=== PATIENT | male | born 1965 | race Caucasian/White ===

== ENCOUNTER 2017-01-18 21:28 | Emergency (ER) | payer OTHER ==
[~2017-01-18] VITALS: Ht 167.6 cm; Wt 92.1 kg
[2017-01-18] MEDS ORDERED: SIMV20TA3 PO (21:49)
[2017-01-18] MEDS ORDERED: LISI10TA2 PO (21:49)
[2017-01-18] MEDS ORDERED: OMEP20CA12 PO (21:49)
[2017-01-18] MEDS ORDERED: PREG50CA2 PO (21:49)
[2017-01-18] MEDS ORDERED: INSU100V6 SQ (21:49)
[2017-01-18] MEDS ORDERED: GABA600T2 PO (21:49)
[2017-01-18] MEDS ORDERED: METF-479 PO (21:49)
[2017-01-18] MEDS ORDERED: morphine INJ 10 MG/ML 1ML (SYR OR VIAL) IVP STA (22:18)
[2017-01-18] MEDS ORDERED: CLINDAMYCIN 600 MG/4ML (CLEOCIN) VIAL IV STA (22:18)
[2017-01-18] MEDS ORDERED: CLINDAMYCIN 600 MG/50 ML IVPB 50 ML IV ONE ×2 (22:27→22:30)
--- NOTE | 2017-01-18 22:27 | ED Integumentary General ---
General Chief Complaint: Skin/Wound Problems Stated Complaint: SORES ON R ARM/HAND Nursing Triage Note: PT TO ED 10 W/ C/O MULTIPLE ABSCESSES TO RFA ONSET X2WKS, WORSE TONIGHT. DENIES INJURY. REDNESS NOTED AROUND OPEN WOUND, DRAINING SEROUS FLUID History of Present Illness Time seen by provider: 21:50 Initial Comments Evaluation for multiple abscesses of right upper extremity. Patient states he's been dealing with these for 2-3 weeks. The most painful one at the present time is over the fifth metacarpal on the right hand. He has multiple other abscesses on the right forearm, in bearing stages of healing. He believes the initial one started on the ulnar side of his forearm after a possible spider bite. He's been able to express drainage from them. He is a known diabetic he reports his blood sugar was 140 this morning. He has not been evaluated for the abscesses. Timing/Duration: getting worse Severity: moderate Location: hands, extremities (right upper extremity) Possible Cause: no cause identified Associated Symptoms: denies symptoms, No fever, No flushing, No headache, No nasal congestion, numbness (left lower extremity), No rash Allergies and Home Medications Allergies Coded Allergies: Penicillins (Verified Allergy, Unknown, 01/18/17) Home Medications Clindamycin HCl 300 Mg Capsule, 300 MG PO BID, #20 Ref 0 Prescribed by: ROSALINO COLE on 01/18/172300 Doxycycline Monohydrate 100 Mg Tablet, 100 MG PO BID, #20 Ref 0 Prescribed by: ROSALINO COLE on 01/18/172319 Gabapentin 600 Mg Tablet, 600 MG PO QID, (Reported) Insulin Glargine,Hum.rec.anlog 100 Unit/1 Ml Vial, 100 UNIT SQ, (Reported) Lisinopril 10 Mg Tablet, 10 MG PO DAILY, (Reported) Metformin HCl 1,000 Mg Tab.er.24, 2,000 MG PO, (Reported) Mupirocin Calcium 15 Gm Cream..g., 15 GM TP TID, #1 Ref 0 Prescribed by: ROSALINO COLE on 01/18/172300 Omeprazole 20 Mg Capsule.dr, 20 MG PO, (Reported) Pregabalin 50 Mg Capsule, 50 MG PO TID, (Reported) Simvastatin 20 Mg Tablet, 20 MG PO, (Reported) Constitutional: no symptoms reported, see HPI EENTM: no symptoms reported, see HPI Respiratory: no symptoms reported, see HPI Cardiovascular: no symptoms reported, see HPI Gastrointestinal: no symptoms reported, see HPI Genitourinary: no symptoms reported Musculoskeletal: no symptoms reported, see HPI Skin: see HPI, change in color, lesions, other (multiple abscesses right upper extremity) Psychiatric/Neurological: No Symptoms Reported, See HPI Endocrine: No Symptoms Reported, See HPI Hematologic/Lymphatic: No Symptoms Reported, See HPI All Other Systems Reviewed Negative Unless Noted: Yes Past Hjqvnxx-Xqbiif-Uvkfws Hx Patient Social History Alcohol Use: Denies Use Recreational Drug Use: No Smoking Status: Current Everyday Smoker Type Used: Cigarettes 2nd Hand Smoke Exposure: Yes Recent Foreign Travel: No Contact w/Someone Who Travel: No Recent Infectious Disease Expo: No Recent Hopitalizations: No Surgeries HX Surgeries: Yes Surgeries: Appendectomy Respiratory Hx Respiratory Disorders: No Cardiovascular Hx Cardiac Disorders: Yes Cardiac Disorders: High Cholesterol, Hypertension Neurological Hx Neurological Disorders: Yes Neurological Disorders: Neuropathy Gastrointestinal Hx Gastrointestinal Disorders: Yes Gastrointestinal Disorders: Gastroesophageal Reflux Musculoskeletal Hx Musculoskeletal Disorders: No Endocrine Hx Endocrine Disorders: Yes Endocrine Disorders: Diabetes, Insulin dep HEENT HX ENT Disorders: No Cancer Hx Cancer: No Psychosocial Hx Psychiatric Problems: No Integumentary HX Skin/Integumentary Disorder: No Blood Transfusions Hx Blood Disorders: No Reviewed Nursing Assessment Reviewed/Agree w Nursing PMH: Yes Physical Exam Vital Signs Vital Sign - Last 12Hours 01/18/17 21:34 Temp 99.0 Pulse 81 Resp 20 B/P (MAP) 148/92 Pulse Ox 97 O2 Delivery Room Air Capillary Refill : Less Than 3 Seconds General Appearance: WD/WN, no apparent distress HEENT: PERRL/EOMI, normal ENT inspection, TMs normal, pharynx normal Neck: non-tender, full range of motion, supple, normal inspection Cardiovascular: normal peripheral pulses, regular rate, rhythm, no murmur Respiratory: chest non-tender, lungs clear Gastrointestinal: normal bowel sounds, non tender, soft Extremities: normal range of motion, non-tender, normal inspection, no pedal edema, no calf tenderness, normal capillary refill Neurologic/Psychiatric: no motor/sensory deficits, alert, normal mood/affect, oriented x 3 Skin: normal color, warm/dry Skin Problem Location: upper extremities (right) Skin Problem Character: abscess (the abscess on the right hand, with mild palpation express purulent drainage. Culture obtained. The abscess on the right forearm radial side had marked erythema and tenderness. Again with mild palpation purulent drainage was expressed easily and a culture was obtained. No epitrochlear lymphadenopathy on the right upper extremity. ), drainage, erythema , tenderness Lymphatic: no adenopathy Progress/Results/Core Measures Results/Orders Lab Results Laboratory Tests Test 01/18/17 22:20 01/18/17 22:47 Range/Units White Blood Count 11.1 H 4.3-11.0 10^3/uL Red Blood Count 4.58 4.35-5.85 10^6/uL Hemoglobin 14.4 13.3-17.7 G/DL Hematocrit 42 40-54 % Mean Corpuscular Volume 92 80-99 FL Mean Corpuscular Hemoglobin 31 25-34 PG Mean Corpuscular Hemoglobin Concent 34 32-36 G/DL Red Cell Distribution Width 13.0 10.0-14.5 % Platelet Count 235 130-400 10^3/uL Mean Platelet Volume 9.7 7.4-10.4 FL Neutrophils (%) (Auto) 57 42-75 % Lymphocytes (%) (Auto) 32 12-44 % Monocytes (%) (Auto) 8 0-12 % Eosinophils (%) (Auto) 2 0-10 % Basophils (%) (Auto) 0 0-10 % Neutrophils # (Auto) 6.4 1.8-7.8 X 10^3 Lymphocytes # (Auto) 3.6 1.0-4.0 X 10^3 Monocytes # (Auto) 0.9 0.0-1.0 X 10^3 Eosinophils # (Auto) 0.2 0.0-0.3 10^3/uL Basophils # (Auto) 0.0 0.0-0.1 10^3/uL Erythrocyte Sedimentation Rate 7 0-30 MM/HR Sodium Level 139 135-145 MMOL/L Potassium Level 3.8 3.6-5.0 MMOL/L Chloride Level 107 98-107 MMOL/L Carbon Dioxide Level 22 21-32 MMOL/L Anion Gap 10 5-14 MMOL/L Blood Urea Nitrogen 11 7-18 MG/DL Creatinine 0.89 0.60-1.30 MG/DL Estimat Glomerular Filtration Rate > 60 BUN/Creatinine Ratio 12 Glucose Level 205 H 70-105 MG/DL Calcium Level 8.9 8.5-10.1 MG/DL Total Bilirubin 0.2 0.1-1.0 MG/DL Aspartate Amino Transf (AST/SGOT) 16 5-34 U/L Alanine Aminotransferase (ALT/SGPT) 17 0-55 U/L Alkaline Phosphatase 79 40-136 U/L C-Reactive Protein High Sensitivity 0.32 0.00-0.50 MG/DL Total Protein 6.7 6.4-8.2 G/DL Albumin 3.8 3.2-4.5 G/DL Urine Color YELLOW Urine Clarity CLEAR Urine pH 6 5-9 Urine Specific [place] 1.010 L 1.016-1.022 Urine Protein 2+ H NEGATIVE Urine Glucose (UA) 4+ H NEGATIVE Urine Ketones NEGATIVE NEGATIVE Urine Nitrite NEGATIVE NEGATIVE Urine Bilirubin NEGATIVE NEGATIVE Urine Urobilinogen NORMAL NORMAL MG/DL Urine Leukocyte Esterase NEGATIVE NEGATIVE Urine RBC (Auto) NEGATIVE NEGATIVE Urine RBC NONE /HPF Urine WBC NONE /HPF Urine Squamous Epithelial Cells RARE /HPF Urine Crystals NONE /LPF Urine Bacteria NEGATIVE /HPF Urine Casts NONE /LPF Urine Mucus NEGATIVE /LPF Urine Culture Indicated NO My Orders Orders - ROSALINO COLE Cbc With Automated Diff (01/18/17 22:00) Comprehensive Metabolic Panel (01/18/17 22:00) Hs C Reactive Protein (01/18/17 22:00) Erythrocyte Sedimentation Rate (01/18/17 22:00) Ua Culture If Indicated (01/18/17 22:00) Wound Culture (01/18/17 22:00) Wound Culture (01/18/17 22:01) Saline Lock/Iv-Start (01/18/17 22:01) Morphine Injection (Morphine Injection (01/18/17 22:18) Clindamycin Injection (Cleocin Injection (01/18/17 22:18) Clindamycin 600 Mg/50 Ml Ivpb (Cleocin P (01/18/17 22:30) Clindamycin 600 Mg/50 Ml Ivpb (Cleocin P (01/18/17 22:27) Doxycycline Hyclate Tablet (Vibramycin T (01/18/17 23:01) Dipht,Pertuss(Acell),Tet Adult (Boostrix (01/18/17 23:09) Medications Given in ED Current Medications Medications Dose Ordered Sig/Marin Route Start Time Stop Time Status Last Admin Dose Admin Clindamycin Phosphate/Dextrose 50 ml @ 108 mls/hr ONCE ONCE IV 01/18/17 22:30 01/18/17 22:57 DC 01/18/17 22:34 108 MLS/HR Vital Signs/I&O Vital Sign - Last 12Hours 01/18/17 01/18/17 21:34 23:19 Temp 99.0 97.7 Pulse 81 79 Resp 20 18 B/P (MAP) 148/92 Pulse Ox 97 93 O2 Delivery Room Air Blood Pressure Mean: 110 Progress Note : Time: 21:50 Progress Note Initial evaluation completed, will complete labs and reevaluate. Clindamycin 600 mg IV and morphine 5 mg IV for pain. 2230 WBC 11.1, hemoglobin 14.4, hematocrit 42, platelets 235. ESR 7. CMP normal except glucose 205. UA normal with the exception of 2+ protein and 4+ glucose. C reactive protein 0.32. Discussed lab results with the patient, a son these uncomfortable with him managing at home as long as he has careful and frequent follow-up with Joe Whiteside APRN. Patient agreed to this. His tetanus status is more than 10 years old, we will give him a booster tonight. Departure Impression Impression: Primary Impression: Abscess of right arm Disposition: HOME, SELF-CARE Condition: Stable Departure-Patient Inst. Decision time for Depature: 22:50 Referrals: NICOLE HUDSON DO (PCP) Primary Care Physician Patient Instructions: MRSA (DC), Skin Abscess Add. Discharge Instructions: All discharge instructions reviewed with patient and/or family. Voiced understanding. Keep areas clean and dry. Clean with peroxide. Take antibiotics as prescribed. Follow-up with Joe Whiteside APRN in 2-3 days for culture results. Return to emergency department for fevers, increased wound drainage or abscesses , or any new problems. Scripts Doxycycline Monohydrate (Doxycycline Monohydrate) 100 Mg Tablet 100 MG PO BID, #20 TAB 0 Refills Prov: ROSALINO COLE 01/18/17 Clindamycin HCl (Clindamycin HCl) 300 Mg Capsule 300 MG PO BID, #20 CAP 0 Refills Prov: ROSALINO COLE 01/18/17 Mupirocin Calcium (Mupirocin) 15 Gm Cream..g. 15 GM TP TID, #1 TUBE 0 Refills Prov: ROSALINO COLE 01/18/17 Copy Copies To 1: NICOLE HUDSON AMY ARNP Jan 18, 2017 22:27
[2017-01-18 22:37] LABS: BASOPHILS % (AUTO) 0 % (0-10); EOSINOPHILS # (AUTO) 0.2 10^3/uL (0.0-0.3); EOSINOPHILS % (AUTO) 2 % (0-10); LYMPHOCYTES # (AUTO) 3.6 X 10^3 (1.0-4.0); LYMPHOCYTES % (AUTO) 32 % (12-44); MEAN CORPUSCULAR HEMOGLOBIN 31 PG (25-34); MEAN CORPUSCULAR HGB CONC 34 G/DL (32-36); MEAN CORPUSCULAR VOLUME 92 FL (80-99); MEAN PLATELET VOLUME 9.7 FL (7.4-10.4); MONOCYTES # (AUTO) 0.9 X 10^3 (0.0-1.0); MONOCYTES % (AUTO) 8 % (0-12); NEUTROPHILS # (AUTO) 6.4 X 10^3 (1.8-7.8); NEUTROPHILS % (AUTO) 57 % (42-75); PLATELET COUNT 235 10^3/uL (130-400); RED BLOOD COUNT 4.58 10^6/uL (4.35-5.85); WHITE BLOOD COUNT 11.1 10^3/uL (4.3-11.0)
[2017-01-18 22:53] LABS: BILIRUBIN,URINE NEGATIVE (NEGATIVE); KETONES,URINE NEGATIVE (NEGATIVE); LEUKOCYTE ESTERASE ,URINE NEGATIVE (NEGATIVE); NITRITE,URINE NEGATIVE (NEGATIVE); PH,URINE 6 (5-9); PROTEIN,URINE 2+ (NEGATIVE); UROBILINOGEN,URINE NORMAL (NORMAL)
[2017-01-18 22:54] LABS: ALANINE AMINOTRANSFERASE 17 U/L (0-55); ALBUMIN 3.8 G/DL (3.2-4.5); ANION GAP 10 MMOL/L (5-14); ASPARTATE AMINO TRANSFERASE 16 U/L (5-34); BILIRUBIN,TOTAL 0.2 MG/DL (0.1-1.0); BLOOD UREA NITROGEN 11 MG/DL (7-18); BUN/CREATININE RATIO 12; CALCIUM 8.9 MG/DL (8.5-10.1); CARBON DIOXIDE 22 MMOL/L (21-32); CHLORIDE 107 MMOL/L (98-107); CREATININE SERUM 0.89 MG/DL (0.60-1.30); GFR ESTIMATED > 60; GLUCOSE 205 MG/DL (70-105); POTASSIUM 3.8 MMOL/L (3.6-5.0); SODIUM 139 MMOL/L (135-145); TOTAL PROTEIN 6.7 G/DL (6.4-8.2); hs C REACTIVE PROTEIN 0.32 MG/DL (0.00-0.50)
[2017-01-18 23:01] LABS: ERYTHROCYTE SEDIMENTATION RATE 7 MM/HR (0-30)
[2017-01-18] MEDS ORDERED: DOXYCYCLINE 100 MG (VIBRAMYCIN) TABLET PO STA (23:01)
[2017-01-18] MEDS ORDERED: MUPI15CR11 TP (23:01)
[2017-01-18] MEDS ORDERED: CLIN300C11 PO (23:01)
[2017-01-18] MEDS ORDERED: DOXY100T19 PO ×2 (23:01→23:20)
[2017-01-18 23:04] LABS: SQUAMOUS EPITHELIAL CELL,UR RARE /HPF
[2017-01-18] MEDS ORDERED: TETANUS,DIPTH,PERTUSS P/F (BOOSTRIX) 0.5 ML VIAL IM STA (23:09)
[2017-01-18 23:19] VITALS: BP 149/88
--- OUTSIDE RECORDS SUMMARY | 2017-02-11 10:04 | XMS REPORT ---
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
--- OUTSIDE RECORDS SUMMARY | 2017-02-11 10:04 | XMS REPORT ---
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 Assessment Bloating R14.0 Active Medications Medication Code System Code Instructions Start Date End Date Status Dosage Accu-Chek Britt NDC 0 Test Strips February 08, 2016 as directed Simvastatin [facility] [address]-72 20 mg Orally Once a day February 21, 2016 1 tablet in the evening Gabapentin [facility] [address]-41 300 MG Orally 3 times a day February 08, 2016 1 capsule Lantus [facility] [address]-85 100 UNIT/ML Subcutaneous April 02, 2016 30 units am 25 units pm Accu-Chek Britt NDC 0 glucometer February 08, 2016 as directed Procedures Procedure Coding System Code Date GLYCATED HEMOGLOBIN TEST CPT-4 30761 May 23, 2016 Office Visit, Est Pt., Level 3 CPT-4 21352 May 23, 2016 Vital Signs Date/Time: May 23, 2016 Cardiac Monitoring Heart Rate 88 bpm Weight 183 lbs Height 66.0 in BMI 29.53 Index Blood Pressure Diastolic 68 mmHg Blood Pressure Systolic 124 mmHg Results No Known Results Summary Purpose [employer] Submission
--- OUTSIDE RECORDS SUMMARY | 2017-02-11 10:04 | XMS REPORT ---
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 26667797 Assessment Type 2 diabetes 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 Jun, Active 843611585 ALLERGIES Substance Reaction Event Type Date Status Penicillin V Potassium rash Drug Allergy Jun, Active SOCIAL HISTORY No smoking Hx information available PLAN OF CARE VITAL SIGNS Height 66.0 in 2016-06-25 Weight 184 lbs 2016-06-25 Heart Rate 85 bpm 2016-06-25 Respiratory Rate 16 2016-06-25 BMI 29.70 kg/m2 2016-06-25 Blood pressure systolic 130 mmHg 2016-06-25 Blood pressure diastolic 76 mmHg 2016-06-25 MEDICATIONS Medication Instructions Dosage Frequency Start Date End Date Duration Status Simvastatin 20 mg Orally Once a day 1 tablet in the evening 24h February, Active Accu-Chek Britt glucometer as directed Jan, Active Lisinopril 10 MG Orally Once a day 1 tablet 24h Active Lantus 100 UNIT/ML Subcutaneous 2 times a day 30 units am 25 units pm 12h Mar, Active Metformin HCl 500 MG Orally Twice a day 1-2tablet with meals titrate from 1 tab qd to 2 tab qd over several weeks 12h Active Pravastatin Sodium 40 MG Orally Once a day 1 tablet 24h Active Bactrim DS 800-160 MG Orally 2 times a day 1 tablet 12h Jun, Jun, 10 day(s) Active Accu-Chek Britt Test Strips as directed Jan, Active Gabapentin 300 MG Orally 3 times a day 1 capsule 8h Jan, Active BD Pen Needle Nancy U/F BD PEN NEEDLE NANCY subcutaneous 2 times a day as directed 12h February, Active RESULTS No Results PROCEDURES Procedure Date Ordered Related Diagnosis Body Site Office Visit, Est Pt., Level 3 Jun 25, 2016 IMMUNIZATIONS No Known Immunizations
--- OUTSIDE RECORDS SUMMARY | 2017-02-11 10:04 | XMS REPORT ---
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 Medications Medication Code System Code Instructions Start Date End Date Status Dosage Accu-Chek Britt NDC 0 glucometer February 08, 2016 as directed Gabapentin NDC [address]-72 300 MG Orally one capsulr at bedtime for 5 days , increase to 1 capsule BID, then 1 capsules TID February 08, 2016 1 capsule Accu-Chek Britt NDC 0 Test Strips February 08, 2016 as directed Procedures Procedure Coding System Code Date GLYCATED HEMOGLOBIN TEST CPT-4 04714 February 08, 2016 Office Visit, New Pt., Level 2 CPT-4 55441 February 08, 2016 Vital Signs Date/Time: February 08, 2016 Temperature 99.0 F Weight 164.6 lbs Height 66.0 in BMI 26.56 Index Blood Pressure Diastolic 70 mmHg Blood Pressure Systolic 132 mmHg Cardiac Monitoring Heart Rate 96 bpm Results Name Result Date Reference Range Unit Abnormality Flag A1C (IN HOUSE) ----A1C IN HOUSE 12.9 [id number] 4.3 - 5.6 % ----Lot [id number] ----Exp date [id number] Summary Purpose [employer]ClinicalWorks Submission
--- OUTSIDE RECORDS SUMMARY | 2017-02-11 10:04 | XMS REPORT ---
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 Assessment Dyspepsia R10.13 Active Medications Medication Code System Code Instructions Start Date End Date Status Dosage Lisinopril [facility] [address]-92 10 mg Orally Once a day 1 tablet Simvastatin [facility] [address]-53 20 mg Orally Once a day February 21, 2016 1 tablet in the evening Lantus [facility] [address]-82 100 UNIT/ML Subcutaneous 2 times a day April 02, 2016 35 units am 25 units pm BD Pen Needle Nancy U/F NDC 0 BD PEN NEEDLE NANCY subcutaneous 2 times a day February 21, 2016 as directed Accu-Chek Britt NDC 0 Test Strips 3 times a day February 08, 2016 as directed Omeprazole [facility] [address]-17 20 mg Orally twice a day Jul 29, 2016 1 capsules MetFORMIN HCl ER [facility] [address]-49 500 MG Orally twice a day Jul 29, 2016 2 tablet with evening meal Gabapentin [facility] [address]-32 300 MG Orally 3 times a day February 08, 2016 1 capsule am noon 2 hs Accu-Chek Britt NDC 0 glucometer February 08, 2016 as directed Procedures Procedure Coding System Code Date GLYCATED HEMOGLOBIN TEST CPT-4 94070 Aug 29, 2016 Office Visit, Est Pt., Level 3 CPT-4 35840 Aug 29, 2016 Vital Signs Date/Time: Aug 29, 2016 Cardiac Monitoring Heart Rate 82 bpm Weight 182.8 lbs Height 66.0 in BMI 29.50 Index Blood Pressure Diastolic 70 mmHg Blood Pressure Systolic 124 mmHg Results Name Result Date Reference Range Unit Abnormality Flag A1C (IN HOUSE) ----A1C IN HOUSE 8.5 [id number] 4.3 - 5.6 % ----Previous A1c 12.2 [id number] ----Lot [id number] ----Exp date [id number] Summary Purpose [employer]Works Submission
--- OUTSIDE RECORDS SUMMARY | 2017-02-11 10:04 | XMS REPORT ---
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
--- OUTSIDE RECORDS SUMMARY | 2017-02-11 10:04 | XMS REPORT ---
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 [address]-56 100 UNIT/ML Subcutaneous 2 times a day 20 u am 18 u pm Accu-Chek Britt NDC 0 Test Strips February 08, 2016 as directed Gabapentin [facility] [address]-51 300 MG Orally 3 times a day February 08, 2016 1 capsule BD Pen Needle Nacny U/F NDC 0 BD PEN NEEDLE NANCY subcutaneous 2 times a day February 21, 2016 as directed Lantus [facility] [address]-88 100 UNIT/ML Subcutaneous April 02, 2016 as directed 20 units in am and 18 units in pm Simvastatin [facility] [address]-11 20 mg Orally Once a day February 21, 2016 1 tablet in the evening Accu-Chek Britt NDC 0 glucometer February 08, 2016 as directed Procedures Procedure Coding System Code Date Office Visit, Est Pt., Level 3 CPT-4 50001 April 23, 2016 Vital Signs Date/Time: April 23, 2016 Cardiac Monitoring Heart Rate 88 bpm Weight 174.0 lbs Height 66.0 in Blood Pressure Diastolic 78 mmHg Blood Pressure Systolic 128 mmHg Results No Known Results Summary Purpose [employer]Works Submission
--- OUTSIDE RECORDS SUMMARY | 2017-02-11 10:04 | XMS REPORT ---
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
--- OUTSIDE RECORDS SUMMARY | 2017-02-11 10:04 | XMS REPORT ---
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 Assessment 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 Medications Medication Code System Code Instructions Start Date End Date Status Dosage Simvastatin [facility] [address]-10 20 mg Orally Once a day February 21, 2016 1 tablet in the evening Lisinopril [facility] [address]-65 10 mg Orally Once a day 1 tablet BD Pen Needle Nancy U/F NDC 0 BD PEN NEEDLE NANCY subcutaneous 2 times a day February 21, 2016 as directed Omeprazole [facility] [address]-52 20 mg Orally Once a day Jul 29, 2016 1 capsules Bactrim DS [facility] [address]-33 800-160 MG Orally 2 times a day Jul 29, 2016 Aug 08, 2016 1 tablet Accu-Chek Britt NDC 0 glucometer February 08, 2016 as directed Accu-Chek Britt NDC 0 Test Strips 3 times a day February 08, 2016 as directed Lantus [facility] [address]-28 100 UNIT/ML Subcutaneous 2 times a day April 02, 2016 30 units am 25 units pm MetFORMIN HCl ER [facility] [address]-55 500 MG Orally twice a day Jul 29, 2016 2 tablet with evening meal Gabapentin [facility] [address]-51 300 MG Orally 3 times a day February 08, 2016 1 capsule Metformin HCl [facility] [address]-06 500 MG Orally Twice a day 1- 2tablet with meals titrate from 1 tab qd to 2 tab qd over several weeks Procedures Procedure Coding System Code Date Office Visit, Est Pt., Level 3 CPT-4 06979 Jul 29, 2016 Vital Signs Date/Time: Jul 29, 2016 Cardiac Monitoring Heart Rate 86 bpm Weight 183.6 lbs Height 66.0 in BMI 29.63 Index Blood Pressure Diastolic 70 mmHg Blood Pressure Systolic 136 mmHg Results No Known Results Summary Purpose eClinicalWorks Submission
--- OUTSIDE RECORDS SUMMARY | 2017-02-11 10:05 | XMS REPORT ---
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
--- OUTSIDE RECORDS SUMMARY | 2017-02-11 10:05 | XMS REPORT ---
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
--- OUTSIDE RECORDS SUMMARY | 2017-02-11 10:05 | XMS REPORT ---
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
--- OUTSIDE RECORDS SUMMARY | 2017-02-11 10:05 | XMS REPORT ---
Author Author FELECIA HOLLOWAY [facility] Address [address] [place] [address] Care Team Providers Care Mobile Mechanic Name Role Phone FELECIA HOLLOWAY Unavailable PROBLEMS Type Condition ICD9-CM Code [id number] Code Onset Dates Condition Status SNOMED Code Problem Dyspepsia R10.13 Active 444256962 Problem Bloating R14.0 Active 677282270 Assessment Type 2 diabetes 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 Sep, Active 502668170 Problem Hypercholesteremia E78.0 Active 87690270 Problem 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 05875793 ALLERGIES Substance Reaction Event Type Date Status Penicillin V Potassium rash Drug Allergy Sep, Active SOCIAL HISTORY No smoking Hx information available PLAN OF CARE VITAL SIGNS Height 66.0 in 2016-09-26 Weight 184.8 lbs 2016-09-26 Heart Rate 108 bpm 2016-09-26 Respiratory Rate 18 2016-09-26 BMI 29.82 kg/m2 2016-09-26 Blood pressure systolic 122 mmHg 2016-09-26 Blood pressure diastolic 64 mmHg 2016-09-26 MEDICATIONS Medication Instructions Dosage Frequency Start Date End Date Duration Status Omeprazole 20 mg Orally twice a day 1 capsules Jul, Active Accu-Chek Britt glucometer as directed Jan, Active MetFORMIN HCl ER 500 MG Orally twice a day 2 tablet with evening meal Jul, Active Accu-Chek Britt Test Strips as directed 8h Jan, Active Lantus 100 UNIT/ML Subcutaneous 2 times a day 40units am 30 pm 12h Mar Active Simvastatin 20 mg Orally Once a day 1 tablet in the evening 24h February, Active BD Pen Needle Nancy U/F BD PEN NEEDLE NANCY subcutaneous 2 times a day as directed 12February, Active Gabapentin 600 MG Orally 3 times a day 1 capsule am noon 2 hs 8h Jan, Active Lisinopril 10 mg Orally Once a day 1 tablet 24h Active RESULTS No Results PROCEDURES Procedure Date Ordered Related Diagnosis Body Site Office Visit, Est Pt., Level 3 Sep 26, 2016 IMMUNIZATIONS No Known Immunizations
--- OUTSIDE RECORDS SUMMARY | 2017-02-11 10:05 | XMS REPORT ---
Author Author FELECIA HOLLOWAY [facility] Address [address] [place] [address] Care Team Providers Care Perpetual Inventory Clerk Name Role Phone FELECIA HOLLOWAY Unavailable PROBLEMS Type Condition ICD9-CM Code [id number] Code Onset Dates Condition Status SNOMED Code Problem Enlarged testicle N50.89 Active 780032700 Problem Dyspepsia R10.13 Active 145455565 Problem 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 19712534 Assessment Enlarged testicle N50.89 14 Sep, 2016 Active 329435052 Problem Bloating R14.0 Active 417665971 Problem Hypercholesteremia E78.0 Active 13172379 ALLERGIES Unknown Allergies SOCIAL HISTORY No smoking Hx information available PLAN OF CARE Activity Details Pending Test Ultrasound : Testicular ,Reason: VITAL SIGNS MEDICATIONS Unknown Medications RESULTS Name Result Date Reference Range Ultrasound : Testicular 2016-10-08 PROCEDURES No Known procedures IMMUNIZATIONS No Known Immunizations
== END 2017-01-18 23:21 | disposition home or self-care (01) ==
LOC: EDUNIT# 21:28 → ER 21:30
DX: L02.413 Cutaneous abscess of right upper limb (principal); Z23 Encounter for immunization; E11.9 Type 2 diabetes mellitus without complications; I10 Essential (primary) hypertension; F17.210 Nicotine dependence, cigarettes, uncomplicated; Z79.4 Long term (current) use of insulin; Z79.84 Long term (current) use of oral hypoglycemic drugs; Z79.899 Other long term (current) drug therapy
CPT/HCPCS: 36415; 80053; 81000; 85025; 85652; 86141; 87070; 87077; 87186; 87205; 90471; 90715; 96365; 96375

== ENCOUNTER 2017-05-31 05:44 | Inpatient (IN) | payer MEDICAID, OTHER ==
[~2017-05-31] VITALS: Ht 167.6 cm; Wt 94.3 kg
[2017-05-31] VITALS (19 sets, daily range): BP systolic 104–136; BP diastolic 67–83
[~2017-05-31 05:44] MED LIST: CLIN300C11 PO; DOXY100T19 PO; GABA600T2 PO; INSU100V6 SQ; LISI10TA2 PO; METF-479 PO; MUPI15CR11 TP; OMEP20CA12 PO; PREG50CA2 PO; SIMV20TA3 PO
[2017-05-31] MEDS ORDERED: ASPIRIN 81 MG CHEW (CHILDREN'S ASA) PO ONE (06:00)
[2017-05-31 06:05] LABS: BASOPHILS % (AUTO) 0 % (0-10); EOSINOPHILS # (AUTO) 0.2 10^3/uL (0.0-0.3); EOSINOPHILS % (AUTO) 1 % (0-10); LYMPHOCYTES # (AUTO) 4.8 X 10^3 (1.0-4.0); LYMPHOCYTES % (AUTO) 38 % (12-44); MEAN CORPUSCULAR HEMOGLOBIN 32 PG (25-34); MEAN CORPUSCULAR HGB CONC 34 G/DL (32-36); MEAN CORPUSCULAR VOLUME 93 FL (80-99); MEAN PLATELET VOLUME 9.8 FL (7.4-10.4); MONOCYTES % (AUTO) 8 % (0-12); NEUTROPHILS # (AUTO) 6.7 X 10^3 (1.8-7.8); NEUTROPHILS % (AUTO) 53 % (42-75); PLATELET COUNT 219 10^3/uL (130-400); RED BLOOD COUNT 4.99 10^6/uL (4.35-5.85); RED CELL DISTRIBUTION WIDTH 13.7 % (10.0-14.5); WHITE BLOOD COUNT 12.6 10^3/uL (4.3-11.0)
[2017-05-31 06:17] LABS: INR 0.9 (0.8-1.4); PROTHROMBIN TIME PATIENT 12.1 SEC (12.2-14.7)
[2017-05-31] MEDS ORDERED: NS IV 1000 ML 1,000 ML IV ONE ×2 (06:17→07:09)
[2017-05-31 06:25] LABS: ALANINE AMINOTRANSFERASE 24 U/L (0-55); ALBUMIN 3.9 GM/DL (3.2-4.5); ANION GAP 11 MMOL/L (5-14); ASPARTATE AMINO TRANSFERASE 16 U/L (5-34); BILIRUBIN,TOTAL 0.3 MG/DL (0.1-1.0); BLOOD UREA NITROGEN 12 MG/DL (7-18); BUN/CREATININE RATIO 13; CALCIUM 9.1 MG/DL (8.5-10.1); CARBON DIOXIDE 17 MMOL/L (21-32); CHLORIDE 111 MMOL/L (98-107); CREATININE SERUM 0.92 MG/DL (0.60-1.30); GFR ESTIMATED > 60; GLUCOSE 220 MG/DL (70-105); POTASSIUM 4.1 MMOL/L (3.6-5.0); SODIUM 139 MMOL/L (135-145); TOTAL PROTEIN 6.9 GM/DL (6.4-8.2)
[2017-05-31] MEDS ORDERED: DILTIAZEM 25 MG/5 ML INJ (CARDIZEM) VIAL IVP ONE (06:30)
[2017-05-31] MEDS: DILTIAZEM DRIP 100 MG in SODIUM CHLORIDE (ADD-VANTAGE) 100 ML IV SCH (06:32)
[2017-05-31 06:33] LABS: MYOGLOBIN SERUM 35.5 NG/ML (10.0-92.0)
--- NOTE | 2017-05-31 06:34 | ED Cardiac General ---
History of Present Illness General Chief Complaint: Cardiac/General Problems Stated Complaint: HRT RACING SINCE 10P.M. LAST NIGHT Nursing Triage Note: PT TO ED 5 W/ C/O RAPID HEART RATE ET CHEST "TIGHTNESS" ONSET 2199. DOES REPORT SOB W/ ONSET. NO OTHER C/O VOICED Source: patient Exam Limitations: no limitations History of Present Illness Time seen by provider: 06:10 Initial Comments Here with report of chest tightness and fast heart rate started at about 10 p.m. last night. Denies nausea, vomiting, weakness or sweating. It did not get better throughout the night so he presented to the ER this morning. He has not had anything like this before. He does smoke and he does have hypertension and diabetes as well as high cholesterol. Timing/Duration: constant Severity: mild Location: central, other (tightness and palpitations) Activities at Onset: none Prior CP/Workup: no prior chest pain Modifying Factors: improves with rest NTG SL CLINICAL TRIALS SPECIALIST: No ASA po CLINICAL TRIALS SPECIALIST: No Associated Systoms: Chest Pain (tightness), No Cough, No Fever/Chills, No Nausea/Vomiting, No Shortness of Air, No Weakness Allergies and Home Medications Allergies Coded Allergies: Penicillins (Verified Allergy, Unknown, 01/18/17) Home Medications Gabapentin 600 Mg Tablet, 600 MG PO QID, (Reported) Insulin Glargine,Hum.rec.anlog 100 Unit/1 Ml Vial, 100 UNIT SQ, (Reported) Lisinopril 10 Mg Tablet, 10 MG PO DAILY, (Reported) Metformin HCl 1,000 Mg Tab.er.24, 2,000 MG PO, (Reported) Omeprazole 20 Mg Capsule.dr, 20 MG PO, (Reported) Pregabalin 50 Mg Capsule, 50 MG PO TID, (Reported) Simvastatin 20 Mg Tablet, 20 MG PO, (Reported) Review of Systems Constitutional: see HPI, No chills, No fever EENTM: No Symptoms Reported Respiratory: See HPI, Denies Shortness of Air, Denies Wheezing Cardiovascular: See HPI, Chest Pain, Palpitations Gastrointestinal: No Symptoms Reported, Denies Nausea, Denies Vomiting Genitourinary: No Symptoms Reported Musculoskeletal: no symptoms reported Skin: no symptoms reported All Other Systems Reviewed Negative Unless Noted: Yes Past Bbemjmq-Fildfa-Gkpmwe Hx Patient Social History Alcohol Use: Denies Use Recreational Drug Use: No Smoking Status: Current Everyday Smoker Type Used: Cigarettes 2nd Hand Smoke Exposure: Yes Recent Foreign Travel: No Contact w/Someone Who Travel: No Recent Infectious Disease Expo: No Recent Hopitalizations: No Surgeries HX Surgeries: Yes Surgeries: Appendectomy Respiratory Hx Respiratory Disorders: No Cardiovascular Hx Cardiac Disorders: Yes Cardiac Disorders: High Cholesterol, Hypertension Neurological Hx Neurological Disorders: Yes Neurological Disorders: Neuropathy Genitourinary Hx Genitourinary Disorders: No Gastrointestinal Hx Gastrointestinal Disorders: Yes Gastrointestinal Disorders: Gastroesophageal Reflux Musculoskeletal Hx Musculoskeletal Disorders: No Endocrine Hx Endocrine Disorders: Yes Endocrine Disorders: Diabetes, Insulin dep HEENT HX ENT Disorders: No Cancer Hx Cancer: No Psychosocial Hx Psychiatric Problems: No Integumentary HX Skin/Integumentary Disorder: No Blood Transfusions Hx Blood Disorders: No Reviewed Nursing Assessment Reviewed/Agree w Nursing PMH: Yes Family Medical History Significant Family History: No Pertinent Family Hx Physical Exam Vital Signs Vital Sign - Last 12Hours 05/31/17 05/31/17 05:51 05:59 Temp 97.5 Pulse 139 Resp 20 B/P (MAP) 121/90 Pulse Ox 98 O2 Delivery Room Air O2 Flow Rate 2.00 Capillary Refill : Less Than 3 Seconds General Appearance: No Apparent Distress, WD/WN HEENT: PERRL/EOMI, Pharynx Normal Neck: Full Range of Motion, Supple Respiratory: Lungs Clear, Normal Breath Sounds Cardiovascular: No Murmur, Tachycardia Gastrointestinal: Non Tender, Soft Extremity: Normal Capillary Refill, Normal Range of Motion, Non Tender Neurologic/Psychiatric: Alert, Oriented x3 Skin: Normal Color, Warm/Dry Other comments Distal pulses 4 extremities but decreased on the left lower extremity. 2+ to bilateral upper extremities and right lower extremity on dorsalis pedis and posterior tibia. Left lower extremity with 1+ pulse verified by Doppler to the dorsalis pedis and posterior tibia. Progress/Results/Core Measures Results/Orders Lab Results Laboratory Tests Test 05/31/17 05:58 05/31/17 06:20 Range/Units White Blood Count 12.6 H 4.3-11.0 10^3/uL Red Blood Count 4.99 4.35-5.85 10^6/uL Hemoglobin 15.7 13.3-17.7 G/DL Hematocrit 47 40-54 % Mean Corpuscular Volume 93 80-99 FL Mean Corpuscular Hemoglobin 32 25-34 PG Mean Corpuscular Hemoglobin Concent 34 32-36 G/DL Red Cell Distribution Width 13.7 10.0-14.5 % Platelet Count 219 130-400 10^3/uL Mean Platelet Volume 9.8 7.4-10.4 FL Neutrophils (%) (Auto) 53 42-75 % Lymphocytes (%) (Auto) 38 12-44 % Monocytes (%) (Auto) 8 0-12 % Eosinophils (%) (Auto) 1 0-10 % Basophils (%) (Auto) 0 0-10 % Neutrophils # (Auto) 6.7 1.8-7.8 X 10^3 Lymphocytes # (Auto) 4.8 H 1.0-4.0 X 10^3 Monocytes # (Auto) 1.0 0.0-1.0 X 10^3 Eosinophils # (Auto) 0.2 0.0-0.3 10^3/uL Basophils # (Auto) 0.0 0.0-0.1 10^3/uL Prothrombin Time 12.1 L 12.2-14.7 SEC INR Comment 0.9 0.8-1.4 Activated Partial Thromboplast Time 35 24-35 SEC Sodium Level 139 135-145 MMOL/L Potassium Level 4.1 3.6-5.0 MMOL/L Chloride Level 111 H 98-107 MMOL/L Carbon Dioxide Level 17 L 21-32 MMOL/L Anion Gap 11 5-14 MMOL/L Blood Urea Nitrogen 12 7-18 MG/DL Creatinine 0.92 0.60-1.30 MG/DL Estimat Glomerular Filtration Rate > 60 BUN/Creatinine Ratio 13 Glucose Level 220 H 70-105 MG/DL Calcium Level 9.1 8.5-10.1 MG/DL Magnesium Level 2.0 1.8-2.4 MG/DL Total Bilirubin 0.3 0.1-1.0 MG/DL Aspartate Amino Transf (AST/SGOT) 16 5-34 U/L Alanine Aminotransferase (ALT/SGPT) 24 0-55 U/L Alkaline Phosphatase 73 40-136 U/L Myoglobin 35.5 10.0-92.0 NG/ML Troponin I < 0.30 <0.30 NG/ML Total Protein 6.9 6.4-8.2 GM/DL Albumin 3.9 3.2-4.5 GM/DL Thyroid Stimulating Hormone (TSH) 1.06 0.35-4.94 UIU/ML D-Dimer 0.28 0.00-0.49 UG/ML My Orders Orders - JUDITH NIELSON MD Fibrin Degradation Products (05/31/17 06:26) Diltiazem Injection (Cardizem Injection) (05/31/17 06:30) Sodium Chloride (Ad... W/Diltiazem Drip (05/31/17 06:30) Ns Iv 1000 Ml (Sodium Chloride 0.9%) (05/31/17 07:09) Enoxaparin Injection (Lovenox Injection) (05/31/17 07:15) Medications Given in ED Current Medications Medications Dose Ordered Sig/Marin Route Start Time Stop Time Status Last Admin Dose Admin Aspirin 324 mg ONCE ONCE PO 05/31/17 06:00 05/31/17 06:02 DC 05/31/17 06:02 324 MG Diltiazem HCl 10 mg ONCE ONCE IVP 05/31/17 06:30 05/31/17 06:31 DC 05/31/17 06:32 10 MG Enoxaparin Sodium 90 mg ONCE ONCE SC 05/31/17 07:15 05/31/17 07:16 DC 05/31/17 07:21 90 MG Sodium Chloride 1,000 ml @ 0 mls/hr Q0M ONCE IV 05/31/17 06:17 05/31/17 06:18 DC 05/31/17 06:26 0 MLS/HR Sodium Chloride 1,000 ml @ 0 mls/hr Q0M ONCE IV 05/31/17 07:09 05/31/17 07:11 DC 05/31/17 07:17 1,000 MLS/HR Vital Signs/I&O Vital Sign - Last 12Hours 05/31/17 05/31/17 05/31/17 05:51 05:59 06:32 Temp 97.5 97.5 Pulse 139 130 Resp 20 20 B/P (MAP) 121/90 109/86 Pulse Ox 98 97 99 O2 Delivery Room Air Nasal Cannula O2 Flow Rate 2.00 2.00 Blood Pressure Mean: 100 Progress Note : Progress Note Seen and evaluated. IV, labs, EKG and chest x-ray ordered. Normal saline 1 L bolus. Patient has persistent rhythm at rate of 130. Junctional retrograde P' s noted on EKG although I believe this is likely atrial flutter. Cardizem bolus of 10 mg IV and drip initiated at 10 mg an hour. Monitor patient. Cardizem drip increased to 20 mg an hour IV and repeat normal saline 1 L bolus. I did discuss the case with Dr. Zendejas at 0709 and he accepts patient in consult. I did discuss the case with Dr. Carmen Sanchez at 0721 and she accepts patient for admission. Patient informed and agrees with plan. Admit, inpatient status. 0726:Lovenox 90 mg subcutaneous ordered and given. Patient noted to have spontaneous resolution of underlying rhythm and now is in sinus rhythm with a rate of 75. Cardizem drip continues. ECG Initial ECG Impression Date: May 31, 2017 Initial ECG Impression Time: 05:55 Initial ECG Rate: 128 Comment Junctional rhythm versus atrial flutter with buried P segment. Right axis deviation. No evidence of ST elevation [place]. No previous available for comparison. Interpreted by me. Diagnostic Imaging Diagonstic Imaging: Xray Plain Films/CT/US/NM/MRI: chest Reviewed: Reviewed by Me Departure Communication Time/Spoke to Admitting Phy: 07:21 Time/Spoke to Consulting Physi: 07:09 Impression Impression: Primary Impression: Atrial flutter with rapid ventricular response Additional Impressions: Chest pain Qualified Codes: R07.9 - Chest pain, unspecified Peripheral vascular disease of lower extremity Disposition: ADMITTED INPATIENT Condition: Stable Admissions Decision to Admit Reason: Admit from ER (General) Decision to Admit/Date: May 31, 2017 Time/Decision to Admit Time: 07:09 Departure-Patient Inst. Referrals: [facility] (PCP) Primary Care Physician FELECIA HOLLOWAY (Family) Primary Care Physician JUDITH NIELSON MD May 31, 2017 06:34
[2017-05-31] MEDS ORDERED: ENOXAPARIN 100 MG/1 ML (LOVENOX) SYR SC ONE (07:15)
--- NOTE | 2017-05-31 07:25 | Diagnostic Imaging Report ---
INDICATION: Shortness of breath and chest pain. No prior examinations are available for comparison. FINDINGS: There is mild cardiomegaly. Mediastinum is unremarkable. There is some right basilar atelectasis and/or pneumonitis. There is no pleural effusion or pneumothorax. IMPRESSION: Mild cardiomegaly. There is minimal right basilar subsegmental atelectasis and/or pneumonitis. Dictated by: Dictated on workstation # [id number]
[2017-05-31] MEDS ORDERED: METF-478 PO (08:37)
[2017-05-31] MEDS ORDERED: ACET-2267 PO (08:37)
[2017-05-31] MEDS ORDERED: leg cramp PO (08:37)
[2017-05-31] MEDS ORDERED: INSU100V6 SQ (08:37)
[2017-05-31] MEDS ORDERED: GABA600T2 PO (08:37)
[2017-05-31] MEDS ORDERED: morphine INJ 4 MG/ML 1 ML (VIAL/SYRINGE) IV PRN (10:00)
[2017-05-31] MEDS ORDERED: NITROGLYCERIN SUBLINGUAL 0.4 MG TAB (NITROSTAT) SL PRN (10:00)
[2017-05-31] MEDS ORDERED: NS IV 1000 ML 1,000 ML IV SCH (10:00)
[2017-05-31] MEDS: PREGABALIN 50 MG (LYRICA) CAP PO SCH ×3 (10:16→21:37)
[2017-05-31] MEDS: lisINopril 10 MG (PRINIVIL) TAB PO SCH (10:16)
[2017-05-31] MEDS: GABAPENTIN 600 MG (NEURONTIN) TAB PO SCH (10:17)
[2017-05-31] MEDS: PANTOPRAZOLE 20 MG TABLET (PROTONIX) PO SCH ×2 (10:17→21:37)
[2017-05-31] MEDS: inSUlin DETERMIR 1 UNIT/0.01 ML (LEVEMIR) CHARGE PER UNIT SQ SCH (10:29)
[2017-05-31] MEDS ORDERED: fentaNYL INJECTION 100 MCG/2 ML AMP ONE (10:34)
[2017-05-31] MEDS ORDERED: MIDAZOLAM 5 MG/5 ML (VERSED) VIAL ONE (10:34)
[2017-05-31] MEDS ORDERED: NS IV 1000 ML 0 ML ONE (10:35)
[2017-05-31] MEDS ORDERED: HEParin (CATH LAB) 2,000 ML IV ONE (10:35)
[2017-05-31] MEDS: POTASSIUM CL 10MEQ/50ML IVPB 50 ML IV SCH (10:38)
[2017-05-31] MEDS: KCL 20 MEQ TAB (K-DUR) PO SCH (10:38)
[2017-05-31] MEDS: MAGNESIUM 1 GM/100 ML IVPB 100 ML IV SCH (10:38)
--- NOTE | 2017-05-31 10:48 | Consultation-Cardiology ---
HPI-Cardiology Cardiology Consultation Date of Consultation 05/31/17 Date of Admission Time Seen by Provider: 10:00 Indication: chest pain, palpitation HPI 51 years old gentleman with history of diabetes mellitus, hypertension, hyperlipidemia and tobaccoism, has been having recurrent episodes of palpitation and chest pain for the last month, reporting episodes feeling heart rate racing associated with tightness in the upper side of his chest radiating to the back lasting for few hours and resolving spontaneously. Last night had an episode of palpitation that persisted associated with tightness all over his chest radiating to the back. Came into the emergency room and was noted to be in supraventricular tachycardia, heart rate has improved after Cardizem drip, return to sinus rhythm. Currently feeling somewhat better. Has been complaining off left leg cramps and pain feeling hot and cold in his leg then it becomes congested, has been having cramps in his legs. Noted to have diminished pulse in the left leg compared to the right which is also diminished. Home Medications & Allergies Allergies: Coded Allergies: Penicillins (Verified Allergy, Unknown, 01/18/17) Home Medication List Reviewed: Yes [id number] Hx Patient Social History Alcohol Use: Denies Use Recreational Drug Use: No Smoking Status: Current Everyday Smoker Type Used: Cigarettes 2nd Hand Smoke Exposure: Yes Recent Foreign Travel: No Recent Infectious Disease Expo: No Recent Hopitalizations: No Physical Abuse Screen: No Sexual Abuse: No Past Medical History past medical history as discussed below Family Medical History Significant Family History: No Pertinent Family Hx Family Medical Hx father had history of myocardial infarction and in his late 40s Family History: Alzheimer's disease 19 MOTHER Diabetes mellitus 19 MOTHER FH: [place] (myocardial infarction) 19 FATHER ( at 48 ) FH: pancreatic cancer grandfather Hypercholesterolemia 19 MOTHER Hypertension 19 MOTHER Constitutional: see HPI, malaise EENTM: no symptoms reported, see HPI Respiratory: see HPI, No cough, No dyspnea on exertion, No hemoptysis, No orthopnea, No phlegm, short of breath, No stridor, No wheezing, No other Cardiovascular: see HPI, chest pain, No edema, No Hx of Intervention, palpitations, No syncope, vascular heart diseas, other (claudication) Gastrointestinal: no symptoms reported, see HPI Genitourinary: no symptoms reported, see HPI Musculoskeletal: no symptoms reported, see HPI Skin: no symptoms reported, see HPI Psychiatric/Neurological: No Symptoms Reported, See HPI Reviewed Test Results Reviewed Test Results Lab Laboratory Tests Test 05/31/17 05:58 05/31/17 06:20 Range/Units White Blood Count 12.6 H 4.3-11.0 10^3/uL Red Blood Count 4.99 4.35-5.85 10^6/uL Hemoglobin 15.7 13.3-17.7 G/DL Hematocrit 47 40-54 % Mean Corpuscular Volume 93 80-99 FL Mean Corpuscular Hemoglobin 32 25-34 PG Mean Corpuscular Hemoglobin Concent 34 32-36 G/DL Red Cell Distribution Width 13.7 10.0-14.5 % Platelet Count 219 130-400 10^3/uL Mean Platelet Volume 9.8 7.4-10.4 FL Neutrophils (%) (Auto) 53 42-75 % Lymphocytes (%) (Auto) 38 12-44 % Monocytes (%) (Auto) 8 0-12 % Eosinophils (%) (Auto) 1 0-10 % Basophils (%) (Auto) 0 0-10 % Neutrophils # (Auto) 6.7 1.8-7.8 X 10^3 Lymphocytes # (Auto) 4.8 H 1.0-4.0 X 10^3 Monocytes # (Auto) 1.0 0.0-1.0 X 10^3 Eosinophils # (Auto) 0.2 0.0-0.3 10^3/uL Basophils # (Auto) 0.0 0.0-0.1 10^3/uL Prothrombin Time 12.1 L 12.2-14.7 SEC INR Comment 0.9 0.8-1.4 Activated Partial Thromboplast Time 35 24-35 SEC Sodium Level 139 135-145 MMOL/L Potassium Level 4.1 3.6-5.0 MMOL/L Chloride Level 111 H 98-107 MMOL/L Carbon Dioxide Level 17 L 21-32 MMOL/L Anion Gap 11 5-14 MMOL/L Blood Urea Nitrogen 12 7-18 MG/DL Creatinine 0.92 0.60-1.30 MG/DL Estimat Glomerular Filtration Rate > 60 BUN/Creatinine Ratio 13 Glucose Level 220 H 70-105 MG/DL Calcium Level 9.1 8.5-10.1 MG/DL Magnesium Level 2.0 1.8-2.4 MG/DL Total Bilirubin 0.3 0.1-1.0 MG/DL Aspartate Amino Transf (AST/SGOT) 16 5-34 U/L Alanine Aminotransferase (ALT/SGPT) 24 0-55 U/L Alkaline Phosphatase 73 40-136 U/L Myoglobin 35.5 10.0-92.0 NG/ML Troponin I < 0.30 <0.30 NG/ML Total Protein 6.9 6.4-8.2 GM/DL Albumin 3.9 3.2-4.5 GM/DL Thyroid Stimulating Hormone (TSH) 1.06 0.35-4.94 UIU/ML D-Dimer 0.28 0.00-0.49 UG/ML Physical Exam Vital Signs Vital Sign - Last 12Hours 05/31/17 05/31/17 05:51 05:59 Temp 97.5 Pulse 139 Resp 20 B/P (MAP) 121/90 Pulse Ox 98 O2 Delivery Room Air O2 Flow Rate 2.00 Capillary Refill : Less Than 3 Seconds General Appearance: No Apparent Distress, WD/WN Eyes: Bilateral Eye EOMI, Bilateral Eye Normal Inspection, Bilateral Eye PERRL HEENT: PERRL/EOMI, TMs Normal, Normal ENT Inspection, Pharynx Normal Neck: Full Range of Motion, Normal Inspection, Non Tender, Supple, Carotid Bruit Respiratory: Chest Non Tender, Lungs Clear, Normal Breath Sounds, No Accessory Muscle Use, No Respiratory Distress Cardiovascular: Regular Rate, Rhythm, No Edema, No Gallop, No JVD, No Murmur, Other (diminished peripheral pulse) Gastrointestinal: Normal Bowel Sounds, No Organomegaly, No Pulsatile Mass, Non Tender, Soft Back: Normal Inspection, No CVA Tenderness, No Vertebral Tenderness Extremity: Normal Inspection, Normal Range of Motion, Non Tender, No Calf Tenderness, Slow Capillary Refill, Other (diminished peripheral pulse) Neurologic/Psychiatric: Alert, Oriented x3, No Motor/Sensory Deficits, Normal Mood/Affect Skin: Normal Color, Warm/Dry Lymphatic: No Adenopathy A/P-Cardiology Admission Diagnosis Chest pain resembling angina Supraventricular tachycardia Claudication Peripheral artery L disease Hypertension Hyperlipidemia Assessment/Plan Chest pain resembling angina, probably secondary to tachycardia, patient has multiple risk factors for coronary artery disease, has been having recurrent chest pain, having claudication with diminished pulses in his lower extremity, I will evaluate coronary angiogram and peripheral angiogram next Claudication, diminished pulses in the lower extremity with significant symptoms on the left lower extremities, plantar peripheral angiogram today. Palpitation, secondary to tachycardia, improved. Supraventricular tachycardia, most for bleeding reentry tachycardia that responded to concentrate blockers. Continue to monitor on telemetry at this time, no changes are recommended Hypertension, restart home medications and monitor Hyperlipidemia, restart medications and monitor Diabetes mellitus, followed and managed by primary care physician Lynette, educated on smoking cessation Strong family history of heart disease with father in his 40s with myocardial infar Clinical Quality Measures AMI/AHF: ASA po Prior to arrival: No DVT/VTE Risk/Contraindication: Risk Factor Score Per Nursin RFS Level Per Nursing on Admit: 3=High HAMMAD PYLE MD May 31, 2017 10:48
--- NOTE | 2017-05-31 10:50 | Cardiac Procedure Note-CS/ASA ---
Pre-Procedure Note Pre-Op Procedure Note H&P Reviewed The H&P was reviewed, patient examined and no changes noted. Date H&P Reviewed: May 31, 2017 Time H&P Reviewed: 10:50 Conscious Sedation Pre-Proced Time Reviewed: 10:50 ASA Class: 3 Airway Mallampati Classification: ([place] appropriate class) I. II. III, IV Lungs Heart ASA score ASA 1: a normal healthy patient ASA 2: a patient with a mild systemic disease (mid diabetes, controlled hypertension, obesity x ASA 3: a patient with a severe systemic disease that limits activity (angina , COPD, prior Myocardial infarction) ASA 4: a patient with an incapacitating disease that is a constant threat to life (CHF, renal failure) ASA 5: a moribund patient not expected to survive 24 hrs. (ruptured aneurysm) ASA 6: a declared brain patient whose organs are being harvested. For emergent operations, add the letter E after the classification Grade 3 Sedation Plan: Analgesia, Amnesia, Plan communicated to team members, Discussed options with patient/fam, Discussed risks with patient/fam Note The patient is an appropriate candidate to undergo the planned procedure, sedation, and anesthesia. The patient immediately re-assessed prior to indication. HAMMAD PYLE MD May 31, 2017 10:50
[2017-05-31] MEDS ORDERED: HEParin 1000 UNIT/ML (10ML VIAL) FOR BOLUS ONE (11:25)
[2017-05-31] MEDS ORDERED: NITROGLYCERIN DRIP 25 MG/D5W 250 ML IV ONE (11:25)
[2017-05-31] MEDS ORDERED: EPTIFIBATIDE BOLUS 20 ML IV ONE (11:26)
[2017-05-31] MEDS ORDERED: ASPIRIN 325 MG (5 GR) TABLET ONE (12:29)
[2017-05-31] MEDS ORDERED: CLOPIDOGREL 300 MG (PLAVIX) TABLET PO ONE (12:29)
[2017-05-31] MEDS ORDERED: PATIENT MAY USE OWN MEDS, ALL PO SCH (12:45)
--- NOTE | 2017-05-31 12:47 | Cardiac Cath Report ---
Cardiac Cath Report Physician (s)/Casing Splitter (s) Physician HAMMAD PYLE MD Pre-Procedure Diagnosis Pre-Procedure Diagnosis: chest pain Post-Procedure Note Procedure Start Date: May 31, 2017 Procedure Start Time: 11:15 Name of Procedure: left heart catheterization, LV gram, abdominal aortogram, bilateral lower extreme. Runoff PTCA with 3 stents to the right coronary artery Findings/Procedure Note PROCEDURE NOTE: After explaining the procedure to the patient, all pros and cons were explained, all questions were answered. The patient signed the consent and then she was placed on the cardiac catheterization laboratory. The patient was placed on the cardiac catheterization laboratory. Groin was prepped SL fashion local anesthesia was used. Sheath placed in the artery. Glory right and left catheter were used to access the coronary system. Pigtail was used to access the left ventricular cavity. Left ventriculogram he was done Pigtail catheter was used to evaluate abdominal aortogram and the bifurcation Crossed over to the left side and a straight catheter was advanced to the left common femoral artery and runoff of the left lower except he was done Runoff to the right lower except he was done through the sheath down to the ankle Patient had total occlusion of the right coronary artery, given 5000 units of heparin, started on Integrilin after double bolus with a drip, as our guide was advanced to the right coronary artery, had total occlusion, had difficulty crossing the lesion I used 2.520 mm balloon for backup and advanced a wire part to distally with difficulties. Predilated with a with 2.5 balloon and then I used a total of 3 stents and Xience Alpine 2.538 followed by 2.533 followed by 2.512 expanded to 2.6 mm distally and 3.0 mm proximally. I used a noncompliant balloon 3.020 mm to dilated the proximal portion and the overlapping portion of the first 2 stents. Excellent results, long procedure and required large amount of contrast and radiation. At the end of the procedure sheath was removed and minx device deployed and hemostasis achieved FINDINGS: Hemodynamics LV 109/20 end-diastolic pressure of 24 Aorta 116/71 with mean of 89 ANATOMY: Left Main is free of obstructive disease Left Anterior Descending had mild disease giving collateral to the right Left Circumflex had mild disease nonobstructive disease nondominant artery Right Coronory Artery large dominant artery totally occluded proximally, complex intervention with 3 stents deployment as described above results with excellent results and no residual stenosis. LV Gram normal left ventricle size with normal contracted she has some ejection fraction 60 percent Aorta, abdominal aortogram was done showing atherosclerotic disease in the abdominal aorta and no dissection or aneurysm normal bifurcation. Mild disease in the common iliac arteries, done with 8 mL of contrast Left lower extremity runoff done with the straight catheter placed in the left common femoral artery, there is total occlusion at the mid SFA reconstructed with slow flow distally 2 vessel runoff proximally, single vessel down to the ankle, done with less than 8 mL of contrast Right lower extremity runoff done through the sheath with [id number] disease in the SFA, slow flow below the trifurcation down to the foot, done with 6 mL of contrast CONCLUSION: 1. Total occlusion of the right coronary artery large dominant artery successful complex intervention with multiple balloons and stents with excellent results, deployed 3 overlapping stents Xience Alpin3.2.5 38 followed by 2.533 then 2.512 mm down to the bifurcation, the stents were expanded proximally to 3.0 mm and distally to 2.6 mm, significant dilatation at the overlapping area 2. Mild to moderate disease in the rest of the carotid system 3. Normal left ventricular size and systolic function with elevated liver ventricular end-diastolic pressure estimated ejection fraction 60 percent 4. Atherosclerotic disease in the abdominal aorta 5. Total occlusion at the left SFA that require intervention at a later point slow flow below the lesion 6. Mild to moderate disease at the right SFA with slow flow below the trifurcation DISCUSSION AND RECOMMENDATION: patient will be treated aggressively, planning for intervention to the left lower extremity within a week with close monitoring to his renal function prior to any further intervention. Anesthesia Type: Conscious Sedation Estimated blood loss (mL): 30 ml Contrast Amount: 262 ml Total Radiation Dose: 2919 mGy Post-Procedure Diagnosis Post-operative diagnosis: Unstable angina PSVT Coronary artery disease Peripheral arterial disease HAMMAD PYLE MD May 31, 2017 12:47
[2017-05-31] MEDS: NS IV 1000 ML 1,000 ML IV SCH ×2 (14:03→23:40)
[2017-05-31] MEDS: inSUlin (REGULAR) HUMAN 1 UNIT/0.01 ML (CHARGE PER UNIT) SC SCH ×2 (14:13→22:04)
[2017-05-31] MEDS ORDERED: inSUlin DETERMIR 1 UNIT/0.01 ML (LEVEMIR) CHARGE PER UNIT SQ SCH (21:00)
[2017-05-31] MEDS ORDERED: GABAPENTIN 600 MG (NEURONTIN) TAB PO SCH (21:00)
[2017-05-31] MEDS ORDERED: SIMvastatin 20 MG (ZOCOR) TAB PO SCH (21:00)
[2017-05-31] MEDS ORDERED: NON-FORMULARY MEDICATION 1 EA EA (Metformin HCl (Metformin HCl ER) 1,000 MG) PO SCH (21:00)
[2017-06-01] VITALS (12 sets, daily range): BP systolic 127–149; BP diastolic 72–90
[2017-06-01] MEDS: DILTIAZEM DRIP 100 MG in SODIUM CHLORIDE (ADD-VANTAGE) 100 ML IV SCH (03:23)
--- NOTE | 2017-06-01 04:36 | History & Physicial (CHS) ---
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 Patient states these episodes have been happening for years, they usually self resolved and were very limited. They did not affect his daily functioning. In the past month, they have been happening more frequently, as much as several times per week. This past time lasted longer than any other. He began to have increasing chest tightness and shortness of breath, so he went to ER. The morning after admission, the patient also complained that his left foot was colder than his right. States he has been treated for diabetic peripheral neuropathy but the gabapentin didn't help. The foot is tender to touch or walk on, more so than the right. Exam Limitations: no limitations Date seen by provider: May 31, 2017 Time Seen by Provider: 10:00 Attending Physician Estrellita Pandya MD PCP patti,[facility] Asmita Zendejas MD Date of Admission May 31, 2017 at 7:28 am Home Medications Home Medications Reviewed patient Home Medication Reconciliation Form Allergies Coded Allergies: Penicillins (Verified Allergy, Unknown, 01/18/17) [id number] Hx Patient Social History Alcohol Use: Denies Use Recreational Drug Use: No Smoking Status: Current Everyday Smoker Type Used: Cigarettes 2nd Hand Smoke Exposure: Yes Recent Foreign Travel: No Contact w/other who traveled: No Recent Hopitalizations: No Recent Infectious Disease Expo: No Physical Abuse Screen: No Sexual Abuse: No Family Medical History Significant Family History: No Pertinent Family Hx Family History: Alzheimer's disease 19 MOTHER Diabetes mellitus 19 MOTHER FH: [place] (myocardial infarction) 19 FATHER ( at 48 ) FH: pancreatic cancer grandfather Hypercholesterolemia 19 MOTHER Hypertension 19 MOTHER Review of Systems (CHC) Constitutional: no symptoms reported All Other Systems Reviewed Negative Unless Noted: Yes (Negative excepted noted.) Reviewed Test Results Reviewed Test Results Lab Laboratory Tests Test 05/31/17 05:58 05/31/17 06:20 05/31/17 10:23 05/31/17 13:50 Range/Units White Blood Count 12.6 H 4.3-11.0 10^3/uL Red Blood Count 4.99 4.35-5.85 10^6/uL Hemoglobin 15.7 13.3-17.7 G/DL Hematocrit 47 40-54 % Mean Corpuscular Volume 93 80-99 FL Mean Corpuscular Hemoglobin 32 25-34 PG Mean Corpuscular Hemoglobin Concent 34 32-36 G/DL Red Cell Distribution Width 13.7 10.0-14.5 % Platelet Count 219 130-400 10^3/uL Mean Platelet Volume 9.8 7.4-10.4 FL Neutrophils (%) (Auto) 53 42-75 % Lymphocytes (%) (Auto) 38 12-44 % Monocytes (%) (Auto) 8 0-12 % Eosinophils (%) (Auto) 1 0-10 % Basophils (%) (Auto) 0 0-10 % Neutrophils # (Auto) 6.7 1.8-7.8 X 10^3 Lymphocytes # (Auto) 4.8 H 1.0-4.0 X 10^3 Monocytes # (Auto) 1.0 0.0-1.0 X 10^3 Eosinophils # (Auto) 0.2 0.0-0.3 10^3/uL Basophils # (Auto) 0.0 0.0-0.1 10^3/uL Prothrombin Time 12.1 L 12.2-14.7 SEC INR Comment 0.9 0.8-1.4 Activated Partial Thromboplast Time 35 24-35 SEC Sodium Level 139 135-145 MMOL/L Potassium Level 4.1 3.6-5.0 MMOL/L Chloride Level 111 H 98-107 MMOL/L Carbon Dioxide Level 17 L 21-32 MMOL/L Anion Gap 11 5-14 MMOL/L Blood Urea Nitrogen 12 7-18 MG/DL Creatinine 0.92 0.60-1.30 MG/DL Estimat Glomerular Filtration Rate > 60 BUN/Creatinine Ratio 13 Glucose Level 220 H 70-105 MG/DL Calcium Level 9.1 8.5-10.1 MG/DL Magnesium Level 2.0 1.8-2.4 MG/DL Total Bilirubin 0.3 0.1-1.0 MG/DL Aspartate Amino Transf (AST/SGOT) 16 5-34 U/L Alanine Aminotransferase (ALT/SGPT) 24 0-55 U/L Alkaline Phosphatase 73 40-136 U/L Myoglobin 35.5 10.0-92.0 NG/ML Troponin I < 0.30 < 0.30 <0.30 NG/ML Total Protein 6.9 6.4-8.2 GM/DL Albumin 3.9 3.2-4.5 GM/DL Thyroid Stimulating Hormone (TSH) 1.06 0.35-4.94 UIU/ML D-Dimer 0.28 0.00-0.49 UG/ML Glucometer 127 H 70-110 MG/DL Test 05/31/17 14:13 05/31/17 15:09 05/31/17 20:59 06/01/17 05:30 Range/Units Glucometer 63 L 91 158 H 70-110 MG/DL White Blood Count 10.9 4.3-11.0 10^3/uL Red Blood Count 4.70 4.35-5.85 10^6/uL Hemoglobin 14.5 13.3-17.7 G/DL Hematocrit 44 40-54 % Mean Corpuscular Volume 94 80-99 FL Mean Corpuscular Hemoglobin 31 25-34 PG Mean Corpuscular Hemoglobin Concent 33 32-36 G/DL Red Cell Distribution Width 13.9 10.0-14.5 % Platelet Count 216 130-400 10^3/uL Mean Platelet Volume 9.7 7.4-10.4 FL Neutrophils (%) (Auto) 61 42-75 % Lymphocytes (%) (Auto) 31 12-44 % Monocytes (%) (Auto) 7 0-12 % Eosinophils (%) (Auto) 1 0-10 % Basophils (%) (Auto) 0 0-10 % Neutrophils # (Auto) 6.6 1.8-7.8 X 10^3 Lymphocytes # (Auto) 3.4 1.0-4.0 X 10^3 Monocytes # (Auto) 0.8 0.0-1.0 X 10^3 Eosinophils # (Auto) 0.1 0.0-0.3 10^3/uL Basophils # (Auto) 0.0 0.0-0.1 10^3/uL Sodium Level 141 135-145 MMOL/L Potassium Level 3.8 3.6-5.0 MMOL/L Chloride Level 112 H 98-107 MMOL/L Carbon Dioxide Level 18 L 21-32 MMOL/L Anion Gap 11 5-14 MMOL/L Blood Urea Nitrogen 9 7-18 MG/DL Creatinine 0.77 0.60-1.30 MG/DL Estimat Glomerular Filtration Rate > 60 BUN/Creatinine Ratio 12 Glucose Level 104 70-105 MG/DL Calcium Level 8.6 8.5-10.1 MG/DL Phosphorus Level 2.8 2.3-4.7 MG/DL Magnesium Level 2.1 1.8-2.4 MG/DL Total Bilirubin 0.3 0.1-1.0 MG/DL Aspartate Amino Transf (AST/SGOT) 17 5-34 U/L Alanine Aminotransferase (ALT/SGPT) 21 0-55 U/L Alkaline Phosphatase 64 40-136 U/L Myoglobin 35.9 10.0-92.0 NG/ML Total Protein 6.4 6.4-8.2 GM/DL Albumin 3.6 3.2-4.5 GM/DL Triglycerides Level 675 H <150 MG/DL Cholesterol Level 168 < 200 MG/DL LDL Cholesterol Direct 64 1-129 MG/DL VLDL Cholesterol 135 H 5-40 MG/DL HDL Cholesterol 22 L 40-60 MG/DL Physical Exam-(CHC) Physical Exam Vital Signs VS - Last 72 Hours, by Label 05/31/17 05/31/17 05/31/17 05/31/17 05:51 05:59 06:32 07:47 Temp 97.5 97.5 Pulse 139 130 Resp 20 20 B/P (MAP) 121/90 109/86 Pulse Ox 98 97 99 O2 Delivery Room Air Nasal Cannula Nasal Cannula O2 Flow Rate 2.00 2.00 2.00 05/31/17 05/31/17 05/31/17 05/31/17 08:05 08:10 08:14 09:00 Temp 97.9 Pulse 74 77 80 78 Resp 16 13 13 B/P (MAP) 120/81 113/81 Pulse Ox 99 99 98 O2 Delivery Nasal Cannula Room Air Room Air 05/31/17 05/31/17 05/31/17 05/31/17 10:00 12:55 13:00 13:00 Temp 97.1 Pulse 87 76 75 73 Resp 14 11 10 B/P (MAP) 117/80 111/75 111/73 Pulse Ox 98 96 98 O2 Delivery Room Air Nasal Cannula Nasal Cannula O2 Flow Rate 2.00 2.00 05/31/17 05/31/17 05/31/17 05/31/17 13:15 13:30 13:45 14:00 Pulse 72 72 75 77 Resp 8 10 13 10 B/P (MAP) 107/72 117/75 113/73 120/70 Pulse Ox 98 98 99 100 O2 Delivery Nasal Cannula Nasal Cannula Nasal Cannula Nasal Cannula O2 Flow Rate 2.00 2.00 2.00 2.00 05/31/17 05/31/17 05/31/17 05/31/17 14:30 15:00 16:00 16:00 Temp 97.3 Pulse 86 83 77 Resp 16 15 13 B/P (MAP) 104/75 115/71 114/69 Pulse Ox 97 97 93 97 O2 Delivery Room Air Room Air Room Air Room Air 05/31/17 05/31/17 05/31/17 05/31/17 17:00 18:00 19:00 19:00 Pulse 83 79 78 78 Resp 12 17 22 B/P (MAP) 117/67 121/74 125/77 Pulse Ox 98 95 95 O2 Delivery Room Air Room Air Room Air 05/31/17 05/31/17 05/31/17 05/31/17 20:00 20:00 21:00 22:00 Pulse 85 81 71 Resp 20 9 10 B/P (MAP) 130/83 133/81 136/77 Pulse Ox 97 97 97 95 O2 Delivery Room Air Room Air Room Air Room Air 05/31/17 06/01/17 06/01/17 06/01/17 23:00 00:00 00:00 00:08 Temp 96.6 Pulse 73 72 Resp 9 13 B/P (MAP) 133/76 135/82 Pulse Ox 95 93 97 O2 Delivery Room Air Room Air Room Air 06/01/17 06/01/17 06/01/17 06/01/17 01:00 01:00 02:00 03:00 Pulse 71 71 74 76 Resp 16 17 19 B/P (MAP) 139/80 135/85 135/77 Pulse Ox 95 94 94 O2 Delivery Room Air Room Air Room Air 06/01/17 06/01/17 06/01/17 06/01/17 04:00 04:00 04:00 05:00 Temp 97.1 Pulse 77 69 Resp 21 16 B/P (MAP) 140/82 139/90 Pulse Ox 93 97 94 O2 Delivery Room Air Room Air Room Air 06/01/17 06/01/17 06/01/17 06/01/17 06:00 07:00 08:00 08:00 Temp 98.0 Pulse 70 80 Resp 21 B/P (MAP) 141/84 Pulse Ox 95 97 O2 Delivery Room Air Room Air Capillary Refill : Less Than 3 Seconds General Appearance: WD/WN, no apparent distress HEENT: PERRL/EOMI, normal ENT inspection, pharynx normal Neck: non-tender, full range of motion, supple, normal inspection Respiratory: chest non-tender, lungs clear, normal breath sounds, no respiratory distress, no accessory muscle use Cardiovascular: regular rate, rhythm, no edema, no gallop, no JVD, no murmur Gastrointestinal: normal bowel sounds, non tender, soft, no organomegaly Extremities: normal range of motion, non-tender, normal inspection, no pedal edema, no calf tenderness, slow capillary refill (on left; left DP nonpalpable) Neurologic/Psychiatric: greige goods marker II-XII nml as tested, no motor/sensory deficits, alert, normal mood/affect, oriented x 3 Skin: normal color, warm/dry, cool (left) Assessment/Plan Assessment/Plan Admission Dx SEE BELOW Plan SUPRAVENTRICULAR TACHYCARDIA - cardiology consulted - plan for cath today - has resolved on cardizem PAD - likely due to 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 and diabetes, HL, HTN - cath today - needs to modify risks with exercise - already on statin - needs anticoagulant - TBD by Dr Zendejas post cath DIABETES MELLITUS TYPE 2, CONTROLLED, 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
[2017-06-01 05:46] LABS: BASOPHILS % (AUTO) 0 % (0-10); EOSINOPHILS # (AUTO) 0.1 10^3/uL (0.0-0.3); EOSINOPHILS % (AUTO) 1 % (0-10); LYMPHOCYTES # (AUTO) 3.4 X 10^3 (1.0-4.0); LYMPHOCYTES % (AUTO) 31 % (12-44); MEAN CORPUSCULAR HEMOGLOBIN 31 PG (25-34); MEAN CORPUSCULAR HGB CONC 33 G/DL (32-36); MEAN CORPUSCULAR VOLUME 94 FL (80-99); MEAN PLATELET VOLUME 9.7 FL (7.4-10.4); MONOCYTES # (AUTO) 0.8 X 10^3 (0.0-1.0); MONOCYTES % (AUTO) 7 % (0-12); NEUTROPHILS # (AUTO) 6.6 X 10^3 (1.8-7.8); NEUTROPHILS % (AUTO) 61 % (42-75); PLATELET COUNT 216 10^3/uL (130-400); RED CELL DISTRIBUTION WIDTH 13.9 % (10.0-14.5); WHITE BLOOD COUNT 10.9 10^3/uL (4.3-11.0)
--- NOTE | 2017-06-01 06:02 | Diagnostic Imaging Report ---
EXAMINATION: Portable erect AP chest at 5:40 AM INDICATION: Dyspnea The heart size is borderline enlarged but stable when compared to 05/31/17. The mild right lower lobe atelectasis/infiltrate seen on the prior exam has diminished and there is only minimal, if any, residual density still present. Right upper lung and left lung are clear. There is no sign of a pleural effusion. The mediastinum is not widened. The osseous structures are intact. IMPRESSION: The appearance of the chest has improved since the prior exam as the right lung base does seem better aerated. There is only minimal, if any, residual atelectasis/infiltrate still present. The overall appearance of the chest is otherwise stable. Dictated by: Dictated on workstation # [id number]
[2017-06-01 06:10] LABS: ALANINE AMINOTRANSFERASE 21 U/L (0-55); ALBUMIN 3.6 GM/DL (3.2-4.5); ANION GAP 11 MMOL/L (5-14); ASPARTATE AMINO TRANSFERASE 17 U/L (5-34); BILIRUBIN,TOTAL 0.3 MG/DL (0.1-1.0); BLOOD UREA NITROGEN 9 MG/DL (7-18); BUN/CREATININE RATIO 12; CALCIUM 8.6 MG/DL (8.5-10.1); CARBON DIOXIDE 18 MMOL/L (21-32); CHLORIDE 112 MMOL/L (98-107); CHOLESTEROL 168 MG/DL (< 200); CREATININE SERUM 0.77 MG/DL (0.60-1.30); DIRECT LDL 64 MG/DL (1-129); GFR ESTIMATED > 60; GLUCOSE 104 MG/DL (70-105); MAGNESIUM 2.1 MG/DL (1.8-2.4); PHOSPHORUS 2.8 MG/DL (2.3-4.7); POTASSIUM 3.8 MMOL/L (3.6-5.0); SODIUM 141 MMOL/L (135-145); TOTAL PROTEIN 6.4 GM/DL (6.4-8.2); TRIGLYCERIDES 675 MG/DL (<150); VLDL CHOLESTEROL 135 MG/DL (5-40)
[2017-06-01 06:17] LABS: MYOGLOBIN SERUM 35.9 NG/ML (10.0-92.0)
[2017-06-01] MEDS: GABAPENTIN 600 MG (NEURONTIN) TAB PO SCH (06:20)
[2017-06-01] MEDS: MAGNESIUM 1 GM/100 ML IVPB 100 ML IV SCH (06:41)
[2017-06-01] MEDS: KCL 20 MEQ TAB (K-DUR) PO SCH (06:41)
[2017-06-01] MEDS: inSUlin (REGULAR) HUMAN 1 UNIT/0.01 ML (CHARGE PER UNIT) SC SCH (06:41)
[2017-06-01] MEDS: POTASSIUM CL 10MEQ/50ML IVPB 50 ML IV SCH (06:41)
[2017-06-01] MEDS ORDERED: ASPIRIN E.C. 325 MG (ECOTRIN) TABLET PO SCH (09:00)
[2017-06-01] MEDS ORDERED: ASPIRIN E.C. 81 MG (ECOTRIN) TAB PO SCH (09:00)
[2017-06-01] MEDS ORDERED: CLOPIDOGREL 75 MG (PLAVIX) TABLET PO SCH (09:00)
[2017-06-01] MEDS: NS IV 1000 ML 1,000 ML IV SCH (09:08)
[2017-06-01] MEDS: inSUlin DETERMIR 1 UNIT/0.01 ML (LEVEMIR) CHARGE PER UNIT SQ SCH (09:14)
[2017-06-01] MEDS: PANTOPRAZOLE 20 MG TABLET (PROTONIX) PO SCH (09:15)
[2017-06-01] MEDS: lisINopril 10 MG (PRINIVIL) TAB PO SCH (09:15)
[2017-06-01] MEDS: PREGABALIN 50 MG (LYRICA) CAP PO SCH (09:15)
[2017-06-01] MEDS ORDERED: CLOP75TA28 PO (11:03)
[2017-06-01] MEDS ORDERED: ASPI-983 PO (11:03)
--- NOTE | 2017-06-01 11:04 | Discharge Inst-Post CATH ---
Discharge Inst-CATH Post Cardiac Cath D/C Inst Follow Up/Plan Hold metformin for [address] Zendejas's office on Saturday, June 03, 2017 at 9 a.m. CARDIAC CATH DISCHARGE INSTRUCTIONS *Hold Metformin for 48 hours post heart cath. ACTIVITY * Go Home directly and rest. * Limit activity of the leg (or wrist if it was used) for 7 days including aerobics, swimming, jogging, bicycling, etc. * Restrict stair-climbing for 7 days if possible, if not, climb up with your non -cath leg, then bring together on the same step. * Avoid lifting, pushing, pulling or excessive movement of the affected extremity for 7 days. * Customary sexual activity may be resumed after 2 days-use caution not to use a position that strains or causes pain to the affected extremity. * No driving for 24 hours. * NO SMOKING. * Avoid straining for bowel movements for 7 days. * Gentle walking on level ground is allowed. * Returning to work will depend on the type of procedure and the results. Your doctor will discuss this with you. CALL YOUR DOCTOR FOR ANY OF THE FOLLOWING: *If bleeding from the puncture site occurs- Apply gentle pressure to site with clean cloth and call your doctor or EMS. * If a knot or lump forms under the skin, increases in size, or causes pain. * If bruising appears to be worsening or moving further down your leg instead of disappearing. * Temperature above 101 F. CARE OF YOUR GROIN INCISION; * Bruising or purple discoloration of the skin near the puncture site is common. * You may shower only, no bathtub bathing for 5 days. Be careful to avoid slipping as your leg may feel stiff. * If a closure device was used on your femoral artery, please see the attached guide regarding care of the device and your leg. * REMOVE the dressing from your groin the next day after your procedure in the shower. CARE OF YOUR WRIST INCISION; * Bruising or purple discoloration of the skin near the puncture site is common. * You may shower. * DO NOT submerge wrist. * Remove dressing in 24 hours. HAMMAD ZENDEJAS MD Jun 01, 2017 11:04
--- NOTE | 2017-06-01 11:09 | Cardiology Discharge Summary ---
Diagnosis/Chief Complaint Date of Admission May 31, 2017 at 07:28 Date of Discharge June 01, 2017 Admission Diagnosis Chest pain resembling angina Supraventricular tachycardia Claudication Peripheral artery L disease Hypertension Hyperlipidemia Discharge Diagnosis chest pain nonspecific etiology Coronary artery disease Claudication Peripheral arterial disease Supraventricular tachycardia Chief Complaint/HPI Chief Complaint/HPI 51 years old gentleman with history of diabetes mellitus, hypertension, hyperlipidemia and tobaccoism, has been having recurrent episodes of palpitation and chest pain for the last month, reporting episodes feeling heart rate racing associated with tightness in the upper side of his chest radiating to the back lasting for few hours and resolving spontaneously. Last night had an episode of palpitation that persisted associated with tightness all over his chest radiating to the back. Came into the emergency room and was noted to be in supraventricular tachycardia, heart rate has improved after Cardizem drip, return to sinus rhythm. Currently feeling somewhat better. Has been complaining off left leg cramps and pain feeling hot and cold in his leg then it becomes congested, has been having cramps in his legs. Noted to have diminished pulse in the left leg compared to the right which is also diminished. Patient underwent cardiac catheterization with 3 stents to appointment to the right coronary artery with excellent results. Has total occlusion of the mid left SFA which will be addressed at the later point Discharge Summary Hospital Course Hospital Course Chest pain resembling angina, probably secondary to tachycardia, cardiac catheterization was done showing total occlusion of the right coronary artery, 3 stents to the RCA with excellent results Coronary artery disease and severe peripheral arterial disease, cardiac catheterization was done on May 31, 2017 showing 1. Total occlusion of the right coronary artery large dominant artery successful complex intervention with multiple balloons and stents with excellent results, deployed 3 overlapping stents Xience Alpin3.2.5 38 followed by 2.533 then 2.512 mm down to the bifurcation, the stents were expanded proximally to 3.0 mm and distally to 2.6 mm, significant dilatation at the overlapping area 2. Mild to moderate disease in the rest of the carotid system 3. Normal left ventricular size and systolic function with elevated liver ventricular end-diastolic pressure estimated ejection fraction 60 percent 4. Atherosclerotic disease in the abdominal aorta 5. Total occlusion at the left SFA that require intervention at a later point slow flow below the lesion 6. Mild to moderate disease at the right SFA with slow flow below the trifurcation Claudication, diminished pulses in the lower extremity with significant symptoms on the left lower extremities, total occlusion of the left SFA which will be addressed at a later point Palpitation, secondary to tachycardia, improved. Supraventricular tachycardia, most for bleeding reentry tachycardia that responded to calcium channel blockers. I will start on beta blockers and monitor Hypertension, monitor blood pressure as an outpatient Hyperlipidemia, restart simvastatin and monitor, add Fish oil Diabetes mellitus, followed and managed by primary care physician Lynette, educated on smoking cessation Strong family history of heart disease with father in his 40s with myocardial infarction Obesity, BMI 33, educated on weight loss Significant hypoxemia at night, most probably patient has underlying sleep apnea need to be evaluated as an outpatient Labs Laboratory Tests 05/31/17 05:58: White Blood Count 12.6H, Lymphocytes # (Auto) 4.8H, Prothrombin Time 12.1L, Chloride Level 111H, Carbon Dioxide Level 17L, Glucose Level 220H 05/31/17 06:20: 05/31/17 10:23: Glucometer 127H 05/31/17 13:50: 05/31/17 14:13: Glucometer 63L 05/31/17 15:09: 05/31/17 20:59: Glucometer 158H 06/01/17 05:30: Chloride Level 112H, Carbon Dioxide Level 18L, Triglycerides Level 675H, VLDL Cholesterol 135H, HDL Cholesterol 22L Procedures None. Discharge Physical Examination Allergies: Coded Allergies: Penicillins (Verified Allergy, Unknown, 01/18/17) Vitals & I&Os Vital Signs Date Time Temp Pulse Resp B/P (MAP) Pulse Ox O2 Delivery O2 Flow Rate FiO2 06/01/17 08:00 98.0 06/01/17 07:00 80 06/01/17 06:00 21 141/84 95 Room Air 05/31/17 14:00 2.00 General Appearance: Alert, Oriented X3, Cooperative, No Acute Distress HEENT: Atraumatic, PERRLA Respiratory: Clear to Auscultation, Normal Air Movement Cardiovascular: Regular Rate, Normal S1, Normal S2, No Murmurs Abdominal: Normal Bowel Sounds, Soft, No Tenderness, No Hepatosplenomegaly, No Masses Extremities: No Clubbing, No Cyanosis, No Edema, Normal Pulses, No Tenderness/ Swelling Skin: No Rashes, No Breakdown, No Significant Lesion Neuro: Normal Gait, Normal Speech, Strength at 5/5 X4 Ext, Normal Tone, Sensation Intact, Cranial Nerves 3-12 NL, Reflexes 2+ Psych/Mental Status: Mental Status NL, Mood NL Discharge Home Medications Reviewed and agree with Discharge Medication list on patient's Discharge Instruction sheet Instructions to Patient/Family Please see electonic discharge instructions given to patient. Clinical Quality Measures AMI/AHF: ASA po Prior to arrival: No DVT/VTE Risk/Contraindication: Risk Factor Score Per Nursin RFS Level Per Nursing on Admit: 3=High HAMMAD PYLE MD Jun 01, 2017 11:09
== END 2017-06-01 14:15 | disposition home or self-care (01) | DRG 247 ==
LOC: EDUNIT# 05:44 → ER 05:48 → ICU 07:28 → ENPENDDIS 06-01 12:00
PROVIDERS: ADMIT Pediatrics; ATTEND Pediatrics
PROC: 027036Z Dilation of Coronary Artery, One Artery with Three Drug-eluting Intraluminal Devices, Percutaneous Approach (ICD-10-PCS; principal; 2017-05-31)
PROC: 4A023N7 Measurement of Cardiac Sampling and Pressure, Left Heart, Percutaneous Approach (ICD-10-PCS; 2017-05-31)
PROC: B2151ZZ Fluoroscopy of Left Heart using Low Osmolar Contrast (ICD-10-PCS; 2017-05-31)
PROC: B2111ZZ Fluoroscopy of Multiple Coronary Arteries using Low Osmolar Contrast (ICD-10-PCS; 2017-05-31)
PROC: B31P1ZZ Fluoroscopy of Thoraco-Abdominal Aorta using Low Osmolar Contrast (ICD-10-PCS; 2017-05-31)
DX: I25.110 Atherosclerotic heart disease of native coronary artery with unstable angina pectoris (principal); I47.1 Supraventricular tachycardia; I70.0 Atherosclerosis of aorta; I70.213 Atherosclerosis of native arteries of extremities with intermittent claudication, bilateral legs; I10 Essential (primary) hypertension; E78.5 Hyperlipidemia, unspecified; E11.43 Type 2 diabetes mellitus with diabetic autonomic (poly)neuropathy; E11.51 Type 2 diabetes mellitus with diabetic peripheral angiopathy without gangrene; F17.210 Nicotine dependence, cigarettes, uncomplicated; K21.9 Gastro-esophageal reflux disease without esophagitis; E66.9 Obesity, unspecified; Z68.33 Body mass index [BMI] 33.0-33.9, adult; Z79.4 Long term (current) use of insulin; Z82.49 Family history of ischemic heart disease and other diseases of the circulatory system
CPT/HCPCS: 36415; 71010; 80053; 80061; 82962; 83735; 83874; 84100; 84443; 84484; 85025; 85027; 85379; 85610; 85730; 87081; 93041

== ENCOUNTER 2017-06-04 06:50 | Day surgery (SDC) | payer OTHER ==
[2017-06-04] VITALS (10 sets, daily range): BP systolic 120–138; BP diastolic 79–89
[~2017-06-04] VITALS: Ht 167.6 cm; Wt 88.9 kg
[~2017-06-04 06:50] MED LIST changes: +ACET-2267 PO; +ASPI-983 PO; +CLOP75TA28 PO; +METF-478 PO; +leg cramp PO
[2017-06-04] MEDS ORDERED: NS IV 1000 ML 1,000 ML ONE ×2 (06:54→13:34)
[2017-06-04] MEDS ORDERED: HEParin (CATH LAB) 2,000 ML IV ONE (06:54)
[2017-06-04] MEDS ORDERED: NS IV 1000 ML 1,000 ML IV SCH (07:06)
[2017-06-04 07:51] LABS: MEAN PLATELET VOLUME 9.9 FL (7.4-10.4); RED BLOOD COUNT 5.17 10^6/uL (4.35-5.85); WHITE BLOOD COUNT 11.7 10^3/uL (4.3-11.0)
[2017-06-04] MEDS ORDERED: METF-479 PO (07:54)
[2017-06-04] MEDS ORDERED: METO-387 PO (07:54)
[2017-06-04 08:01] LABS: INR 0.9 (0.8-1.4); PROTHROMBIN TIME PATIENT 12.7 SEC (12.2-14.7)
[2017-06-04 08:08] LABS: ALANINE AMINOTRANSFERASE 22 U/L (0-55); ALBUMIN 4.2 GM/DL (3.2-4.5); ANION GAP 10 MMOL/L (5-14); ASPARTATE AMINO TRANSFERASE 18 U/L (5-34); BILIRUBIN,TOTAL 0.6 MG/DL (0.1-1.0); BLOOD UREA NITROGEN 16 MG/DL (7-18); BUN/CREATININE RATIO 18; CALCIUM 9.6 MG/DL (8.5-10.1); CARBON DIOXIDE 21 MMOL/L (21-32); CHLORIDE 107 MMOL/L (98-107); CREATININE SERUM 0.91 MG/DL (0.60-1.30); GFR ESTIMATED > 60; GLUCOSE 171 MG/DL (70-105); POTASSIUM 3.8 MMOL/L (3.6-5.0); SODIUM 138 MMOL/L (135-145); TOTAL PROTEIN 7.2 GM/DL (6.4-8.2)
[2017-06-04 12:26] LABS: BILIRUBIN,URINE NEGATIVE (NEGATIVE); KETONES,URINE NEGATIVE (NEGATIVE); LEUKOCYTE ESTERASE ,URINE 1+ (NEGATIVE); NITRITE,URINE NEGATIVE (NEGATIVE); PH,URINE 5 (5-9); PROTEIN,URINE 2+ (NEGATIVE); UROBILINOGEN,URINE NORMAL (NORMAL)
[2017-06-04] MEDS ORDERED: MIDAZOLAM 5 MG/5 ML (VERSED) VIAL ONE (12:34)
[2017-06-04] MEDS ORDERED: fentaNYL INJECTION 100 MCG/2 ML AMP ONE ×2 (12:35→13:50)
--- NOTE | 2017-06-04 12:35 | Cardiac Procedure Note-CS/ASA ---
Pre-Procedure Note Pre-Op Procedure Note H&P Reviewed The H&P was reviewed, patient examined and no changes noted. Date H&P Reviewed: Jun 04, 2017 Time H&P Reviewed: 12:35 Conscious Sedation Pre-Proced Time Reviewed: 12:35 ASA Class: 3 Airway Mallampati Classification: (kletsel dehe wintun appropriate class) I. II. III, IV Lungs Heart ASA score ASA 1: a normal healthy patient ASA 2: a patient with a mild systemic disease (mid diabetes, controlled hypertension, obesity x ASA 3: a patient with a severe systemic disease that limits activity (angina , COPD, prior Myocardial infarction) ASA 4: a patient with an incapacitating disease that is a constant threat to life (CHF, renal failure) ASA 5: a moribund patient not expected to survive 24 hrs. (ruptured aneurysm) ASA 6: a declared brain patient whose organs are being harvested. For emergent operations, add the letter E after the classification Grade 3 Sedation Plan: Analgesia, Amnesia, Plan communicated to team members, Discussed options with patient/fam, Discussed risks with patient/fam Note The patient is an appropriate candidate to undergo the planned procedure, sedation, and anesthesia. The patient immediately re-assessed prior to indication. HAMMAD PYLE MD Jun 04, 2017 12:35 pm
[2017-06-04] MEDS ORDERED: HEParin 1000 UNIT/ML (10ML VIAL) FOR BOLUS ONE (12:36)
[2017-06-04 12:37] LABS: SQUAMOUS EPITHELIAL CELL,UR 0-2 /HPF
[2017-06-04] MEDS ORDERED: MIDAZOLAM 2 MG/2 ML (VERSED) VIAL ONE (13:59)
[2017-06-04] MEDS: NS IV 1000 ML 1,000 ML IV SCH (14:24)
[2017-06-04] MEDS ORDERED: PATIENT MAY USE OWN MEDS, ALL PO SCH (14:30)
--- NOTE | 2017-06-04 16:58 | CARDIAC CATHETERIZATION ---
DATE OF SERVICE: 06/04/2017 PROCEDURE PERFORMED: Peripheral angiogram. BRIEF HISTORY: The patient is a 51-year-old gentleman with coronary artery disease, had a complex intervention to the right coronary artery earlier this week, has been having claudication with pain and diminished pulse in his left lower extremity, known to have occluded SFA. I saw him in the office yesterday. He expressed that the pain is worse, numbness in his feet is worse. DOMENICA was significantly abnormal. I decided to proceed with percutaneous intervention. PROCEDURE NOTE: After explaining the procedure to the patient, all pros and cons were explained. Right groin was prepped in a sterile fashion. A 6-Russian sheath was placed in the right femoral artery. A RIM catheter was used to cross. I advanced a Storq wire all the way to the SFA. I was unable to advance the sheath. I exchanged the RIM into a straight catheter, placed in the SFA, then advanced the 7-Russian long sheath over the straight catheter down to the SFA. I was unable to cross the lesion with a Storq wire. Patient was given a 5000 units of heparin and then 2000 followed. Command wire was used to cross, which was successful. I advanced the mini catheter, parked it into the popliteal artery and removed the wire. Injection through the sheath showed good position. I exchanged the wire into Viber wire, and parked in the popliteal artery. I then used Diamondback atherectomy device, did two runs of 1.5 cm with good results. Then, I used Santo balloon 5.0 x 100, did two inflations, proximal and distal. Then, I used another Santo 6.0 x 150 with one inflation with good results. There was recoiling. I deployed a Supera stent 5.5 x 150 mm, then postdilated with the Santo 6.0 x 150 mm with excellent results. Runoff showed excellent result down to the ankle. The sheath was pulled to the right common femoral. Then, I advanced the pigtail catheter to the abdominal aorta and abdominal aortogram was then showing no complication. At the end of the procedure, sheath was exchanged into a short 7-Russian sheath. Then, a Mynx device deployed and no complication noted. CONCLUSION: 1. Total occlusion of the left SFA with successful atherectomy using Diamondback 1.5, then a balloon dilatation, then deployment of Supera stent 5.5 x 150 mm, postdilated with a 6.0 balloon with excellent results and excellent flow down to the foot. 2. Normal abdominal aorta and bifurcation with no significant abnormality. DISCUSSION AND RECOMMENDATION: I will continue monitoring at this time. Continue on aspirin and Plavix. Job ID: [id number] DocumentID: [id number] Dictated Date: 06/04/2017 14:32:23 Shade Hanger Date: 06/04/2017 16:16:27 Dictated By: HAMMAD PYLE MD MTDD
[2017-06-04] MEDS: lisINopril 10 MG (PRINIVIL) TAB PO SCH (17:11)
[2017-06-04] MEDS ORDERED: [UNRECOGNIZED DRUG - OTHER] PO SCH (21:00)
[2017-06-04] MEDS ORDERED: LANTUS 100 UNITS/ML VIAL SQ SCH (21:00)
[2017-06-04] MEDS ORDERED: SIMvastatin 20 MG (ZOCOR) TAB PO SCH (21:00)
[2017-06-04] MEDS ORDERED: GABAPENTIN 600 MG (NEURONTIN) TAB PO SCH (21:00)
[2017-06-04] MEDS ORDERED: CRAMP PO SCH (21:00)
[2017-06-04] MEDS ORDERED: PREGABALIN 50 MG (LYRICA) CAP PO SCH (21:00)
[2017-06-04] MEDS: PREGABALIN 50 MG (LYRICA) CAP PO SCH (21:38)
[2017-06-05] VITALS: BP 129/77
[2017-06-05] MEDS: NS IV 1000 ML 1,000 ML IV SCH (00:22)
[2017-06-05 04:00] VITALS: BP 125/75
[2017-06-05 04:50] LABS: MEAN PLATELET VOLUME 10.2 FL (7.4-10.4); RED BLOOD COUNT 4.96 10^6/uL (4.35-5.85); RED CELL DISTRIBUTION WIDTH 13.9 % (10.0-14.5); WHITE BLOOD COUNT 12.4 10^3/uL (4.3-11.0)
[2017-06-05 05:07] LABS: ANION GAP 12 MMOL/L (5-14); BLOOD UREA NITROGEN 15 MG/DL (7-18); BUN/CREATININE RATIO 16; CALCIUM 9.3 MG/DL (8.5-10.1); CARBON DIOXIDE 18 MMOL/L (21-32); CHLORIDE 106 MMOL/L (98-107); CREATININE SERUM 0.93 MG/DL (0.60-1.30); GFR ESTIMATED > 60; GLUCOSE 183 MG/DL (70-105); POTASSIUM 4.1 MMOL/L (3.6-5.0); SODIUM 136 MMOL/L (135-145)
[2017-06-05] MEDS ORDERED: GABAPENTIN 600 MG (NEURONTIN) TAB PO SCH (06:00)
[2017-06-05 08:00] VITALS: BP 130/82
--- NOTE | 2017-06-05 08:21 | Short Stay Summary ---
History of Present Illness History of Present Illness Reason for visit/HPI 51 years old gentleman with history of coronary artery disease, paroxysmal atrial tachycardia and peripheral arterial disease, admitted for elective intervention of the left lower extremities, having significant claudication and cold leg, underwent successful intervention with excellent results. This morning his groin is healing well. Pulses palpable. Still having some pain in his foot and numbness in his foot Date of Admission June 04, 2017 Date of Discharge June 05, 2017 Time Seen by Provider: 08:18 Attending Physician Hammad Zendejas MD Admitting Physician Mini Camargo DO Consult Allergies and Home Medications Allergies Coded Allergies: Penicillins (Verified Allergy, Unknown, 01/18/17) Home Medications Acetaminophen 500 Mg Tablet, 1,500 MG PO TID PRN for pain/GASPAR, (Reported) takes three 500 mg TID prn for pain or Headache Aspirin 81 Mg Tablet.dr, 81 MG PO DAILY, #100 Ref 4 Prescribed by: HAMMAD ZENDEJAS on 06/01/17 1103 Clopidogrel Bisulfate 75 Mg Tablet, 75 MG PO DAILY, #30 Ref 4 Prescribed by: HAMMAD ZENDEJAS on 06/01/17 1103 Gabapentin 600 Mg Tablet, 600 MG PO 0600,1200, (Reported) takes one tab at 06, 12 Gabapentin 600 Mg Tablet, 1,200 MG PO HS, (Reported) takes two 600 mg tabs at HS Insulin Glargine,Hum.rec.anlog 100 Unit/1 Ml Vial, 53 UNIT SQ DAILY, (Reported) Insulin Glargine,Hum.rec.anlog 100 Unit/1 Ml Vial, 34 UNIT SQ HS, (Reported) Lisinopril 10 Mg Tablet, 10 MG PO DAILY, (Reported) Metformin HCl 1,000 Mg Tab.er.24, 1,000 MG PO BID, (Reported) Metoprolol Succinate 25 Mg Tab.er.24h, 25 MG PO DAILY, (Reported) Pregabalin 50 Mg Capsule, 50 MG PO TID, (Reported) Simvastatin 20 Mg Tablet, 20 MG PO HS, (Reported) [leg cramp] , 1 TAB PO HS, (Reported) Past Chkppkg-Cdrdgk-Bqnxat Hx Patient Social History Smoking Status: Current Everyday Smoker Type Used: Cigarettes 2nd Hand Smoke Exposure: Yes Recent Foreign Travel: No Contact w/other who traveled: No Recent Hopitalizations: No Recent Infectious Disease Expo: No Seasonal Allergies Seasonal Allergies: Yes Surgeries HX Surgeries: Yes Surgeries: Appendectomy Respiratory Hx Respiratory Disorders: Yes Cardiovascular Hx Cardiovascular Disorders: Yes Cardiac Disorders: High Cholesterol, Hypertension Neurological Hx Neurological Disorders: Yes Neurological Disorders: Neuropathy Genitourinary Hx Genitourinary Disorders: No Gastrointestinal Hx Gastrointestinal Disorders: Yes (occasional difficulty swallowing) Gastrointestinal Disorders: Abdominal Hernia, Gastroesophageal Reflux, Hemorrhoids, Chronic Diarrhea Musculoskeletal Hx Musculoskeletal Disorders: No Musculoskeletal Disorders: Back Injury, Chronic Back Pain Endocrine Hx Endocrine Disorders: Yes Endocrine Disorders: Diabetes, Insulin dep HEENT HX ENT Disorders: No Loss of Vision: Denies Hearing Impairment: Denies Cancer Hx Cancer: No Psychosocial Hx Psychiatric Problems: No Behavioral Health Disorders: Depression Integumentary HX Skin/Integumentary Disorder: No Blood Transfusions Hx Blood Disorders: No Family Medical History Significant Family History: No Pertinent Family Hx Family Hx: Alzheimer's disease 19 MOTHER Diabetes mellitus 19 MOTHER FH: [place] (myocardial infarction) 19 FATHER ( at 48 ) FH: pancreatic cancer grandfather Hypercholesterolemia 19 MOTHER Hypertension 19 MOTHER Constitutional: see HPI EENTM: see HPI Respiratory: see HPI Cardiovascular: see HPI Gastrointestinal: see HPI Genitourinary: see HPI Musculoskeletal: see HPI Skin: see HPI Psychiatric/Neurological: No Symptoms Reported, See HPI Physical Exam Vital Signs Vital Sign - Last 12Hours 06/04/17 06/04/17 06/04/17 07:22 14:55 15:00 Temp 99.1 Pulse 99 Resp 20 B/P (MAP) 120/83 Pulse Ox 100 O2 Delivery Room Air Capillary Refill : Less Than 3 Seconds General Appearance: No Apparent Distress, WD/WN Eyes: Bilateral Eye Normal Inspection, Bilateral Eye PERRL, Bilateral Eye EOMI HEENT: PERRL/EOMI, TMs Normal, Normal ENT Inspection, Pharynx Normal Neck: Full Range of Motion, Normal Inspection, Non Tender, Supple, Carotid Bruit Respiratory: Chest Non Tender, Lungs Clear, Normal Breath Sounds, No Accessory Muscle Use, No Respiratory Distress Cardiovascular: Regular Rate, Rhythm, No Edema, No Gallop, No JVD, No Murmur, Normal Peripheral Pulses Gastrointestinal: Normal Bowel Sounds, No Organomegaly, No Pulsatile Mass, Non Tender, Soft Back: Normal Inspection, No CVA Tenderness, No Vertebral Tenderness Extremity: Normal Capillary Refill, Normal Inspection, Normal Range of Motion, Non Tender, No Calf Tenderness, No Pedal Edema Neurologic/Psychiatric: Alert, Oriented x3, No Motor/Sensory Deficits, Normal Mood/Affect Skin: Normal Color, Warm/Dry Lymphatic: No Adenopathy Short Stay Diagnosis Discharge Diagnosis-Short Stay Admission Diagnosis: peripheral arterial disease Coronary artery disease Claudication Hypertension Hyperlipidemia Final Discharge Diagnosis: peripheral arterial disease Coronary artery disease Claudication Hypertension Hyperlipidemia Conclusion Labs Laboratory Tests 06/04/17 21:24: Glucometer 223H 06/05/17 03:41: White Blood Count 12.4H, Red Blood Count 4.96, Hemoglobin 15.4, Hematocrit 47, Mean Corpuscular Volume 94, Mean Corpuscular Hemoglobin 31, Mean Corpuscular Hemoglobin Concent 33, Red Cell Distribution Width 13.9, Platelet Count 255, Mean Platelet Volume 10.2, Sodium Level 136, Potassium Level 4.1, Chloride Level 106, Carbon Dioxide Level 18L, Anion Gap 12, Blood Urea Nitrogen 15, Creatinine 0.93, Estimat Glomerular Filtration Rate > 60, BUN/Creatinine Ratio 16, Glucose Level 183H, Calcium Level 9.3 Conclusion/Plan Peripheral artery disease with claudication, total occlusion of the left SFA successful atherectomy then balloon angioplasty and stent deployment using Supera 5.5150 mm with excellent results. Pulses palpable in the left foot, having some numbness and pain, probably due to neuropathy. Groin is healing well Coronary artery disease status post complex intervention done last week with excellent results. Continue to monitor as an outpatient Hypertension, controlled continue to monitor Hyperlipidemia, continue on current medication Tobaccoism, educated in length on smoking cessation Claudication, educated on exercise, patient still having moderate disease on the right SFA which will be addressed at the later point if patient became symptomatic or DOMENICA and worse. Diabetes mellitus, followed and managed by primary care physician HAMMDA ZENDEJAS MD Jun 05, 2017 08:21
--- NOTE | 2017-06-05 08:22 | Discharge Inst-Post CATH ---
Discharge Inst-CATH Post Cardiac Cath D/C Inst Follow Up/Plan Hold Metformin for [address] Zendejas's office in 2-4 weeks CARDIAC CATH DISCHARGE INSTRUCTIONS *Hold Metformin for 48 hours post heart cath. ACTIVITY * Go Home directly and rest. * Limit activity of the leg (or wrist if it was used) for 7 days including aerobics, swimming, jogging, bicycling, etc. * Restrict stair-climbing for 7 days if possible, if not, climb up with your non -cath leg, then bring together on the same step. * Avoid lifting, pushing, pulling or excessive movement of the affected extremity for 7 days. * Customary sexual activity may be resumed after 2 days-use caution not to use a position that strains or causes pain to the affected extremity. * No driving for 24 hours. * NO SMOKING. * Avoid straining for bowel movements for 7 days. * Gentle walking on level ground is allowed. * Returning to work will depend on the type of procedure and the results. Your doctor will discuss this with you. CALL YOUR DOCTOR FOR ANY OF THE FOLLOWING: *If bleeding from the puncture site occurs- Apply gentle pressure to site with clean cloth and call your doctor or EMS. * If a knot or lump forms under the skin, increases in size, or causes pain. * If bruising appears to be worsening or moving further down your leg instead of disappearing. * Temperature above 101 F. CARE OF YOUR GROIN INCISION; * Bruising or purple discoloration of the skin near the puncture site is common. * You may shower only, no bathtub bathing for 5 days. Be careful to avoid slipping as your leg may feel stiff. * If a closure device was used on your femoral artery, please see the attached guide regarding care of the device and your leg. * REMOVE the dressing from your groin the next day after your procedure in the shower. CARE OF YOUR WRIST INCISION; * Bruising or purple discoloration of the skin near the puncture site is common. * You may shower. * DO NOT submerge wrist. * Remove dressing in 24 hours. HAMMAD ZENDEJAS MD Jun 05, 2017 08:22
[2017-06-05] MEDS: lisINopril 10 MG (PRINIVIL) TAB PO SCH (08:59)
[2017-06-05] MEDS ORDERED: LANTUS 100 UNITS/ML VIAL SQ SCH (09:00)
[2017-06-05] MEDS ORDERED: CLOPIDOGREL 75 MG (PLAVIX) TABLET PO SCH ×2 (09:00)
[2017-06-05] MEDS ORDERED: ASPIRIN E.C. 81 MG (ECOTRIN) TAB PO SCH (09:00)
[2017-06-05] MEDS ORDERED: INSULIN GLARGINE HUM REC ANLOG SQ SCH (09:00)
[2017-06-05] MEDS: PREGABALIN 50 MG (LYRICA) CAP PO SCH (09:11)
[2017-06-05 11:38] VITALS: BP 130/82
== END 2017-06-05 10:30 ==
LOC: CATH 06:50 → ICU 14:50 → CATH 06-05 10:30
PROVIDERS: ATTEND Internal Medicine Cardiovascular Disease
DX: I70.213 Atherosclerosis of native arteries of extremities with intermittent claudication, bilateral legs (principal); I25.10 Atherosclerotic heart disease of native coronary artery without angina pectoris; I70.92 Chronic total occlusion of artery of the extremities; I47.1 Supraventricular tachycardia; I10 Essential (primary) hypertension; E78.2 Mixed hyperlipidemia; I70.0 Atherosclerosis of aorta; E66.9 Obesity, unspecified; Z68.31 Body mass index [BMI] 31.0-31.9, adult; Z82.49 Family history of ischemic heart disease and other diseases of the circulatory system; Z79.4 Long term (current) use of insulin; Z72.0 Tobacco use; Z95.5 Presence of coronary angioplasty implant and graft; Z79.899 Other long term (current) drug therapy
CPT/HCPCS: 36415; 37227; 80048; 80053; 81000; 82962; 85027; 85347; 85610; 85730; 87081; 87088; 93005

== ENCOUNTER → 2017-07-30 | Outpatient (CLI) | payer OTHER ==
[~2017-07-30] MED LIST changes: +CATHETER FLUSH 10 ML SYR IV PRN; +METO-270 PO; +REGADENOSON 0.4 MG/5 ML SYR (LEXISCAN) IV ONE
[2017-07-30 13:58] VITALS: BP 144/78
[2017-07-30 14:09] VITALS: BP 136/71
[2017-07-30 14:12] VITALS: BP 139/75
--- NOTE | 2017-07-31 07:55 | STRESS TEST ---
DATE OF SERVICE: 07/30/2017 LEXISCAN MYOVIEW STRESS TEST REPORT Baseline heart rate is 91, baseline blood pressure 144/78. Baseline EKG sinus rhythm with no ischemic changes. In summary, the patient was scheduled for an exercise Myoview stress test started exercising with a baseline heart rate, blood pressure and EKG mentioned above was able to exercise for a total of 4 minutes 50 seconds on standard Alex protocol was unable to continue due to back pain, achieving submaximal heart rate which was 133, which is 78% of maximum expected heart rate. With peak exercise level EKG did not show any acute ischemic changes. Mild nondiagnostic changes were noted. The patient received 0.4 mg of Lexiscan followed by 29.2 mCi of technetium-99 Myoview. Throughout the test, there were no EKG changes. The resting and stress images were reviewed and compared in the short axis, horizontal long axis, and vertical long axis views. Review of the images showed diaphragmatic attenuation affecting the quality of the images. There is slight motion artifact, there is decreased uptake involving the whole inferolateral wall with mild reversibility SSS is 10, SDS 4, TID value 1.03. On the gated images, the left ventricle appeared to be prominent with hypokinesia of the inferior wall calculated ejection fraction 41%. CONCLUSION: 1. The patient was unable to exercise beyond 4 minutes and 30 seconds on standard Alex protocol. Test was terminated due to back pain and converted to Lexiscan. 2. The patient tolerated Lexiscan well. 3. Diaphragmatic attenuation with mild reversible ischemia involving the whole inferior wall and inferolateral wall. 4. Prominent left ventricle with hypokinesia at the inferior wall with calculated ejection fraction 41%. Job ID: [id number] DocumentID: [id number] Dictated Date: 07/30/2017 15:52:15 Conductor/Brakeman Date: 07/31/2017 01:10:03 Dictated By: HAMMAD PYLE MD
== END ==
LOC: CARD 12:01
PROVIDERS: ATTEND Internal Medicine Cardiovascular Disease
DX: I25.10 Atherosclerotic heart disease of native coronary artery without angina pectoris (principal); I73.9 Peripheral vascular disease, unspecified; I10 Essential (primary) hypertension; E78.2 Mixed hyperlipidemia
CPT/HCPCS: 78452; 93017

== ENCOUNTER 2017-08-06 10:38 | Day surgery (SDC) | payer OTHER ==
[~2017-08-06] VITALS: Ht 167.6 cm; Wt 88.9 kg
[2017-08-06] VITALS (10 sets, daily range): BP systolic 120–154; BP diastolic 56–86
[~2017-08-06 10:38] MED LIST changes: -CATHETER FLUSH 10 ML SYR IV PRN; -REGADENOSON 0.4 MG/5 ML SYR (LEXISCAN) IV ONE
--- OUTSIDE RECORDS SUMMARY | 2017-08-06 10:41 | XMS REPORT ---
Author Author FELECIA HOLLOWAY [facility] Address [address] [place] [address] Care Team Providers Care Data Sme Name Role Phone FELECIA HOLLOWAY Unavailable PROBLEMS Type Condition ICD9-CM Code [id number] Code Onset Dates Condition Status SNOMED Code Problem 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 75228334 Problem Abscess L02.91 Active 566792386 Problem Hydrocele, unspecified hydrocele type N43.3 Active 22670190 Problem Bloating R14.0 Active 415077697 Problem Hypercholesteremia E78.0 Active 55055130 Problem Enlarged testicle N50.89 Active 665451026 Problem Dyspepsia R10.13 Active 858256472 ALLERGIES Substance Reaction Event Type Date Status Penicillin V Potassium rash Drug Allergy Sep, Active SOCIAL HISTORY No smoking Hx information available PLAN OF CARE Activity Details Follow Up prn Reason:after us VITAL SIGNS Height 66.0 in 2016-10-02 Weight 178.2 lbs 2016-10-02 Temperature 97.5 degrees Fahrenheit 2016-10-02 Heart Rate 90 bpm 2016-10-02 Respiratory Rate 18 2016-10-02 BMI 28.76 kg/m2 2016-10-02 Blood pressure systolic 122 mmHg 2016-10-02 Blood pressure diastolic 70 mmHg 2016-10-02 MEDICATIONS Medication Instructions Dosage Frequency Start Date End Date Duration Status Omeprazole 20 mg Orally twice a day 1 capsules 12h Jul, Active Simvastatin 20 mg Orally Once a day 1 tablet in the evening 24h February, Active Lisinopril 10 mg Orally Once a day 1 tablet 24h Active Lantus 100 UNIT/ML Subcutaneous 2 times a day 40units am 30 pm 12h Mar Active BD Pen Needle Nancy U/F BD PEN NEEDLE NANCY subcutaneous 2 times a day as directed 12h February, Active Accu-Chek Britt Test Strips as directed 8h Jan, Active Accu-Chek Britt glucometer as directed Jan, Active MetFORMIN HCl ER 500 MG Orally twice a day 2 tablet with evening meal 12h 10 Jul, 2016 Active Gabapentin 600 MG Orally 3 times a day 1 capsule am noon 2 hs 8h Jan, Active RESULTS No Results PROCEDURES Procedure Date Ordered Related Diagnosis Body Site Office Visit, Est Pt., Level 3 Oct 02, 2016 IMMUNIZATIONS No Known Immunizations
--- OUTSIDE RECORDS SUMMARY | 2017-08-06 10:42 | XMS REPORT ---
Author Author FELECIA HOLLOWAY [facility] Address [address] [place] [address] Care Team Providers Care Searchlight Operator Name Role Phone FELECIA HOLLOWAY Unavailable PROBLEMS Type Condition ICD9-CM Code [id number] Code Onset Dates Condition Status SNOMED Code Problem Bloating R14.0 Active 920982500 Problem Enlarged testicle N50.89 Active 757266698 Problem Dyspepsia R10.13 Active 229835665 Problem 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 99314484 Problem Hypercholesteremia E78.0 Active 23228257 Problem Mixed hyperlipidemia E78.2 Active 208248738 Problem Chronic ischemic heart disease I25.9 Active 561224128 Problem Abscess L02.91 Active 210473298 Problem Hydrocele, unspecified hydrocele type N43.3 Active 79772569 Problem Hypertension, unspecified type I10 Active 72597615 Problem PAD (peripheral artery disease) I73.9 Active 299227354 ALLERGIES Substance Reaction Event Type Date Status Penicillin V Potassium rash Drug Allergy Dec, Active SOCIAL HISTORY Never Assessed PLAN OF CARE Activity Details Follow Up 3 Months Reason:dm VITAL SIGNS Height 66.0 in 2016-12-26 Weight 193.6 lbs 2016-12-26 Temperature 97.8 degrees Fahrenheit 2016-12-26 Heart Rate 90 bpm 2016-12-26 Respiratory Rate 18 2016-12-26 BMI 31.24 kg/m2 2016-12-26 Blood pressure systolic 120 mmHg 2016-12-26 Blood pressure diastolic 72 mmHg 2016-12-26 MEDICATIONS Medication Instructions Dosage Frequency Start Date End Date Duration Status Lisinopril 10 mg Orally Once a day 1 tablet 24h Active MetFORMIN HCl ER 500 mg Orally twice a day 2 tabs 12h Jul, Active Lyrica 50 mg Orally Three times a day 1 capsule 8h Oct, Active Omeprazole 20 mg Orally twice a day 1 capsules 12h Jul, Active Accu-Chek Britt glucometer as directed Jan, Active Gabapentin 600 MG Orally 3 times a day 1 capsule am, noon, 2 hs 8h Jan, 0 days Active BD Pen Needle Nancy U/F BD PEN NEEDLE NANCY subcutaneous 2 times a day as directed 12h February, Active Lantus 100 UNIT/ML Subcutaneous 2 times a day 50 units am 34 pm 12h 14 Mar Active Accu-Chek Britt Test Strips as directed 8h Jan, Active Simvastatin 20 mg Orally Once a day 1 tablet in the evening 24h February, Active RESULTS Name Result Date Reference Range TSH 2016-12-26 TSH 0.988 0.450-4.500 CBC 2016-12-26 WBC 14.1 3.4-10.8 RBC 5.40 4.14-5.80 Hemoglobin 17.1 12.6-17.7 Hematocrit 47.8 37.5-51.0 MCV 89 79-97 MCH 31.7 26.6-33.0 MCHC 35.8 31.5-35.7 RDW 13.6 12.3-15.4 Platelets 244 150-379 Neutrophils 65 Lymphs 25 Monocytes 8 Eos 1 Basos 0 Immature Cells Neutrophils (Absolute) 9.2 1.4-7.0 Lymphs (Absolute) 3.6 0.7-3.1 Monocytes(Absolute) 1.1 0.1-0.9 Eos (Absolute) 0.1 0.0-0.4 Baso (Absolute) 0.0 0.0-0.2 Immature Granulocytes 1 Immature Grans (Abs) 0.1 0.0-0.1 NRBC Hematology Comments: LIPID PANEL 2016-12-26 Cholesterol, Total 159 100-199 Triglycerides 311 0-149 HDL Cholesterol 27 >39 VLDL Cholesterol Roger 62 5-40 LDL Cholesterol Calc 70 0-99 Comment: CMP 2016-12-26 Glucose, Serum 193 65-99 BUN 14 6-24 Creatinine, Serum 0.94 0.76-1.27 eGFR If NonAfricn Am 94 >59 eGFR If Africn Am 109 >59 BUN/Creatinine Ratio 15 9-20 Sodium, Serum 136 134-144 Potassium, Serum 4.4 3.5-5.2 Chloride, Serum 105 96-106 Carbon Dioxide, Total 24 18-29 Calcium, Serum 9.5 8.7-10.2 Protein, Total, Serum 7.6 6.0-8.5 Albumin, Serum 4.6 3.5-5.5 Globulin, Total 3.0 1.5-4.5 A/G Ratio 1.5 1.1-2.5 Bilirubin, Total 0.3 0.0-1.2 Alkaline Phosphatase, S 82 39-117 AST (SGOT) 15 0-40 ALT (SGPT) 21 0-44 A1C (IN HOUSE) 2016-12-26 A1C IN HOUSE 8.3 4.3 - 5.6 % Previous A1c 8.5 Lot [id number] Exp date 10/06 MICROALBUMIN, URINE (IN HOUSE) 2016-12-26 MICROALBUMIN abnormal Lot # [id number] Exp date 09/05 Clarity clear Color yellow ALB 150 mg/L CRE 300 mg/dL A:C (IN HOUSE) 30-300 mg/g Control + Control Lot # Exp date PROCEDURES Procedure Date Ordered Result Body Site GLYCATED HEMOGLOBIN TEST December 26, 2016 VENIPUNCT, ROUTINE* December 26, 2016 MICROALBUMIN, SEMIQUANT December 26, 2016 COMPREHEN METABOLIC PANEL December 26, 2016 LIPID PANEL December 26, 2016 ASSAY THYROID STIM HORMONE December 26, 2016 COMPLETE CBC W/AUTO DIFF WBC December 26, 2016 IMMUNIZATIONS No Known Immunizations MEDICAL (GENERAL) HISTORY Type Description Date Medical History type II diabetes Medical History diabetic neuropathy Medical History hypertension Medical History hernia,inguinal Medical History hemorrhoids Medical History Peripheral Artery Disease Medical History Coronary artery disease Medical History Supraventricular tachycardia (episode on 05/31) Surgical History appendectomy 2009 Surgical History colonoscopy, benign 2010 Surgical History EGD 2010 Surgical History Heart cath, abdominal aortagram, PTCA w/ 3 stents to the right coronary artery by [facility] 05/31/17 Hospitalization History ER Visit for increased heart rate and elevated blood sugar 08/2015 Hospitalization History Had tooth extracted and became septic, was in hospital for several days. 1999 Hospitalization History [facility] discharge dx PAD,CAD, and SVT. Pt has f/u scheduled with 06/0205/31/2016
--- OUTSIDE RECORDS SUMMARY | 2017-08-06 10:42 | XMS REPORT ---
Author Author FELECIA HOLLOWAY [facility] Address [address] [place] [address] Care Team Providers Care Decorator Store Name Role Phone FELECIA HOLLOWAY Unavailable PROBLEMS Type Condition ICD9-CM Code [id number] Code Onset Dates Condition Status SNOMED Code Problem 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 81028744 Problem Bloating R14.0 Active 819441189 Problem Hypercholesteremia E78.0 Active 25466412 Problem PAD (peripheral artery disease) I73.9 Active 667118887 Problem Hypertension, unspecified type I10 Active 13372072 Problem Enlarged testicle N50.89 Active 492735974 Problem Dyspepsia R10.13 Active 865028109 Problem Abscess L02.91 Active 364699752 Problem Hydrocele, unspecified hydrocele type N43.3 Active 67435038 ALLERGIES Unknown Allergies SOCIAL HISTORY No smoking Hx information available PLAN OF CARE VITAL SIGNS MEDICATIONS Medication Instructions Dosage Frequency Start Date End Date Duration Status Gabapentin 600 MG Orally 3 times a day 1 capsule am, noon, 2 hs 8h Jan, 0 days Active RESULTS No Results PROCEDURES No Known procedures IMMUNIZATIONS No Known Immunizations
--- OUTSIDE RECORDS SUMMARY | 2017-08-06 10:43 | XMS REPORT ---
Author Author FELECIA HOLLOWAY [facility] Address [address] [place] [address] Care Team Providers Care Surgical Corsetier Name Role Phone FELECIA HOLLOWAY Unavailable PROBLEMS Type Condition ICD9-CM Code [id number] Code Onset Dates Condition Status SNOMED Code Problem 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 71748590 Problem Abscess L02.91 Active 327480276 Problem Hydrocele, unspecified hydrocele type N43.3 Active 25433809 Problem Bloating R14.0 Active 903241851 Problem Hypercholesteremia E78.0 Active 44068484 Problem Enlarged testicle N50.89 Active 792036148 Problem Dyspepsia R10.13 Active 317995979 ALLERGIES Substance Reaction Event Type Date Status Penicillin V Potassium rash Drug Allergy Oct, Active SOCIAL HISTORY No smoking Hx information available PLAN OF CARE Activity Details Follow Up 2 Months Reason:dm VITAL SIGNS Height 66.0 in 2016-10-21 Weight 185.4 lbs 2016-10-21 Temperature 98.1 degrees Fahrenheit 2016-10-21 Heart Rate 92 bpm 2016-10-21 Respiratory Rate 18 2016-10-21 BMI 29.92 kg/m2 2016-10-21 Blood pressure systolic 104 mmHg 2016-10-21 Blood pressure diastolic 58 mmHg 2016-10-21 MEDICATIONS Medication Instructions Dosage Frequency Start Date End Date Duration Status Lisinopril 10 mg Orally Once a day 1 tablet 24h Active Simvastatin 20 mg Orally Once a day 1 tablet in the evening 24h February, Active BD Pen Needle Nancy U/F BD PEN NEEDLE NANCY subcutaneous 2 times a day as directed 12h February, Active Omeprazole 20 mg Orally twice a day 1 capsules 12h Jul, Active Accu-Chek Britt glucometer as directed Jan, Active Cipro 500 MG Orally Twice a day 1 tablet 12h Oct, Oct, 14 days Active Gabapentin 600 MG Orally 3 times a day 1 capsule am noon 2 hs 8h Jan, Active Lyrica 50 mg Orally Three times a day 1 capsule 8h Oct, Active Accu-Chek Britt Test Strips as directed 8h Jan, Active MetFORMIN HCl ER 500 MG Orally twice a day 2 tablet with evening meal 12h Jul, Active Lantus 100 UNIT/ML Subcutaneous 2 times a day 45 units am 30 pm 12h Mar Active RESULTS No Results PROCEDURES Procedure Date Ordered Related Diagnosis Body Site Office Visit, Est Pt., Level 3 Oct 21, 2016 IMMUNIZATIONS No Known Immunizations
--- OUTSIDE RECORDS SUMMARY | 2017-08-06 10:43 | XMS REPORT ---
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 19513642 Problem Abscess L02.91 Active 055531419 Problem Hydrocele, unspecified hydrocele type N43.3 Active 24968151 Problem Bloating R14.0 Active 107958318 Problem Hypercholesteremia E78.0 Active 67274583 Problem Enlarged testicle N50.89 Active 598644000 Problem Dyspepsia R10.13 Active 312318226 ALLERGIES Unknown Allergies SOCIAL HISTORY No smoking Hx information available PLAN OF CARE VITAL SIGNS MEDICATIONS Medication Instructions Dosage Frequency Start Date End Date Duration Status MetFORMIN HCl ER 500 MG Orally twice a day 2 tablet with evening meal 12h Jul, Active Accu-Chek Britt Test Strips as directed 8h Jan, Active Simvastatin 20 mg Orally Once a day 1 tablet in the evening 24h February, Active RESULTS No Results PROCEDURES No Known procedures IMMUNIZATIONS No Known Immunizations
--- OUTSIDE RECORDS SUMMARY | 2017-08-06 10:43 | XMS REPORT ---
Author Author FELECIA HOLLOWAY [facility] Address [address] [place] [address] Care Team Providers Care Force Dispatcher Name Role Phone FELECIA HOLLOWAY Unavailable PROBLEMS Type Condition ICD9-CM Code [id number] Code Onset Dates Condition Status SNOMED Code Problem 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 46996381 Problem Abscess L02.91 Active 972175112 Problem Hydrocele, unspecified hydrocele type N43.3 Active 05509386 Problem Bloating R14.0 Active 561805218 Problem Hypercholesteremia E78.0 Active 36664226 Problem Enlarged testicle N50.89 Active 338874499 Problem Dyspepsia R10.13 Active 957831822 ALLERGIES Unknown Allergies SOCIAL HISTORY No smoking Hx information available PLAN OF CARE VITAL SIGNS MEDICATIONS Medication Instructions Dosage Frequency Start Date End Date Duration Status Gabapentin 600 MG Orally 3 times a day 1 capsule am, noon, 2 hs 8h Jan, 30 days Active RESULTS No Results PROCEDURES No Known procedures IMMUNIZATIONS No Known Immunizations
[2017-08-06] MEDS ORDERED: NS IV 1000 ML 1,000 ML ONE (10:49)
[2017-08-06] MEDS ORDERED: HEParin (CATH LAB) 2,000 ML IV ONE (10:49)
[2017-08-06] MEDS ORDERED: NS IV 1000 ML 1,000 ML IV SCH ×2 (10:59→12:56)
[2017-08-06 11:19] LABS: MEAN PLATELET VOLUME 9.6 FL (7.4-10.4); RED BLOOD COUNT 5.01 10^6/uL (4.35-5.85); RED CELL DISTRIBUTION WIDTH 13.6 % (10.0-14.5); WHITE BLOOD COUNT 11.1 10^3/uL (4.3-11.0)
--- NOTE | 2017-08-06 11:21 | Diagnostic Imaging Report ---
Portable upright radiograph of the chest. INDICATION: Chest pain. FINDINGS: The lungs are clear. The heart size is slightly prominent. No effusion or pneumothorax. The mediastinum and lina appear unremarkable. IMPRESSION: Unremarkable exam. Dictated by: Dictated on workstation # [id number]
[2017-08-06] MEDS ORDERED: PANT20TA2 PO (11:24)
[2017-08-06] MEDS ORDERED: ASPI-983 PO (11:24)
[2017-08-06] MEDS ORDERED: ROSU40TA PO (11:24)
[2017-08-06] MEDS ORDERED: INSU100I14 SQ (11:24)
[2017-08-06] MEDS ORDERED: CLOP75TA69 PO (11:24)
[2017-08-06] MEDS ORDERED: METF500T4 PO (11:24)
[2017-08-06 11:30] LABS: PROTHROMBIN TIME PATIENT 12.9 SEC (12.2-14.7)
[2017-08-06 11:42] LABS: ALANINE AMINOTRANSFERASE 17 U/L (0-55); ALBUMIN 4.3 GM/DL (3.2-4.5); ANION GAP 10 MMOL/L (5-14); ASPARTATE AMINO TRANSFERASE 20 U/L (5-34); BILIRUBIN,TOTAL 0.5 MG/DL (0.1-1.0); BLOOD UREA NITROGEN 12 MG/DL (7-18); BUN/CREATININE RATIO 15; CALCIUM 9.5 MG/DL (8.5-10.1); CARBON DIOXIDE 20 MMOL/L (21-32); CHLORIDE 107 MMOL/L (98-107); CREATININE SERUM 0.78 MG/DL (0.60-1.30); GFR ESTIMATED > 60; GLUCOSE 94 MG/DL (70-105); POTASSIUM 4.2 MMOL/L (3.6-5.0); SODIUM 137 MMOL/L (135-145); TOTAL PROTEIN 7.4 GM/DL (6.4-8.2)
[2017-08-06] MEDS ORDERED: INFLUENZA TRIvalent 2017-2018 0.5 ML/45 MCG SYR IM ONE (12:00)
[2017-08-06] MEDS ORDERED: fentaNYL INJECTION 100 MCG/2 ML AMP ONE (12:16)
[2017-08-06] MEDS ORDERED: MIDAZOLAM 5 MG/5 ML (VERSED) VIAL ONE (12:16)
--- NOTE | 2017-08-06 12:21 | Cardiac Procedure Note-CS/ASA ---
Pre-Procedure Note Pre-Op Procedure Note H&P Reviewed The H&P was reviewed, patient examined and no changes noted. Date H&P Reviewed: Aug 06, 2017 Time H&P Reviewed: 12:21 Conscious Sedation Pre-Proced Time Reviewed: 12:21 ASA Class: 3 Airway Mallampati Classification: (white earth appropriate class) I. II. III, IV Lungs Heart ASA score ASA 1: a normal healthy patient ASA 2: a patient with a mild systemic disease (mid diabetes, controlled hypertension, obesity x ASA 3: a patient with a severe systemic disease that limits activity (angina , COPD, prior Myocardial infarction) ASA 4: a patient with an incapacitating disease that is a constant threat to life (CHF, renal failure) ASA 5: a moribund patient not expected to survive 24 hrs. (ruptured aneurysm) ASA 6: a declared brain patient whose organs are being harvested. For emergent operations, add the letter E after the classification Grade 3 Sedation Plan: Analgesia, Amnesia, Plan communicated to team members, Discussed options with patient/fam, Discussed risks with patient/fam Note The patient is an appropriate candidate to undergo the planned procedure, sedation, and anesthesia. The patient immediately re-assessed prior to indication. HAMMAD PYLE MD Aug 06, 2017 12:21
--- NOTE | 2017-08-06 12:58 | Discharge Inst-Post CATH ---
Discharge Inst-CATH Post Cardiac Cath D/C Inst Follow Up/Plan Hold metformin for [address] Zendejas's office in 2-4 weeks CARDIAC CATH DISCHARGE INSTRUCTIONS *Hold Metformin for 48 hours post heart cath. ACTIVITY * Go Home directly and rest. * Limit activity of the leg (or wrist if it was used) for 7 days including aerobics, swimming, jogging, bicycling, etc. * Restrict stair-climbing for 7 days if possible, if not, climb up with your non -cath leg, then bring together on the same step. * Avoid lifting, pushing, pulling or excessive movement of the affected extremity for 7 days. * Customary sexual activity may be resumed after 2 days-use caution not to use a position that strains or causes pain to the affected extremity. * No driving for 24 hours. * NO SMOKING. * Avoid straining for bowel movements for 7 days. * Gentle walking on level ground is allowed. * Returning to work will depend on the type of procedure and the results. Your doctor will discuss this with you. CALL YOUR DOCTOR FOR ANY OF THE FOLLOWING: *If bleeding from the puncture site occurs- Apply gentle pressure to site with clean cloth and call your doctor or EMS. * If a knot or lump forms under the skin, increases in size, or causes pain. * If bruising appears to be worsening or moving further down your leg instead of disappearing. * Temperature above 101 F. CARE OF YOUR GROIN INCISION; * Bruising or purple discoloration of the skin near the puncture site is common. * You may shower only, no bathtub bathing for 5 days. Be careful to avoid slipping as your leg may feel stiff. * If a closure device was used on your femoral artery, please see the attached guide regarding care of the device and your leg. * REMOVE the dressing from your groin the next day after your procedure in the shower. CARE OF YOUR WRIST INCISION; * Bruising or purple discoloration of the skin near the puncture site is common. * You may shower. * DO NOT submerge wrist. * Remove dressing in 24 hours. HAMMAD ZENDEJAS MD Aug 06, 2017 12:58
[2017-08-06] MEDS ORDERED: PATIENT MAY USE OWN MEDS, ALL PO SCH (13:00)
--- NOTE | 2017-08-06 13:02 | Cardiac Cath Report ---
Cardiac Cath Report Physician (s)/Flute Teacher (s) Physician HAMMAD PYLE MD Pre-Procedure Diagnosis Pre-Procedure Diagnosis: chest pain, abnormal stress test, claudication Post-Procedure Note Procedure Start Date: Aug 06, 2017 Procedure Start Time: 12:58 Name of Procedure: coronary angiogram Bilateral lower action. First order Findings/Procedure Note PROCEDURE NOTE: After explaining the procedure to the patient, all pros and cons were explained, all questions were answered. The patient signed the consent and then she was placed on the cardiac catheterization laboratory. The patient was placed on the cardiac catheterization laboratory. Groin was prepped SL fashion local anesthesia was used. Sheath placed in the artery. Glory right and left catheter were used to access the coronary system. I was able to crossover with the Glory right to the left iliac artery, runoff to the left lower except he was done Runoff to the right lower extremities was done through the sheath At the end of the procedure the sheath was removed. Closure device was used FINDINGS: ANATOMY: Left Main is free of obstructive disease Left Anterior Descending has mild disease no significant obstructive disease Left Circumflex has mild disease at the midportion nonobstructive disease Right Coronory Artery his dominant artery with patent stents noted to have 3 stents in the body of the right, no significant obstructive disease distally Left lower extremity runoff showed mild disease, stent is patent in the mid SFA with good flow down below the trifurcation Right lower extremity runoff showed mild to moderate disease in the SFA, nonobstructive disease with excellent flow down to the foot CONCLUSION: 1. Patent 3 stents in the right coronary artery, mild disease in the distal right nonobstructive disease 2. Mild disease in the circumflex artery and LAD nonobstructive disease 3. Patent stent in the left SFA with good flow down to the foot 4. Mild to moderate disease in the right SFA with good flow down to the foot DISCUSSION AND RECOMMENDATION: continue medical therapy, avoid tobacco Anesthesia Type: Conscious Sedation Estimated blood loss (mL): 5 ml Contrast Amount: 30 ml Total Radiation Dose: 414 mGy Post-Procedure Diagnosis Post-operative diagnosis: Coronary artery disease Peripheral arterial disease Chest pain nonspecific etiology Claudication Hypertension HAMMAD PYLE MD Aug 06, 2017 13:02
== END 2017-08-06 17:30 | disposition home or self-care (01) ==
LOC: CATH 10:38 → SURG 13:13 → CATH 17:30
PROVIDERS: ATTEND Internal Medicine Cardiovascular Disease
DX: R07.89 Other chest pain (principal); I25.10 Atherosclerotic heart disease of native coronary artery without angina pectoris; I25.82 Chronic total occlusion of coronary artery; I70.92 Chronic total occlusion of artery of the extremities; I70.213 Atherosclerosis of native arteries of extremities with intermittent claudication, bilateral legs; E11.9 Type 2 diabetes mellitus without complications; E78.5 Hyperlipidemia, unspecified; I10 Essential (primary) hypertension; I47.1 Supraventricular tachycardia; E66.9 Obesity, unspecified; Z68.31 Body mass index [BMI] 31.0-31.9, adult; Z82.49 Family history of ischemic heart disease and other diseases of the circulatory system; Z70.0 Counseling related to sexual attitude; Z95.5 Presence of coronary angioplasty implant and graft; Z72.0 Tobacco use
CPT/HCPCS: 36245; 36415; 71010; 75716; 80053; 85027; 85610; 85730; 87081; 93458

== ENCOUNTER → 2018-01-14 | Outpatient (CLI) | payer OTHER ==
[~2018-01-14] MED LIST changes: +CLOP75TA69 PO; +INSU100I14 SQ; +METF500T4 PO; -METO-270 PO; +METO-387 PO; +PANT20TA2 PO; +ROSU40TA PO
--- NOTE | 2018-01-14 09:38 | Diagnostic Imaging Report ---
CLINICAL INDICATION: Patient with chronic low back pain with left leg pain especially walking very long. EXAM: MRI of the lumbar spine performed without IV contrast. Sequences include sagittal T2, sagittal T1, sagittal T2 fat-sat, and axial T2. COMPARISON: None. FINDINGS: Five lumbar type vertebra are identified. Lumbar spine has normal alignment with no acute fracture or dislocation. There is normal T1-T2 signal involving the vertebral bodies. The visualized portion of the distal thoracic spinal cord, conus medullaris, and cauda equina nerve roots are unremarkable. The conus medullaris tip is seen at the lower L1 vertebral body level. T11-T12: There is a mild diffuse disc bulge and mild loss of vertebral disc height and mild bilateral facet arthropathy. There is mild left neural foramen narrowing. There is no significant central canal or right neural foramen narrowing. T12-L1: There is no significant central spinal canal or neural foramen narrowing. L1-L2: There is mild bilateral facet arthropathy. There is mild bilateral neural foramen narrowing. L2-L3: There is a small broad posterior disc bulge and mild bilateral facet arthropathy. There is minimal impression upon the thecal sac. There is moderate bilateral neural foramen narrowing. L3-L4: There is a diffuse disc bulge with mild loss of vertebral disc height and moderate bilateral facet arthropathy with ligament flavum buckling. There is mild central canal narrowing. There is moderate bilateral neural foramen narrowing. L4-L5: There is moderate bilateral facet arthropathy. There is severe left neural foramen narrowing and moderate right neural foramen narrowing. There is no significant central canal narrowing. L5-S1: There is a small posterior disc bulge with annular tear. There is moderate bilateral neural foramen narrowing (right side more than the left). There is no significant central canal narrowing. IMPRESSION: 1: There is multilevel lumbar spine degenerative disc disease with no major central canal narrowing. 2: There is [id number] multilevel neural foramen narrowing. Dictated by: Dictated on workstation # [id number]
== END ==
LOC: RAD 08:00
PROVIDERS: ATTEND Pediatrics
DX: M48.04 Spinal stenosis, thoracic region (principal); M48.07 Spinal stenosis, lumbosacral region; M51.36 Other intervertebral disc degeneration, lumbar region; M51.34 Other intervertebral disc degeneration, thoracic region
CPT/HCPCS: 72148

== ENCOUNTER 2018-01-19 05:55 | Outpatient (CLI) | payer SELFPAY ==
[~2018-01-19] VITALS: Ht 167.6 cm; Wt 88.9 kg
== END 2018-01-19 12:12 ==
LOC: PREOP 05:55
PROVIDERS: ATTEND Surgery
DX: Z01.818 Encounter for other preprocedural examination (principal); K62.5 Hemorrhage of anus and rectum; Z86.010 Personal history of colon polyps

== ENCOUNTER 2018-01-21 11:13 | Day surgery (SDC) | payer OTHER ==
[~2018-01-21] VITALS: Ht 167.6 cm; Wt 88.9 kg
[2018-01-21] MEDS ORDERED: LACTATED RINGERS 1,000 ML IV STA (11:23)
[2018-01-21] MEDS ORDERED: LACTATED RINGERS 1,000 ML IV ONE (11:32)
[2018-01-21 11:52] VITALS: BP 134/85
[2018-01-21] MEDS ORDERED: PROPOFOL INJECTION 50 ML IV ONE ×2 (13:49→14:14)
[2018-01-21] MEDS ORDERED: MIDAZOLAM 2 MG/2 ML (VERSED) VIAL ONE (13:49)
--- NOTE | 2018-01-21 13:57 | Progress Note-Pre Operative ---
Pre-Operative Progress Note H&P Reviewed The H&P was reviewed, patient examined and no changes noted. Time Seen by Provider: 13:51 Date H&P Reviewed: Jan 21, 2018 Time H&P Reviewed: 13:54 Pre-Operative Diagnosis: Rectal bleed, hx of colon polyps PAMELA LOPEZ DO Jan 21, 2018 13:57
--- NOTE | 2018-01-21 14:36 | Progress Note-Post Operative ---
Post-Operative Progess Note Surgeon (s)/Segment Block Layer (s) Surgeon PAMELA LOPEZ DO Segment Block Layer: none Pre-Operative Diagnosis Rectal bleed, hx of colon polyps Post-Operative Diagnosis Colon Polyp Int Hemorrhoids Procedure & Operative Findings Date of Procedure 01/21/18 Procedure Performed/Findings colon with snare Anesthesia Type IV sedation by [employer] Estimated Blood Loss Estimated blood loss (mL): scant Specimens/Packing Specimens Removed ascending colon polyp PAMELA LOPEZ DO Jan 21, 2018 14:36
--- NOTE | 2018-01-21 14:37 | Endoscopy Discharge Instruct ---
Endo Procedure/Findings Findings 1.: Polyp 2.: Internal Hemorrhoids Discharge Instructions - Activity: You might feel a little sleepy until tomorrow. This is due to the medicine you received to relax you. Until tomorrow, you should: NOT drive a car, operate machinery or power tools. NOT drink any alcoholic beverages. NOT make any important decisions or sign importortant papers. Do not return to work until tomorrow, unless otherwise instructed. Resume previous activities tomorrow. Diet: Start by taking liquids. If you tolerate liquids, advance to solid food. Notify Physician - If you experience excessive bleeding, unusual abdominal pain, fever, or chest pain, contact your doctor immediately. Follow-Up: - I have received and understand the above instructions and will call my doctor if I have any further questions. Patient Signature Date Nurse Signature Other (Relationship) PAMELA LOPEZ DO Jan 21, 2018 14:37
--- NOTE | 2018-01-21 14:59 | Anesthesia-General Post-Op ---
MAC Patient Condition Mental Status/LOC: Same as Preop Cardiovascular: Satisfactory Nausea/Vomiting: Absent Respiratory: Satisfactory Pain: Controlled Complications: Absent Post Op Complications Complications None Follow Up Care/Instructions Patient Instructions None needed. Anesthesiology Discharge Order Discharge Order Patient is doing well, no complaints, stable vital signs, no apparent adverse anesthesia problems. No complications reported per nursing. SHUBHAM LOUIS CRNA Jan 21, 2018 14:59
[2018-01-21 15:00] VITALS: BP 133/66
[2018-01-21 15:30] VITALS: BP 125/78
[2018-01-21 15:35] VITALS: BP 125/78
--- NOTE | 2018-01-22 13:10 | OPERATIVE REPORT ---
DATE OF SERVICE: 01/21/2018 PREOPERATIVE DIAGNOSIS: Rectal bleed. POSTOPERATIVE DIAGNOSES: 1. Rectal bleed. 2. Colon polyps. 3. Internal hemorrhoids. PROCEDURE: Colonoscopy with snare polypectomy. SURGEON: Vamshi Reardon DO LOCATION ANALYST: None. ANESTHESIA: IV sedation. SPECIMEN: Ascending colon polyp. BLOOD LOSS: Scant. FLUIDS: Per anesthesia. POSTOPERATIVE CONDITION: Stable. INDICATION FOR PROCEDURE: The patient is a 52-year-old male who is having a little bit of rectal bleeding and needed a workup. FINDINGS: The patient had 2 polyps, 1 small one and 1 large one in the ascending colon. He also had some grade II internal hemorrhoids. It looked like they were bleeding a little bit. No other obvious pathology seen. PROCEDURE NOTE: After informed consent was obtained, the patient was brought to the endoscopy suite and placed in the bed in the left lateral decubitus position. He was administered IV sedation. During the case, he was administered the sedation by the MAIL MACHINE OPERATOR, who then monitored the vital signs the entire time, heart rate, blood pressure and pulse ox and the scope was then inserted, pushed all the way to about 150 cm, able to get all the way to cecum, took a picture of the appendiceal orifice and noted the ileocecal valve, then slowly withdrew the scope insufflating to look circumferentially at the fernandez looking at the cecum up the ascending colon. In the ascending colon, I saw a small polyp, did snare polypectomy and then continued up, saw another larger flat polyp, did a snare polypectomy, suctioned this up and then continued up the colon to the hepatic flexure, then down the transverse colon, the splenic flexure into the descending colon then down in the sigmoid and finally into the rectum, retroflexed in rectal vault, saw some grade II internal hemorrhoids, took a picture of this and then removed the scope. The patient tolerated the procedure and he was recovered in the endoscopy suite. Job ID: [id number] DocumentID: [id number] Dictated Date: 01/22/2018 12:13:23 Regional Forester Date: 01/22/2018 13:09:30 Dictated By: VAMSHI REARDON DO
== END 2018-01-21 15:35 | disposition home or self-care (01) ==
LOC: ENDO 11:13
PROVIDERS: ATTEND Surgery
DX: D12.2 Benign neoplasm of ascending colon (principal); K64.8 Other hemorrhoids; R79.1 Abnormal coagulation profile; I25.10 Atherosclerotic heart disease of native coronary artery without angina pectoris; E11.9 Type 2 diabetes mellitus without complications; E66.9 Obesity, unspecified; K40.90 Unilateral inguinal hernia, without obstruction or gangrene, not specified as recurrent; Z68.31 Body mass index [BMI] 31.0-31.9, adult; K21.9 Gastro-esophageal reflux disease without esophagitis; G47.33 Obstructive sleep apnea (adult) (pediatric); Z79.82 Long term (current) use of aspirin; Z79.01 Long term (current) use of anticoagulants; Z79.899 Other long term (current) drug therapy
CPT/HCPCS: 82962

== ENCOUNTER 2018-03-13 17:40 | Observation (INO) | payer OTHER ==
[~2018-03-13] VITALS: Ht 167.6 cm; Wt 81.8 kg
[~2018-03-13 17:40] MED LIST changes: +ADENOSINE 6 MG/2 ML (ADENOCARD) VIAL IV ONE; -METF500T4 PO; +METF500T5 PO; +NS IV 1000 ML 1,000 ML ONE
[2018-03-13] MEDS ORDERED: NS IV 1000 ML 1,000 ML IV SCH (17:45)
[2018-03-13] MEDS ORDERED: ADENOSINE 6 MG/2 ML (ADENOCARD) VIAL IV ONE ×2 (17:45)
[2018-03-13] MEDS ORDERED: ASPIRIN 81 MG CHEW (CHILDREN'S ASA) ONE (17:48)
[2018-03-13] MEDS ORDERED: ASPIRIN 81 MG CHEW (CHILDREN'S ASA) PO ONE (19:00)
[2018-03-13 19:06] LABS: BASOPHILS % (AUTO) 0 % (0-10); EOSINOPHILS # (AUTO) 0.1 10^3/uL (0.0-0.3); EOSINOPHILS % (AUTO) 0 % (0-10); HEMATOCRIT 48 % (40-54); HEMOGLOBIN 16.4 G/DL (13.3-17.7); LYMPHOCYTES # (AUTO) 4.4 X 10^3 (1.0-4.0); LYMPHOCYTES % (AUTO) 28 % (12-44); MEAN CORPUSCULAR HEMOGLOBIN 32 PG (25-34); MEAN CORPUSCULAR HGB CONC 34 G/DL (32-36); MEAN CORPUSCULAR VOLUME 94 FL (80-99); MONOCYTES # (AUTO) 1.5 X 10^3 (0.0-1.0); MONOCYTES % (AUTO) 9 % (0-12); NEUTROPHILS # (AUTO) 9.7 X 10^3 (1.8-7.8); NEUTROPHILS % (AUTO) 62 % (42-75); PLATELET COUNT 335 10^3/uL (130-400); RED BLOOD COUNT 5.13 10^6/uL (4.35-5.85); RED CELL DISTRIBUTION WIDTH 14.6 % (10.0-14.5); WHITE BLOOD COUNT 15.6 10^3/uL (4.3-11.0)
[2018-03-13] MEDS ORDERED: METF10002 PO (19:10)
[2018-03-13] MEDS ORDERED: CLIN300C11 PO (19:11)
[2018-03-13] MEDS ORDERED: LINA5TAB SC (19:15)
[2018-03-13 19:17] LABS: ALANINE AMINOTRANSFERASE 27 U/L (0-55); ALBUMIN 4.1 GM/DL (3.2-4.5); ALKALINE PHOSPHATASE 72 U/L (40-136); BILIRUBIN,TOTAL 0.6 MG/DL (0.1-1.0); BUN/CREATININE RATIO 15; CALCIUM 9.6 MG/DL (8.5-10.1); CARBON DIOXIDE 20 MMOL/L (21-32); CHLORIDE 109 MMOL/L (98-107); CREATININE SERUM 1.46 MG/DL (0.60-1.30); GFR ESTIMATED 51; GLUCOSE 223 MG/DL (70-105); MAGNESIUM 1.6 MG/DL (1.8-2.4); POTASSIUM 4.3 MMOL/L (3.6-5.0); SODIUM 140 MMOL/L (135-145)
[2018-03-13 19:24] LABS: MYOGLOBIN SERUM 98.7 NG/ML (10.0-92.0)
[2018-03-13 19:25] LABS: LYMPHOCYTES % (MANUAL) 21 %; MONOCYTES % (MANUAL) 9 %; NEUTROPHILS % (MANUAL) 70 %; RBC MORPH NORMAL
--- NOTE | 2018-03-13 19:40 | Diagnostic Imaging Report ---
INDICATION: Tachycardia. Chest pain and pressure Upright portable chest shows normal heart size and vascularity. The lungs are clear. There is no effusion or pneumothorax. IMPRESSION: Normal chest. There is no change from 08/06/2017. Dictated by: Dictated on workstation # [id number]
[2018-03-13 19:43] LABS: FIBRIN DEGRADATION PRODUCTS 0.34 UG/ML (0.00-0.49); INR 1.1 (0.8-1.4); PROTHROMBIN TIME PATIENT 14.2 SEC (12.2-14.7)
--- NOTE | 2018-03-13 20:00 | ED Cardiac General ---
History of Present Illness General Chief Complaint: Cardiac/General Problems Stated Complaint: SOA,DIZZY Nursing Triage Note: PT CO OF ELEVATED HR, LOW BLOOD PRESSURE, AND DIZZINESS SINCE AM, PT DIAPHORECTIC Source: patient Exam Limitations: no limitations History of Present Illness Date Seen by Provider: March 13, 2018 Time Seen by Provider: 18:30 Initial Comments to ER with reports of high heart rate low blood pressure and dizziness since this morning at about 03 100.he is diaphoretic upon arrival and reports chest tightness. He does have a history of tachycardia in the past. Also has a history of coronary stenting. Timing/Duration: other (12 hours) Severity: moderate Location: central Activities at Onset: none Prior CP/Workup: cardiac cath NTG SL APPLICATION DEVELOPMENT CONSULTANT: No ASA po APPLICATION DEVELOPMENT CONSULTANT: No Associated Systoms: Chest Pain Allergies and Home Medications Allergies Coded Allergies: Penicillins (Verified Allergy, Unknown, 01/19/18) Home Medications Clindamycin HCl 300 Mg Capsule, 300 MG PO TID, (Reported) Insulin Glargine,Hum.rec.anlog 100 Unit/1 Ml Vial, 35 UNIT SQ BID, (Reported) Linagliptin 5 Mg Tablet, 40 UNITS SC DAILY, (Reported) Lisinopril 10 Mg Tablet, 10 MG PO DAILY, (Reported) Metformin HCl 1,000 Mg Tablet, 1,000 MG PO BID, (Reported) Metoprolol Succinate 25 Mg Tab.er.24h, 25 MG PO DAILY, (Reported) Pantoprazole Sodium 20 Mg Tablet.dr, 20 MG PO DAILY, (Reported) Rosuvastatin Calcium 40 Mg Tablet, 40 MG PO DAILY, (Reported) Patient Home Medication List Home Medication List Reviewed: Yes Review of Systems Constitutional: see HPI EENTM: No Symptoms Reported Respiratory: No Symptoms Reported Cardiovascular: See HPI, Chest Pain Gastrointestinal: No Symptoms Reported Genitourinary: No Symptoms Reported Musculoskeletal: no symptoms reported Skin: no symptoms reported Psychiatric/Neurological: No Symptoms Reported Endocrine: No Symptoms Reported Hematologic/Lymphatic: No Symptoms Reported Past Vnmkoex-Ikgwcx-Ubngwt Hx Patient Social History Alcohol Use: Denies Use Recreational Drug Use: No Smoking Status: Current Everyday Smoker Type Used: Cigarettes 2nd Hand Smoke Exposure: Yes Recent Foreign Travel: No Contact w/Someone Who Travel: No Recent Infectious Disease Expo: No Recent Hopitalizations: No Physical Abuse: No Sexual Abuse: No Seasonal Allergies Seasonal Allergies: Yes Past Medical History Surgeries: Yes Appendectomy Respiratory: Yes Chronic Bronchitis, Sleep Apnea Currently Using CPAP: No Currently Using BIPAP: No Cardiac: Yes High Cholesterol, Hypertension, Peripheral Vascular Neurological: Yes Neuropathy Reproductive Disorders: No Sexually Transmitted Disease: No HIV/AIDS: No Genitourinary: No Gastrointestinal: Yes (occasional difficulty swallowing) Abdominal Hernia, Gastroesophageal Reflux, Hemorrhoids, Chronic Diarrhea Musculoskeletal: Yes Back Injury, Chronic Back Pain Endocrine: Yes Diabetes, Insulin dep HEENT: No (missing teeth) Loss of Vision: Bilateral Hearing Impairment: Denies Cancer: No Psychosocial: Yes Depression Nursing Suicide Risk Score: 0 Integumentary: No (MSRA right hand in January) Blood Disorders: No Adverse Reaction/Blood Tranf: No (N/A) Family Medical History Alzheimer's disease 19 MOTHER Diabetes mellitus 19 MOTHER FH: [place] (myocardial infarction) 19 FATHER ( at 48 ) FH: pancreatic cancer grandfather Hypercholesterolemia 19 MOTHER Hypertension 19 MOTHER No Pertinent Family Hx Physical Exam Vital Signs Vital Signs - First Documented 03/13/18 17:40 Temp 96.9 Pulse 162 Resp 20 B/P (MAP) 74/57 (63) Pulse Ox 99 O2 Delivery Nasal Cannula O2 Flow Rate 2.00 Capillary Refill : Less Than 3 Seconds General Appearance: No Apparent Distress, WD/WN, Other (on arrival to ER his heart rate [id number] neuro complex regular with a blood pressure of 70 systolic. He is alert and oriented and carrying on a conversation with us. ) HEENT: PERRL/EOMI, TMs Normal Neck: Full Range of Motion, Normal Inspection Respiratory: Normal Breath Sounds, No Accessory Muscle Use, No Respiratory Distress Cardiovascular: Normal Peripheral Pulses, Tachycardia Gastrointestinal: Non Tender Neurologic/Psychiatric: Alert, Oriented x3 Skin: Normal Color, Warm/Dry Progress/Results/Core Measures Results/Orders Lab Results Laboratory Tests Test 03/13/18 17:50 03/13/18 19:15 Range/Units White Blood Count 15.6 H 4.3-11.0 10^3/uL Red Blood Count 5.13 4.35-5.85 10^6/uL Hemoglobin 16.4 13.3-17.7 G/DL Hematocrit 48 40-54 % Mean Corpuscular Volume 94 80-99 FL Mean Corpuscular Hemoglobin 32 25-34 PG Mean Corpuscular Hemoglobin Concent 34 32-36 G/DL Red Cell Distribution Width 14.6 H 10.0-14.5 % Platelet Count 335 130-400 10^3/uL Mean Platelet Volume 10.0 7.4-10.4 FL Neutrophils (%) (Auto) 62 42-75 % Lymphocytes (%) (Auto) 28 12-44 % Monocytes (%) (Auto) 9 0-12 % Eosinophils (%) (Auto) 0 0-10 % Basophils (%) (Auto) 0 0-10 % Neutrophils # (Auto) 9.7 H 1.8-7.8 X 10^3 Lymphocytes # (Auto) 4.4 H 1.0-4.0 X 10^3 Monocytes # (Auto) 1.5 H 0.0-1.0 X 10^3 Eosinophils # (Auto) 0.1 0.0-0.3 10^3/uL Basophils # (Auto) 0.0 0.0-0.1 10^3/uL Neutrophils % (Manual) 70 % Lymphocytes % (Manual) 21 % Monocytes % (Manual) 9 % Blood Morphology Comment NORMAL Sodium Level 140 135-145 MMOL/L Potassium Level 4.3 3.6-5.0 MMOL/L Chloride Level 109 H 98-107 MMOL/L Carbon Dioxide Level 20 L 21-32 MMOL/L Anion Gap 11 5-14 MMOL/L Blood Urea Nitrogen 22 H 7-18 MG/DL Creatinine 1.46 H 0.60-1.30 MG/DL Estimat Glomerular Filtration Rate 51 BUN/Creatinine Ratio 15 Glucose Level 223 H 70-105 MG/DL Calcium Level 9.6 8.5-10.1 MG/DL Magnesium Level 1.6 L 1.8-2.4 MG/DL Total Bilirubin 0.6 0.1-1.0 MG/DL Aspartate Amino Transf (AST/SGOT) 19 5-34 U/L Alanine Aminotransferase (ALT/SGPT) 27 0-55 U/L Alkaline Phosphatase 72 40-136 U/L Myoglobin 98.7 H 10.0-92.0 NG/ML Troponin I < 0.30 <0.30 NG/ML B-Type Natriuretic Peptide 671.9 H <100.0 PG/ML Total Protein 7.0 6.4-8.2 GM/DL Albumin 4.1 3.2-4.5 GM/DL Prothrombin Time 14.2 12.2-14.7 SEC INR Comment 1.1 0.8-1.4 Activated Partial Thromboplast Time 33 24-35 SEC D-Dimer 0.34 0.00-0.49 UG/ML My Orders Orders - JARETH HENSON APRN Ns Iv 1000 Ml (Sodium Chloride 0.9%) (03/13/18 17:45) Adenosine Injection (Adenocard Injection (03/13/18 17:45) Adenosine Injection (Adenocard Injection (03/13/18 17:45) Adenosine Injection (Adenocard Injection (03/13/18 17:40) Ns Iv 1000 Ml (Sodium Chloride 0.9%) (03/13/18 17:40) Aspirin Chewable Tablet (Baby Aspirin Ch (03/13/18 17:48) Cbc With Automated Diff (03/13/18 19:00) Magnesium (03/13/18 19:00) Chest 1 View, Ap/Pa Only (03/13/18 19:00) Ekg Tracing (03/13/18 19:00) Cardiac Profile 1 (03/13/18 19:00) Comprehensive Metabolic Panel (03/13/18 19:00) Myoglobin Serum (03/13/18 19:00) Protime With Inr (03/13/18 19:00) Partial Thromboplastin Time (03/13/18 19:00) O2 (03/13/18 19:00) Monitor-Rhythm Ecg Trace Only (03/13/18 19:00) Lipid Panel (03/14/18 06:00) Aspirin Chewable Tablet (Baby Aspirin Ch (03/13/18 19:00) Saline Lock/Iv-Start (03/13/18 19:00) BNP (03/13/18 19:00) Fibrin Degradation Products (03/13/18 17:50) Manual Differential (03/13/18 17:50) Medications Given in ED Current Medications Medications Dose Ordered Sig/Marin Route Start Time Stop Time Status Last Admin Dose Admin Adenosine 6 mg ONCE ONCE IV 03/13/18 17:45 03/13/18 17:46 DC 03/13/18 17:56 6 MG Aspirin 81 mg STK-MED ONCE .ROUTE 03/13/18 17:48 03/13/18 17:54 DC 03/13/18 17:50 81 MG Vital Signs/I&O 03/13/18 03/13/18 17:40 17:40 Temp 96.9 Pulse 162 Resp 20 B/P (MAP) 74/57 (63) Pulse Ox 99 97 O2 Delivery Nasal Cannula O2 Flow Rate 2.00 Blood Pressure Mean: 63 Progress Progress Note : Progress Note 1749-he was converted nicely to sinus rhythm without ectopy after 1 dose of adenosine 6 mg IV. Blood pressure immediately increased and his chest tightness improved. Departure Communication (Admissions) Time/Spoke to Admitting Phy: 20:[address] Monsalve who agrees to admit observation, consult cardiology Time/Spoke to Consulting Phy: 20:[address] Funk on-call for cardiology. He agrees to consult. Like Tylenol for pain. Family Conversation 2019-patient's chest tightness with from 8 out of 10 to2 out of 10. The pain reduced significantly after conversion to normal sinus rhythm. He currently rates his pain at "bouncing around between 2 and 4 but that's every day for me" . He confirms this is no different than any other day for him. Impression Primary Impression: Supraventricular tachycardia Additional Impression: Acute renal insufficiency Disposition: ADMITTED INPATIENT Condition: Stable Admissions Decision to Admit Reason: Admit from ER (General) Decision to Admit/Date: March 13, 2018 Time/Decision to Admit Time: 20:00 Departure-Patient Inst. Referrals: ESTRELLITA PANDYA MD (PCP/Family) Primary Care Physician JARETH HENSON APRN March 13, 2018 20:00
[2018-03-13 21:40] VITALS: BP 108/70
[2018-03-13] MEDS ORDERED: ACETAMINOPHEN 325 MG TABLET/CAPLET (TYLENOL) PO PRN (21:45)
[2018-03-13] MEDS: NS IV 1000 ML 1,000 ML IV SCH (22:30)
[2018-03-14] VITALS: BP 126/79
[2018-03-14 04:00] VITALS: BP 132/81
[2018-03-14 04:05] LABS: BASOPHILS % (AUTO) 0 % (0-10); EOSINOPHILS # (AUTO) 0.1 10^3/uL (0.0-0.3); EOSINOPHILS % (AUTO) 1 % (0-10); HEMATOCRIT 41 % (40-54); HEMOGLOBIN 13.4 G/DL (13.3-17.7); LYMPHOCYTES # (AUTO) 3.4 X 10^3 (1.0-4.0); LYMPHOCYTES % (AUTO) 34 % (12-44); MEAN CORPUSCULAR HEMOGLOBIN 32 PG (25-34); MEAN CORPUSCULAR HGB CONC 33 G/DL (32-36); MEAN CORPUSCULAR VOLUME 96 FL (80-99); MEAN PLATELET VOLUME 9.5 FL (7.4-10.4); MONOCYTES # (AUTO) 0.8 X 10^3 (0.0-1.0); MONOCYTES % (AUTO) 8 % (0-12); NEUTROPHILS # (AUTO) 5.6 X 10^3 (1.8-7.8); NEUTROPHILS % (AUTO) 57 % (42-75); PLATELET COUNT 231 10^3/uL (130-400); RED BLOOD COUNT 4.23 10^6/uL (4.35-5.85); RED CELL DISTRIBUTION WIDTH 14.3 % (10.0-14.5); WHITE BLOOD COUNT 9.9 10^3/uL (4.3-11.0)
[2018-03-14 05:12] LABS: CHOLESTEROL 80 MG/DL (< 200); HDL CHOLESTEROL 19 MG/DL (40-60); TRIGLYCERIDES 382 MG/DL (<150); VLDL CHOLESTEROL 76 MG/DL (5-40)
[2018-03-14] MEDS: inSUlin ASPART (NovoLOG) 1 UNIT/0.01 ML (CHARGE PER UNIT) SC SCH ×2 (05:13→13:10)
[2018-03-14] MEDS: NS IV 1000 ML 1,000 ML IV SCH (07:33)
[2018-03-14 08:10] VITALS: BP 145/90
[2018-03-14] MEDS ORDERED: LEG CRAMP PO (09:00)
[2018-03-14] MEDS ORDERED: PANT40TA2 PO (09:00)
[2018-03-14] MEDS ORDERED: GABA600T2 PO (09:00)
[2018-03-14] MEDS ORDERED: ACET-2267 PO (09:00)
[2018-03-14] MEDS ORDERED: ASPI-586 PO (09:00)
[2018-03-14] MEDS ORDERED: PREG50CA2 PO (09:00)
[2018-03-14] MEDS ORDERED: CLOP75TA69 PO (09:00)
[2018-03-14] MEDS ORDERED: METF-479 PO (09:00)
[2018-03-14] MEDS ORDERED: LINA5TAB PO (09:01)
[2018-03-14 09:27] LABS: BUN/CREATININE RATIO 21; CALCIUM 8.1 MG/DL (8.5-10.1); CARBON DIOXIDE 19 MMOL/L (21-32); CHLORIDE 111 MMOL/L (98-107); CREATININE SERUM 0.91 MG/DL (0.60-1.30); GFR ESTIMATED > 60; GLUCOSE 240 MG/DL (70-105); POTASSIUM 4.1 MMOL/L (3.6-5.0); SODIUM 140 MMOL/L (135-145)
[2018-03-14 12:59] VITALS: BP 157/84
[2018-03-14] MEDS ORDERED: GABAPENTIN 600 MG (NEURONTIN) TAB PO SCH (13:00)
--- NOTE | 2018-03-14 13:54 | Consultation-Cardiology ---
HPI-Cardiology Cardiology Consultation: Date of Consultation 03/14/18 Time Seen by Provider: 13:35 Date of Admission Attending Physician Zoraida Monsalve MD Admitting Physician Carmen Sanchez MD Consulting Physician PRAKASH GOULD MD, MA, FACP, FACC, FSCAI, CCDS HPI: Chief Complaint: Palpitations and chest discomfort 52 yo man admitted through ER yesterday evening after he had presented with several hours of palp and chest discomfort. He was found to be in SVT and NSR was promptly restored with adenosine 6 mg iv in the ER. Symptoms resolved and have not recurred. No syncope or presyncope. No chest discomfort other than a pressure feeling at the time of palp. No shortness of breath or ankle swelling. Denies fever or chills Review of Systems-Cardiology Review of Systems Constitutional: malaise, tiredness; No weight loss, No weight gain Eyes: No vision change Ears/Nose/Throat: No ear discharge, No nasal drainage, No recent hearing loss Respiratory: As described under HPI Cardiovascular: As described under HPI Gastrointestinal: No constipation, No diarrhea, No nausea, No vomiting Genitourinary: No dysuria, No hematuria, No urine frequency changes Musculoskeletal: No back pain, No joint pain Skin: No rash, No ulcerations Psychiatric/Neurological: No seizure, No focal weakness, No syncope Hematologic: No bleeding abnormalities ROM-Naxgpl-Kjkmha Hx Patient Social History Alcohol Use: Denies Use Recreational Drug Use: No Smoking Status: Current Everyday Smoker Type Used: Cigarettes 2nd Hand Smoke Exposure: Yes Recent Foreign Travel: No Recent Infectious Disease Expo: No Hospitalization with Isolation: Denies Physical Abuse Screen: No Sexual Abuse: No Past Medical History PMH As described under Assessment. Family Medical History Family History: Alzheimer's disease 19 MOTHER Diabetes mellitus 19 MOTHER FH: [place] (myocardial infarction) 19 FATHER ( at 48 ) FH: pancreatic cancer grandfather Hypercholesterolemia 19 MOTHER Hypertension 19 MOTHER Allergies and Home Medications Allergies Coded Allergies: Penicillins (Verified Allergy, Unknown, 01/19/18) Home Medications Acetaminophen 500 Mg Tablet, 1,500-2,000 MG PO Q4H, (Reported) Aspirin 81 Mg Tablet.dr, 81 MG PO DAILY, (Reported) Clopidogrel Bisulfate 75 Mg Tablet, 75 MG PO DAILY, (Reported) Gabapentin 600 Mg Tablet, 600 MG PO TID, (Reported) Linagliptin 5 Mg Tablet, 5 MG PO DAILY, (Reported) Lisinopril 10 Mg Tablet, 10 MG PO DAILY, (Reported) Metformin HCl 1,000 Mg Tab.er.24, 1,000 MG PO BID, (Reported) Metoprolol Succinate 25 Mg Tab.er.24h, 25 MG PO HS, (Reported) Pantoprazole Sodium 40 Mg Tablet.dr, 40 MG PO DAILY, (Reported) Pregabalin 50 Mg Capsule, 50 MG PO BID, (Reported) Rosuvastatin Calcium 40 Mg Tablet, 40 MG PO DAILY, (Reported) [Leg Cramp] , 1 TAB PO HS, (Reported) Patient Home Medication List Home Medication List Reviewed: Yes Physical Exam-Cardiology Physical Exam Vital Signs/I&O 03/14/18 03/14/18 03/14/18 03/14/18 04:00 04:00 07:00 08:10 Temp 98.1 Pulse 88 86 Resp 16 B/P (MAP) 132/81 (98) Pulse Ox 98 98 97 O2 Delivery Room Air Room Air Room Air 03/14/18 03/14/18 03/14/18 03/14/18 08:10 12:59 12:59 13:00 Temp 97.4 97.4 Pulse 75 76 79 Resp 14 16 B/P (MAP) 145/90 (108) 157/84 (108) Pulse Ox 97 97 98 O2 Delivery Room Air Room Air Room Air 03/14/18 00:00 Intake Total 1000 ml Balance 1000 ml Capillary Refill : Less Than 3 Seconds Constitutional: AAO x 3, well-developed, well-nourished HEENT: EOMI, hearing is well preserved; No xanthelasmas are seen Neck: No carotid bruit; carotid pulses are 2 + bilaterally, with good upstrokes Respiratory: No accessory muscle use; other (Fair bilat air entry, no wheezes, resonance to percussion) Cardiovascular: regular rate-rhythm, S1 and S2, systolic murmur (faint LOVE at card base) Gastrointestinal: No tender; soft; No guarding, No rebound; audible bowel sounds Extremities: No clubbing, No cyanosis, No significant edema Neurologic/Psychiatric: oriented x 3, grossly intact, power is 5/5 both on sides Skin: No rash on exposed areas, No ulcerations on exposed areas Data Review Labs Laboratory Tests 03/13/18 17:50: White Blood Count 15.6H, Red Blood Count 5.13, Hemoglobin 16.4, Hematocrit 48, Mean Corpuscular Volume 94, Mean Corpuscular Hemoglobin 32, Mean Corpuscular Hemoglobin Concent 34, Red Cell Distribution Width 14.6H, Platelet Count 335, Mean Platelet Volume 10.0, Neutrophils (%) (Auto) 62, Lymphocytes (%) (Auto) 28 , Monocytes (%) (Auto) 9, Eosinophils (%) (Auto) 0, Basophils (%) (Auto) 0, Neutrophils # (Auto) 9.7H, Lymphocytes # (Auto) 4.4H, Monocytes # (Auto) 1.5H, Eosinophils # (Auto) 0.1, Basophils # (Auto) 0.0, Neutrophils % (Manual) 70, Lymphocytes % (Manual) 21, Monocytes % (Manual) 9, Blood Morphology Comment NORMAL, Sodium Level 140, Potassium Level 4.3, Chloride Level 109H, Carbon Dioxide Level 20L, Anion Gap 11, Blood Urea Nitrogen 22H, Creatinine 1.46H, Estimat Glomerular Filtration Rate 51, BUN/Creatinine Ratio 15, Glucose Level 223H, Calcium Level 9.6, Magnesium Level 1.6L, Total Bilirubin 0.6, Aspartate Amino Transf (AST/SGOT) 19, Alanine Aminotransferase (ALT/SGPT) 27, Alkaline Phosphatase 72, Myoglobin 98.7H, Troponin I < 0.30, B-Type Natriuretic Peptide 671.9H, Total Protein 7.0, Albumin 4.1 03/13/18 19:15: Prothrombin Time 14.2, INR Comment 1.1, Activated Partial Thromboplast Time 33, D-Dimer 0.34 03/13/18 22:24: Glucometer 145H 03/14/18 03:16: White Blood Count 9.9, Red Blood Count 4.23L, Hemoglobin 13.4, Hematocrit 41, Mean Corpuscular Volume 96, Mean Corpuscular Hemoglobin 32, Mean Corpuscular Hemoglobin Concent 33, Red Cell Distribution Width 14.3, Platelet Count 231, Mean Platelet Volume 9.5, Neutrophils (%) (Auto) 57, Lymphocytes (%) (Auto) 34, Monocytes (%) (Auto) 8, Eosinophils (%) (Auto) 1, Basophils (%) (Auto) 0, Neutrophils # (Auto) 5.6, Lymphocytes # (Auto) 3.4, Monocytes # (Auto) 0.8, Eosinophils # (Auto) 0.1, Basophils # (Auto) 0.0, Sodium Level 140, Potassium Level 4.1, Chloride Level 111H, Carbon Dioxide Level 19L, Anion Gap 10, Blood Urea Nitrogen 19H, Creatinine 0.91, Estimat Glomerular Filtration Rate > 60, BUN /Creatinine Ratio 21, Glucose Level 240H, Calcium Level 8.1L, Triglycerides Level 382H, Cholesterol Level 80, LDL Cholesterol Direct 20, VLDL Cholesterol 76H, HDL Cholesterol 19L 03/14/18 05:04: Glucometer 228H 03/14/18 12:59: Glucometer 268H Laboratory Tests 03/13/18 17:50 03/14/18 03:16 ECG Impression ECG Comment Presentation with SVT (AVNRT) to NSR w/o evidence of acute cor ischemia; unchanged subsequently A/P-Cardiology Assessment/Admission Diagnosis PSVT, likely AVNRT, restored to NSR with intravenous adenosine on 03/13/18 w/o subsequent recurrence No evidence of ACS during the admission of 03/13/18 Coronary artery disease and severe peripheral arterial disease, cardiac catheterization was done on May 31, 2017 showing total occlusion of the right coronary artery large dominant artery successful intervention: overlapping stents Xience Alpine 3.2.5 38 followed by 2.533 then 2.512 mm down to the bifurcation, the stents were expanded proximally to 3.0 mm and distally to 2.6 mm, significant dilatation at the overlapping area. Mild to moderate disease in the rest of the coronary system. Most recent cardiac catheterization done August 06, 2017 revealed patent 3 stents in the right coronary artery with mild disease in the distal right, nonobstructive disease. Peripheral vascular disease- history of stent to the left SFA in the past. Most recent peripheral angiogram done August 06, 2017 revealed patent stent in the left SFA with good flow down to the foot. Mild to moderate disease in the right SFA with good flow down to the foot. H/o peripheral neuropathy, followed by primary care physician. Hypertension, by history Hyperlipidemia, by history Diabetes mellitus, followed and managed by primary care physician Chronic tobacco use, advised to quit smoking Strong family history of heart disease with father in his 40s with myocardial infarction Elevated BMI of approx 29 for which wgt loss has been advised H/o rectal bleed. Colonoscopy in January 2018 showed int h'hoids and colon polyps ; underwent snare polypectomy by Dr Reardon and followed by him Discussion and Recomendations * Add long-acting dilt to regimen * Continue other meds, including his dual antiplatelet therapy * Advised close outpatient f/u (Dr Zendejas) * Advised return to ER for any recurrent symptoms or new symptoms * Advised immediate and complete smoking cessation * Questions answered in detail * Pros and cons of new med reviewed Clinical Quality Measures AMI/AHF: ASA po Prior to arrival: No DVT/VTE Risk/Contraindication: Risk Factor Score Per Nursin RFS Level Per Nursing on Admit: 3=High PRAKASH GOULD MD FACP FACC CCDS March 14, 2018 13:54
--- NOTE | 2018-03-14 14:03 | Short Stay Summary ---
History of Present Illness History of Present Illness Reason for visit/HPI 52 yo male presented to ER with rapid heart rate, low blood pressure and dizziness. He reports he had similar issues around a year ago and ultimately had he believes 3 stents put in his heart. In the last two weeks, he has had several episodes of fast heart rate, this time it lasted for several hours and he had chest pain and dizziness. In the ER he was found to be in SVT and resumed NSR with adenosine. He has remained in NSR since then and denies any symptoms this morning. He notes he had a stress test with follow up cath in Jun 2017 and stents were patent. He has f/u with Dr. Zendejas the first week of March. He says he has all of his medications and has not been out or missed doses. He is anxious to go home. Date of Admission March 13, 2018 at 8:25 pm Date of Discharge March 14, 2018 Time Seen by Provider: 10:38 Attending Physician Negro Monsalve MD Admitting Physician Estrellita Pandya MD Consult Dr. Hoyos/Cardiology Allergies and Home Medications Allergies Coded Allergies: Penicillins (Verified Allergy, Unknown, 01/19/18) Home Medications Acetaminophen 500 Mg Tablet, 1,500-2,000 MG PO Q4H, (Reported) Aspirin 81 Mg Tablet.dr, 81 MG PO DAILY, (Reported) Clopidogrel Bisulfate 75 Mg Tablet, 75 MG PO DAILY, (Reported) Diltiazem HCl 240 Mg Cap.er.24h, 240 MG PO DAILY Prescribed by: PRAKASH HOYOS on 03/14/18 1412 Gabapentin 600 Mg Tablet, 600 MG PO TID, (Reported) Linagliptin 5 Mg Tablet, 5 MG PO DAILY, (Reported) Lisinopril 10 Mg Tablet, 10 MG PO DAILY, (Reported) Metformin HCl 1,000 Mg Tab.er.24, 1,000 MG PO BID, (Reported) Metoprolol Succinate 25 Mg Tab.er.24h, 25 MG PO HS, (Reported) Pantoprazole Sodium 40 Mg Tablet.dr, 40 MG PO DAILY, (Reported) Pregabalin 50 Mg Capsule, 50 MG PO BID, (Reported) Rosuvastatin Calcium 40 Mg Tablet, 40 MG PO DAILY, (Reported) Patient Home Medication List Home Medication List Reviewed: Yes Past Ytcugdl-Kkwhpz-Ysoart Hx Patient Social History Alcohol Use: Denies Use Recreational Drug Use: No Smoking Status: Current Everyday Smoker Type Used: Cigarettes 2nd Hand Smoke Exposure: Yes Physical Abuse Screen: No Sexual Abuse: No Recent Foreign Travel: No Contact w/other who traveled: No Recent Hopitalizations: No Recent Infectious Disease Expo: No Seasonal Allergies Seasonal Allergies: Yes Surgeries Yes Appendectomy, Coronary Stent, Vascular Surgery (left leg stenting) Respiratory Yes COPD Currently Using CPAP: No Currently Using BIPAP: No Cardiovascular Yes (STENTS X3 HEART, STENTS X2 LEG) Angina, Coronary Artery Disease, High Cholesterol, Hypertension, Peripheral Vascular Neurological Yes Neuropathy Reproductive System Hx Reproductive Disorders: No Sexually Transmitted Disease: No HIV/AIDS: No Genitourinary No Gastrointestinal Yes Abdominal Hernia, Gastroesophageal Reflux, Hemorrhoids, Chronic Diarrhea Musculoskeletal Yes Back Injury, Chronic Back Pain Endocrine History of Endocrine Disorders: Yes Endocrine Disorders: Diabetes, Insulin dep HEENT History of HEENT Disorders: No (missing teeth) Loss of Vision: Bilateral Hearing Impairment: Denies Cancer No Psychosocial History of Psychiatric Problem: No Behavioral Health Disorders: Depression Integumentary History of Skin or Integumenta: No Blood Transfusions History of Blood Disorders: No Adverse Reaction to a Blood Tr: No (N/A) Family Medical History Significant Family History: No Pertinent Family Hx, Heart Disease, CAD Over 55 Years Old, Diabetes, Hypertension, Lung Disease, Vascular Disease Family Hx: Alzheimer's disease 19 MOTHER Diabetes mellitus 19 MOTHER FH: [place] (myocardial infarction) 19 FATHER ( at 48 ) FH: pancreatic cancer grandfather Hypercholesterolemia 19 MOTHER Hypertension 19 MOTHER Constitutional: no symptoms reported EENTM: no symptoms reported Respiratory: no symptoms reported Cardiovascular: see HPI Gastrointestinal: no symptoms reported Genitourinary: no symptoms reported Musculoskeletal: no symptoms reported Skin: no symptoms reported Psychiatric/Neurological: No Symptoms Reported Physical Exam Vital Signs Vital Signs - First Documented 03/13/18 17:40 Temp 96.9 Pulse 162 Resp 20 B/P (MAP) 74/57 (63) Pulse Ox 99 O2 Delivery Nasal Cannula O2 Flow Rate 2.00 Capillary Refill : Less Than 3 Seconds General Appearance: No Apparent Distress, WD/WN Respiratory: Lungs Clear, Normal Breath Sounds Cardiovascular: Regular Rate, Rhythm, No Murmur Extremity: No Pedal Edema Neurologic/Psychiatric: Alert, Normal Mood/Affect Skin: Normal Color, Warm/Dry Clinical Quality Measures AMI/AHF: ASA po Prior to arrival: No DVT/VTE Risk/Contraindication: Risk Factor Score Per Nursin RFS Level Per Nursing on Admit: 3=High Short Stay Diagnosis Discharge Diagnosis-Short Stay Admission Diagnosis: PSVT Hypotension CAD Tobacco use Final Discharge Diagnosis: PSVT- converted with adenosine, no recurrence. Cardiology consulted and started cardizem CD on discharge. Has f/u with Dr. Zendejas previously scheduled in early March. Hypotension- resolved with conversion of PSVT CAD- stable, no elevation in troponin, follow up with Dr. Zendejas as scheduled. Conclusion Labs Laboratory Tests 03/13/18 17:50: White Blood Count 15.6H, Red Blood Count 5.13, Hemoglobin 16.4, Hematocrit 48, Mean Corpuscular Volume 94, Mean Corpuscular Hemoglobin 32, Mean Corpuscular Hemoglobin Concent 34, Red Cell Distribution Width 14.6H, Platelet Count 335, Mean Platelet Volume 10.0, Neutrophils (%) (Auto) 62, Lymphocytes (%) (Auto) 28 , Monocytes (%) (Auto) 9, Eosinophils (%) (Auto) 0, Basophils (%) (Auto) 0, Neutrophils # (Auto) 9.7H, Lymphocytes # (Auto) 4.4H, Monocytes # (Auto) 1.5H, Eosinophils # (Auto) 0.1, Basophils # (Auto) 0.0, Neutrophils % (Manual) 70, Lymphocytes % (Manual) 21, Monocytes % (Manual) 9, Blood Morphology Comment NORMAL, Sodium Level 140, Potassium Level 4.3, Chloride Level 109H, Carbon Dioxide Level 20L, Anion Gap 11, Blood Urea Nitrogen 22H, Creatinine 1.46H, Estimat Glomerular Filtration Rate 51, BUN/Creatinine Ratio 15, Glucose Level 223H, Calcium Level 9.6, Magnesium Level 1.6L, Total Bilirubin 0.6, Aspartate Amino Transf (AST/SGOT) 19, Alanine Aminotransferase (ALT/SGPT) 27, Alkaline Phosphatase 72, Myoglobin 98.7H, Troponin I < 0.30, B-Type Natriuretic Peptide 671.9H, Total Protein 7.0, Albumin 4.1 03/13/18 19:15: Prothrombin Time 14.2, INR Comment 1.1, Activated Partial Thromboplast Time 33, D-Dimer 0.34 03/13/18 22:24: Glucometer 145H 03/14/18 03:16: White Blood Count 9.9, Red Blood Count 4.23L, Hemoglobin 13.4, Hematocrit 41, Mean Corpuscular Volume 96, Mean Corpuscular Hemoglobin 32, Mean Corpuscular Hemoglobin Concent 33, Red Cell Distribution Width 14.3, Platelet Count 231, Mean Platelet Volume 9.5, Neutrophils (%) (Auto) 57, Lymphocytes (%) (Auto) 34, Monocytes (%) (Auto) 8, Eosinophils (%) (Auto) 1, Basophils (%) (Auto) 0, Neutrophils # (Auto) 5.6, Lymphocytes # (Auto) 3.4, Monocytes # (Auto) 0.8, Eosinophils # (Auto) 0.1, Basophils # (Auto) 0.0, Sodium Level 140, Potassium Level 4.1, Chloride Level 111H, Carbon Dioxide Level 19L, Anion Gap 10, Blood Urea Nitrogen 19H, Creatinine 0.91, Estimat Glomerular Filtration Rate > 60, BUN /Creatinine Ratio 21, Glucose Level 240H, Calcium Level 8.1L, Triglycerides Level 382H, Cholesterol Level 80, LDL Cholesterol Direct 20, VLDL Cholesterol 76H, HDL Cholesterol 19L 03/14/18 05:04: Glucometer 228H 03/14/18 12:59: Glucometer 268H Conclusion/Plan See final discharge diagnosis. Copy Copies To 1: ESTRELLITA PANDYA MD,NEGRO Diamond MD March 14, 2018 2:03 pm
[2018-03-14] MEDS ORDERED: DILT240C63 PO (14:12)
[2018-03-14] MEDS ORDERED: DILTIAZEM 240 MG (CARDIZEM CD) CAP PO NR (14:14)
--- NOTE | 2018-03-14 15:18 | Discharge Instructions ---
Discharge Inst-[facility] Discharge Medications New, Converted or Re-Newed RX: Transmitted to Pharmacy New Medications: Diltiazem HCl (Diltiazem 24Hr Cd) 240 Mg Cap.er.24h 240 MG PO DAILY for 30 Days, #30 CAP 1 Refill Continued Medications: Acetaminophen (Tylenol Extra Strength) 500 Mg Tablet 7677-9120 MG PO Q4H, TAB (This prescription has been renewed) Aspirin (Aspir 81) 81 Mg Tablet.dr 81 MG PO DAILY, TAB (This prescription has been renewed) Clopidogrel Bisulfate (Plavix) 75 Mg Tablet 75 MG PO DAILY, TAB (This prescription has been renewed) Gabapentin (Gabapentin) 600 Mg Tablet 600 MG PO TID, TAB (This prescription has been renewed) Linagliptin (Tradjenta) 5 Mg Tablet 5 MG PO DAILY, TAB (This prescription has been renewed) Lisinopril (Lisinopril) 10 Mg Tablet 10 MG PO DAILY, TAB (This prescription has been renewed) Metformin HCl (Metformin HCl ER) 1,000 Mg Tab.er.24 1000 MG PO BID, TAB (This prescription has been renewed) Metoprolol Succinate (Metoprolol Succinate) 25 Mg Tab.er.24h 25 MG PO HS, TAB Pantoprazole Sodium (Protonix) 40 Mg Tablet.dr 40 MG PO DAILY, TAB (This prescription has been renewed) Pregabalin (Lyrica) 50 Mg Capsule 50 MG PO BID, CAP (This prescription has been renewed) Rosuvastatin Calcium (Crestor) 40 Mg Tablet 40 MG PO DAILY, TAB (This prescription has been renewed) Discontinued Medications: [Leg Cramp] () 1 TAB PO HS Patient Instructions Goal/Follow Up Appt: Follow up with Dr. Zendejas as scheduled. Someone from [facility] should call you next week to schedule a follow up. Return to The [facility] For: Fever, racing heart that cannot be slowed down with valsalva manuever, dizziness. Activity & Diet Discharge Diet: ADA Diet, Cardiac Diet Activity as Tolerated: Yes Orders-Post D/C & Referrals Pneu Vac Indicated: Yes Copy Copies To 1: ESTRELLITA PANDYA MD,NEGRO Diamond MD March 14, 2018 1:57 pm
[2018-03-14] MEDS ORDERED: metFORMIN 500 MG (GLUCOPHAGE) TAB PO SCH (17:00)
[2018-03-14] MEDS ORDERED: PREGABALIN 50 MG (LYRICA) CAP PO SCH (21:00)
[2018-03-15] MEDS ORDERED: PANTOPRAZOLE 40 MG (PROTONIX) TAB PO SCH (09:00)
[2018-03-15] MEDS ORDERED: LINAGLIPTIN (TRADJENTA) 5 MG TABLET PO SCH (09:00)
[2018-03-15] MEDS ORDERED: ASPIRIN E.C. 81 MG (ECOTRIN) TAB PO SCH (09:00)
[2018-03-15] MEDS ORDERED: lisINopril 10 MG (PRINIVIL) TABLET PO SCH (09:00)
[2018-03-15] MEDS ORDERED: ROSUVASTATIN 20 MG (CRESTOR) TABLET PO SCH (09:00)
[2018-03-15] MEDS ORDERED: DILTIAZEM 240 MG (CARDIZEM CD) CAP PO SCH (09:00)
[2018-03-15] MEDS ORDERED: CLOPIDOGREL 75 MG (PLAVIX) TABLET PO SCH (09:00)
--- OUTSIDE RECORDS SUMMARY | 2018-03-19 17:06 | XMS REPORT ---
Author Author FELECIA HOLLOWAY [facility] Address [address] [place] [address] Care Team Providers Care Maintenance Advisor Name Role Phone FELECIA HOLLOWAY Unavailable PROBLEMS Type Condition ICD9-CM Code ZJQ19-HT Code Onset Dates Condition Status SNOMED Code Problem 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 32440054 Problem Hydrocele, unspecified hydrocele type N43.3 Active 70518958 Problem Hypercholesteremia E78.0 Active 32268139 Problem Hematochezia K92.1 Active 308806052603978 Problem Chronic ischemic heart disease I25.9 Active 181953968 Problem PAD (peripheral artery disease) I73.9 Active 965682471 Problem Abscess L02.91 Active 621490424 Problem Chronic GERD K21.9 Active 425952316 Problem Hypertension, unspecified type I10 Active 58426081 ALLERGIES No Information ENCOUNTERS Encounter Location Date Diagnosis [place] [id number] [place] [phone] Jan, [place] [id number] [place] [address] 365[address] Dec, Type 2 diabetes 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 ; Hematochezia K92.1 ; PAD (peripheral artery disease) I73.9 ; Chronic ischemic heart disease I25.9 and Weakness of left lower extremity R29.898 [place] [id number] [place] [address] 6033 Dec, Type 2 diabetes 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 [place] [id number] [place] [address]90- 8646 Nov, Type 2 diabetes 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 and PAD (peripheral artery disease) I73.9 [place] [address], [place] [address] Oct, Type 2 diabetes 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 [place] [address] [id number] [id number] Oct, Type 2 diabetes 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 [facility] [address], [place] [address] Oct, Type 2 diabetes 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 and Chronic GERD K21.9 [facility] [address] [place] [address]61- [address] Oct, Chronic GERD K21.9 [facility] [address] [place] [address]65- [address] Sep, [facility] [address] [place] [address]298- 36[address] Sep, [facility] [address] [place] [address] 29132- 3024 Sep, Type 2 diabetes 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 [facility] [address] [place] [address]991- 6711 Aug, [facility] [address] [place] [address] 30[address]- 8[address] Aug, [facility] [address], [place] [address] Aug, [facility] [address], [place] [address] Aug, Type 2 diabetes 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 [facility] [address] [address] Jul, Type 2 diabetes 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 ; Chronic GERD K21.9 ; Hypercholesteremia E78.0 and PAD (peripheral artery disease) I73.9 [facility] [address], [place] [address] Jul, Type 2 diabetes 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 [facility] [id number] [place] [address] 06779- 4649 Jul, [facility] [address] [place] [address] [phone] Jul, [facility] [id number] [place] [address] 62146- 9453 Jul, Type 2 diabetes 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 [facility] [id number] [place] [address] 32456- 4573 Jul, [place] [id number] [place] [id number] Jul, Mixed hyperlipidemia E78.2 ; Hypertension, unspecified type I10 ; PAD ( peripheral artery disease) I73.9 and Chronic ischemic heart disease I25.9 [facility] [id number] [place] [address] 76500- 6833 Jun, Type 2 diabetes 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 [facility] [address] [place] [address] 42027- 6446 Jun, Type 2 diabetes 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 [address] [place] [id number] Jun, [facility] [id number] [place] [address] 81706- 2512 Jun, Type 2 diabetes 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 ; PAD (peripheral artery disease) I73.9 ; Hypercholesteremia E78.0 and Hypertension, unspecified type I10 [address] [place] [address] [phone] Jun, 2017 Type 2 diabetes 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 [facility] [id number] [place] [address] 93971- 2277 May, [facility] [id number] [place] [address] 87435- 2546 May, [facility] [address] [id number] [place] [id number] Apr, Abscess L02.91 [facility] [address] [id number] [place] [id number] Apr, [facility] [address] [id number] [id number] Apr, Dental caries K02.9 and Dental examination Z01.[address] [facility] [address] [id number] [place] [id number] Apr, Type 2 diabetes 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 [facility] [address] [id number] [place] [id number] Mar, Type 2 diabetes 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 [facility] [address] [id number] [place] [id number] Mar, Abscess L02.91 and Type 2 diabetes 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 [facility] [id number] [place] [address] [phone] February, Abscess L02.[address] [facility] [address] [id number] [place] [id number] Jan, [facility] [address] [id number] [place] [id number] Jan, Type 2 diabetes 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 [facility] [address] [id number] [place] [id number] Jan, [facility] [address] [id number] [place] [phone] Jan, Abscess L02.[address] [facility] [address] [id number] [place] [id number] Dec, Type 2 diabetes 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 [facility] [address] [id number] [place] [id number] Nov, Type 2 diabetes 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 [id number] [place] [id number] Oct, Type 2 diabetes 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 [facility] [address] [id number] [place] [id number] Oct, Type 2 diabetes 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 [facility] [address] [id number] [place] [id number] Oct, Type 2 diabetes 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 and Hydrocele , unspecified hydrocele type N43.3 [facility] [place] [address] [id number] [place] [phone] Sep, Enlarged testicle N50.89 [facility] [address] [id number] [place] [id number] Sep, Enlarged testicle N50.89 [facility] [address] [id number] [place] [phone] Sep, Type 2 diabetes 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 [facility] [id number] [place] [address] [id number] Sep, [facility] [id number] [place] [address] [id number] Aug, Dyspepsia R10.13 and Type 2 diabetes 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 [facility] [address] [id number] [place] [address] [id number] Jul, [facility] [id number] [place] [address] [id number] Jul, Type 2 diabetes 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 and Dyspepsia R10.[address] [facility] [address] [id number] [place] [id number] Jun, [facility] [address] [id number] [place] [phone] Jun, [facility] [place] [id number] [place] [address] [phone] Jun, Type 2 diabetes 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 and Boils L02.92 [facility] [id number] [place] [id number] May, Type 2 diabetes 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 [facility] [address] [id number] [place]ENTER[place] [id number] May, Type 2 diabetes 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 and Bloating R14.0 [facility] [place] [address] [id number] [place] [phone] Apr, [facility] [place] [address] [facility] [id number] [id number] Apr, [facility] [place] [place] [address] [id number] [place] [id number] Apr, Type 2 diabetes 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 [facility] [place] [id number] [place] [address] [id number] Mar, [facility] [id number] [place] [address] [id number] Mar, Type 2 diabetes 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 [facility] [id number] [place] [address] [id number] February, Type 2 diabetes 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 [facility] [address] [id number] [place]ENTER[place] [id number] February, Type 2 diabetes 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 [facility] [id number] [place] [address] [id number] February, Type 2 diabetes 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 and Hypercholesteremia E78.0 [facility] [address] [place] [address] [id number] Jan, Type 2 diabetes 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 [facility] [address] [id number] [place] [id number] Jan, Type 2 diabetes 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 IMMUNIZATIONS No Known Immunizations SOCIAL HISTORY Never Assessed REASON FOR VISIT Repository Medication PLAN OF CARE VITAL SIGNS MEDICATIONS Medication Instructions Dosage Frequency Start Date End Date Duration Status Simvastatin 20 mg Orally Once a day 1 tablet in the evening 24h February, Active Accu-Chek Britt Test Strips as directed 8h Jan, 0 days Active RESULTS No Results PROCEDURES No Known procedures INSTRUCTIONS MEDICATIONS ADMINISTERED No Known Medications MEDICAL (GENERAL) HISTORY Type Description Date Medical [...] stents to the right coronary artery by [facility] 05/31/17 Hospitalization History ER Visit for increased heart rate and elevated blood sugar 08/2015 Hospitalization History Had tooth extracted and became septic, was in hospital for several days. 1999 Hospitalization History [facility] discharge dx PAD,CAD, and SVT. Pt has f/u scheduled with 06/0205/31/2016
--- OUTSIDE RECORDS SUMMARY | 2018-03-19 17:06 | XMS REPORT ---
Author Author FELECIA HOLLOWAY [facility] Address [address] [place] [address] Care Team Providers [employer] Professor Name Role Phone FELECIA HOLLOWAY Unavailable PROBLEMS Type Condition ICD9-CM Code RSD14-VI Code Onset Dates Condition Status SNOMED Code Problem Hypercholesteremia E78.0 Active 75340449 Problem 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 51948218 Problem Chronic ischemic heart disease I25.9 Active 797931649 Problem Chronic GERD K21.9 Active 839707468 Problem Abscess L02.91 Active 120585233 Problem Hydrocele, unspecified hydrocele type N43.3 Active 42784877 Problem Hypertension, unspecified type I10 Active 06689821 Problem PAD (peripheral artery disease) I73.9 Active 359845427 ALLERGIES No Information SOCIAL HISTORY Never Assessed PLAN OF CARE VITAL SIGNS MEDICATIONS Medication Instructions Dosage Frequency Start Date End Date Duration Status Gabapentin 600 MG Orally 3 times a day 1 capsule am, noon, 2 hs 8h Jan, 0 days Active Accu-Chek Britt Test Strips as directed 8h Jan, 0 days Active Lisinopril 10 mg Orally Once a day 1 tablet 24h 0 days Active MetFORMIN HCl ER 500 mg Orally twice a day 2 tabs 12h 10 Jul, 2016 0 days Active RESULTS No Results PROCEDURES No Known procedures IMMUNIZATIONS No Known Immunizations MEDICAL (GENERAL) HISTORY [...] stents to the right coronary artery by Dr.Marji SAMS 05/31/17 Hospitalization History ER Visit for increased heart rate and elevated blood sugar 08/2015 Hospitalization History Had tooth extracted and became septic, was in hospital for several days. 1999 Hospitalization History [facility] discharge dx PAD,CAD, and SVT. Pt has f/u scheduled with 06/0205/31/2016
--- OUTSIDE RECORDS SUMMARY | 2018-03-19 17:07 | XMS REPORT ---
Author Author FELECIA HOLLOWAY [facility] Address [address] [place] [address] Care Team Providers Care Nurse Emergency Room Name Role Phone FELECIA HOLLOWAY Unavailable PROBLEMS Type Condition ICD9-CM Code NPP04-OV Code Onset Dates Condition Status SNOMED Code Problem 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 44926333 Problem Hydrocele, unspecified hydrocele type N43.3 Active 05919865 Problem Hypercholesteremia E78.0 Active 15256021 Problem Hematochezia K92.1 Active 529954967880464 Problem Chronic ischemic heart disease I25.9 Active 543879225 Problem PAD (peripheral artery disease) I73.9 Active 333731310 Problem Abscess L02.91 Active 690889558 Problem Chronic GERD K21.9 Active 354395758 Problem Hypertension, unspecified type I10 Active 68767352 ALLERGIES No Information ENCOUNTERS Encounter Location Date Diagnosis [place] [id number] [place] [address] 14408- 1525 Jan, [place] [id number] [place] [address] 37492- 5946 Dec, Type 2 diabetes 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 ; Hematochezia K92.1 ; PAD (peripheral artery disease) I73.9 ; Chronic ischemic heart disease I25.9 and Weakness of left lower extremity R29.898 [place] [id number] [place] [address] 29819- 6332 Dec, Type 2 diabetes 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 [place] [id number] [place] [address] 00001- 0489 Nov, Type 2 diabetes 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 and PAD (peripheral artery disease) I73.9 [place] [address] [address] 9978 Oct, Type 2 diabetes 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 [place] [address] [id number] [id number] Oct, Type 2 diabetes 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 [facility] [address] [address] 57[address] Oct, Type 2 diabetes 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 and Chronic GERD K21.9 [facility] [address] [place] [address] 71465- 3145 Oct, Chronic GERD K21.9 [facility] [address] [place] [address] 74714- 7215 Sep, [facility] [address] [place] [address] 92587- 2084 Sep, [facility] [address] [place] [address] 32882- 0699 Sep, Type 2 diabetes 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 [facility] [address] [place] [address] 91291- 4344 Aug, [facility] [address] [place] [address] 38334- 5476 Aug, [facility] [address] [address]- 6900 Aug, [facility] [address] [address]- 1301 Aug, Type 2 diabetes 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 [facility] [address] [address] 8116 Jul, Type 2 diabetes 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 ; Chronic GERD K21.9 ; Hypercholesteremia E78.0 and PAD (peripheral artery disease) I73.9 [facility] [address] [address]- 6554 Jul, Type 2 diabetes 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 [facility] [id number] [place] [address] 10887- 1922 Jul, [facility] [address] [place] [address] [phone] Jul, [facility] [id number] [place] [address] 85456- 9237 Jul, Type 2 diabetes 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 [facility] [id number] [place] [address] 99424- 0575 Jul, [place] [id number] [place] [address] [phone] Jul, Mixed hyperlipidemia E78.2 ; Hypertension, unspecified type I10 ; PAD ( peripheral artery disease) I73.9 and Chronic ischemic heart disease I25.9 [facility] [id number] [place] [address] 09379- 2344 Jun, Type 2 diabetes 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 [facility] [address] [place] [address] 03391- 9966 Jun, Type 2 diabetes 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 [address] [place] [address] [phone] Jun, [facility] [id number] [place] [address] 76430- 8522 Jun, Type 2 diabetes 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 ; PAD (peripheral artery disease) I73.9 ; Hypercholesteremia E78.0 and Hypertension, unspecified type I10 [address] [place] [address] [id number] Jun, 2017 Type 2 diabetes 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 [facility] [id number] [place] [address] 45807- 0097 May, [facility] [id number] [place] [address] 01669- 2546 May, [facility] [address] [id number] [place] [id number] Apr, Abscess L02.91 [facility] [address] [id number] [place] [phone] Apr, [facility] [address] [id number] [place] [phone] Apr, Dental caries K02.9 and Dental examination Z01.[address] [facility] [address] [id number] [place] [phone] Apr, Type 2 diabetes 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 [address] [id number] [place] [id number] Mar, Type 2 diabetes 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 [address] [id number] [place] [id number] Mar, Abscess L02.91 and Type 2 diabetes 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 [id number] [place] [address] [id number] February, Abscess L02.[address] [id number] [place] [phone] Jan, [facility] [address] [id number] [place] [id number] Jan, Type 2 diabetes 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 [id number] [place] [id number] Jan, [facility] [address] [id number] [place] [phone] Jan, Abscess L02.[address] [id number] [place] [id number] Dec, Type 2 diabetes 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 [id number] [place] [id number] Nov, Type 2 diabetes 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 [place] [address] [id number] Oct, Type 2 diabetes 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 [facility] [address] [id number] [place] [id number] Oct, Type 2 diabetes 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 [facility] [address] [id number] [place] [phone] Oct, Type 2 diabetes 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 and Hydrocele , unspecified hydrocele type N43.3 [facility] [address] [id number] [place] [phone] Sep, Enlarged testicle N50.89 [facility] [address] [id number] [place] [phone] Sep, Enlarged testicle N50.89 [facility] [address] [id number] [place] [phone] Sep, Type 2 diabetes 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 [facility] [id number] [place] [address] [id number] Sep, [facility] [address] [id number] [place] [address] [id number] Aug, Dyspepsia R10.13 and Type 2 diabetes 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 [facility] [id number] [place] [address] [id number] Jul, [facility] [address] [id number] [place] [address] [id number] Jul, Type 2 diabetes 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 and Dyspepsia R10.[address] [facility] [address] [id number] [place] [phone] Jun, [facility] [address] [id number] [place] [phone] Jun, [facility] [address] [id number] [place] [address] [id number] Jun, Type 2 diabetes 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 and Boils L02.92 [facility] [id number] [place] [address] [id number] May, Type 2 diabetes 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 [facility] [address] [id number] [place] [id number] May, Type 2 diabetes 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 and Bloating R14.0 [facility] [id number] [place] [phone] Apr, [facility] [place] [address] [facility] [id number] [phone] Apr, [facility] [id number] [place] [address] [id number] Apr, Type 2 diabetes 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 [facility] [id number] [place] [address] [id number] Mar, [facility] [id number] [place] [address] [id number] Mar, Type 2 diabetes 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 [facility] [id number] [place] [address] [id number] February, Type 2 diabetes 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 [facility] [id number] [place] [address] [id number] February, Type 2 diabetes 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 [facility] [id number] [place] [address] [id number] February, Type 2 diabetes 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 and Hypercholesteremia E78.0 [address] [place] [address] [id number] Jan, Type 2 diabetes 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 [facility] [id number] [place] [address] [id number] Jan, Type 2 diabetes 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 IMMUNIZATIONS No Known Immunizations SOCIAL HISTORY Never Assessed REASON FOR VISIT PALS PLAN OF CARE VITAL SIGNS MEDICATIONS Unknown Medications RESULTS No Results PROCEDURES No Known procedures [...] stents to the right coronary artery by [facility] 05/31/17 Hospitalization History ER Visit for increased heart rate and elevated blood sugar 08/2015 Hospitalization History Had tooth extracted and became septic, was in hospital for several days. 1999 Hospitalization History [facility] discharge dx PAD,CAD, and SVT. Pt has f/u scheduled with 06/0205/31/2016
--- OUTSIDE RECORDS SUMMARY | 2018-03-19 17:07 | XMS REPORT ---
Author Author ESTRELLITA PANDYA [facility] Address [address] [place] [address] Care Team Providers Care Flat Cutter Name Role Phone ESTRELLITA PANDYA Unavailable PROBLEMS Type Condition ICD9-CM Code GIO63-KY Code Onset Dates Condition Status SNOMED Code Problem Abscess L02.91 Active 305488969 Problem PAD (peripheral artery disease) I73.9 Active 658181132 Problem Hypertension, unspecified type I10 Active 49467063 Problem 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 70618956 Problem Hypercholesteremia E78.0 Active 17740568 Problem Hydrocele, unspecified hydrocele type N43.3 Active 08138583 Problem Mixed hyperlipidemia E78.2 Active 814990703 Problem Degenerative disc disease, lumbar M51.36 Active 22910195 Problem Chronic ischemic heart disease I25.9 Active 755151328 Problem Chronic GERD K21.9 Active 247231291 Problem Chronic obstructive pulmonary disease, unspecified COPD type J44.9 Active 35003118 Problem Hematochezia K92.1 Active [id number] ALLERGIES No Information ENCOUNTERS Encounter Location Date Diagnosis [place] [id number] [place] [address] 97888- 2271 Jan, Type 2 diabetes 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 ; Mixed hyperlipidemia E78.2 ; Chronic obstructive pulmonary disease, unspecified COPD type J44.9 ; Hematochezia K92.1 and Degenerative disc disease, lumbar M51.36 [facility] [address] [address] [id number] [phone] Jan, Chronic ischemic heart disease I25.9 [facility] [id number] [address]- 2167 Jan, PAD (peripheral artery disease) I73.9 and Type 2 diabetes 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 [place] [address] [address]- 6458 Dec, Type 2 diabetes 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 ; Hematochezia K92.1 ; PAD (peripheral artery disease) I73.9 ; Chronic ischemic heart disease I25.9 and Weakness of left lower extremity R29.898 [facility] [address], [place] [address]- 4946 Dec, Type 2 diabetes 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 [facility] [address], [place] [address]- 8005 Nov, Type 2 diabetes 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 and PAD (peripheral artery disease) I73.9 [facility] [address], [place] [address]- 5576 Oct, Type 2 diabetes 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 [address] [id number] Oct, Type 2 diabetes 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 [facility] [address], [place] [address]- 5022 Oct, Type 2 diabetes 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 and Chronic GERD K21.9 [facility] [address], [place] [address]- 2551 Oct, Chronic GERD K21.9 [facility] [address], [place] [address]- 4370 Sep, [facility] [address], [place] [address]- 6664 Sep, [facility] [address], [place] [address]- 2137 Sep, Type 2 diabetes 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 [facility] [address], [place] [address]- 1374 Aug, [facility] [address], [place] [address]- 0424 Aug, [facility] [id number] [place] [address] 17722- 0072 Aug, [facility] [id number] [place] [address] 97189- 0062 Aug, Type 2 diabetes 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 [facility] [id number] [place] [address] 16419- 9839 Jul, Type 2 diabetes 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 ; Chronic GERD K21.9 ; Hypercholesteremia E78.0 and PAD (peripheral artery disease) I73.9 [place] [address] [place] [address] 53354- 7110 Jul, Type 2 diabetes 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 [place] [id number] [place] [address] 36352- 4084 Jul, [address] [place] [address] [id number] Jul, [place] [id number] [place] [address] 72283- 8807 Jul, Type 2 diabetes 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 [place] [address] [place] [address] 65444- 3476 Jul, [address] [place] [address] [phone] Jul, Mixed hyperlipidemia E78.2 ; Hypertension, unspecified type I10 ; PAD ( peripheral artery disease) I73.9 and Chronic ischemic heart disease I25.9 [facility] [id number] [place] [address] 49554- 0146 Jun, Type 2 diabetes 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 [facility] [address] [place] [address] 51584- 7896 Jun, Type 2 diabetes 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 [place] [address] [id number] Jun, [facility] [id number] [place] [address] 11329- 6476 Jun, Type 2 diabetes 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 ; PAD (peripheral artery disease) I73.9 ; Hypercholesteremia E78.0 and Hypertension, unspecified type I10 [facility] [id number] [place] [address] [id number] Jun, Type 2 diabetes 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 [facility] [id number] [place] [address] 91943- 1818 May, [facility] [id number] [place] [address] 802915- 2527 May, [facility] [id number] [place] [address] [id number] Apr, Abscess L02.91 [facility] [place] [id number] [place] [address] [id number] Apr, [facility] [id number] [place] [address] [phone] Apr, Dental caries K02.9 and Dental examination Z01.20 [facility] [id number] [place] [address] [id number] Apr, Type 2 diabetes 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 [facility] [id number] [place] [address] [id number] Mar, Type 2 diabetes 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 [facility] [id number] [place] [address] [id number] Mar, Abscess L02.91 and Type 2 diabetes 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 [facility] [id number] [place] [address] [id number] February, Abscess L02.91 [facility] [place] [id number] [place] [address] [id number] Jan, [facility] [id number] [place] [address] [id number] Jan, Type 2 diabetes 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 [facility] [id number] [place] [address] [id number] Jan, [facility] [id number] [place] [address] [id number] Jan, Abscess L02.91 [facility] [id number] [place] [address] [id number] Dec, Type 2 diabetes 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 [facility] [id number] [place] [address] [id number] Nov, Type 2 diabetes 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 [facility] [id number] [place] [address] [id number] Oct, Type 2 diabetes 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 [facility] [id number] [place] [address] [id number] Oct, Type 2 diabetes 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 [facility] [id number] [place] [address] [id number] Oct, Type 2 diabetes 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 and Hydrocele , unspecified hydrocele type N43.3 [facility] [id number] [place] [address] [id number] Sep, Enlarged testicle N50.89 [facility] [id number] [place] [address] [phone] Sep, Enlarged testicle N50.89 [facility] [id number] [place] [address] [id number] Sep, Type 2 diabetes 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 [facility] [id number] [place] [address] [id number] Sep, [facility] [id number] [place] [address] [id number] Aug, Dyspepsia R10.13 and Type 2 diabetes 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 [facility] [id number] [place] [address] [id number] Jul, [facility] [address] [id number] [place] [phone] Jul, Type 2 diabetes 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 and Dyspepsia R10.13 [facility] [place] [address] [id number] [place] [phone] Jun, [facility] [place] [id number] [place] [address] [id number] Jun, [facility] [place] [id number] [place] [address] [id number] Jun, Type 2 diabetes 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 and Boils L02.[address] [facility] [place] [id number] [place] [address] [id number] May, Type 2 diabetes 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 [facility] [place] [address] [id number] [place] [phone] May, Type 2 diabetes 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 and Bloating R14.[address] [facility] [place] [address] [id number] [place] [phone] Apr, [facility] [address] [id number][place] [phone] Apr, [facility] [place] [address] [id number] [place] [phone] Apr, Type 2 diabetes 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 [facility] [place] [address] [id number] [place] [phone] Mar, [facility] [place] [address] [id number] [place] [phone] Mar, Type 2 diabetes 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 [facility] [place] [address] [id number] [place]ARK[place] [phone] February, Type 2 diabetes 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 [facility] [place] [address] [id number] [place] [phone] February, Type 2 diabetes 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 [facility] [place] [address] [id number] [place]ARK[place] [phone] February, Type 2 diabetes 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 and Hypercholesteremia E78.0 [facility] [address] [facility] [id number] [place] [phone] Jan, Type 2 diabetes 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 [facility] [address] [facility] [id number] [place] [phone] Jan, Type 2 diabetes 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 IMMUNIZATIONS No Known Immunizations SOCIAL HISTORY Never Assessed REASON FOR VISIT DM ed scheduled/ bolus insulin started PLAN OF CARE VITAL SIGNS MEDICATIONS Medication Instructions Dosage Frequency Start Date End Date Duration Status NovoLog Flexpen 100 UNIT/ML Subcutaneous before meals 15 units 24 Jun, 2017 Active Lantus 100 UNIT/ML Subcutaneous 2 times a day 25 units 12h 14 Mar, 2016 Active RESULTS No [...] stents to the right coronary artery by [facility] 05/31/17 Hospitalization History ER Visit for increased heart rate and elevated blood sugar 08/2015 Hospitalization History Had tooth extracted and became septic, was in hospital for several days. 1999 Hospitalization History [facility] discharge dx PAD,CAD, and SVT. Pt has f/u scheduled with 06/0205/31/2016
--- OUTSIDE RECORDS SUMMARY | 2018-03-19 17:07 | XMS REPORT ---
Author Author ESTRELLITA PANDYA [facility] Address [address] [place] [address] Care Team Providers Care [facility] Programmer Name Role Phone ESTRELLITA PANDYA Unavailable PROBLEMS Type Condition ICD9-CM Code ZMB94-RH Code Onset Dates Condition Status SNOMED Code Problem Abscess L02.91 Active 526601459 Problem PAD (peripheral artery disease) I73.9 Active 536402069 Problem Hypertension, unspecified type I10 Active 59912450 Problem 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 36995169 Problem Hypercholesteremia E78.0 Active 77441001 Problem Hydrocele, unspecified hydrocele type N43.3 Active 85412167 Problem Mixed hyperlipidemia E78.2 Active 285469303 Problem Degenerative disc disease, lumbar M51.36 Active 70436696 Problem Chronic ischemic heart disease I25.9 Active 202556322 Problem Chronic GERD K21.9 Active 411222209 Problem Chronic obstructive pulmonary disease, unspecified COPD type J44.9 Active 79377062 Problem Hematochezia K92.1 Active [id number] ALLERGIES No Information ENCOUNTERS Encounter Location Date Diagnosis [place] [id number] [place] [address] Jan, Type 2 diabetes 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 ; Mixed hyperlipidemia E78.2 ; Chronic obstructive pulmonary disease, unspecified COPD type J44.9 ; Hematochezia K92.1 and Degenerative disc disease, lumbar M51.36 [facility] [address] [id number] [id number] Jan, Chronic ischemic heart disease I25.9 [facility] [id number] [address] Jan, PAD (peripheral artery disease) I73.9 and Type 2 diabetes 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 [place] [address] [address] Dec, Type 2 diabetes 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 ; Hematochezia K92.1 ; PAD (peripheral artery disease) I73.9 ; Chronic ischemic heart disease I25.9 and Weakness of left lower extremity R29.898 [facility] [address] [address] Dec, Type 2 diabetes 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 [facility] [address] [address] Nov, Type 2 diabetes 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 and PAD (peripheral artery disease) I73.9 [facility] [address] [address] Oct, Type 2 diabetes 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 [address] [id number] Oct, Type 2 diabetes 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 [facility] [address], [place] [address] Oct, Type 2 diabetes 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 and Chronic GERD K21.9 [facility] [address] [address] Oct, Chronic GERD K21.9 [facility] [address] [address] Sep, [facility] [address] [address] Sep, [facility] [address] [address] Sep, Type 2 diabetes 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 [facility] [address], [place] [address] Aug, [facility] [address] [address] Aug, [facility] [id number] [place] [address] Aug, [facility] [id number] [place] [address]- [address] Aug, Type 2 diabetes 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 [facility] [id number] [place] [address] Jul, Type 2 diabetes 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 ; Chronic GERD K21.9 ; Hypercholesteremia E78.0 and PAD (peripheral artery disease) I73.9 [place] [address] [place] [address]- [address] Jul, Type 2 diabetes 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 [place] [id number] [place] [address] Jul, [id number] [place] [address] [id number] Jul, [place] [id number] [place] [address] Jul, Type 2 diabetes 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 [place] [address] [place] [address]- [address] Jul, [address] [place] [address] [id number] Jul, Mixed hyperlipidemia E78.2 ; Hypertension, unspecified type I10 ; PAD ( peripheral artery disease) I73.9 and Chronic ischemic heart disease I25.9 [facility] [id number] [place] [address]- [address] Jun, Type 2 diabetes 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 [facility] [address] [place] [address]20- [address] Jun, Type 2 diabetes 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 [place] [address] [id number] Jun, [facility] [id number] [place] [address]- [address] Jun, Type 2 diabetes 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 ; PAD (peripheral artery disease) I73.9 ; Hypercholesteremia E78.0 and Hypertension, unspecified type I10 [facility] [id number] [place] [address] [id number] Jun, Type 2 diabetes 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 [facility] [id number] [place] [address]- [address] May, [facility] [id number] [place] [address] 253339- 75[address] May, [facility] [id number] [place] [address] [id number] Apr, Abscess L02.91 [facility] [id number] [place] [address] [id number] Apr, [facility] [id number] [place] [address] [id number] Apr, Dental caries K02.9 and Dental examination Z01.20 [facility] [id number] [place] [address] [id number] Apr, Type 2 diabetes 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 [facility] [id number] [place] [address] [id number] Mar, Type 2 diabetes 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 [facility] [id number] [place] [address] [id number] Mar, Abscess L02.91 and Type 2 diabetes 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 [facility] [id number] [place] [address] [id number] February, Abscess L02.91 [facility] [id number] [place] [address] [id number] Jan, [facility] [id number] [place] [address] [id number] Jan, Type 2 diabetes 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 [facility] [id number] [place] [address] [id number] Jan, [facility] [id number] [place] [address] [id number] Jan, Abscess L02.91 [facility] [id number] [place] [address] [id number] Dec, Type 2 diabetes 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 [facility] [id number] [place] [address] [id number] Nov, Type 2 diabetes 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 [facility] [id number] [place] [address] [id number] Oct, Type 2 diabetes 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 [facility] [id number] [place] [address] [id number] Oct, Type 2 diabetes 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 [facility] [id number] [place] [address] [id number] Oct, Type 2 diabetes 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 and Hydrocele , unspecified hydrocele type N43.3 [facility] [id number] [place] [address] [id number] Sep, Enlarged testicle N50.89 [facility] [id number] [place] [address] [id number] Sep, Enlarged testicle N50.89 [facility] [id number] [place] [address] [id number] Sep, Type 2 diabetes 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 [facility] [id number] [place] [address] [id number] Sep, [facility] [id number] [place] [address] [id number] Aug, Dyspepsia R10.13 and Type 2 diabetes 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 [facility] [id number] [place] [address] [id number] Jul, [facility] [address] [id number] [id number] Jul, Type 2 diabetes 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 and Dyspepsia R10.13 [facility] [address] [id number] [id number] Jun, [facility] [id number] [place] [address] [id number] Jun, [facility] [id number] [place] [address] [id number] Jun, Type 2 diabetes 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 and Boils L02.92 [facility] [place] [id number] [place] [address] [id number] May, Type 2 diabetes 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 [facility] [place] [address] [id number] [id number] May, Type 2 diabetes 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 and Bloating R14.0 [facility] [place] [address] [id number] [id number] Apr, [facility] [address] [id number] [id number] Apr, [facility] [place] [address] [id number][place] [phone] Apr, Type 2 diabetes 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 [facility] [address] [id number] [id number] Mar, [facility] [address] [id number][place] [id number] Mar, Type 2 diabetes 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 [facility] [address] [id number][place] [id number] February, Type 2 diabetes 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 [facility] [place] [address] [id number] [phone] February, Type 2 diabetes 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 [facility] [address] [id number][place] [id number] February, Type 2 diabetes 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 and Hypercholesteremia E78.0 [facility] [address] [facility] [id number] [place] [id number] Jan, Type 2 diabetes 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 [facility] [address] [facility] [id number] [place] [id number] Jan, Type 2 diabetes 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 IMMUNIZATIONS No Known Immunizations SOCIAL HISTORY Never Assessed REASON FOR VISIT Repository medication PLAN OF CARE VITAL SIGNS MEDICATIONS No Known Medications RESULTS No Results PROCEDURES No Known [...] Surgical History Heart cath, abdominal aortagram, PTCA / 3 stents to the right coronary artery by [facility] 05/31/17 Hospitalization History ER Visit for increased heart rate and elevated blood sugar 08/2015 Hospitalization History Had tooth extracted and became septic, was in hospital for several days. 1999 Hospitalization History [facility] discharge dx PAD,CAD, and SVT. Pt has f/u scheduled with 06/0205/31/2016
--- OUTSIDE RECORDS SUMMARY | 2018-03-19 17:08 | XMS REPORT ---
Author Author NICOLE HUDSON [facility] Address [address] [place] [address] Care Team Providers Care Integrated Specialist Name Role Phone NICOLE HUDSON Unavailable PROBLEMS Type Condition ICD9-CM Code AIB29-GD Code Onset Dates Condition Status SNOMED Code Problem PAD (peripheral artery disease) I73.9 Active 043434712 Problem Chronic GERD K21.9 Active 226559420 Problem Hypertension, unspecified type I10 Active 92237659 Problem 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 06877750 Problem Hypercholesteremia E78.0 Active 58647802 Problem Hydrocele, unspecified hydrocele type N43.3 Active 32315386 Problem Abscess L02.91 Active 908889862 Problem COPD exacerbation J44.1 Active 757023726 Problem Degenerative disc disease, lumbar M51.36 Active 83591719 Problem Hematochezia K92.1 Active 691699057970845 Problem Chronic ischemic heart disease I25.9 Active 607589695 Problem Mixed hyperlipidemia E78.2 Active 193653583 Problem Chronic obstructive pulmonary disease, unspecified COPD type J44.9 Active 84296836 ALLERGIES No Information ENCOUNTERS Encounter Location Date Diagnosis [place] [id number] [address] February, COPD exacerbation J44.1 [facility] [address], [place] [address] February, [place] [address] [place] [id number] [place] [address] February, [place] [address], [place] [address] February, Type 2 diabetes 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 and Chronic obstructive pulmonary disease, unspecified COPD type J44.9 [place] [address], [place] [address] February, [place] [address] [place] [id number] [place] [address]1970[address] Jan, Type 2 diabetes 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 and Chronic GERD K21.9 [place] [address] [place] [id number] [place] [address]17- [address] Jan, Type 2 diabetes 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 ; Mixed hyperlipidemia E78.2 ; Chronic obstructive pulmonary disease, unspecified COPD type J44.9 ; Hematochezia K92.1 and Degenerative disc disease, lumbar M51.36 [place] [id number] [place] [id number] Jan, Chronic ischemic heart disease I25.9 [place] [address] [place] [id number] [place] [address]995- [address] Jan, PAD (peripheral artery disease) I73.9 and Type 2 diabetes 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 [place] [address] [place] [id number] [place] [address] 28249- 97[address] Dec, Type 2 diabetes 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 ; Hematochezia K92.1 ; PAD (peripheral artery disease) I73.9 ; Chronic ischemic heart disease I25.9 and Weakness of left lower extremity R29.898 [place] [id number] [place] [address] Dec, Type 2 diabetes 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 [place] [address] [place] [id number] [place] [address] 47092- 3919 Nov, Type 2 diabetes 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 and PAD (peripheral artery disease) I73.9 [place] [address] [place] [address] 50120- 4461 Oct, Type 2 diabetes 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 [place] [address] [id number] Oct, Type 2 diabetes 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 [facility] [address] [place] [address]1101- 20[address] Oct, Type 2 diabetes 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 and Chronic GERD K21.9 [facility] [address] [place] [id number] [place] [address] 25243- 0546 Oct, Chronic GERD K21.9 [facility] [address] [address] [id number] [place] [address] 97169- 6845 Sep, [facility] [address] [address] [id number] [place] [address] 80583- 4382 Sep, [facility] [address] [place] [id number] [place] [address] 94307- 0415 Sep, Type 2 diabetes 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 [facility] [address] [place] [id number] [place] [address] 57574- 3535 Aug, [facility] [address] [address] [id number] [place] [address] 45569- 3516 Aug, [facility] [address] [address] [id number] [place] [address] 66816- 2416 Aug, [facility] [address] [place] [address] [id number] [place] [address] 15246- 0736 Aug, Type 2 diabetes 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 [facility] [address] [address] [id number] [place] [address] 51279- 4844 Jul, Type 2 diabetes 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 ; Chronic GERD K21.9 ; Hypercholesteremia E78.0 and PAD (peripheral artery disease) I73.9 [facility] [address] [place] [id number] [place] [address] 82793- 3572 Jul, Type 2 diabetes mellitus with diabetic polyneuropathy E11.42 [facility] [address] [place] [id number] [place] [address] 01715- 7633 Jul, [facility] [id number] [id number] Jul, [facility] [address] [place] [id number] [place] [address] 60676- 0233 Jul, Type 2 diabetes mellitus with diabetic polyneuropathy E11.42 [facility] [address] [place] [address] [id number] [place] [address] 03479- 3426 Jul, [facility] [address] [place] [id number] [place] [address] [phone] Jul, Mixed hyperlipidemia E78.2 ; Hypertension, unspecified type I10 ; PAD ( peripheral artery disease) I73.9 and Chronic ischemic heart disease I25.9 [facility] [address] [place] [id number] [place] [address] 69385- 7841 Jun, Type 2 diabetes mellitus with diabetic polyneuropathy E11.42 [place] [address] [place] [id number] [place] [address] 91845- 8598 Jun, Type 2 diabetes mellitus with diabetic polyneuropathy E11.42 [facility] [address] [place] [address] [phone] Jun, [facility] [address] [place] [id number] [place] [address] 24903- 6583 Jun, Type 2 diabetes mellitus with diabetic polyneuropathy E11.42 ; PAD (peripheral artery disease) I73.9 ; Hypercholesteremia E78.0 and Hypertension, unspecified type I10 [facility] [address] [place] [address] [phone] Jun, Type 2 diabetes mellitus with diabetic polyneuropathy E11.42 [facility] [address] [place] [address] 29973- 4265 May, [facility] [address] [place] [id number] [place] [address] 40556- 2106 May, [facility] [address] [place] [address] [id number] Apr, Abscess L02.91 [facility] [address] [place] [id number] [place] [address] [phone] Apr, [facility] [address] [id number] [id number] Apr, Dental caries K02.9 and Dental examination Z01.[address] [facility] [address] [id number] [place] [id number] Apr, Type 2 diabetes mellitus with diabetic polyneuropathy E11.[address] [facility] [address] [id number] [place] [id number] Mar, Type 2 diabetes mellitus with diabetic polyneuropathy E11.[address] [facility] [id number] [place] [id number] Mar, Abscess L02.91 and Type 2 diabetes mellitus with diabetic polyneuropathy E11.[address] [facility] [id number] [place] [id number] February, Abscess L02.[address] [id number] [place] [phone] Jan, [facility] [address] [id number] [place] [id number] Jan, Type 2 diabetes mellitus with diabetic polyneuropathy E11.[address] [id number] [place] [id number] Jan, [facility] [address] [id number] [place] [phone] Jan, Abscess L02.[address] [id number] [place] [id number] Dec, Type 2 diabetes mellitus with diabetic polyneuropathy E11.[address] [id number] [place] [phone] Nov, Type 2 diabetes mellitus with diabetic polyneuropathy E11.[address] [id number] [place] [id number] Oct, Type 2 diabetes mellitus with diabetic polyneuropathy E11.[address] [id number] [place] [id number] Oct, Type 2 diabetes mellitus with diabetic polyneuropathy E11.[id number] [place] [address] [id number] Oct, Type 2 diabetes mellitus with diabetic polyneuropathy E11.42 and Hydrocele , unspecified hydrocele type N43.3 [facility] [address] [place] [id number] [place] [address] [id number] Sep, Enlarged testicle N50.89 [facility] [id number] [place] [address] [phone] Sep, Enlarged testicle N50.89 [facility] [address] [place] [id number] [place] [address] [id number] Sep, Type 2 diabetes mellitus with diabetic polyneuropathy E11.42 [facility] [address] [place] [id number] [place] [address] [id number] Sep, [facility] [address] [address] [id number] [place] [address] [id number] Aug, Dyspepsia R10.13 and Type 2 diabetes mellitus with diabetic polyneuropathy E11.42 [facility] [address] [address] [id number] [place] [address] [id number] Jul, [facility] [address] [address] [id number] [place] [address] [id number] Jul, Type 2 diabetes mellitus with diabetic polyneuropathy E11.42 and Dyspepsia R10.13 [facility] [address] [id number] [place] [address] [id number] Jun, [facility] [id number] [place] [address] [id number] Jun, [facility] [address] [place] [address] [id number] [place] [address] [phone] Jun, Type 2 diabetes mellitus with diabetic polyneuropathy E11.42 and Boils L02.92 [facility] [address] [address] [id number] [place] [address] [id number] May, Type 2 diabetes mellitus with diabetic polyneuropathy E11.42 [facility] [address] [address] [id number] [place] [address] [id number] May, Type 2 diabetes mellitus with diabetic polyneuropathy E11.42 and Bloating R14.0 [facility] [address] [address] [id number] [place] [address] [phone] Apr, [facility] [address] [id number] [phone] Apr, [facility] [id number] [phone] Apr, Type 2 diabetes mellitus with diabetic polyneuropathy E11.42 [facility] [address] [id number] [id number] Mar, [facility] [place] [id number] [place] [address] [id number] Mar, Type 2 diabetes mellitus with diabetic polyneuropathy E11.42 [facility] [id number] [place] [address] [id number] February, Type 2 diabetes mellitus with diabetic polyneuropathy E11.42 [facility] [id number] [phone] February, Type 2 diabetes mellitus with diabetic polyneuropathy E11.42 [facility] [id number] [place] [address] [id number] February, Type 2 diabetes mellitus with diabetic polyneuropathy E11.42 and Hypercholesteremia E78.0 [facility] [id number] [place] [address] [phone] Jan, Type 2 diabetes mellitus with diabetic polyneuropathy E11.42 [facility] [id number] [phone] Jan, Type 2 diabetes mellitus with diabetic polyneuropathy E11.42 IMMUNIZATIONS No Known Immunizations SOCIAL HISTORY Never Assessed REASON FOR VISIT Eye Exam PLAN OF CARE VITAL SIGNS MEDICATIONS Unknown [...] to the right coronary artery by Dr.Marji HERNANDEZ 05/31/17 Hospitalization History ER Visit for increased heart rate and elevated blood sugar 08/2015 Hospitalization History Had tooth extracted and became septic, was in hospital for several days. 1999 Hospitalization History H discharge dx PAD,CAD, and SVT. Pt has f/u scheduled with 06/0205/31/2016
--- OUTSIDE RECORDS SUMMARY | 2018-03-19 17:08 | XMS REPORT ---
Author Author ESTRELLITA PANDYA [facility] Address [address] [place] [address] Care Team Providers Care Superintendent Maintenance Name Role Phone ESTRELLITA PANDYA Unavailable PROBLEMS Type Condition ICD9-CM Code FSN78-VM Code Onset Dates Condition Status SNOMED Code Problem Abscess L02.91 Active 921537903 Problem PAD (peripheral artery disease) I73.9 Active 567661431 Problem Hypertension, unspecified type I10 Active 35491460 Problem 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 29750520 Problem Hypercholesteremia E78.0 Active 81511054 Problem Hydrocele, unspecified hydrocele type N43.3 Active 70280365 Problem Mixed hyperlipidemia E78.2 Active 174103986 Problem Degenerative disc disease, lumbar M51.36 Active 67415243 Problem Chronic ischemic heart disease I25.9 Active 961086083 Problem Chronic GERD K21.9 Active 134070937 Problem Chronic obstructive pulmonary disease, unspecified COPD type J44.9 Active 76928227 Problem Hematochezia K92.1 Active [id number] ALLERGIES No Information ENCOUNTERS Encounter Location Date Diagnosis [facility] [address] [address] Jan, Type 2 diabetes mellitus with diabetic polyneuropathy E11.42 and Chronic GERD K21.9 [facility] [address] [address] Jan, Type 2 diabetes mellitus with diabetic polyneuropathy E11.42 ; Mixed hyperlipidemia E78.2 ; Chronic obstructive pulmonary disease, unspecified COPD type J44.9 ; Hematochezia K92.1 and Degenerative disc disease, lumbar M51.36 [facility] [address] [id number] [id number] Jan, Chronic ischemic heart disease I25.9 [facility] [address] [address] Jan, PAD (peripheral artery disease) I73.9 and Type 2 diabetes mellitus with diabetic polyneuropathy E11.42 [place] [address] [place] [address] Dec, Type 2 diabetes mellitus with diabetic polyneuropathy E11.42 ; Hematochezia K92.1 ; PAD (peripheral artery disease) I73.9 ; Chronic ischemic heart disease I25.9 and Weakness of left lower extremity R29.898 [place] [address] [address] Dec, Type 2 diabetes mellitus with diabetic polyneuropathy E11.42 [place] [id number] [place] [address] Nov, Type 2 diabetes mellitus with diabetic polyneuropathy E11.42 and PAD (peripheral artery disease) I73.9 [place] [address] [address] Oct, Type 2 diabetes mellitus with diabetic polyneuropathy E11.42 [address] [id number] Oct, Type 2 diabetes mellitus with diabetic polyneuropathy E11.42 [place] [address] [address] Oct, Type 2 diabetes mellitus with diabetic polyneuropathy E11.42 and Chronic GERD K21.9 [place] [address] [address] Oct, Chronic GERD K21.9 [place] [address] [address] Sep, [place] [address] [address] Sep, [place] [address] [place] [address] Sep, Type 2 diabetes mellitus with diabetic polyneuropathy E11.42 [facility] [address] [address] Aug, [facility] [id number] [place] [address] Aug, [facility] [address] [address] Aug, [facility] [id number] [place] [address] Aug, Type 2 diabetes mellitus with diabetic polyneuropathy E11.42 [facility] [id number] [place] [address] Jul, Type 2 diabetes mellitus with diabetic polyneuropathy E11.42 ; Chronic GERD K21.9 ; Hypercholesteremia E78.0 and PAD (peripheral artery disease) I73.9 [facility] [address] [place] [address]- [address] Jul, Type 2 diabetes mellitus with diabetic polyneuropathy E11.42 [facility] [address] [place] [address] Jul, [address] [place] [id number] Jul, [facility] [address] [address] Jul, Type 2 diabetes mellitus with diabetic polyneuropathy E11.42 [facility] [address] [address] Jul, [address] [place] [id number] Jul, Mixed hyperlipidemia E78.2 ; Hypertension, unspecified type I10 ; PAD ( peripheral artery disease) I73.9 and Chronic ischemic heart disease I25.9 [facility] [address] [address] Jun, Type 2 diabetes mellitus with diabetic polyneuropathy E11.42 [facility] [address] [place] [address]- [address] Jun, Type 2 diabetes mellitus with diabetic polyneuropathy E11.42 [facility] [id number] [place] [address] [id number] Jun, [facility] [id number] [place] [address] Jun, Type 2 diabetes mellitus with diabetic polyneuropathy E11.42 ; PAD (peripheral artery disease) I73.9 ; Hypercholesteremia E78.0 and Hypertension, unspecified type I10 [facility] [id number] [place] [address] [id number] Jun, Type 2 diabetes mellitus with diabetic polyneuropathy E11.42 [facility] [id number] [place] [address] May, [facility] [address] [address] May, [facility] [id number] [place] [id number] Apr, Abscess L02.91 [facility] [id number] [place] [id number] Apr, [facility] [id number] [place] [id number] Apr, Dental caries K02.9 and Dental examination Z01.20 [facility] [id number] [place] [address] [id number] Apr, Type 2 diabetes mellitus with diabetic polyneuropathy E11.42 [facility] [id number] [place] [address] [id number] Mar, Type 2 diabetes mellitus with diabetic polyneuropathy E11.42 [facility] [id number] [place] [address] [id number] Mar, Abscess L02.91 and Type 2 diabetes mellitus with diabetic polyneuropathy E11.42 [facility] [id number] [place] [address] [id number] February, Abscess L02.91 [facility] [address] [id number] [id number] Jan, [facility] [address] [id number] [place] [id number] Jan, Type 2 diabetes mellitus with diabetic polyneuropathy E11.42 [facility] [address] [id number] [place] [phone] Jan, [facility] [id number] [place] [address] [id number] Jan, Abscess L02.91 [facility] [id number] [place] [address] [id number] Dec, Type 2 diabetes mellitus with diabetic polyneuropathy E11.[address] [facility] [id number] [place] [address] [id number] Nov, Type 2 diabetes mellitus with diabetic polyneuropathy E11.42 [facility] [id number] [place] [address] [id number] Oct, Type 2 diabetes mellitus with diabetic polyneuropathy E11.[address] [id number] [place] [address] [id number] Oct, Type 2 diabetes mellitus with diabetic polyneuropathy E11.42 [facility] [id number] [place] [address] [id number] Oct, Type 2 diabetes mellitus with diabetic polyneuropathy E11.42 and Hydrocele , unspecified hydrocele type N43.3 [facility] [address] [id number] [id number] Sep, Enlarged testicle N50.89 [facility] [address] [id number] [phone] Sep, Enlarged testicle N50.89 [facility] [address] [id number] [place] [address] [id number] Sep, Type 2 diabetes mellitus with diabetic polyneuropathy E11.42 [facility] [address] [id number] [id number] Sep, [facility] [id number] [place] [address] [id number] Aug, Dyspepsia R10.13 and Type 2 diabetes mellitus with diabetic polyneuropathy E11.42 [facility] [address] [id number] [id number] Jul, [facility] [address] [id number] [place] [address] [id number] Jul, Type 2 diabetes mellitus with diabetic polyneuropathy E11.42 and Dyspepsia R10.13 [facility] [id number] [place] [address] [id number] Jun, [facility] [address] [id number] [id number] Jun, [facility] [id number] [place] [address] [id number] Jun, Type 2 diabetes mellitus with diabetic polyneuropathy E11.42 and Boils L02.92 [facility] [id number] [place] [address] [id number] May, Type 2 diabetes mellitus with diabetic polyneuropathy E11.42 [facility] [address] [id number] [phone] May, Type 2 diabetes mellitus with diabetic polyneuropathy E11.42 and Bloating R14.0 [facility] [address] [id number][place] [phone] Apr, [facility] [address] [id number] [id number] Apr, [facility] [address] [id number][place] [id number] Apr, Type 2 diabetes mellitus with diabetic polyneuropathy E11.42 [facility] [address] [id number][place] [id number] Mar, [facility] [address] [id number][place] [id number] Mar, Type 2 diabetes mellitus with diabetic polyneuropathy E11.42 [facility] [address] [id number], [place] [id number] February, Type 2 diabetes mellitus with diabetic polyneuropathy E11.42 [facility] [address] [id number][place] [id number] February, Type 2 diabetes mellitus with diabetic polyneuropathy E11.42 [facility] 120 [facility] [id number] [place] [phone] February, Type 2 diabetes mellitus with diabetic polyneuropathy E11.42 and Hypercholesteremia E78.0 [facility] 120 [facility] [id number] [place] [phone] Jan, Type 2 diabetes mellitus with diabetic polyneuropathy E11.42 [facility] 120 [facility] [id number][place] [phone] Jan, Type 2 diabetes mellitus with diabetic polyneuropathy E11.42 IMMUNIZATIONS No Known Immunizations SOCIAL HISTORY Never Assessed REASON FOR VISIT Refill Requests PLAN OF CARE VITAL SIGNS MEDICATIONS Medication Instructions Dosage Frequency Start Date End Date Duration Status Pantoprazole Sodium 20 mg Orally Once a day 1 tablet 24h May, 30 day(s) Active MetFORMIN HCl ER 500 mg Orally twice a day 2 tabs 12h Jul, 30 days Active Metoprolol Succinate ER 25 MG Orally Once a day 1 tablet 24h Jun, 90 days Active Gabapentin 600 MG Orally 3 times a day 1 capsule am, noon, 2 hs 8h Jan, days Active RESULTS No Results PROCEDURES No [...] stents to the right coronary artery by [facility] 05/31/17 Hospitalization History ER Visit for increased heart rate and elevated blood sugar 08/2015 Hospitalization History Had tooth extracted and became septic, was in hospital for several days. 1999 Hospitalization History [facility] discharge dx PAD,CAD, and SVT. Pt has f/u scheduled with 06/0205/31/2016
--- OUTSIDE RECORDS SUMMARY | 2018-03-19 17:08 | XMS REPORT ---
Author Author ESTRELLITA PANDYA [facility] Address [address] [place] [address] Care Team Providers Care Financial Services Specialist Name Role Phone ESTRELLITA PANDYA Unavailable PROBLEMS Type Condition ICD9-CM Code PME64-FV Code Onset Dates Condition Status SNOMED Code Problem Abscess L02.91 Active 412799567 Problem PAD (peripheral artery disease) I73.9 Active 421478418 Problem Hypertension, unspecified type I10 Active 10754429 Problem 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 95112838 Problem Hypercholesteremia E78.0 Active 57520865 Problem Hydrocele, unspecified hydrocele type N43.3 Active 15571665 Problem Mixed hyperlipidemia E78.2 Active 678526504 Problem Degenerative disc disease, lumbar M51.36 Active 62205436 Problem Chronic ischemic heart disease I25.9 Active 512757227 Problem Chronic GERD K21.9 Active 338781592 Problem Chronic obstructive pulmonary disease, unspecified COPD type J44.9 Active 24570925 Problem Hematochezia K92.1 Active [id number] ALLERGIES No Information ENCOUNTERS Encounter Location Date Diagnosis [facility] [address], [place] [address] Jan, Type 2 diabetes mellitus with diabetic polyneuropathy E11.42 and Chronic GERD K21.9 [facility] [address], [place] [address] Jan, Type 2 diabetes mellitus with diabetic polyneuropathy E11.42 ; Mixed hyperlipidemia E78.2 ; Chronic obstructive pulmonary disease, unspecified COPD type J44.9 ; Hematochezia K92.1 and Degenerative disc disease, lumbar M51.36 [facility] [address] [id number] [id number] Jan, Chronic ischemic heart disease I25.9 [facility] [address], [place] [address] Jan, PAD (peripheral artery disease) I73.9 and Type 2 diabetes mellitus with diabetic polyneuropathy E11.42 [address] [place] [address] Dec, Type 2 diabetes mellitus with diabetic polyneuropathy E11.42 ; Hematochezia K92.1 ; PAD (peripheral artery disease) I73.9 ; Chronic ischemic heart disease I25.9 and Weakness of left lower extremity R29.898 [place] [address], [place] [address] Dec, Type 2 diabetes mellitus with diabetic polyneuropathy E11.42 [place] [id number] [place] [address] Nov, Type 2 diabetes mellitus with diabetic polyneuropathy E11.42 and PAD (peripheral artery disease) I73.9 [place] [address] [address] Oct, Type 2 diabetes mellitus with diabetic polyneuropathy E11.42 [address] [id number] Oct, Type 2 diabetes mellitus with diabetic polyneuropathy E11.42 [place] [address], [place] [address] Oct, Type 2 diabetes mellitus with diabetic polyneuropathy E11.42 and Chronic GERD K21.9 [place] [address], [place] [address] Oct, Chronic GERD K21.9 [place] [address], [place] [address] Sep, [place] [address] [address] Sep, [place] [address] [place] [address] Sep, Type 2 diabetes mellitus with diabetic polyneuropathy E11.42 [facility] [address], [place] [address] Aug, [facility] [id number] [place] [address] Aug, [facility] [address], [place] [address] Aug, [facility] [id number] [place] [address] Aug, Type 2 diabetes mellitus with diabetic polyneuropathy E11.42 [facility] [id number] [place] [address] 98[address] Jul, Type 2 diabetes mellitus with diabetic polyneuropathy E11.42 ; Chronic GERD K21.9 ; Hypercholesteremia E78.0 and PAD (peripheral artery disease) I73.9 [facility] [address] [place] [address] Jul, Type 2 diabetes mellitus with diabetic polyneuropathy E11.42 [facility] [id number] [place] [address]- [address] Jul, [address] [place] [id number] Jul, [facility] [address], [place] [address] Jul, Type 2 diabetes mellitus with diabetic polyneuropathy E11.42 [facility] [address], [place] [address] Jul, [address] [place] [address] [id number] Jul, Mixed hyperlipidemia E78.2 ; Hypertension, unspecified type I10 ; PAD ( peripheral artery disease) I73.9 and Chronic ischemic heart disease I25.9 [facility] [address], [place] [address] Jun, Type 2 diabetes mellitus with diabetic polyneuropathy E11.42 [facility] [address] [place] [address]- [address] Jun, Type 2 diabetes mellitus with diabetic polyneuropathy E11.42 [facility] [id number] [place] [id number] Jun, [facility] [id number] [place] [address]- [address] Jun, Type 2 diabetes mellitus with diabetic polyneuropathy E11.42 ; PAD (peripheral artery disease) I73.9 ; Hypercholesteremia E78.0 and Hypertension, unspecified type I10 [facility] [id number] [place] [address] [id number] Jun, Type 2 diabetes mellitus with diabetic polyneuropathy E11.42 [facility] [id number] [place] [address] May, [facility] [address] [address] May, [facility] [id number] [place] [id number] Apr, Abscess L02.91 [facility] [id number] [place] [address] [id number] Apr, [facility] [id number] [place] [address] [id number] Apr, Dental caries K02.9 and Dental examination Z01.20 [facility] [id number] [place] [address] [id number] Apr, Type 2 diabetes mellitus with diabetic polyneuropathy E11.42 [facility] [id number] [place] [address] [id number] Mar, Type 2 diabetes mellitus with diabetic polyneuropathy E11.42 [facility] [id number] [place] [address] [phone] Mar, Abscess L02.91 and Type 2 diabetes mellitus with diabetic polyneuropathy E11.42 [facility] [id number] [place] [address] [phone] February, Abscess L02.91 [facility] [address] [id number] [id number] Jan, [facility] [address] [id number] [place] [id number] Jan, Type 2 diabetes mellitus with diabetic polyneuropathy E11.42 [facility] [address] [id number] [place] [id number] Jan, [facility] [id number] [place] [address] [id number] Jan, Abscess L02.91 [facility] [id number] [place] [address] [id number] Dec, Type 2 diabetes mellitus with diabetic polyneuropathy E11.[address] [facility] [id number] [place] [address] [id number] Nov, Type 2 diabetes mellitus with diabetic polyneuropathy E11.42 [facility] [id number] [place] [address] [id number] Oct, Type 2 diabetes mellitus with diabetic polyneuropathy E11.[address] [facility] [address] [id number] [place] [address] [id number] Oct, Type 2 diabetes mellitus with diabetic polyneuropathy E11.42 [facility] [address] [id number] [place] [address] [id number] Oct, Type 2 diabetes mellitus with diabetic polyneuropathy E11.42 and Hydrocele , unspecified hydrocele type N43.3 [facility] [place] [address] [id number] [id number] Sep, Enlarged testicle N50.89 [facility] [place] [address] [id number] [place] [phone] Sep, Enlarged testicle N50.89 [facility] [place] [id number] [place] [address] [id number] Sep, Type 2 diabetes mellitus with diabetic polyneuropathy E11.42 [facility] [place] [address] [id number] [phone] Sep, [facility] [place] [place] [id number] [place] [address] [id number] Aug, Dyspepsia R10.13 and Type 2 diabetes mellitus with diabetic polyneuropathy E11.42 [facility] [address] [id number] [place] [id number] Jul, [facility] [address] [id number] [place] [address] [id number] Jul, Type 2 diabetes mellitus with diabetic polyneuropathy E11.42 and Dyspepsia R10.13 [facility] [id number] [place] [address] [id number] Jun, [facility] [address] [id number] [place] [id number] Jun, [facility] [address] [id number] [place] [address] [id number] Jun, Type 2 diabetes mellitus with diabetic polyneuropathy E11.42 and Boils L02.92 [facility] [place] [id number] [place] [address] [id number] May, Type 2 diabetes mellitus with diabetic polyneuropathy E11.42 [facility] [place] [address] [id number] [place] [phone] May, Type 2 diabetes mellitus with diabetic polyneuropathy E11.42 and Bloating R14.0 [facility] [place] [address] [id number] [place] [id number] Apr, [facility] [address] [id number] [phone] Apr, [facility] [place] [address] [id number] [phone] Apr, Type 2 diabetes mellitus with diabetic polyneuropathy E11.42 [facility] [place] [address] [id number] [place] [id number] Mar, [facility] [address] [id number] [place] [id number] Mar, Type 2 diabetes mellitus with diabetic polyneuropathy E11.42 [facility] [place] [address] [id number] [place] [id number] February, Type 2 diabetes mellitus with diabetic polyneuropathy E11.42 [facility] [place] [address] [id number] [place] [id number] February, Type 2 diabetes mellitus with diabetic polyneuropathy E11.42 [facility] [address] [facility] [id number] [place] [id number] February, Type 2 diabetes mellitus with diabetic polyneuropathy E11.42 and Hypercholesteremia E78.0 [facility] [address] [facility] [id number] [place] [phone] Jan, Type 2 diabetes mellitus with diabetic polyneuropathy E11.42 [facility] [address] [facility] [id number] [place] [id number] Jan, Type 2 diabetes mellitus with diabetic polyneuropathy E11.42 IMMUNIZATIONS No Known Immunizations SOCIAL HISTORY Never Assessed REASON FOR VISIT Lab (walk-in) per Dr. Zendejas--Andrew,RN PLAN OF CARE VITAL SIGNS MEDICATIONS Unknown Medications RESULTS No Results PROCEDURES Procedure Date Ordered Result Body Site LIPID PANEL Jul 22, 2017 VENIPUNCT, ROUTINE* Jul 22, 2017 INSTRUCTIONS MEDICATIONS ADMINISTERED No Known Medications MEDICAL [...] stents to the right coronary artery by [facility] 05/31/17 Hospitalization History ER Visit for increased heart rate and elevated blood sugar 08/2015 Hospitalization History Had tooth extracted and became septic, was in hospital for several days. 1999 Hospitalization History [facility] discharge dx PAD,CAD, and SVT. Pt has f/u scheduled with 06/0205/31/2016
--- OUTSIDE RECORDS SUMMARY | 2018-03-19 17:09 | XMS REPORT ---
Author Author ESTRELLITA PANDYA [facility] Address [address] [place] [address] Care Team Providers Care Drywall Hanger Framer Name Role Phone ESTRELLITA PANDYA Unavailable PROBLEMS Type Condition ICD9-CM Code ZHT98-ZM Code Onset Dates Condition Status SNOMED Code Problem Abscess L02.91 Active 910858470 Problem PAD (peripheral artery disease) I73.9 Active 527859880 Problem Hypertension, unspecified type I10 Active 15311788 Problem 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 51704890 Problem Hypercholesteremia E78.0 Active 95693942 Problem Hydrocele, unspecified hydrocele type N43.3 Active 20997633 Problem Mixed hyperlipidemia E78.2 Active 266282620 Problem Degenerative disc disease, lumbar M51.36 Active 15650381 Problem Chronic ischemic heart disease I25.9 Active 008509221 Problem Chronic GERD K21.9 Active 237435333 Problem Chronic obstructive pulmonary disease, unspecified COPD type J44.9 Active 04780317 Problem Hematochezia K92.1 Active [id number] ALLERGIES No Information ENCOUNTERS Encounter Location Date Diagnosis [facility] [address] [address] Jan, Type 2 diabetes mellitus with diabetic polyneuropathy E11.42 and Chronic GERD K21.9 [facility] [address], [place] [address] Jan, Type 2 diabetes mellitus with diabetic polyneuropathy E11.42 ; Mixed hyperlipidemia E78.2 ; Chronic obstructive pulmonary disease, unspecified COPD type J44.9 ; Hematochezia K92.1 and Degenerative disc disease, lumbar M51.36 [facility] [address] [id number] [id number] Jan, Chronic ischemic heart disease I25.9 [facility] [address], [place] [address] Jan, PAD (peripheral artery disease) I73.9 and Type 2 diabetes mellitus with diabetic polyneuropathy E11.42 [place] [place] [address] Dec, Type 2 diabetes mellitus with diabetic polyneuropathy E11.42 ; Hematochezia K92.1 ; PAD (peripheral artery disease) I73.9 ; Chronic ischemic heart disease I25.9 and Weakness of left lower extremity R29.898 [place] [address], [place] [address] Dec, Type 2 diabetes mellitus with diabetic polyneuropathy E11.42 [place] [id number] [place] [address] Nov, Type 2 diabetes mellitus with diabetic polyneuropathy E11.42 and PAD (peripheral artery disease) I73.9 [place] [address], [place] [address] Oct, Type 2 diabetes mellitus with diabetic polyneuropathy E11.42 [address] [id number] Oct, Type 2 diabetes mellitus with diabetic polyneuropathy E11.42 [place] [address], [place] [address] Oct, Type 2 diabetes mellitus with diabetic polyneuropathy E11.42 and Chronic GERD K21.9 [place] [address], [place] [address] Oct, Chronic GERD K21.9 [place] [address], [place] [address] Sep, [place] [address] [address] Sep, [place] [address] [place] [address] Sep, Type 2 diabetes mellitus with diabetic polyneuropathy E11.42 [facility] [address], [place] [address] Aug, [facility] [id number] [place] [address] Aug, [facility] [address], [place] [address] Aug, [facility] [id number] [place] [address] Aug, Type 2 diabetes mellitus with diabetic polyneuropathy E11.42 [facility] [id number] [place] [address] Jul, Type 2 diabetes mellitus with diabetic polyneuropathy E11.42 ; Chronic GERD K21.9 ; Hypercholesteremia E78.0 and PAD (peripheral artery disease) I73.9 [facility] [address] [place] [address] Jul, Type 2 diabetes mellitus with diabetic polyneuropathy E11.42 [facility] [id number] [place] [address] Jul, [id number] [place] [id number] Jul, [facility] [address], [place] [address] Jul, Type 2 diabetes mellitus with diabetic polyneuropathy E11.42 [facility] [address], [place] [address] Jul, [id number] [place] [phone] Jul, Mixed hyperlipidemia E78.2 ; Hypertension, unspecified type I10 ; PAD ( peripheral artery disease) I73.9 and Chronic ischemic heart disease I25.9 [facility] [address], [place] [address] Jun, Type 2 diabetes mellitus with diabetic polyneuropathy E11.42 [facility] [id number] [place] [address] Jun, Type 2 diabetes mellitus with diabetic polyneuropathy E11.42 [facility] [id number] [place] [id number] Jun, [facility] [id number] [place] [address]- [address] Jun, Type 2 diabetes mellitus with diabetic polyneuropathy E11.42 ; PAD (peripheral artery disease) I73.9 ; Hypercholesteremia E78.0 and Hypertension, unspecified type I10 [facility] [id number] [place] [address] [id number] Jun, Type 2 diabetes mellitus with diabetic polyneuropathy E11.42 [facility] [id number] [place] [address] May, [facility] [address] [address] May, [facility] [id number] [place] [address] [id number] Apr, Abscess L02.91 [facility] [id number] [place] [address] [id number] Apr, [facility] [id number] [place] [phone] Apr, Dental caries K02.9 and Dental examination Z01.20 [facility] [id number] [place] [address] [id number] Apr, Type 2 diabetes mellitus with diabetic polyneuropathy E11.42 [facility] [id number] [place] [address] [id number] Mar, Type 2 diabetes mellitus with diabetic polyneuropathy E11.42 [facility] [id number] [place] [address] [id number] Mar, Abscess L02.91 and Type 2 diabetes mellitus with diabetic polyneuropathy E11.42 [facility] [id number] [place] [address] [id number] February, Abscess L02.[address] [facility] [address] [id number] [id number] Jan, [facility] [address] [id number] [place] [id number] Jan, Type 2 diabetes mellitus with diabetic polyneuropathy E11.[address] [facility] [address] [id number] [place] [id number] Jan, [facility] [address] [id number] [place] [address] [id number] Jan, Abscess L02.[address] [facility] [id number] [place] [address] [id number] Dec, Type 2 diabetes mellitus with diabetic polyneuropathy E11.[address] [id number] [place] [address] [id number] Nov, Type 2 diabetes mellitus with diabetic polyneuropathy E11.[address] [facility] [address] [id number] [place] [address] [id number] Oct, Type 2 diabetes mellitus with diabetic polyneuropathy E11.[id number] [place] [address] [id number] Oct, Type 2 diabetes mellitus with diabetic polyneuropathy E11.[address] [facility] [id number] [place] [address] [id number] Oct, Type 2 diabetes mellitus with diabetic polyneuropathy E11.42 and Hydrocele , unspecified hydrocele type N43.3 [facility] [address] [id number] [place] [phone] Sep, Enlarged testicle N50.89 [facility] [address] [id number] [place] [id number] Sep, Enlarged testicle N50.89 [facility] [id number] [place] [address] [id number] Sep, Type 2 diabetes mellitus with diabetic polyneuropathy E11.42 [facility] [address] [id number] [place] [phone] Sep, [facility] [id number] [place] [address] [id number] Aug, Dyspepsia R10.13 and Type 2 diabetes mellitus with diabetic polyneuropathy E11.[address] [facility] [address] [id number] [place] [id number] Jul, [facility] [id number] [place] [address] [id number] Jul, Type 2 diabetes mellitus with diabetic polyneuropathy E11.42 and Dyspepsia R10.13 [facility] [id number] [place] [address] [id number] Jun, [facility] [address] [id number] [place] [phone] Jun, [facility] [address] [id number] [place] [address] [id number] Jun, Type 2 diabetes mellitus with diabetic polyneuropathy E11.42 and Boils L02.92 [facility] [id number] [place] [address] [id number] May, Type 2 diabetes mellitus with diabetic polyneuropathy E11.42 [facility] [address] [id number] [place] [phone] May, Type 2 diabetes mellitus with diabetic polyneuropathy E11.42 and Bloating R14.0 [facility] [address] [id number] [place] [phone] Apr, [facility] [address] [id number] [id number] Apr, [facility] [address] [id number] [place] [id number] Apr, Type 2 diabetes mellitus with diabetic polyneuropathy E11.42 [facility] [address] [id number] [place] [phone] Mar, [facility] [address] [id number] [place] [id number] Mar, Type 2 diabetes mellitus with diabetic polyneuropathy E11.42 [facility] [address] [id number] [place] [id number] February, Type 2 diabetes mellitus with diabetic polyneuropathy E11.42 [facility] [address] [id number] [place] [id number] February, Type 2 diabetes mellitus with diabetic polyneuropathy E11.42 [facility] [address] [facility] [id number] [place] [id number] February, Type 2 diabetes mellitus with diabetic polyneuropathy E11.42 and Hypercholesteremia E78.0 [facility] [address] [facility] [id number] [place] [id number] Jan, Type 2 diabetes mellitus with diabetic polyneuropathy E11.42 [facility] [address] [facility] [id number] [place] [phone] Jan, Type 2 diabetes mellitus with diabetic [...] stents to the right coronary artery by [facility] 05/31/17 Hospitalization History ER Visit for increased heart rate and elevated blood sugar 08/2015 Hospitalization History Had tooth extracted and became septic, was in hospital for several days. 1999 Hospitalization History [facility] discharge dx PAD,CAD, and SVT. Pt has f/u scheduled with 06/0205/31/2016
--- OUTSIDE RECORDS SUMMARY | 2018-03-19 17:09 | XMS REPORT ---
Author Author ESTRELLITA PANDYA Organization [facility] Address [address] [place] [address] Care Team Providers Care Tub Mender Name Role Phone ESTRELLITA PANDYA Unavailable PROBLEMS Type Condition ICD9-CM Code SIZ85-YV Code Onset Dates Condition Status SNOMED Code Problem Abscess L02.91 Active 426262828 Problem PAD (peripheral artery disease) I73.9 Active 810921225 Problem Hypertension, unspecified type I10 Active 40294291 Problem 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 78837326 Problem Hypercholesteremia E78.0 Active 27226596 Problem Hydrocele, unspecified hydrocele type N43.3 Active 45353516 Problem Mixed hyperlipidemia E78.2 Active 415914874 Problem Degenerative disc disease, lumbar M51.36 Active 46731671 Problem Chronic ischemic heart disease I25.9 Active 677525958 Problem Chronic GERD K21.9 Active 410988908 Problem Chronic obstructive pulmonary disease, unspecified COPD type J44.9 Active 68961815 Problem Hematochezia K92.1 Active [id number] ALLERGIES Substance Reaction Event Type Date Status Penicillin V Potassium rash Drug Allergy Jun, Active ENCOUNTERS Encounter Location Date Diagnosis [facility] [address] [facility] [id number] [address] Jan, Type 2 diabetes mellitus with diabetic polyneuropathy E11.42 ; Mixed hyperlipidemia E78.2 ; Chronic obstructive pulmonary disease, unspecified COPD type J44.9 ; Hematochezia K92.1 and Degenerative disc disease, lumbar M51.36 [facility] [address] [facility] [id number] [id number] Jan, Chronic ischemic heart disease I25.9 [facility] [address] [facility] [id number] [address] Jan, PAD (peripheral artery disease) I73.9 and Type 2 diabetes mellitus with diabetic polyneuropathy E11.42 [facility] [address] [address] Dec, Type 2 diabetes mellitus with diabetic polyneuropathy E11.42 ; Hematochezia K92.1 ; PAD (peripheral artery disease) I73.9 ; Chronic ischemic heart disease I25.9 and Weakness of left lower extremity R29.898 [facility] [address] [place] [address] Dec, Type 2 diabetes mellitus with diabetic polyneuropathy E11.42 [facility] [address] [place] [address] Nov, Type 2 diabetes mellitus with diabetic polyneuropathy E11.42 and PAD (peripheral artery disease) I73.9 [facility] [address] [address] Oct, Type 2 diabetes mellitus with diabetic polyneuropathy E11.42 [address] [id number] Oct, Type 2 diabetes mellitus with diabetic polyneuropathy E11.42 [place] [address] [place] [address]12- [address] Oct, Type 2 diabetes mellitus with diabetic polyneuropathy E11.42 and Chronic GERD K21.9 [facility] [address] [address] Oct, Chronic GERD K21.9 [facility] [address] [address] Sep, [facility] [address] [place] [address] Sep, [facility] [address] [place] [address] 60957[address] 5888 Sep, Type 2 diabetes mellitus with diabetic polyneuropathy E11.42 [facility] [address] [place] [address] Aug, [facility] [address] [address] Aug, [facility] [address] [place] [id number] [place] [address]36[address] Aug, [facility] [address] [place] [id number] [place] [address] 94808- 3989 Aug, Type 2 diabetes mellitus with diabetic polyneuropathy E11.42 [facility] [address] [place] [id number] [place] [address]60[address] Jul, Type 2 diabetes mellitus with diabetic polyneuropathy E11.42 ; Chronic GERD K21.9 ; Hypercholesteremia E78.0 and PAD (peripheral artery disease) I73.9 [place] [address] [place] [address] 16245- 5782 Jul, Type 2 diabetes mellitus with diabetic polyneuropathy E11.42 [place] [address] [place] [id number] [place] [address]2039- [address] Jul, [address] [place] [id number] Jul, [place] [address] [place] [id number] [place] [address]3536- 8952 Jul, Type 2 diabetes mellitus with diabetic polyneuropathy E11.42 [place] [address] [place] [address] 25722- 8[address] Jul, [place] [id number] [place] [address] [phone] Jul, Mixed hyperlipidemia E78.2 ; Hypertension, unspecified type I10 ; PAD ( peripheral artery disease) I73.9 and Chronic ischemic heart disease I25.9 [facility] [address] [address] Jun, Type 2 diabetes mellitus with diabetic polyneuropathy E11.42 [facility] [address] [place] [address] 21257- 9709 Jun, Type 2 diabetes mellitus with diabetic polyneuropathy E11.42 [facility] [address] [place] [id number] [place] [address] [id number] Jun, [facility] [address] [place] [id number] [place] [address] 20053- 8098 Jun, Type 2 diabetes mellitus with diabetic polyneuropathy E11.42 ; PAD (peripheral artery disease) I73.9 ; Hypercholesteremia E78.0 and Hypertension, unspecified type I10 [facility] [address] [place] [id number] [place] [address] [id number] Jun, Type 2 diabetes mellitus with diabetic polyneuropathy E11.42 [facility] [address] [address] May, [facility] [address] [place] [id number] [place] [address] 793359- [address] May, [facility] [address] [place] [address] [id number] [place] [address] [phone] Apr, Abscess L02.91 [facility] [address] [place] [id number] [place] [address] [id number] Apr, [facility] [address] [place] [id number] [place] [address] [phone] Apr, Dental caries K02.9 and Dental examination Z01.20 [facility] [id number] [place] [address] [id number] Apr, Type 2 diabetes mellitus with diabetic polyneuropathy E11.42 [facility] [address] [place] [id number] [place] [address] [id number] Mar, Type 2 diabetes mellitus with diabetic polyneuropathy E11.42 [facility] [id number] [place] [address] [id number] Mar, Abscess L02.91 and Type 2 diabetes mellitus with diabetic polyneuropathy E11.42 [facility] [address] [place] [address] [id number] [place] [address] [id number] February, Abscess L02.91 [facility] [address] [place] [address] [id number] [place] [address] [phone] Jan, [place] [address] [id number] [phone] Jan, Type 2 diabetes mellitus with diabetic polyneuropathy E11.42 [facility] [id number] [place] [address] [id number] Jan, [facility] [id number] [place] [address] [id number] Jan, Abscess L02.91 [facility] [id number] [place] [address] [id number] Dec, Type 2 diabetes mellitus with diabetic polyneuropathy E11.42 [facility] [address] [id number] [place] [phone] Nov, Type 2 diabetes mellitus with diabetic polyneuropathy E11.42 [facility] [address] [place] [address] [id number] [place] [address] [id number] Oct, Type 2 diabetes mellitus with diabetic polyneuropathy E11.42 [facility] [address] [place] [id number] [place] [address] [id number] Oct, Type 2 diabetes mellitus with diabetic polyneuropathy E11.42 [facility] [address] [place] [address] [id number] [place] [address] [id number] Oct, Type 2 diabetes mellitus with diabetic polyneuropathy E11.42 and Hydrocele , unspecified hydrocele type N43.3 [facility] [address] [place] [address] [id number] [place] [address] [id number] Sep, Enlarged testicle N50.89 [facility] [id number] [place] [address] [id number] Sep, Enlarged testicle N50.89 [facility] [id number] [place] [address] [id number] Sep, Type 2 diabetes mellitus with diabetic polyneuropathy E11.42 [facility] [id number] [place] [address] [id number] Sep, [facility] [address] [id number] [place] [address] [id number] Aug, Dyspepsia R10.13 and Type 2 diabetes mellitus with diabetic polyneuropathy E11.42 [facility] [id number] [id number] Jul, [facility] [address] [id number] [phone] Jul, Type 2 diabetes mellitus with diabetic polyneuropathy E11.42 and Dyspepsia R10.13 [facility] [address] [id number] [phone] Jun, [facility] [address] [id number] [phone] Jun, [facility] [id number] [place] [address] [id number] Jun, Type 2 diabetes mellitus with diabetic polyneuropathy E11.42 and Boils L02.92 [facility] [id number] [place] [address] [id number] May, Type 2 diabetes mellitus with diabetic polyneuropathy E11.42 [facility] [address] [id number][place] [phone] May, Type 2 diabetes mellitus with diabetic polyneuropathy E11.42 and Bloating R14.0 [facility] [address] [id number][place] [phone] Apr, [facility] [address] [phone] Apr, [facility] [address] [id number][place] [phone] Apr, Type 2 diabetes mellitus with diabetic polyneuropathy E11.42 [facility] [address] [id number][place] [phone] Mar, [facility] [address] [id number][place] [phone] Mar, Type 2 diabetes mellitus with diabetic polyneuropathy E11.42 [facility] [address] [id number], [place] [id number] February, Type 2 diabetes mellitus with diabetic polyneuropathy E11.42 [facility] [address] [id number][place] [phone] February, Type 2 diabetes mellitus with diabetic polyneuropathy E11.42 [facility] [address] [id number] [place] [phone] February, Type 2 diabetes mellitus with diabetic polyneuropathy E11.42 and Hypercholesteremia E78.0 [facility] [address] [facility] [id number] [place] [phone] Jan, Type 2 diabetes mellitus with diabetic polyneuropathy E11.42 [facility] [address] [facility] [id number] [place] [phone] Jan, Type 2 diabetes mellitus with diabetic polyneuropathy E11.42 IMMUNIZATIONS No Known Immunizations SOCIAL HISTORY Never Assessed REASON FOR VISIT Transition of Care--tcuppettRN, -Left foot pain, swelling, numbness even since having stent placement last month PLAN OF CARE Activity Details Follow Up 2 Months Reason:DMT/CAD VITAL SIGNS Height 66.0 in 2017-07-01 Weight 196.3 lbs 2017-07-01 Temperature 97.8 degrees Fahrenheit 2017-07-01 Heart Rate 80 bpm 2017-07-01 Respiratory Rate 20 2017-07-01 BMI 31.68 kg/m2 2017-07-01 Blood pressure systolic 112 mmHg 2017-07-01 Blood pressure diastolic 70 mmHg 2017-07-01 MEDICATIONS Medication Instructions Dosage Frequency Start Date End Date Duration Status Pantoprazole Sodium 20 mg Orally Once a day 1 tablet 24h May, 30 day(s) Active Gabapentin 600 MG Orally 3 times a day 1 capsule am, noon, 2 hs 8h Jan, Active Lantus 100 UNIT/ML Subcutaneous 2 times a day 53 units am 34 pm 12h Mar Active Accu-Chek Britt glucometer as directed Jan, Active MetFORMIN HCl ER 500 mg Orally twice a day 2 tabs 12h 10 Jul, 2016 30 days Active BD Pen Needle Nancy U/F BD PEN NEEDLE NANCY subcutaneous 2 times a day as directed 12h February, Active Lyrica 50 mg Orally Three times a day 1 capsule 8h Oct, Active Accu-Chek Britt Test Strips In Vitro 3 times a day as directed 8h Jan, 30 days Active Lisinopril 10 mg Orally Once a day 1 tablet 24h 60 days Active Crestor 40 mg Orally Once a day 1 tablet 24h 13 Jun, 2017 90 days Active Clopidogrel Bisulfate 75 MG Orally Once a day 1 tablet 24h Active BD Insulin Syringe 30G X 1/2 subcutaneously twice a day Inject 12h 05 Sep, 2017 15 days Active RESULTS No Results PROCEDURES No [...] stents to the right coronary artery by [facility] 05/31/17 Hospitalization History ER Visit for increased heart rate and elevated blood sugar 08/2015 Hospitalization History Had tooth extracted and became septic, was in hospital for several days. 1999 Hospitalization History [facility] discharge dx PAD,CAD, and SVT. Pt has f/u scheduled with 06/0205/31/2016
--- OUTSIDE RECORDS SUMMARY | 2018-03-19 17:09 | XMS REPORT ---
Author Author ESTRELLITA PANDYA [facility] Address [address] [place] [address] Care Team Providers Care Event Producer Name Role Phone ESTRELLITA PANDYA Unavailable PROBLEMS Type Condition ICD9-CM Code KZF28-VI Code Onset Dates Condition Status SNOMED Code Problem Abscess L02.91 Active 830986312 Problem PAD (peripheral artery disease) I73.9 Active 850394621 Problem Hypertension, unspecified type I10 Active 87873925 Problem 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 76373693 Problem Hypercholesteremia E78.0 Active 69622090 Problem Hydrocele, unspecified hydrocele type N43.3 Active 94399424 Problem Mixed hyperlipidemia E78.2 Active 261594567 Problem Degenerative disc disease, lumbar M51.36 Active 97633390 Problem Chronic ischemic heart disease I25.9 Active 566284782 Problem Chronic GERD K21.9 Active 298333629 Problem Chronic obstructive pulmonary disease, unspecified COPD type J44.9 Active 45122218 Problem Hematochezia K92.1 Active [id number] ALLERGIES No Information ENCOUNTERS Encounter Location Date Diagnosis [facility] [address], [place] [address] Jan, Type 2 diabetes mellitus with diabetic polyneuropathy E11.42 and Chronic GERD K21.9 [facility] [address], [place] [address] Jan, Type 2 diabetes mellitus with diabetic polyneuropathy E11.42 ; Mixed hyperlipidemia E78.2 ; Chronic obstructive pulmonary disease, unspecified COPD type J44.9 ; Hematochezia K92.1 and Degenerative disc disease, lumbar M51.36 [facility] [address] [id number] [id number] Jan, Chronic ischemic heart disease I25.9 [facility] [address], [place] [address] Jan, PAD (peripheral artery disease) I73.9 and Type 2 diabetes mellitus with diabetic polyneuropathy E11.42 [address] [address] [place] [address] Dec, Type 2 diabetes mellitus with diabetic polyneuropathy E11.42 ; Hematochezia K92.1 ; PAD (peripheral artery disease) I73.9 ; Chronic ischemic heart disease I25.9 and Weakness of left lower extremity R29.898 [place] [address], [place] [address] Dec, Type 2 diabetes mellitus with diabetic polyneuropathy E11.42 [place] [id number] [place] [address] Nov, Type 2 diabetes mellitus with diabetic polyneuropathy E11.42 and PAD (peripheral artery disease) I73.9 [place] [address], [place] [address] Oct, Type 2 diabetes mellitus with diabetic polyneuropathy E11.42 [address] [phone] Oct, Type 2 diabetes mellitus with diabetic polyneuropathy E11.42 [place] [address], [place] [address] Oct, Type 2 diabetes mellitus with diabetic polyneuropathy E11.42 and Chronic GERD K21.9 [place] [address], [place] [address] Oct, Chronic GERD K21.9 [place] [address], [place] [address] Sep, [place] [address] [address] Sep, [place] [address] [place] [address] Sep, Type 2 diabetes mellitus with diabetic polyneuropathy E11.42 [facility] [address], [place] [address] Aug, [facility] [id number] [place] [address] Aug, [facility] [address], [place] [address] Aug, [facility] [id number] [place] [address] Aug, Type 2 diabetes mellitus with diabetic polyneuropathy E11.42 [facility] [id number] [place] [address] Jul, Type 2 diabetes mellitus with diabetic polyneuropathy E11.42 ; Chronic GERD K21.9 ; Hypercholesteremia E78.0 and PAD (peripheral artery disease) I73.9 [facility] [address] [place] [address] Jul, Type 2 diabetes mellitus with diabetic polyneuropathy E11.42 [facility] [address] [place] [address] Jul, [address] [place] [phone] Jul, [facility] [address], [place] [address] Jul, Type 2 diabetes mellitus with diabetic polyneuropathy E11.42 [facility] [address], [place] [address] Jul, [address] [place] [address] [id number] Jul, Mixed hyperlipidemia E78.2 ; Hypertension, unspecified type I10 ; PAD ( peripheral artery disease) I73.9 and Chronic ischemic heart disease I25.9 [facility] [address], [place] [address] Jun, Type 2 diabetes mellitus with diabetic polyneuropathy E11.42 [facility] [address] [place] [address] Jun, Type 2 diabetes mellitus with diabetic polyneuropathy E11.42 [facility] [id number] [place] [address] [phone] Jun, [facility] [id number] [place] [address] Jun, Type 2 diabetes mellitus with diabetic polyneuropathy E11.42 ; PAD (peripheral artery disease) I73.9 ; Hypercholesteremia E78.0 and Hypertension, unspecified type I10 [facility] [id number] [place] [address] [id number] Jun, Type 2 diabetes mellitus with diabetic polyneuropathy E11.42 [facility] [id number] [place] [address] May, [facility] [address] [address] May, [facility] [id number] [place] [address] [id number] Apr, Abscess L02.91 [facility] [id number] [place] [address] [phone] Apr, [facility] [id number] [place] [address] [phone] Apr, Dental caries K02.9 and Dental examination Z01.20 [facility] [id number] [place] [address] [id number] Apr, Type 2 diabetes mellitus with diabetic polyneuropathy E11.42 [facility] [id number] [place] [address] [id number] Mar, Type 2 diabetes mellitus with diabetic polyneuropathy E11.42 [facility] [id number] [place] [address] [id number] Mar, Abscess L02.91 and Type 2 diabetes mellitus with diabetic polyneuropathy E11.42 [facility] [id number] [place] [address] [id number] February, Abscess L02.91 [facility] [address] [id number] [id number] Jan, [facility] [address] [id number] [place] [phone] Jan, Type 2 diabetes mellitus with diabetic polyneuropathy E11.42 [facility] [address] [id number] [place] [phone] Jan, [facility] [id number] [place] [address] [id number] Jan, Abscess L02.91 [facility] [id number] [place] [address] [id number] Dec, Type 2 diabetes mellitus with diabetic polyneuropathy E11.[address] [facility] [id number] [place] [address] [phone] Nov, Type 2 diabetes mellitus with diabetic polyneuropathy E11.42 [facility] [id number] [place] [address] [id number] Oct, Type 2 diabetes mellitus with diabetic polyneuropathy E11.[address] [facility] [id number] [place] [address] [id number] Oct, Type 2 diabetes mellitus with diabetic polyneuropathy E11.42 [facility] [address] [id number] [place] [address] [id number] Oct, Type 2 diabetes mellitus with diabetic polyneuropathy E11.42 and Hydrocele , unspecified hydrocele type N43.3 [facility] [place] [address] [id number] [phone] Sep, Enlarged testicle N50.89 [facility] [place] [address] [id number] [place] [phone] Sep, Enlarged testicle N50.89 [facility] [place] [address] [id number] [place] [address] [id number] Sep, Type 2 diabetes mellitus with diabetic polyneuropathy E11.42 [facility] [place] [address] [id number] [place] [phone] Sep, [facility] [place] [id number] [place] [address] [id number] Aug, Dyspepsia R10.13 and Type 2 diabetes mellitus with diabetic polyneuropathy E11.42 [facility] [address] [id number] [place] [id number] Jul, [facility] [address] [id number] [place] [address] [id number] Jul, Type 2 diabetes mellitus with diabetic polyneuropathy E11.42 and Dyspepsia R10.13 [facility] [address] [id number] [place] [address] [phone] Jun, [facility] [address] [id number] [place] [phone] Jun, [facility] [address] [id number] [place] [address] [id number] Jun, Type 2 diabetes mellitus with diabetic polyneuropathy E11.42 and Boils L02.92 [facility] [place] [id number] [place] [address] [id number] May, Type 2 diabetes mellitus with diabetic polyneuropathy E11.42 [facility] [place] [address] [id number] [place] [id number] May, Type 2 diabetes mellitus with diabetic polyneuropathy E11.42 and Bloating R14.0 [facility] [place] [address] [id number] [place] [phone] Apr, [facility] [address] [id number] [phone] Apr, [facility] [place] [address] [id number] [place] [phone] Apr, Type 2 diabetes mellitus with diabetic polyneuropathy E11.42 [facility] [place] [address] [id number] [place] [phone] Mar, [facility] [address] [id number] [place] [phone] Mar, Type 2 diabetes mellitus with diabetic polyneuropathy E11.42 [facility] [place] [address] [id number] [place] [phone] February, Type 2 diabetes mellitus with diabetic polyneuropathy E11.42 [facility] [place] [address] [id number] [place] [phone] February, Type 2 diabetes mellitus with diabetic polyneuropathy E11.42 [facility] [address] [facility] [id number] [place] [phone] February, Type 2 diabetes mellitus with diabetic polyneuropathy E11.42 and Hypercholesteremia E78.0 [facility] [address] [facility] [id number] [place] [phone] Jan, Type 2 diabetes mellitus with diabetic polyneuropathy E11.42 [facility] [address] [facility] [id number] [place] [phone] Jan, Type 2 diabetes mellitus with diabetic polyneuropathy E11.42 IMMUNIZATIONS No Known Immunizations SOCIAL HISTORY Never Assessed REASON FOR VISIT BS f/u PLAN OF CARE VITAL SIGNS MEDICATIONS Unknown [...] stents to the right coronary artery by [facility] 05/31/17 Hospitalization History ER Visit for increased heart rate and elevated blood sugar 08/2015 Hospitalization History Had tooth extracted and became septic, was in hospital for several days. 1999 Hospitalization History [facility] discharge dx PAD,CAD, and SVT. Pt has f/u scheduled with 06/0205/31/2016
--- OUTSIDE RECORDS SUMMARY | 2018-03-19 17:10 | XMS REPORT ---
Author Author FELECIA HOLLOWAY [facility] Address [address] [place] [address] Care Team Providers Care Electrical Prospecting Operator Name Role Phone FELECIA HOLLOWAY Unavailable PROBLEMS Type Condition ICD9-CM Code [id number] Code Onset Dates Condition Status SNOMED Code Problem 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 70377164 Problem Hydrocele, unspecified hydrocele type N43.3 Active 88391663 Problem Hypercholesteremia E78.0 Active 81666069 Problem Hematochezia K92.1 Active 644915772455947 Problem Chronic ischemic heart disease I25.9 Active 924605564 Problem PAD (peripheral artery disease) I73.9 Active 384872787 Problem Abscess L02.91 Active 674410980 Problem Chronic GERD K21.9 Active 853153890 Problem Hypertension, unspecified type I10 Active 68916554 ALLERGIES Substance Reaction Event Type Date Status Penicillin V Potassium rash Drug Allergy Mar, Active ENCOUNTERS Encounter Location Date Diagnosis [place] [id number] [place] [address] Jan, [place] [id number] [place] [address] 730[address]- 8633 Dec, Type 2 diabetes mellitus with diabetic polyneuropathy E11.42 ; Hematochezia K92.1 ; PAD (peripheral artery disease) I73.9 ; Chronic ischemic heart disease I25.9 and Weakness of left lower extremity R29.898 [place] [id number] [place] [address] 62620- 7691 Dec, Type 2 diabetes mellitus with diabetic polyneuropathy E11.42 [place] [id number] [place] [address] 60528- 5722 Nov, Type 2 diabetes mellitus with diabetic polyneuropathy E11.42 and PAD (peripheral artery disease) I73.9 [facility] [address] [address] Oct, Type 2 diabetes mellitus with diabetic polyneuropathy E11.42 [place] [address] [id number] [id number] Oct, Type 2 diabetes mellitus with diabetic polyneuropathy E11.42 [facility] [address], [place] [address] Oct, Type 2 diabetes mellitus with diabetic polyneuropathy E11.42 and Chronic GERD K21.9 [facility] [address] [address] Oct, Chronic GERD K21.9 [facility] [address] [address] Sep, [facility] [address] [address] Sep, [facility] [address] [address] Sep, Type 2 diabetes mellitus with diabetic polyneuropathy E11.42 [facility] [address], [place] [address] Aug, [facility] [address] [address] Aug, [facility] [address] [address] Aug, [facility] [address], [place] [address] Aug, Type 2 diabetes mellitus with diabetic polyneuropathy E11.42 [facility] [address], [place] [address] Jul, Type 2 diabetes mellitus with diabetic polyneuropathy E11.42 ; Chronic GERD K21.9 ; Hypercholesteremia E78.0 and PAD (peripheral artery disease) I73.9 [place] [address], [place] [address] Jul, Type 2 diabetes mellitus with diabetic polyneuropathy E11.42 [facility] [id number] [place] [address] 56120- 8982 Jul, [facility] [id number] [place] [address] [id number] Jul, [facility] [id number] [place] [address] 05245- 2388 Jul, Type 2 diabetes mellitus with diabetic polyneuropathy E11.42 [facility] [id number] [place] [address] 24337- 4987 Jul, [address] [place] [address] [phone] Jul, Mixed hyperlipidemia E78.2 ; Hypertension, unspecified type I10 ; PAD ( peripheral artery disease) I73.9 and Chronic ischemic heart disease I25.9 [facility] [id number] [place] [address] 36648- 8015 Jun, Type 2 diabetes mellitus with diabetic polyneuropathy E11.42 [facility] [id number] [place] [address] 82068- 9127 Jun, Type 2 diabetes mellitus with diabetic polyneuropathy E11.42 [address] [id number] Jun, [facility] [address] [place] [address] 45574- 9847 Jun, Type 2 diabetes mellitus with diabetic polyneuropathy E11.42 ; PAD (peripheral artery disease) I73.9 ; Hypercholesteremia E78.0 and Hypertension, unspecified type I10 [address] [place] [address] [phone] Jun, Type 2 diabetes mellitus with diabetic polyneuropathy E11.42 [facility] [id number] [place] [address] 98217- 2646 May, [facility] [address] [facility] [id number] [address] May, [facility] [place] [id number] [place] [address] [id number] Apr, Abscess L02.91 [facility] [address] [id number] [place] [address] [phone] Apr, [facility] [address] [id number] [id number] Apr, Dental caries K02.9 and Dental examination Z01.20 [facility] [place] [address] [id number] [place] [id number] Apr, Type 2 diabetes mellitus with diabetic polyneuropathy E11.[address] [facility] [address] [id number] [place] [id number] Mar, Type 2 diabetes mellitus with diabetic polyneuropathy E11.[address] [facility] [id number] [place] [address] [id number] Mar, Abscess L02.91 and Type 2 diabetes mellitus with diabetic polyneuropathy E11.[address] [facility] [address] [id number] [place] [phone] February, Abscess L02.[address] [facility] [address] [id number] [place] [id number] Jan, [facility] [address] [id number] [place] [address] [phone] Jan, Type 2 diabetes mellitus with diabetic polyneuropathy E11.[address] [facility] [address] [id number] [place] [phone] Jan, [facility] [address] [id number] [phone] Jan, Abscess L02.[address] [facility] [address] [id number] [place] [phone] Dec, Type 2 diabetes mellitus with diabetic polyneuropathy E11.[address] [facility] [address] [id number] [place] [phone] Nov, Type 2 diabetes mellitus with diabetic polyneuropathy E11.[address] [facility] [id number] [place] [address] [phone] Oct, Type 2 diabetes mellitus with diabetic polyneuropathy E11.42 [facility] [address] [id number] [place] [phone] Oct, Type 2 diabetes mellitus with diabetic polyneuropathy E11.42 [facility] [place] [address] [id number] [place] [phone] Oct, Type 2 diabetes mellitus with diabetic polyneuropathy E11.42 and Hydrocele , unspecified hydrocele type N43.3 [facility] [place] [id number] [place] [address] [phone] Sep, Enlarged testicle N50.89 [facility] [place] [address] [id number] [place] [phone] Sep, Enlarged testicle N50.89 [facility] [place] [id number] [place] [address] [id number] Sep, Type 2 diabetes mellitus with diabetic polyneuropathy E11.42 [facility] [id number] [place] [address] [id number] Sep, [facility] [address] [id number] [place] [address] [id number] Aug, Dyspepsia R10.13 and Type 2 diabetes mellitus with diabetic polyneuropathy E11.42 [facility] [place] [address] [id number] [place] [address] [id number] Jul, [facility] [address] [id number] [place] [address] [id number] Jul, Type 2 diabetes mellitus with diabetic polyneuropathy E11.42 and Dyspepsia R10.13 [facility] [place] [address] [id number] [place] [address] [id number] Jun, [facility] [place] [address] [id number] [place] [address] [id number] Jun, [facility] [place] [address] [id number] [place] [address] [id number] Jun, Type 2 diabetes mellitus with diabetic polyneuropathy E11.42 and Boils L02.92 [facility] [place] [id number] [place] [address] [id number] May, Type 2 diabetes mellitus with diabetic polyneuropathy E11.42 [facility] [place] [address] [id number] [id number] May, Type 2 diabetes mellitus with diabetic polyneuropathy E11.42 and Bloating R14.0 [facility] [place] [address] [id number] [phone] Apr, [facility] [address] [id number] [id number] Apr, [facility] [address] [id number] [place] [address] [id number] Apr, Type 2 diabetes mellitus with diabetic polyneuropathy E11.42 [facility] [place] [id number] [place] [address] [id number] Mar, [facility] [place] [address] [id number] [place] [address] [id number] Mar, Type 2 diabetes mellitus with diabetic polyneuropathy E11.42 [facility] [place] [id number] [place] [address] [id number] February, Type 2 diabetes mellitus with diabetic polyneuropathy E11.42 [facility] [place] [id number] [place] [address] [phone] February, Type 2 diabetes mellitus with diabetic polyneuropathy E11.42 [facility] [place] [address] [id number] [place] [address] [id number] February, Type 2 diabetes mellitus with diabetic polyneuropathy E11.42 and Hypercholesteremia E78.0 [facility] [place] [id number] [place] [address] [id number] Jan, Type 2 diabetes mellitus with diabetic polyneuropathy E11.42 [facility] [place] [address] [id number] [phone] Jan, Type 2 diabetes mellitus with diabetic polyneuropathy E11.42 IMMUNIZATIONS No Known Immunizations SOCIAL HISTORY Never Assessed REASON FOR VISIT Diabetes follow up Gabriel OSWALD PLAN OF CARE Activity Details Follow Up 3 Months Reason:dm VITAL SIGNS Height 66.0 in 2017-03-31 Weight 202.6 lbs 2017-03-31 Temperature 98.1 degrees Fahrenheit 2017-03-31 Heart Rate 100 bpm 2017-03-31 Respiratory Rate 16 2017-03-31 BMI 32.70 kg/m2 2017-03-31 Blood pressure systolic 128 mmHg 2017-03-31 Blood pressure diastolic 72 mmHg 2017-03-31 MEDICATIONS Medication Instructions Dosage Frequency Start Date End Date Duration Status Lyrica 50 mg Orally Three times a day 1 capsule 8h Oct, Active Simvastatin 20 mg Orally Once a day 1 tablet in the evening 24h February, Active Accu-Chek Britt Test Strips as directed 8h Jan, 0 days Active BD Pen Needle Nancy U/F BD PEN NEEDLE NANCY subcutaneous 2 times a day as directed 12h February, Active Lantus 100 UNIT/ML Subcutaneous 2 times a day 53 units am 34 pm 12h Mar Active MetFORMIN HCl ER 500 mg Orally twice a day 2 tabs 12Jul, Active Accu-Chek Britt glucometer as directed Jan, Active Gabapentin 600 MG Orally 3 times a day 1 capsule am, noon, 2 hs 8h Jan, Active Omeprazole 20 mg Orally twice a day 1 capsules 12h Jul, Active Lisinopril 10 mg Orally Once a day 1 tablet 24h Active RESULTS Name Result Date Reference Range A1C (IN HOUSE) 2017-03-31 A1C IN HOUSE 7.6 4.3 - 5.6 % Previous A1c 8.3 Lot [id number] Exp date 01/05 PROCEDURES Procedure Date Ordered Result Body Site GLYCATED HEMOGLOBIN TEST March 31, 2017 INSTRUCTIONS MEDICATIONS ADMINISTERED No Known Medications [...] stents to the right coronary artery by [facility] 05/31/17 Hospitalization History ER Visit for increased heart rate and elevated blood sugar 08/2015 Hospitalization History Had tooth extracted and became septic, was in hospital for several days. 1999 Hospitalization History [facility] discharge dx PAD,CAD, and SVT. Pt has f/u scheduled with 06/0205/31/2016
--- OUTSIDE RECORDS SUMMARY | 2018-03-19 17:10 | XMS REPORT ---
Author Author FELECIA HOLLOWAY [facility] Address [address] [place] [address] Care Team Providers Care Creative Strategist Name Role Phone FELECIA HOLLOWAY Unavailable PROBLEMS Type Condition ICD9-CM Code PKC34-MF Code Onset Dates Condition Status SNOMED Code Problem 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 44047784 Problem Hydrocele, unspecified hydrocele type N43.3 Active 97894539 Problem Hypercholesteremia E78.0 Active 65729229 Problem Hematochezia K92.1 Active 669533049014474 Problem Chronic ischemic heart disease I25.9 Active 383128617 Problem PAD (peripheral artery disease) I73.9 Active 364672081 Problem Abscess L02.91 Active 502210645 Problem Chronic GERD K21.9 Active 228496454 Problem Hypertension, unspecified type I10 Active 42329327 ALLERGIES No Information ENCOUNTERS Encounter Location Date Diagnosis [place] [id number] [place] [address] Jan, [facility] [id number] [place] [address] [id number] 10 Jan, 2018 Chronic ischemic heart disease I25.9 [place] [id number] [place] [address] Jan, PAD (peripheral artery disease) I73.9 and Type 2 diabetes mellitus with diabetic polyneuropathy E11.42 [place] [address] [address] Dec, Type 2 diabetes mellitus with diabetic polyneuropathy E11.42 ; Hematochezia K92.1 ; PAD (peripheral artery disease) I73.9 ; Chronic ischemic heart disease I25.9 and Weakness of left lower extremity R29.898 [place] [address] [address] Dec, Type 2 diabetes mellitus with diabetic polyneuropathy E11.42 [facility] [address] [place] [address] Nov, Type 2 diabetes mellitus with diabetic polyneuropathy E11.42 and PAD (peripheral artery disease) I73.9 [facility] [address] [address] Oct, Type 2 diabetes mellitus with diabetic polyneuropathy E11.[address] [id number] [id number] Oct, Type 2 diabetes mellitus with diabetic polyneuropathy E11.42 [facility] [address] [address] Oct, Type 2 diabetes mellitus with diabetic polyneuropathy E11.42 and Chronic GERD K21.9 [facility] [address] [address] Oct, Chronic GERD K21.9 [facility] [address] [address] Sep, [facility] [address] [address] Sep, [facility] [address] [address] Sep, Type 2 diabetes mellitus with diabetic polyneuropathy E11.42 [facility] [address] [address] Aug, [facility] [address] [address] Aug, [facility] [address] [address] Aug, [facility] [id number] [address] Aug, Type 2 diabetes mellitus with diabetic polyneuropathy E11.42 [facility] [address] [address] Jul, Type 2 diabetes mellitus with diabetic polyneuropathy E11.42 ; Chronic GERD K21.9 ; Hypercholesteremia E78.0 and PAD (peripheral artery disease) I73.9 [place] [id number] [place] [address]- 5537 Jul, Type 2 diabetes mellitus with diabetic polyneuropathy E11.42 [place] [id number] [place] [address]37- [address]143 Jul, [facility] [id number] [place] [address] [id number] Jul, [place] [id number] [place] [address] 58[address]- 9619 Jul, Type 2 diabetes mellitus with diabetic polyneuropathy E11.42 [place] [id number] [place] [address]13- 3706 Jul, [facility] [address] [place] [address] [id number] Jul, Mixed hyperlipidemia E78.2 ; Hypertension, unspecified type I10 ; PAD ( peripheral artery disease) I73.9 and Chronic ischemic heart disease I25.9 [place] [address] [place] [address]32- 3222 Jun, Type 2 diabetes mellitus with diabetic polyneuropathy E11.42 [place] [address] [address] Jun, Type 2 diabetes mellitus with diabetic polyneuropathy E11.42 [facility] [address] [place] [address] [id number] Jun, [place] [address] [place] [address] 93593- 7672 Jun, Type 2 diabetes mellitus with diabetic polyneuropathy E11.42 ; PAD (peripheral artery disease) I73.9 ; Hypercholesteremia E78.0 and Hypertension, unspecified type I10 [place] [id number] [id number] Jun, Type 2 diabetes mellitus with diabetic polyneuropathy E11.42 [facility] [id number] [place] [address] May, [facility] [address], [place] [address] May, [facility] [place] [id number] [place] [address] [id number] Apr, Abscess L02.91 [facility] [place] [id number] [phone] Apr, [facility] [address] [phone] Apr, Dental caries K02.9 and Dental examination Z01.20 [facility] [place] [id number] [place] [address] [id number] Apr, Type 2 diabetes mellitus with diabetic polyneuropathy E11.42 [facility] [place] [address] [id number] [id number] Mar, Type 2 diabetes mellitus with diabetic polyneuropathy E11.42 [facility] [place] [id number] [place] [address] [phone] Mar, Abscess L02.91 and Type 2 diabetes mellitus with diabetic polyneuropathy E11.42 [facility] [address] [id number][place] [id number] February, Abscess L02.91 [facility] [place] [address] [id number] [id number] Jan, [facility] [place] [address] [id number] [phone] Jan, Type 2 diabetes mellitus with diabetic polyneuropathy E11.[address] [facility] [id number] [place] [address] [phone] Jan, [facility] [address] [id number][place] [phone] Jan, Abscess L02.91 [facility] [place] [id number] [place] [address] [id number] Dec, Type 2 diabetes mellitus with diabetic polyneuropathy E11.42 [facility] [address] [id number] [phone] Nov, Type 2 diabetes mellitus with diabetic polyneuropathy E11.42 [facility] [address] [id number][place] [phone] Oct, Type 2 diabetes mellitus with diabetic polyneuropathy E11.42 [facility] [id number] [place] [address] [id number] Oct, Type 2 diabetes mellitus with diabetic polyneuropathy E11.42 [facility] [place] [id number] [place] [address] [id number] Oct, Type 2 diabetes mellitus with diabetic polyneuropathy E11.42 and Hydrocele , unspecified hydrocele type N43.3 [facility] [place] [id number] [place] [address] [id number] Sep, Enlarged testicle N50.89 [facility] [place] [id number] [place] [address] [id number] Sep, Enlarged testicle N50.89 [facility] [place] [id number] [place] [address] [id number] Sep, Type 2 diabetes mellitus with diabetic polyneuropathy E11.42 [facility] [place] [address] [id number][place] [phone] Sep, [facility] [place] [id number] [place] [address] [id number] Aug, Dyspepsia R10.13 and Type 2 diabetes mellitus with diabetic polyneuropathy E11.42 [facility] [address] [id number], [place] [phone] Jul, [facility] [place] [id number] [place] [address] [id number] Jul, Type 2 diabetes mellitus with diabetic polyneuropathy E11.42 and Dyspepsia R10.13 [facility] [address] [id number][place] [phone] Jun, [facility] [place] [id number] [place] [address] [id number] Jun, [facility] [place] [address] [id number], [place] [phone] Jun, Type 2 diabetes mellitus with diabetic polyneuropathy E11.42 and Boils L02.92 [facility] [place] [id number] [place] [address] [id number] May, Type 2 diabetes mellitus with diabetic polyneuropathy E11.42 [facility] [place] [address] [id number][place] [phone] May, Type 2 diabetes mellitus with diabetic polyneuropathy E11.42 and Bloating R14.0 [facility] [place] [address] [id number], [place] [phone] Apr, [facility] [address] [id number] [phone] Apr, [facility] [place] [address] [id number][place] [phone] Apr, Type 2 diabetes mellitus with diabetic polyneuropathy E11.42 [facility] [id number] [place] [address] [id number] Mar, [facility] [place] [id number] [place] [address] [id number] Mar, Type 2 diabetes mellitus with diabetic polyneuropathy E11.42 [facility] [place] [id number] [place] [address] [id number] February, Type 2 diabetes mellitus with diabetic polyneuropathy E11.42 [facility] [place] [id number] [place] [address] [id number] February, Type 2 diabetes mellitus with diabetic polyneuropathy E11.42 [facility] [place] [id number] [place] [address] [id number] February, Type 2 diabetes mellitus with diabetic polyneuropathy E11.42 and Hypercholesteremia E78.0 [facility] [place] [id number] [place] [address] [phone] Jan, Type 2 diabetes mellitus with diabetic polyneuropathy E11.42 [facility] [place] [address] [id number][place] [phone] Jan, Type 2 diabetes mellitus with diabetic polyneuropathy E11.42 IMMUNIZATIONS No Known Immunizations SOCIAL HISTORY Never Assessed REASON FOR VISIT Repository medication refill request PLAN OF CARE VITAL SIGNS MEDICATIONS Medication Instructions Dosage Frequency Start Date End Date Duration Status Lisinopril 10 mg Orally Once a day 1 tablet 24h 60 days Active BD Insulin Syringe 30G X 1/2" 0.5 ML subcutaneously twice a day Inject 12h 05 Jun, 2017 15 days Active Gabapentin 600 MG Orally 3 times a day 1 capsule am, noon, 2 hs 8h Jan, Active Accu-Chek Britt Test Strips In Vitro 3 times a day as directed 8h Jan, 30 days Active RESULTS No [...] stents to the right coronary artery by [facility] 05/31/17 Hospitalization History ER Visit for increased heart rate and elevated blood sugar 08/2015 Hospitalization History Had tooth extracted and became septic, was in hospital for several days. [address] [facility] discharge dx PAD,CAD, and SVT. Pt has f/u scheduled with 06/0205/31/2016
== END 2018-03-14 14:10 | disposition home or self-care (01) ==
LOC: EDUNIT# 17:40 → ER 17:42 → ICU 20:25 → UNDOADMOB 20:25 → ICU 21:43 → UNDOADMOB 21:43 → UNDODISOB 03-14 15:00
PROVIDERS: ADMIT Family Medicine; ATTEND Family Medicine
DX: I47.1 Supraventricular tachycardia (principal); I95.9 Hypotension, unspecified; I25.119 Atherosclerotic heart disease of native coronary artery with unspecified angina pectoris; F17.210 Nicotine dependence, cigarettes, uncomplicated; Z95.5 Presence of coronary angioplasty implant and graft; E11.42 Type 2 diabetes mellitus with diabetic polyneuropathy; F32.9 Major depressive disorder, single episode, unspecified; K21.9 Gastro-esophageal reflux disease without esophagitis; I10 Essential (primary) hypertension; E78.5 Hyperlipidemia, unspecified; I73.9 Peripheral vascular disease, unspecified; Z79.4 Long term (current) use of insulin; Z82.49 Family history of ischemic heart disease and other diseases of the circulatory system; Z68.29 Body mass index [BMI] 29.0-29.9, adult
CPT/HCPCS: 36415; 71045; 80048; 80053; 80061; 82962; 83735; 83874; 83880; 84484; 85007; 85025; 85027; 85379; 85610; 85730; 93005; 93041; 96361; 96374

== ENCOUNTER → 2019-02-26 | Outpatient (CLI) | payer OTHER ==
[~2019-02-26] MED LIST changes: -ADENOSINE 6 MG/2 ML (ADENOCARD) VIAL IV ONE; +ASPI-586 PO; +DILT240C97 PO; -GABA600T2 PO; +GBPN600T PO; +LEG CRAMP PO; +LINA5TAB PO; +LINA5TAB SC; +METF-397 PO; +METF-399 PO; -METF500T5 PO; -NS IV 1000 ML 1,000 ML ONE; +PANT40TA2 PO
== END ==
LOC: CARD 12:49
PROVIDERS: ATTEND Internal Medicine Cardiovascular Disease
DX: I73.9 Peripheral vascular disease, unspecified (principal); I25.10 Atherosclerotic heart disease of native coronary artery without angina pectoris; E11.9 Type 2 diabetes mellitus without complications; I10 Essential (primary) hypertension; J44.9 Chronic obstructive pulmonary disease, unspecified
CPT/HCPCS: 93306

== ENCOUNTER 2019-03-03 11:09 | Day surgery (SDC) | payer OTHER ==
[~2019-03-03] VITALS: Ht 167.6 cm; Wt 81.8 kg
[2019-03-03] VITALS (9 sets, daily range): BP systolic 121–137; BP diastolic 75–83
--- OUTSIDE RECORDS SUMMARY | 2019-03-03 11:14 | XMS REPORT ---
Author Author FELECIA PEÑA Organization [facility] Address [address] [place] [address] Care Team Providers Care Pipe Organ Mechanic Apprentice Name Role Phone FELECIA EPÑA Unavailable PROBLEMS Type Condition ICD9-CM Code GJS26-HD Code Onset Dates Condition Status SNOMED Code Problem Hypertension, unspecified type I10 Active 92746742 Problem Chronic GERD K21.9 Active 586546990 Problem PAD (peripheral artery disease) I73.9 Active 349507160 Problem 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 95442935 Problem PSVT (paroxysmal supraventricular tachycardia) I47.1 Active 31778563 Problem Chronic obstructive pulmonary disease, unspecified COPD type J44.9 Active 67512863 Problem Hematochezia K92.1 Active 350105640431130 Problem Chronic ischemic heart disease I25.9 Active 191572182 Problem Mixed hyperlipidemia E78.2 Active 801384531 Problem Degenerative disc disease, lumbar M51.36 Active 54600096 ALLERGIES Substance Reaction Event Type Date Status Penicillin V Potassium rash Drug Allergy Aug, Active ENCOUNTERS Encounter Location Date Diagnosis [place] [id number] [place] [address]04- 7103 Aug, Type 2 diabetes mellitus with diabetic polyneuropathy E11.42 ; Hypertension, unspecified type I10 and Chronic GERD K21.9 [facility] [address] [address] Jul, [facility] [id number] [place] [address] 96982- 7573 Jul, [facility] [id number] [place] [address] 17707- 6718 Jul, PAD (peripheral artery disease) I73.9 and Type 2 diabetes mellitus with diabetic polyneuropathy E11.42 [place] [address] [place] [address] [address] Jul, [facility] [address], [place] [address] Jul, [facility] [id number] [place] [address] 95404- 9084 Jul, [facility] [id number] [place] [address] 53329- 2322 Jun, Type 2 diabetes mellitus with diabetic polyneuropathy E11.42 and Chronic GERD K21.9 [facility] [address], [place] [address] Jun, [address] [id number] Jun, Mixed hyperlipidemia E78.2 [facility] [id number] [place] [address] 46947- 6237 Jun, [facility] [id number] [place] [address] 84954- 0628 May, [facility] [id number] [place] [address] 47986- 6651 May, [facility] [address], [place] [address] May, [facility] [address], [place] [address] 7[address] May, [facility] [id number] [place] [address] 55501- 8843 May, [facility] [address], [place] [address] May, Type 2 diabetes mellitus with diabetic polyneuropathy E11.42 ; PSVT (paroxysmal supraventricular tachycardia) I47.1 ; PAD (peripheral artery disease) I73.9 ; Chronic obstructive pulmonary disease, unspecified COPD type J44.9 and Skin sore L98.9 [facility] [id number] [place] [address] 05479- 6922 Apr, [facility] [address], [place] [address] Apr, Type 2 diabetes mellitus with diabetic polyneuropathy E11.42 and Chronic GERD K21.9 [facility] [address], [place] [address] 24[address] Mar, [facility] [id number] [place] [address] 92373- 8010 Mar, [facility] [address], [place] [address] 9[address] Mar, [facility] [id number] [place] [address] 06979- 4417 Mar, Hypercholesteremia E78.0 ; Chronic obstructive pulmonary disease, unspecified COPD type J44.9 and PSVT (paroxysmal supraventricular tachycardia) I47.1 [facility] [address], [place] [address] 6[address] Mar, Type 2 diabetes mellitus with diabetic polyneuropathy E11.42 [facility] [address], [place] [address] February, [facility] [address], [place] [address] February, PSVT (paroxysmal supraventricular tachycardia) I47.1 [facility] [address], [place] [address] 95[address] February, COPD exacerbation J44.1 [facility] [address], [place] [address] 2[address] February, COPD exacerbation J44.1 [facility] [address], [place] [address] February, [facility] [address], [place] [address] 4[address] February, [facility] [id number], [place] [address] February, Type 2 diabetes mellitus with diabetic polyneuropathy E11.42 and Chronic obstructive pulmonary disease, unspecified COPD type J44.9 [place] [address] [place] [address] 20373- 4685 February, [place] [address] [place] [id number] [place] [address] 70742- 7590 Jan, Type 2 diabetes mellitus with diabetic polyneuropathy E11.42 and Chronic GERD K21.9 [place] [address] [place] [id number] [place] [address] 89692- 4247 Jan, Type 2 diabetes mellitus with diabetic polyneuropathy E11.42 ; Mixed hyperlipidemia E78.2 ; Chronic obstructive pulmonary disease, unspecified COPD type J44.9 ; Hematochezia K92.1 and Degenerative disc disease, lumbar M51.36 [facility] [id number] [id number] Jan, Chronic ischemic heart disease I25.9 [place] [address] [place] [address] 33541- 7564 Jan, PAD (peripheral artery disease) I73.9 and Type 2 diabetes mellitus with diabetic polyneuropathy E11.42 [place] [address], [place] [address] 4[address] Dec, Type 2 diabetes mellitus with diabetic polyneuropathy E11.42 ; Hematochezia K92.1 ; PAD (peripheral artery disease) I73.9 ; Chronic ischemic heart disease I25.9 and Weakness of left lower extremity R29.898 [place] [address] [place] [address] 07239- 1352 Dec, Type 2 diabetes mellitus with diabetic polyneuropathy E11.42 [place] [address] [place] [address] 16517- 9964 Nov, Type 2 diabetes mellitus with diabetic polyneuropathy E11.42 and PAD (peripheral artery disease) I73.9 [place] [address] [place] [address] 69[address] Oct, Type 2 diabetes mellitus with diabetic polyneuropathy E11.42 [facility] [address] [id number] [id number] Oct, Type 2 diabetes mellitus with diabetic polyneuropathy E11.42 [facility] [address], [place] [address] 8421 Oct, Type 2 diabetes mellitus with diabetic polyneuropathy E11.42 and Chronic GERD K21.9 [facility] [address], [place] [address]- 0744 Oct, Chronic GERD K21.9 [facility] [address] [place] [address] 09873- 1666 Sep, [facility] [address] [place] [address] 50245- 8714 Sep, [facility] [address] [place] [address] 96259- 8793 Sep, Type 2 diabetes mellitus with diabetic polyneuropathy E11.42 [facility] [address] [place] [address] 80856- 1686 Aug, [facility] [id number] [place] [address] 17615- 3980 Aug, [facility] [address], [place] [address] 2700 Aug, [facility] [address], [place] [address]- 0377 Aug, Type 2 diabetes mellitus with diabetic polyneuropathy E11.42 [facility] [address] [address] Jul, Type 2 diabetes mellitus with diabetic polyneuropathy E11.42 ; Chronic GERD K21.9 ; Hypercholesteremia E78.0 and PAD (peripheral artery disease) I73.9 [facility] [address] [place] [address] 70432- 3578 Jul, Type 2 diabetes mellitus with diabetic polyneuropathy E11.42 [facility] [address] [place] [address] 25843- 4145 Jul, [address] [place] [address] [phone] Jul, [facility] [id number] [place] [address] 37340- 4917 Jul, Type 2 diabetes mellitus with diabetic polyneuropathy E11.42 [facility] [id number] [place] [address] 64466- 9551 Jul, [place] [id number] [place] [address] [phone] Jul, Mixed hyperlipidemia E78.2 ; Hypertension, unspecified type I10 ; PAD ( peripheral artery disease) I73.9 and Chronic ischemic heart disease I25.9 [facility] [id number] [place] [address] 88127- 8629 Jun, Type 2 diabetes mellitus with diabetic polyneuropathy E11.42 [facility] [id number] [place] [address] 64569- 3093 Jun, Type 2 diabetes mellitus with diabetic polyneuropathy E11.42 [address] [place] [address] [phone] Jun, [facility] [address] [place] [address] 54426- 3775 Jun, Type 2 diabetes mellitus with diabetic polyneuropathy E11.42 ; PAD (peripheral artery disease) I73.9 ; Hypercholesteremia E78.0 and Hypertension, unspecified type I10 [address] [place] [address] [phone] Jun, 2017 Type 2 diabetes mellitus with diabetic polyneuropathy E11.42 [facility] [address] [place] [address] 97929- 5251 May, [facility] [id number] [place] [address] 18576- 8558 May, [facility] [address] [id number] [id number] Apr, Abscess L02.[address] [id number] [place] [address] [id number] Apr, [facility] [address] [id number] [id number] Apr, Dental caries K02.9 and Dental examination Z01.[address] [facility] [address] [id number][place] [phone] Apr, Type 2 diabetes mellitus with diabetic polyneuropathy E11.[address] [facility] [address] [id number] [place] [id number] Mar, Type 2 diabetes mellitus with diabetic polyneuropathy E11.[address] [id number] [place] [address] [id number] Mar, Abscess L02.91 and Type 2 diabetes mellitus with diabetic polyneuropathy E11.[address] [address] [id number][place] [phone] February, Abscess L02.[address] [id number] [place] [id number] Jan, [facility] [id number] [place] [address] [phone] Jan, Type 2 diabetes mellitus with diabetic polyneuropathy E11.[address] [address] [id number][place] [phone] Jan, [facility] [address] [id number][place] [id number] Jan, Abscess L02.[address] [address] [id number][place] [phone] Dec, Type 2 diabetes mellitus with diabetic polyneuropathy E11.[address] [id number][place] [id number] Nov, Type 2 diabetes mellitus with diabetic polyneuropathy E11.[address] [id number][place] [id number] Oct, Type 2 diabetes mellitus with diabetic polyneuropathy E11.[address] [facility] [address] [id number][place] [id number] Oct, Type 2 diabetes mellitus with diabetic polyneuropathy E11.[address] [facility] [id number] [place] [address] [id number] Oct, Type 2 diabetes mellitus with diabetic polyneuropathy E11.42 and Hydrocele , unspecified hydrocele type N43.3 [facility] [id number] [place] [address] [id number] Sep, Enlarged testicle N50.[address] [facility] [address] [id number] [place] [id number] Sep, Enlarged testicle N50.89 [facility] [id number] [place] [address] [id number] Sep, Type 2 diabetes mellitus with diabetic polyneuropathy E11.42 [facility] [id number] [place] [address] [id number] Sep, [facility] [id number] [place] [address] [id number] Aug, Dyspepsia R10.13 and Type 2 diabetes mellitus with diabetic polyneuropathy E11.[address] [facility] [id number] [place] [address] [id number] Jul, [facility] [id number] [place] [address] [id number] Jul, Type 2 diabetes mellitus with diabetic polyneuropathy E11.42 and Dyspepsia R10.[id number] [place] [address] [id number] Jun, [facility] [id number] [place] [address] [id number] Jun, [facility] [id number] [place] [address] [phone] Jun, Type 2 diabetes mellitus with diabetic polyneuropathy E11.42 and Boils L02.[address] [facility] [id number] [place] [address] [id number] May, Type 2 diabetes mellitus with diabetic polyneuropathy E11.42 [facility] [address] [id number][place] [id number] May, Type 2 diabetes mellitus with diabetic polyneuropathy E11.42 and Bloating R14.0 [facility] [address] [id number], [place] [phone] Apr, [facility] [id number] [place] [phone] Apr, [facility] [address] [id number][place] [id number] Apr, Type 2 diabetes mellitus with diabetic polyneuropathy E11.42 [facility] [address] [id number] [place] [phone] Mar, [facility] [id number] [place] [address] [phone] Mar, Type 2 diabetes mellitus with diabetic polyneuropathy E11.42 [facility] [address] [id number], [place] [id number] February, Type 2 diabetes mellitus with diabetic polyneuropathy E11.42 [facility] [address] [id number][place] [id number] February, Type 2 diabetes mellitus with diabetic polyneuropathy E11.42 [facility] [id number] [place] [address] [id number] February, Type 2 diabetes mellitus with diabetic polyneuropathy E11.42 and Hypercholesteremia E78.0 [facility] [id number] [place] [address] [phone] Jan, Type 2 diabetes mellitus with diabetic polyneuropathy E11.42 [facility] [address] [id number][place] [phone] Jan, Type 2 diabetes mellitus with diabetic polyneuropathy E11.42 IMMUNIZATIONS No Known Immunizations SOCIAL HISTORY Never Assessed REASON FOR VISIT diabetic check-MARGARET bustillos PLAN OF CARE Activity Details Follow Up 3 Months Reason:chronic conditions Pending Test CMP VITAL SIGNS Height 66.0 in 2018-09-09 Temperature 98.3 degrees Fahrenheit 2018-09-09 Heart Rate 83 bpm 2018-09-09 Respiratory Rate 20 2018-09-09 Oximetry 95 % 2018-09-09 Blood pressure systolic 136 mmHg 2018-09-09 Blood pressure diastolic 72 mmHg 2018-09-09 MEDICATIONS Medication Instructions Dosage Frequency Start Date End Date Duration Status Gabapentin 600 MG Orally Three times a day 1 tablet 8h Jan, 90 days Active Protonix 40 MG Orally Once a day 1 tablet 24h 30 day(s) Active MetFORMIN HCl ER 500 MG Orally twice a day 2 tablets 12h 10 Jul, 2016 30 days Active Pantoprazole Sodium 40 MG Orally Once a day 1 tablet 24h 15 May, 2017 90 days Active Accu-Chek Britt test strips test blood sugar 8h Jan, Active Lantus 100 UNIT/ML Subcutaneous 2 times a day 28 units 12h 14 Mar, 2016 90 days Active Metoprolol Succinate ER 25 MG Orally Once a day 1 tablet 24h Jun, 90 days Active Crestor 20 MG Orally Once a day 1 tablet 24h 13 Jun, 2017 Active Aspirin 81 81 MG Orally Once a day 1 tablet 24h Active Acetaminophen Extra Strength 500 mg Orally every 4 hrs 3-4 tablet as needed 4h Active Diltiazem CD 240 MG Orally Once a day 1 capsule 24h 90 days Active Tradjenta 5 mg Orally Once a day 1 tablet 24h 23 Jan, 2018 30 days Active Lyrica 50 mg Orally Twice a day 1 capsule 12h Oct, 30 days Active Clopidogrel Bisulfate 75 MG Orally Once a day 1 tablet 24h 90 days Active Lisinopril 10 mg Orally Once a day 1 tablet 24h 90 days Active RESULTS No Results PROCEDURES Procedure Date Ordered Result Body Site VENIPUNCT, ROUTINE* Sep 09, 2018 INSTRUCTIONS MEDICATIONS ADMINISTERED No Known Medications MEDICAL (GENERAL) HISTORY Type Description Date Medical History type II diabetes Medical History diabetic neuropathy Medical History hypertension Medical History hernia,inguinal Medical History hemorrhoids Medical History Peripheral Artery Disease Medical History Coronary artery disease Medical History Supraventricular tachycardia (episode on 05/31) Medical History dizzy spell Medical History headaches Surgical History appendectomy 2009 Surgical History colonoscopy, benign 2010 Surgical History EGD 2010 Surgical History Heart cath, abdominal aortagram, PTCA w/ 3 stents to the right coronary artery by [facility] 05/31/17 Hospitalization History ER Visit for increased heart rate and elevated blood sugar 08/2015 Hospitalization History Had tooth extracted and became septic, was in hospital for several days. 1999 Hospitalization History [facility] discharge dx PAD,CAD, and SVT. Pt has f/u scheduled with 06/0205/31/2016 Hospitalization History PSVT, Hypotension, CAD-[facility] 03/13/18
--- OUTSIDE RECORDS SUMMARY | 2019-03-03 11:15 | XMS REPORT ---
Author Author ESTRELLITA PANDYA Organization [facility] Address [address] 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 Name Role Phone ESTRELLITA PANDYA Unavailable PROBLEMS Type Condition ICD9-CM Code OAH59-[place] Code Onset Dates Condition Status SNOMED Code Problem Hypertension, unspecified type I10 Active 97271963 Problem Chronic GERD K21.9 Active 152394658 Problem PAD (peripheral artery disease) I73.9 Active 015663939 Problem 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 80941989 Problem PSVT (paroxysmal supraventricular tachycardia) I47.1 Active 17235037 Problem Chronic obstructive pulmonary disease, unspecified COPD type J44.9 Active 25385533 Problem Hematochezia K92.1 Active [id number] Problem Chronic ischemic heart disease I25.9 Active 491689118 Problem Mixed hyperlipidemia E78.2 Active 117033711 Problem Degenerative disc disease, lumbar M51.36 Active 30373671 ALLERGIES No Information ENCOUNTERS Encounter Location Date Diagnosis [facility] [id number] [place] [address] 87163- [phone] Aug, [facility] [id number] [place] [address] 08661- 5240 Jul, [facility] [id number] [place] [address] 32741- 6444 Jul, [facility] [id number] [place] [address] 31112- 8031 Jul, PAD (peripheral artery disease) I73.9 and Type 2 diabetes mellitus with diabetic polyneuropathy E11.42 [facility] [id number] [place] [address] 65161- 1551 Jul, [facility] [address] 42023- 1158 Jul, [facility] [address] [place] [address] 14552- 6752 Jul, [facility] [id number] [place] [address] 994094- 1412 Jun, Type 2 diabetes mellitus with diabetic polyneuropathy E11.42 and Chronic GERD K21.9 [facility] [address] [place] [address] 44436- 4616 Jun, [address] [id number] Jun, Mixed hyperlipidemia E78.2 [facility] [id number] [place] [address] 52984- 4149 Jun, [facility] [id number] [place] [address] 05947- 0553 May, [facility] [id number] [place] [address] 26888- [phone] May, [facility] [id number] [place] [address] 90711- 8353 May, [facility] [id number] [place] [address] 47360- 7581 May, [facility] [address] [place] [address] 19936- 1825 May, [facility] [address] [place] [address] 34212- 4751 May, Type 2 diabetes mellitus with diabetic polyneuropathy E11.42 ; PSVT (paroxysmal supraventricular tachycardia) I47.1 ; PAD (peripheral artery disease) I73.9 ; Chronic obstructive pulmonary disease, unspecified COPD type J44.9 and Skin sore L98.9 [facility] [address] [address] 0902 Apr, [facility] [address] [place] [address] 16566- 0414 Apr, Type 2 diabetes mellitus with diabetic polyneuropathy E11.42 and Chronic GERD K21.9 [facility] [id number] [place] [address] 99708- 9077 Mar, [facility] [id number] [place] [address] 57382- 9442 Mar, [facility] [id number] [place] [address] 27451- 0514 Mar, [facility] [id number] [place] [address] 22579- 8917 Mar, Hypercholesteremia E78.0 ; Chronic obstructive pulmonary disease, unspecified COPD type J44.9 and PSVT (paroxysmal supraventricular tachycardia) I47.1 [facility] [id number] [place] [address] 28736- 0540 Mar, Type 2 diabetes mellitus with diabetic polyneuropathy E11.42 [facility] [id number] [place] [address] 15232- 8545 February, [facility] [id number] [place] [address] 93058- 5463 February, PSVT (paroxysmal supraventricular tachycardia) I47.1 [facility] [id number] [place] [address] 55495- 9046 February, COPD exacerbation J44.1 [facility] [id number] [place] [address] 26958- 8559 February, COPD exacerbation J44.1 [facility] [id number] [place] [address] 80247- 2769 February, [facility] [id number] [place] [address] 71665- 8157 February, [facility] [id number] [place] [address] 59116- 3044 February, Type 2 diabetes mellitus with diabetic polyneuropathy E11.42 and Chronic obstructive pulmonary disease, unspecified COPD type J44.9 [address] [id number] [address]- 4729 February, [place] [id number] [place] [address] 01897- 5131 Jan, Type 2 diabetes mellitus with diabetic polyneuropathy E11.42 and Chronic GERD K21.9 [place] [id number] [place] [address] 71816- 6302 Jan, Type 2 diabetes mellitus with diabetic polyneuropathy E11.42 ; Mixed hyperlipidemia E78.2 ; Chronic obstructive pulmonary disease, unspecified COPD type J44.9 ; Hematochezia K92.1 and Degenerative disc disease, lumbar M51.36 [address] [place] [address] [id number] Jan, Chronic ischemic heart disease I25.9 [place] [id number] [place] [address] 20580- 6237 Jan, PAD (peripheral artery disease) I73.9 and Type 2 diabetes mellitus with diabetic polyneuropathy E11.42 [place] [id number] [place] [address] 95403- 8163 Dec, Type 2 diabetes mellitus with diabetic polyneuropathy E11.42 ; Hematochezia K92.1 ; PAD (peripheral artery disease) I73.9 ; Chronic ischemic heart disease I25.9 and Weakness of left lower extremity R29.898 [place] [id number] [place] [address] 99812- 2614 Dec, Type 2 diabetes mellitus with diabetic polyneuropathy E11.42 [place] [id number] [place] [address] 87897- 1045 Nov, Type 2 diabetes mellitus with diabetic polyneuropathy E11.42 and PAD (peripheral artery disease) I73.9 [place] [id number] [place] [address] 47466- 9317 Oct, Type 2 diabetes mellitus with diabetic polyneuropathy E11.42 [id number] [id number] Oct, Type 2 diabetes mellitus with diabetic polyneuropathy E11.42 [facility] [address] [place] [address] 45300- 2837 Oct, Type 2 diabetes mellitus with diabetic polyneuropathy E11.42 and Chronic GERD K21.9 [facility] [address], [place] [address]- 2118 Oct, Chronic GERD K21.9 [facility] [address] [place] [address] 41590- 0848 Sep, [facility] [id number] [place] [address] 16655- 8818 Sep, [facility] [address] [place] [address] 22636- 9282 Sep, Type 2 diabetes mellitus with diabetic polyneuropathy E11.42 [facility] [address] [place] [address] 91432- 7604 Aug, [facility] [address] [place] [address] 98371- 4918 Aug, [facility] [address], [place] [address]- 5082 Aug, [facility] [address], [place] [address]- 4225 Aug, Type 2 diabetes mellitus with diabetic polyneuropathy E11.42 [facility] [address], [place] [address]- 9850 Jul, Type 2 diabetes mellitus with diabetic polyneuropathy E11.42 ; Chronic GERD K21.9 ; Hypercholesteremia E78.0 and PAD (peripheral artery disease) I73.9 [facility] [address] [address]- 8064 Jul, Type 2 diabetes mellitus with diabetic polyneuropathy E11.42 [facility] [address] [address] 0822 Jul, [facility] [address] [id number] [id number] Jul, [facility] [id number] [place] [address] 36533- 5203 Jul, Type 2 diabetes mellitus with diabetic polyneuropathy E11.42 [place] [address] [place] [address] 21761- 9146 Jul, [facility] [address] [place] [address] [id number] Jul, Mixed hyperlipidemia E78.2 ; Hypertension, unspecified type I10 ; PAD ( peripheral artery disease) I73.9 and Chronic ischemic heart disease I25.9 [place] [id number] [address]- 9409 Jun, Type 2 diabetes mellitus with diabetic polyneuropathy E11.42 [place] [address] [address]- 3525 Jun, Type 2 diabetes mellitus with diabetic polyneuropathy E11.42 [address] [id number] Jun, [place] [address] [place] [address] 59799- 4290 Jun, Type 2 diabetes mellitus with diabetic polyneuropathy E11.42 ; PAD (peripheral artery disease) I73.9 ; Hypercholesteremia E78.0 and Hypertension, unspecified type I10 [facility] [address] [id number] Jun, Type 2 diabetes mellitus with diabetic polyneuropathy E11.42 [place] [address] [place] [address] [id number]- 4492 May, [place] [address] [place] [address] [phone]- 1250 May, [address] [id number] Apr, Abscess L02.91 [place] [address] [id number] [id number] Apr, [facility] [address] [id number] [id number] Apr, Dental caries K02.9 and Dental examination Z01.[address] [facility] [address] [id number] [id number] Apr, Type 2 diabetes mellitus with diabetic polyneuropathy E11.[address] [facility] [address] [id number] [place] [id number] Mar, Type 2 diabetes mellitus with diabetic polyneuropathy E11.[address] [facility] [address] [id number] [place] [id number] Mar, Abscess L02.91 and Type 2 diabetes mellitus with diabetic polyneuropathy E11.[address] [facility] [address] [id number] [place] [id number] February, Abscess L02.[address] [facility] [address] [id number] [place] [id number] Jan, [facility] [address] [id number] [place] [id number] Jan, Type 2 diabetes mellitus with diabetic polyneuropathy E11.[address] [facility] [address] [id number] [place] [id number] Jan, [facility] [address] [id number] [place] [id number] Jan, Abscess L02.[address] [id number] [place] [id number] Dec, Type 2 diabetes mellitus with diabetic polyneuropathy E11.[address] [id number] [place] [id number] Nov, Type 2 diabetes mellitus with diabetic polyneuropathy E11.[address] [id number] [place] [phone] Oct, Type 2 diabetes mellitus with diabetic polyneuropathy E11.[address] [id number] [place] [id number] Oct, Type 2 diabetes mellitus with diabetic polyneuropathy E11.42 [facility] [address] [id number] [phone] Oct, Type 2 diabetes mellitus with diabetic polyneuropathy E11.42 and Hydrocele , unspecified hydrocele type N43.3 [facility] [id number] [place] [address] [id number] Sep, Enlarged testicle N50.89 [facility] [id number] [place] [address] [id number] Sep, Enlarged testicle N50.89 [facility] [id number] [place] [address] [id number] Sep, Type 2 diabetes mellitus with diabetic polyneuropathy E11.42 [facility] [id number] [place] [address] [id number] Sep, [facility] [id number] [place] [address] [id number] Aug, Dyspepsia R10.13 and Type 2 diabetes mellitus with diabetic polyneuropathy E11.42 [facility] [id number] [place] [address] [id number] Jul, [facility] [id number] [place] [address] [id number] Jul, Type 2 diabetes mellitus with diabetic polyneuropathy E11.42 and Dyspepsia R10.13 [facility] [id number] [place] [address] [id number] Jun, [facility] [id number] [place] [address] [id number] Jun, [facility] [id number] [place] [address] [id number] Jun, Type 2 diabetes mellitus with diabetic polyneuropathy E11.42 and Boils L02.92 [facility] [id number] [place] [address] [id number] May, Type 2 diabetes mellitus with diabetic polyneuropathy E11.42 [facility] [id number] [place] [address] [id number] May, Type 2 diabetes mellitus with diabetic polyneuropathy E11.42 and Bloating R14.0 [facility] [id number] [id number] Apr, [facility] Replaced by [facility] [id number] [id number] Apr, [facility] [id number] [place] [address] [id number] Apr, Type 2 diabetes mellitus with diabetic polyneuropathy E11.42 [facility] [id number] [place] [address] [id number] Mar, [facility] [id number] [place] [address] [id number] Mar, Type 2 diabetes mellitus with diabetic polyneuropathy E11.42 [facility] [id number] [place] [address] [phone] February, Type 2 diabetes mellitus with diabetic polyneuropathy E11.42 [facility] [id number] [place] [address] [phone] February, Type 2 diabetes mellitus with diabetic polyneuropathy E11.42 [facility] [id number] [place] [address] [id number] February, Type 2 diabetes mellitus with diabetic polyneuropathy E11.42 and Hypercholesteremia E78.0 [facility] [id number] [place] [address] [id number] Jan, Type 2 diabetes mellitus with diabetic polyneuropathy E11.42 [facility] [id number] [place] [address] [id number] Jan, Type 2 diabetes mellitus with diabetic polyneuropathy E11.42 IMMUNIZATIONS No Known Immunizations SOCIAL HISTORY Never Assessed REASON FOR VISIT Routine nurse call PLAN OF CARE VITAL SIGNS MEDICATIONS Unknown [...] hospital for several days. 1999 Hospitalization History [facility] discharge dx PAD,CAD, and SVT. Pt has f/u scheduled with 06/0205/31/2016 Hospitalization History PSVT, Hypotension, CAD-[facility] 03/13/18
--- OUTSIDE RECORDS SUMMARY | 2019-03-03 11:15 | XMS REPORT ---
Author Author ESTRELLITA PANDYA Organization [facility] Address [address] 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 [place]ner Name Role Phone ESTRELLITA PANDYA Unavailable PROBLEMS Type Condition ICD9-CM Code ZTI47-NR Code Onset Dates Condition Status SNOMED Code Problem Hypertension, unspecified type I10 Active 33443117 Problem Chronic GERD K21.9 Active 201819319 Problem PAD (peripheral artery disease) I73.9 Active 272515201 Problem 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 76324651 Problem PSVT (paroxysmal supraventricular tachycardia) I47.1 Active 12465436 Problem Chronic obstructive pulmonary disease, unspecified COPD type J44.9 Active 51440096 Problem Hematochezia K92.1 Active [id number] Problem Chronic ischemic heart disease I25.9 Active 993167779 Problem Mixed hyperlipidemia E78.2 Active 488629019 Problem Degenerative disc disease, lumbar M51.36 Active 37096435 ALLERGIES No Information ENCOUNTERS Encounter Location Date Diagnosis [facility] [id number] [place] [address] 04229- 9503 Aug, [facility] [id number] [place] [address] 30467- 1987 Jul, [facility] [id number] [place] [address] 12558- 1648 Jul, [facility] [id number] [place] [address] 46869- 7294 Jul, PAD (peripheral artery disease) I73.9 and Type 2 diabetes mellitus with diabetic polyneuropathy E11.42 [facility] [id number] [place] [address] 16538- 3153 Jul, [facility] [address] 75144- 8667 Jul, [facility] [id number] [place] [address] 37016- 1897 Jul, [facility] [id number] [place] [address] 146402- 0179 Jun, Type 2 diabetes mellitus with diabetic polyneuropathy E11.42 and Chronic GERD K21.9 [facility] [address] [place] [address] 36997- 8825 Jun, [address] [id number] Jun, Mixed hyperlipidemia E78.2 [facility] [id number] [place] [address] 25485- 7536 Jun, [facility] [id number] [place] [address] 04971- 2073 May, [facility] [id number] [place] [address] 47599- 0408 May, [facility] [id number] [place] [address] 71114- 8473 May, [facility] [id number] [place] [address] 80513- 9000 May, [facility] [id number] [place] [address] 71795- 9600 May, [facility] [address] [place] [address] 09053- 3724 May, Type 2 diabetes mellitus with diabetic polyneuropathy E11.42 ; PSVT (paroxysmal supraventricular tachycardia) I47.1 ; PAD (peripheral artery disease) I73.9 ; Chronic obstructive pulmonary disease, unspecified COPD type J44.9 and Skin sore L98.9 [facility] [address] [address] 8917 Apr, [facility] [address] [place] [address] 20519- 3233 Apr, Type 2 diabetes mellitus with diabetic polyneuropathy E11.42 and Chronic GERD K21.9 [facility] [id number] [place] [address] 42924- 4932 Mar, [facility] [id number] [place] [address] 09869- 7302 Mar, [facility] [id number] [place] [address] 38339- 7737 Mar, [facility] [id number] [place] [address] 87072- 8704 Mar, Hypercholesteremia E78.0 ; Chronic obstructive pulmonary disease, unspecified COPD type J44.9 and PSVT (paroxysmal supraventricular tachycardia) I47.1 [facility] [id number] [place] [address] 62126- 1507 Mar, Type 2 diabetes mellitus with diabetic polyneuropathy E11.42 [facility] [id number] [place] [address] 74352- 9094 February, [facility] [id number] [place] [address] 71618- 4095 February, PSVT (paroxysmal supraventricular tachycardia) I47.1 [facility] [id number] [place] [address] 36644- 6238 February, COPD exacerbation J44.1 [facility] [id number] [place] [address] 74517- 7788 February, COPD exacerbation J44.1 [facility] [id number] [place] [address] 80870- 0745 February, [facility] [id number] [place] [address] 69642- 1433 February, [facility] [id number] [place] [address] 85009- 9146 February, Type 2 diabetes mellitus with diabetic polyneuropathy E11.42 and Chronic obstructive pulmonary disease, unspecified COPD type J44.9 [address] [address] [address]- 6251 February, [place] [facility] [id number] [place] [address] 42434- 6145 Jan, Type 2 diabetes mellitus with diabetic polyneuropathy E11.42 and Chronic GERD K21.9 [facility] [facility] [id number] [place] [address] 58393- 2127 Jan, Type 2 diabetes mellitus with diabetic polyneuropathy E11.42 ; Mixed hyperlipidemia E78.2 ; Chronic obstructive pulmonary disease, unspecified COPD type J44.9 ; Hematochezia K92.1 and Degenerative disc disease, lumbar M51.36 [address] [place] [address] [phone] Jan, Chronic ischemic heart disease I25.9 [facility] [id number] [place] [address] 78292- 5466 Jan, PAD (peripheral artery disease) I73.9 and Type 2 diabetes mellitus with diabetic polyneuropathy E11.42 [facility] [id number] [place] [address] 21678- 5596 Dec, Type 2 diabetes mellitus with diabetic polyneuropathy E11.42 ; Hematochezia K92.1 ; PAD (peripheral artery disease) I73.9 ; Chronic ischemic heart disease I25.9 and Weakness of left lower extremity R29.898 [place] [facility] [id number] [place] [address] 00197- 1076 Dec, Type 2 diabetes mellitus with diabetic polyneuropathy E11.42 [facility] [id number] [place] [address] 09760- 5418 Nov, Type 2 diabetes mellitus with diabetic polyneuropathy E11.42 and PAD (peripheral artery disease) I73.9 [facility] [id number] [place] [address] 87827- 1729 Oct, Type 2 diabetes mellitus with diabetic polyneuropathy E11.42 [id number] [phone] Oct, Type 2 diabetes mellitus with diabetic polyneuropathy E11.42 [facility] [address] [place] [address] 14689- 0816 Oct, Type 2 diabetes mellitus with diabetic polyneuropathy E11.42 and Chronic GERD K21.9 [facility] [address] [address]- 0388 Oct, Chronic GERD K21.9 [facility] [address] [place] [address] 28137- 6253 Sep, [facility] [id number] [place] [address] 30038- 6037 Sep, [facility] [address] [place] [address] 26186- 8807 Sep, Type 2 diabetes mellitus with diabetic polyneuropathy E11.42 [facility] [address] [place] [address] 63986- 6362 Aug, [facility] [id number] [place] [address] 06122- 2629 Aug, [facility] [address] [address]- 4172 Aug, [facility] [address] [address]- 6444 Aug, Type 2 diabetes mellitus with diabetic polyneuropathy E11.42 [facility] [address] [address]- 0088 Jul, Type 2 diabetes mellitus with diabetic polyneuropathy E11.42 ; Chronic GERD K21.9 ; Hypercholesteremia E78.0 and PAD (peripheral artery disease) I73.9 [facility] [address] [address]- 8747 Jul, Type 2 diabetes mellitus with diabetic polyneuropathy E11.42 [facility] [address] [address] 1602 Jul, [facility] [place] [address] [id number] [phone] Jul, [facility] [id number] [place] [address] 26366- 4935 Jul, Type 2 diabetes mellitus with diabetic polyneuropathy E11.42 [place] [address] [place] [address] 28932- 1766 Jul, [facility] [address] [place] [address] [phone] Jul, Mixed hyperlipidemia E78.2 ; Hypertension, unspecified type I10 ; PAD ( peripheral artery disease) I73.9 and Chronic ischemic heart disease I25.9 [address] [facility] [id number] [address]- 6439 Jun, Type 2 diabetes mellitus with diabetic polyneuropathy E11.42 [facility] [id number] [address]- 6458 Jun, Type 2 diabetes mellitus with diabetic polyneuropathy E11.42 [address] [id number] Jun, [address] [address] [place] [address] 69464- 3747 Jun, Type 2 diabetes mellitus with diabetic polyneuropathy E11.42 ; PAD (peripheral artery disease) I73.9 ; Hypercholesteremia E78.0 and Hypertension, unspecified type I10 [facility] [address] [id number] Jun, Type 2 diabetes mellitus with diabetic polyneuropathy E11.42 [place] [facility] [address] [place] [address] 53723286- 5993 May, [place] [address] [place] [address] [phone]- 8062 May, [address] [phone] Apr, Abscess L02.91 [place] [address] [id number] [phone] Apr, [facility] [address] [id number] [phone] Apr, Dental caries K02.9 and Dental examination Z01.[address] [facility] [address] [id number] [id number] Apr, Type 2 diabetes mellitus with diabetic polyneuropathy E11.[address] [facility] [address] [id number] [place] [id number] Mar, Type 2 diabetes mellitus with diabetic polyneuropathy E11.[address] [facility] [address] [id number] [place] [phone] Mar, Abscess L02.91 and Type 2 diabetes mellitus with diabetic polyneuropathy E11.[address] [facility] [address] [id number] [place] [phone] February, Abscess L02.[address] [facility] [address] [id number] [place] [id number] Jan, [facility] [address] [id number] [place] [id number] Jan, Type 2 diabetes mellitus with diabetic polyneuropathy E11.[address] [facility] [address] [id number] [place] [id number] Jan, [facility] [address] [id number] [place] [phone] Jan, Abscess L02.[address] [address] [id number] [place] [id number] Dec, Type 2 diabetes mellitus with diabetic polyneuropathy E11.[address] [facility] [address] [id number] [place] [id number] Nov, Type 2 diabetes mellitus with diabetic polyneuropathy E11.[address] [facility] [address] [id number] [place] [id number] Oct, Type 2 diabetes mellitus with diabetic polyneuropathy E11.[address] [id number] [place] [id number] Oct, Type 2 diabetes mellitus with diabetic polyneuropathy E11.42 [facility] [place] [address] [id number][place] [id number] Oct, Type 2 diabetes mellitus with diabetic polyneuropathy E11.42 and Hydrocele , unspecified hydrocele type N43.3 [facility] [place] [id number] [place] [address] [id number] Sep, Enlarged testicle N50.89 [facility] [place] [id number] [place] [address] [id number] Sep, Enlarged testicle N50.89 [facility] [id number] [place] [address] [id number] Sep, Type 2 diabetes mellitus with diabetic polyneuropathy E11.42 [facility] [id number] [place] [address] [id number] Sep, [facility] [place] [id number] [place] [address] [id number] Aug, Dyspepsia R10.13 and Type 2 diabetes mellitus with diabetic polyneuropathy E11.42 [facility] [place] [id number] [place] [address] [id number] Jul, [facility] [place] [id number] [place] [address] [id number] Jul, Type 2 diabetes mellitus with diabetic polyneuropathy E11.42 and Dyspepsia R10.13 [facility] [place] [id number] [place] [address] [id number] Jun, [facility] [place] [id number] [place] [address] [id number] Jun, [facility] [place] [id number] [place] [address] [id number] Jun, Type 2 diabetes mellitus with diabetic polyneuropathy E11.42 and Boils L02.92 [facility] [address] [id number] [place] [address] [id number] May, Type 2 diabetes mellitus with diabetic polyneuropathy E11.42 [facility] [place] [id number] [place] [address] [id number] May, Type 2 diabetes mellitus with diabetic polyneuropathy E11.42 and Bloating R14.0 [facility] [id number] [phone] Apr, [facility] [address] [place] [address] [id number] [id number] Apr, [facility] [id number] [place] [address] [id number] Apr, Type 2 diabetes mellitus with diabetic polyneuropathy E11.42 [facility] [id number] [place] [address] [id number] Mar, [facility] [id number] [place] [address] [id number] Mar, Type 2 diabetes mellitus with diabetic polyneuropathy E11.42 [facility] [id number] [place] [address] [id number] February, Type 2 diabetes mellitus with diabetic polyneuropathy E11.42 [facility] [id number] [place] [address] [id number] February, Type 2 diabetes mellitus with diabetic polyneuropathy E11.42 [facility] [id number] [place] [address] [id number] February, Type 2 diabetes mellitus with diabetic polyneuropathy E11.42 and Hypercholesteremia E78.0 [facility] [id number] [place] [address] [id number] Jan, Type 2 diabetes mellitus with diabetic polyneuropathy E11.42 [facility] [address] [place] [address] [id number] Jan, Type 2 diabetes mellitus with diabetic polyneuropathy E11.42 IMMUNIZATIONS No Known Immunizations SOCIAL HISTORY Never Assessed REASON FOR VISIT Med list update PLAN OF CARE VITAL SIGNS MEDICATIONS Medication Instructions Dosage Frequency Start Date End Date Duration Status Crestor 20 MG Orally Once a day 1 tablet 24h Jun, Active RESULTS No Results PROCEDURES No Known [...] stents to the right coronary artery by [facility] 05/31/17 Hospitalization History ER Visit for increased heart rate and elevated blood sugar 08/2015 Hospitalization History Had tooth extracted and became septic, was in hospital for several days. 1999 Hospitalization History [facility] discharge dx PAD,CAD, and SVT. Pt has f/u scheduled with 06/0205/31/2016 Hospitalization History PSVT, Hypotension, CAD-[facility] 03/13/18
--- OUTSIDE RECORDS SUMMARY | 2019-03-03 11:15 | XMS REPORT ---
Author Author ESTRELLITA PANDYA Organization [facility] [place] Address [address] [place] [address] Care Team Providers Care School Guidance Counselor Name Role Phone ESTRELLITA PANDYA Unavailable PROBLEMS Type Condition ICD9-CM Code ZYE93-BL Code Onset Dates Condition Status SNOMED Code Problem Hypertension, unspecified type I10 Active 23455376 Problem Chronic GERD K21.9 Active 307388739 Problem PAD (peripheral artery disease) I73.9 Active 101263699 Problem 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 01087928 Problem PSVT (paroxysmal supraventricular tachycardia) I47.1 Active 03495390 Problem Chronic obstructive pulmonary disease, unspecified COPD type J44.9 Active 16164335 Problem Hematochezia K92.1 Active [id number] Problem Chronic ischemic heart disease I25.9 Active 351874434 Problem Mixed hyperlipidemia E78.2 Active 843347013 Problem Degenerative disc disease, lumbar M51.36 Active 76877345 ALLERGIES No Information ENCOUNTERS Encounter Location Date Diagnosis [facility] [place] [id number] [place] [address] 50836- 3029 Aug, [facility] [place] [id number] [place] [address] 75805- 0310 Jul, [facility] [place] [id number] [place] [address] 85375- 7623 Jul, [facility] [place] [id number] [place] [address] 92086- 1620 Jul, PAD (peripheral artery disease) I73.9 and Type 2 diabetes mellitus with diabetic polyneuropathy E11.42 [facility] [place] [id number] [place] [address] 37658- 4877 Jul, [facility] [place] [address] 07036- 0987 Jul, [facility] [place] [id number] [place] [address] 72406- 4017 Jul, [facility] [place] [id number] [place] [address] 039716- 2953 Jun, Type 2 diabetes 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 and Chronic GERD K21.9 [facility] [place] [id number] [place] [address] 28533- 2263 Jun, [id number] [id number] Jun, Mixed hyperlipidemia E78.2 [facility] [place] [id number] [place] [address] 75176- 3654 Jun, [facility] [place] [id number] [place] [address] 25528- 0960 May, [facility] [place] [id number] [place] [address] 33629- 2579 May, [facility] [place] [id number] [place] [address] 96321- 4255 May, [facility] [place] [id number] [place] [address] 34640- 9140 May, [facility] [place] [id number] [place] [address] 72034- 5515 May, [facility] [place] [id number] [place] [address] 89657- 6830 May, Type 2 diabetes mellitus with diabetic polyneuropathy E11.42 ; PSVT (paroxysmal supraventricular tachycardia) I47.1 ; PAD (peripheral artery disease) I73.9 ; Chronic obstructive pulmonary disease, unspecified COPD type J44.9 and Skin sore L98.9 [facility] [place] [address] [address]- 9231 Apr, [facility] [place] [id number] [place] [address] 42489- 6035 Apr, Type 2 diabetes mellitus with diabetic polyneuropathy E11.42 and Chronic GERD K21.9 [facility] [place] [id number] [place] [address] 79734- 5003 Mar, [facility] [place] [id number] [place] [address] 63457- 5461 Mar, [facility] [place] [id number] [place] [address] 66149- 1783 Mar, [facility] [place] [id number] [place] [address] 15408- 5927 Mar, Hypercholesteremia E78.0 ; Chronic obstructive pulmonary disease, unspecified COPD type J44.9 and PSVT (paroxysmal supraventricular tachycardia) I47.1 [facility] [place] [id number] [place] [address] 60431- 8679 Mar, Type 2 diabetes mellitus with diabetic polyneuropathy E11.42 [facility] [place] [id number] [place] [address] 61134- 2772 February, [facility] [place] [id number] [place] [address] 60882- 2415 February, PSVT (paroxysmal supraventricular tachycardia) I47.1 [facility] [place] [id number] [place] [address] 70292- 2518 February, COPD exacerbation J44.1 [facility] [place] [id number] [place] [address] 96478- 7463 February, COPD exacerbation J44.1 [facility] [place] [id number] [place] [address] 79786- 2550 February, [facility] [place] [id number] [place] [address] 79798- 4408 February, [facility] [place] [id number] [place] [address] 36995- 4535 February, Type 2 diabetes mellitus with diabetic polyneuropathy E11.42 and Chronic obstructive pulmonary disease, unspecified COPD type J44.9 [address] [address]- 0819 February, [address] [address] [id number] [place] [address] 84843- 6535 Jan, Type 2 diabetes mellitus with diabetic polyneuropathy E11.42 and Chronic GERD K21.9 [place] [id number] [place] [address] 63365- 4358 Jan, Type 2 diabetes mellitus with diabetic polyneuropathy E11.42 ; Mixed hyperlipidemia E78.2 ; Chronic obstructive pulmonary disease, unspecified COPD type J44.9 ; Hematochezia K92.1 and Degenerative disc disease, lumbar M51.36 [address] [place] [address] [phone] Jan, Chronic ischemic heart disease I25.9 [place] [id number] [place] [address] 73023- 5091 Jan, PAD (peripheral artery disease) I73.9 and Type 2 diabetes mellitus with diabetic polyneuropathy E11.42 [place] [id number] [place] [address] 61586- 7811 Dec, Type 2 diabetes mellitus with diabetic polyneuropathy E11.42 ; Hematochezia K92.1 ; PAD (peripheral artery disease) I73.9 ; Chronic ischemic heart disease I25.9 and Weakness of left lower extremity R29.898 [address] [id number] [place] [address] 39583- 3400 Dec, Type 2 diabetes mellitus with diabetic polyneuropathy E11.42 [place] [id number] [place] [address] 87887- 3940 Nov, Type 2 diabetes mellitus with diabetic polyneuropathy E11.42 and PAD (peripheral artery disease) I73.9 [place] [id number] [place] [address] 87758- 7492 Oct, Type 2 diabetes mellitus with diabetic polyneuropathy E11.42 [id number] [id number] Oct, Type 2 diabetes mellitus with diabetic polyneuropathy E11.42 [facility] [place] [address] [place] [address] 92617- 4932 Oct, Type 2 diabetes mellitus with diabetic polyneuropathy E11.42 and Chronic GERD K21.9 [facility] [place] [address], [place] [address]- 3326 Oct, Chronic GERD K21.9 [facility] [place] [id number] [place] [address] 39341- 4757 Sep, [facility] [place] [id number] [place] [address] 65237- 4953 Sep, [facility] [place] [id number] [place] [address] 30420- 6998 Sep, Type 2 diabetes mellitus with diabetic polyneuropathy E11.42 [facility] [place] [id number] [place] [address] 28454- 8879 Aug, [facility] [place] [id number] [place] [address] 90531- 3629 Aug, [facility] [place] [address], [place] [address]- 2071 Aug, [facility] [place] [address], [place] [address]- 5871 Aug, Type 2 diabetes mellitus with diabetic polyneuropathy E11.42 [facility] [place] [address], [place] [address]- 5260 Jul, Type 2 diabetes mellitus with diabetic polyneuropathy E11.42 ; Chronic GERD K21.9 ; Hypercholesteremia E78.0 and PAD (peripheral artery disease) I73.9 [facility] [place] [address], [place] [address]- 4156 Jul, Type 2 diabetes mellitus with diabetic polyneuropathy E11.42 [facility] [place] [address] [address]- 2882 Jul, [facility] [address] [id number] [id number] Jul, [facility] [place] [id number] [place] [address] 53773- 8789 Jul, Type 2 diabetes mellitus with diabetic polyneuropathy E11.42 [address] [address] [place] [address] 42571- 9106 Jul, [facility] [address] [place] [address] [id number] Jul, Mixed hyperlipidemia E78.2 ; Hypertension, unspecified type I10 ; PAD ( peripheral artery disease) I73.9 and Chronic ischemic heart disease I25.9 [id number] [address]- 9356 Jun, Type 2 diabetes mellitus with diabetic polyneuropathy E11.42 [place] [id number] [address]- 9949 Jun, Type 2 diabetes mellitus with diabetic polyneuropathy E11.42 [address] [id number] Jun, [address] [address] [place] [address] 64226- 6793 Jun, Type 2 diabetes mellitus with diabetic polyneuropathy E11.42 ; PAD (peripheral artery disease) I73.9 ; Hypercholesteremia E78.0 and Hypertension, unspecified type I10 [facility] [address] [id number] Jun, Type 2 diabetes mellitus with diabetic polyneuropathy E11.42 [address] [address] [place] [address] [id number]- 7699 May, [place] [id number] [place] [address] [id number]- 6058 May, [address] [id number] Apr, Abscess L02.91 [place] [address] [id number] [id number] Apr, [facility] [address] [id number] [id number] Apr, Dental caries K02.9 and Dental examination Z01.[address] [facility] [address] [id number] [id number] Apr, Type 2 diabetes mellitus with diabetic polyneuropathy E11.[address] [facility] [address] [id number] [place] [phone] Mar, Type 2 diabetes mellitus with diabetic polyneuropathy E11.[address] [facility] [address] [id number] [place] [id number] Mar, Abscess L02.91 and Type 2 diabetes mellitus with diabetic polyneuropathy E11.[address] [facility] [address] [id number] [place] [id number] February, Abscess L02.[address] [facility] [address] [id number] [place] [id number] Jan, [facility] [address] [id number] [place] [id number] Jan, Type 2 diabetes mellitus with diabetic polyneuropathy E11.[address] [facility] [address] [id number] [place] [id number] Jan, [facility] [address] [id number] [place] [id number] Jan, Abscess L02.[address] [id number] [place] [id number] Dec, Type 2 diabetes mellitus with diabetic polyneuropathy E11.[address] [facility] [id number] [place] [id number] Nov, Type 2 diabetes mellitus with diabetic polyneuropathy E11.[address] [id number] [place] [id number] Oct, Type 2 diabetes mellitus with diabetic polyneuropathy E11.[address] [address] [id number] [place] [id number] Oct, Type 2 diabetes mellitus with diabetic polyneuropathy E11.42 [facility] [address] [id number][place] [id number] Oct, Type 2 diabetes mellitus with diabetic polyneuropathy E11.42 and Hydrocele , unspecified hydrocele type N43.3 [facility] [id number] [place] [address] [id number] Sep, Enlarged testicle N50.89 [facility] [id number] [place] [address] [id number] Sep, Enlarged testicle N50.89 [facility] [id number] [place] [address] [id number] Sep, Type 2 diabetes mellitus with diabetic polyneuropathy E11.42 [facility] [id number] [place] [address] [id number] Sep, [facility] [id number] [place] [address] [id number] Aug, Dyspepsia R10.13 and Type 2 diabetes mellitus with diabetic polyneuropathy E11.42 [facility] [id number] [place] [address] [id number] Jul, [facility] [address] [id number] [place] [address] [id number] Jul, Type 2 diabetes mellitus with diabetic polyneuropathy E11.42 and Dyspepsia R10.13 [facility] [id number] [place] [address] [id number] Jun, [facility] [address] [id number] [place] [address] [id number] Jun, [facility] [id number] [place] [address] [id number] Jun, Type 2 diabetes mellitus with diabetic polyneuropathy E11.42 and Boils L02.92 [facility] [id number] [place] [address] [id number] May, Type 2 diabetes mellitus with diabetic polyneuropathy E11.42 [facility] [id number] [place] [address] [id number] May, Type 2 diabetes mellitus with diabetic polyneuropathy E11.42 and Bloating R14.0 [facility] [address] [facility] [id number] [id number] Apr, [facility] [address] [place] [address] [id number][place] [id number] Apr, [facility] [id number] [place] [address] [id number] Apr, Type 2 diabetes mellitus with diabetic polyneuropathy E11.42 [facility] [id number] [place] [address] [id number] Mar, [facility] [id number] [place] [address] [id number] Mar, Type 2 diabetes mellitus with diabetic polyneuropathy E11.42 [facility] [id number] [place] [address] [id number] February, Type 2 diabetes mellitus with diabetic polyneuropathy E11.42 [facility] [address] [place] [address] [id number] February, Type 2 diabetes mellitus with diabetic polyneuropathy E11.42 [facility] [id number] [place] [address] [id number] February, Type 2 diabetes mellitus with diabetic polyneuropathy E11.42 and Hypercholesteremia E78.0 [facility] [address] [place] [address] [id number] Jan, Type 2 diabetes mellitus with diabetic polyneuropathy E11.42 [address] [place] [address] [phone] Jan, Type 2 diabetes mellitus with diabetic polyneuropathy E11.42 IMMUNIZATIONS No Known Immunizations SOCIAL HISTORY Never Assessed REASON FOR VISIT Repository Medication PLAN OF CARE VITAL SIGNS MEDICATIONS Medication Instructions Dosage Frequency Start Date End Date Duration Status Gabapentin 600 MG Orally Three times a day 1 tablet 8h Jan, 90 days Active Crestor 40 MG Orally Once a day 1 tablet 24h Jun, 60 days Active RESULTS No Results PROCEDURES No [...] stents to the right coronary artery by [facility] 05/31/17 Hospitalization History ER Visit for increased heart rate and elevated blood sugar 08/2015 Hospitalization History Had tooth extracted and became septic, was in hospital for several days. 1999 Hospitalization History [facility] discharge dx PAD,CAD, and SVT. Pt has f/u scheduled with 06/0205/31/2016 Hospitalization History PSVT, Hypotension, CAD-[facility] 03/13/18
--- OUTSIDE RECORDS SUMMARY | 2019-03-03 11:16 | XMS REPORT ---
Author Author ESTRELLITA PANDYA Organization [facility] Address [address] [place] [address] Care Team Providers Care Railroad Worker Name Role Phone ESTRELLITA PANDYA Unavailable PROBLEMS Type Condition ICD9-CM Code KBB64-QA Code Onset Dates Condition Status SNOMED Code Problem Hypertension, unspecified type I10 Active 59402397 Problem Chronic GERD K21.9 Active 356693511 Problem PAD (peripheral artery disease) I73.9 Active 184501348 Problem 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 51812624 Problem PSVT (paroxysmal supraventricular tachycardia) I47.1 Active 33772944 Problem Chronic obstructive pulmonary disease, unspecified COPD type J44.9 Active 36709185 Problem Hematochezia K92.1 Active 841990380850320 Problem Chronic ischemic heart disease I25.9 Active 557948140 Problem Mixed hyperlipidemia E78.2 Active 964085824 Problem Degenerative disc disease, lumbar M51.36 Active 34105007 ALLERGIES No Information ENCOUNTERS Encounter Location Date Diagnosis [facility] [id number] [place] [address] 18985- 7793 Jul, [facility] [id number] [place] [address] 29849- 8141 Jul, [facility] [id number] [place] [address] [phone]- 9641 Jun, Type 2 diabetes mellitus with diabetic polyneuropathy E11.42 and Chronic GERD K21.9 [facility] [id number] [place] [address] 02354- 9604 Jun, [facility] [id number] [place] [address] [id number] Jun, Mixed hyperlipidemia E78.2 [facility] [id number] [place] [address] 63625- 3487 Jun, [facility] [address] [address] 269[address] May, [facility] [id number] [place] [address] 74244- 1521 May, [facility] [id number] [place] [address] 82893- 1352 May, [facility] [id number] [place] [address] 34215- 3610 May, [facility] [id number] [place] [address] 41520- 8820 May, [facility] [id number] [place] [address] 20638- 3580 May, Type 2 diabetes mellitus with diabetic polyneuropathy E11.42 ; PSVT (paroxysmal supraventricular tachycardia) I47.1 ; PAD (peripheral artery disease) I73.9 ; Chronic obstructive pulmonary disease, unspecified COPD type J44.9 and Skin sore L98.9 [facility] [address] [address] Apr, [facility] [id number] [place] [address] 07376- 9322 Apr, Type 2 diabetes mellitus with diabetic polyneuropathy E11.42 and Chronic GERD K21.9 [facility] [address] [address] 7019 Mar, [facility] [address] [address] 5205 Mar, [facility] [id number] [place] [address] 62825- 6706 Mar, [facility] [address] [address] 8029 Mar, Hypercholesteremia E78.0 ; Chronic obstructive pulmonary disease, unspecified COPD type J44.9 and PSVT (paroxysmal supraventricular tachycardia) I47.1 [facility] [address] [address] 9558 Mar, Type 2 diabetes mellitus with diabetic polyneuropathy E11.42 [facility] [id number] [place] [address] 46237- 5240 February, [facility] [id number] [place] [address] 62643- 3778 February, PSVT (paroxysmal supraventricular tachycardia) I47.1 [facility] [id number] [place] [address] 44040- 3417 February, COPD exacerbation J44.1 [facility] [id number] [place] [address] 46961- 0038 February, COPD exacerbation J44.1 [facility] [id number] [place] [address] 11893- 6170 February, [facility] [id number] [place] [address] 12025- 9806 February, [facility] [id number] [place] [address] 86731- 9816 February, Type 2 diabetes mellitus with diabetic polyneuropathy E11.42 and Chronic obstructive pulmonary disease, unspecified COPD type J44.9 [facility] [id number] [place] [address] 68932- 4541 February, [facility] [id number] [place] [address] 23150- 4096 Jan, Type 2 diabetes mellitus with diabetic polyneuropathy E11.42 and Chronic GERD K21.9 [facility] [id number] [place] [address] 01229- 2725 Jan, Type 2 diabetes mellitus with diabetic polyneuropathy E11.42 ; Mixed hyperlipidemia E78.2 ; Chronic obstructive pulmonary disease, unspecified COPD type J44.9 ; Hematochezia K92.1 and Degenerative disc disease, lumbar M51.36 [id number] [id number] 10 Jan, 2018 Chronic ischemic heart disease I25.9 [facility] [id number] [place] [address] 67704- 4057 Jan, PAD (peripheral artery disease) I73.9 and Type 2 diabetes mellitus with diabetic polyneuropathy E11.42 [facility] [id number] [place] [address] 37770- 7512 Dec, Type 2 diabetes mellitus with diabetic polyneuropathy E11.42 ; Hematochezia K92.1 ; PAD (peripheral artery disease) I73.9 ; Chronic ischemic heart disease I25.9 and Weakness of left lower extremity R29.898 [place] [id number] [place] [address] 22715- 7298 Dec, Type 2 diabetes mellitus with diabetic polyneuropathy E11.42 [facility] [id number] [place] [address] 71386- 9825 Nov, Type 2 diabetes mellitus with diabetic polyneuropathy E11.42 and PAD (peripheral artery disease) I73.9 [facility] [address] [place] [address] 56232- 7433 Oct, Type 2 diabetes mellitus with diabetic polyneuropathy E11.42 [facility] [id number] [id number] Oct, Type 2 diabetes mellitus with diabetic polyneuropathy E11.42 [facility] [address] [place] [address] 38703- 0204 Oct, Type 2 diabetes mellitus with diabetic polyneuropathy E11.42 and Chronic GERD K21.9 [facility] [address] [place] [address] 85077- 2884 Oct, Chronic GERD K21.9 [facility] [id number] [place] [address] 71475- 7592 Sep, [facility] [id number] [place] [address] 28690- 3263 Sep, [facility] [address] [address]- 9967 Sep, Type 2 diabetes mellitus with diabetic polyneuropathy E11.42 [facility] [address] [address]- 6619 Aug, [facility] [address] [address]- 0242 Aug, [facility] [address] [place] [address] 05500- 0589 Aug, [facility] [address] [place] [address] 00829- 2650 Aug, Type 2 diabetes mellitus with diabetic polyneuropathy E11.42 [facility] [address] [address]- 8867 Jul, Type 2 diabetes mellitus with diabetic polyneuropathy E11.42 ; Chronic GERD K21.9 ; Hypercholesteremia E78.0 and PAD (peripheral artery disease) I73.9 [facility] [address] [address]- 0815 Jul, Type 2 diabetes mellitus with diabetic polyneuropathy E11.42 [facility] [address] [address]- 0456 Jul, [address] [id number] Jul, [facility] [address] [address]- 8853 Jul, Type 2 diabetes mellitus with diabetic polyneuropathy E11.42 [facility] [address] [address]- 4722 Jul, [address] [place] [address] [id number] Jul, Mixed hyperlipidemia E78.2 ; Hypertension, unspecified type I10 ; PAD ( peripheral artery disease) I73.9 and Chronic ischemic heart disease I25.9 [facility] [address] [address]- 6907 29 Jun, 2017 Type 2 diabetes mellitus with diabetic polyneuropathy E11.42 [facility] [id number] [place] [address] 29377- 6985 Jun, Type 2 diabetes mellitus with diabetic polyneuropathy E11.42 [facility] [id number] [place] [address] [id number] Jun, [facility] [id number] [place] [address] 13951- 1187 Jun, Type 2 diabetes mellitus with diabetic polyneuropathy E11.42 ; PAD (peripheral artery disease) I73.9 ; Hypercholesteremia E78.0 and Hypertension, unspecified type I10 [facility] [id number] [place] [address] [id number] Jun, Type 2 diabetes mellitus with diabetic polyneuropathy E11.42 [facility] [id number] [place] [address] 68156- 1097 May, [facility] [id number] [place] [address] 74641- 3781 May, [facility] [id number] [place] [address] [phone] Apr, Abscess L02.91 [facility] [address] [place] [address] [id number] Apr, [facility] [id number] [place] [address] [id number] Apr, Dental caries K02.9 and Dental examination Z01.20 [facility] [id number] [place] [address] [id number] Apr, Type 2 diabetes mellitus with diabetic polyneuropathy E11.42 [id number] [place] [address] [id number] Mar, Type 2 diabetes mellitus with diabetic polyneuropathy E11.42 [facility] [id number] [place] [address] [id number] Mar, Abscess L02.91 and Type 2 diabetes mellitus with diabetic polyneuropathy E11.[address] [facility] [address] [id number] [place] [id number] February, Abscess L02.[address] [facility] [address] [id number] [place] [id number] Jan, [facility] [address] [id number] [place] [address] Jan, Type 2 diabetes mellitus with diabetic polyneuropathy E11.[address] [facility] [address] [id number] [place] [id number] Jan, [facility] [address] [id number] [place] [id number] Jan, Abscess L02.[address] [id number] [place] [id number] Dec, Type 2 diabetes mellitus with diabetic polyneuropathy E11.[address] [facility] [address] [id number] [place] [id number] Nov, Type 2 diabetes mellitus with diabetic polyneuropathy E11.[address] [facility] [address] [id number] [place] [id number] Oct, Type 2 diabetes mellitus with diabetic polyneuropathy E11.[address] [facility] [address] [id number] [place] [phone] Oct, Type 2 diabetes mellitus with diabetic polyneuropathy E11.[address] [facility] [address] [id number] [place] [id number] Oct, Type 2 diabetes mellitus with diabetic polyneuropathy E11.42 and Hydrocele , unspecified hydrocele type N43.3 [facility] [address] [id number] [place] [id number] Sep, Enlarged testicle N50.89 [facility] [address] [id number] [place] [id number] Sep, Enlarged testicle N50.89 [facility] [address] [id number] [place] [id number] Sep, Type 2 diabetes mellitus with diabetic polyneuropathy E11.[address] [facility] [id number] [place] [address] [id number] Sep, [facility] [address] [id number] [id number] Aug, Dyspepsia R10.13 and Type 2 diabetes mellitus with diabetic polyneuropathy E11.[address] [facility] [address] [id number] [place] [id number] Jul, [facility] [address] [id number] [place] [id number] Jul, Type 2 diabetes mellitus with diabetic polyneuropathy E11.42 and Dyspepsia R10.13 [facility] [address] [id number] [place] [id number] Jun, [facility] [id number] [place] [address] [id number] Jun, [facility] [address] [id number] [phone] Jun, Type 2 diabetes mellitus with diabetic polyneuropathy E11.42 and Boils L02.92 [facility] [address] [id number] [place] [id number] May, Type 2 diabetes mellitus with diabetic polyneuropathy E11.42 [facility] [address] [id number] [place] [phone] May, Type 2 diabetes mellitus with diabetic polyneuropathy E11.42 and Bloating R14.0 [facility] [address] [id number] [place] [phone] Apr, [facility] [address] [id number] [phone] Apr, [facility] [address] [id number] [place] [id number] Apr, Type 2 diabetes mellitus with diabetic polyneuropathy E11.[address] [facility] [address] [id number] [place] [id number] Mar, [facility] [address] [id number] [place] [id number] Mar, Type 2 diabetes mellitus with diabetic polyneuropathy E11.42 [facility] [address] [id number] [place] [phone] February, Type 2 diabetes mellitus with diabetic polyneuropathy E11.42 [facility] 120 [facility] [id number] [id number] February, Type 2 diabetes mellitus with diabetic polyneuropathy E11.42 [facility] 120 [facility] [id number] [id number] February, Type 2 diabetes mellitus with diabetic polyneuropathy E11.42 and Hypercholesteremia E78.0 [facility] [address] [id number] Jan, Type 2 diabetes mellitus with diabetic polyneuropathy E11.[address] [id number] [place] [id number] Jan, Type 2 diabetes mellitus with diabetic polyneuropathy E11.42 IMMUNIZATIONS No Known Immunizations SOCIAL HISTORY Never Assessed REASON FOR VISIT Controlled refill/Repository PLAN OF CARE VITAL SIGNS MEDICATIONS Medication Instructions Dosage Frequency Start Date End Date Duration Status Lisinopril 10 mg Orally Once a day 1 tablet 24h 90 days Active MetFORMIN HCl ER 500 MG Orally twice a day 2 tablets 12h 10 Jul, 2016 30 days Active Tradjenta 5 mg Orally Once a day 1 tablet 24h 23 Jan, 2018 30 days Active Lyrica 50 mg Orally Twice a day 1 capsule 12h Oct, 30 days Active Pantoprazole Sodium 40 MG Orally Once a day 1 tablet 24h 15 May, 2017 90 days Active RESULTS No Results PROCEDURES No [...] stents to the right coronary artery by [facility] 05/31/17 Hospitalization History ER Visit for increased heart rate and elevated blood sugar 08/2015 Hospitalization History Had tooth extracted and became septic, was in hospital for several days. 1999 Hospitalization History [facility] discharge dx PAD,CAD, and SVT. Pt has f/u scheduled with 06/0205/31/2016 Hospitalization History PSVT, Hypotension, CAD-[facility] 03/13/18
--- OUTSIDE RECORDS SUMMARY | 2019-03-03 11:16 | XMS REPORT ---
Author Author ESTRELLITA PANDYA Organization [facility] Address [address] [place] [address] Care Team Providers Care Environmental Emergencies Planner Name Role Phone ESTERLLITA PANDYA Unavailable PROBLEMS Type Condition ICD9-CM Code [id number] Code Onset Dates Condition Status SNOMED Code Problem Hypertension, unspecified type I10 Active 19677804 Problem Chronic GERD K21.9 Active 041851272 Problem PAD (peripheral artery disease) I73.9 Active 823847100 Problem 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 60600904 Problem PSVT (paroxysmal supraventricular tachycardia) I47.1 Active 64226326 Problem Chronic obstructive pulmonary disease, unspecified COPD type J44.9 Active 86301435 Problem Hematochezia K92.1 Active [id number] Problem Chronic ischemic heart disease I25.9 Active 025112934 Problem Mixed hyperlipidemia E78.2 Active 486696857 Problem Degenerative disc disease, lumbar M51.36 Active 72699517 ALLERGIES No Information ENCOUNTERS Encounter Location Date Diagnosis [facility] [address] [place] [address] 51876- 3329 Jul, [facility] [address] [place] [address] 34710- 4545 Jul, [facility] [id number] [place] [address] 85267- 0354 Jul, [facility] [address] [place] [address] 08664- 1938 Jun, Type 2 diabetes mellitus with diabetic polyneuropathy E11.42 and Chronic GERD K21.9 [facility] [address] [place] [address] 75339- 1949 Jun, [facility] [id number] [place] [address] [id number] Jun, Mixed hyperlipidemia E78.2 [facility] [address] [address] Jun, [facility] [id number] [place] [address] 59533- 1780 May, [facility] [id number] [place] [address] 63620- 9194 May, [facility] [id number] [place] [address] 32536- 6452 May, [facility] [id number] [place] [address] 17519- 7082 May, [facility] [id number] [place] [address] 08565- 7766 May, [facility] [id number] [place] [address] 65564- 4734 May, Type 2 diabetes mellitus with diabetic polyneuropathy E11.42 ; PSVT (paroxysmal supraventricular tachycardia) I47.1 ; PAD (peripheral artery disease) I73.9 ; Chronic obstructive pulmonary disease, unspecified COPD type J44.9 and Skin sore L98.9 [facility] [id number] [place] [address] 09678- 4731 Apr, [facility] [id number] [place] [address] 08203- 4361 Apr, Type 2 diabetes mellitus with diabetic polyneuropathy E11.42 and Chronic GERD K21.9 [facility] [address] [address] 8776 Mar, [facility] [id number] [place] [address] 80970- 8695 Mar, [facility] [id number] [place] [address] 70308- 4177 Mar, [facility] [id number] [place] [address] 61388- 5408 Mar, Hypercholesteremia E78.0 ; Chronic obstructive pulmonary disease, unspecified COPD type J44.9 and PSVT (paroxysmal supraventricular tachycardia) I47.1 [facility] [id number] [place] [address] 82260- 6894 Mar, Type 2 diabetes mellitus with diabetic polyneuropathy E11.42 [facility] [id number] [place] [address] 64861- 1111 February, [facility] [id number] [place] [address] 93559- 4791 February, PSVT (paroxysmal supraventricular tachycardia) I47.1 [facility] [id number] [place] [address] 69868- 8885 February, COPD exacerbation J44.1 [facility] [id number] [place] [address] 45015- 1391 February, COPD exacerbation J44.1 [facility] [id number] [place] [address] 54196- 4083 February, [facility] [id number] [place] [address] 82518- 5591 February, [facility] [id number] [place] [address] 12111- 0296 February, Type 2 diabetes mellitus with diabetic polyneuropathy E11.42 and Chronic obstructive pulmonary disease, unspecified COPD type J44.9 [facility] [address] [address]- 8734 February, [facility] [address] [place] [address] 07584- 5822 Jan, Type 2 diabetes mellitus with diabetic polyneuropathy E11.42 and Chronic GERD K21.9 [facility] [address] [place] [address] 32622- 5846 Jan, Type 2 diabetes mellitus with diabetic polyneuropathy E11.42 ; Mixed hyperlipidemia E78.2 ; Chronic obstructive pulmonary disease, unspecified COPD type J44.9 ; Hematochezia K92.1 and Degenerative disc disease, lumbar M51.36 [facility] [address] [place] [address] [id number] Jan, Chronic ischemic heart disease I25.9 [facility] [id number] [place] [address] 57580- 0867 Jan, PAD (peripheral artery disease) I73.9 and Type 2 diabetes mellitus with diabetic polyneuropathy E11.42 [place] [address] 47016- 9873 Dec, Type 2 diabetes mellitus with diabetic polyneuropathy E11.42 ; Hematochezia K92.1 ; PAD (peripheral artery disease) I73.9 ; Chronic ischemic heart disease I25.9 and Weakness of left lower extremity R29.898 [facility] [id number] [place] [address] 03704- 6604 Dec, Type 2 diabetes mellitus with diabetic polyneuropathy E11.42 [facility] [id number] [place] [address] 47669- 2012 Nov, Type 2 diabetes mellitus with diabetic polyneuropathy E11.42 and PAD (peripheral artery disease) I73.9 [facility] [id number] [place] [address] 97103- 4280 Oct, Type 2 diabetes mellitus with diabetic polyneuropathy E11.42 [address] [place] [address] [id number] Oct, Type 2 diabetes mellitus with diabetic polyneuropathy E11.42 [facility] [facility] [id number] [place] [address] 14748- 6463 Oct, Type 2 diabetes mellitus with diabetic polyneuropathy E11.42 and Chronic GERD K21.9 [facility] [id number] [place] [address] 42647- 6609 Oct, Chronic GERD K21.9 [place] [id number] [place] [address] 81319- 8576 Sep, [facility] [address] [address]- 3726 Sep, [facility] [id number] [place] [address] 87092- 9955 Sep, Type 2 diabetes mellitus with diabetic polyneuropathy E11.42 [facility] [address] [address]- 3541 Aug, [facility] [id number] [place] [address] 65865- 5271 Aug, [facility] [address] [place] [address] 30765- 3460 Aug, [facility] [id number] [place] [address] 77460- 0997 Aug, Type 2 diabetes mellitus with diabetic polyneuropathy E11.42 [place] [id number] [place] [address] 38023- 5128 Jul, Type 2 diabetes mellitus with diabetic polyneuropathy E11.42 ; Chronic GERD K21.9 ; Hypercholesteremia E78.0 and PAD (peripheral artery disease) I73.9 [place] [address] [address]- 4141 Jul, Type 2 diabetes mellitus with diabetic polyneuropathy E11.42 [place] [address] [address]- 9063 Jul, [address] [id number] Jul, [facility] [address] [address]- 9634 Jul, Type 2 diabetes mellitus with diabetic polyneuropathy E11.42 [facility] [address] [address]- 3937 Jul, [address] [id number] Jul, Mixed hyperlipidemia E78.2 ; Hypertension, unspecified type I10 ; PAD ( peripheral artery disease) I73.9 and Chronic ischemic heart disease I25.9 [facility] [address] 14169- 4994 Jun, Type 2 diabetes mellitus with diabetic polyneuropathy E11.42 [facility] [address] 53962- 4610 Jun, Type 2 diabetes mellitus with diabetic polyneuropathy E11.42 [facility] [id number] [place] [address] [id number] Jun, [facility] [address] 65070- 9889 Jun, Type 2 diabetes mellitus with diabetic polyneuropathy E11.42 ; PAD (peripheral artery disease) I73.9 ; Hypercholesteremia E78.0 and Hypertension, unspecified type I10 [facility] [address] [id number] Jun, Type 2 diabetes mellitus with diabetic polyneuropathy E11.42 [facility] [address] 47518- 5627 May, [facility] [address] 67258- 4675 May, [facility] [id number] [place] [address] [id number] Apr, Abscess L02.91 [facility] [address] [id number] Apr, [facility] [id number] [place] [address] [id number] Apr, Dental caries K02.9 and Dental examination Z01.20 [facility] [address] [id number] Apr, Type 2 diabetes mellitus with diabetic polyneuropathy E11.42 [facility] [address] [id number] Mar, Type 2 diabetes mellitus with diabetic polyneuropathy E11.42 [facility] [address] [id number] [place] [id number] Mar, Abscess L02.91 and Type 2 diabetes mellitus with diabetic polyneuropathy E11.[address] [facility] [address] [id number] [place] [id number] February, Abscess L02.[address] [facility] [address] [id number] [place] [id number] Jan, [facility] [address] [id number] [place] [id number] Jan, Type 2 diabetes mellitus with diabetic polyneuropathy E11.[address] [facility] [address] [id number] [place] [id number] Jan, [facility] [address] [id number] [place] [id number] Jan, Abscess L02.91 [facility] [address] [id number] [place] [id number] Dec, Type 2 diabetes mellitus with diabetic polyneuropathy E11.[address] [facility] [address] [id number] [place] [id number] Nov, Type 2 diabetes mellitus with diabetic polyneuropathy E11.[address] [facility] [address] [id number] [place] [id number] Oct, Type 2 diabetes mellitus with diabetic polyneuropathy E11.[address] [facility] [address] [id number] [place] [id number] Oct, Type 2 diabetes mellitus with diabetic polyneuropathy E11.[address] [facility] [address] [id number] [place] [id number] Oct, Type 2 diabetes mellitus with diabetic polyneuropathy E11.42 and Hydrocele , unspecified hydrocele type N43.3 [facility] [address] [id number] [place] [id number] Sep, Enlarged testicle N50.89 [facility] [address] [id number] [place] [id number] Sep, Enlarged testicle N50.89 [facility] [id number] [place] [id number] Sep, Type 2 diabetes mellitus with diabetic polyneuropathy E11.42 [facility] [address] [id number] [place] [id number] Sep, [facility] [id number] [place] [address] [id number] Aug, Dyspepsia R10.13 and Type 2 diabetes mellitus with diabetic polyneuropathy E11.42 [facility] [address] [id number] [id number] Jul, [facility] [address] [id number] [place] [id number] Jul, Type 2 diabetes mellitus with diabetic polyneuropathy E11.42 and Dyspepsia R10.13 [facility] [address] [id number] [place] [id number] Jun, [facility] [address] [id number] [id number] Jun, [facility] [place] [address] [id number] [id number] Jun, Type 2 diabetes mellitus with diabetic polyneuropathy E11.42 and Boils L02.92 [facility] [place] [address] [id number] [id number] May, Type 2 diabetes mellitus with diabetic polyneuropathy E11.42 [facility] [place] [address] [id number] [id number] May, Type 2 diabetes mellitus with diabetic polyneuropathy E11.42 and Bloating R14.0 [facility] [place] [address] [id number] [id number] Apr, [facility] [id number] [id number] Apr, [facility] [address] [id number][place] [id number] Apr, Type 2 diabetes mellitus with diabetic polyneuropathy E11.42 [facility] [place] [address] [id number][place] [id number] Mar, [facility] [address] [id number][place] [id number] Mar, Type 2 diabetes mellitus with diabetic polyneuropathy E11.42 [facility] [address] [id number] [place] [id number] February, Type 2 diabetes mellitus with diabetic polyneuropathy E11.42 [facility] [address] [id number][place] [id number] February, Type 2 diabetes mellitus with diabetic polyneuropathy E11.42 [facility] [address] [facility] [id number][place] [id number] February, Type 2 diabetes mellitus with diabetic polyneuropathy E11.42 and Hypercholesteremia E78.0 [facility] [address] [facility] [id number][place] [id number] Jan, Type 2 diabetes mellitus with diabetic polyneuropathy E11.42 [facility] [address] [facility] [id number][place] [id number] Jan, Type 2 diabetes mellitus with diabetic polyneuropathy E11.42 IMMUNIZATIONS No Known Immunizations SOCIAL HISTORY Never Assessed REASON FOR VISIT Repository Medication PLAN OF CARE VITAL SIGNS MEDICATIONS Unknown [...] stents to the right coronary artery by [facility] 05/31/17 Hospitalization History ER Visit for increased heart rate and elevated blood sugar 08/2015 Hospitalization History Had tooth extracted and became septic, was in hospital for several days. 1999 Hospitalization History [facility] discharge dx PAD,CAD, and SVT. Pt has f/u scheduled with 06/0205/31/2016 Hospitalization History PSVT, Hypotension, CAD-[facility] 03/13/18
--- OUTSIDE RECORDS SUMMARY | 2019-03-03 11:16 | XMS REPORT ---
Author Author ESTRELLITA PANDYA Organization [facility] Address [address] [place] [address] Care Team Providers Care Outpatient Coding Specialist Name Role Phone ESTRELLITA PANDYA Unavailable PROBLEMS Type Condition ICD9-CM Code [id number] Code Onset Dates Condition Status SNOMED Code Problem Hypertension, unspecified type I10 Active 28672855 Problem Chronic GERD K21.9 Active 347862399 Problem PAD (peripheral artery disease) I73.9 Active 277253357 Problem 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 64287516 Problem PSVT (paroxysmal supraventricular tachycardia) I47.1 Active 30949145 Problem Chronic obstructive pulmonary disease, unspecified COPD type J44.9 Active 98396902 Problem Hematochezia K92.1 Active 281321335428393 Problem Chronic ischemic heart disease I25.9 Active 578650290 Problem Mixed hyperlipidemia E78.2 Active 525343493 Problem Degenerative disc disease, lumbar M51.36 Active 70460337 ALLERGIES No Information ENCOUNTERS Encounter Location Date Diagnosis [facility] [id number] [place] [address] 49024- 9141 Jul, [facility] [id number] [place] [address] 20580- 4869 Jul, [facility] [id number] [place] [address] 15948- 9307 Jul, [facility] [address] [place] [address] 46469- 8354 Jun, Type 2 diabetes mellitus with diabetic polyneuropathy E11.42 and Chronic GERD K21.9 [facility] [address] [place] [address] 32801- 2345 Jun, [facility] [id number] [place] [address] [id number] Jun, Mixed hyperlipidemia E78.2 [facility] [address] [address] 4[address] Jun, [facility] [id number] [place] [address] 16432- 4160 May, [facility] [id number] [place] [address] 40763- 0725 May, [facility] [id number] [place] [address] 26617- 9613 May, [facility] [id number] [place] [address] 98662- 9649 May, [facility] [id number] [place] [address] 52565- 2768 May, [facility] [id number] [place] [address] 97003- 2700 May, Type 2 diabetes mellitus with diabetic polyneuropathy E11.42 ; PSVT (paroxysmal supraventricular tachycardia) I47.1 ; PAD (peripheral artery disease) I73.9 ; Chronic obstructive pulmonary disease, unspecified COPD type J44.9 and Skin sore L98.9 [facility] [id number] [place] [address] 34909- 7989 Apr, [facility] [id number] [place] [address] 22044- 2803 Apr, Type 2 diabetes mellitus with diabetic polyneuropathy E11.42 and Chronic GERD K21.9 [facility] [address] [address] 5642 Mar, [facility] [id number] [place] [address] 85415- 6147 Mar, [facility] [id number] [place] [address] 81026- 1994 Mar, [facility] [id number] [place] [address] 43303- 8615 Mar, Hypercholesteremia E78.0 ; Chronic obstructive pulmonary disease, unspecified COPD type J44.9 and PSVT (paroxysmal supraventricular tachycardia) I47.1 [facility] [id number] [place] [address] 16290- 5663 Mar, Type 2 diabetes mellitus with diabetic polyneuropathy E11.42 [facility] [id number] [place] [address] 13085- 5970 February, [facility] [id number] [place] [address] 61559- 8628 February, PSVT (paroxysmal supraventricular tachycardia) I47.1 [facility] [id number] [place] [address] 98939- 5996 February, COPD exacerbation J44.1 [facility] [id number] [place] [address] 67970- 8590 February, COPD exacerbation J44.1 [facility] [id number] [place] [address] 99400- 6615 February, [facility] [id number] [place] [address] 89484- 1126 February, [facility] [id number] [place] [address] 10115- 6693 February, Type 2 diabetes mellitus with diabetic polyneuropathy E11.42 and Chronic obstructive pulmonary disease, unspecified COPD type J44.9 [facility] [id number] [address] 4105 February, [facility] [address] [place] [address] 51749- 8638 Jan, Type 2 diabetes mellitus with diabetic polyneuropathy E11.42 and Chronic GERD K21.9 [facility] [address] [place] [address] 59231- 7148 Jan, Type 2 diabetes mellitus with diabetic polyneuropathy E11.42 ; Mixed hyperlipidemia E78.2 ; Chronic obstructive pulmonary disease, unspecified COPD type J44.9 ; Hematochezia K92.1 and Degenerative disc disease, lumbar M51.36 [facility] [address] [place] [address] [phone] Jan, Chronic ischemic heart disease I25.9 [facility] [id number] [place] [address] 32038- 5448 Jan, PAD (peripheral artery disease) I73.9 and Type 2 diabetes mellitus with diabetic polyneuropathy E11.42 [facility] [address] 13873- 6698 Dec, Type 2 diabetes mellitus with diabetic polyneuropathy E11.42 ; Hematochezia K92.1 ; PAD (peripheral artery disease) I73.9 ; Chronic ischemic heart disease I25.9 and Weakness of left lower extremity R29.898 [facility] [id number] [place] [address] 22957- 4686 Dec, Type 2 diabetes mellitus with diabetic polyneuropathy E11.42 [facility] [id number] [place] [address] 12270- 6451 Nov, Type 2 diabetes mellitus with diabetic polyneuropathy E11.42 and PAD (peripheral artery disease) I73.9 [facility] [id number] [place] [address] 78294- 9572 Oct, Type 2 diabetes mellitus with diabetic polyneuropathy E11.42 [address] [place] [address] [phone] Oct, Type 2 diabetes mellitus with diabetic polyneuropathy E11.42 [facility] [id number] [place] [address] 48681- 8868 Oct, Type 2 diabetes mellitus with diabetic polyneuropathy E11.42 and Chronic GERD K21.9 [facility] [id number] [place] [address] 90657- 7173 Oct, Chronic GERD K21.9 [facility] [id number] [place] [address] 31711- 7585 Sep, [facility] [address], [place] [address]- 7222 Sep, [facility] [id number] [place] [address] 90773- 5104 Sep, Type 2 diabetes mellitus with diabetic polyneuropathy E11.42 [facility] [address], [place] [address]- 2747 Aug, [facility] [id number] [place] [address] 05834- 2830 Aug, [facility] [address] [place] [address] 17785- 5927 Aug, [facility] [id number] [place] [address] 48485- 1356 Aug, Type 2 diabetes mellitus with diabetic polyneuropathy E11.42 [facility] [id number] [place] [address] 26845- 5373 Jul, Type 2 diabetes mellitus with diabetic polyneuropathy E11.42 ; Chronic GERD K21.9 ; Hypercholesteremia E78.0 and PAD (peripheral artery disease) I73.9 [facility] [address] [address]- 7484 Jul, Type 2 diabetes mellitus with diabetic polyneuropathy E11.42 [facility] [address], [place] [address]- 8851 Jul, [address] [id number] Jul, [facility] [address], [place] [address]- 6400 Jul, Type 2 diabetes mellitus with diabetic polyneuropathy E11.42 [facility] [address] Jul, [address] [phone] Jul, Mixed hyperlipidemia E78.2 ; Hypertension, unspecified type I10 ; PAD ( peripheral artery disease) I73.9 and Chronic ischemic heart disease I25.9 [facility] [address] 26636- 4487 Jun, Type 2 diabetes mellitus with diabetic polyneuropathy E11.42 [facility] [address] 60617- 0558 Jun, Type 2 diabetes mellitus with diabetic polyneuropathy E11.42 [facility] [id number] [place] [address] [phone] Jun, [facility] [address] 53875- 9623 Jun, Type 2 diabetes mellitus with diabetic polyneuropathy E11.42 ; PAD (peripheral artery disease) I73.9 ; Hypercholesteremia E78.0 and Hypertension, unspecified type I10 [facility] [address] [id number] Jun, Type 2 diabetes mellitus with diabetic polyneuropathy E11.42 [facility] [address] 50200- 1339 May, [facility] [address] 20044- 0227 May, [facility] [id number] [place] [address] [phone] Apr, Abscess L02.91 [facility] [address] [id number] Apr, [facility] [id number] [place] [address] [id number] Apr, Dental caries K02.9 and Dental examination Z01.20 [facility] [address] [id number] Apr, Type 2 diabetes mellitus with diabetic polyneuropathy E11.42 [facility] [address] [id number] Mar, Type 2 diabetes mellitus with diabetic polyneuropathy E11.42 [facility] [address] [id number] [place] [id number] Mar, Abscess L02.91 and Type 2 diabetes mellitus with diabetic polyneuropathy E11.[address] [facility] [address] [id number] [place] [id number] February, Abscess L02.[address] [address] [id number] [place] [id number] Jan, [facility] [address] [id number] [place] [phone] Jan, Type 2 diabetes mellitus with diabetic polyneuropathy E11.[address] [facility] [address] [id number] [place] [phone] Jan, [facility] [address] [id number] [place] [phone] Jan, Abscess L02.[address] [facility] [address] [id number] [place] [id number] Dec, Type 2 diabetes mellitus with diabetic polyneuropathy E11.[address] [address] [id number] [place] [id number] Nov, Type 2 diabetes mellitus with diabetic polyneuropathy E11.[address] [facility] [address] [id number] [place] [id number] Oct, Type 2 diabetes mellitus with diabetic polyneuropathy E11.[address] [address] [id number] [place] [id number] Oct, Type 2 diabetes mellitus with diabetic polyneuropathy E11.[address] [address] [id number] [place] [phone] Oct, Type 2 diabetes mellitus with diabetic polyneuropathy E11.42 and Hydrocele , unspecified hydrocele type N43.[address] [facility] [address] [id number] [place] [phone] Sep, Enlarged testicle N50.[address] [facility] [address] [id number] [place] [id number] Sep, Enlarged testicle N50.[address] [facility] [id number] [place] [id number] Sep, Type 2 diabetes mellitus with diabetic polyneuropathy E11.[address] [facility] [address] [id number] [place] [phone] Sep, [facility] [id number] [place] [address] [id number] Aug, Dyspepsia R10.13 and Type 2 diabetes mellitus with diabetic polyneuropathy E11.[address] [facility] [address] [id number] [place] [id number] Jul, [facility] [address] [id number] [place] [id number] Jul, Type 2 diabetes mellitus with diabetic polyneuropathy E11.42 and Dyspepsia R10.[address] [facility] [address] [id number] [place] [phone] Jun, [facility] [address] [id number] [place] [id number] Jun, [facility] [address] [id number] [place] [phone] Jun, Type 2 diabetes mellitus with diabetic polyneuropathy E11.42 and Boils L02.92 [facility] [address] [id number] [place] [id number] May, Type 2 diabetes mellitus with diabetic polyneuropathy E11.42 [facility] [address] [id number] [place] [id number] May, Type 2 diabetes mellitus with diabetic polyneuropathy E11.42 and Bloating R14.0 [facility] [address] [id number] [place] [id number] Apr, [facility] [id number] [id number] Apr, [facility] [address] [id number] [place] [id number] Apr, Type 2 diabetes mellitus with diabetic polyneuropathy E11.42 [facility] [address] [id number] [place] [id number] Mar, [facility] [address] [id number] [place] [id number] Mar, Type 2 diabetes mellitus with diabetic polyneuropathy E11.42 [facility] [address] [id number] [place] [id number] February, Type 2 diabetes mellitus with diabetic polyneuropathy E11.42 [facility] [address] [id number] [place] [id number] February, Type 2 diabetes mellitus with diabetic polyneuropathy E11.42 [facility] [address] [id number] [place] [id number] February, Type 2 diabetes mellitus with diabetic polyneuropathy E11.42 and Hypercholesteremia E78.0 [facility] [address] [facility] [id number] [place] [id number] Jan, Type 2 diabetes mellitus with diabetic polyneuropathy E11.42 [facility] [address] [facility] [id number] [place] [id number] Jan, Type 2 diabetes mellitus with diabetic polyneuropathy E11.42 IMMUNIZATIONS No Known Immunizations SOCIAL HISTORY Never Assessed REASON FOR VISIT PALS IN-Lantus PLAN OF CARE VITAL SIGNS MEDICATIONS Unknown [...] stents to the right coronary artery by [facility] 05/31/17 Hospitalization History ER Visit for increased heart rate and elevated blood sugar 08/2015 Hospitalization History Had tooth extracted and became septic, was in hospital for several days. 1999 Hospitalization History [facility] discharge dx PAD,CAD, and SVT. Pt has f/u scheduled with 06/0205/31/2016 Hospitalization History PSVT, Hypotension, CAD-[facility] 03/13/18
--- OUTSIDE RECORDS SUMMARY | 2019-03-03 11:17 | XMS REPORT ---
Author Author ESTRELLITA PANDYA Organization [facility] Address [address] [place] [address] Care Team Providers Care Unit Reactor Operator Name Role Phone ESTRELLITA PANDYA Unavailable PROBLEMS Type Condition ICD9-CM Code WQB44-ES Code Onset Dates Condition Status SNOMED Code Problem Hypertension, unspecified type I10 Active 74831810 Problem Chronic GERD K21.9 Active 301129661 Problem PAD (peripheral artery disease) I73.9 Active 698595581 Problem 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 70681233 Problem PSVT (paroxysmal supraventricular tachycardia) I47.1 Active 71027114 Problem Chronic obstructive pulmonary disease, unspecified COPD type J44.9 Active 55805991 Problem Hematochezia K92.1 Active 561189880202164 Problem Chronic ischemic heart disease I25.9 Active 662468733 Problem Mixed hyperlipidemia E78.2 Active 205371309 Problem Degenerative disc disease, lumbar M51.36 Active 12294373 ALLERGIES No Information ENCOUNTERS Encounter Location Date Diagnosis [facility] [id number] [place] [address] 62289- 2340 Jun, Type 2 diabetes mellitus with diabetic polyneuropathy E11.42 and Chronic GERD K21.9 [facility] [id number] [address] Jun, [facility] [address] [facility] [id number] [id number] Jun, Mixed hyperlipidemia E78.2 [facility] [id number] [place] [address] 56440- 6576 Jun, [facility] [address] [place] [address] 36363- 0324 May, [facility] [id number] [place] [address] 18305- 9411 May, [facility] [address] [place] [address] 50328- 2160 May, [facility] [id number] [place] [address] 79142- 3619 May, [facility] [id number] [place] [address] 70099- 3329 May, [facility] [id number] [place] [address] 22521- 5031 May, Type 2 diabetes mellitus with diabetic polyneuropathy E11.42 ; PSVT (paroxysmal supraventricular tachycardia) I47.1 ; PAD (peripheral artery disease) I73.9 ; Chronic obstructive pulmonary disease, unspecified COPD type J44.9 and Skin sore L98.9 [facility] [id number] [place] [address] 01879- 2292 Apr, [facility] [id number] [place] [address] 69841- 3086 Apr, Type 2 diabetes mellitus with diabetic polyneuropathy E11.42 and Chronic GERD K21.9 [facility] [id number] [place] [address] 86953- 5318 Mar, [facility] [id number] [place] [address] 76066- 8050 Mar, [facility] [id number] [place] [address] 74031- 6552 Mar, [facility] [id number] [place] [address] 68746- 2808 Mar, Hypercholesteremia E78.0 ; Chronic obstructive pulmonary disease, unspecified COPD type J44.9 and PSVT (paroxysmal supraventricular tachycardia) I47.1 [facility] [address] [address]80 Mar, Type 2 diabetes mellitus with diabetic polyneuropathy E11.42 [facility] [id number] [place] [address] 81180- 6177 February, [facility] [id number] [place] [address] 29999- 0662 February, PSVT (paroxysmal supraventricular tachycardia) I47.1 [facility] [id number] [place] [address] 30896- 3486 February, COPD exacerbation J44.1 [facility] [id number] [place] [address] 59093- 7966 February, COPD exacerbation J44.1 [facility] [id number] [place] [address] 91819- 5524 February, [facility] [id number] [place] [address] 39942- 5634 February, [facility] [id number] [place] [address] 33031- 4204 February, Type 2 diabetes mellitus with diabetic polyneuropathy E11.42 and Chronic obstructive pulmonary disease, unspecified COPD type J44.9 [facility] [address] [place] [address] 90187- 4983 February, [facility] [id number] [place] [address] 31312- 3936 Jan, Type 2 diabetes mellitus with diabetic polyneuropathy E11.42 and Chronic GERD K21.9 [facility] [address] [place] [address] 12560- 7525 Jan, Type 2 diabetes mellitus with diabetic polyneuropathy E11.42 ; Mixed hyperlipidemia E78.2 ; Chronic obstructive pulmonary disease, unspecified COPD type J44.9 ; Hematochezia K92.1 and Degenerative disc disease, lumbar M51.36 [address] [id number] Jan, Chronic ischemic heart disease I25.9 [facility] [address] [place] [address] 11340- 7685 Jan, PAD (peripheral artery disease) I73.9 and Type 2 diabetes mellitus with diabetic polyneuropathy E11.42 [facility] [address], [place] [address]45 Dec, Type 2 diabetes mellitus with diabetic polyneuropathy E11.42 ; Hematochezia K92.1 ; PAD (peripheral artery disease) I73.9 ; Chronic ischemic heart disease I25.9 and Weakness of left lower extremity R29.898 [facility] [address] [address] 5369 Dec, Type 2 diabetes mellitus with diabetic polyneuropathy E11.42 [facility] [address] [place] [address] 18044- 6423 Nov, Type 2 diabetes mellitus with diabetic polyneuropathy E11.42 and PAD (peripheral artery disease) I73.9 [facility] [address] [address] 3219 Oct, Type 2 diabetes mellitus with diabetic polyneuropathy E11.42 [address] [id number] Oct, Type 2 diabetes mellitus with diabetic polyneuropathy E11.42 [facility] [address] [address]- 1643 Oct, Type 2 diabetes mellitus with diabetic polyneuropathy E11.42 and Chronic GERD K21.9 [facility] [address], [place] [address]- 1480 Oct, Chronic GERD K21.9 [facility] [address], [place] [address]- 5109 Sep, [facility] [address], [place] [address]- 2152 Sep, [facility] [address], [place] [address]- 8209 Sep, Type 2 diabetes mellitus with diabetic polyneuropathy E11.42 [facility] [address] [place] [address] 31931- 3956 Aug, [facility] [address] [address]- 9118 Aug, [facility] [address] [place] [address] 52364- 0273 Aug, [facility] [id number] [place] [address] 19203- 1779 Aug, Type 2 diabetes mellitus with diabetic polyneuropathy E11.42 [facility] [id number] [place] [address] 82723- 9091 Jul, Type 2 diabetes mellitus with diabetic polyneuropathy E11.42 ; Chronic GERD K21.9 ; Hypercholesteremia E78.0 and PAD (peripheral artery disease) I73.9 [facility] [id number] [address]- 9151 Jul, Type 2 diabetes mellitus with diabetic polyneuropathy E11.42 [facility] [id number] [place] [address] 86607- 4917 Jul, [address] [place] [address] [id number] Jul, [facility] [address] [place] [address] 95236- 6098 Jul, Type 2 diabetes mellitus with diabetic polyneuropathy E11.42 [facility] [address] [place] [address] 17458- 1682 Jul, [facility] [id number] [place] [address] [id number] Jul, Mixed hyperlipidemia E78.2 ; Hypertension, unspecified type I10 ; PAD ( peripheral artery disease) I73.9 and Chronic ischemic heart disease I25.9 [facility] [address] [place] [address] 40442- 7433 Jun, Type 2 diabetes mellitus with diabetic polyneuropathy E11.42 [facility] [id number] [place] [address] 93567- 7717 Jun, Type 2 diabetes mellitus with diabetic polyneuropathy E11.42 [facility] [id number] [place] [address] [id number] Jun, [facility] [id number] [place] [address] 34582- 4710 Jun, Type 2 diabetes mellitus with diabetic polyneuropathy E11.42 ; PAD (peripheral artery disease) I73.9 ; Hypercholesteremia E78.0 and Hypertension, unspecified type I10 [facility] [id number] [place] [address] [phone] Jun, Type 2 diabetes mellitus with diabetic polyneuropathy E11.42 [facility] [address] [address] 2546 May, [facility] [id number] [place] [address] 31948- 9796 May, [facility] [id number] [place] [address] [phone] Apr, Abscess L02.91 [facility] [id number] [place] [address] [id number] Apr, [facility] [id number] [place] [address] [phone] Apr, Dental caries K02.9 and Dental examination Z01.20 [facility] [address] [place] [address] [id number] Apr, Type 2 diabetes mellitus with diabetic polyneuropathy E11.42 [facility] [id number] [place] [address] [id number] Mar, Type 2 diabetes mellitus with diabetic polyneuropathy E11.42 [facility] [id number] [place] [address] [id number] Mar, Abscess L02.91 and Type 2 diabetes mellitus with diabetic polyneuropathy E11.42 [facility] [id number] [place] [address] [id number] February, Abscess L02.91 [facility] [id number] [place] [address] [phone] Jan, [facility] [place] [address] [id number] [phone] Jan, Type 2 diabetes mellitus with diabetic polyneuropathy E11.42 [facility] [address] [id number] [place] [phone] Jan, [facility] [address] [id number] [id number] Jan, Abscess L02.91 [facility] [id number] [place] [address] [id number] Dec, Type 2 diabetes mellitus with diabetic polyneuropathy E11.42 [facility] [id number] [place] [address] [id number] Nov, Type 2 diabetes mellitus with diabetic polyneuropathy E11.42 [facility] [id number] [place] [address] [id number] Oct, Type 2 diabetes mellitus with diabetic polyneuropathy E11.42 [facility] [id number] [place] [address] [id number] Oct, Type 2 diabetes mellitus with diabetic polyneuropathy E11.42 [facility] [id number] [place] [address] [id number] Oct, Type 2 diabetes mellitus with diabetic polyneuropathy E11.42 and Hydrocele , unspecified hydrocele type N43.3 [facility] [address] [id number][place] [phone] Sep, Enlarged testicle N50.89 [facility] [address] [id number][place] [id number] Sep, Enlarged testicle N50.89 [facility] [address] [id number][place] [id number] Sep, Type 2 diabetes mellitus with diabetic polyneuropathy E11.42 [facility] [id number] [place] [address] [id number] Sep, [facility] [address] [id number][place] [phone] Aug, Dyspepsia R10.13 and Type 2 diabetes mellitus with diabetic polyneuropathy E11.42 [facility] [address] [id number][place] [id number] Jul, [facility] [address] [id number][place] [phone] Jul, Type 2 diabetes mellitus with diabetic polyneuropathy E11.42 and Dyspepsia R10.13 [facility] [address] [id number] [phone] Jun, [facility] [address] [id number], [place] [phone] Jun, [facility] [address] [id number], [place] [id number] Jun, Type 2 diabetes mellitus with diabetic polyneuropathy E11.42 and Boils L02.92 [facility] [address] [id number], [place] [phone] May, Type 2 diabetes mellitus with diabetic polyneuropathy E11.42 [facility] [address] [id number][place] [id number] May, Type 2 diabetes mellitus with diabetic polyneuropathy E11.42 and Bloating R14.0 [facility] [address] [id number], [place] [id number] Apr, [facility] [address] [id number] [place] [phone] Apr, [facility] [address] [id number], [place] [id number] Apr, Type 2 diabetes mellitus with diabetic polyneuropathy E11.42 [facility] [address] [id number], [place] [id number] Mar, [facility] [address] [id number], [place] [id number] Mar, Type 2 diabetes mellitus with diabetic polyneuropathy E11.42 [facility] [address] [id number], [place] [phone] February, Type 2 diabetes mellitus with diabetic polyneuropathy E11.42 [facility] [address] [id number], [place] [id number] February, Type 2 diabetes mellitus with diabetic polyneuropathy E11.42 [facility] [address] [id number] [place] [id number] February, Type 2 diabetes mellitus with diabetic polyneuropathy E11.42 and Hypercholesteremia E78.0 [facility] 120 [facility] [id number] [place] [phone] Jan, Type 2 diabetes mellitus with diabetic polyneuropathy E11.42 [facility] [address] [facility] [id number] [place] [phone] Jan, Type 2 diabetes mellitus with diabetic polyneuropathy E11.42 IMMUNIZATIONS No Known Immunizations SOCIAL HISTORY Never Assessed REASON FOR VISIT question PLAN OF CARE VITAL SIGNS MEDICATIONS Unknown [...] stents to the right coronary artery by [facility] 05/31/17 Hospitalization History ER Visit for increased heart rate and elevated blood sugar 08/2015 Hospitalization History Had tooth extracted and became septic, was in hospital for several days. 1999 Hospitalization History [facility] discharge dx PAD,CAD, and SVT. Pt has f/u scheduled with 06/0205/31/2016 Hospitalization History PSVT, Hypotension, CAD-[facility] 03/13/18
--- OUTSIDE RECORDS SUMMARY | 2019-03-03 11:17 | XMS REPORT ---
Author Author ESTRELLITA PANDYA Organization [facility] Address [address] [place] [address] Care Team Providers Care Driver/Guide Name Role Phone ESTRELLITA PANDYA Unavailable PROBLEMS Type Condition ICD9-CM Code VFZ03-KL Code Onset Dates Condition Status SNOMED Code Problem Hypertension, unspecified type I10 Active 59464255 Problem Chronic GERD K21.9 Active 882836559 Problem PAD (peripheral artery disease) I73.9 Active 574716234 Problem 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 88172287 Problem PSVT (paroxysmal supraventricular tachycardia) I47.1 Active 96600843 Problem Chronic obstructive pulmonary disease, unspecified COPD type J44.9 Active 42499597 Problem Hematochezia K92.1 Active [id number] Problem Chronic ischemic heart disease I25.9 Active 172393195 Problem Mixed hyperlipidemia E78.2 Active 278930626 Problem Degenerative disc disease, lumbar M51.36 Active 75137205 ALLERGIES No Information ENCOUNTERS Encounter Location Date Diagnosis [facility] [address] [place] [address] 54323- 9063 Jun, Type 2 diabetes mellitus with diabetic polyneuropathy E11.42 and Chronic GERD K21.9 [facility] [id number] [address] Jun, [facility] [address] [facility] [id number] [id number] Jun, Mixed hyperlipidemia E78.2 [facility] [id number] [place] [address] 06923- 0100 Jun, [facility] [address] [place] [address] 45301- 6599 May, [facility] [id number] [place] [address] 61791- 0645 May, [facility] [address] [place] [address] 88800- 0442 May, [facility] [id number] [place] [address] 93868- 0943 May, [facility] [id number] [place] [address] 04657- 7438 May, [facility] [id number] [place] [address] 14252- 9571 May, Type 2 diabetes mellitus with diabetic polyneuropathy E11.42 ; PSVT (paroxysmal supraventricular tachycardia) I47.1 ; PAD (peripheral artery disease) I73.9 ; Chronic obstructive pulmonary disease, unspecified COPD type J44.9 and Skin sore L98.9 [facility] [id number] [place] [address] 44263- 5030 Apr, [facility] [id number] [place] [address] 79090- 8411 Apr, Type 2 diabetes mellitus with diabetic polyneuropathy E11.42 and Chronic GERD K21.9 [facility] [id number] [place] [address] 52620- 3560 Mar, [facility] [id number] [place] [address] 48221- 4187 Mar, [facility] [id number] [place] [address] 83625- 4088 Mar, [facility] [id number] [place] [address] 66925- 5070 Mar, Hypercholesteremia E78.0 ; Chronic obstructive pulmonary disease, unspecified COPD type J44.9 and PSVT (paroxysmal supraventricular tachycardia) I47.1 [facility] [address] [address] Mar, Type 2 diabetes mellitus with diabetic polyneuropathy E11.42 [facility] [id number] [place] [address] 92983- 4195 February, [facility] [id number] [place] [address] 68877- 0257 February, PSVT (paroxysmal supraventricular tachycardia) I47.1 [facility] [id number] [place] [address] 97561- 4385 February, COPD exacerbation J44.1 [facility] [id number] [place] [address] 25543- 2718 February, COPD exacerbation J44.1 [facility] [id number] [place] [address] 37017- 2326 February, [facility] [id number] [place] [address] 62616- 4572 February, [facility] [id number] [place] [address] 65703- 7413 February, Type 2 diabetes mellitus with diabetic polyneuropathy E11.42 and Chronic obstructive pulmonary disease, unspecified COPD type J44.9 [facility] [address] [place] [address] 49355- 6427 February, [facility] [id number] [place] [address] 84957- 5568 Jan, Type 2 diabetes mellitus with diabetic polyneuropathy E11.42 and Chronic GERD K21.9 [facility] [address] [place] [address] 50046- 9107 Jan, Type 2 diabetes mellitus with diabetic polyneuropathy E11.42 ; Mixed hyperlipidemia E78.2 ; Chronic obstructive pulmonary disease, unspecified COPD type J44.9 ; Hematochezia K92.1 and Degenerative disc disease, lumbar M51.36 [address] [phone] Jan, Chronic ischemic heart disease I25.9 [facility] [address] [place] [address] 44815- 6020 Jan, PAD (peripheral artery disease) I73.9 and Type 2 diabetes mellitus with diabetic polyneuropathy E11.42 [facility] [address] [address] Dec, Type 2 diabetes mellitus with diabetic polyneuropathy E11.42 ; Hematochezia K92.1 ; PAD (peripheral artery disease) I73.9 ; Chronic ischemic heart disease I25.9 and Weakness of left lower extremity R29.898 [facility] [address], [place] [address] Dec, Type 2 diabetes mellitus with diabetic polyneuropathy E11.42 [facility] [address] [place] [address] 28162- 8033 Nov, Type 2 diabetes mellitus with diabetic polyneuropathy E11.42 and PAD (peripheral artery disease) I73.9 [facility] [address] [address] 6827 Oct, Type 2 diabetes mellitus with diabetic polyneuropathy E11.42 [address] [id number] Oct, Type 2 diabetes mellitus with diabetic polyneuropathy E11.42 [facility] [address] [address] 2370 Oct, Type 2 diabetes mellitus with diabetic polyneuropathy E11.42 and Chronic GERD K21.9 [facility] [address] [address] 8965 Oct, Chronic GERD K21.9 [facility] [address] [address] 65[address] Sep, [facility] [address] [address] 6231 Sep, [facility] [address], [place] [address] 2964 Sep, Type 2 diabetes mellitus with diabetic polyneuropathy E11.42 [facility] [address] [place] [address] 46081- 5779 Aug, [facility] [address] [address] 3620 Aug, [facility] [address] [place] [address] 96058- 3624 Aug, [facility] [id number] [place] [address] 56140- 0984 Aug, Type 2 diabetes mellitus with diabetic polyneuropathy E11.42 [facility] [id number] [place] [address] 40465- 1009 Jul, Type 2 diabetes mellitus with diabetic polyneuropathy E11.42 ; Chronic GERD K21.9 ; Hypercholesteremia E78.0 and PAD (peripheral artery disease) I73.9 [facility] [id number] [address] 7082 Jul, Type 2 diabetes mellitus with diabetic polyneuropathy E11.42 [facility] [id number] [place] [address] 34087- 6233 Jul, [address] [place] [address] [id number] Jul, [facility] [address] [place] [address] 40550- 4540 Jul, Type 2 diabetes mellitus with diabetic polyneuropathy E11.42 [facility] [address] [place] [address] 71099- 3089 Jul, [facility] [id number] [place] [address] [phone] Jul, Mixed hyperlipidemia E78.2 ; Hypertension, unspecified type I10 ; PAD ( peripheral artery disease) I73.9 and Chronic ischemic heart disease I25.9 [place] [address] [place] [address] 17429- 4281 Jun, Type 2 diabetes mellitus with diabetic polyneuropathy E11.42 [facility] [id number] [place] [address] 64579- 0395 Jun, Type 2 diabetes mellitus with diabetic polyneuropathy E11.42 [facility] [id number] [place] [address] [phone] Jun, [facility] [id number] [place] [address] 98917- 2813 Jun, Type 2 diabetes mellitus with diabetic polyneuropathy E11.42 ; PAD (peripheral artery disease) I73.9 ; Hypercholesteremia E78.0 and Hypertension, unspecified type I10 [facility] [id number] [place] [address] [phone] Jun, Type 2 diabetes mellitus with diabetic polyneuropathy E11.42 [facility] [address] [address] 2546 May, [facility] [id number] [place] [address] 01816- 7851 May, [facility] [id number] [place] [address] [phone] Apr, Abscess L02.91 [facility] [id number] [place] [address] [id number] Apr, [facility] [id number] [place] [address] [phone] Apr, Dental caries K02.9 and Dental examination Z01.20 [facility] [address] [place] [address] [phone] Apr, Type 2 diabetes mellitus with diabetic polyneuropathy E11.42 [facility] [id number] [place] [address] [id number] Mar, Type 2 diabetes mellitus with diabetic polyneuropathy E11.42 [facility] [id number] [place] [address] [phone] Mar, Abscess L02.91 and Type 2 diabetes mellitus with diabetic polyneuropathy E11.42 [facility] [id number] [place] [address] [phone] February, Abscess L02.91 [facility] [id number] [place] [address] [id number] Jan, [facility] [address] [id number] [place] [phone] Jan, Type 2 diabetes mellitus with diabetic polyneuropathy E11.42 [facility] [address] [id number] [place] [phone] Jan, [facility] [address] [id number] [phone] Jan, Abscess L02.91 [facility] [id number] [place] [address] [id number] Dec, Type 2 diabetes mellitus with diabetic polyneuropathy E11.42 [facility] [id number] [place] [address] [id number] Nov, Type 2 diabetes mellitus with diabetic polyneuropathy E11.42 [facility] [id number] [place] [address] [phone] Oct, Type 2 diabetes mellitus with diabetic polyneuropathy E11.42 [facility] [id number] [place] [address] [id number] Oct, Type 2 diabetes mellitus with diabetic polyneuropathy E11.42 [facility] [id number] [place] [address] [id number] Oct, Type 2 diabetes mellitus with diabetic polyneuropathy E11.42 and Hydrocele , unspecified hydrocele type N43.3 [facility] [address] [id number] [place] [phone] Sep, Enlarged testicle N50.89 [facility] [address] [id number] [id number] Sep, Enlarged testicle N50.89 [facility] [address] [id number] [place] [phone] Sep, Type 2 diabetes mellitus with diabetic polyneuropathy E11.42 [facility] [id number] [place] [address] [id number] Sep, [facility] [address] [id number] [id number] Aug, Dyspepsia R10.13 and Type 2 diabetes mellitus with diabetic polyneuropathy E11.42 [facility] [address] [id number] [place] [phone] Jul, [facility] [address] [id number] [place] [phone] Jul, Type 2 diabetes mellitus with diabetic polyneuropathy E11.42 and Dyspepsia R10.13 [facility] [address] [id number] [phone] Jun, [facility] [address] [id number] [place] [phone] Jun, [facility] [address] [id number] [place] [phone] Jun, Type 2 diabetes mellitus with diabetic polyneuropathy E11.42 and Boils L02.92 [facility] [address] [id number] [place] [phone] May, Type 2 diabetes mellitus with diabetic polyneuropathy E11.42 [facility] [address] [id number] [place] [phone] May, Type 2 diabetes mellitus with diabetic polyneuropathy E11.42 and Bloating R14.0 [facility] [address] [id number] [place] [phone] Apr, [facility] [address] [id number] [id number] Apr, [facility] [address] [id number] [place] [phone] Apr, Type 2 diabetes mellitus with diabetic polyneuropathy E11.42 [facility] [address] [id number] [place] [id number] Mar, [facility] [address] [id number] [place] [phone] Mar, Type 2 diabetes mellitus with diabetic polyneuropathy E11.42 [facility] [address] [id number] [place] [phone] February, Type 2 diabetes mellitus with diabetic polyneuropathy E11.42 [facility] [address] [id number] [place] [phone] February, Type 2 diabetes mellitus with diabetic polyneuropathy E11.42 [facility] [address] [id number] [place] [phone] February, Type 2 diabetes mellitus with diabetic polyneuropathy E11.42 and Hypercholesteremia E78.0 [facility] 120 [facility] [id number] [place] [id number] Jan, Type 2 diabetes mellitus with diabetic polyneuropathy E11.42 [facility] 120 [facility] [id number] [place] [phone] Jan, Type 2 diabetes mellitus with diabetic polyneuropathy E11.42 IMMUNIZATIONS No Known Immunizations SOCIAL HISTORY Never Assessed REASON FOR VISIT Requests return call PLAN OF CARE VITAL SIGNS MEDICATIONS Medication Instructions Dosage Frequency Start Date End Date Duration Status Accu-Chek Britt test strips test blood sugar 8h Jan, Active RESULTS No Results PROCEDURES No Known [...] stents to the right coronary artery by [facility] 05/31/17 Hospitalization History ER Visit for increased heart rate and elevated blood sugar 08/2015 Hospitalization History Had tooth extracted and became septic, was in hospital for several days. 1999 Hospitalization History [facility] discharge dx PAD,CAD, and SVT. Pt has f/u scheduled with 06/0205/31/2016 Hospitalization History PSVT, Hypotension, CAD-[facility] 03/13/18
--- OUTSIDE RECORDS SUMMARY | 2019-03-03 11:17 | XMS REPORT ---
Author Author ESTRELLITA PANDYA Organization [facility] Address [address] [place] [address] Care Team Providers Care Contractor General Building Name Role Phone ESTRELLITA PANDYA Unavailable PROBLEMS Type Condition ICD9-CM Code EWO09-TJ Code Onset Dates Condition Status SNOMED Code Problem Hypertension, unspecified type I10 Active 47758900 Problem Chronic GERD K21.9 Active 494022891 Problem PAD (peripheral artery disease) I73.9 Active 834558117 Problem 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 50256982 Problem PSVT (paroxysmal supraventricular tachycardia) I47.1 Active 06241244 Problem Chronic obstructive pulmonary disease, unspecified COPD type J44.9 Active 69516752 Problem Hematochezia K92.1 Active 854269185777011 Problem Chronic ischemic heart disease I25.9 Active 413809057 Problem Mixed hyperlipidemia E78.2 Active 159867418 Problem Degenerative disc disease, lumbar M51.36 Active 09945698 ALLERGIES No Information ENCOUNTERS Encounter Location Date Diagnosis [facility] [id number] [place] [address] 14647- 0917 Jun, Type 2 diabetes mellitus with diabetic polyneuropathy E11.42 and Chronic GERD K21.9 [facility] [id number] [address] Jun, [facility] [address] [facility] [id number] [phone] Jun, Mixed hyperlipidemia E78.2 [facility] [id number] [place] [address] 78868- 3770 Jun, [facility] [address] [place] [address] 06851- 1506 May, [facility] [id number] [place] [address] 32505- 1007 May, [facility] [address] [place] [address] 93573- 8477 May, [facility] [id number] [place] [address] 20096- 9042 May, [facility] [id number] [place] [address] 55851- 0659 May, [facility] [id number] [place] [address] 50688- 5950 May, Type 2 diabetes mellitus with diabetic polyneuropathy E11.42 ; PSVT (paroxysmal supraventricular tachycardia) I47.1 ; PAD (peripheral artery disease) I73.9 ; Chronic obstructive pulmonary disease, unspecified COPD type J44.9 and Skin sore L98.9 [facility] [id number] [place] [address] 16249- 7737 Apr, [facility] [id number] [place] [address] 69250- 6038 Apr, Type 2 diabetes mellitus with diabetic polyneuropathy E11.42 and Chronic GERD K21.9 [facility] [id number] [place] [address] 03365- 8292 Mar, [facility] [id number] [place] [address] 40218- 9957 Mar, [facility] [id number] [place] [address] 58948- 1699 Mar, [facility] [id number] [place] [address] 51160- 1515 Mar, Hypercholesteremia E78.0 ; Chronic obstructive pulmonary disease, unspecified COPD type J44.9 and PSVT (paroxysmal supraventricular tachycardia) I47.1 [facility] [address] [address] 43[address] Mar, Type 2 diabetes mellitus with diabetic polyneuropathy E11.42 [facility] [id number] [place] [address] 60136- 0743 February, [facility] [id number] [place] [address] 20089- 4937 February, PSVT (paroxysmal supraventricular tachycardia) I47.1 [facility] [id number] [place] [address] 50674- 4207 February, COPD exacerbation J44.1 [facility] [id number] [place] [address] 97551- 5651 February, COPD exacerbation J44.1 [place] [facility] [id number] [place] [address] 36370- 8441 February, [facility] [id number] [place] [address] 20511- 8774 February, [facility] [id number] [place] [address] 87349- 0029 February, Type 2 diabetes mellitus with diabetic polyneuropathy E11.42 and Chronic obstructive pulmonary disease, unspecified COPD type J44.9 [facility] [address] [place] [address] 28608- 3681 February, [facility] [id number] [place] [address] 47937- 4498 Jan, Type 2 diabetes mellitus with diabetic polyneuropathy E11.42 and Chronic GERD K21.9 [facility] [address] [place] [address] 21078- 0475 Jan, Type 2 diabetes mellitus with diabetic polyneuropathy E11.42 ; Mixed hyperlipidemia E78.2 ; Chronic obstructive pulmonary disease, unspecified COPD type J44.9 ; Hematochezia K92.1 and Degenerative disc disease, lumbar M51.36 [address] [id number] Jan, Chronic ischemic heart disease I25.9 [facility] [address] [place] [address] 15151- 7420 Jan, PAD (peripheral artery disease) I73.9 and Type 2 diabetes mellitus with diabetic polyneuropathy E11.42 [facility] [address] [address] 4772 Dec, Type 2 diabetes mellitus with diabetic polyneuropathy E11.42 ; Hematochezia K92.1 ; PAD (peripheral artery disease) I73.9 ; Chronic ischemic heart disease I25.9 and Weakness of left lower extremity R29.898 [facility] [address] [address] 4312 Dec, Type 2 diabetes mellitus with diabetic polyneuropathy E11.42 [facility] [address] [place] [address] 82297- 0375 Nov, Type 2 diabetes mellitus with diabetic polyneuropathy E11.42 and PAD (peripheral artery disease) I73.9 [facility] [address] [address] 4808 Oct, Type 2 diabetes mellitus with diabetic polyneuropathy E11.42 [address] [id number] Oct, Type 2 diabetes mellitus with diabetic polyneuropathy E11.42 [facility] [address] [address]- 7950 Oct, Type 2 diabetes mellitus with diabetic polyneuropathy E11.42 and Chronic GERD K21.9 [facility] [address] [address] 0191 Oct, Chronic GERD K21.9 [facility] [address] [address]- 3228 Sep, [facility] [address] [address]- 5181 Sep, [facility] [address] [address]- 0459 Sep, Type 2 diabetes mellitus with diabetic polyneuropathy E11.42 [facility] [address] [place] [address] 53113- 8534 Aug, [facility] [address] [address]- 1798 Aug, [facility] [address] [place] [address] 01418- 6922 Aug, [facility] [id number] [place] [address] 69615- 1638 Aug, Type 2 diabetes mellitus with diabetic polyneuropathy E11.42 [facility] [id number] [place] [address] 84901- 5246 Jul, Type 2 diabetes mellitus with diabetic polyneuropathy E11.42 ; Chronic GERD K21.9 ; Hypercholesteremia E78.0 and PAD (peripheral artery disease) I73.9 [facility] [id number] [address]- 7060 Jul, Type 2 diabetes mellitus with diabetic polyneuropathy E11.42 [facility] [id number] [place] [address] 13454- 2494 Jul, [address] [place] [address] [id number] Jul, [place] [facility] [address] [place] [address] 75309- 3958 Jul, Type 2 diabetes mellitus with diabetic polyneuropathy E11.42 [facility] [address] [place] [address] 47122- 1609 Jul, [facility] [id number] [place] [address] [id number] Jul, Mixed hyperlipidemia E78.2 ; Hypertension, unspecified type I10 ; PAD ( peripheral artery disease) I73.9 and Chronic ischemic heart disease I25.9 [place] [address] [place] [address] 10396- 2275 Jun, Type 2 diabetes mellitus with diabetic polyneuropathy E11.42 [facility] [id number] [place] [address] 47377- 0921 Jun, Type 2 diabetes mellitus with diabetic polyneuropathy E11.42 [facility] [id number] [place] [address] [id number] Jun, [facility] [id number] [place] [address] 27203- 1060 Jun, Type 2 diabetes mellitus with diabetic polyneuropathy E11.42 ; PAD (peripheral artery disease) I73.9 ; Hypercholesteremia E78.0 and Hypertension, unspecified type I10 [facility] [id number] [place] [address] [id number] Jun, Type 2 diabetes mellitus with diabetic polyneuropathy E11.42 [facility] [address] [address] 2546 May, [facility] [id number] [place] [address] 14985- 9186 May, [facility] [id number] [place] [address] [id number] Apr, Abscess L02.91 [facility] [id number] [place] [address] [id number] Apr, [facility] [id number] [place] [address] [phone] Apr, Dental caries K02.9 and Dental examination Z01.20 [facility] [address] [place] [address] [id number] Apr, Type 2 diabetes mellitus with diabetic polyneuropathy E11.42 [facility] [id number] [place] [address] [id number] Mar, Type 2 diabetes mellitus with diabetic polyneuropathy E11.42 [facility] [id number] [place] [address] [id number] Mar, Abscess L02.91 and Type 2 diabetes mellitus with diabetic polyneuropathy E11.42 [facility] [id number] [place] [address] [phone] February, Abscess L02.91 [facility] [place] [id number] [place] [address] [id number] Jan, [facility] [place] [address] [id number] [phone] Jan, Type 2 diabetes mellitus with diabetic polyneuropathy E11.42 [facility] [place] [address] [id number] [place] [phone] Jan, [facility] [place] [address] [id number] [phone] Jan, Abscess L02.91 [facility] [place] [id number] [place] [address] [id number] Dec, Type 2 diabetes mellitus with diabetic polyneuropathy E11.42 [facility] [place] [address] [id number] [place] [address] [phone] Nov, Type 2 diabetes mellitus with diabetic polyneuropathy E11.42 [facility] [place] [id number] [place] [address] [id number] Oct, Type 2 diabetes mellitus with diabetic polyneuropathy E11.42 [facility] [place] [id number] [place] [address] [id number] Oct, Type 2 diabetes mellitus with diabetic polyneuropathy E11.42 [facility] [place] [id number] [place] [address] [id number] Oct, Type 2 diabetes mellitus with diabetic polyneuropathy E11.42 and Hydrocele , unspecified hydrocele type N43.3 [facility] [address] [id number][place] [phone] Sep, Enlarged testicle N50.89 [facility] [address] [id number] [phone] Sep, Enlarged testicle N50.89 [facility] [address] [id number][place] [phone] Sep, Type 2 diabetes mellitus with diabetic polyneuropathy E11.42 [facility] [place] [id number] [place] [address] [id number] Sep, [facility] [place] [address] [id number][place] [phone] Aug, Dyspepsia R10.13 and Type 2 diabetes mellitus with diabetic polyneuropathy E11.42 [facility] [address] [id number][place] [phone] Jul, [facility] [place] [address] [id number][place] [phone] Jul, Type 2 diabetes mellitus with diabetic polyneuropathy E11.42 and Dyspepsia R10.13 [facility] [address] [id number][place] [phone] Jun, [facility] [address] [id number][place] [phone] Jun, [facility] [address] [id number][place] [phone] Jun, Type 2 diabetes mellitus with diabetic polyneuropathy E11.42 and Boils L02.92 [facility] [place] [address] [id number][place] [phone] May, Type 2 diabetes mellitus with diabetic polyneuropathy E11.42 [facility] [place] [address] [id number][place] [phone] May, Type 2 diabetes mellitus with diabetic polyneuropathy E11.42 and Bloating R14.0 [facility] [place] [address] [id number], [place] [phone] Apr, [facility] [address] [id number] [phone] Apr, [facility] [place] [address] [id number], [place] [phone] Apr, Type 2 diabetes mellitus with diabetic polyneuropathy E11.42 [facility] [place] [address] [id number], [place] [id number] Mar, [facility] [place] [address] [id number], [place] [phone] Mar, Type 2 diabetes mellitus with diabetic polyneuropathy E11.42 [facility] [address] [id number][place] [phone] February, Type 2 diabetes mellitus with diabetic polyneuropathy E11.42 [facility] [place] [address] [id number], [place] [phone] February, Type 2 diabetes mellitus with diabetic polyneuropathy E11.42 [facility] [place] [address] [id number] [place] [phone] February, Type 2 diabetes mellitus with diabetic polyneuropathy E11.42 and Hypercholesteremia E78.0 [facility] 120 [facility] [id number] [place] [phone] Jan, Type 2 diabetes mellitus with diabetic polyneuropathy E11.42 [facility] [address] [facility] [id number] [place] [phone] Jan, Type 2 diabetes mellitus with diabetic polyneuropathy E11.42 IMMUNIZATIONS No Known Immunizations SOCIAL HISTORY Never Assessed REASON FOR VISIT lab work Gabriel OSWALD PLAN OF CARE VITAL SIGNS MEDICATIONS Unknown Medications RESULTS No Results PROCEDURES Procedure Date Ordered Result Body Site LIPID PANEL Jun 25, 2018 HEPATIC FUNCTION PANEL Jun 25, 2018 VENIPUNCT, ROUTINE* Jun 25, 2018 INSTRUCTIONS MEDICATIONS ADMINISTERED No Known Medications [...] to the right coronary artery by [facility] 05/31/17 Hospitalization History ER Visit for increased heart rate and elevated blood sugar 08/2015 Hospitalization History Had tooth extracted and became septic, was in hospital for several days. 1999 Hospitalization History [facility] discharge dx PAD,CAD, and SVT. Pt has f/u scheduled with 06/0205/31/2016 Hospitalization History PSVT, Hypotension, CAD-[facility] 03/13/18
--- OUTSIDE RECORDS SUMMARY | 2019-03-03 11:17 | XMS REPORT ---
Author Author ESTRELLITA PANDYA Organization [facility] Address [address] [place] [address] Care Team Providers Care Service Agent Name Role Phone ESTRELLITA PANDYA Unavailable PROBLEMS Type Condition ICD9-CM Code RNR69-KR Code Onset Dates Condition Status SNOMED Code Problem Hypertension, unspecified type I10 Active 08365644 Problem Chronic GERD K21.9 Active 839771222 Problem PAD (peripheral artery disease) I73.9 Active 619427577 Problem 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 46227553 Problem PSVT (paroxysmal supraventricular tachycardia) I47.1 Active 74902957 Problem Chronic obstructive pulmonary disease, unspecified COPD type J44.9 Active 02155294 Problem Hematochezia K92.1 Active [id number] Problem Chronic ischemic heart disease I25.9 Active 457373678 Problem Mixed hyperlipidemia E78.2 Active 529067969 Problem Degenerative disc disease, lumbar M51.36 Active 51156497 ALLERGIES No Information ENCOUNTERS Encounter Location Date Diagnosis [facility] [id number] [address] Jun, [facility] [address] [id number] [id number] Jun, Mixed hyperlipidemia E78.2 [facility] [id number] [place] [address] 34339- 7533 Jun, [facility] [address] [place] [address] 37919- 2037 May, [facility] [id number] [place] [address] 82186- 1194 May, [facility] [id number] [address] 49[address] May, [facility] [id number] [address] May, [facility] [id number] [place] [address] 76371- 4123 May, [facility] [id number] [place] [address] 81560- 4575 May, Type 2 diabetes mellitus with diabetic polyneuropathy E11.42 ; PSVT (paroxysmal supraventricular tachycardia) I47.1 ; PAD (peripheral artery disease) I73.9 ; Chronic obstructive pulmonary disease, unspecified COPD type J44.9 and Skin sore L98.9 [facility] [id number] [place] [address] 39412- 1688 Apr, [facility] [id number] [place] [address] 90983- 4242 Apr, Type 2 diabetes mellitus with diabetic polyneuropathy E11.42 and Chronic GERD K21.9 [facility] [id number] [place] [address] 61421- 6231 Mar, [facility] [address] [address] Mar, [facility] [id number] [place] [address] 28448- 4116 Mar, [facility] [address] [address] Mar, Hypercholesteremia E78.0 ; Chronic obstructive pulmonary disease, unspecified COPD type J44.9 and PSVT (paroxysmal supraventricular tachycardia) I47.1 [facility] [address] [address] Mar, Type 2 diabetes mellitus with diabetic polyneuropathy E11.42 [facility] [id number] [address] February, [facility] [address] [address] February, PSVT (paroxysmal supraventricular tachycardia) I47.1 [address] [facility] [id number] [place] [address] 84627- 3211 February, COPD exacerbation J44.1 [facility] [id number] [place] [address] 92068- 5127 February, COPD exacerbation J44.1 [facility] [id number] [place] [address] 50472- 6932 February, [facility] [address] [address]31- [address] February, [facility] [address] [address]85- 8639 February, Type 2 diabetes mellitus with diabetic polyneuropathy E11.42 and Chronic obstructive pulmonary disease, unspecified COPD type J44.[address] [address]36- [address] February, [facility] [id number] [place] [address] 79083- 7029 Jan, Type 2 diabetes mellitus with diabetic polyneuropathy E11.42 and Chronic GERD K21.9 [facility] [id number] [place] [address] 91968- 3917 Jan, Type 2 diabetes mellitus with diabetic polyneuropathy E11.42 ; Mixed hyperlipidemia E78.2 ; Chronic obstructive pulmonary disease, unspecified COPD type J44.9 ; Hematochezia K92.1 and Degenerative disc disease, lumbar M51.36 [address] [id number] Jan, Chronic ischemic heart disease I25.9 [id number] [place] [address] 34517- 1305 Jan, PAD (peripheral artery disease) I73.9 and Type 2 diabetes mellitus with diabetic polyneuropathy E11.42 [id number] [place] [address] 64497- 5464 Dec, Type 2 diabetes mellitus with diabetic polyneuropathy E11.42 ; Hematochezia K92.1 ; PAD (peripheral artery disease) I73.9 ; Chronic ischemic heart disease I25.9 and Weakness of left lower extremity R29.898 [facility] [address] [address] Dec, Type 2 diabetes mellitus with diabetic polyneuropathy E11.42 [facility] [id number] [place] [address] 19625- 9351 Nov, Type 2 diabetes mellitus with diabetic polyneuropathy E11.42 and PAD (peripheral artery disease) I73.9 [facility] [address] [place] [address] 37677- 6473 Oct, Type 2 diabetes mellitus with diabetic polyneuropathy E11.42 [address] [id number] Oct, Type 2 diabetes mellitus with diabetic polyneuropathy E11.42 [facility] [address] [place] [address] 27425- 7497 Oct, Type 2 diabetes mellitus with diabetic polyneuropathy E11.42 and Chronic GERD K21.9 [facility] [address] [place] [address] 29227- 3907 Oct, Chronic GERD K21.9 [facility] [address] [address] 6191 Sep, [facility] [address] [place] [address] 24500- 0877 Sep, [facility] [address] [address] 8239 Sep, Type 2 diabetes mellitus with diabetic polyneuropathy E11.42 [facility] [address] [address] 2775 Aug, [facility] [address] [address]- 7333 Aug, [facility] [address] [address] 1414 Aug, [facility] [id number] [place] [address] 75310- 3008 Aug, Type 2 diabetes mellitus with diabetic polyneuropathy E11.42 [facility] [id number] [place] [address] 07048- 1392 Jul, Type 2 diabetes mellitus with diabetic polyneuropathy E11.42 ; Chronic GERD K21.9 ; Hypercholesteremia E78.0 and PAD (peripheral artery disease) I73.9 [facility] [id number] [place] [address] 29207- 9219 Jul, Type 2 diabetes mellitus with diabetic polyneuropathy E11.42 [facility] [id number] [place] [address] 08140- 3776 Jul, [address] [id number] [place] [address] [id number] Jul, [facility] [id number] [place] [address] 09134- 4529 Jul, Type 2 diabetes mellitus with diabetic polyneuropathy E11.42 [facility] [facility] [id number] [place] [address] 29671- 3384 Jul, [address] [place] [address] [id number] Jul, Mixed hyperlipidemia E78.2 ; Hypertension, unspecified type I10 ; PAD ( peripheral artery disease) I73.9 and Chronic ischemic heart disease I25.9 [facility] [address] [place] [address] 00030- 3833 Jun, Type 2 diabetes mellitus with diabetic polyneuropathy E11.42 [facility] [id number] [place] [address] 95865- 4454 Jun, Type 2 diabetes mellitus with diabetic polyneuropathy E11.42 [address] [place] [address] [id number] Jun, [facility] [address] [address] 2546 Jun, Type 2 diabetes mellitus with diabetic polyneuropathy E11.42 ; PAD (peripheral artery disease) I73.9 ; Hypercholesteremia E78.0 and Hypertension, unspecified type I10 [facility] [id number] [place] [address] [id number] Jun, Type 2 diabetes mellitus with diabetic polyneuropathy E11.42 [facility] [id number] [place] [address] 74450 2546 May, [facility] [id number] [place] [address] 69618 2546 May, [facility] [id number] [place] [address] [id number] Apr, Abscess L02.91 [facility] [id number] [place] [address] [id number] Apr, [facility] [id number] [place] [address] [id number] Apr, Dental caries K02.9 and Dental examination Z01.20 [facility] [id number] [place] [address] [id number] Apr, Type 2 diabetes mellitus with diabetic polyneuropathy E11.42 [facility] [id number] [place] [address] [id number] Mar, Type 2 diabetes mellitus with diabetic polyneuropathy E11.42 [facility] [id number] [place] [address] [id number] Mar, Abscess L02.91 and Type 2 diabetes mellitus with diabetic polyneuropathy E11.42 [facility] [id number] [place] [address] [id number] February, Abscess L02.91 [facility] [id number] [place] [address] [id number] Jan, [facility] [id number] [place] [address] [id number] Jan, Type 2 diabetes mellitus with diabetic polyneuropathy E11.42 [facility] [id number] [id number] Jan, [facility] [id number] [place] [address] [id number] Jan, Abscess L02.91 [facility] [id number] [place] [address] [id number] Dec, Type 2 diabetes mellitus with diabetic polyneuropathy E11.42 [facility] [id number] [place] [address] [id number] Nov, Type 2 diabetes mellitus with diabetic polyneuropathy E11.42 [facility] [id number] [place] [address] [id number] Oct, Type 2 diabetes mellitus with diabetic polyneuropathy E11.42 [facility] [id number] [place] [address] [id number] Oct, Type 2 diabetes mellitus with diabetic polyneuropathy E11.42 [facility] [id number] [place] [address] [id number] Oct, Type 2 diabetes mellitus with diabetic polyneuropathy E11.42 and Hydrocele , unspecified hydrocele type N43.3 [facility] [id number] [place] [address] [id number] Sep, Enlarged testicle N50.89 [facility] [id number] [place] [address] [id number] Sep, Enlarged testicle N50.89 [facility] [id number] [place] [address] [id number] Sep, Type 2 diabetes mellitus with diabetic polyneuropathy E11.42 [facility] [id number] [place] [address] [id number] Sep, [facility] [id number] [place] [address] [id number] Aug, Dyspepsia R10.13 and Type 2 diabetes mellitus with diabetic polyneuropathy E11.42 [facility] [id number] [place] [address] [id number] Jul, [facility] [id number] [place] [address] [id number] Jul, Type 2 diabetes mellitus with diabetic polyneuropathy E11.42 and Dyspepsia R10.13 [facility] [address] [id number] [id number] Jun, [facility] [id number] [place] [address] [id number] Jun, [facility] [address] [id number] [place] [id number] Jun, Type 2 diabetes mellitus with diabetic polyneuropathy E11.42 and Boils L02.92 [facility] [id number] [place] [address] [id number] May, Type 2 diabetes mellitus with diabetic polyneuropathy E11.42 [facility] [id number] [place] [address] [id number] May, Type 2 diabetes mellitus with diabetic polyneuropathy E11.42 and Bloating R14.0 [facility] [id number] [place] [address] [id number] Apr, [facility] [address] [id number] Apr, [facility] [address] [id number] [place] [id number] Apr, Type 2 diabetes mellitus with diabetic polyneuropathy E11.42 [facility] [address] [id number] [place] [address] [id number] Mar, [facility] [address] [id number] [place] [id number] Mar, Type 2 diabetes mellitus with diabetic polyneuropathy E11.42 [facility] [address] [id number] [place] [id number] February, Type 2 diabetes mellitus with diabetic polyneuropathy E11.42 [facility] [id number] [place] [address] [id number] February, Type 2 diabetes mellitus with diabetic polyneuropathy E11.42 [facility] [id number] [place] [address] [id number] February, Type 2 diabetes mellitus with diabetic polyneuropathy E11.42 and Hypercholesteremia E78.0 [facility] [address] [id number] [place] [phone] Jan, Type 2 diabetes mellitus with diabetic polyneuropathy E11.42 [facility] [address] [facility] [id number] [place] [id number] Jan, Type 2 diabetes mellitus with diabetic [...] History Heart cath, abdominal aortagram, PTCA / stents to the right coronary artery by [facility] 05/31/17 Hospitalization History ER Visit for increased heart rate and elevated blood sugar 08/2015 Hospitalization History Had tooth extracted and became septic, was in hospital for several days. 1999 Hospitalization History [facility] discharge dx PAD,CAD, and SVT. Pt has f/u scheduled with 06/0205/31/2016 Hospitalization History PSVT, Hypotension, CAD-[facility] 03/13/18
--- OUTSIDE RECORDS SUMMARY | 2019-03-03 11:18 | XMS REPORT ---
Author Author ESTRELLITA PANDYA Organization [facility] Address [address] [place] [address] Care Team Providers Care Pivot End Polisher Name Role Phone ESTRELLITA PANDYA Unavailable PROBLEMS Type Condition ICD9-CM Code [id number] Code Onset Dates Condition Status SNOMED Code Problem Hypertension, unspecified type I10 Active 69811096 Problem Chronic GERD K21.9 Active 391686587 Problem PAD (peripheral artery disease) I73.9 Active 962394408 Problem 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 46662643 Problem PSVT (paroxysmal supraventricular tachycardia) I47.1 Active 42893987 Problem Chronic obstructive pulmonary disease, unspecified COPD type J44.9 Active 23081971 Problem Hematochezia K92.1 Active 210404896166669 Problem Chronic ischemic heart disease I25.9 Active 296993814 Problem Mixed hyperlipidemia E78.2 Active 287286203 Problem Degenerative disc disease, lumbar M51.36 Active 72384183 ALLERGIES No Information ENCOUNTERS Encounter Location Date Diagnosis [facility] [id number] [address] Jun, [facility] [address] [id number] [id number] Jun, Mixed hyperlipidemia E78.2 [facility] [id number] [place] [address]994- 3705 Jun, [facility] [id number] [place] [address] 21526- 1192 May, [facility] [id number] [place] [address] 16257- 3533 May, [facility] [id number], [place] [address] May, [facility] [id number] [address] May, [facility] [id number] [place] [address] 66629- 3791 May, [facility] [id number] [place] [address] 45384- 2980 May, Type 2 diabetes mellitus with diabetic polyneuropathy E11.42 ; PSVT (paroxysmal supraventricular tachycardia) I47.1 ; PAD (peripheral artery disease) I73.9 ; Chronic obstructive pulmonary disease, unspecified COPD type J44.9 and Skin sore L98.9 [facility] [id number] [place] [address] 09191- 1002 Apr, [facility] [id number] [place] [address] 52605- 7150 Apr, Type 2 diabetes mellitus with diabetic polyneuropathy E11.42 and Chronic GERD K21.9 [facility] [id number] [place] [address] 94513- 4460 Mar, [facility] [address], [place] [address] Mar, [facility] [id number] [place] [address] 30788- 8030 Mar, [facility] [address], [place] [address] Mar, Hypercholesteremia E78.0 ; Chronic obstructive pulmonary disease, unspecified COPD type J44.9 and PSVT (paroxysmal supraventricular tachycardia) I47.1 [facility] [address], [place] [address] Mar, Type 2 diabetes mellitus with diabetic polyneuropathy E11.42 [facility] [id number] [address] February, [facility] [address], [place] [address] February, PSVT (paroxysmal supraventricular tachycardia) I47.1 [id number] [place] [address] 45096- 7733 February, COPD exacerbation J44.1 [place] [id number] [place] [address] 95863- 1208 February, COPD exacerbation J44.1 [place] [id number] [place] [address] 93234- 2484 February, [place] [address] [address] February, [place] [address] [address]- 2243 February, Type 2 diabetes mellitus with diabetic polyneuropathy E11.42 and Chronic obstructive pulmonary disease, unspecified COPD type J44.[address] [address]- [address] February, [place] [id number] [place] [address] 32964- 0809 Jan, Type 2 diabetes mellitus with diabetic polyneuropathy E11.42 and Chronic GERD K21.9 [place] [id number] [place] [address] 09220- 3529 Jan, Type 2 diabetes mellitus with diabetic polyneuropathy E11.42 ; Mixed hyperlipidemia E78.2 ; Chronic obstructive pulmonary disease, unspecified COPD type J44.9 ; Hematochezia K92.1 and Degenerative disc disease, lumbar M51.36 [address] [id number] Jan, Chronic ischemic heart disease I25.9 [id number] [place] [address] 59685- 6727 Jan, PAD (peripheral artery disease) I73.9 and Type 2 diabetes mellitus with diabetic polyneuropathy E11.42 [id number] [place] [address] 39198- 2214 Dec, Type 2 diabetes mellitus with diabetic polyneuropathy E11.42 ; Hematochezia K92.1 ; PAD (peripheral artery disease) I73.9 ; Chronic ischemic heart disease I25.9 and Weakness of left lower extremity R29.898 [facility] [address], [place] [address] Dec, Type 2 diabetes mellitus with diabetic polyneuropathy E11.42 [facility] [id number] [place] [address] 72520- 2743 Nov, Type 2 diabetes mellitus with diabetic polyneuropathy E11.42 and PAD (peripheral artery disease) I73.9 [facility] [id number] [place] [address] 06194- 8098 Oct, Type 2 diabetes mellitus with diabetic polyneuropathy E11.42 [address] [id number] Oct, Type 2 diabetes mellitus with diabetic polyneuropathy E11.42 [facility] [id number] [place] [address] 45655- 8401 Oct, Type 2 diabetes mellitus with diabetic polyneuropathy E11.42 and Chronic GERD K21.9 [facility] [id number] [place] [address] 52148- 4938 Oct, Chronic GERD K21.9 [facility] [address], [place] [address] Sep, [facility] [id number] [place] [address] 12296- 3456 Sep, [facility] [address], [place] [address] 2076 Sep, Type 2 diabetes mellitus with diabetic polyneuropathy E11.42 [facility] [address], [place] [address] 3[address] Aug, [facility] [address], [place] [address] 7[address] Aug, [facility] [address], [place] [address] 0[address] Aug, [facility] [id number] [place] [address] 98260- 9962 Aug, Type 2 diabetes mellitus with diabetic polyneuropathy E11.42 [facility] [id number] [place] [address] 33064- 4196 Jul, Type 2 diabetes mellitus with diabetic polyneuropathy E11.42 ; Chronic GERD K21.9 ; Hypercholesteremia E78.0 and PAD (peripheral artery disease) I73.9 [facility] [id number] [place] [address] 87662- 3587 Jul, Type 2 diabetes mellitus with diabetic polyneuropathy E11.42 [facility] [id number] [place] [address] 98778- 6928 Jul, [id number] [place] [id number] Jul, [facility] [id number] [place] [address] 91900- 3051 Jul, Type 2 diabetes mellitus with diabetic polyneuropathy E11.42 [place] [id number] [place] [address] 56462- 8454 Jul, [address] [place] [address] [phone] Jul, Mixed hyperlipidemia E78.2 ; Hypertension, unspecified type I10 ; PAD ( peripheral artery disease) I73.9 and Chronic ischemic heart disease I25.9 [facility] [id number] [place] [address] 89952- 9531 Jun, Type 2 diabetes mellitus with diabetic polyneuropathy E11.42 [facility] [id number] [place] [address] 69971- 8217 Jun, Type 2 diabetes mellitus with diabetic polyneuropathy E11.42 [address] [place] [address] [id number] Jun, [facility] [address], [place] [address] 2546 Jun, Type 2 diabetes mellitus with diabetic polyneuropathy E11.42 ; PAD (peripheral artery disease) I73.9 ; Hypercholesteremia E78.0 and Hypertension, unspecified type I10 [facility] [id number] [place] [address] [id number] Jun, Type 2 diabetes mellitus with diabetic polyneuropathy E11.42 [facility] [id number] [place] [address] 42023 2546 May, [facility] [id number] [place] [address] 27937 2546 May, [facility] [id number] [place] [address] [phone] Apr, Abscess L02.91 [facility] [id number] [place] [address] [phone] Apr, [facility] [id number] [place] [address] [phone] Apr, Dental caries K02.9 and Dental examination Z01.20 [facility] [id number] [place] [address] [phone] Apr, Type 2 diabetes mellitus with diabetic polyneuropathy E11.42 [facility] [id number] [place] [address] [id number] Mar, Type 2 diabetes mellitus with diabetic polyneuropathy E11.42 [facility] [id number] [place] [address] [phone] Mar, Abscess L02.91 and Type 2 diabetes mellitus with diabetic polyneuropathy E11.42 [facility] [id number] [place] [address] [id number] February, Abscess L02.91 [facility] [id number] [place] [address] [id number] Jan, [facility] [id number] [place] [address] [id number] Jan, Type 2 diabetes mellitus with diabetic polyneuropathy E11.42 [facility] [id number] [phone] Jan, [facility] [id number] [place] [address] [phone] Jan, Abscess L02.91 [facility] [id number] [place] [address] [id number] Dec, Type 2 diabetes mellitus with diabetic polyneuropathy E11.42 [facility] [id number] [place] [address] [id number] Nov, Type 2 diabetes mellitus with diabetic polyneuropathy E11.42 [facility] [id number] [place] [address] [id number] Oct, Type 2 diabetes mellitus with diabetic polyneuropathy E11.42 [facility] [id number] [place] [address] [id number] Oct, Type 2 diabetes mellitus with diabetic polyneuropathy E11.42 [facility] [id number] [place] [address] [phone] Oct, Type 2 diabetes mellitus with diabetic polyneuropathy E11.42 and Hydrocele , unspecified hydrocele type N43.3 [facility] [id number] [place] [address] [id number] Sep, Enlarged testicle N50.89 [facility] [id number] [place] [address] [id number] Sep, Enlarged testicle N50.89 [facility] [id number] [place] [address] [id number] Sep, Type 2 diabetes mellitus with diabetic polyneuropathy E11.42 [facility] [id number] [place] [address] [id number] Sep, [facility] [id number] [place] [address] [id number] Aug, Dyspepsia R10.13 and Type 2 diabetes mellitus with diabetic polyneuropathy E11.42 [facility] [id number] [place] [address] [id number] Jul, [facility] [id number] [place] [address] [id number] Jul, Type 2 diabetes mellitus with diabetic polyneuropathy E11.42 and Dyspepsia R10.13 [facility] [address] [id number] [phone] Jun, [facility] [id number] [place] [address] [id number] Jun, [facility] [address] [id number] [phone] Jun, Type 2 diabetes mellitus with diabetic polyneuropathy E11.42 and Boils L02.92 [facility] [id number] [place] [address] [id number] May, Type 2 diabetes mellitus with diabetic polyneuropathy E11.42 [facility] [id number] [place] [address] [id number] May, Type 2 diabetes mellitus with diabetic polyneuropathy E11.42 and Bloating R14.0 [facility] [id number] [place] [address] [id number] Apr, [facility] [address] [phone] Apr, [facility] [address] [id number] [phone] Apr, Type 2 diabetes mellitus with diabetic polyneuropathy E11.42 [facility] [id number] [place] [address] [id number] Mar, [facility] [address] [id number] [phone] Mar, Type 2 diabetes mellitus with diabetic polyneuropathy E11.42 [facility] [address] [id number] [id number] February, Type 2 diabetes mellitus with diabetic polyneuropathy E11.42 [facility] [id number] [place] [address] [id number] February, Type 2 diabetes mellitus with diabetic polyneuropathy E11.42 [facility] [address] [id number] [place] [address] [id number] February, Type 2 diabetes mellitus with diabetic polyneuropathy E11.42 and Hypercholesteremia E78.0 [facility] [address] [id number] [place] [id number] Jan, Type 2 diabetes mellitus with diabetic polyneuropathy E11.42 [facility] [address] [facility] [id number] [place] [phone] Jan, Type 2 diabetes mellitus with diabetic polyneuropathy E11.42 IMMUNIZATIONS No Known Immunizations SOCIAL HISTORY Never Assessed REASON FOR VISIT Repository Medication PLAN OF CARE VITAL SIGNS MEDICATIONS Medication Instructions Dosage Frequency Start Date End Date Duration Status Clopidogrel Bisulfate 75 MG Orally Once a day 1 tablet 24h 90 days Active Metoprolol Succinate ER 25 MG Orally Once a day 1 tablet 24h Jun, 90 days Active Diltiazem CD 240 MG Orally Once a day 1 capsule 24h 90 days Active RESULTS No Results [...] stents to the right coronary artery by [facility] 05/31/17 Hospitalization History ER Visit for increased heart rate and elevated blood sugar 08/2015 Hospitalization History Had tooth extracted and became septic, was in hospital for several days. 1999 Hospitalization History [facility] discharge dx PAD,CAD, and SVT. Pt has f/u scheduled with 06/0205/31/2016 Hospitalization History PSVT, Hypotension, CAD-[facility] 03/13/18
--- OUTSIDE RECORDS SUMMARY | 2019-03-03 11:18 | XMS REPORT ---
Author Author ESTRELLITA PANDYA Organization [facility] Address [address] [place] [address] Care Team Providers Care Production Packager Name Role Phone ESTRELLITA PANDYA Unavailable PROBLEMS Type Condition ICD9-CM Code [id number] Code Onset Dates Condition Status SNOMED Code Problem Hypertension, unspecified type I10 Active 46108228 Problem Chronic GERD K21.9 Active 952264179 Problem PAD (peripheral artery disease) I73.9 Active 140180156 Problem 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 09715529 Problem PSVT (paroxysmal supraventricular tachycardia) I47.1 Active 58221516 Problem Chronic obstructive pulmonary disease, unspecified COPD type J44.9 Active 38374049 Problem Hematochezia K92.1 Active [id number] Problem Chronic ischemic heart disease I25.9 Active 045781017 Problem Mixed hyperlipidemia E78.2 Active 836207946 Problem Degenerative disc disease, lumbar M51.36 Active 23369846 ALLERGIES No Information ENCOUNTERS Encounter Location Date Diagnosis [facility] [id number] [address] Jun, [facility] [address] [id number] [id number] Jun, Mixed hyperlipidemia E78.2 [facility] [id number] [place] [address]60- 8[address] Jun, [facility] [id number] [place] [address] 53423- 8846 May, [facility] [id number] [place] [address] 57537- 3554 May, [facility] [id number] [address] May, [facility] [id number] [address] May, [facility] [id number] [place] [address] 16011- 5210 May, [facility] [id number] [place] [address] 92591- 2097 May, Type 2 diabetes mellitus with diabetic polyneuropathy E11.42 ; PSVT (paroxysmal supraventricular tachycardia) I47.1 ; PAD (peripheral artery disease) I73.9 ; Chronic obstructive pulmonary disease, unspecified COPD type J44.9 and Skin sore L98.9 [facility] [id number] [place] [address] 14136- 4604 Apr, [facility] [id number] [place] [address] 19026- 7161 Apr, Type 2 diabetes mellitus with diabetic polyneuropathy E11.42 and Chronic GERD K21.9 [facility] [id number] [place] [address] 48058- 6902 Mar, [facility] [address] [address] Mar, [facility] [id number] [place] [address] 15169- 1580 Mar, [facility] [address] [address] Mar, Hypercholesteremia E78.0 ; Chronic obstructive pulmonary disease, unspecified COPD type J44.9 and PSVT (paroxysmal supraventricular tachycardia) I47.1 [facility] [address] [address] Mar, Type 2 diabetes mellitus with diabetic polyneuropathy E11.42 [facility] [id number] [address] February, [facility] [address] [address] February, PSVT (paroxysmal supraventricular tachycardia) I47.1 [id number] [place] [address] 86258- 7736 February, COPD exacerbation J44.1 [facility] [id number] [place] [address] 74278- 1113 February, COPD exacerbation J44.1 [facility] [id number] [place] [address] 75636- 8281 February, [address] [address]- [address] February, [address] [address]- [address] February, Type 2 diabetes mellitus with diabetic polyneuropathy E11.42 and Chronic obstructive pulmonary disease, unspecified COPD type J44.[address] [address]- [address] February, [facility] [facility] [id number] [place] [address] 76568- 3983 Jan, Type 2 diabetes mellitus with diabetic polyneuropathy E11.42 and Chronic GERD K21.9 [facility] [id number] [place] [address] 70346- 9451 Jan, Type 2 diabetes mellitus with diabetic polyneuropathy E11.42 ; Mixed hyperlipidemia E78.2 ; Chronic obstructive pulmonary disease, unspecified COPD type J44.9 ; Hematochezia K92.1 and Degenerative disc disease, lumbar M51.36 [address] [id number] Jan, Chronic ischemic heart disease I25.9 [id number] [place] [address] 88435- 6028 Jan, PAD (peripheral artery disease) I73.9 and Type 2 diabetes mellitus with diabetic polyneuropathy E11.42 [id number] [place] [address] 21562- 4018 Dec, Type 2 diabetes mellitus with diabetic polyneuropathy E11.42 ; Hematochezia K92.1 ; PAD (peripheral artery disease) I73.9 ; Chronic ischemic heart disease I25.9 and Weakness of left lower extremity R29.898 [facility] [address] [address] Dec, Type 2 diabetes mellitus with diabetic polyneuropathy E11.42 [facility] [id number] [place] [address] 88116- 6985 Nov, Type 2 diabetes mellitus with diabetic polyneuropathy E11.42 and PAD (peripheral artery disease) I73.9 [facility] [address] [place] [address] 30612- 1872 Oct, Type 2 diabetes mellitus with diabetic polyneuropathy E11.42 [address] [id number] Oct, Type 2 diabetes mellitus with diabetic polyneuropathy E11.42 [facility] [address] [place] [address] 04260- 9536 Oct, Type 2 diabetes mellitus with diabetic polyneuropathy E11.42 and Chronic GERD K21.9 [facility] [address] [place] [address] 75886- 9913 Oct, Chronic GERD K21.9 [facility] [address] [address] Sep, [facility] [address] [place] [address] 05627- 6638 Sep, [facility] [address] [address] Sep, Type 2 diabetes mellitus with diabetic polyneuropathy E11.42 [facility] [address] [address] 7[address] Aug, [facility] [address] [address]- [address] Aug, [facility] [address] [address]01 Aug, [facility] [id number] [place] [address] 53654- 4872 Aug, Type 2 diabetes mellitus with diabetic polyneuropathy E11.42 [facility] [id number] [place] [address] 70521- 0212 Jul, Type 2 diabetes mellitus with diabetic polyneuropathy E11.42 ; Chronic GERD K21.9 ; Hypercholesteremia E78.0 and PAD (peripheral artery disease) I73.9 [facility] [id number] [place] [address] 43199- 6999 Jul, Type 2 diabetes mellitus with diabetic polyneuropathy E11.42 [facility] [id number] [place] [address] 58299- 1213 Jul, [id number] [place] [address] [phone] Jul, [facility] [id number] [place] [address] 04333- 3070 Jul, Type 2 diabetes mellitus with diabetic polyneuropathy E11.42 [place] [facility] [id number] [place] [address] 53990- 8882 Jul, [address] [place] [address] [id number] Jul, Mixed hyperlipidemia E78.2 ; Hypertension, unspecified type I10 ; PAD ( peripheral artery disease) I73.9 and Chronic ischemic heart disease I25.9 [facility] [address] [place] [address] 09077- 9380 Jun, Type 2 diabetes mellitus with diabetic polyneuropathy E11.42 [facility] [id number] [place] [address] 44353- 7141 Jun, Type 2 diabetes mellitus with diabetic polyneuropathy E11.42 [address] [place] [address] [phone] Jun, [facility] [address] [address] 2546 Jun, Type 2 diabetes mellitus with diabetic polyneuropathy E11.42 ; PAD (peripheral artery disease) I73.9 ; Hypercholesteremia E78.0 and Hypertension, unspecified type I10 [facility] [id number] [place] [address] [id number] Jun, Type 2 diabetes mellitus with diabetic polyneuropathy E11.42 [facility] [id number] [place] [address] 63942 2546 May, [facility] [id number] [place] [address] 81411 2546 May, [facility] [id number] [place] [address] [phone] Apr, Abscess L02.91 [facility] [id number] [place] [address] [id number] Apr, [facility] [id number] [place] [address] [id number] Apr, Dental caries K02.9 and Dental examination Z01.20 [facility] [id number] [place] [address] [id number] Apr, Type 2 diabetes mellitus with diabetic polyneuropathy E11.42 [facility] [id number] [place] [address] [id number] Mar, Type 2 diabetes mellitus with diabetic polyneuropathy E11.42 [facility] [id number] [place] [address] [id number] Mar, Abscess L02.91 and Type 2 diabetes mellitus with diabetic polyneuropathy E11.42 [facility] [id number] [place] [address] [phone] February, Abscess L02.91 [facility] [id number] [place] [address] [id number] Jan, [facility] [address] [id number] [place] [address] [id number] Jan, Type 2 diabetes mellitus with diabetic polyneuropathy E11.42 [facility] [id number] [id number] Jan, [facility] [id number] [place] [address] [id number] Jan, Abscess L02.91 [facility] [id number] [place] [address] [id number] Dec, Type 2 diabetes mellitus with diabetic polyneuropathy E11.42 [facility] [id number] [place] [address] [id number] Nov, Type 2 diabetes mellitus with diabetic polyneuropathy E11.42 [facility] [id number] [place] [address] [id number] Oct, Type 2 diabetes mellitus with diabetic polyneuropathy E11.42 [facility] [id number] [place] [address] [id number] Oct, Type 2 diabetes mellitus with diabetic polyneuropathy E11.42 [facility] [id number] [place] [address] [id number] Oct, Type 2 diabetes mellitus with diabetic polyneuropathy E11.42 and Hydrocele , unspecified hydrocele type N43.3 [facility] [id number] [place] [address] [id number] Sep, Enlarged testicle N50.89 [facility] [id number] [place] [address] [id number] Sep, Enlarged testicle N50.89 [facility] [id number] [place] [address] [id number] Sep, Type 2 diabetes mellitus with diabetic polyneuropathy E11.42 [facility] [id number] [place] [address] [id number] Sep, [facility] [id number] [place] [address] [id number] Aug, Dyspepsia R10.13 and Type 2 diabetes mellitus with diabetic polyneuropathy E11.42 [facility] [id number] [place] [address] [id number] Jul, [facility] [id number] [place] [address] [id number] Jul, Type 2 diabetes mellitus with diabetic polyneuropathy E11.42 and Dyspepsia R10.13 [facility] [address] [id number] [id number] Jun, [facility] [id number] [place] [address] [id number] Jun, [facility] [address] [id number] [id number] Jun, Type 2 diabetes mellitus with diabetic polyneuropathy E11.42 and Boils L02.92 [facility] [id number] [place] [address] [id number] May, Type 2 diabetes mellitus with diabetic polyneuropathy E11.42 [facility] [id number] [place] [address] [id number] May, Type 2 diabetes mellitus with diabetic polyneuropathy E11.42 and Bloating R14.0 [facility] [id number] [place] [address] [id number] Apr, [facility] [address] [id number] Apr, [facility] [address] [id number] [phone] Apr, Type 2 diabetes mellitus with diabetic polyneuropathy E11.42 [facility] [id number] [place] [address] [id number] Mar, [facility] [address] [id number] [id number] Mar, Type 2 diabetes mellitus with diabetic polyneuropathy E11.42 [facility] [address] [id number] [id number] February, Type 2 diabetes mellitus with diabetic polyneuropathy E11.42 [facility] [id number] [place] [address] [id number] February, Type 2 diabetes mellitus with diabetic polyneuropathy E11.42 [facility] [id number] [place] [address] [phone] February, Type 2 diabetes mellitus with diabetic polyneuropathy E11.42 and Hypercholesteremia E78.0 [facility] [address] [id number] [place] [phone] Jan, Type 2 diabetes mellitus with diabetic polyneuropathy E11.42 [facility] [address] [facility] [id number] [place] [phone] Jan, Type 2 diabetes mellitus with diabetic [...] stents to the right coronary artery by [facility] 05/31/17 Hospitalization History ER Visit for increased heart rate and elevated blood sugar 08/2015 Hospitalization History Had tooth extracted and became septic, was in hospital for several days. 1999 Hospitalization History [facility] discharge dx PAD,CAD, and SVT. Pt has f/u scheduled with 06/0205/31/2016 Hospitalization History PSVT, Hypotension, CAD-[facility] 03/13/18
--- OUTSIDE RECORDS SUMMARY | 2019-03-03 11:18 | XMS REPORT ---
Author Author ESTRELLITA PANDYA Organization [facility] Address [address] [place] [address] Care Team Providers Care Yard Spotter Name Role Phone ESTRELLITA PANDYA Unavailable PROBLEMS Type Condition ICD9-CM Code LDV44-QV Code Onset Dates Condition Status SNOMED Code Problem Hypertension, unspecified type I10 Active 43134346 Problem Chronic GERD K21.9 Active 565903933 Problem PAD (peripheral artery disease) I73.9 Active 596489596 Problem 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 09485539 Problem PSVT (paroxysmal supraventricular tachycardia) I47.1 Active 04946508 Problem Chronic obstructive pulmonary disease, unspecified COPD type J44.9 Active 05982099 Problem Hematochezia K92.1 Active [id number] Problem Chronic ischemic heart disease I25.9 Active 862063112 Problem Mixed hyperlipidemia E78.2 Active 412370007 Problem Degenerative disc disease, lumbar M51.36 Active 17944723 ALLERGIES No Information ENCOUNTERS Encounter Location Date Diagnosis [facility] [id number] [address] Jun, [facility] [address] [id number] [id number] Jun, Mixed hyperlipidemia E78.2 [facility] [id number] [place] [address] 67007- 1016 Jun, [facility] [id number] [place] [address] 71046- 3029 May, [facility] [id number] [place] [address] 10800- 0986 May, [facility] [id number], [place] [address] May, [facility] [id number], [place] [address] 3[address] May, [facility] [id number] [place] [address] 35333- 5348 May, [facility] [id number] [place] [address] 91132- 5060 May, Type 2 diabetes mellitus with diabetic polyneuropathy E11.42 ; PSVT (paroxysmal supraventricular tachycardia) I47.1 ; PAD (peripheral artery disease) I73.9 ; Chronic obstructive pulmonary disease, unspecified COPD type J44.9 and Skin sore L98.9 [facility] [id number] [place] [address] 21993- 6462 Apr, [facility] [id number] [place] [address] 32931- 9445 Apr, Type 2 diabetes mellitus with diabetic polyneuropathy E11.42 and Chronic GERD K21.9 [facility] [id number] [place] [address] 53452- 0126 Mar, [facility] [address], [place] [address] Mar, [facility] [id number] [place] [address] 01204- 9350 Mar, [facility] [address], [place] [address] Mar, Hypercholesteremia E78.0 ; Chronic obstructive pulmonary disease, unspecified COPD type J44.9 and PSVT (paroxysmal supraventricular tachycardia) I47.1 [facility] [address], [place] [address] Mar, Type 2 diabetes mellitus with diabetic polyneuropathy E11.42 [facility] [id number], [place] [address] February, [facility] [address], [place] [address] February, PSVT (paroxysmal supraventricular tachycardia) I47.1 [id number] [place] [address] 43440- 7419 February, COPD exacerbation J44.1 [id number] [place] [address] 15640- 9593 February, COPD exacerbation J44.1 [address] [id number] [place] [address] 27273- 7192 February, [address] [address]- [address]447 February, [address] [address]- [address] February, Type 2 diabetes mellitus with diabetic polyneuropathy E11.42 and Chronic obstructive pulmonary disease, unspecified COPD type J44.[address] [address]- [address] February, [address] [id number] [place] [address] 51828- 2710 Jan, Type 2 diabetes mellitus with diabetic polyneuropathy E11.42 and Chronic GERD K21.9 [address] [place] [id number] [place] [address] 75949- 3017 Jan, Type 2 diabetes mellitus with diabetic polyneuropathy E11.42 ; Mixed hyperlipidemia E78.2 ; Chronic obstructive pulmonary disease, unspecified COPD type J44.9 ; Hematochezia K92.1 and Degenerative disc disease, lumbar M51.36 [address] [id number] Jan, Chronic ischemic heart disease I25.9 [id number] [place] [address] 49747- 5444 Jan, PAD (peripheral artery disease) I73.9 and Type 2 diabetes mellitus with diabetic polyneuropathy E11.42 [id number] [place] [address] 56493- 3953 Dec, Type 2 diabetes mellitus with diabetic polyneuropathy E11.42 ; Hematochezia K92.1 ; PAD (peripheral artery disease) I73.9 ; Chronic ischemic heart disease I25.9 and Weakness of left lower extremity R29.898 [facility] [address], [place] [address] Dec, Type 2 diabetes mellitus with diabetic polyneuropathy E11.42 [facility] [id number] [place] [address] 72164- 5373 Nov, Type 2 diabetes mellitus with diabetic polyneuropathy E11.42 and PAD (peripheral artery disease) I73.9 [facility] [address] [place] [address] 90390- 3104 Oct, Type 2 diabetes mellitus with diabetic polyneuropathy E11.42 [address] [id number] Oct, Type 2 diabetes mellitus with diabetic polyneuropathy E11.42 [facility] [address] [place] [address] 95508- 3287 Oct, Type 2 diabetes mellitus with diabetic polyneuropathy E11.42 and Chronic GERD K21.9 [facility] [address] [place] [address] 58460- 7883 Oct, Chronic GERD K21.9 [facility] [address], [place] [address] 4[address] Sep, [facility] [address] [place] [address] 30104- 1437 Sep, [facility] [address], [place] [address] 4077 Sep, Type 2 diabetes mellitus with diabetic polyneuropathy E11.42 [facility] [address], [place] [address] 10[address] Aug, [facility] [address], [place] [address] 7159 Aug, [facility] [address], [place] [address] 67[address] Aug, [facility] [id number] [place] [address] 03769- 0669 Aug, Type 2 diabetes mellitus with diabetic polyneuropathy E11.42 [facility] [id number] [place] [address] 58006- 7604 Jul, Type 2 diabetes mellitus with diabetic polyneuropathy E11.42 ; Chronic GERD K21.9 ; Hypercholesteremia E78.0 and PAD (peripheral artery disease) I73.9 [facility] [id number] [place] [address] 98581- 4033 Jul, Type 2 diabetes mellitus with diabetic polyneuropathy E11.42 [facility] [id number] [place] [address] 90062- 7137 Jul, [id number] [place] [id number] Jul, [facility] [id number] [place] [address] 91991- 4759 Jul, Type 2 diabetes mellitus with diabetic polyneuropathy E11.42 [address] [id number] [place] [address] 37925- 1521 Jul, [address] [place] [address] [id number] Jul, Mixed hyperlipidemia E78.2 ; Hypertension, unspecified type I10 ; PAD ( peripheral artery disease) I73.9 and Chronic ischemic heart disease I25.9 [facility] [address] [place] [address] 28594- 2292 Jun, Type 2 diabetes mellitus with diabetic polyneuropathy E11.42 [facility] [id number] [place] [address] 71777- 0054 Jun, Type 2 diabetes mellitus with diabetic polyneuropathy E11.42 [address] [place] [address] [id number] Jun, [facility] [address], [place] [address] 2546 Jun, Type 2 diabetes mellitus with diabetic polyneuropathy E11.42 ; PAD (peripheral artery disease) I73.9 ; Hypercholesteremia E78.0 and Hypertension, unspecified type I10 [facility] [id number] [place] [address] [id number] Jun, Type 2 diabetes mellitus with diabetic polyneuropathy E11.42 [facility] [id number] [place] [address] 55089 2546 May, [facility] [id number] [place] [address] 95606 2546 May, [facility] [id number] [place] [address] [id number] Apr, Abscess L02.91 [facility] [id number] [place] [address] [id number] Apr, [facility] [id number] [place] [address] [id number] Apr, Dental caries K02.9 and Dental examination Z01.20 [facility] [id number] [place] [address] [id number] Apr, Type 2 diabetes mellitus with diabetic polyneuropathy E11.42 [facility] [id number] [place] [address] [id number] Mar, Type 2 diabetes mellitus with diabetic polyneuropathy E11.42 [facility] [id number] [place] [address] [id number] Mar, Abscess L02.91 and Type 2 diabetes mellitus with diabetic polyneuropathy E11.42 [facility] [id number] [place] [address] [id number] February, Abscess L02.91 [facility] [id number] [place] [address] [id number] Jan, [facility] [id number] [place] [address] [id number] Jan, Type 2 diabetes mellitus with diabetic polyneuropathy E11.42 [facility] [id number] [phone] Jan, [facility] [id number] [place] [address] [id number] Jan, Abscess L02.91 [facility] [id number] [place] [address] [id number] Dec, Type 2 diabetes mellitus with diabetic polyneuropathy E11.42 [facility] [id number] [place] [address] [id number] Nov, Type 2 diabetes mellitus with diabetic polyneuropathy E11.42 [facility] [id number] [place] [address] [id number] Oct, Type 2 diabetes mellitus with diabetic polyneuropathy E11.42 [facility] [id number] [place] [address] [id number] Oct, Type 2 diabetes mellitus with diabetic polyneuropathy E11.42 [facility] [id number] [place] [address] [id number] Oct, Type 2 diabetes mellitus with diabetic polyneuropathy E11.42 and Hydrocele , unspecified hydrocele type N43.3 [facility] [id number] [place] [address] [id number] Sep, Enlarged testicle N50.89 [facility] [id number] [place] [address] [id number] Sep, Enlarged testicle N50.89 [facility] [id number] [place] [address] [id number] Sep, Type 2 diabetes mellitus with diabetic polyneuropathy E11.42 [facility] [id number] [place] [address] [id number] Sep, [facility] [id number] [place] [address] [id number] Aug, Dyspepsia R10.13 and Type 2 diabetes mellitus with diabetic polyneuropathy E11.42 [facility] [id number] [place] [address] [id number] Jul, [facility] [id number] [place] [address] [id number] Jul, Type 2 diabetes mellitus with diabetic polyneuropathy E11.42 and Dyspepsia R10.13 [facility] [address] [id number] [id number] Jun, [facility] [id number] [place] [address] [id number] Jun, [facility] [address] [id number] [phone] Jun, Type 2 diabetes mellitus with diabetic polyneuropathy E11.42 and Boils L02.92 [facility] [id number] [place] [address] [id number] May, Type 2 diabetes mellitus with diabetic polyneuropathy E11.42 [facility] [id number] [place] [address] [id number] May, Type 2 diabetes mellitus with diabetic polyneuropathy E11.42 and Bloating R14.0 [facility] [id number] [place] [address] [id number] Apr, [facility] [address] [id number] Apr, [facility] [address] [id number] [phone] Apr, Type 2 diabetes mellitus with diabetic polyneuropathy E11.42 [facility] [id number] [place] [address] [id number] Mar, [facility] [address] [id number] [id number] Mar, Type 2 diabetes mellitus with diabetic polyneuropathy E11.42 [facility] [address] [id number] [phone] February, Type 2 diabetes mellitus with diabetic polyneuropathy E11.42 [facility] [id number] [place] [address] [id number] February, Type 2 diabetes mellitus with diabetic polyneuropathy E11.42 [facility] [id number] [place] [address] [id number] February, Type 2 diabetes mellitus with diabetic polyneuropathy E11.42 and Hypercholesteremia E78.0 [facility] [address] [id number] [place] [id number] Jan, Type 2 diabetes mellitus with diabetic polyneuropathy E11.42 [facility] [address] [facility] [id number] [place] [id number] Jan, Type 2 diabetes mellitus with diabetic [...] to the right coronary artery by [facility] 05/31/17 Hospitalization History ER Visit for increased heart rate and elevated blood sugar 08/2015 Hospitalization History Had tooth extracted and became septic, was in hospital for several days. [address] [facility] discharge dx PAD,CAD, and SVT. Pt has f/u scheduled with 06/0205/31/2016 Hospitalization History PSVT, Hypotension, CAD-[facility] 03/13/18
--- OUTSIDE RECORDS SUMMARY | 2019-03-03 11:18 | XMS REPORT ---
Author Author ESTRELLITA PANDYA Organization [facility] Address [address] [place] [address] Care Team Providers Care Engineering And Development Director Name Role Phone ESTRELLITA PANDYA Unavailable PROBLEMS Type Condition ICD9-CM Code VRS34-GQ Code Onset Dates Condition Status SNOMED Code Problem Hypertension, unspecified type I10 Active 54194276 Problem Chronic GERD K21.9 Active 540484957 Problem PAD (peripheral artery disease) I73.9 Active 336732720 Problem 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 21605275 Problem PSVT (paroxysmal supraventricular tachycardia) I47.1 Active 79626011 Problem Chronic obstructive pulmonary disease, unspecified COPD type J44.9 Active 69697134 Problem Hematochezia K92.1 Active [id number] Problem Chronic ischemic heart disease I25.9 Active 830274478 Problem Mixed hyperlipidemia E78.2 Active 171090964 Problem Degenerative disc disease, lumbar M51.36 Active 90517242 ALLERGIES No Information ENCOUNTERS Encounter Location Date Diagnosis [facility] [id number] [address] Jun, [facility] [address] [id number] [id number] Jun, Mixed hyperlipidemia E78.2 [facility] [id number] [place] [address] 81033- 8578 Jun, [facility] [id number] [place] [address] 15495- 3298 May, [facility] [id number] [place] [address] 64592- 6053 May, [facility] [id number] [address] May, [facility] [id number] [address] 98[address] May, [facility] [id number] [place] [address] 93088- 8171 May, [facility] [id number] [place] [address] 77976- 3141 May, Type 2 diabetes mellitus with diabetic polyneuropathy E11.42 ; PSVT (paroxysmal supraventricular tachycardia) I47.1 ; PAD (peripheral artery disease) I73.9 ; Chronic obstructive pulmonary disease, unspecified COPD type J44.9 and Skin sore L98.9 [facility] [id number] [place] [address] 41241- 9458 Apr, [facility] [id number] [place] [address] 01077- 4156 Apr, Type 2 diabetes mellitus with diabetic polyneuropathy E11.42 and Chronic GERD K21.9 [facility] [id number] [place] [address] 27472- 7075 Mar, [facility] [address] [address] Mar, [facility] [id number] [place] [address] 20253- 0929 Mar, [facility] [address] [address] Mar, Hypercholesteremia E78.0 ; Chronic obstructive pulmonary disease, unspecified COPD type J44.9 and PSVT (paroxysmal supraventricular tachycardia) I47.1 [facility] [address] [address]44 Mar, Type 2 diabetes mellitus with diabetic polyneuropathy E11.42 [facility] [id number] [address] February, [facility] [address] [address] February, PSVT (paroxysmal supraventricular tachycardia) I47.1 [id number] [place] [address] 25061- 9754 February, COPD exacerbation J44.1 [id number] [place] [address] 15113- 3670 February, COPD exacerbation J44.1 [id number] [place] [address] 37903- 2952 February, [address] [address] February, [address] [address]- [address] February, Type 2 diabetes mellitus with diabetic polyneuropathy E11.42 and Chronic obstructive pulmonary disease, unspecified COPD type J44.[address] [address]- [address] February, [id number] [place] [address] 18631- 6099 Jan, Type 2 diabetes mellitus with diabetic polyneuropathy E11.42 and Chronic GERD K21.9 [id number] [place] [address] 16157- 7529 Jan, Type 2 diabetes mellitus with diabetic polyneuropathy E11.42 ; Mixed hyperlipidemia E78.2 ; Chronic obstructive pulmonary disease, unspecified COPD type J44.9 ; Hematochezia K92.1 and Degenerative disc disease, lumbar M51.36 [address] [id number] Jan, Chronic ischemic heart disease I25.9 [id number] [place] [address] 30630- 4850 Jan, PAD (peripheral artery disease) I73.9 and Type 2 diabetes mellitus with diabetic polyneuropathy E11.42 [id number] [place] [address] 29235- 4688 Dec, Type 2 diabetes mellitus with diabetic polyneuropathy E11.42 ; Hematochezia K92.1 ; PAD (peripheral artery disease) I73.9 ; Chronic ischemic heart disease I25.9 and Weakness of left lower extremity R29.898 [facility] [address] [address] Dec, Type 2 diabetes mellitus with diabetic polyneuropathy E11.42 [facility] [id number] [place] [address] 38971- 8889 Nov, Type 2 diabetes mellitus with diabetic polyneuropathy E11.42 and PAD (peripheral artery disease) I73.9 [facility] [id number] [place] [address] 25202- 6526 Oct, Type 2 diabetes mellitus with diabetic polyneuropathy E11.42 [address] [id number] Oct, Type 2 diabetes mellitus with diabetic polyneuropathy E11.42 [facility] [id number] [place] [address] 02647- 0502 Oct, Type 2 diabetes mellitus with diabetic polyneuropathy E11.42 and Chronic GERD K21.9 [facility] [id number] [place] [address] 28110- 8250 Oct, Chronic GERD K21.9 [facility] [address] [address] Sep, [facility] [id number] [place] [address] 78977- 6779 Sep, [facility] [address] [address] 8937 Sep, Type 2 diabetes mellitus with diabetic polyneuropathy E11.42 [facility] [address] [address] 74[address] Aug, [facility] [address] [address] 9492 Aug, [facility] [address] [address] 49[address] Aug, [facility] [id number] [place] [address] 44552- 5786 Aug, Type 2 diabetes mellitus with diabetic polyneuropathy E11.42 [facility] [id number] [place] [address] 50458- 2993 Jul, Type 2 diabetes mellitus with diabetic polyneuropathy E11.42 ; Chronic GERD K21.9 ; Hypercholesteremia E78.0 and PAD (peripheral artery disease) I73.9 [facility] [id number] [place] [address] 44161- 5010 Jul, Type 2 diabetes mellitus with diabetic polyneuropathy E11.42 [facility] [id number] [place] [address] 66455- 0497 Jul, [id number] [place] [address] [id number] Jul, [facility] [id number] [place] [address] 36211- 9061 Jul, Type 2 diabetes mellitus with diabetic polyneuropathy E11.42 [address] [id number] [place] [address] 83531- 8822 Jul, [address] [place] [address] [id number] Jul, Mixed hyperlipidemia E78.2 ; Hypertension, unspecified type I10 ; PAD ( peripheral artery disease) I73.9 and Chronic ischemic heart disease I25.9 [facility] [id number] [place] [address] 54183- 5209 Jun, Type 2 diabetes mellitus with diabetic polyneuropathy E11.42 [facility] [id number] [place] [address] 84320- 2618 Jun, Type 2 diabetes mellitus with diabetic polyneuropathy E11.42 [address] [place] [address] [id number] Jun, [facility] [address] [address] 2546 Jun, Type 2 diabetes mellitus with diabetic polyneuropathy E11.42 ; PAD (peripheral artery disease) I73.9 ; Hypercholesteremia E78.0 and Hypertension, unspecified type I10 [facility] [id number] [place] [address] [id number] Jun, Type 2 diabetes mellitus with diabetic polyneuropathy E11.42 [facility] [id number] [place] [address] 18542 2546 May, [facility] [id number] [place] [address] 40638 2546 May, [facility] [id number] [place] [address] [id number] Apr, Abscess L02.91 [facility] [id number] [place] [address] [id number] Apr, [facility] [id number] [place] [address] [id number] Apr, Dental caries K02.9 and Dental examination Z01.20 [facility] [id number] [place] [address] [id number] Apr, Type 2 diabetes mellitus with diabetic polyneuropathy E11.42 [facility] [address] [id number] [place] [address] [id number] Mar, Type 2 diabetes mellitus with diabetic polyneuropathy E11.42 [facility] [address] [id number] [place] [address] [id number] Mar, Abscess L02.91 and Type 2 diabetes mellitus with diabetic polyneuropathy E11.42 [facility] [address] [id number] [place] [address] [id number] February, Abscess L02.91 [facility] [id number] [place] [address] [id number] Jan, [facility] [address] [id number] [place] [address] [id number] Jan, Type 2 diabetes mellitus with diabetic polyneuropathy E11.42 [facility] [id number] [id number] Jan, [facility] [id number] [place] [address] [id number] Jan, Abscess L02.91 [facility] [id number] [place] [address] [id number] Dec, Type 2 diabetes mellitus with diabetic polyneuropathy E11.42 [facility] [id number] [place] [address] [id number] Nov, Type 2 diabetes mellitus with diabetic polyneuropathy E11.42 [facility] [id number] [place] [address] [id number] Oct, Type 2 diabetes mellitus with diabetic polyneuropathy E11.42 [facility] [id number] [place] [address] [id number] Oct, Type 2 diabetes mellitus with diabetic polyneuropathy E11.42 [facility] [id number] [place] [address] [id number] Oct, Type 2 diabetes mellitus with diabetic polyneuropathy E11.42 and Hydrocele , unspecified hydrocele type N43.3 [facility] [id number] [place] [address] [id number] Sep, Enlarged testicle N50.89 [facility] [id number] [place] [address] [id number] Sep, Enlarged testicle N50.89 [facility] [id number] [place] [address] [id number] Sep, Type 2 diabetes mellitus with diabetic polyneuropathy E11.42 [facility] [id number] [place] [address] [id number] Sep, [facility] [id number] [place] [address] [id number] Aug, Dyspepsia R10.13 and Type 2 diabetes mellitus with diabetic polyneuropathy E11.42 [facility] [id number] [place] [address] [id number] Jul, [facility] [id number] [place] [address] [id number] Jul, Type 2 diabetes mellitus with diabetic polyneuropathy E11.42 and Dyspepsia R10.13 [facility] [address] [id number] [id number] Jun, [facility] [id number] [place] [address] [id number] Jun, [facility] [address] [id number] [phone] Jun, Type 2 diabetes mellitus with diabetic polyneuropathy E11.42 and Boils L02.92 [facility] [id number] [place] [address] [id number] May, Type 2 diabetes mellitus with diabetic polyneuropathy E11.42 [facility] [id number] [place] [address] [id number] May, Type 2 diabetes mellitus with diabetic polyneuropathy E11.42 and Bloating R14.0 [facility] [id number] [place] [address] [id number] Apr, [facility] [address] [id number] Apr, [facility] [address] [id number] [phone] Apr, Type 2 diabetes mellitus with diabetic polyneuropathy E11.42 [facility] [id number] [place] [address] [id number] Mar, [facility] [address] [id number] [id number] Mar, Type 2 diabetes mellitus with diabetic polyneuropathy E11.42 [facility] [address] [id number] [id number] February, Type 2 diabetes mellitus with diabetic polyneuropathy E11.42 [facility] [id number] [place] [address] [id number] February, Type 2 diabetes mellitus with diabetic polyneuropathy E11.42 [facility] [id number] [place] [address] [id number] February, Type 2 diabetes mellitus with diabetic polyneuropathy E11.42 and Hypercholesteremia E78.0 [facility] [address] [id number] [place] [id number] Jan, Type 2 diabetes mellitus with diabetic polyneuropathy E11.42 [facility] [address] [facility] [id number] [place] [phone] Jan, Type 2 diabetes mellitus with diabetic polyneuropathy E11.42 IMMUNIZATIONS No Known Immunizations SOCIAL HISTORY Never Assessed REASON FOR VISIT Sample request PLAN OF CARE VITAL SIGNS MEDICATIONS Unknown [...] stents to the right coronary artery by [facility] 05/31/17 Hospitalization History ER Visit for increased heart rate and elevated blood sugar 08/2015 Hospitalization History Had tooth extracted and became septic, was in hospital for several days. 1999 Hospitalization History [facility] discharge dx PAD,CAD, and SVT. Pt has f/u scheduled with 06/0205/31/2016 Hospitalization History PSVT, Hypotension, CAD-[facility] 03/13/18
--- OUTSIDE RECORDS SUMMARY | 2019-03-03 11:19 | XMS REPORT ---
Author Author ESTRELLITA PANDYA Organization [facility] Address [address] [place] [address] Care Team Providers Care Junior Business Analyst Name Role Phone ESTRELLITA PANDYA Unavailable PROBLEMS Type Condition ICD9-CM Code [id number] Code Onset Dates Condition Status SNOMED Code Problem Hypertension, unspecified type I10 Active 16975888 Problem Chronic GERD K21.9 Active 615882465 Problem PAD (peripheral artery disease) I73.9 Active 213028602 Problem 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 40812209 Problem PSVT (paroxysmal supraventricular tachycardia) I47.1 Active 45196262 Problem Chronic obstructive pulmonary disease, unspecified COPD type J44.9 Active 82725410 Problem Hematochezia K92.1 Active [id number] Problem Chronic ischemic heart disease I25.9 Active 188746172 Problem Mixed hyperlipidemia E78.2 Active 724848226 Problem Degenerative disc disease, lumbar M51.36 Active 48306613 ALLERGIES No Information ENCOUNTERS Encounter Location Date Diagnosis [facility] [id number] [place] [address] 56132- 3131 May, [facility] [id number] [place] [address] 23829- 3478 May, [facility] [id number] [place] [address] 58870- 6997 May, [facility] [id number] [place] [address] 93732- 5013 May, [place] [id number] [place] [address] 49372- 8804 May, Type 2 diabetes mellitus with diabetic polyneuropathy E11.42 ; PSVT (paroxysmal supraventricular tachycardia) I47.1 ; PAD (peripheral artery disease) I73.9 ; Chronic obstructive pulmonary disease, unspecified COPD type J44.9 and Skin sore L98.9 [facility] [address] [address] Apr, [facility] [id number] [place] [address] 01291- 2609 Apr, Type 2 diabetes mellitus with diabetic polyneuropathy E11.42 and Chronic GERD K21.9 [facility] [id number] [place] [address] 86089- 8295 Mar, [facility] [id number] [place] [address] 54220- 7890 Mar, [facility] [id number] [place] [address] 34482- 7387 Mar, [facility] [id number] [place] [address] 02913- 3037 Mar, Hypercholesteremia E78.0 ; Chronic obstructive pulmonary disease, unspecified COPD type J44.9 and PSVT (paroxysmal supraventricular tachycardia) I47.1 [facility] [address] [place] [address] 53490- 7513 Mar, Type 2 diabetes mellitus with diabetic polyneuropathy E11.42 [facility] [address] [address] February, [facility] [address] [address] 24[address] February, PSVT (paroxysmal supraventricular tachycardia) I47.1 [facility] [address] [address] February, COPD exacerbation J44.1 [facility] [address] [address] 5182 February, COPD exacerbation J44.1 [facility] [address] [address]189 February, [facility] [address] [place] [address] 7912 February, [place] [id number] [place] [address] 65118- 3171 February, Type 2 diabetes mellitus with diabetic polyneuropathy E11.42 and Chronic obstructive pulmonary disease, unspecified COPD type J44.9 [facility] [id number] [place] [address] 37695- 3820 February, [facility] [id number] [place] [address] 43473- 8600 Jan, Type 2 diabetes mellitus with diabetic polyneuropathy E11.42 and Chronic GERD K21.9 [facility] [id number] [place] [address] 83005- 6993 Jan, Type 2 diabetes mellitus with diabetic polyneuropathy E11.42 ; Mixed hyperlipidemia E78.2 ; Chronic obstructive pulmonary disease, unspecified COPD type J44.9 ; Hematochezia K92.1 and Degenerative disc disease, lumbar M51.36 [facility] [id number] [place] [phone] Jan, Chronic ischemic heart disease I25.9 [place] [id number] [place] [address] 73925- 3090 Jan, PAD (peripheral artery disease) I73.9 and Type 2 diabetes mellitus with diabetic polyneuropathy E11.42 [place] [id number] [place] [address] 76148- 0636 Dec, Type 2 diabetes mellitus with diabetic polyneuropathy E11.42 ; Hematochezia K92.1 ; PAD (peripheral artery disease) I73.9 ; Chronic ischemic heart disease I25.9 and Weakness of left lower extremity R29.898 [place] [id number] [place] [address] 53933- 5833 Dec, Type 2 diabetes mellitus with diabetic polyneuropathy E11.42 [facility] [facility] [id number] [place] [address] 99152- 3340 Nov, Type 2 diabetes mellitus with diabetic polyneuropathy E11.42 and PAD (peripheral artery disease) I73.9 [facility] [address] [address]- 2541 Oct, Type 2 diabetes mellitus with diabetic polyneuropathy E11.42 [facility] [address] [id number] [phone] Oct, Type 2 diabetes mellitus with diabetic polyneuropathy E11.42 [facility] [address], [place] [address]- 4401 Oct, Type 2 diabetes mellitus with diabetic polyneuropathy E11.42 and Chronic GERD K21.9 [facility] [address] [address]- 5999 Oct, Chronic GERD K21.9 [facility] [address], [place] [address] 1329 Sep, [facility] [address], [place] [address] 0015 Sep, [facility] [address], [place] [address]- 5064 Sep, Type 2 diabetes mellitus with diabetic polyneuropathy E11.42 [facility] [address], [place] [address]- 3935 Aug, [facility] [address], [place] [address]- 8376 Aug, [facility] [address], [place] [address]- 6573 Aug, [facility] [address], [place] [address]- 3339 Aug, Type 2 diabetes mellitus with diabetic polyneuropathy E11.42 [facility] [address], [place] [address]- 9671 Jul, Type 2 diabetes mellitus with diabetic polyneuropathy E11.42 ; Chronic GERD K21.9 ; Hypercholesteremia E78.0 and PAD (peripheral artery disease) I73.9 [place] [address] [address]- 2488 Jul, Type 2 diabetes mellitus with diabetic polyneuropathy E11.42 [facility] [id number] [place] [address] 17191- 6228 Jul, [id number] [place] [address] [phone] Jul, [place] [id number] [place] [address] 92232- 4476 Jul, Type 2 diabetes mellitus with diabetic polyneuropathy E11.42 [place] [id number] [place] [address] 36780- 4738 Jul, [address] [place] [address] [id number] Jul, Mixed hyperlipidemia E78.2 ; Hypertension, unspecified type I10 ; PAD ( peripheral artery disease) I73.9 and Chronic ischemic heart disease I25.9 [place] [id number] [place] [address] 03498- 0108 29 Jun, 2017 Type 2 diabetes mellitus with diabetic polyneuropathy E11.42 [place] [id number] [place] [address] 54351- 3705 Jun, Type 2 diabetes mellitus with diabetic polyneuropathy E11.42 [address] [place] [address] [phone] Jun, [place] [id number] [place] [address] 37560- 6110 Jun, Type 2 diabetes mellitus with diabetic polyneuropathy E11.42 ; PAD (peripheral artery disease) I73.9 ; Hypercholesteremia E78.0 and Hypertension, unspecified type I10 [address] [place] [address] [id number] 05 Jun, 2017 Type 2 diabetes mellitus with diabetic polyneuropathy E11.42 [place] [id number] [place] [address] 70018- 7115 May, [facility] [address] [facility] [id number] [address]- 2546 May, [facility] [address] [id number] [place] [phone] Apr, Abscess L02.91 [facility] [address] [id number] [place] [phone] Apr, [facility] [address] [id number] [id number] Apr, Dental caries K02.9 and Dental examination Z01.[address] [facility] [address] [id number] [place] [id number] Apr, Type 2 diabetes mellitus with diabetic polyneuropathy E11.[address] [facility] [address] [id number] [place] [phone] Mar, Type 2 diabetes mellitus with diabetic polyneuropathy E11.[address] [facility] [address] [id number] [place] [id number] Mar, Abscess L02.91 and Type 2 diabetes mellitus with diabetic polyneuropathy E11.[address] [facility] [address] [id number] [place] [phone] February, Abscess L02.[address] [facility] [address] [id number] [place] [phone] Jan, [facility] [address] [id number] [place] [phone] Jan, Type 2 diabetes mellitus with diabetic polyneuropathy E11.[address] [facility] [address] [id number] [place] [phone] Jan, [facility] [address] [id number] [place] [id number] Jan, Abscess L02.[address] [address] [id number] [place] [id number] Dec, Type 2 diabetes mellitus with diabetic polyneuropathy E11.[address] [id number] [place] [id number] Nov, Type 2 diabetes mellitus with diabetic polyneuropathy E11.[address] [address] [id number] [phone] Oct, Type 2 diabetes mellitus with diabetic polyneuropathy E11.42 [facility] [address] [id number] [place] [id number] Oct, Type 2 diabetes mellitus with diabetic polyneuropathy E11.42 [facility] [address] [id number] [place] [id number] Oct, Type 2 diabetes mellitus with diabetic polyneuropathy E11.42 and Hydrocele , unspecified hydrocele type N43.3 [facility] [id number] [place] [address] [id number] Sep, Enlarged testicle N50.89 [facility] [id number] [place] [address] [id number] Sep, Enlarged testicle N50.89 [facility] [id number] [place] [address] [id number] Sep, Type 2 diabetes mellitus with diabetic polyneuropathy E11.42 [facility] [id number] [place] [address] [id number] Sep, [facility] [id number] [place] [address] [id number] Aug, Dyspepsia R10.13 and Type 2 diabetes mellitus with diabetic polyneuropathy E11.42 [facility] [id number] [place] [address] [id number] Jul, [facility] [address] [id number] [place] [address] [id number] Jul, Type 2 diabetes mellitus with diabetic polyneuropathy E11.42 and Dyspepsia R10.13 [facility] [id number] [place] [address] [id number] Jun, [facility] [id number] [place] [address] [id number] Jun, [facility] [id number] [place] [address] [id number] Jun, Type 2 diabetes mellitus with diabetic polyneuropathy E11.42 and Boils L02.92 [facility] [id number] [place] [address] [id number] May, Type 2 diabetes mellitus with diabetic polyneuropathy E11.42 [facility] [address] [id number] [phone] May, Type 2 diabetes mellitus with diabetic polyneuropathy E11.42 and Bloating R14.0 [facility] [address] [id number] [phone] Apr, [facility] [address] [id number] [phone] Apr, [facility] [id number] [place] [address] [id number] Apr, Type 2 diabetes mellitus with diabetic polyneuropathy E11.42 [facility] [id number] [place] [address] [id number] Mar, [facility] [address] [id number] [place] [address] [id number] Mar, Type 2 diabetes mellitus with diabetic polyneuropathy E11.42 [facility] [id number] [place] [address] [id number] February, Type 2 diabetes mellitus with diabetic polyneuropathy E11.42 [facility] [address] [id number] [place] [address] [id number] February, Type 2 diabetes mellitus with diabetic polyneuropathy E11.42 [facility] [address] [id number] [place] [address] [id number] February, Type 2 diabetes mellitus with diabetic polyneuropathy E11.42 and Hypercholesteremia E78.0 [facility] [address] [id number] [place] [address] [id number] Jan, Type 2 diabetes mellitus with diabetic polyneuropathy E11.42 [facility] [address] [id number] [place] [address] [id number] Jan, Type 2 diabetes mellitus with diabetic polyneuropathy E11.42 IMMUNIZATIONS No Known Immunizations SOCIAL HISTORY Never Assessed REASON FOR VISIT Repository Medication PLAN OF CARE VITAL SIGNS MEDICATIONS Medication Instructions Dosage Frequency Start Date End Date Duration Status Diltiazem CD 240 MG Orally Once a [...] stents to the right coronary artery by [facility] 05/31/17 Hospitalization History ER Visit for increased heart rate and elevated blood sugar 08/2015 Hospitalization History Had tooth extracted and became septic, was in hospital for several days. 1999 Hospitalization History [facility] discharge dx PAD,CAD, and SVT. Pt has f/u scheduled with 06/0205/31/2016 Hospitalization History PSVT, Hypotension, CAD-[facility] 03/13/18
--- OUTSIDE RECORDS SUMMARY | 2019-03-03 11:19 | XMS REPORT ---
Author Author ESTRELLITA PANDYA Organization [facility], [place] Address [address] [place] [address] Care Team Providers Care Carding Doubler Name Role Phone ESTRELLITA PANDYA Unavailable PROBLEMS Type Condition ICD9-CM Code AFC24-VG Code Onset Dates Condition Status SNOMED Code Problem Hypertension, unspecified type I10 Active 69059364 Problem Chronic GERD K21.9 Active 594661589 Problem PAD (peripheral artery disease) I73.9 Active 514442055 Problem 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 72818147 Problem PSVT (paroxysmal supraventricular tachycardia) I47.1 Active 29721839 Problem Chronic obstructive pulmonary disease, unspecified COPD type J44.9 Active 60905664 Problem Hematochezia K92.1 Active [id number] Problem Chronic ischemic heart disease I25.9 Active 899576079 Problem Mixed hyperlipidemia E78.2 Active 047860865 Problem Degenerative disc disease, lumbar M51.36 Active 16462269 ALLERGIES No Information ENCOUNTERS Encounter Location Date Diagnosis [place] [id number] [place] [address] 40086- 4546 May, [place] [id number] [place] [address] 22784- 9081 May, Type 2 diabetes mellitus with diabetic polyneuropathy E11.42 ; PSVT (paroxysmal supraventricular tachycardia) I47.1 ; PAD (peripheral artery disease) I73.9 ; Chronic obstructive pulmonary disease, unspecified COPD type J44.9 and Skin sore L98.9 [place] [id number] [place] [address] 25360- 9516 Apr, [place] [id number] [place] [address] 32870- 8744 Apr, Type 2 diabetes mellitus with diabetic polyneuropathy E11.42 and Chronic GERD K21.9 [facility] [place] [id number] [place] [address] 22024- 1931 Mar, [facility] [place] [id number] [place] [address] 56819- 3933 Mar, [facility] [place] [id number] [place] [address] 39280- 5705 Mar, [facility] [place] [id number] [place] [address] 73643- 6335 Mar, Hypercholesteremia E78.0 ; Chronic obstructive pulmonary disease, unspecified COPD type J44.9 and PSVT (paroxysmal supraventricular tachycardia) I47.1 [place] [id number] [place] [address] 50133- 1624 Mar, Type 2 diabetes mellitus with diabetic polyneuropathy E11.42 [place] [id number] [place] [address] 44080- 2533 February, [facility] [place] [id number] [place] [address] 68935- 2943 February, PSVT (paroxysmal supraventricular tachycardia) I47.1 [facility] [place] [id number] [place] [address] 94520- 1496 February, COPD exacerbation J44.1 [facility] [place] [id number] [place] [address] 03278- 3603 February, COPD exacerbation J44.1 [facility] [place] [id number] [place] [address] 64375- 9825 February, [facility] [place] [id number] [place] [address] 46074- 0552 February, [facility] [place] [id number] [place] [address] 45019- 9140 February, Type 2 diabetes mellitus with diabetic polyneuropathy E11.42 and Chronic obstructive pulmonary disease, unspecified COPD type J44.9 [facility] [place] [id number] [place] [address] 88464- 4770 February, [place] [id number] [place] [address] 00014- 7786 Jan, Type 2 diabetes mellitus with diabetic polyneuropathy E11.42 and Chronic GERD K21.9 [place] [id number] [place] [address] 59340- 5414 Jan, Type 2 diabetes mellitus with diabetic polyneuropathy E11.42 ; Mixed hyperlipidemia E78.2 ; Chronic obstructive pulmonary disease, unspecified COPD type J44.9 ; Hematochezia K92.1 and Degenerative disc disease, lumbar M51.36 [address] [place] [address] [id number] Jan, Chronic ischemic heart disease I25.9 [place] [id number] [place] [address] 10562- 4302 Jan, PAD (peripheral artery disease) I73.9 and Type 2 diabetes mellitus with diabetic polyneuropathy E11.42 [place] [id number] [place] [address] 18902- 8546 Dec, Type 2 diabetes mellitus with diabetic polyneuropathy E11.42 ; Hematochezia K92.1 ; PAD (peripheral artery disease) I73.9 ; Chronic ischemic heart disease I25.9 and Weakness of left lower extremity R29.898 [place] [id number] [address] 9814 Dec, Type 2 diabetes mellitus with diabetic polyneuropathy E11.42 [place] [id number] [place] [address] 23964- 0940 Nov, Type 2 diabetes mellitus with diabetic polyneuropathy E11.42 and PAD (peripheral artery disease) I73.9 [place] [id number] [place] [address] 50704- 7922 Oct, Type 2 diabetes mellitus with diabetic polyneuropathy E11.42 [address] [id number] Oct, Type 2 diabetes mellitus with diabetic polyneuropathy E11.42 [facility], [place] [address] [address]- 4060 Oct, Type 2 diabetes mellitus with diabetic polyneuropathy E11.42 and Chronic GERD K21.9 [facility], [place] [address] [address]- 7050 Oct, Chronic GERD K21.9 [facility] [place] [id number] [place] [address] 78237- 0234 Sep, [facility] [place] [id number] [place] [address] 29795- 6343 Sep, [facility] [place] [id number] [place] [address] 84092- 3922 Sep, Type 2 diabetes mellitus with diabetic polyneuropathy E11.42 [facility] [place] [id number] [place] [address] 64740- 5755 Aug, [facility] [place] [id number] [place] [address] 78518- 8591 Aug, [facility] [place] [id number] [place] [address] 11732- 3615 Aug, [facility] [place] [id number] [place] [address] 34457- 3265 Aug, Type 2 diabetes mellitus with diabetic polyneuropathy E11.42 [facility] [place] [id number] [place] [address] 29341- 6511 Jul, Type 2 diabetes mellitus with diabetic polyneuropathy E11.42 ; Chronic GERD K21.9 ; Hypercholesteremia E78.0 and PAD (peripheral artery disease) I73.9 [facility] [place] [id number] [place] [address] 43909- 0681 Jul, Type 2 diabetes mellitus with diabetic polyneuropathy E11.42 [facility] [place] [address], [place] [address]- 1426 Jul, [place] [address] [id number] Jul, [facility] [place] [id number] [place] [address] 36852- 1757 Jul, Type 2 diabetes mellitus with diabetic polyneuropathy E11.42 [facility] [place] [address] [address] 8866 Jul, [facility] [id number] [place] [address] [id number] Jul, Mixed hyperlipidemia E78.2 ; Hypertension, unspecified type I10 ; PAD ( peripheral artery disease) I73.9 and Chronic ischemic heart disease I25.9 [facility] [place] [id number] [place] [address] 13496- 6209 Jun, Type 2 diabetes mellitus with diabetic polyneuropathy E11.42 [facility] [place] [id number] [place] [address] 53280- 8427 Jun, Type 2 diabetes mellitus with diabetic polyneuropathy E11.42 [facility] [id number] [place] [id number] Jun, [facility] [place] [id number] [place] [address] 77492- 9356 Jun, Type 2 diabetes mellitus with diabetic polyneuropathy E11.42 ; PAD (peripheral artery disease) I73.9 ; Hypercholesteremia E78.0 and Hypertension, unspecified type I10 [facility] [id number] [place] [address] [id number] Jun, Type 2 diabetes mellitus with diabetic polyneuropathy E11.42 [facility] [place] [id number] [place] [address] 20154- 7523 May, [facility] [place] [id number] [place] [address] 83304- 2739 May, [facility] [id number] [place] [id number] Apr, Abscess L02.91 [facility] [id number] [place] [address] [id number] Apr, [facility] [address] [id number] [place] [id number] Apr, Dental caries K02.9 and Dental examination Z01.[address] [facility] [address] [id number] [place] [id number] Apr, Type 2 diabetes mellitus with diabetic polyneuropathy E11.[address] [facility] [address] [id number] [place] [id number] Mar, Type 2 diabetes mellitus with diabetic polyneuropathy E11.[address] [id number] [place] [id number] Mar, Abscess L02.91 and Type 2 diabetes mellitus with diabetic polyneuropathy E11.[address] [id number] [place] [id number] February, Abscess L02.[address] [id number] [place] [id number] Jan, [facility] [id number] [place] [address] [id number] Jan, Type 2 diabetes mellitus with diabetic polyneuropathy E11.[address] [id number] [place] [id number] Jan, [facility] [id number] [place] [address] [id number] Jan, Abscess L02.[address] [id number] [place] [id number] Dec, Type 2 diabetes mellitus with diabetic polyneuropathy E11.[address] [id number] [place] [phone] Nov, Type 2 diabetes mellitus with diabetic polyneuropathy E11.[address] [id number] [place] [id number] Oct, Type 2 diabetes mellitus with diabetic polyneuropathy E11.[address] [id number] [place] [id number] Oct, Type 2 diabetes mellitus with diabetic polyneuropathy E11.[id number] [place] [address] [id number] Oct, Type 2 diabetes mellitus with diabetic polyneuropathy E11.42 and Hydrocele , unspecified hydrocele type N43.3 [facility] [id number] [place] [address] [id number] Sep, Enlarged testicle N50.89 [facility] [id number] [place] [address] [id number] Sep, Enlarged testicle N50.89 [facility] [id number] [place] [address] [id number] Sep, Type 2 diabetes mellitus with diabetic polyneuropathy E11.42 [facility] [id number] [place] [address] [id number] Sep, [facility] [id number] [place] [address] [id number] Aug, Dyspepsia R10.13 and Type 2 diabetes mellitus with diabetic polyneuropathy E11.42 [facility] [id number] [place] [address] [id number] Jul, [facility] [id number] [place] [address] [id number] Jul, Type 2 diabetes mellitus with diabetic polyneuropathy E11.42 and Dyspepsia R10.13 [facility] [id number] [place] [address] [id number] Jun, [facility] [id number] [place] [address] [id number] Jun, [facility] [id number] [place] [address] [id number] Jun, Type 2 diabetes mellitus with diabetic polyneuropathy E11.42 and Boils L02.92 [facility] [id number] [place] [address] [id number] May, Type 2 diabetes mellitus with diabetic polyneuropathy E11.42 [facility] [id number] [place] [address] [id number] May, Type 2 diabetes mellitus with diabetic polyneuropathy E11.42 and Bloating R14.0 [facility] [id number] [place] [address] [id number] Apr, [facility] [address] [id number] [place] [id number] Apr, [facility] [address] [id number] Apr, Type 2 diabetes mellitus with diabetic polyneuropathy E11.42 [facility] [id number] [place] [id number] Mar, [facility] [id number] [place] [address] [id number] Mar, Type 2 diabetes mellitus with diabetic polyneuropathy E11.42 [facility] [address] [place] [address] [id number] February, Type 2 diabetes mellitus with diabetic polyneuropathy E11.42 [facility] [address] [place] [address] [id number] February, Type 2 diabetes mellitus with diabetic polyneuropathy E11.[address] [place] [address] [id number] February, Type 2 diabetes mellitus with diabetic polyneuropathy E11.42 and Hypercholesteremia E78.0 [facility] [address] [place] [address] [id number] Jan, Type 2 diabetes mellitus with diabetic polyneuropathy E11.42 [facility] [address] [id number] Jan, Type 2 diabetes mellitus with diabetic polyneuropathy E11.42 IMMUNIZATIONS No Known Immunizations SOCIAL HISTORY Never Assessed REASON FOR VISIT Lit martínez PLAN OF CARE VITAL SIGNS MEDICATIONS Unknown [...] septic, was in hospital for several days. 2000 Hospitalization History [facility] discharge dx PAD,CAD, and SVT. Pt has f/u scheduled with 06/0205/31/2016 Hospitalization History PSVT, Hypotension, CAD-[facility] 03/13/18
--- OUTSIDE RECORDS SUMMARY | 2019-03-03 11:19 | XMS REPORT ---
Author Author ESTRELLITA PANDYA Organization [facility] Address [address] [place] [address] Care Team Providers Care Housekeeping And Laundry Team Leader Name Role Phone ESTRELLITA PANDYA Unavailable PROBLEMS Type Condition ICD9-CM Code GIP83-KA Code Onset Dates Condition Status SNOMED Code Problem Hypertension, unspecified type I10 Active 66983114 Problem Chronic GERD K21.9 Active 116353667 Problem PAD (peripheral artery disease) I73.9 Active 179628927 Problem 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 79587911 Problem PSVT (paroxysmal supraventricular tachycardia) I47.1 Active 32396822 Problem Chronic obstructive pulmonary disease, unspecified COPD type J44.9 Active 62478503 Problem Hematochezia K92.1 Active [id number] Problem Chronic ischemic heart disease I25.9 Active 343303720 Problem Mixed hyperlipidemia E78.2 Active 990764496 Problem Degenerative disc disease, lumbar M51.36 Active 04901107 ALLERGIES No Information ENCOUNTERS Encounter Location Date Diagnosis [facility] [id number] [place] [address] 42061- 5590 May, [facility] [id number] [place] [address] 50419- 7914 May, [facility] [id number] [place] [address] 77605- 1127 May, [facility] [id number] [place] [address] 69341- 9519 May, [facility] [id number] [place] [address] 04859- 1793 May, [facility] [id number] [place] [address] 17272- 3399 May, Type 2 diabetes mellitus with diabetic polyneuropathy E11.42 ; PSVT (paroxysmal supraventricular tachycardia) I47.1 ; PAD (peripheral artery disease) I73.9 ; Chronic obstructive pulmonary disease, unspecified COPD type J44.9 and Skin sore L98.9 [facility] [address] [address] Apr, [facility] [id number] [place] [address] 43410- 1398 Apr, Type 2 diabetes mellitus with diabetic polyneuropathy E11.42 and Chronic GERD K21.9 [facility] [id number] [place] [address] 13931- 5344 Mar, [facility] [id number] [place] [address] 78868- 9352 Mar, [facility] [id number] [place] [address] 91336- 9698 Mar, [facility] [id number] [place] [address] 50248- 9215 Mar, Hypercholesteremia E78.0 ; Chronic obstructive pulmonary disease, unspecified COPD type J44.9 and PSVT (paroxysmal supraventricular tachycardia) I47.1 [facility] [address] [place] [address] 08118- 6069 Mar, Type 2 diabetes mellitus with diabetic polyneuropathy E11.42 [facility] [address] [address] February, [facility] [id number] [place] [address] 31641- 6118 February, PSVT (paroxysmal supraventricular tachycardia) I47.1 [facility] [id number] [place] [address] 54780- 9118 February, COPD exacerbation J44.1 [facility] [address] [address] 1124 February, COPD exacerbation J44.1 [facility] [address] [address] 29[address] February, [place] [address] [address] [place] [address] 81898- 2997 February, [place] [address] [place] [address] 28636- 3136 February, Type 2 diabetes mellitus with diabetic polyneuropathy E11.42 and Chronic obstructive pulmonary disease, unspecified COPD type J44.9 [place] [address] [place] [address] 12915- 5990 February, [place] [address] [place] [address] 61599- 2716 Jan, Type 2 diabetes mellitus with diabetic polyneuropathy E11.42 and Chronic GERD K21.9 [place] [address] [place] [address] 21633- 7224 Jan, Type 2 diabetes mellitus with diabetic polyneuropathy E11.42 ; Mixed hyperlipidemia E78.2 ; Chronic obstructive pulmonary disease, unspecified COPD type J44.9 ; Hematochezia K92.1 and Degenerative disc disease, lumbar M51.36 [facility] [id number] [id number] Jan, Chronic ischemic heart disease I25.9 [place] [address] [address] 4879 Jan, PAD (peripheral artery disease) I73.9 and Type 2 diabetes mellitus with diabetic polyneuropathy E11.42 [place] [address] [address] 3520 Dec, Type 2 diabetes mellitus with diabetic polyneuropathy E11.42 ; Hematochezia K92.1 ; PAD (peripheral artery disease) I73.9 ; Chronic ischemic heart disease I25.9 and Weakness of left lower extremity R29.898 [place] [address] [address] 2695 Dec, Type 2 diabetes mellitus with diabetic polyneuropathy E11.42 [place] [address] [address]- 2377 Nov, Type 2 diabetes mellitus with diabetic polyneuropathy E11.42 and PAD (peripheral artery disease) I73.9 [facility] [address] [address]- 4137 Oct, Type 2 diabetes mellitus with diabetic polyneuropathy E11.42 [place] [address] [id number] [id number] Oct, Type 2 diabetes mellitus with diabetic polyneuropathy E11.42 [facility] [address] [place] [address] 52408- 6735 Oct, Type 2 diabetes mellitus with diabetic polyneuropathy E11.42 and Chronic GERD K21.9 [facility] [address] [address]- 7476 Oct, Chronic GERD K21.9 [facility] [address] [place] [address] 81388- 6163 Sep, [facility] [address] [address]- 5163 Sep, [facility] [address] [place] [address] 89745- 1905 Sep, Type 2 diabetes mellitus with diabetic polyneuropathy E11.42 [facility] [address] [address] 8034 Aug, [facility] [address] [address]- 8829 Aug, [facility] [address] [address]- 4061 Aug, [facility] [address] [address]- 7007 Aug, Type 2 diabetes mellitus with diabetic polyneuropathy E11.42 [facility] [address] [address]- 4968 Jul, Type 2 diabetes mellitus with diabetic polyneuropathy E11.42 ; Chronic GERD K21.9 ; Hypercholesteremia E78.0 and PAD (peripheral artery disease) I73.9 [facility] [id number] [place] [address] 61006- 6520 Jul, Type 2 diabetes mellitus with diabetic polyneuropathy E11.42 [place] [id number] [place] [address] 77729- 1370 Jul, [facility] [id number] [place] [address] [phone] Jul, [place] [address] [address]115- 7089 Jul, Type 2 diabetes mellitus with diabetic polyneuropathy E11.42 [place] [id number] [place] [address] 75492- 7944 Jul, [address] [id number] [place] [address] [id number] Jul, Mixed hyperlipidemia E78.2 ; Hypertension, unspecified type I10 ; PAD ( peripheral artery disease) I73.9 and Chronic ischemic heart disease I25.9 [place] [id number] [place] [address] 50404- 3493 Jun, Type 2 diabetes mellitus with diabetic polyneuropathy E11.42 [place] [id number] [place] [address] 37040- 9887 Jun, Type 2 diabetes mellitus with diabetic polyneuropathy E11.42 [id number] [place] [address] [phone] Jun, [facility] [id number] [place] [address] 73011- 6546 Jun, Type 2 diabetes mellitus with diabetic polyneuropathy E11.42 ; PAD (peripheral artery disease) I73.9 ; Hypercholesteremia E78.0 and Hypertension, unspecified type I10 [id number] [place] [address] [phone] Jun, Type 2 diabetes mellitus with diabetic polyneuropathy E11.42 [facility] [address] [facility] [id number] [address]30 May, [facility] [address] [facility] [id number] [address]- 8259 May, [facility] [id number] [place] [id number] Apr, Abscess L02.91 [facility] [place] [id number] [place] [address] [phone] Apr, [facility] [address] [id number] Apr, Dental caries K02.9 and Dental examination Z01.20 [facility] [id number] [place] [address] [phone] Apr, Type 2 diabetes mellitus with diabetic polyneuropathy E11.42 [facility] [id number] [place] [address] [id number] Mar, Type 2 diabetes mellitus with diabetic polyneuropathy E11.42 [facility] [id number] [place] [address] [id number] Mar, Abscess L02.91 and Type 2 diabetes mellitus with diabetic polyneuropathy E11.[address] [facility] [id number] [place] [address] [phone] February, Abscess L02.91 [facility] [id number] [place] [address] [phone] Jan, [facility] [id number] [place] [address] [phone] Jan, Type 2 diabetes mellitus with diabetic polyneuropathy E11.[address] [facility] [address] [id number] [place] [phone] Jan, [facility] [id number] [place] [address] [id number] Jan, Abscess L02.91 [facility] [place] [address] [id number] [place] [id number] Dec, Type 2 diabetes mellitus with diabetic polyneuropathy E11.[address] [facility] [id number] [place] [phone] Nov, Type 2 diabetes mellitus with diabetic polyneuropathy E11.42 [facility] [id number] [place] [address] [phone] Oct, Type 2 diabetes mellitus with diabetic polyneuropathy E11.42 [facility] [id number] [place] [address] [phone] Oct, Type 2 diabetes mellitus with diabetic polyneuropathy E11.42 [facility] [id number] [place] [address] [id number] Oct, Type 2 diabetes mellitus with diabetic polyneuropathy E11.42 and Hydrocele , unspecified hydrocele type N43.3 [facility] [id number] [place] [address] [id number] Sep, Enlarged testicle N50.89 [facility] [id number] [place] [address] [id number] Sep, Enlarged testicle N50.89 [facility] [id number] [place] [address] [id number] Sep, Type 2 diabetes mellitus with diabetic polyneuropathy E11.42 [facility] [id number] [place] [address] [phone] Sep, [facility] [id number] [place] [address] [id number] Aug, Dyspepsia R10.13 and Type 2 diabetes mellitus with diabetic polyneuropathy E11.42 [facility] [id number] [place] [address] [id number] Jul, [facility] [id number] [place] [address] [id number] Jul, Type 2 diabetes mellitus with diabetic polyneuropathy E11.42 and Dyspepsia R10.13 [facility] [id number] [place] [address] [id number] Jun, [facility] [id number] [place] [address] [id number] Jun, [facility] [id number] [place] [address] [id number] Jun, Type 2 diabetes mellitus with diabetic polyneuropathy E11.42 and Boils L02.92 [facility] [id number] [place] [address] [id number] May, Type 2 diabetes mellitus with diabetic polyneuropathy E11.42 [facility] [id number] [place] [address] [id number] May, Type 2 diabetes mellitus with diabetic polyneuropathy E11.42 and Bloating R14.0 [facility] [id number] [place] [address] [id number] Apr, [id number] [facility] [id number] [phone] Apr, [facility] [id number] [place] [address] [id number] Apr, Type 2 diabetes mellitus with diabetic polyneuropathy E11.42 [facility] [id number] [place] [address] [id number] Mar, [facility] [id number] [place] [address] [id number] Mar, Type 2 diabetes mellitus with diabetic polyneuropathy E11.42 [facility] [id number] [place] [address] [id number] February, Type 2 diabetes mellitus with diabetic polyneuropathy E11.42 [facility] [id number] [place] [address] [id number] February, Type 2 diabetes mellitus with diabetic polyneuropathy E11.42 [facility] [id number] [place] [address] [id number] February, Type 2 diabetes mellitus with diabetic polyneuropathy E11.42 and Hypercholesteremia E78.0 [facility] [id number] [place] [address] [id number] Jan, Type 2 diabetes mellitus with diabetic polyneuropathy E11.42 [facility] [id number] [place] [address] [id number] Jan, Type 2 diabetes mellitus with diabetic polyneuropathy E11.42 IMMUNIZATIONS No Known Immunizations SOCIAL HISTORY Never Assessed REASON FOR VISIT Controlled Med Refill 04/21/18 PLAN OF CARE VITAL SIGNS MEDICATIONS Medication Instructions Dosage Frequency Start Date End Date Duration Status Pantoprazole Sodium 40 MG Orally Once a day 1 packet 24h 15 May, 2017 90 days Active Lyrica 50 mg Orally Twice a day 1 capsule 12h Oct, 30 days Active Gabapentin 600 MG Orally Three times a day 1 tablet 8h 21 Jan, 2016 90 days Active Lisinopril 10 mg Orally Once a day 1 tablet 24h 90 days Active MetFORMIN HCl ER 500 mg Orally twice a day 2 tablets 12h 10 Jul, 2016 90 days Active RESULTS No Results PROCEDURES [...] stents to the right coronary artery by [facility] 05/31/17 Hospitalization History ER Visit for increased heart rate and elevated blood sugar 08/2015 Hospitalization History Had tooth extracted and became septic, was in hospital for several days. 1999 Hospitalization History [facility] discharge dx PAD,CAD, and SVT. Pt has f/u scheduled with 06/0205/31/2016 Hospitalization History PSVT, Hypotension, CAD-[facility] 03/13/18
--- OUTSIDE RECORDS SUMMARY | 2019-03-03 11:19 | XMS REPORT ---
Author Author ESTRELLITA PANDYA Organization [facility] Address [address] [place] [address] Care Team Providers Care Tank Erector Name Role Phone ESTRELLITA PANDYA Unavailable PROBLEMS Type Condition ICD9-CM Code FPA70-EL Code Onset Dates Condition Status SNOMED Code Problem Hypertension, unspecified type I10 Active 60447160 Problem Chronic GERD K21.9 Active 315037793 Problem PAD (peripheral artery disease) I73.9 Active 093258746 Problem 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 14309142 Problem PSVT (paroxysmal supraventricular tachycardia) I47.1 Active 24568392 Problem Chronic obstructive pulmonary disease, unspecified COPD type J44.9 Active 17936833 Problem Hematochezia K92.1 Active 704394162770114 Problem Chronic ischemic heart disease I25.9 Active 832300887 Problem Mixed hyperlipidemia E78.2 Active 053670424 Problem Degenerative disc disease, lumbar M51.36 Active 45393344 ALLERGIES No Information ENCOUNTERS Encounter Location Date Diagnosis [facility] [id number], [place] [address] Jun, [facility] [address] [id number] [phone] Jun, Mixed hyperlipidemia E78.2 [facility] [id number] [place] [address]117- [address]373 Jun, [facility] [id number] [place] [address]- 8807 May, [facility] [id number] [place] [address]- 3030 May, [facility] [id number] [address] May, [facility] [id number] [address] May, [facility] [id number] [place] [address] 78394- 6559 May, [facility] [id number] [place] [address] 87217- 7670 May, Type 2 diabetes mellitus with diabetic polyneuropathy E11.42 ; PSVT (paroxysmal supraventricular tachycardia) I47.1 ; PAD (peripheral artery disease) I73.9 ; Chronic obstructive pulmonary disease, unspecified COPD type J44.[address] [facility] [id number] [place] [address] 13827- 8745 Apr, [facility] [id number] [place] [address] 23419- 5066 Apr, Type 2 diabetes mellitus with diabetic polyneuropathy E11.42 and Chronic GERD K21.9 [facility] [id number] [place] [address] 68287- 9904 Mar, [facility] [address] [address] Mar, [facility] [id number] [place] [address] 58020- 7234 Mar, [facility] [address], [place] [address] Mar, Hypercholesteremia E78.0 ; Chronic obstructive pulmonary disease, unspecified COPD type J44.9 and PSVT (paroxysmal supraventricular tachycardia) I47.1 [facility] [address], [place] [address] Mar, Type 2 diabetes mellitus with diabetic polyneuropathy E11.42 [facility] [id number], [place] [address] February, [facility] [address], [place] [address] February, PSVT (paroxysmal supraventricular tachycardia) I47.1 [address] [id number] [place] [address] 72438- 4029 February, COPD exacerbation J44.1 [place] [facility] [id number] [place] [address] 64120- 9654 February, COPD exacerbation J44.1 [place] [id number] [place] [address] 60268- 2142 February, [place] [address] [address]- [address] February, [place] [address] [address]- 2702 February, Type 2 diabetes mellitus with diabetic polyneuropathy E11.42 and Chronic obstructive pulmonary disease, unspecified COPD type J44.[address] [address]- [address] February, [place] [id number] [place] [address] 11396- 3080 Jan, Type 2 diabetes mellitus with diabetic polyneuropathy E11.42 and Chronic GERD K21.9 [place] [id number] [place] [address] 89275- 2546 Jan, Type 2 diabetes mellitus with diabetic polyneuropathy E11.42 ; Mixed hyperlipidemia E78.2 ; Chronic obstructive pulmonary disease, unspecified COPD type J44.9 ; Hematochezia K92.1 and Degenerative disc disease, lumbar M51.36 [address] [id number] Jan, Chronic ischemic heart disease I25.9 [id number] [place] [address] 68116- 1892 Jan, PAD (peripheral artery disease) I73.9 and Type 2 diabetes mellitus with diabetic polyneuropathy E11.42 [id number] [place] [address] 96879- 8559 Dec, Type 2 diabetes mellitus with diabetic polyneuropathy E11.42 ; Hematochezia K92.1 ; PAD (peripheral artery disease) I73.9 ; Chronic ischemic heart disease I25.9 and Weakness of left lower extremity R29.898 [facility] [address], [place] [address] Dec, Type 2 diabetes mellitus with diabetic polyneuropathy E11.42 [facility] [id number] [place] [address] 71643- 5590 Nov, Type 2 diabetes mellitus with diabetic polyneuropathy E11.42 and PAD (peripheral artery disease) I73.9 [facility] [address] [place] [address] 49506- 1778 Oct, Type 2 diabetes mellitus with diabetic polyneuropathy E11.42 [address] [id number] Oct, Type 2 diabetes mellitus with diabetic polyneuropathy E11.42 [facility] [address] [place] [address] 69506- 1643 Oct, Type 2 diabetes mellitus with diabetic polyneuropathy E11.42 and Chronic GERD K21.9 [facility] [address] [place] [address] 04214- 9072 Oct, Chronic GERD K21.9 [facility] [address], [place] [address] Sep, [facility] [address] [place] [address] 30660- 7602 Sep, [facility] [address], [place] [address] 8312 Sep, Type 2 diabetes mellitus with diabetic polyneuropathy E11.42 [facility] [address], [place] [address] Aug, [facility] [address] [address] Aug, [facility] [address], [place] [address] Aug, [facility] [id number] [place] [address] 84950- 7923 Aug, Type 2 diabetes mellitus with diabetic polyneuropathy E11.42 [facility] [id number] [place] [address] 43031- 1972 Jul, Type 2 diabetes mellitus with diabetic polyneuropathy E11.42 ; Chronic GERD K21.9 ; Hypercholesteremia E78.0 and PAD (peripheral artery disease) I73.9 [facility] [id number] [place] [address] 42191- 9379 Jul, Type 2 diabetes mellitus with diabetic polyneuropathy E11.42 [facility] [id number] [place] [address] 31687- 7362 Jul, [place] [id number] [place] [id number] Jul, [facility] [id number] [place] [address] 72159- 8619 Jul, Type 2 diabetes mellitus with diabetic polyneuropathy E11.42 [place] [id number] [place] [address] 13184- 2778 Jul, [address] [place] [address] [phone] Jul, Mixed hyperlipidemia E78.2 ; Hypertension, unspecified type I10 ; PAD ( peripheral artery disease) I73.9 and Chronic ischemic heart disease I25.9 [facility] [address] [place] [address] 90748- 0617 Jun, Type 2 diabetes mellitus with diabetic polyneuropathy E11.42 [facility] [id number] [place] [address] 53398- 0450 Jun, Type 2 diabetes mellitus with diabetic polyneuropathy E11.42 [address] [place] [id number] Jun, [facility] [address], [place] [address] 2546 Jun, Type 2 diabetes mellitus with diabetic polyneuropathy E11.42 ; PAD (peripheral artery disease) I73.9 ; Hypercholesteremia E78.0 and Hypertension, unspecified type I10 [facility] [id number] [place] [address] [id number] Jun, Type 2 diabetes mellitus with diabetic polyneuropathy E11.42 [facility] [id number] [place] [address] 20080 2546 May, [facility] [id number] [place] [address] 82109 2546 May, [facility] [id number] [place] [address] [id number] Apr, Abscess L02.91 [facility] [id number] [place] [address] [id number] Apr, [facility] [id number] [place] [address] [id number] Apr, Dental caries K02.9 and Dental examination Z01.20 [facility] [id number] [place] [address] [id number] Apr, Type 2 diabetes mellitus with diabetic polyneuropathy E11.42 [facility] [id number] [place] [address] [id number] Mar, Type 2 diabetes mellitus with diabetic polyneuropathy E11.42 [facility] [id number] [place] [address] [id number] Mar, Abscess L02.91 and Type 2 diabetes mellitus with diabetic polyneuropathy E11.42 [facility] [id number] [place] [address] [id number] February, Abscess L02.91 [facility] [id number] [place] [address] [id number] Jan, [facility] [address] [id number] [place] [address] [id number] Jan, Type 2 diabetes mellitus with diabetic polyneuropathy E11.42 [facility] [id number] [phone] Jan, [facility] [id number] [place] [address] [id number] Jan, Abscess L02.91 [facility] [id number] [place] [address] [id number] Dec, Type 2 diabetes mellitus with diabetic polyneuropathy E11.42 [facility] [id number] [place] [address] [id number] Nov, Type 2 diabetes mellitus with diabetic polyneuropathy E11.42 [facility] [id number] [place] [address] [id number] Oct, Type 2 diabetes mellitus with diabetic polyneuropathy E11.42 [facility] [id number] [place] [address] [id number] Oct, Type 2 diabetes mellitus with diabetic polyneuropathy E11.42 [facility] [id number] [place] [address] [id number] Oct, Type 2 diabetes mellitus with diabetic polyneuropathy E11.42 and Hydrocele , unspecified hydrocele type N43.3 [facility] [id number] [place] [address] [id number] Sep, Enlarged testicle N50.89 [facility] [id number] [place] [address] [id number] Sep, Enlarged testicle N50.89 [facility] [id number] [place] [address] [id number] Sep, Type 2 diabetes mellitus with diabetic polyneuropathy E11.42 [facility] [id number] [place] [address] [id number] Sep, [facility] [id number] [place] [address] [id number] Aug, Dyspepsia R10.13 and Type 2 diabetes mellitus with diabetic polyneuropathy E11.42 [facility] [id number] [place] [address] [id number] Jul, [facility] [id number] [place] [address] [id number] Jul, Type 2 diabetes mellitus with diabetic polyneuropathy E11.42 and Dyspepsia R10.13 [facility] [address] [id number] [id number] Jun, [facility] [id number] [place] [address] [id number] Jun, [facility] [address] [id number] [id number] Jun, Type 2 diabetes mellitus with diabetic polyneuropathy E11.42 and Boils L02.92 [facility] [id number] [place] [address] [id number] May, Type 2 diabetes mellitus with diabetic polyneuropathy E11.42 [facility] [address] [id number] [place] [address] [id number] May, Type 2 diabetes mellitus with diabetic polyneuropathy E11.42 and Bloating R14.0 [facility] [id number] [place] [address] [id number] Apr, [facility] [address] [id number] Apr, [facility] [address] [id number] [id number] Apr, Type 2 diabetes mellitus with diabetic polyneuropathy E11.42 [facility] [id number] [place] [address] [id number] Mar, [facility] [address] [id number] [id number] Mar, Type 2 diabetes mellitus with diabetic polyneuropathy E11.42 [facility] [address] [id number] [id number] February, Type 2 diabetes mellitus with diabetic polyneuropathy E11.42 [facility] [id number] [place] [address] [id number] February, Type 2 diabetes mellitus with diabetic polyneuropathy E11.42 [facility] [id number] [place] [address] [id number] February, Type 2 diabetes mellitus with diabetic polyneuropathy E11.42 and Hypercholesteremia E78.0 [facility] [address] [id number] [place] [id number] Jan, Type 2 diabetes mellitus with diabetic polyneuropathy E11.42 [facility] [address] [facility] [id number] [place] [phone] Jan, Type 2 diabetes mellitus with diabetic polyneuropathy E11.42 IMMUNIZATIONS No Known Immunizations SOCIAL HISTORY Never Assessed REASON FOR VISIT Refill request PLAN OF CARE VITAL SIGNS MEDICATIONS [...] stents to the right coronary artery by [facility] 05/31/17 Hospitalization History ER Visit for increased heart rate and elevated blood sugar 08/2015 Hospitalization History Had tooth extracted and became septic, was in hospital for several days. 1999 Hospitalization History [facility] discharge dx PAD,CAD, and SVT. Pt has f/u scheduled with 06/0205/31/2016 Hospitalization History PSVT, Hypotension, CAD-[facility] 03/13/18
--- OUTSIDE RECORDS SUMMARY | 2019-03-03 11:20 | XMS REPORT ---
Author Author ESTRELLITA PANDYA Organization [facility] Address [address] [place] [address] Care Team Providers Care Events Manager Name Role Phone ESTRELLITA PANDYA Unavailable PROBLEMS Type Condition ICD9-CM Code WEU21-KH Code Onset Dates Condition Status SNOMED Code Problem Hypertension, unspecified type I10 Active 53139049 Problem Chronic GERD K21.9 Active 961268239 Problem PAD (peripheral artery disease) I73.9 Active 932958224 Problem 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 48537583 Problem PSVT (paroxysmal supraventricular tachycardia) I47.1 Active 60523853 Problem Chronic obstructive pulmonary disease, unspecified COPD type J44.9 Active 60957704 Problem Hematochezia K92.1 Active [id number] Problem Chronic ischemic heart disease I25.9 Active 588217455 Problem Mixed hyperlipidemia E78.2 Active 525856622 Problem Degenerative disc disease, lumbar M51.36 Active 61342995 ALLERGIES No Information ENCOUNTERS Encounter Location Date Diagnosis [place] [id number] [place] [address] 54104- 8518 May, [place] [id number] [place] [address] 45101- 5654 May, Type 2 diabetes mellitus with diabetic polyneuropathy E11.42 ; PSVT (paroxysmal supraventricular tachycardia) I47.1 ; PAD (peripheral artery disease) I73.9 ; Chronic obstructive pulmonary disease, unspecified COPD type J44.9 and Skin sore L98.9 [place] [id number] [place] [address] 06143- 4455 Apr, [place] [id number] [place] [address] 39281- 3174 Apr, Type 2 diabetes mellitus with diabetic polyneuropathy E11.42 and Chronic GERD K21.9 [facility] [id number] [place] [address] 19621- 6829 Mar, [facility] [id number] [place] [address] 91615- 1510 Mar, [facility] [id number] [place] [address] 03927- 9265 Mar, [facility] [id number] [place] [address] 47970- 1493 Mar, Hypercholesteremia E78.0 ; Chronic obstructive pulmonary disease, unspecified COPD type J44.9 and PSVT (paroxysmal supraventricular tachycardia) I47.1 [place] [id number] [place] [address] 44988- 3618 Mar, Type 2 diabetes mellitus with diabetic polyneuropathy E11.42 [place] [id number] [place] [address] 44984- 3363 February, [facility] [id number] [place] [address] 17354- 7018 February, PSVT (paroxysmal supraventricular tachycardia) I47.1 [facility] [id number] [place] [address] 96549- 7776 February, COPD exacerbation J44.1 [facility] [id number] [place] [address] 30126- 5590 February, COPD exacerbation J44.1 [facility] [id number] [place] [address] 52990- 8707 February, [facility] [id number] [place] [address] 64455- 7527 February, [facility] [id number] [place] [address] 97299- 5409 February, Type 2 diabetes mellitus with diabetic polyneuropathy E11.42 and Chronic obstructive pulmonary disease, unspecified COPD type J44.9 [facility] [id number] [place] [address] 83325- 7476 February, [place] [id number] [place] [address] 87464- 9014 Jan, Type 2 diabetes mellitus with diabetic polyneuropathy E11.42 and Chronic GERD K21.9 [place] [id number] [place] [address] 92772- 6068 Jan, Type 2 diabetes mellitus with diabetic polyneuropathy E11.42 ; Mixed hyperlipidemia E78.2 ; Chronic obstructive pulmonary disease, unspecified COPD type J44.9 ; Hematochezia K92.1 and Degenerative disc disease, lumbar M51.36 [address] [place] [address] [id number] Jan, Chronic ischemic heart disease I25.9 [place] [id number] [place] [address] 09406- 1267 Jan, PAD (peripheral artery disease) I73.9 and Type 2 diabetes mellitus with diabetic polyneuropathy E11.42 [place] [place] [id number] [place] [address] 27446- 5459 Dec, Type 2 diabetes mellitus with diabetic polyneuropathy E11.42 ; Hematochezia K92.1 ; PAD (peripheral artery disease) I73.9 ; Chronic ischemic heart disease I25.9 and Weakness of left lower extremity R29.898 [facility] [id number] [address] 8[address] Dec, Type 2 diabetes mellitus with diabetic polyneuropathy E11.42 [place] [id number] [place] [address] 54159- 8685 Nov, Type 2 diabetes mellitus with diabetic polyneuropathy E11.42 and PAD (peripheral artery disease) I73.9 [place] [id number] [place] [address] 17796- 5751 Oct, Type 2 diabetes mellitus with diabetic polyneuropathy E11.42 [address] [place] [id number] Oct, Type 2 diabetes mellitus with diabetic polyneuropathy E11.42 [facility] [address] [address]- 7286 Oct, Type 2 diabetes mellitus with diabetic polyneuropathy E11.42 and Chronic GERD K21.9 [facility] [address] [address]- 8146 Oct, Chronic GERD K21.9 [facility] [id number] [place] [address] 17585- 0128 Sep, [facility] [id number] [place] [address] 18754- 0585 Sep, [facility] [id number] [place] [address] 15418- 9461 Sep, Type 2 diabetes mellitus 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 [facility] [id number] [place] [address] 48824- 5115 Aug, [facility] [id number] [place] [address] 72232- 9165 Aug, [facility] [id number] [place] [address] 29954- 4250 Aug, [facility] [address] [place] [address] 03059- 8699 Aug, Type 2 diabetes mellitus with diabetic polyneuropathy E11.42 [facility] [address] [place] [address] 65513- 1120 Jul, Type 2 diabetes mellitus with diabetic polyneuropathy E11.42 ; Chronic GERD K21.9 ; Hypercholesteremia E78.0 and PAD (peripheral artery disease) I73.9 [facility] [id number] [place] [address] 59439- 9813 Jul, Type 2 diabetes mellitus with diabetic polyneuropathy E11.42 [facility] [address] [address]- 7177 Jul, [place] [id number] [id number] Jul, [facility] [id number] [place] [address] 92278- 6193 Jul, Type 2 diabetes mellitus with diabetic polyneuropathy E11.42 [facility] [address] [address]- 7456 Jul, [facility] [id number] [place] [address] [id number] Jul, Mixed hyperlipidemia E78.2 ; Hypertension, unspecified type I10 ; PAD ( peripheral artery disease) I73.9 and Chronic ischemic heart disease I25.9 [facility] [id number] [place] [address] 61196- 8309 Jun, Type 2 diabetes mellitus with diabetic polyneuropathy E11.42 [facility] [id number] [place] [address] 53389- 7729 Jun, Type 2 diabetes mellitus with diabetic polyneuropathy E11.42 [facility] [id number] [place] [id number] Jun, [facility] [id number] [place] [address] 13108- 4418 Jun, Type 2 diabetes mellitus with diabetic polyneuropathy E11.42 ; PAD (peripheral artery disease) I73.9 ; Hypercholesteremia E78.0 and Hypertension, unspecified type I10 [facility] [id number] [place] [address] [id number] Jun, Type 2 diabetes mellitus with diabetic polyneuropathy E11.42 [facility] [id number] [place] [address] 10775- 6201 May, [facility] [id number] [place] [address] 50818- 3282 May, [facility] [id number] [place] [id number] Apr, Abscess L02.91 [facility] [id number] [place] [address] [id number] Apr, [facility] [address] [id number] [place] [id number] Apr, Dental caries K02.9 and Dental examination Z01.[address] [facility] [address] [id number] [place] [id number] Apr, Type 2 diabetes mellitus with diabetic polyneuropathy E11.[address] [facility] [address] [id number] [place] [id number] Mar, Type 2 diabetes mellitus with diabetic polyneuropathy E11.[address] [id number] [place] [id number] Mar, Abscess L02.91 and Type 2 diabetes mellitus with diabetic polyneuropathy E11.[address] [id number] [place] [id number] February, Abscess L02.[address] [id number] [place] [id number] Jan, [facility] [id number] [place] [address] [id number] Jan, Type 2 diabetes mellitus with diabetic polyneuropathy E11.[address] [id number] [place] [id number] Jan, [facility] [id number] [place] [address] [id number] Jan, Abscess L02.[address] [id number] [place] [id number] Dec, Type 2 diabetes mellitus with diabetic polyneuropathy E11.[address] [id number] [place] [id number] Nov, Type 2 diabetes mellitus with diabetic polyneuropathy E11.[address] [id number] [place] [id number] Oct, Type 2 diabetes mellitus with diabetic polyneuropathy E11.[address] [id number] [place] [id number] Oct, Type 2 diabetes mellitus with diabetic polyneuropathy E11.[id number] [place] [address] [id number] Oct, Type 2 diabetes mellitus with diabetic polyneuropathy E11.42 and Hydrocele , unspecified hydrocele type N43.3 [facility] [id number] [place] [address] [id number] Sep, Enlarged testicle N50.89 [facility] [id number] [place] [address] [id number] Sep, Enlarged testicle N50.89 [facility] [id number] [place] [address] [id number] Sep, Type 2 diabetes mellitus with diabetic polyneuropathy E11.42 [facility] [id number] [place] [address] [id number] Sep, [facility] [id number] [place] [address] [id number] Aug, Dyspepsia R10.13 and Type 2 diabetes mellitus with diabetic polyneuropathy E11.42 [facility] [id number] [place] [address] [id number] Jul, [facility] [id number] [place] [address] [id number] Jul, Type 2 diabetes mellitus with diabetic polyneuropathy E11.42 and Dyspepsia R10.13 [facility] [id number] [place] [address] [id number] Jun, [facility] [id number] [place] [address] [id number] Jun, [facility] [id number] [place] [address] [id number] Jun, Type 2 diabetes mellitus with diabetic polyneuropathy E11.42 and Boils L02.92 [facility] [id number] [place] [address] [id number] May, Type 2 diabetes mellitus with diabetic polyneuropathy E11.42 [facility] [id number] [place] [address] [id number] May, Type 2 diabetes mellitus with diabetic polyneuropathy E11.42 and Bloating R14.0 [facility] [id number] [place] [address] [id number] Apr, [facility] [facility] [address] [id number] [place] [id number] Apr, [facility] [address] [id number] Apr, Type 2 diabetes mellitus with diabetic polyneuropathy E11.42 [facility] 120 [facility] [id number] [place] [id number] Mar, [facility] [address] [place] [address] [id number] Mar, Type 2 diabetes mellitus with diabetic polyneuropathy E11.42 [facility] 120 [facility] [id number] [place] [address] [id number] February, Type 2 diabetes mellitus with diabetic polyneuropathy E11.42 [address] [place] [address] [id number] February, Type 2 diabetes mellitus with diabetic polyneuropathy E11.42 [address] [place] [address] [id number] February, Type 2 diabetes mellitus with diabetic polyneuropathy E11.42 and Hypercholesteremia E78.0 [facility] [address] [place] [address] [id number] Jan, Type 2 diabetes mellitus with diabetic polyneuropathy E11.42 [address] [id number] Jan, Type 2 diabetes mellitus with diabetic polyneuropathy E11.42 IMMUNIZATIONS No Known Immunizations SOCIAL HISTORY Never Assessed REASON FOR VISIT Repository Medication PLAN OF CARE VITAL SIGNS MEDICATIONS Medication Instructions Dosage Frequency Start Date End Date Duration Status MetFORMIN HCl ER 500 MG Orally twice a day 2 tablet with evening meal 12h Jul, Active Lyrica 50 mg Orally Twice a day 1 capsule 12h Oct, 30 days Active RESULTS No Results PROCEDURES [...] scheduled with 06/0205/31/2016 Hospitalization History PSVT, Hypotension, CAD-[facility] 03/13/18
--- OUTSIDE RECORDS SUMMARY | 2019-03-03 11:20 | XMS REPORT ---
Author Author ESTRELLITA PANDYA Organization [facility] [facility] Address [address] [place] [address] Care Team Providers Care Outside Sales Manager Name Role Phone ESTRELLITA PANDYA Unavailable PROBLEMS Type Condition ICD9-CM Code [id number] Code Onset Dates Condition Status SNOMED Code Problem Hypertension, unspecified type I10 Active 94703495 Problem Chronic GERD K21.9 Active 012453585 Problem PAD (peripheral artery disease) I73.9 Active 453962594 Problem 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 94870088 Problem PSVT (paroxysmal supraventricular tachycardia) I47.1 Active 51038425 Problem Chronic obstructive pulmonary disease, unspecified COPD type J44.9 Active 93735888 Problem Hematochezia K92.1 Active 948680104705131 Problem Chronic ischemic heart disease I25.9 Active 270583899 Problem Mixed hyperlipidemia E78.2 Active 871410041 Problem Degenerative disc disease, lumbar M51.36 Active 67777552 ALLERGIES Substance Reaction Event Type Date Status Penicillin V Potassium rash Drug Allergy Mar, Active ENCOUNTERS Encounter Location Date Diagnosis [place] [id number] [address] [phone]- [phone] May, [place] [address] [place] [id number] [place] [address] 25400- 9363 May, Type 2 diabetes mellitus with diabetic polyneuropathy E11.42 ; PSVT (paroxysmal supraventricular tachycardia) I47.1 ; PAD (peripheral artery disease) I73.9 ; Chronic obstructive pulmonary disease, unspecified COPD type J44.9 and Skin sore L98.9 [place] [id number] [address] 19093- 7320 Apr, [place] [address] [place] [id number] [place] [address] 04480- 4393 Apr, Type 2 diabetes mellitus with diabetic polyneuropathy E11.42 and Chronic GERD K21.9 [facility] [place] [facility] [address] [place] [id number] [place] [address] 69204- [phone] Mar, [facility] [place] [facility] [address] [place] [id number] [place] [address] 42519- 5104 Mar, [facility] [place] [facility] [address] [place] [id number] [place] [address] 79195- 5063 Mar, [facility] [place] [facility] [address] [place] [id number] [place] [address] [phone]- [phone] Mar, Hypercholesteremia E78.0 ; Chronic obstructive pulmonary disease, unspecified COPD type J44.9 and PSVT (paroxysmal supraventricular tachycardia) I47.1 [facility] [place] [facility] [address] [place] [id number] [place] [address] 05745- 3254 Mar, Type 2 diabetes mellitus with diabetic polyneuropathy E11.42 [facility] [place] [facility] [address] [place] [id number] [place] [address] 75055- 9384 February, [facility] [place] [facility] [address] [place] [id number] [place] [address] 76246- 4712 February, PSVT (paroxysmal supraventricular tachycardia) I47.1 [facility] [facility] [address] [place] [id number] [place] [address] 91413- 3347 February, COPD exacerbation J44.1 [facility] [place] [facility] [address] [place] [id number] [place] [address] 63819- 0625 February, COPD exacerbation J44.1 [facility] [place] [facility] [address] [address] 2181 February, [facility] [place] [facility] [address] [place] [id number] [place] [address] 90403- 7446 February, [facility] [place] [facility] [address] [place] [id number] [place] [address] 58628- 0417 February, Type 2 diabetes mellitus with diabetic polyneuropathy E11.42 and Chronic obstructive pulmonary disease, unspecified COPD type J44.9 [place] [address] [address] 1181 February, [place] [address] [place] [id number] [place] [address] 30764- 2427 Jan, Type 2 diabetes mellitus 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 and Chronic GERD K21.9 [place] [address] [place] [id number] [place] [address] 40117- 6128 Jan, Type 2 diabetes mellitus with diabetic polyneuropathy E11.42 ; Mixed hyperlipidemia E78.2 ; Chronic obstructive pulmonary disease, unspecified COPD type J44.9 ; Hematochezia K92.1 and Degenerative disc disease, lumbar M51.36 [place] [id number] [place] [address] [id number] Jan, Chronic ischemic heart disease I25.9 [place] [address] [place] [id number] [place] [address] 88583- 6907 Jan, PAD (peripheral artery disease) I73.9 and Type 2 diabetes mellitus with diabetic polyneuropathy E11.42 [place] [address] [place] [id number] [place] [address] 94627- 9787 Dec, Type 2 diabetes mellitus with diabetic polyneuropathy E11.42 ; Hematochezia K92.1 ; PAD (peripheral artery disease) I73.9 ; Chronic ischemic heart disease I25.9 and Weakness of left lower extremity R29.898 [place] [address] [place] [id number] [place] [address] 67829- 3619 Dec, Type 2 diabetes mellitus with diabetic polyneuropathy E11.42 [place] [address] [place] [id number] [place] [address] 27536- 7526 Nov, Type 2 diabetes mellitus with diabetic polyneuropathy E11.42 and PAD (peripheral artery disease) I73.9 [place] [address] [place] [id number] [place] [address] 52827- 9815 Oct, Type 2 diabetes mellitus with diabetic polyneuropathy E11.42 [place] [id number] [place] [address] [id number] Oct, Type 2 diabetes mellitus with diabetic polyneuropathy E11.42 [facility] [address] [place] [id number] [place] [address] 78728- 2602 Oct, Type 2 diabetes mellitus with diabetic polyneuropathy E11.42 and Chronic GERD K21.9 [facility] [address] [place] [id number] [place] [address] 29226- 1126 Oct, Chronic GERD K21.9 [facility] [facility] [address] [place] [id number] [place] [address] 26433- [phone] Sep, [facility] [address] [place] [id number] [place] [address] 67774- 1823 Sep, [facility] [facility] [address] [place] [id number] [place] [address] 19544- 5359 Sep, Type 2 diabetes mellitus with diabetic polyneuropathy E11.42 [facility] [address] [place] [id number] [place] [address] 41539- 5463 Aug, [facility] [address] [place] [id number] [place] [address] 28747- 0202 Aug, [facility] [address] [place] [id number] [place] [address] 28536- 2252 Aug, [facility] [address] [place] [id number] [place] [address] 56928- 8030 Aug, Type 2 diabetes mellitus 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 [facility] [address] [place] [id number] [place] [address] 50238- 0526 Jul, Type 2 diabetes mellitus with diabetic polyneuropathy E11.42 ; Chronic GERD K21.9 ; Hypercholesteremia E78.0 and PAD (peripheral artery disease) I73.9 [facility] [address] [place] [id number] [place] [address] 20898- 3835 Jul, Type 2 diabetes mellitus with diabetic polyneuropathy E11.42 [facility] [address] [place] [id number] [place] [address] 34505- 6418 Jul, [facility] [address] [id number] [id number] Jul, [facility] [address] [place] [id number] [place] [address] [phone]- 9126 Jul, Type 2 diabetes mellitus with diabetic polyneuropathy E11.42 [facility] [address] [address]- 7746 Jul, [facility] [address] [place] [address] [id number] Jul, Mixed hyperlipidemia E78.2 ; Hypertension, unspecified type I10 ; PAD ( peripheral artery disease) I73.9 and Chronic ischemic heart disease I25.9 [facility] [address] [place] [id number] [place] [address] 81459- 7072 Jun, Type 2 diabetes mellitus with diabetic polyneuropathy E11.42 [place] [address] [place] [id number] [place] [address] 91950- 6644 Jun, Type 2 diabetes mellitus with diabetic polyneuropathy E11.42 [facility] [address] [phone] Jun, [facility] [id number] [place] [address] 08643- [phone] Jun, Type 2 diabetes mellitus with diabetic polyneuropathy E11.42 ; PAD (peripheral artery disease) I73.9 ; Hypercholesteremia E78.0 and Hypertension, unspecified type I10 [facility] [address] [id number] Jun, Type 2 diabetes mellitus with diabetic polyneuropathy E11.42 [facility] [address] [address]- 5076 May, [facility] [address] [place] [id number] [place] [address] 42120- 7313 May, [facility] [address] [phone] Apr, Abscess L02.91 [facility] [address] [place] [address] [place] [phone] Apr, [facility] [address] [id number] [id number] Apr, Dental caries K02.9 and Dental examination Z01.20 [facility] [address] [id number] [place] [phone] Apr, Type 2 diabetes mellitus with diabetic polyneuropathy E11.[address] [facility] [address] [id number] [place] [phone] Mar, Type 2 diabetes mellitus with diabetic polyneuropathy E11.[address] [facility] [address] [id number] [place] [id number] Mar, Abscess L02.91 and Type 2 diabetes mellitus with diabetic polyneuropathy E11.[address] [facility] [address] [id number] [place] [phone] February, Abscess L02.[address] [facility] [address] [id number] [place] [phone] Jan, [facility] [address] [id number] [place] [phone] Jan, Type 2 diabetes mellitus with diabetic polyneuropathy E11.42 [facility] [address] [id number] [place] [phone] Jan, [facility] [address] [id number] [place] [phone] Jan, Abscess L02.[address] [facility] [address] [id number] [place] [phone] Dec, Type 2 diabetes mellitus with diabetic polyneuropathy E11.42 [facility] [address] [id number] [place] [phone] Nov, Type 2 diabetes mellitus with diabetic polyneuropathy E11.[address] [facility] [address] [id number] [place] [id number] Oct, Type 2 diabetes mellitus with diabetic polyneuropathy E11.42 [facility] [address] [id number] [place] [phone] Oct, Type 2 diabetes mellitus with diabetic polyneuropathy E11.[address] [facility] [address] [id number] [phone] Oct, Type 2 diabetes mellitus with diabetic polyneuropathy E11.42 and Hydrocele , unspecified hydrocele type N43.3 [facility] [id number] [place] [address] [id number] Sep, Enlarged testicle N50.89 [facility] [address] [id number] [place] [address] [id number] Sep, Enlarged testicle N50.89 [facility] [id number] [place] [address] [id number] Sep, Type 2 diabetes mellitus with diabetic polyneuropathy E11.42 [facility] [id number] [place] [address] [phone] Sep, [facility] [address] [id number] [place] [address] [id number] Aug, Dyspepsia R10.13 and Type 2 diabetes mellitus with diabetic polyneuropathy E11.42 [facility] [id number] [place] [address] [id number] Jul, [facility] [address] [place] [id number] [place] [address] [id number] Jul, Type 2 diabetes mellitus with diabetic polyneuropathy E11.42 and Dyspepsia R10.13 [facility] [address] [id number] [place] [address] [id number] Jun, [facility] [id number] [place] [address] [id number] Jun, [facility] [address] [place] [id number] [place] [address] [id number] Jun, Type 2 diabetes mellitus with diabetic polyneuropathy E11.42 and Boils L02.92 [facility] [id number] [place] [address] [id number] May, Type 2 diabetes mellitus with diabetic polyneuropathy E11.42 [facility] [id number] [address] [id number] May, Type 2 diabetes mellitus with diabetic polyneuropathy E11.42 and Bloating R14.0 [facility] [address] [id number] [phone] Apr, [facility] [address] [id number] [phone] Apr, [facility] [address] [facility] [id number] [phone] Apr, Type 2 diabetes mellitus with diabetic polyneuropathy E11.42 [facility] [address] [id number] [phone] Mar, [facility] [id number] [place] [address] [id number] Mar, Type 2 diabetes mellitus with diabetic polyneuropathy E11.42 [facility] [id number] [address] [id number] February, Type 2 diabetes mellitus with diabetic polyneuropathy E11.42 [facility] [id number] [place] [address] [id number] February, Type 2 diabetes mellitus with diabetic polyneuropathy E11.42 [facility] [id number] [address] [id number] February, Type 2 diabetes mellitus 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 PT states he went to the ER due to heart racing and BP very low. PT reports he stayed overnight in the ICU here at [facility]. , PT states he needs to discuss his medications today. PT notes his Advair does not seem to be helping. -Israel GARCÍA PLAN OF CARE Activity Details Follow Up as previously recommended Reason:COPD/PAD/DMT2 VITAL SIGNS Height 66.0 in 2018-03-30 Weight 192.5 lbs 2018-03-30 Temperature 98.0 degrees Fahrenheit 2018-03-30 Heart Rate 89 bpm 2018-03-30 Respiratory Rate 20 2018-03-30 Oximetry on room air:95 % 2018-03-30 BMI 31.07 kg/m2 2018-03-30 Blood pressure systolic 140 mmHg 2018-03-30 Blood pressure diastolic 80 mmHg 2018-03-30 MEDICATIONS Medication Instructions Dosage Frequency Start Date End Date Duration Status Aspirin 81 81 MG Orally Once a day 1 tablet 24h Active Tradjenta 5 mg Orally Once a day 1 tablet 24h 23 Jan, 2018 90 days Active Clopidogrel Bisulfate 75 MG Orally Once a day 1 tablet 24h 90 days Active Lisinopril 10 mg Orally Once a day 1 tablet 24h 90 days Active MetFORMIN HCl ER 500 MG Orally twice a day 2 tablet with evening meal 12h 10 Jul, 2016 Active Flovent Diskus 100 MCG/BLIST Inhalation Twice a day 1 puff 12h Mar, Active BD Pen Needle Nancy U/F BD PEN NEEDLE NANCY subcutaneous 2 times a day as directed 12h February, Not-Taking Accu-Chek Britt glucometer as directed Jan, Not-Taking Gabapentin 600 MG Orally Three times a day 1 capsule 8h Jan, 90 days Active Lyrica 50 mg Orally Twice a day 1 capsule 12h Oct, 30 days Active Pantoprazole Sodium 40 MG Orally Once a day 1 tablet 24h 15 May, 2017 90 days Active Acetaminophen Extra Strength 500 mg Orally every 4 hrs 3-4 tablet as needed 4h Active Lantus 100 UNIT/ML Subcutaneous 2 times a day 28 units 12h 14 Mar, 2016 90 days Active Crestor 20MG/ML Orally Once a day 1 tablet 24h 13 Jun, 2017 Active Metoprolol Succinate ER 25 MG Orally Once a day 1 tablet 24h 29 Jun, 2017 90 days Active BD Insulin Syringe 30G X 1/2 subcutaneously with insulin doses Use as directed Jun, Not-Taking Diltiazem CD 240 MG Orally Once a day 1 capsule 24h Active Accu-Chek Britt test strips as directed 8h Jan, Not-Taking RESULTS No Results PROCEDURES No Known procedures [...] stents to the right coronary artery by [facility] 05/31/17 Hospitalization History ER Visit for increased heart rate and elevated blood sugar 08/2015 Hospitalization History Had tooth extracted and became septic, was in hospital for several days. 1999 Hospitalization History [facility] discharge dx PAD,CAD, and SVT. Pt has f/u scheduled with 06/0205/31/2016 Hospitalization History PSVT, Hypotension, CAD-[facility] 03/13/18
--- OUTSIDE RECORDS SUMMARY | 2019-03-03 11:20 | XMS REPORT ---
Author Author ESTRELLITA PANDYA Organization [facility] Address [address] [place] [address] Care Team Providers Care Clinical Resource Manager Name Role Phone ESTRELLITA PANDYA Unavailable PROBLEMS Type Condition ICD9-CM Code IXB34-EX Code Onset Dates Condition Status SNOMED Code Problem Hypertension, unspecified type I10 Active 08782845 Problem Chronic GERD K21.9 Active 040513526 Problem PAD (peripheral artery disease) I73.9 Active 365588111 Problem 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 96011919 Problem PSVT (paroxysmal supraventricular tachycardia) I47.1 Active 71536444 Problem Chronic obstructive pulmonary disease, unspecified COPD type J44.9 Active 17686228 Problem Hematochezia K92.1 Active [id number] Problem Chronic ischemic heart disease I25.9 Active 460144268 Problem Mixed hyperlipidemia E78.2 Active 733534802 Problem Degenerative disc disease, lumbar M51.36 Active 07572673 ALLERGIES No Information ENCOUNTERS Encounter Location Date Diagnosis [place] [id number] [place] [address] [phone]- 5502 May, [place] [id number] [place] [address] 92429- 4838 May, Type 2 diabetes mellitus with diabetic polyneuropathy E11.42 ; PSVT (paroxysmal supraventricular tachycardia) I47.1 ; PAD (peripheral artery disease) I73.9 ; Chronic obstructive pulmonary disease, unspecified COPD type J44.9 and Skin sore L98.9 [place] [id number] [place] [address] 61510- 5700 Apr, [place] [id number] [place] [address] 69098- 6922 Apr, Type 2 diabetes mellitus with diabetic polyneuropathy E11.42 and Chronic GERD K21.9 [facility] [id number] [place] [address] 56377- 5953 Mar, [facility] [id number] [place] [address] 97982- [phone] Mar, [facility] [id number] [place] [address] 06709- 5781 Mar, [facility] [id number] [place] [address] 37442- 9625 Mar, Hypercholesteremia E78.0 ; Chronic obstructive pulmonary disease, unspecified COPD type J44.9 and PSVT (paroxysmal supraventricular tachycardia) I47.1 [place] [id number] [place] [address] 70385- 4179 Mar, Type 2 diabetes mellitus with diabetic polyneuropathy E11.42 [place] [id number] [place] [address] 12451- 8089 February, [facility] [id number] [place] [address] 69723- 7465 February, PSVT (paroxysmal supraventricular tachycardia) I47.1 [facility] [id number] [place] [address] 25085- 7818 February, COPD exacerbation J44.1 [facility] [id number] [place] [address] 35857- 9944 February, COPD exacerbation J44.1 [facility] [address] [place] [address] 67946- 9986 February, [facility] [id number] [place] [address] 30456- 2559 February, [facility] [id number] [place] [address] 38563- 8823 February, Type 2 diabetes mellitus with diabetic polyneuropathy E11.42 and Chronic obstructive pulmonary disease, unspecified COPD type J44.9 [facility] [id number] [place] [address] 56830- 6819 February, [place] [id number] [place] [address] 10295- 8907 Jan, Type 2 diabetes mellitus with diabetic 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 and Chronic GERD K21.9 [place] [id number] [place] [address] 83775- 6676 Jan, Type 2 diabetes mellitus 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 ; Mixed hyperlipidemia E78.2 ; Chronic obstructive pulmonary disease, unspecified COPD type J44.9 ; Hematochezia K92.1 and Degenerative disc disease, lumbar M51.36 [address] [place] [address] [phone] Jan, Chronic ischemic heart disease I25.9 [place] [id number] [place] [address] 68460- 3718 Jan, PAD (peripheral artery disease) I73.9 and Type 2 diabetes mellitus with diabetic polyneuropathy E11.42 [place] [id number] [place] [address] 23093- 2284 Dec, Type 2 diabetes mellitus with diabetic polyneuropathy E11.42 ; Hematochezia K92.1 ; PAD (peripheral artery disease) I73.9 ; Chronic ischemic heart disease I25.9 and Weakness of left lower extremity R29.898 [place] [address] [address] Dec, Type 2 diabetes mellitus with diabetic polyneuropathy E11.42 [place] [address] [place] [address] 48589- 4408 Nov, Type 2 diabetes mellitus with diabetic polyneuropathy E11.42 and PAD (peripheral artery disease) I73.9 [place] [id number] [place] [address] 20819- 0607 Oct, Type 2 diabetes mellitus with diabetic polyneuropathy E11.42 [address] [id number] Oct, Type 2 diabetes mellitus with diabetic polyneuropathy E11.42 [facility] [address] [address] 5[address] Oct, Type 2 diabetes mellitus with diabetic polyneuropathy E11.42 and Chronic GERD K21.9 [facility] [address] [address] 4[address] Oct, Chronic GERD K21.9 [facility] [id number] [place] [address] 38543- 4605 Sep, [facility] [id number] [place] [address] 09959- 6570 Sep, [facility] [id number] [place] [address] 13371- 5110 Sep, Type 2 diabetes mellitus with diabetic polyneuropathy E11.42 [facility] [id number] [place] [address] 43865- 8086 Aug, [facility] [id number] [place] [address] 64031- 3469 Aug, [facility] [address] [place] [address] 62298- 1217 Aug, [facility] [address] [place] [address] 13016- 6444 Aug, Type 2 diabetes mellitus with diabetic polyneuropathy E11.42 [facility] [address] [place] [address] 96912- 2804 Jul, Type 2 diabetes mellitus with diabetic polyneuropathy E11.42 ; Chronic GERD K21.9 ; Hypercholesteremia E78.0 and PAD (peripheral artery disease) I73.9 [facility] [id number] [place] [address] 81007- 6701 Jul, Type 2 diabetes mellitus with diabetic polyneuropathy E11.42 [facility] [address], [place] [address] 8629 Jul, [place] [id number] [id number] Jul, [facility] [id number] [place] [address] 70545- 5311 Jul, Type 2 diabetes mellitus with diabetic polyneuropathy E11.42 [facility] [address] [address] 3[address] Jul, [facility] [id number] [place] [address] [phone] Jul, Mixed hyperlipidemia E78.2 ; Hypertension, unspecified type I10 ; PAD ( peripheral artery disease) I73.9 and Chronic ischemic heart disease I25.9 [facility] [id number] [place] [address] 30649- 1357 Jun, Type 2 diabetes mellitus with diabetic polyneuropathy E11.42 [facility] [id number] [place] [address] 35968- 8835 Jun, Type 2 diabetes mellitus with diabetic polyneuropathy E11.42 [facility] [id number] [phone] Jun, [facility] [id number] [place] [address] 87329- 0467 Jun, Type 2 diabetes mellitus with diabetic polyneuropathy E11.42 ; PAD (peripheral artery disease) I73.9 ; Hypercholesteremia E78.0 and Hypertension, unspecified type I10 [facility] [id number] [place] [address] [phone] Jun, Type 2 diabetes mellitus with diabetic polyneuropathy E11.42 [facility] [address] [place] [address] 14267- 0784 May, [facility] [id number] [place] [address] 70886- 8799 May, [facility] [id number] [phone] Apr, Abscess L02.91 [facility] [address] [place] [id number] [place] [address] [phone] Apr, [facility] [address] [id number] [place] [phone] Apr, Dental caries K02.9 and Dental examination Z01.20 [facility] [address] [id number] [phone] Apr, Type 2 diabetes mellitus with diabetic polyneuropathy E11.[address] [facility] [address] [id number] [place] [phone] Mar, Type 2 diabetes mellitus with diabetic polyneuropathy E11.[address] [id number] [place] [id number] Mar, Abscess L02.91 and Type 2 diabetes mellitus with diabetic polyneuropathy E11.[address] [id number] [place] [id number] February, Abscess L02.[address] [id number] [place] [phone] Jan, [facility] [id number] [place] [address] [phone] Jan, Type 2 diabetes mellitus with diabetic polyneuropathy E11.[address] [id number] [place] [phone] Jan, [facility] [id number] [place] [address] [id number] Jan, Abscess L02.[address] [id number] [place] [phone] Dec, Type 2 diabetes mellitus with diabetic polyneuropathy E11.[address] [id number] [phone] Nov, Type 2 diabetes mellitus with diabetic polyneuropathy E11.[address] [id number] [place] [phone] Oct, Type 2 diabetes mellitus with diabetic polyneuropathy E11.[address] [id number] [place] [phone] Oct, Type 2 diabetes mellitus with diabetic polyneuropathy E11.[id number] [place] [address] [id number] Oct, Type 2 diabetes mellitus with diabetic polyneuropathy E11.42 and Hydrocele , unspecified hydrocele type N43.3 [facility] [id number] [place] [address] [phone] Sep, Enlarged testicle N50.89 [facility] [id number] [place] [address] [id number] Sep, Enlarged testicle N50.89 [facility] [id number] [place] [address] [id number] Sep, Type 2 diabetes mellitus with diabetic polyneuropathy E11.42 [facility] [id number] [place] [address] [phone] Sep, [facility] [id number] [place] [address] [id number] Aug, Dyspepsia R10.13 and Type 2 diabetes mellitus with diabetic polyneuropathy E11.42 [facility] [id number] [place] [address] [phone] Jul, [facility] [id number] [place] [address] [id number] Jul, Type 2 diabetes mellitus with diabetic polyneuropathy E11.42 and Dyspepsia R10.13 [facility] [id number] [place] [address] [id number] Jun, [facility] [id number] [place] [address] [id number] Jun, [facility] [address] [place] [address] [id number] Jun, Type 2 diabetes mellitus with diabetic polyneuropathy E11.42 and Boils L02.92 [facility] [id number] [place] [address] [id number] May, Type 2 diabetes mellitus with diabetic polyneuropathy E11.42 [facility] [id number] [place] [address] [phone] May, Type 2 diabetes mellitus with diabetic polyneuropathy E11.42 and Bloating R14.0 [facility] [id number] [place] [address] [phone] Apr, [facility] [address] [id number] [place] [phone] Apr, [facility] [id number] [phone] Apr, Type 2 diabetes mellitus with diabetic polyneuropathy E11.42 [facility] [address] [facility] [id number] [phone] Mar, [facility] [id number] [place] [address] [id number] Mar, Type 2 diabetes mellitus with diabetic polyneuropathy E11.42 [facility] [id number] [place] [address] [id number] February, Type 2 diabetes mellitus with diabetic polyneuropathy E11.42 [facility] [id number] [place] [address] [id number] February, Type 2 diabetes mellitus with diabetic polyneuropathy E11.42 [facility] [id number] [place] [address] [id number] February, Type 2 diabetes mellitus with diabetic polyneuropathy E11.42 and Hypercholesteremia E78.0 [facility] [id number] [place] [address] [id number] Jan, Type 2 diabetes mellitus with diabetic polyneuropathy E11.42 [facility] [address] [phone] Jan, Type 2 diabetes mellitus with diabetic [...] hospital for several days. 1999 Hospitalization History [facility] discharge dx PAD,CAD, and SVT. Pt has f/u scheduled with 06/0205/31/2016 Hospitalization History PSVT, Hypotension, CAD-[facility] 03/13/18
--- OUTSIDE RECORDS SUMMARY | 2019-03-03 11:21 | XMS REPORT ---
Author Author ESTRELLITA PANDYA Organization [facility] Address [address] [place] [address] Care Team Providers Care Cat Dog Or Other Pet Groomer Name Role Phone ESTRELLITA PANDYA Unavailable PROBLEMS Type Condition ICD9-CM Code TMR91-RV Code Onset Dates Condition Status SNOMED Code Problem Hypertension, unspecified type I10 Active 47891527 Problem Chronic GERD K21.9 Active 763375876 Problem PAD (peripheral artery disease) I73.9 Active 188802898 Problem 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 04499303 Problem PSVT (paroxysmal supraventricular tachycardia) I47.1 Active 72487829 Problem Chronic obstructive pulmonary disease, unspecified COPD type J44.9 Active 36249051 Problem Hematochezia K92.1 Active 792890357461300 Problem Chronic ischemic heart disease I25.9 Active 304195004 Problem Mixed hyperlipidemia E78.2 Active 412641613 Problem Degenerative disc disease, lumbar M51.36 Active 25273565 ALLERGIES Substance Reaction Event Type Date Status Penicillin V Potassium rash Drug Allergy February, Active ENCOUNTERS Encounter Location Date Diagnosis [place] [id number] [place] [address] 80566- 5583 May, [place] [address] [place] [id number] [place] [address] 29725- 3817 May, Type 2 diabetes mellitus with diabetic polyneuropathy E11.42 ; PSVT (paroxysmal supraventricular tachycardia) I47.1 ; PAD (peripheral artery disease) I73.9 ; Chronic obstructive pulmonary disease, unspecified COPD type J44.9 and Skin sore L98.9 [place] [address] [place] [address] 45849- 4145 Apr, [place] [address] [place] [id number] [place] [address] 81819- 4634 Apr, Type 2 diabetes mellitus 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 and Chronic GERD K21.9 [facility] [address] [place] [id number] [place] [address] 60245- 3847 Mar, [facility] [address] [place] [address] [id number] [place] [address] 21797- 3016 Mar, [facility] [address] [place] [id number] [place] [address] 59554- 1599 Mar, [facility] [address] [place] [id number] [place] [address] 40262- 6323 Mar, Hypercholesteremia E78.0 ; Chronic obstructive pulmonary disease, unspecified COPD type J44.9 and PSVT (paroxysmal supraventricular tachycardia) I47.1 [facility] [address] [place] [id number] [place] [address] 20717- 3909 Mar, Type 2 diabetes mellitus with diabetic polyneuropathy E11.42 [facility] [address] [place] [id number] [place] [address] 92623- 6913 February, [facility] [address] [place] [id number] [place] [address] 80176- 8223 February, PSVT (paroxysmal supraventricular tachycardia) I47.1 [facility] [address] [place] [id number] [place] [address] 42993- 0095 February, COPD exacerbation J44.1 [facility] [address] [place] [id number] [place] [address] 21609- 0157 February, COPD exacerbation J44.1 [facility] [address] [address] 9[address] February, [facility] [address] [place] [id number] [place] [address] 86689- 5171 February, [facility] [address] [place] [id number] [place] [address] 95141- 2638 February, Type 2 diabetes mellitus with diabetic polyneuropathy E11.42 and Chronic obstructive pulmonary disease, unspecified COPD type J44.9 [place] [address] [address] 3137 February, [place] [address] [place] [id number] [place] [address] 11470- 3260 Jan, Type 2 diabetes mellitus 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 and Chronic GERD K21.9 [place] [address] [place] [id number] [place] [address] 03310- 2166 Jan, Type 2 diabetes mellitus with diabetic polyneuropathy E11.42 ; Mixed hyperlipidemia E78.2 ; Chronic obstructive pulmonary disease, unspecified COPD type J44.9 ; Hematochezia K92.1 and Degenerative disc disease, lumbar M51.36 [place] [id number] [place] [address] [id number] Jan, Chronic ischemic heart disease I25.9 [place] [address] [place] [id number] [place] [address] 11215- 0913 Jan, PAD (peripheral artery disease) I73.9 and Type 2 diabetes mellitus with diabetic polyneuropathy E11.42 [place] [address] [place] [id number] [place] [address] 03831- 7558 Dec, Type 2 diabetes mellitus with diabetic polyneuropathy E11.42 ; Hematochezia K92.1 ; PAD (peripheral artery disease) I73.9 ; Chronic ischemic heart disease I25.9 and Weakness of left lower extremity R29.898 [place] [address] [place] [id number] [place] [address] 39965- 7427 Dec, Type 2 diabetes mellitus with diabetic polyneuropathy E11.42 [place] [address] [place] [id number] [place] [address] 29217- 3574 Nov, Type 2 diabetes mellitus with diabetic polyneuropathy E11.42 and PAD (peripheral artery disease) I73.9 [place] [address] [place] [id number] [place] [address] 82971- 3290 Oct, Type 2 diabetes mellitus with diabetic polyneuropathy E11.42 [place] [id number] [place] [address] [id number] Oct, Type 2 diabetes mellitus with diabetic polyneuropathy E11.42 [facility] [address] [place] [id number] [place] [address] 56086- 5054 Oct, Type 2 diabetes mellitus with diabetic polyneuropathy E11.42 and Chronic GERD K21.9 [facility] [address] [place] [id number] [place] [address] 29200- 4861 Oct, Chronic GERD K21.9 [facility] [address] [place] [id number] [place] [address] 97229- 8741 Sep, [facility] [address] [place] [id number] [place] [address] 07772- 7149 Sep, [facility] [address] [place] [id number] [place] [address] 09343- 2387 Sep, Type 2 diabetes mellitus with diabetic polyneuropathy E11.42 [facility] [address] [place] [id number] [place] [address] 29612- 7885 Aug, [facility] [address] [place] [id number] [place] [address] 55620- 9034 Aug, [facility] [address] [place] [id number] [place] [address] 09850- 1892 Aug, [facility] [address] [place] [id number] [place] [address] 01365- 3091 Aug, Type 2 diabetes mellitus with diabetic polyneuropathy E11.42 [facility] [address] [place] [id number] [place] [address] 78760- 0020 Jul, Type 2 diabetes mellitus with diabetic polyneuropathy E11.42 ; Chronic GERD K21.9 ; Hypercholesteremia E78.0 and PAD (peripheral artery disease) I73.9 [facility] [address] [place] [id number] [place] [address] 13341- 1551 Jul, Type 2 diabetes mellitus with diabetic polyneuropathy E11.42 [facility] [address] [place] [id number] [place] [address] 12505- 1308 Jul, [facility] [address] [id number] [id number] Jul, [facility] [address] [place] [id number] [place] [address] 328405- 6206 Jul, Type 2 diabetes mellitus with diabetic polyneuropathy E11.42 [facility] [address] [address]- 4726 Jul, [facility] [address] [place] [address] [id number] Jul, Mixed hyperlipidemia E78.2 ; Hypertension, unspecified type I10 ; PAD ( peripheral artery disease) I73.9 and Chronic ischemic heart disease I25.9 [facility] [address] [place] [id number] [place] [address] 63255- 3959 Jun, Type 2 diabetes mellitus with diabetic polyneuropathy E11.42 [place] [address] [place] [id number] [place] [address] 18168- 8144 Jun, Type 2 diabetes mellitus with diabetic polyneuropathy E11.42 [facility] [address] [id number] Jun, [facility] [address] [place] [address] 47191- 9857 Jun, Type 2 diabetes mellitus with diabetic polyneuropathy E11.42 ; PAD (peripheral artery disease) I73.9 ; Hypercholesteremia E78.0 and Hypertension, unspecified type I10 [facility] [address] [id number] Jun, Type 2 diabetes mellitus with diabetic polyneuropathy E11.42 [facility] [address] [address]- 6606 May, [facility] [address] [place] [id number] [place] [address] 60691- 3879 May, [facility] [address] [id number] Apr, Abscess L02.91 [facility] [address] [place] [address] [id number] Apr, [facility] [address] [id number] [place] [id number] Apr, Dental caries K02.9 and Dental examination Z01.20 [facility] [address] [id number] [place] [id number] Apr, Type 2 diabetes mellitus with diabetic polyneuropathy E11.[address] [facility] [address] [id number] [place] [id number] Mar, Type 2 diabetes mellitus with diabetic polyneuropathy E11.[address] [facility] [address] [id number] [place] [id number] Mar, Abscess L02.91 and Type 2 diabetes mellitus with diabetic polyneuropathy E11.[address] [facility] [address] [id number] [place] [id number] February, Abscess L02.[address] [facility] [address] [id number] [place] [id number] Jan, [facility] [address] [id number] [place] [id number] Jan, Type 2 diabetes mellitus with diabetic polyneuropathy E11.42 [facility] [address] [id number] [place] [id number] Jan, [facility] [address] [id number] [place] [id number] Jan, Abscess L02.[address] [facility] [address] [id number] [place] [id number] Dec, Type 2 diabetes mellitus with diabetic polyneuropathy E11.42 [facility] [address] [id number] [place] [id number] Nov, Type 2 diabetes mellitus with diabetic polyneuropathy E11.[address] [facility] [address] [id number] [place] [id number] Oct, Type 2 diabetes mellitus with diabetic polyneuropathy E11.42 [facility] [address] [id number] [place] [id number] Oct, Type 2 diabetes mellitus with diabetic polyneuropathy E11.[address] [facility] [address] [id number] [id number] Oct, Type 2 diabetes mellitus 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 and Hydrocele , unspecified hydrocele type N43.3 [facility] [id number] [place] [address] [id number] Sep, Enlarged testicle N50.89 [facility] [id number] [place] [address] [id number] Sep, Enlarged testicle N50.89 [facility] [address] [id number] [place] [address] [id number] Sep, Type 2 diabetes mellitus with diabetic polyneuropathy E11.42 [facility] [id number] [place] [address] [id number] Sep, [facility] [address] [id number] [place] [address] [id number] Aug, Dyspepsia R10.13 and Type 2 diabetes mellitus with diabetic polyneuropathy E11.42 [facility] [id number] [place] [address] [id number] Jul, [facility] [address] [place] [id number] [place] [address] [id number] Jul, Type 2 diabetes mellitus with diabetic polyneuropathy E11.42 and Dyspepsia R10.13 [facility] [id number] [place] [address] [id number] Jun, [facility] [id number] [place] [address] [id number] Jun, [facility] [address] [place] [id number] [place] [address] [id number] Jun, Type 2 diabetes mellitus with diabetic polyneuropathy E11.42 and Boils L02.92 [facility] [id number] [place] [address] [id number] May, Type 2 diabetes mellitus with diabetic polyneuropathy E11.42 [facility] [id number] [place] [address] [id number] May, Type 2 diabetes mellitus with diabetic polyneuropathy E11.42 and Bloating R14.0 [facility] [address] [id number] [id number] Apr, [facility] [id number] [phone] Apr, [facility] [address] [id number] [place] [id number] Apr, Type 2 diabetes mellitus with diabetic polyneuropathy E11.42 [facility] [place] [address] [id number] [place] [id number] Mar, [facility] [id number] [place] [address] [id number] Mar, Type 2 diabetes mellitus with diabetic polyneuropathy E11.42 [facility] [place] [id number] [place] [address] [id number] February, Type 2 diabetes mellitus with diabetic polyneuropathy E11.42 [facility] [place] [id number] [place] [id number] February, Type 2 diabetes mellitus with diabetic polyneuropathy E11.42 [facility] [place] [id number] [place] [id number] February, Type 2 diabetes mellitus with diabetic polyneuropathy E11.42 and Hypercholesteremia E78.0 [facility] [place] [id number] [place] [address] [id number] Jan, Type 2 diabetes mellitus with diabetic polyneuropathy E11.42 [facility] [place] [id number] [place] [id number] Jan, Type 2 diabetes mellitus with diabetic polyneuropathy E11.42 IMMUNIZATIONS No Known Immunizations SOCIAL HISTORY Never Assessed REASON FOR VISIT COPD, PT reports that since his last visit 02/09/2018 he started having some sinus congestion which then worsened. PT notes he has some nausea with his chest congestion, also he has been having diarrhea the last few days as well as loss of appetite. PT feels his advair prescribed at his last appointment has not been helping-Israel GARCÍA , PT needs refills PLAN OF CARE Activity Details Follow Up prn Reason: VITAL SIGNS Height 66.0 in 2018-03-05 Weight 190.5 lbs 2018-03-05 Temperature 98.0 degrees Fahrenheit 2018-03-05 Heart Rate 90 bpm 2018-03-05 Respiratory Rate 18 2018-03-05 Oximetry on room air:98 % 2018-03-05 BMI 30.74 kg/m2 2018-03-05 Blood pressure systolic 140 mmHg 2018-03-05 Blood pressure diastolic 78 mmHg 2018-03-05 MEDICATIONS Medication Instructions Dosage Frequency Start Date End Date Duration Status Lyrica 50 mg Orally Twice a day 1 capsule 12h Oct, 30 days Active BD Pen Needle Nancy U/F BD PEN NEEDLE NANCY subcutaneous 2 times a day as directed 12h February, Active Pantoprazole Sodium 40 MG Orally Once a day 1 tablet 24h 15 May, 2017 90 days Active Lantus 100 UNIT/ML Subcutaneous 2 times a day 28 units 12h 14 Mar, 2016 90 days Active Crestor 40 mg Orally Once a day 1 tablet 24h Jun, 90 days Active Tradjenta 5 mg Orally Once a day 1 tablet 24h Jan, 90 days Active Accu-Chek Britt test strips as directed 8h Jan, Active PredniSONE 20 MG Orally Once a day 2 tablet with food or milk 24h 05 days Active Accu-Chek Britt glucometer as directed Jan, Active Advair Diskus 250-50 MCG/DOSE Inhalation Twice a day 1 puff 12h Jan, 90 days Active Gabapentin 600 MG Orally Three times a day 1 capsule 8h Jan, 90 days Active Clopidogrel Bisulfate 75 MG Orally Once a day 1 tablet 24h 90 days Active BD Insulin Syringe 30G X 1/2 subcutaneously with insulin doses Use as directed Jun, Active Leg Cramp Relief Active Lisinopril 10 mg Orally Once a day 1 tablet 24h 90 days Active MetFORMIN HCl ER 500 mg Orally twice a day 2 tabs 12h 10 Jul, 2016 Active Doxycycline Hyclate 100 mg Orally every 12 hrs 1 capsule 12h February, February, 10 day(s) Active Metoprolol Succinate ER 25 MG Orally Once a day 1 tablet 24h Jun, 90 days Active Albuterol Sulfate (2.5 MG/3ML) 0.083% Inhalation 4 times a day for SOB or cough 3 ml February, Active RESULTS No Results PROCEDURES No [...] History colonoscopy, benign 2010 Surgical History EGD 2011 Surgical History Heart cath, abdominal aortagram, PTCA w/ 3 stents to the right coronary artery by [facility] 05/31/17 Hospitalization History ER Visit for increased heart rate and elevated blood sugar 08/2015 Hospitalization History Had tooth extracted and became septic, was in hospital for several days. 1999 Hospitalization History [facility] discharge dx PAD,CAD, and SVT. Pt has f/u scheduled with 06/0205/31/2016 Hospitalization History PSVT, Hypotension, CAD-[facility] 03/13/18
--- OUTSIDE RECORDS SUMMARY | 2019-03-03 11:21 | XMS REPORT ---
Author Author ESTRELLITA PANDYA Organization [facility] Address [address] 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1 Active 128762786313047 Problem Chronic ischemic heart disease I25.9 Active 182573181 Problem Mixed hyperlipidemia E78.2 Active 152663561 Problem Degenerative disc disease, lumbar M51.36 Active 92637917 ALLERGIES No Information ENCOUNTERS Encounter Location Date Diagnosis [facility] [id number] [place] [address] 41775- 6234 May, [facility] [id number] [place] [address] 37846- 5382 May, Type 2 diabetes mellitus with diabetic polyneuropathy E11.42 ; PSVT (paroxysmal supraventricular tachycardia) I47.1 ; PAD (peripheral artery disease) I73.9 ; Chronic obstructive pulmonary disease, unspecified COPD type J44.9 and Skin sore L98.9 [place] [facility] [id number] [place] [address] 38472- 1131 Apr, [facility] [id number] [place] [address] 29340- 2332 Apr, Type 2 diabetes mellitus with diabetic polyneuropathy E11.42 [address]ERD K21.9 [facility] [id number] [place] [address] 54118- 1462 Mar, [facility] [id number] [place] [address] 77239- 9685 Mar, [facility] [id number] [place] [address] 45416- 3919 Mar, [facility] [id number] [place] [address] 97795- 3822 Mar, Hypercholesteremia E78.0 ; Chronic obstructive pulmonary disease, unspecified COPD type J44.9 and PSVT (paroxysmal supraventricular tachycardia) I47.1 [facility] [id number] [place] [address] 61702- 5390 Mar, Type 2 diabetes mellitus with diabetic polyneuropathy E11.42 [facility] [id number] [place] [address] 84503- 7775 February, [facility] [id number] [place] [address] 41433- 0800 February, PSVT (paroxysmal supraventricular tachycardia) I47.1 [facility] [id number] [place] [address] 76729- 9751 February, COPD exacerbation J44.1 [facility] [id number] [place] [address] 26555- 7034 February, COPD exacerbation J44.1 [facility] [address] [place] [address] 25637- 3396 February, [facility] [id number] [place] [address] 68606- 1115 February, [facility] [id number] [place] [address] 39385- 8725 February, Type 2 diabetes mellitus with diabetic polyneuropathy E11.42 and Chronic obstructive pulmonary disease, unspecified COPD type J44.9 [facility] [id number] [place] [address] 53009- 5319 February, [facility] [id number] [place] [address] 62981- 1770 Jan, Type 2 diabetes mellitus with diabetic polyneuropathy E11.42 and Chronic GERD K21.9 [facility] [id number] [place] [address] 17058- 5263 Jan, Type 2 diabetes mellitus with diabetic polyneuropathy E11.42 ; Mixed hyperlipidemia E78.2 ; Chronic obstructive pulmonary disease, unspecified COPD type J44.9 ; Hematochezia K92.1 and Degenerative disc disease, lumbar M51.36 [address] [place] [address] [phone] Jan, Chronic ischemic heart disease I25.9 [facility] [id number] [place] [address] 74969- 5476 Jan, PAD (peripheral artery disease) I73.9 and Type 2 diabetes mellitus with diabetic polyneuropathy E11.42 [facility] [id number] [place] [address] 05813- 8960 Dec, Type 2 diabetes mellitus with diabetic polyneuropathy E11.42 ; Hematochezia K92.1 ; PAD (peripheral artery disease) I73.9 ; Chronic ischemic heart disease I25.9 and Weakness of left lower extremity R29.898 [facility] [id number] [address] Dec, Type 2 diabetes mellitus with diabetic polyneuropathy E11.42 [facility] [address] [place] [address] 06366- 9262 Nov, Type 2 diabetes mellitus with diabetic polyneuropathy E11.42 and PAD (peripheral artery disease) I73.9 [facility] [id number] [place] [address] 18872- 3183 Oct, Type 2 diabetes mellitus with diabetic polyneuropathy E11.42 [address] [id number] Oct, Type 2 diabetes mellitus with diabetic polyneuropathy E11.42 [facility] [address] [address] Oct, Type 2 diabetes mellitus with diabetic polyneuropathy E11.42 and Chronic GERD K21.9 [facility] [address] [place] [address] 7227 Oct, Chronic GERD K21.9 [facility] [id number] [place] [address] 63966- 4318 Sep, [facility] [id number] [place] [address] 35873- 6021 Sep, [facility] [id number] [place] [address] 26305- 1331 Sep, Type 2 diabetes mellitus with diabetic polyneuropathy E11.42 [facility] [id number] [place] [address] 59173- 9201 Aug, [facility] [id number] [place] [address] 25256- 4893 Aug, [facility] [address] [place] [address] 36765- 7315 Aug, [facility] [address] [place] [address] 15013- 6738 Aug, Type 2 diabetes mellitus with diabetic polyneuropathy E11.42 [facility] [address] [place] [address] 98847- 9834 Jul, Type 2 diabetes mellitus with diabetic polyneuropathy E11.42 ; Chronic GERD K21.9 ; Hypercholesteremia E78.0 and PAD (peripheral artery disease) I73.9 [facility] [id number] [place] [address] 23917- 0933 Jul, Type 2 diabetes mellitus with diabetic polyneuropathy E11.42 [facility] [address] [address] Jul, [place] [id number] [id number] Jul, [facility] [id number] [place] [address] 27861- 3931 Jul, Type 2 diabetes mellitus with diabetic polyneuropathy E11.42 [facility] [address] [place] [address]- 0336 Jul, [facility] [id number] [place] [address] [id number] Jul, Mixed hyperlipidemia E78.2 ; Hypertension, unspecified type I10 ; PAD ( peripheral artery disease) I73.9 and Chronic ischemic heart disease I25.9 [facility] [id number] [place] [address] 55459- 8177 Jun, Type 2 diabetes mellitus with diabetic polyneuropathy E11.42 [facility] [id number] [place] [address] 99896- 8094 Jun, Type 2 diabetes mellitus with diabetic polyneuropathy E11.42 [facility] [id number] [id number] Jun, [facility] [id number] [place] [address] 95393- 1532 Jun, Type 2 diabetes mellitus with diabetic polyneuropathy E11.42 ; PAD (peripheral artery disease) I73.9 ; Hypercholesteremia E78.0 and Hypertension, unspecified type I10 [facility] [id number] [place] [address] [id number] Jun, Type 2 diabetes mellitus with diabetic polyneuropathy E11.42 [facility] [address] [place] [address] 63464- 2794 May, [facility] [id number] [place] [address] 01253- 5187 May, [facility] [id number] [place] [id number] Apr, Abscess L02.91 [facility] [address] [id number] [place] [address] [id number] Apr, [facility] [address] [id number] [place] [id number] Apr, Dental caries K02.9 and Dental examination Z01.20 [facility] [address] [id number] [id number] Apr, Type 2 diabetes mellitus with diabetic polyneuropathy E11.[address] [facility] [address] [id number] [place] [id number] Mar, Type 2 diabetes mellitus with diabetic polyneuropathy E11.[address] [facility] [id number] [place] [id number] Mar, Abscess L02.91 and Type 2 diabetes mellitus with diabetic polyneuropathy E11.[address] [id number] [place] [id number] February, Abscess L02.[address] [id number] [place] [id number] Jan, [facility] [id number] [place] [address] [id number] Jan, Type 2 diabetes mellitus with diabetic polyneuropathy E11.[address] [facility] [id number] [place] [phone] Jan, [facility] [id number] [place] [address] [id number] Jan, Abscess L02.[address] [id number] [place] [id number] Dec, Type 2 diabetes mellitus with diabetic polyneuropathy E11.[address] [id number] [place] [id number] Nov, Type 2 diabetes mellitus with diabetic polyneuropathy E11.[address] [id number] [place] [id number] Oct, Type 2 diabetes mellitus with diabetic polyneuropathy E11.[address] [id number] [place] [id number] Oct, Type 2 diabetes mellitus with diabetic polyneuropathy E11.[id number] [place] [address] [id number] Oct, Type 2 diabetes mellitus with diabetic polyneuropathy E11.42 and Hydrocele , unspecified hydrocele type N43.3 [facility] [id number] [place] [address] [id number] Sep, Enlarged testicle N50.89 [facility] [id number] [place] [address] [id number] Sep, Enlarged testicle N50.89 [facility] [id number] [place] [address] [id number] Sep, Type 2 diabetes mellitus with diabetic polyneuropathy E11.42 [facility] [id number] [place] [address] [id number] Sep, [facility] [id number] [place] [address] [id number] Aug, Dyspepsia R10.13 and Type 2 diabetes mellitus with diabetic polyneuropathy E11.42 [facility] [id number] [place] [address] [id number] Jul, [facility] [id number] [place] [address] [id number] Jul, Type 2 diabetes mellitus with diabetic polyneuropathy E11.42 and Dyspepsia R10.13 [facility] [id number] [place] [address] [id number] Jun, [facility] [id number] [place] [address] [id number] Jun, [facility] [id number] [place] [address] [id number] Jun, Type 2 diabetes mellitus with diabetic polyneuropathy E11.42 and Boils L02.92 [facility] [id number] [place] [address] [id number] May, Type 2 diabetes mellitus with diabetic polyneuropathy E11.42 [facility] [id number] [place] [address] [id number] May, Type 2 diabetes mellitus with diabetic polyneuropathy E11.42 and Bloating R14.0 [facility] [id number] [place] [address] [id number] Apr, [facility] [address] [facility] [id number] [place] [phone] Apr, [facility] [id number] [place] [id number] Apr, Type 2 diabetes mellitus with diabetic polyneuropathy E11.42 [facility] [address] [facility] [id number] [place] [phone] Mar, [facility] [address] [place] [address] [id number] Mar, Type 2 diabetes mellitus with diabetic polyneuropathy E11.42 [facility] [address] [place] [address] [id number] February, Type 2 diabetes mellitus with diabetic polyneuropathy E11.42 [facility] [address] [id number] February, Type 2 diabetes mellitus with diabetic polyneuropathy E11.42 [address] [place] [address] [id number] February, Type 2 diabetes mellitus with diabetic polyneuropathy E11.42 and Hypercholesteremia E78.0 [facility] [address] [place] [address] [id number] Jan, Type 2 diabetes mellitus with diabetic polyneuropathy E11.42 [facility] [address] [id number] Jan, Type 2 diabetes mellitus with diabetic polyneuropathy E11.42 IMMUNIZATIONS No Known Immunizations SOCIAL HISTORY Never Assessed REASON FOR VISIT Phone triage/Hospital d/c PLAN OF CARE VITAL SIGNS MEDICATIONS Medication Instructions Dosage Frequency Start Date End Date Duration Status Doxycycline Hyclate 100 mg Orally every 12 hrs 1 capsule 12h February, February, 10 day(s) Not-Taking Advair Diskus 250-50 MCG/DOSE Inhalation Twice a day 1 puff 12h Jan, 90 days Not-Taking BD Pen Needle Nancy U/F BD PEN NEEDLE NANCY subcutaneous 2 times a day as directed 12h February, Not-Taking PredniSONE 20 MG Orally Once a day 2 tablet with food or milk 24h 05 days Not-Taking Gabapentin 600 MG Orally Three times a day 1 capsule 8h Jan, 90 days Active Acetaminophen Extra Strength 500 mg Orally every 4 hrs 3-4 tablet as needed 4h Active BD Insulin Syringe 30G X 1/2 subcutaneously with insulin doses Use as directed Jun, Not-Taking Tradjenta 5 mg Orally Once a day 1 tablet 24h Jan, 90 days Active Lantus 100 UNIT/ML Subcutaneous 2 times a day 28 units 12h 14 Mar, 2016 90 days Not-Taking Lyrica 50 mg Orally Twice a day 1 capsule 12h Oct, 30 days Active Accu-Chek Britt test strips as directed 8h Jan, Not-Taking Aspirin 81 81 MG Orally Once a day 1 tablet 24h Active Accu-Chek Britt glucometer as directed Jan, Not-Taking Pantoprazole Sodium 40 MG Orally Once a day 1 tablet 24h May, 90 days Active Metoprolol Succinate ER 25 MG Orally Once a day 1 tablet 24h Jun, 90 days Active Diltiazem CD 240 MG Orally Once a day 1 capsule 24h Active Albuterol Sulfate (2.5 MG/3ML) 0.083% Inhalation 4 times a day for SOB or cough 3 ml February, Not-Taking Lisinopril 10 mg Orally Once a day 1 tablet 24h 90 days Active MetFORMIN HCl ER 500 mg Orally twice a day 2 tabs 12h Jul, Active Clopidogrel Bisulfate 75 MG Orally Once a day 1 tablet 24h 90 days Active Crestor 40 mg Orally Once a day 1 tablet 24h Jun, 90 days Active RESULTS No Results PROCEDURES [...] stents to the right coronary artery by [facility] 05/31/17 Hospitalization History ER Visit for increased heart rate and elevated blood sugar 08/2015 Hospitalization History Had tooth extracted and became septic, was in hospital for several days. 1999 Hospitalization History [facility] discharge dx PAD,CAD, and SVT. Pt has f/u scheduled with 06/0205/31/2016 Hospitalization History PSVT, Hypotension, CAD-[facility] 03/13/18
--- OUTSIDE RECORDS SUMMARY | 2019-03-03 11:21 | XMS REPORT ---
Author Author ESTRELLITA PANDYA Organization [facility] Address [address] [place] [address] Care Team Providers Care Manager [place] Name Role Phone ESTRELLITA PANDYA Unavailable PROBLEMS Type Condition ICD9-CM Code HUM70-UD Code Onset Dates Condition Status SNOMED Code Problem Hypertension, unspecified type I10 Active 95643825 Problem Chronic GERD K21.9 Active 312383704 Problem PAD (peripheral artery disease) I73.9 Active 793279110 Problem 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 48313617 Problem PSVT (paroxysmal supraventricular tachycardia) I47.1 Active 64269652 Problem Chronic obstructive pulmonary disease, unspecified COPD type J44.9 Active 68997545 Problem Hematochezia K92.1 Active [id number] Problem Chronic ischemic heart disease I25.9 Active 547595497 Problem Mixed hyperlipidemia E78.2 Active 809006874 Problem Degenerative disc disease, lumbar M51.36 Active 52022807 ALLERGIES No Information ENCOUNTERS Encounter Location Date Diagnosis [place] [id number] [place] [address] 34829- 2551 May, [place] [id number] [place] [address] 12069- 7826 May, Type 2 diabetes mellitus with diabetic polyneuropathy E11.42 ; PSVT (paroxysmal supraventricular tachycardia) I47.1 ; PAD (peripheral artery disease) I73.9 ; Chronic obstructive pulmonary disease, unspecified COPD type J44.9 and Skin sore L98.9 [place] [id number] [place] [address] 94252- 6571 Apr, [place] [id number] [place] [address] 66516- 1200 Apr, Type 2 diabetes mellitus with diabetic polyneuropathy E11.42 and Chronic GERD K21.9 [facility] [id number] [place] [address] 07637- 0624 Mar, [facility] [id number] [place] [address] 59141- 4167 Mar, [facility] [id number] [place] [address] 57473- 4204 Mar, [facility] [id number] [place] [address] 31781- 9278 Mar, Hypercholesteremia E78.0 ; Chronic obstructive pulmonary disease, unspecified COPD type J44.9 and PSVT (paroxysmal supraventricular tachycardia) I47.1 [place] [id number] [place] [address] 99303- 8349 Mar, Type 2 diabetes mellitus with diabetic polyneuropathy E11.42 [place] [id number] [place] [address] 83122- 0879 February, [facility] [id number] [place] [address] 74555- 4769 February, PSVT (paroxysmal supraventricular tachycardia) I47.1 [facility] [id number] [place] [address] 01515- 8955 February, COPD exacerbation J44.1 [facility] [id number] [place] [address] 98362- 6854 February, COPD exacerbation J44.1 [facility] [id number] [place] [address] 47856- 2940 February, [facility] [id number] [place] [address] 23160- 6390 February, [facility] [id number] [place] [address] 00174- 2267 February, Type 2 diabetes mellitus with diabetic polyneuropathy E11.42 and Chronic obstructive pulmonary disease, unspecified COPD type J44.9 [facility] [id number] [place] [address] 84980- 7372 February, [place] [id number] [place] [address] 27187- 3965 Jan, Type 2 diabetes mellitus with diabetic polyneuropathy E11.42 and Chronic GERD K21.9 [place] [id number] [place] [address] 07075- 6548 Jan, Type 2 diabetes mellitus with diabetic polyneuropathy E11.42 ; Mixed hyperlipidemia E78.2 ; Chronic obstructive pulmonary disease, unspecified COPD type J44.9 ; Hematochezia K92.1 and Degenerative disc disease, lumbar M51.[address] [place] [address] [phone] Jan, Chronic ischemic heart disease I25.9 [place] [id number] [place] [address] 16375- 6874 Jan, PAD (peripheral artery disease) I73.9 and Type 2 diabetes mellitus with diabetic polyneuropathy E11.42 [place] [id number] [place] [address] 47923- 2963 Dec, Type 2 diabetes mellitus with diabetic polyneuropathy E11.42 ; Hematochezia K92.1 ; PAD (peripheral artery disease) I73.9 ; Chronic ischemic heart disease I25.9 and Weakness of left lower extremity R29.898 [place] [id number] [address]- 0774 Dec, Type 2 diabetes mellitus with diabetic polyneuropathy E11.42 [place] [id number] [place] [address] 89297- 3474 Nov, Type 2 diabetes mellitus with diabetic polyneuropathy E11.42 and PAD (peripheral artery disease) I73.9 [place] [id number] [place] [address] 58215- 0024 Oct, Type 2 diabetes mellitus with diabetic polyneuropathy E11.42 [address] [id number] Oct, Type 2 diabetes mellitus with diabetic polyneuropathy E11.42 [facility] [address] [address]- 3088 Oct, Type 2 diabetes mellitus with diabetic polyneuropathy E11.42 and Chronic GERD K21.9 [facility] [address] [address]- 3900 Oct, Chronic GERD K21.9 [facility] [id number] [place] [address] 28716- 1372 Sep, [facility] [id number] [place] [address] 78489- 0986 Sep, [facility] [id number] [place] [address] 78726- 4709 Sep, Type 2 diabetes mellitus with diabetic polyneuropathy E11.42 [facility] [id number] [place] [address] 32318- 5911 Aug, [facility] [id number] [place] [address] 53109- 9368 Aug, [facility] [id number] [place] [address] 68783- 6785 Aug, [facility] [address] [place] [address] 81871- 7328 Aug, Type 2 diabetes mellitus with diabetic polyneuropathy E11.42 [facility] [address] [place] [address] 06259- 8402 Jul, Type 2 diabetes mellitus with diabetic polyneuropathy E11.42 ; Chronic GERD K21.9 ; Hypercholesteremia E78.0 and PAD (peripheral artery disease) I73.9 [facility] [id number] [place] [address] 91448- 2066 Jul, Type 2 diabetes mellitus with diabetic polyneuropathy E11.42 [facility] [address] [address]- 5476 Jul, [place] [id number] [id number] Jul, [facility] [id number] [place] [address] 64117- 9585 Jul, Type 2 diabetes mellitus with diabetic polyneuropathy E11.42 [facility] [address] [address]- 0596 Jul, [facility] [id number] [place] [address] [phone] Jul, Mixed hyperlipidemia E78.2 ; Hypertension, unspecified type I10 ; PAD ( peripheral artery disease) I73.9 and Chronic ischemic heart disease I25.9 [facility] [id number] [place] [address] 36694- 8055 Jun, Type 2 diabetes mellitus with diabetic polyneuropathy E11.42 [facility] [id number] [place] [address] 34041- 1041 Jun, Type 2 diabetes mellitus with diabetic polyneuropathy E11.42 [facility] [id number] [id number] Jun, [facility] [id number] [place] [address] 88797- 1875 Jun, Type 2 diabetes mellitus with diabetic polyneuropathy E11.42 ; PAD (peripheral artery disease) I73.9 ; Hypercholesteremia E78.0 and Hypertension, unspecified type I10 [facility] [id number] [place] [address] [phone] Jun, Type 2 diabetes mellitus with diabetic polyneuropathy E11.42 [facility] [id number] [place] [address] 92920- 5271 May, [facility] [id number] [place] [address] 40999- 3220 May, [facility] [id number] [phone] Apr, Abscess L02.91 [facility] [id number] [place] [address] [id number] Apr, [facility] [address] [id number] [place] [phone] Apr, Dental caries K02.9 and Dental examination Z01.[address] [facility] [address] [id number] [place] [phone] Apr, Type 2 diabetes mellitus with diabetic polyneuropathy E11.[address] [facility] [address] [id number] [place] [phone] Mar, Type 2 diabetes mellitus with diabetic polyneuropathy E11.[address] [facility] [address] [id number] [place] [id number] Mar, Abscess L02.91 and Type 2 diabetes mellitus with diabetic polyneuropathy E11.[address] [facility] [address] [id number] [place] [id number] February, Abscess L02.[address] [id number] [place] [id number] Jan, [facility] [id number] [place] [address] [id number] Jan, Type 2 diabetes mellitus with diabetic polyneuropathy E11.[address] [facility] [id number] [place] [id number] Jan, [facility] [id number] [place] [address] [id number] Jan, Abscess L02.[address] [id number] [place] [phone] Dec, Type 2 diabetes mellitus with diabetic polyneuropathy E11.[address] [id number] [place] [phone] Nov, Type 2 diabetes mellitus with diabetic polyneuropathy E11.[address] [id number] [place] [phone] Oct, Type 2 diabetes mellitus with diabetic polyneuropathy E11.[address] [id number] [place] [phone] Oct, Type 2 diabetes mellitus with diabetic polyneuropathy E11.[id number] [place] [address] [phone] Oct, Type 2 diabetes mellitus with diabetic polyneuropathy E11.42 and Hydrocele , unspecified hydrocele type N43.3 [facility] [id number] [place] [address] [phone] Sep, Enlarged testicle N50.89 [facility] [id number] [place] [address] [id number] Sep, Enlarged testicle N50.89 [facility] [id number] [place] [address] [id number] Sep, Type 2 diabetes mellitus with diabetic polyneuropathy E11.42 [facility] [id number] [place] [address] [id number] Sep, [facility] [id number] [place] [address] [phone] Aug, Dyspepsia R10.13 and Type 2 diabetes mellitus with diabetic polyneuropathy E11.42 [facility] [id number] [place] [address] [id number] Jul, [facility] [id number] [place] [address] [id number] Jul, Type 2 diabetes mellitus with diabetic polyneuropathy E11.42 and Dyspepsia R10.13 [facility] [id number] [place] [address] [id number] Jun, [facility] [id number] [place] [address] [id number] Jun, [facility] [id number] [place] [address] [id number] Jun, Type 2 diabetes mellitus with diabetic polyneuropathy E11.42 and Boils L02.92 [facility] [id number] [place] [address] [id number] May, Type 2 diabetes mellitus with diabetic polyneuropathy E11.42 [facility] [id number] [place] [address] [id number] May, Type 2 diabetes mellitus with diabetic polyneuropathy E11.42 and Bloating R14.0 [facility] [id number] [place] [address] [id number] Apr, [facility] ANSELMO [address] [facility] [address] [id number] [place] [id number] Apr, [facility] [id number] [place] [phone] Apr, Type 2 diabetes mellitus with diabetic polyneuropathy E11.42 [facility] [address] [facility] [id number] [place] [id number] Mar, [facility] [id number] [place] [address] [id number] Mar, Type 2 diabetes mellitus with diabetic polyneuropathy E11.42 [facility] [id number] [place] [address] [id number] February, Type 2 diabetes mellitus with diabetic polyneuropathy E11.42 [facility] [id number] [place] [address] [id number] February, Type 2 diabetes mellitus with diabetic polyneuropathy E11.42 [facility] [address] [place] [address] [id number] February, Type 2 diabetes mellitus with diabetic polyneuropathy E11.42 and Hypercholesteremia E78.0 [facility] [address] [place] [address] [id number] Jan, Type 2 diabetes mellitus with diabetic polyneuropathy E11.42 [facility] [address] [id number] Jan, Type 2 diabetes mellitus with diabetic polyneuropathy E11.42 IMMUNIZATIONS No Known Immunizations SOCIAL HISTORY Never Assessed REASON FOR VISIT 6 mo DM ed f/u PLAN OF CARE VITAL SIGNS MEDICATIONS [...] hospital for several days. 1999 Hospitalization History [facility] discharge dx PAD,CAD, and SVT. Pt has f/u scheduled with 06/0205/31/2016 Hospitalization History PSVT, Hypotension, CAD-[facility] 03/13/18
--- OUTSIDE RECORDS SUMMARY | 2019-03-03 11:21 | XMS REPORT ---
Author Author ESTRELLITA PANDYA Organization [facility] Address [address] [place] [address] Care Team Providers Care Florist Designer Name Role Phone ESTRELLITA PANDYA Unavailable PROBLEMS Type Condition ICD9-CM Code ZRF65-JN Code Onset Dates Condition Status SNOMED Code Problem Hypertension, unspecified type I10 Active 55619579 Problem Chronic GERD K21.9 Active 778309748 Problem PAD (peripheral artery disease) I73.9 Active 428473249 Problem 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 47911205 Problem PSVT (paroxysmal supraventricular tachycardia) I47.1 Active 91425507 Problem Chronic obstructive pulmonary disease, unspecified COPD type J44.9 Active 74978984 Problem Hematochezia K92.1 Active [id number] Problem Chronic ischemic heart disease I25.9 Active 976629116 Problem Mixed hyperlipidemia E78.2 Active 835930054 Problem Degenerative disc disease, lumbar M51.36 Active 66384453 ALLERGIES No Information ENCOUNTERS Encounter Location Date Diagnosis [place] [id number] [place] [address] 76102- 2019 May, [place] [id number] [place] [address] 75394- 4878 May, Type 2 diabetes mellitus with diabetic polyneuropathy E11.42 ; PSVT (paroxysmal supraventricular tachycardia) I47.1 ; PAD (peripheral artery disease) I73.9 ; Chronic obstructive pulmonary disease, unspecified COPD type J44.9 and Skin sore L98.9 [place] [id number] [place] [address] 84649- 3352 Apr, [place] [id number] [place] [address] 32989- 2302 Apr, Type 2 diabetes mellitus with diabetic polyneuropathy E11.42 and Chronic GERD K21.9 [facility] [id number] [place] [address] 79731- 8128 Mar, [facility] [id number] [place] [address] 90600- 7121 Mar, [facility] [id number] [place] [address] 52384- 6404 Mar, [facility] [id number] [place] [address] 70809- 9223 Mar, Hypercholesteremia E78.0 ; Chronic obstructive pulmonary disease, unspecified COPD type J44.9 and PSVT (paroxysmal supraventricular tachycardia) I47.1 [place] [id number] [place] [address] 58184- 3050 Mar, Type 2 diabetes mellitus with diabetic polyneuropathy E11.42 [place] [id number] [place] [address] 14240- 1105 February, [facility] [id number] [place] [address] 19988- 5584 February, PSVT (paroxysmal supraventricular tachycardia) I47.1 [facility] [id number] [place] [address] 29563- 1951 February, COPD exacerbation J44.1 [facility] [id number] [place] [address] 14955- 7631 February, COPD exacerbation J44.1 [facility] [address] [place] [address] 23017- 2060 February, [facility] [id number] [place] [address] 23018- 0480 February, [facility] [id number] [place] [address] 11314- 2900 February, Type 2 diabetes mellitus with diabetic polyneuropathy E11.42 and Chronic obstructive pulmonary disease, unspecified COPD type J44.9 [facility] [id number] [place] [address] 87814- 4469 February, [place] [id number] [place] [address] 52720- 6318 Jan, Type 2 diabetes mellitus with diabetic polyneuropathy E11.42 and Chronic GERD K21.9 [place] [id number] [place] [address] 16216- 9538 Jan, Type 2 diabetes mellitus with diabetic polyneuropathy E11.42 ; Mixed hyperlipidemia E78.2 ; Chronic obstructive pulmonary disease, unspecified COPD type J44.9 ; Hematochezia K92.1 and Degenerative disc disease, lumbar M51.36 [id number] [place] [address] [phone] Jan, Chronic ischemic heart disease I25.9 [place] [id number] [place] [address] 26424- 9307 Jan, PAD (peripheral artery disease) I73.9 and Type 2 diabetes mellitus with diabetic polyneuropathy E11.42 [place] [id number] [place] [address] 09659- 5819 Dec, Type 2 diabetes mellitus with diabetic polyneuropathy E11.42 ; Hematochezia K92.1 ; PAD (peripheral artery disease) I73.9 ; Chronic ischemic heart disease I25.9 and Weakness of left lower extremity R29.898 [place] [id number] [address]- 9430 Dec, Type 2 diabetes mellitus with diabetic polyneuropathy E11.42 [place] [address] [place] [address] 50227- 3480 Nov, Type 2 diabetes mellitus with diabetic polyneuropathy E11.42 and PAD (peripheral artery disease) I73.9 [place] [id number] [place] [address] 37866- 9116 Oct, Type 2 diabetes mellitus with diabetic polyneuropathy E11.42 [address] [id number] Oct, Type 2 diabetes mellitus with diabetic polyneuropathy E11.42 [facility] [address] [address]- 4346 Oct, Type 2 diabetes mellitus with diabetic polyneuropathy E11.42 and Chronic GERD K21.9 [facility] [address] [place] [address]- 6177 Oct, Chronic GERD K21.9 [facility] [id number] [place] [address] 94627- 2283 Sep, [facility] [id number] [place] [address] 49922- 0058 Sep, [facility] [id number] [place] [address] 77941- 6718 Sep, Type 2 diabetes mellitus with diabetic polyneuropathy E11.42 [facility] [id number] [place] [address] 58857- 8418 Aug, [facility] [id number] [place] [address] 97002- 7298 Aug, [facility] [address] [place] [address] 59332- 8713 Aug, [facility] [address] [place] [address] 93749- 9177 Aug, Type 2 diabetes mellitus with diabetic polyneuropathy E11.42 [facility] [address] [place] [address] 34375- 6670 Jul, Type 2 diabetes mellitus with diabetic polyneuropathy E11.42 ; Chronic GERD K21.9 ; Hypercholesteremia E78.0 and PAD (peripheral artery disease) I73.9 [facility] [id number] [place] [address] 37636- 7979 Jul, Type 2 diabetes mellitus with diabetic polyneuropathy E11.42 [facility] [address] [place] [address]- 8733 Jul, [place] [id number] [id number] Jul, [facility] [id number] [place] [address] 21717- 2490 Jul, Type 2 diabetes mellitus with diabetic polyneuropathy E11.42 [facility] [address] [place] [address]- 1026 Jul, [facility] [id number] [place] [address] [id number] Jul, Mixed hyperlipidemia E78.2 ; Hypertension, unspecified type I10 ; PAD ( peripheral artery disease) I73.9 and Chronic ischemic heart disease I25.9 [facility] [id number] [place] [address] 05203- 4290 Jun, Type 2 diabetes mellitus with diabetic polyneuropathy E11.42 [facility] [id number] [place] [address] 53263- 7106 Jun, Type 2 diabetes mellitus with diabetic polyneuropathy E11.42 [facility] [id number] [phone] Jun, [facility] [id number] [place] [address] 46845- 8499 Jun, Type 2 diabetes mellitus with diabetic polyneuropathy E11.42 ; PAD (peripheral artery disease) I73.9 ; Hypercholesteremia E78.0 and Hypertension, unspecified type I10 [facility] [id number] [place] [address] [phone] Jun, Type 2 diabetes mellitus with diabetic polyneuropathy E11.42 [facility] [address] [place] [address] 19131- 6566 May, [facility] [id number] [place] [address] 60908- 9420 May, [facility] [id number] [phone] Apr, Abscess L02.91 [facility] [id number] [place] [address] [id number] Apr, [facility] [address] [id number] [place] [id number] Apr, Dental caries K02.9 and Dental examination Z01.[address] [facility] [address] [id number] [phone] Apr, Type 2 diabetes mellitus with diabetic polyneuropathy E11.[address] [facility] [address] [id number] [place] [phone] Mar, Type 2 diabetes mellitus with diabetic polyneuropathy E11.[address] [id number] [place] [phone] Mar, Abscess L02.91 and Type 2 diabetes mellitus with diabetic polyneuropathy E11.[address] [id number] [place] [phone] February, Abscess L02.[address] [id number] [place] [phone] Jan, [facility] [id number] [place] [address] [id number] Jan, Type 2 diabetes mellitus with diabetic polyneuropathy E11.[address] [id number] [place] [phone] Jan, [facility] [id number] [place] [address] [id number] Jan, Abscess L02.[address] [id number] [place] [phone] Dec, Type 2 diabetes mellitus with diabetic polyneuropathy E11.[address] [id number] [phone] Nov, Type 2 diabetes mellitus with diabetic polyneuropathy E11.[address] [id number] [place] [phone] Oct, Type 2 diabetes mellitus with diabetic polyneuropathy E11.[address] [id number] [place] [id number] Oct, Type 2 diabetes mellitus with diabetic polyneuropathy E11.[id number] [place] [address] [id number] Oct, Type 2 diabetes mellitus with diabetic polyneuropathy E11.42 and Hydrocele , unspecified hydrocele type N43.3 [facility] [id number] [place] [address] [id number] Sep, Enlarged testicle N50.89 [facility] [id number] [place] [address] [id number] Sep, Enlarged testicle N50.89 [facility] [id number] [place] [address] [id number] Sep, Type 2 diabetes mellitus with diabetic polyneuropathy E11.42 [facility] [id number] [place] [address] [id number] Sep, [facility] [id number] [place] [address] [id number] Aug, Dyspepsia R10.13 and Type 2 diabetes mellitus with diabetic polyneuropathy E11.42 [facility] [id number] [place] [address] [id number] Jul, [facility] [id number] [place] [address] [id number] Jul, Type 2 diabetes mellitus with diabetic polyneuropathy E11.42 and Dyspepsia R10.13 [facility] [id number] [place] [address] [id number] Jun, [facility] [id number] [place] [address] [id number] Jun, [facility] [id number] [place] [address] [id number] Jun, Type 2 diabetes mellitus with diabetic polyneuropathy E11.42 and Boils L02.92 [facility] [id number] [place] [address] [id number] May, Type 2 diabetes mellitus with diabetic polyneuropathy E11.42 [facility] [id number] [place] [address] [id number] May, Type 2 diabetes mellitus with diabetic polyneuropathy E11.42 and Bloating R14.0 [facility] [id number] [place] [address] [id number] Apr, [facility] [address] [id number] [place] [phone] Apr, [facility] [address] [id number] Apr, Type 2 diabetes mellitus with diabetic polyneuropathy E11.42 [facility] [address] [id number] Mar, [facility] [id number] [place] [address] [id number] Mar, Type 2 diabetes mellitus with diabetic polyneuropathy E11.42 [facility] [address] [place] [address] [id number] February, Type 2 diabetes mellitus with diabetic polyneuropathy E11.42 [facility] [id number] [place] [address] [id number] February, Type 2 diabetes mellitus with diabetic polyneuropathy E11.42 [address] [place] [address] [id number] February, Type 2 diabetes mellitus with diabetic polyneuropathy E11.42 and Hypercholesteremia E78.0 [facility] [address] [place] [address] [id number] Jan, Type 2 diabetes mellitus with diabetic polyneuropathy E11.42 [address] [place] [address] [id number] Jan, Type 2 diabetes mellitus with diabetic polyneuropathy E11.42 IMMUNIZATIONS No Known Immunizations SOCIAL HISTORY Never Assessed REASON FOR VISIT Repository Medication PLAN OF CARE VITAL SIGNS MEDICATIONS Medication Instructions Dosage Frequency Start Date End Date Duration Status Albuterol Sulfate (2.5 MG/3ML) 0.083% Inhalation 4 [...] with 06/0205/31/2016 Hospitalization History PSVT, Hypotension, CAD[facility] 03/13/18
--- OUTSIDE RECORDS SUMMARY | 2019-03-03 11:22 | XMS REPORT ---
Author Author ESTRELLITA PANDYA Organization [facility] Address [address] [place] [address] Care Team Providers [employer] Name Role Phone ESTRELLITA PANDYA Unavailable PROBLEMS Type Condition ICD9-CM Code VKE43-FJ Code Onset Dates Condition Status SNOMED Code Problem Hypertension, unspecified type I10 Active 98577439 Problem Chronic GERD K21.9 Active 499553295 Problem PAD (peripheral artery disease) I73.9 Active 951956521 Problem 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 20436218 Problem PSVT (paroxysmal supraventricular tachycardia) I47.1 Active 17299421 Problem Chronic obstructive pulmonary disease, unspecified COPD type J44.9 Active 85039848 Problem Hematochezia K92.1 Active [id number] Problem Chronic ischemic heart disease I25.9 Active 424800676 Problem Mixed hyperlipidemia E78.2 Active 578272615 Problem Degenerative disc disease, lumbar M51.36 Active 41857564 ALLERGIES No Information ENCOUNTERS Encounter Location Date Diagnosis [facility] [facility] [id number] [place] [address] 84937- 9616 May, [facility] [id number] [place] [address] 88448- 9355 May, Type 2 diabetes mellitus with diabetic polyneuropathy E11.42 ; PSVT (paroxysmal supraventricular tachycardia) I47.1 ; PAD (peripheral artery disease) I73.9 ; Chronic obstructive pulmonary disease, unspecified COPD type J44.9 and Skin sore L98.9 [place] [id number] [place] [address] 56708- 3117 Apr, [facility] [id number] [place] [address] 05782- 9604 Apr, Type 2 diabetes mellitus with diabetic polyneuropathy E11.42 and Chronic GERD K21.9 [facility] [id number] [place] [address] 57547- 2349 Mar, [facility] [id number] [place] [address] 29883- 2506 Mar, [facility] [id number] [place] [address] 04974- 9115 Mar, [facility] [id number] [place] [address] 94596- 2866 Mar, Hypercholesteremia E78.0 ; Chronic obstructive pulmonary disease, unspecified COPD type J44.9 and PSVT (paroxysmal supraventricular tachycardia) I47.1 [facility] [id number] [place] [address] 08390- 4161 Mar, Type 2 diabetes mellitus with diabetic polyneuropathy E11.42 [facility] [id number] [place] [address] 58763- 9958 February, [facility] [id number] [place] [address] 16139- 3316 February, PSVT (paroxysmal supraventricular tachycardia) I47.1 [facility] [id number] [place] [address] 40799- 2422 February, COPD exacerbation J44.1 [facility] [id number] [place] [address] 09477- 5806 February, COPD exacerbation J44.1 [facility] [id number] [place] [address] 70852- 6923 February, [facility] [id number] [place] [address] 39668- 8733 February, [facility] [id number] [place] [address] 51991- 3864 February, Type 2 diabetes mellitus with diabetic polyneuropathy E11.42 and Chronic obstructive pulmonary disease, unspecified COPD type J44.9 [facility] [id number] [place] [address] 94850- 0284 February, [facility] [facility] [id number] [place] [address] 34673- 7076 Jan, Type 2 diabetes mellitus with diabetic polyneuropathy E11.42 and Chronic GERD K21.9 [facility] [id number] [place] [address] 38883- 7914 Jan, Type 2 diabetes mellitus with diabetic polyneuropathy E11.42 ; Mixed hyperlipidemia E78.2 ; Chronic obstructive pulmonary disease, unspecified COPD type J44.9 ; Hematochezia K92.1 and Degenerative disc disease, lumbar M51.36 [address] [place] [address] [phone] Jan, Chronic ischemic heart disease I25.9 [facility] [place] [id number] [place] [address] 28174- 5027 Jan, PAD (peripheral artery disease) I73.9 and Type 2 diabetes mellitus with diabetic polyneuropathy E11.42 [facility] [id number] [place] [address] 28966- 4502 Dec, Type 2 diabetes mellitus with diabetic polyneuropathy E11.42 ; Hematochezia K92.1 ; PAD (peripheral artery disease) I73.9 ; Chronic ischemic heart disease I25.9 and Weakness of left lower extremity R29.898 [facility] [id number] [address] 5797 Dec, Type 2 diabetes mellitus with diabetic polyneuropathy E11.42 [facility] [place] [id number] [place] [address] 12560- 5216 Nov, Type 2 diabetes mellitus with diabetic polyneuropathy E11.42 and PAD (peripheral artery disease) I73.9 [place] [id number] [place] [address] 57793- 3044 Oct, Type 2 diabetes mellitus with diabetic polyneuropathy E11.42 [address] [id number] Oct, Type 2 diabetes mellitus with diabetic polyneuropathy E11.42 [facility] [address] [address]- 7356 Oct, Type 2 diabetes mellitus with diabetic polyneuropathy E11.42 and Chronic GERD K21.9 [facility] [address] [address]- 0597 Oct, Chronic GERD K21.9 [facility] [id number] [place] [address] 24338- 3914 Sep, [facility] [id number] [place] [address] 18686- 6885 Sep, [facility] [id number] [place] [address] 89102- 1983 Sep, Type 2 diabetes mellitus with diabetic polyneuropathy E11.42 [facility] [id number] [place] [address] 20616- 8306 Aug, [facility] [id number] [place] [address] 10613- 1172 Aug, [facility] [id number] [place] [address] 41232- 8134 Aug, [facility] [id number] [place] [address] 43996- 1378 Aug, Type 2 diabetes mellitus with diabetic polyneuropathy E11.42 [facility] [address] [place] [address] 32315- 8597 Jul, Type 2 diabetes mellitus with diabetic polyneuropathy E11.42 ; Chronic GERD K21.9 ; Hypercholesteremia E78.0 and PAD (peripheral artery disease) I73.9 [facility] [id number] [place] [address] 49569- 8419 Jul, Type 2 diabetes mellitus with diabetic polyneuropathy E11.42 [facility] [address] [address]- 8422 Jul, [place] [id number] [id number] Jul, [facility] [id number] [place] [address] 59301- 1719 Jul, Type 2 diabetes mellitus with diabetic polyneuropathy E11.42 [facility] [address] [address]- 9526 Jul, [facility] [id number] [place] [address] [id number] Jul, Mixed hyperlipidemia E78.2 ; Hypertension, unspecified type I10 ; PAD ( peripheral artery disease) I73.9 and Chronic ischemic heart disease I25.9 [facility] [id number] [place] [address] 25938- 6581 Jun, Type 2 diabetes mellitus with diabetic polyneuropathy E11.42 [facility] [id number] [place] [address] 47821- 5276 Jun, Type 2 diabetes mellitus with diabetic polyneuropathy E11.42 [facility] [id number] [id number] Jun, [facility] [id number] [place] [address] 20841- 3000 Jun, Type 2 diabetes mellitus with diabetic polyneuropathy E11.42 ; PAD (peripheral artery disease) I73.9 ; Hypercholesteremia E78.0 and Hypertension, unspecified type I10 [facility] [id number] [place] [address] [id number] Jun, Type 2 diabetes mellitus with diabetic polyneuropathy E11.42 [facility] [id number] [place] [address] 61573- 4390 May, [facility] [id number] [place] [address] 59658- 5538 May, [facility] [id number] [id number] Apr, Abscess L02.91 [facility] [id number] [place] [address] [phone] Apr, [facility] [address] [id number] [place] [phone] Apr, Dental caries K02.9 and Dental examination Z01.20 [facility] [address] [id number] [id number] Apr, Type 2 diabetes mellitus with diabetic polyneuropathy E11.[address] [facility] [address] [id number] [place] [id number] Mar, Type 2 diabetes mellitus with diabetic polyneuropathy E11.[address] [id number] [place] [id number] Mar, Abscess L02.91 and Type 2 diabetes mellitus with diabetic polyneuropathy E11.[address] [id number] [place] [id number] February, Abscess L02.[address] [id number] [place] [id number] Jan, [facility] [id number] [place] [address] [id number] Jan, Type 2 diabetes mellitus with diabetic polyneuropathy E11.[address] [id number] [place] [id number] Jan, [facility] [id number] [place] [address] [id number] Jan, Abscess L02.[address] [id number] [place] [id number] Dec, Type 2 diabetes mellitus with diabetic polyneuropathy E11.[address] [id number] [id number] Nov, Type 2 diabetes mellitus with diabetic polyneuropathy E11.[address] [id number] [place] [id number] Oct, Type 2 diabetes mellitus with diabetic polyneuropathy E11.[address] [id number] [place] [id number] Oct, Type 2 diabetes mellitus with diabetic polyneuropathy E11.[id number] [place] [address] [id number] Oct, Type 2 diabetes mellitus with diabetic polyneuropathy E11.42 and Hydrocele , unspecified hydrocele type N43.3 [facility] [id number] [place] [address] [id number] Sep, Enlarged testicle N50.89 [facility] [id number] [place] [address] [id number] Sep, Enlarged testicle N50.89 [facility] [id number] [place] [address] [id number] Sep, Type 2 diabetes mellitus with diabetic polyneuropathy E11.42 [facility] [id number] [place] [address] [id number] Sep, [facility] [id number] [place] [address] [id number] Aug, Dyspepsia R10.13 and Type 2 diabetes mellitus with diabetic polyneuropathy E11.42 [facility] [id number] [place] [address] [id number] Jul, [facility] [id number] [place] [address] [id number] Jul, Type 2 diabetes mellitus with diabetic polyneuropathy E11.42 and Dyspepsia R10.13 [facility] [id number] [place] [address] [phone] Jun, [facility] [id number] [place] [address] [phone] Jun, [facility] [id number] [place] [address] [phone] Jun, Type 2 diabetes mellitus with diabetic polyneuropathy E11.42 and Boils L02.92 [facility] [id number] [place] [address] [id number] May, Type 2 diabetes mellitus with diabetic polyneuropathy E11.42 [facility] [id number] [place] [address] [id number] May, Type 2 diabetes mellitus with diabetic polyneuropathy E11.42 and Bloating R14.0 [facility] [id number] [place] [address] [id number] Apr, [facility] [id number] [place] [phone] Apr, [facility] [address] [id number] Apr, Type 2 diabetes mellitus with diabetic polyneuropathy E11.42 [facility] [id number][place] [id number] Mar, [facility] [address] [place] [address] [phone] Mar, Type 2 diabetes mellitus with diabetic polyneuropathy E11.42 [facility] [address] [place] [address] [id number] February, Type 2 diabetes mellitus with diabetic polyneuropathy E11.42 [facility] [address] [place] [address] [id number] February, Type 2 diabetes mellitus with diabetic polyneuropathy E11.42 [address] [place] [address] [id number] February, Type 2 diabetes mellitus with diabetic polyneuropathy E11.42 and Hypercholesteremia E78.0 [facility] [address] [place] [address] [id number] Jan, Type 2 diabetes mellitus with diabetic polyneuropathy E11.42 [facility] [address] [place] [address] [id number] Jan, Type 2 diabetes mellitus with diabetic [...] hospital for several days. 2000 Hospitalization History [facility] discharge dx PAD,CAD, and SVT. Pt has f/u scheduled with 06/0205/31/2016 Hospitalization History PSVT, Hypotension, CAD[facility] 03/13/18
--- OUTSIDE RECORDS SUMMARY | 2019-03-03 11:22 | XMS REPORT ---
Author Author ESTRELLITA PANDYA Organization [facility] Address [address] [place] [address] Care Team Providers Care Composition Weatherboard Installer Name Role Phone ESTRELLITA PANDYA Unavailable PROBLEMS Type Condition ICD9-CM Code GFU81-GE Code Onset Dates Condition Status SNOMED Code Problem Hypertension, unspecified type I10 Active 26356108 Problem Chronic GERD K21.9 Active 759019898 Problem PAD (peripheral artery disease) I73.9 Active 404009641 Problem 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 47908869 Problem PSVT (paroxysmal supraventricular tachycardia) I47.1 Active 56351416 Problem Chronic obstructive pulmonary disease, unspecified COPD type J44.9 Active 83595446 Problem Hematochezia K92.1 Active [id number] Problem Chronic ischemic heart disease I25.9 Active 153832686 Problem Mixed hyperlipidemia E78.2 Active 221523508 Problem Degenerative disc disease, lumbar M51.36 Active 54012103 ALLERGIES No Information ENCOUNTERS Encounter Location Date Diagnosis [place] [id number] [place] [address]809- 3046 May, Type 2 diabetes mellitus with diabetic polyneuropathy E11.42 ; PSVT (paroxysmal supraventricular tachycardia) I47.1 ; PAD (peripheral artery disease) I73.9 ; Chronic obstructive pulmonary disease, unspecified COPD type J44.9 and Skin sore L98.9 [facility] [id number] [address] Apr, [place] [address] [place] [id number] [place] [address] 05649- 9549 Apr, Type 2 diabetes mellitus with diabetic polyneuropathy E11.42 and Chronic GERD K21.9 [place] [address] [place] [id number] [place] [address] 93708- 7242 Mar, [facility] [address] [address] 16[address] Mar, [facility] [id number] [place] [address] 51610- 4358 Mar, [facility] [id number] [place] [address] 24911- 1296 Mar, Hypercholesteremia E78.0 ; Chronic obstructive pulmonary disease, unspecified COPD type J44.9 and PSVT (paroxysmal supraventricular tachycardia) I47.1 [facility] [address] [address] 6[address] Mar, Type 2 diabetes mellitus with diabetic polyneuropathy E11.42 [facility] [id number] [place] [address] 54979- 5426 February, [facility] [id number] [place] [address] 90021- 4849 February, PSVT (paroxysmal supraventricular tachycardia) I47.1 [facility] [address] [address] February, COPD exacerbation J44.1 [facility] [address] [place] [address] 54103- 7236 February, COPD exacerbation J44.1 [facility] [address] [address] 6[address] February, [facility] [address] [address] February, [facility] [address] [address] 99[address] February, Type 2 diabetes mellitus with diabetic polyneuropathy E11.42 and Chronic obstructive pulmonary disease, unspecified COPD type J44.9 [facility] [address] [address] 95[address] February, [facility] [id number] [place] [address] 25757- 5383 Jan, Type 2 diabetes mellitus with diabetic polyneuropathy E11.42 and Chronic GERD K21.9 [place] [address] [place] [id number] [place] [address] 20074- 0677 Jan, Type 2 diabetes mellitus with diabetic polyneuropathy E11.42 ; Mixed hyperlipidemia E78.2 ; Chronic obstructive pulmonary disease, unspecified COPD type J44.9 ; Hematochezia K92.1 and Degenerative disc disease, lumbar M51.36 [facility] [address] [id number] Jan, Chronic ischemic heart disease I25.9 [place] [address] [place] [id number] [place] [address] 09342- 4610 Jan, PAD (peripheral artery disease) I73.9 and Type 2 diabetes mellitus with diabetic polyneuropathy E11.42 [place] [id number] [place] [address] 64790- 4380 Dec, Type 2 diabetes mellitus with diabetic polyneuropathy E11.42 ; Hematochezia K92.1 ; PAD (peripheral artery disease) I73.9 ; Chronic ischemic heart disease I25.9 and Weakness of left lower extremity R29.898 [place] [address] [place] [id number] [place] [address] 34129- 8607 Dec, Type 2 diabetes mellitus with diabetic polyneuropathy E11.42 [place] [address] [place] [address] 91302- 7079 Nov, Type 2 diabetes mellitus with diabetic polyneuropathy E11.42 and PAD (peripheral artery disease) I73.9 [place] [address], [place] [address] 4974 Oct, Type 2 diabetes mellitus with diabetic polyneuropathy E11.42 [address] [id number] Oct, Type 2 diabetes mellitus with diabetic polyneuropathy E11.42 [place] [address] [place] [id number] [place] [address] 92394- 4550 Oct, Type 2 diabetes mellitus with diabetic polyneuropathy E11.42 and Chronic GERD K21.9 [facility] [address] [place] [address] 73537- 7715 Oct, Chronic GERD K21.9 [facility] [address] [place] [address] 00651- 4134 Sep, [facility] [id number] [place] [address] 92777- 0234 Sep, [facility] [id number] [place] [address] 10712- 3293 Sep, Type 2 diabetes mellitus with diabetic polyneuropathy E11.42 [facility] [id number] [place] [address] 19891- 8090 Aug, [facility] [id number] [place] [address] 49304- 5540 Aug, [facility] [id number] [place] [address] 05375- 0012 Aug, [facility] [id number] [place] [address] 90521- 8188 Aug, Type 2 diabetes mellitus with diabetic polyneuropathy E11.42 [facility] [address] [place] [address] 46323- 1688 Jul, Type 2 diabetes mellitus with diabetic polyneuropathy E11.42 ; Chronic GERD K21.9 ; Hypercholesteremia E78.0 and PAD (peripheral artery disease) I73.9 [facility] [address] [address] 4559 Jul, Type 2 diabetes mellitus with diabetic polyneuropathy E11.42 [facility] [address], [place] [address]- 8[address] Jul, [address] [id number] Jul, [facility] [id number] [address]- 9108 Jul, Type 2 diabetes mellitus with diabetic polyneuropathy E11.42 [facility] [id number] [place] [address] 24348- 8492 Jul, [facility] [id number] [place] [address] [id number] Jul, Mixed hyperlipidemia E78.2 ; Hypertension, unspecified type I10 ; PAD ( peripheral artery disease) I73.9 and Chronic ischemic heart disease I25.9 [facility] [id number] [place] [address] 75957- 4538 Jun, Type 2 diabetes mellitus with diabetic polyneuropathy E11.42 [facility] [id number] [place] [address] 18378- 6651 Jun, Type 2 diabetes mellitus with diabetic polyneuropathy E11.42 [facility] [address] [place] [address] [id number] Jun, [facility] [id number] [place] [address] 63089- 2620 Jun, Type 2 diabetes mellitus with diabetic polyneuropathy E11.42 ; PAD (peripheral artery disease) I73.9 ; Hypercholesteremia E78.0 and Hypertension, unspecified type I10 [facility] [id number] [place] [address] [id number] Jun, Type 2 diabetes mellitus with diabetic polyneuropathy E11.42 [facility] [address], [place] [address]- 7689 May, [facility] [address] [place] [address] 27697- 3815 May, [facility] [id number] [place] [address] [id number] Apr, Abscess L02.91 [facility] [address] [place] [address] [id number] Apr, [facility] [address] [place] [id number] [place] [address] [id number] Apr, Dental caries K02.9 and Dental examination Z01.[address] [facility] [address] [id number] [place] [id number] Apr, Type 2 diabetes mellitus with diabetic polyneuropathy E11.[address] [facility] [address] [id number] [place] [id number] Mar, Type 2 diabetes mellitus with diabetic polyneuropathy E11.[address] [facility] [address] [id number] [place] [id number] Mar, Abscess L02.91 and Type 2 diabetes mellitus with diabetic polyneuropathy E11.[address] [facility] [id number] [id number] February, Abscess L02.[address] [facility] [address] [id number] [place] [id number] Jan, [facility] [address] [id number] [place] [id number] Jan, Type 2 diabetes mellitus with diabetic polyneuropathy E11.[address] [facility] [address] [id number] [place] [id number] Jan, [facility] [address] [id number] [place] [id number] Jan, Abscess L02.[address] [address] [id number] [place] [id number] Dec, Type 2 diabetes mellitus with diabetic polyneuropathy E11.[address] [facility] [id number] [place] [id number] Nov, Type 2 diabetes mellitus with diabetic polyneuropathy E11.[address] [facility] [address] [id number] [place] [id number] Oct, Type 2 diabetes mellitus with diabetic polyneuropathy E11.[address] [facility] [address] [id number] [place] [id number] Oct, Type 2 diabetes mellitus with diabetic polyneuropathy E11.[address] [facility] [address] [id number] [place] [id number] Oct, Type 2 diabetes mellitus with diabetic polyneuropathy E11.42 and Hydrocele , unspecified hydrocele type N43.[address] [facility] [address] [id number] [id number] Sep, Enlarged testicle N50.89 [facility] [id number] [place] [address] [id number] Sep, Enlarged testicle N50.89 [facility] [id number] [place] [address] [id number] Sep, Type 2 diabetes mellitus with diabetic polyneuropathy E11.42 [facility] [id number] [place] [address] [id number] Sep, [facility] [id number] [place] [address] [id number] Aug, Dyspepsia R10.13 and Type 2 diabetes mellitus with diabetic polyneuropathy E11.42 [facility] [id number] [place] [address] [id number] Jul, [facility] [id number] [place] [address] [id number] Jul, Type 2 diabetes mellitus with diabetic polyneuropathy E11.42 and Dyspepsia R10.13 [facility] [id number] [place] [address] [id number] Jun, [facility] [id number] [place] [address] [id number] Jun, [facility] [id number] [place] [address] [id number] Jun, Type 2 diabetes mellitus with diabetic polyneuropathy E11.42 and Boils L02.92 [facility] [id number] [place] [address] [id number] May, Type 2 diabetes mellitus with diabetic polyneuropathy E11.42 [facility] [id number] [place] [address] [id number] May, Type 2 diabetes mellitus with diabetic polyneuropathy E11.42 and Bloating R14.0 [facility] [address] [id number] [id number] Apr, [address] [id number] Apr, [facility] [address] [place] [address] [id number] [id number] Apr, Type 2 diabetes mellitus with diabetic polyneuropathy E11.42 [facility] [id number] [place] [address] [id number] Mar, [facility] [address] [place] [id number] [place] [address] [id number] Mar, Type 2 diabetes mellitus with diabetic polyneuropathy E11.42 [facility] [id number] [place] [address] [id number] February, Type 2 diabetes mellitus with diabetic polyneuropathy E11.42 [facility] [id number] [place] [address] [id number] February, Type 2 diabetes mellitus with diabetic polyneuropathy E11.42 [facility] [address] [id number] [place] [address] [id number] February, Type 2 diabetes mellitus with diabetic polyneuropathy E11.42 and Hypercholesteremia E78.0 [facility] [address] [id number] [place] [address] [id number] Jan, Type 2 diabetes mellitus with diabetic polyneuropathy E11.42 [place] [id number] [place] [address] [id number] Jan, Type 2 diabetes mellitus with diabetic polyneuropathy E11.42 IMMUNIZATIONS No Known Immunizations SOCIAL HISTORY Never Assessed REASON FOR VISIT Requests return call PLAN OF CARE VITAL SIGNS MEDICATIONS No [...] stents to the right coronary artery by [facility] 05/31/17 Hospitalization History ER Visit for increased heart rate and elevated blood sugar 08/2015 Hospitalization History Had tooth extracted and became septic, was in hospital for several days. 1999 Hospitalization History [facility] discharge dx PAD,CAD, and SVT. Pt has f/u scheduled with 06/0205/31/2016 Hospitalization History PSVT, Hypotension, CAD-[facility] 03/13/18
--- OUTSIDE RECORDS SUMMARY | 2019-03-03 11:22 | XMS REPORT ---
Author Author ESTRELLITA PANDYA Organization [facility] Address [address] [place] [address] Care Team Providers Care Clay Preparation Supervisor Name Role Phone ESTRELLITA PANDYA Unavailable PROBLEMS Type Condition ICD9-CM Code RZM64-PT Code Onset Dates Condition Status SNOMED Code Problem Hypertension, unspecified type I10 Active 28219574 Problem Chronic GERD K21.9 Active 328935135 Problem PAD (peripheral artery disease) I73.9 Active 111262633 Problem 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 36623878 Problem PSVT (paroxysmal supraventricular tachycardia) I47.1 Active 21298462 Problem Chronic obstructive pulmonary disease, unspecified COPD type J44.9 Active 23980457 Problem Hematochezia K92.1 Active 821289720920425 Problem Chronic ischemic heart disease I25.9 Active 824358853 Problem Mixed hyperlipidemia E78.2 Active 650081345 Problem Degenerative disc disease, lumbar M51.36 Active 30283877 ALLERGIES No Information ENCOUNTERS Encounter Location Date Diagnosis [place] [id number] [place] [address]309- 5805 May, Type 2 diabetes mellitus with diabetic polyneuropathy E11.42 ; PSVT (paroxysmal supraventricular tachycardia) I47.1 ; PAD (peripheral artery disease) I73.9 ; Chronic obstructive pulmonary disease, unspecified COPD type J44.9 and Skin sore L98.9 [facility] [id number] [address] Apr, [place] [id number] [place] [address] 68984- 7268 Apr, Type 2 diabetes mellitus with diabetic polyneuropathy E11.42 and Chronic GERD K21.9 [place] [id number] [place] [address] 74723- 0795 Mar, [facility] [address], [place] [address] Mar, [facility] [id number] [place] [address] 35233- 9291 Mar, [facility] [id number] [place] [address] 36124- 7111 Mar, Hypercholesteremia E78.0 ; Chronic obstructive pulmonary disease, unspecified COPD type J44.9 and PSVT (paroxysmal supraventricular tachycardia) I47.1 [facility] [address] [address] Mar, Type 2 diabetes mellitus with diabetic polyneuropathy E11.42 [facility] [id number] [place] [address] 80064- 3958 February, [facility] [id number] [place] [address] 82451- 1782 February, PSVT (paroxysmal supraventricular tachycardia) I47.1 [facility] [address], [place] [address] February, COPD exacerbation J44.1 [facility] [address] [place] [address] 99243- 2183 February, COPD exacerbation J44.1 [facility] [address], [place] [address] February, [facility] [address], [place] [address] February, [facility] [address], [place] [address] February, Type 2 diabetes mellitus with diabetic polyneuropathy E11.42 and Chronic obstructive pulmonary disease, unspecified COPD type J44.9 [facility] [address], [place] [address] February, [facility] [id number] [place] [address] 46744- 1515 Jan, Type 2 diabetes mellitus with diabetic polyneuropathy E11.42 and Chronic GERD K21.9 [place] [address] [id number] [place] [address] 57830- 2886 Jan, Type 2 diabetes mellitus with diabetic polyneuropathy E11.42 ; Mixed hyperlipidemia E78.2 ; Chronic obstructive pulmonary disease, unspecified COPD type J44.9 ; Hematochezia K92.1 and Degenerative disc disease, lumbar M51.36 [facility] [address] [id number] Jan, Chronic ischemic heart disease I25.9 [place] [address] [id number] [place] [address] 04127- 1589 Jan, PAD (peripheral artery disease) I73.9 and Type 2 diabetes mellitus with diabetic polyneuropathy E11.42 [place] [id number] [place] [address] 19595- 0591 Dec, Type 2 diabetes mellitus with diabetic polyneuropathy E11.42 ; Hematochezia K92.1 ; PAD (peripheral artery disease) I73.9 ; Chronic ischemic heart disease I25.9 and Weakness of left lower extremity R29.898 [place] [address] [place] [id number] [place] [address] 84330- 5348 Dec, Type 2 diabetes mellitus with diabetic polyneuropathy E11.42 [place] [address] [place] [address] 72768- 3695 Nov, Type 2 diabetes mellitus with diabetic polyneuropathy E11.42 and PAD (peripheral artery disease) I73.9 [place] [address], [place] [address] 9[address] Oct, Type 2 diabetes mellitus with diabetic polyneuropathy E11.42 [address] [id number] Oct, Type 2 diabetes mellitus with diabetic polyneuropathy E11.42 [place] [address] [place] [id number] [place] [address] 89991- 0628 Oct, Type 2 diabetes mellitus with diabetic polyneuropathy E11.42 and Chronic GERD K21.9 [facility] [address] [place] [address] 50075- 9400 Oct, Chronic GERD K21.9 [facility] [address] [place] [address] 30747- 9450 Sep, [facility] [id number] [place] [address] 35660- 8734 Sep, [facility] [id number] [place] [address] 95152- 9030 Sep, Type 2 diabetes mellitus with diabetic polyneuropathy E11.42 [facility] [id number] [place] [address] 54956- 6052 Aug, [facility] [id number] [place] [address] 72104- 0019 Aug, [facility] [id number] [place] [address] 96535- 6414 Aug, [facility] [id number] [place] [address] 70044- 1295 Aug, Type 2 diabetes mellitus with diabetic polyneuropathy E11.42 [facility] [address] [place] [address] 99773- 2942 Jul, Type 2 diabetes mellitus with diabetic polyneuropathy E11.42 ; Chronic GERD K21.9 ; Hypercholesteremia E78.0 and PAD (peripheral artery disease) I73.9 [facility] [address], [place] [address]16 Jul, Type 2 diabetes mellitus with diabetic polyneuropathy E11.42 [facility] [address], [place] [address] Jul, [address] [id number] Jul, [facility] [id number] [address] 5096 Jul, Type 2 diabetes mellitus with diabetic polyneuropathy E11.42 [facility] [id number] [place] [address] 80350- 7496 Jul, [facility] [id number] [place] [address] [id number] Jul, Mixed hyperlipidemia E78.2 ; Hypertension, unspecified type I10 ; PAD ( peripheral artery disease) I73.9 and Chronic ischemic heart disease I25.9 [facility] [id number] [place] [address] 12883- 1244 Jun, Type 2 diabetes mellitus with diabetic polyneuropathy E11.42 [facility] [id number] [place] [address] 91018- 5625 Jun, Type 2 diabetes mellitus with diabetic polyneuropathy E11.42 [facility] [address] [place] [address] [id number] Jun, [facility] [id number] [place] [address] 98404- 5848 Jun, Type 2 diabetes mellitus with diabetic polyneuropathy E11.42 ; PAD (peripheral artery disease) I73.9 ; Hypercholesteremia E78.0 and Hypertension, unspecified type I10 [facility] [id number] [place] [address] [id number] Jun, Type 2 diabetes mellitus with diabetic polyneuropathy E11.42 [facility] [address], [place] [address]- 8733 May, [facility] [address] [place] [address] 04676- 7840 May, [facility] [id number] [place] [address] [id number] Apr, Abscess L02.91 [facility] [address] [place] [address] [id number] Apr, [facility] [id number] [place] [address] [id number] Apr, Dental caries K02.9 and Dental examination Z01.[address] [facility] [address] [id number] [place] [id number] Apr, Type 2 diabetes mellitus with diabetic polyneuropathy E11.[address] [facility] [address] [id number] [place] [id number] Mar, Type 2 diabetes mellitus with diabetic polyneuropathy E11.[address] [facility] [address] [id number] [place] [id number] Mar, Abscess L02.91 and Type 2 diabetes mellitus with diabetic polyneuropathy E11.[address] [facility] [id number], [place] [id number] February, Abscess L02.[address] [facility] [address] [id number] [place] [id number] Jan, [facility] [address] [id number] [place] [id number] Jan, Type 2 diabetes mellitus with diabetic polyneuropathy E11.[address] [facility] [address] [id number] [place] [id number] Jan, [facility] [address] [id number] [place] [id number] Jan, Abscess L02.[address] [address] [id number] [place] [id number] Dec, Type 2 diabetes mellitus with diabetic polyneuropathy E11.[address] [facility] [address] [id number] [place] [id number] Nov, Type 2 diabetes mellitus with diabetic polyneuropathy E11.[address] [facility] [address] [id number] [place] [id number] Oct, Type 2 diabetes mellitus with diabetic polyneuropathy E11.[address] [facility] [address] [id number] [place] [id number] Oct, Type 2 diabetes mellitus with diabetic polyneuropathy E11.[address] [facility] [address] [id number] [place] [id number] Oct, Type 2 diabetes mellitus with diabetic polyneuropathy E11.42 and Hydrocele , unspecified hydrocele type N43.[address] [facility] [address] [id number] [id number] Sep, Enlarged testicle N50.89 [facility] [id number] [place] [address] [id number] Sep, Enlarged testicle N50.89 [facility] [id number] [place] [address] [id number] Sep, Type 2 diabetes mellitus with diabetic polyneuropathy E11.42 [facility] [id number] [place] [address] [id number] Sep, [facility] [id number] [place] [address] [id number] Aug, Dyspepsia R10.13 and Type 2 diabetes mellitus with diabetic polyneuropathy E11.42 [facility] [id number] [place] [address] [id number] Jul, [facility] [id number] [place] [address] [id number] Jul, Type 2 diabetes mellitus with diabetic polyneuropathy E11.42 and Dyspepsia R10.13 [facility] [id number] [place] [address] [id number] Jun, [facility] [id number] [place] [address] [id number] Jun, [facility] [id number] [place] [address] [id number] Jun, Type 2 diabetes mellitus with diabetic polyneuropathy E11.42 and Boils L02.92 [facility] [id number] [place] [address] [id number] May, Type 2 diabetes mellitus with diabetic polyneuropathy E11.42 [facility] [id number] [place] [address] [id number] May, Type 2 diabetes mellitus with diabetic polyneuropathy E11.42 and Bloating R14.0 [facility] [address] [id number] [id number] Apr, [address] [phone] Apr, [facility] [address] [place] [address] [id number] [id number] Apr, Type 2 diabetes mellitus with diabetic polyneuropathy E11.42 [facility] [id number] [place] [address] [id number] Mar, [facility] [id number] [place] [address] [id number] Mar, Type 2 diabetes mellitus with diabetic polyneuropathy E11.42 [facility] [id number] [place] [address] [id number] February, Type 2 diabetes mellitus with diabetic polyneuropathy E11.42 [facility] [id number] [place] [address] [id number] February, Type 2 diabetes mellitus with diabetic polyneuropathy E11.42 [facility] [id number] [place] [address] [id number] February, Type 2 diabetes mellitus with diabetic polyneuropathy E11.42 and Hypercholesteremia E78.0 [facility] [id number] [place] [address] [id number] Jan, Type 2 diabetes mellitus with diabetic polyneuropathy E11.42 [place] [id number] [place] [address] [phone] Jan, Type 2 diabetes mellitus with diabetic polyneuropathy E11.42 IMMUNIZATIONS No Known Immunizations SOCIAL HISTORY Never Assessed REASON FOR VISIT PALS -- Tradjenta and Advair PLAN OF CARE VITAL SIGNS MEDICATIONS Medication Instructions Dosage Frequency Start Date End Date Duration Status Tradjenta 5 mg Orally Once a day 1 tablet 24h Jan, 90 days Active Advair Diskus 250-50 MCG/DOSE Inhalation Twice a day 1 puff 12h Jan, 90 days Active RESULTS No Results PROCEDURES [...] stents to the right coronary artery by [facility] 05/31/17 Hospitalization History ER Visit for increased heart rate and elevated blood sugar 08/2015 Hospitalization History Had tooth extracted and became septic, was in hospital for several days. 1999 Hospitalization History [facility] discharge dx PAD,CAD, and SVT. Pt has f/u scheduled with 06/0205/31/2016 Hospitalization History PSVT, Hypotension, CAD-[facility] 03/13/18
--- OUTSIDE RECORDS SUMMARY | 2019-03-03 11:23 | XMS REPORT ---
Author Author ESTRELLITA PANDYA Organization [facility] Address [address] [place] [address] Care Team Providers Care Formulation Technician Name Role Phone ESTRELLITA PANDYA Unavailable PROBLEMS Type Condition ICD9-CM Code VBY99-XR Code Onset Dates Condition Status SNOMED Code Problem PAD (peripheral artery disease) I73.9 Active 402614673 Problem Chronic ischemic heart disease I25.9 Active 769241011 Problem Chronic GERD K21.9 Active 263511295 Problem PSVT (paroxysmal supraventricular tachycardia) I47.1 Active 38023483 Problem COPD exacerbation J44.1 Active 890247985 Problem Chronic obstructive pulmonary disease, unspecified COPD type J44.9 Active 62394054 Problem Hematochezia K92.1 Active 708282856685681 Problem Degenerative disc disease, lumbar M51.36 Active 65618413 Problem Mixed hyperlipidemia E78.2 Active 957399968 Problem Hypercholesteremia E78.0 Active 47292977 Problem Hydrocele, unspecified hydrocele type N43.3 Active 79649229 Problem Abscess L02.91 Active 038659948 Problem 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 57385681 Problem Hypertension, unspecified type I10 Active 48740160 ALLERGIES Substance Reaction Event Type Date Status Penicillin V Potassium rash Drug Allergy Dec, Active ENCOUNTERS Encounter Location Date Diagnosis [facility] [address] [facility] [id number] [address] May, [facility] [id number] [address] Apr, [facility] [address] [id number] [address] Apr, Type 2 diabetes mellitus with diabetic polyneuropathy E11.42 and Chronic GERD K21.9 [facility] [address] [id number] [address] Mar, [facility] [address] [address] Mar, [facility] [address] [address] Mar, [facility] [address] [id number] [address] Mar, Hypercholesteremia E78.0 ; Chronic obstructive pulmonary disease, unspecified COPD type J44.9 and PSVT (paroxysmal supraventricular tachycardia) I47.1 [facility] [address] [id number] [address] Mar, Type 2 diabetes mellitus with diabetic polyneuropathy E11.42 [facility] [address] [id number] [address] February, [facility] [id number] [place] [address] February, PSVT (paroxysmal supraventricular tachycardia) I47.1 [facility] [address], [place] [address] February, COPD exacerbation J44.1 [facility] [address] [place] [address] February, COPD exacerbation J44.1 [facility] [address], [place] [address] February, [facility] [address], [place] [address] February, [facility] [address] [address] February, Type 2 diabetes mellitus with diabetic polyneuropathy E11.42 and Chronic obstructive pulmonary disease, unspecified COPD type J44.9 [facility] [address], [place] [address] February, [facility] [id number] [place] [address] Jan, Type 2 diabetes mellitus with diabetic polyneuropathy E11.42 and Chronic GERD K21.9 [id number] [place] [address] Jan, Type 2 diabetes mellitus with diabetic polyneuropathy E11.42 ; Mixed hyperlipidemia E78.2 ; Chronic obstructive pulmonary disease, unspecified COPD type J44.9 ; Hematochezia K92.1 and Degenerative disc disease, lumbar M51.36 [address] [place] [phone] Jan, Chronic ischemic heart disease I25.9 [place] [id number] [place] [address] Jan, PAD (peripheral artery disease) I73.9 and Type 2 diabetes mellitus with diabetic polyneuropathy E11.42 [place] [id number] [place] [address] Dec, Type 2 diabetes mellitus with diabetic polyneuropathy E11.42 ; Hematochezia K92.1 ; PAD (peripheral artery disease) I73.9 ; Chronic ischemic heart disease I25.9 and Weakness of left lower extremity R29.898 [place] [id number] [place] [address]- 58[address] Dec, Type 2 diabetes mellitus with diabetic polyneuropathy E11.42 [place] [id number] [place] [address]- [address] Nov, Type 2 diabetes mellitus with diabetic polyneuropathy E11.42 and PAD (peripheral artery disease) I73.9 [place] [id number] [place] [address] Oct, Type 2 diabetes mellitus with diabetic polyneuropathy E11.42 [address] [id number] Oct, Type 2 diabetes mellitus with diabetic polyneuropathy E11.42 [place] [address] [place] [address] Oct, Type 2 diabetes mellitus with diabetic polyneuropathy E11.42 and Chronic GERD K21.9 [facility] [address] [place] [address] Oct, Chronic GERD K21.9 [facility] [address], [place] [address] Sep, [facility] [id number] [place] [address]- [address] Sep, [facility] [address] [place] [address]- [address] Sep, Type 2 diabetes mellitus with diabetic polyneuropathy E11.42 [facility] [address] [place] [address]- [address] Aug, [facility] [id number] [place] [address]- [address] Aug, [facility] [address] [place] [address]- [address] Aug, [facility] [id number] [place] [address] 04[address]- 1525 Aug, Type 2 diabetes mellitus with diabetic polyneuropathy E11.42 [facility] [address], [place] [address] Jul, Type 2 diabetes mellitus with diabetic polyneuropathy E11.42 ; Chronic GERD K21.9 ; Hypercholesteremia E78.0 and PAD (peripheral artery disease) I73.9 [facility] [address], [place] [address] Jul, Type 2 diabetes mellitus with diabetic polyneuropathy E11.42 [facility] [address], [place] [address] Jul, [address] [id number] Jul, [facility] [address], [place] [address] Jul, Type 2 diabetes mellitus with diabetic polyneuropathy E11.42 [facility] [id number] [place] [address]- [address] Jul, [facility] [id number] [place] [id number] Jul, Mixed hyperlipidemia E78.2 ; Hypertension, unspecified type I10 ; PAD ( peripheral artery disease) I73.9 and Chronic ischemic heart disease I25.9 [facility] [address] [place] [address]- [address] Jun, Type 2 diabetes mellitus with diabetic polyneuropathy E11.42 [facility] [address] [place] [address] 82494- 9896 Jun, Type 2 diabetes mellitus with diabetic polyneuropathy E11.42 [facility] [id number] [place] [address] [id number] Jun, [facility] [address] [place] [address] 9[address]- 3521 Jun, Type 2 diabetes mellitus with diabetic polyneuropathy E11.42 ; PAD (peripheral artery disease) I73.9 ; Hypercholesteremia E78.0 and Hypertension, unspecified type I10 [facility] [id number] [place] [address] [phone] Jun, Type 2 diabetes mellitus with diabetic polyneuropathy E11.42 [facility] [address] [place] [address]120- 7327 May, [facility] [address] [address] May, [facility] [id number] [place] [address] [id number] Apr, Abscess L02.91 [facility] [id number] [place] [address] [id number] Apr, [facility] [id number] [place] [address] [id number] Apr, Dental caries K02.9 and Dental examination Z01.[address] [facility] [address] [id number] [place] [phone] Apr, Type 2 diabetes mellitus with diabetic polyneuropathy E11.[address] [facility] [address] [id number] [place] [id number] Mar, Type 2 diabetes mellitus with diabetic polyneuropathy E11.[address] [facility] [id number] [id number] Mar, Abscess L02.91 and Type 2 diabetes mellitus with diabetic polyneuropathy E11.[address] [facility] [id number] RD[place] [phone] February, Abscess L02.[address] [id number] RD, [place] [phone] Jan, [facility] [address] [id number] [place] [phone] Jan, Type 2 diabetes mellitus with diabetic polyneuropathy E11.[id number] RD, [place] [phone] Jan, [facility] [address] [id number] [place] [phone] Jan, Abscess L02.[address] [id number] [place] [id number] Dec, Type 2 diabetes mellitus with diabetic polyneuropathy E11.[address] [id number] RD, [place] [phone] Nov, Type 2 diabetes mellitus with diabetic polyneuropathy E11.[address] [id number] [place] [id number] Oct, Type 2 diabetes mellitus with diabetic polyneuropathy E11.[address] [id number] [place] [id number] Oct, Type 2 diabetes mellitus with diabetic polyneuropathy E11.[address] [id number] [place] [phone] Oct, Type 2 diabetes mellitus with diabetic polyneuropathy E11.42 and Hydrocele , unspecified hydrocele type N43.3 [facility] [address] [id number] [id number] Sep, Enlarged testicle N50.89 [facility] [id number] [place] [address] [id number] Sep, Enlarged testicle N50.89 [facility] [id number] [place] [address] [id number] Sep, Type 2 diabetes mellitus with diabetic polyneuropathy E11.42 [facility] [id number] [place] [address] [id number] Sep, [facility] [id number] [place] [address] [id number] Aug, Dyspepsia R10.13 and Type 2 diabetes mellitus with diabetic polyneuropathy E11.42 [facility] [id number] [place] [address] [phone] Jul, [facility] [id number] [place] [address] [id number] Jul, Type 2 diabetes mellitus with diabetic polyneuropathy E11.42 and Dyspepsia R10.13 [facility] [id number] [place] [address] [id number] Jun, [facility] [id number] [place] [address] [phone] Jun, [facility] [id number] [place] [address] [phone] Jun, Type 2 diabetes mellitus with diabetic polyneuropathy E11.42 and Boils L02.92 [facility] [id number] [place] [address] [id number] May, Type 2 diabetes mellitus with diabetic polyneuropathy E11.42 [facility] [id number] [place] [address] [phone] May, Type 2 diabetes mellitus with diabetic polyneuropathy E11.42 and Bloating R14.0 [facility] [address] [id number] [id number] Apr, [address] [phone] Apr, [facility] [address] [facility] [id number] [phone] Apr, Type 2 diabetes mellitus with diabetic polyneuropathy E11.[address] [facility] [address] [id number][place] [phone] Mar, [facility] [address] [id number] [phone] Mar, Type 2 diabetes mellitus with diabetic polyneuropathy E11.[address] [facility] [address] [id number][place] [id number] February, Type 2 diabetes mellitus with diabetic polyneuropathy E11.[address] [facility] [address] [id number][place] [id number] February, Type 2 diabetes mellitus with diabetic polyneuropathy E11.[address] [facility] [place] [id number] [id number] February, Type 2 diabetes mellitus with diabetic polyneuropathy E11.42 and Hypercholesteremia E78.0 [facility] [place] [id number] [id number] Jan, Type 2 diabetes mellitus with diabetic polyneuropathy E11.[address] [facility] [place] [id number], [place] [id number] Jan, Type 2 diabetes mellitus with diabetic polyneuropathy E11.42 IMMUNIZATIONS No Known Immunizations SOCIAL HISTORY Never Assessed REASON FOR VISIT Diabetes, Left foot numb and painfull[place], SOB and coughing spells PLAN OF CARE Activity Details Follow Up 6 Weeks Reason:test results VITAL SIGNS Height 66.0 in 2018-01-07 Weight 199.3 lbs 2018-01-07 Temperature 98.0 degrees Fahrenheit 2018-01-07 Heart Rate 78 bpm 2018-01-07 Respiratory Rate 20 2018-01-07 Oximetry on room air:94 % 2018-01-07 BMI 32.16 kg/m2 2018-01-07 Blood pressure systolic 142 mmHg 2018-01-07 Blood pressure diastolic 88 mmHg 2018-01-07 MEDICATIONS Medication Instructions Dosage Frequency Start Date End Date Duration Status Lantus 100 UNIT/ML Subcutaneous 2 times a day 28 units 12h Mar, 90 days Active Pantoprazole Sodium 40 MG Orally Once a day 1 tablet 24h 15 May, 2017 90 days Active Gabapentin 600 MG Orally Three times a day 1 capsule 8h Jan, 30 days Active Crestor 40 mg Orally Once a day 1 tablet 24h Jun, 30 days Active BD Insulin Syringe 30G X 1/2 subcutaneously with insulin doses Use as directed Jun, Active Lyrica 50 mg Orally Three times a day 1 capsule 8h Oct, 30 days Active Metoprolol Succinate ER 25 MG Orally Once a day 1 tablet 24h Jun, 90 days Active Accu-Chek Britt test strips as directed 8h Jan, Active BD Pen Needle Nancy U/F BD PEN NEEDLE NANCY subcutaneous 2 times a day as directed 12h February, Active NovoLog 100 UNIT/ML Subcutaneous before meals Inject 30 units Aug, 90 days Active MetFORMIN HCl ER 500 mg Orally twice a day 2 tabs 12h Jul, 30 days Active Accu-Chek Britt glucometer as directed Jan, Active Clopidogrel Bisulfate 75 MG Orally Once a day 1 tablet 24h 90 days Active Lisinopril 10 mg Orally Once a day 1 tablet 24h 30 days Active RESULTS Name Result Date Reference Range MRI : Lumbar w/o contrast 2018-01-14 PROCEDURES No Known procedures INSTRUCTIONS MEDICATIONS ADMINISTERED [...] to the right coronary artery by [facility] 05/31/17 Hospitalization History ER Visit for increased heart rate and elevated blood sugar 08/2015 Hospitalization History Had tooth extracted and became septic, was in hospital for several days. [address] [facility] discharge dx PAD,CAD, and SVT. Pt has f/u scheduled with 06/0205/31/2016 Hospitalization History PSVT, Hypotension, CAD-[facility] 03/13/18
--- OUTSIDE RECORDS SUMMARY | 2019-03-03 11:23 | XMS REPORT ---
Author Author ESTRELLITA PANDYA Organization [facility] Address [address] [place] [address] Care Team Providers Care Food Safety Technician Name Role Phone ESTRELLITA PANDYA Unavailable PROBLEMS Type Condition ICD9-CM Code QWD57-HE Code Onset Dates Condition Status SNOMED Code Problem PAD (peripheral artery disease) I73.9 Active 797266469 Problem Chronic ischemic heart disease I25.9 Active 715315474 Problem Chronic GERD K21.9 Active 128248388 Problem PSVT (paroxysmal supraventricular tachycardia) I47.1 Active 74445781 Problem COPD exacerbation J44.1 Active 481115371 Problem Chronic obstructive pulmonary disease, unspecified COPD type J44.9 Active 42769831 Problem Hematochezia K92.1 Active 079041087120541 Problem Degenerative disc disease, lumbar M51.36 Active 99797543 Problem Mixed hyperlipidemia E78.2 Active 777939669 Problem Hypercholesteremia E78.0 Active 66341847 Problem Hydrocele, unspecified hydrocele type N43.3 Active 87114722 Problem Abscess L02.91 Active 463495719 Problem 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 48274721 Problem Hypertension, unspecified type I10 Active 52225250 ALLERGIES No Information ENCOUNTERS Encounter Location Date Diagnosis [facility] [id number] [place] [address] May, [facility] [address], [place] [address] Apr, [place] [address] [place] [id number] [place] [address]- [address] Apr, Type 2 diabetes mellitus with diabetic polyneuropathy E11.42 and Chronic GERD K21.9 [place] [address] [place] [id number] [address] Mar, [place] [address] [address] Mar, [facility] [id number] [place] [address]36- 9932 Mar, [facility] [address] [address] Mar, Hypercholesteremia E78.0 ; Chronic obstructive pulmonary disease, unspecified COPD type J44.9 and PSVT (paroxysmal supraventricular tachycardia) I47.1 [facility] [address] [address] Mar, Type 2 diabetes mellitus with diabetic polyneuropathy E11.42 [facility] [address] [id number] [place] [address]888- 8076 February, [facility] [id number] [place] [address] 03511- 9371 February, PSVT (paroxysmal supraventricular tachycardia) I47.1 [facility] [address], [place] [address] February, COPD exacerbation J44.1 [facility] [address] [id number] [place] [address] 80316- 0855 February, COPD exacerbation J44.1 [facility] [address] [address] February, [facility] [address] [address] February, [facility] [address], [place] [address] February, Type 2 diabetes mellitus with diabetic polyneuropathy E11.42 and Chronic obstructive pulmonary disease, unspecified COPD type J44.9 [facility] [address] [address] February, [facility] [address] [address] Jan, Type 2 diabetes mellitus with diabetic polyneuropathy E11.42 and Chronic GERD K21.9 [place] [address] [place] [id number] [place] [address]10- 4747 Jan, Type 2 diabetes mellitus with diabetic polyneuropathy E11.42 ; Mixed hyperlipidemia E78.2 ; Chronic obstructive pulmonary disease, unspecified COPD type J44.9 ; Hematochezia K92.1 and Degenerative disc disease, lumbar M51.36 [place] [id number] [place] [address] [phone] Jan, Chronic ischemic heart disease I25.9 [place] [address] [address] Jan, PAD (peripheral artery disease) I73.9 and Type 2 diabetes mellitus with diabetic polyneuropathy E11.42 [place] [address] [address] Dec, Type 2 diabetes mellitus with diabetic polyneuropathy E11.42 ; Hematochezia K92.1 ; PAD (peripheral artery disease) I73.9 ; Chronic ischemic heart disease I25.9 and Weakness of left lower extremity R29.898 [place] [address] [place] [id number] [place] [address] 54642- 2129 Dec, Type 2 diabetes mellitus with diabetic polyneuropathy E11.42 [place] [address] [place] [id number] [place] [address] 26773- 7537 Nov, Type 2 diabetes mellitus with diabetic polyneuropathy E11.42 and PAD (peripheral artery disease) I73.9 [place] [address] [place] [id number] [place] [address]29- 2409 Oct, Type 2 diabetes mellitus with diabetic polyneuropathy E11.[address] [place] [address] [phone] Oct, Type 2 diabetes mellitus with diabetic polyneuropathy E11.42 [place] [address] [place] [id number] [place] [address] 68602- 1311 Oct, Type 2 diabetes mellitus with diabetic polyneuropathy E11.42 and Chronic GERD K21.9 [facility] [address], [place] [address] Oct, Chronic GERD K21.9 [facility] [address], [place] [address] Sep, [facility] [address] [place] [address] 05975- 9502 Sep, [facility] [address] [place] [address] 28032- 9795 Sep, Type 2 diabetes mellitus with diabetic polyneuropathy E11.42 [facility] [address] [place] [address] 46394- 8832 Aug, [facility] [address] [place] [address] [id number] [place] [address] 66606- 1914 Aug, [facility] [address] [place] [address] 89266- 8620 Aug, [facility] [address] [place] [address] 70184- 4284 Aug, Type 2 diabetes mellitus with diabetic polyneuropathy E11.42 [facility] [address], [place] [address] Jul, Type 2 diabetes mellitus with diabetic polyneuropathy E11.42 ; Chronic GERD K21.9 ; Hypercholesteremia E78.0 and PAD (peripheral artery disease) I73.9 [facility] [address], [place] [address] Jul, Type 2 diabetes mellitus with diabetic polyneuropathy E11.42 [facility] [address], [place] [address]- 97[address] Jul, [address] [id number] Jul, [facility] [address] [place] [address] 35326- 0254 Jul, Type 2 diabetes mellitus with diabetic polyneuropathy E11.42 [facility] [address] [place] [address] 24937- 8452 Jul, [facility] [id number] [place] [address] [id number] Jul, Mixed hyperlipidemia E78.2 ; Hypertension, unspecified type I10 ; PAD ( peripheral artery disease) I73.9 and Chronic ischemic heart disease I25.9 [facility] [address] [id number] [place] [address] 25405- 6034 Jun, Type 2 diabetes mellitus with diabetic polyneuropathy E11.42 [facility] [address] [address] [id number] [place] [address] 57291- 6866 Jun, Type 2 diabetes mellitus with diabetic polyneuropathy E11.42 [facility] [address] [place] [address] [phone] Jun, [facility] [address] [place] [address] 18712- 8239 Jun, Type 2 diabetes mellitus with diabetic polyneuropathy E11.42 ; PAD (peripheral artery disease) I73.9 ; Hypercholesteremia E78.0 and Hypertension, unspecified type I10 [facility] [id number] [place] [address] [phone] Jun, Type 2 diabetes mellitus with diabetic polyneuropathy E11.42 [facility] [address] [place] [address] 23983- 5426 May, [facility] [address], [place] [address]- 9336 May, [facility] [id number] [place] [address] [phone] Apr, Abscess L02.91 [facility] [address] [place] [address] [phone] Apr, [facility] [id number] [place] [phone] 14 Dominic, 2017 Dental caries K02.9 and Dental examination Z01.[address] [facility] [address] [id number] [place] [phone] Apr, Type 2 diabetes mellitus with diabetic polyneuropathy E11.[address] [facility] [id number], [place] [id number] Mar, Type 2 diabetes mellitus with diabetic polyneuropathy E11.[address] [facility] [address] [id number] [place] [phone] Mar, Abscess L02.91 and Type 2 diabetes mellitus with diabetic polyneuropathy E11.[address] [facility] [address] [id number] RD, [place] [id number] February, Abscess L02.[address] [facility] [id number] [address], [place] [phone] Jan, [facility] [address] [id number] [place] [phone] Jan, Type 2 diabetes mellitus with diabetic polyneuropathy E11.[address] [facility] [address] [id number] [place] [phone] Jan, [facility] [address] [id number] RD, [place] [id number] Jan, Abscess L02.[address] [id number] [place] [phone] Dec, Type 2 diabetes mellitus with diabetic polyneuropathy E11.[address] [facility] [id number] [place] [phone] Nov, Type 2 diabetes mellitus with diabetic polyneuropathy E11.[address] [id number] [place] [phone] Oct, Type 2 diabetes mellitus with diabetic polyneuropathy E11.[address] [id number] [place] [id number] Oct, Type 2 diabetes mellitus with diabetic polyneuropathy E11.[address] [facility] [id number] [place] [phone] Oct, Type 2 diabetes mellitus with diabetic polyneuropathy E11.42 and Hydrocele , unspecified hydrocele type N43.[address] [facility] [address] [id number] [place] [id number] Sep, Enlarged testicle N50.89 [facility] [id number] [place] [address] [phone] Sep, Enlarged testicle N50.89 [facility] [address] [id number] [place] [id number] Sep, Type 2 diabetes mellitus with diabetic polyneuropathy E11.[address] [facility] [id number] [place] [address] [id number] Sep, [facility] [address] [id number] [place] [phone] Aug, Dyspepsia R10.13 and Type 2 diabetes mellitus with diabetic polyneuropathy E11.42 [facility] [address] [id number] [place] [phone] Jul, [facility] [id number] [place] [address] [id number] Jul, Type 2 diabetes mellitus with diabetic polyneuropathy E11.42 and Dyspepsia R10.13 [facility] [address] [id number] [place] [phone] Jun, [facility] [id number] [place] [address] [phone] Jun, [facility] [address] [id number] [place] [phone] Jun, Type 2 diabetes mellitus with diabetic polyneuropathy E11.42 and Boils L02.92 [facility] [address] [id number] [place] [phone] May, Type 2 diabetes mellitus with diabetic polyneuropathy E11.42 [facility] [address] [id number] [place] [phone] May, Type 2 diabetes mellitus with diabetic polyneuropathy E11.42 and Bloating R14.0 [facility] [address] [id number] [place] [phone] Apr, [address] [id number] [phone] Apr, [facility] [address] [place] [address] [id number] [phone] Apr, Type 2 diabetes mellitus with diabetic polyneuropathy E11.42 [facility] [address] [place] [address] [id number] Mar, [facility] [address] [place] [address] [id number] Mar, Type 2 diabetes mellitus with diabetic polyneuropathy E11.42 [facility] [address] [place] [address] [id number] February, Type 2 diabetes mellitus with diabetic polyneuropathy E11.42 [place] [id number] [place] [address] [id number] February, Type 2 diabetes mellitus with diabetic polyneuropathy E11.42 [place] [id number] [place] [address] [id number] February, Type 2 diabetes mellitus with diabetic polyneuropathy E11.42 and Hypercholesteremia E78.[address] [place] [address] [id number] Jan, Type 2 diabetes mellitus with diabetic polyneuropathy E11.[address] [place] [address] [phone] Jan, Type 2 diabetes mellitus with diabetic polyneuropathy E11.42 IMMUNIZATIONS No Known Immunizations SOCIAL HISTORY Never Assessed REASON FOR VISIT Repository Medication PLAN OF CARE VITAL SIGNS MEDICATIONS Medication Instructions Dosage Frequency Start Date End Date Duration Status Gabapentin 600 MG Orally Three times a day 1 capsule 8h Jan, 90 days Active Pantoprazole Sodium 40 MG Orally Once a day 1 tablet 24h 15 May, 2017 90 days Active MetFORMIN HCl ER 500 mg Orally twice a day 2 tabs 12h 10 Jul, 2016 Active Clopidogrel Bisulfate 75 MG Orally Once [...] stents to the right coronary artery by [facility] 05/31/17 Hospitalization History ER Visit for increased heart rate and elevated blood sugar 08/2015 Hospitalization History Had tooth extracted and became septic, was in hospital for several days. 1999 Hospitalization History [facility] discharge dx PAD,CAD, and SVT. Pt has f/u scheduled with 06/0205/31/2016 Hospitalization History PSVT, Hypotension, CAD-[facility] 03/13/18
--- OUTSIDE RECORDS SUMMARY | 2019-03-03 11:23 | XMS REPORT ---
Author Author ESTRELLITA PANDYA Organization [facility] Address [address] [place] [address] Care Team Providers Care Crumb Packer Name Role Phone ESTRELLITA PANDYA Unavailable PROBLEMS Type Condition ICD9-CM Code NIV16-QG Code Onset Dates Condition Status SNOMED Code Problem PAD (peripheral artery disease) I73.9 Active 425354650 Problem Chronic ischemic heart disease I25.9 Active 064534270 Problem Chronic GERD K21.9 Active 940492435 Problem PSVT (paroxysmal supraventricular tachycardia) I47.1 Active 23739402 Problem COPD exacerbation J44.1 Active 720213844 Problem Chronic obstructive pulmonary disease, unspecified COPD type J44.9 Active 82628178 Problem Hematochezia K92.1 Active 208185291057187 Problem Degenerative disc disease, lumbar M51.36 Active 06524179 Problem Mixed hyperlipidemia E78.2 Active 897511105 Problem Hypercholesteremia E78.0 Active 99035345 Problem Hydrocele, unspecified hydrocele type N43.3 Active 86135701 Problem Abscess L02.91 Active 702252790 Problem 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 17185748 Problem Hypertension, unspecified type I10 Active 94628686 ALLERGIES Substance Reaction Event Type Date Status Penicillin V Potassium rash Drug Allergy Jan, Active ENCOUNTERS Encounter Location Date Diagnosis [facility] [address] [facility] [id number] [address] May, [facility] [id number] [address] Apr, [facility] [id number] [address] Apr, Type 2 diabetes mellitus with diabetic polyneuropathy E11.42 and Chronic GERD K21.9 [facility] [id number] [address] Mar, [facility] [address] [address] Mar, [facility] [address] [address] Mar, [facility] [id number] [address] Mar, Hypercholesteremia E78.0 ; Chronic obstructive pulmonary disease, unspecified COPD type J44.9 and PSVT (paroxysmal supraventricular tachycardia) I47.1 [facility] [address] [id number] [address] Mar, Type 2 diabetes mellitus with diabetic polyneuropathy E11.42 [facility] [address] [id number] [address] February, [facility] [id number] [place] [address] February, PSVT (paroxysmal supraventricular tachycardia) I47.1 [facility] [address] [address] February, COPD exacerbation J44.1 [facility] [id number] [address] February, COPD exacerbation J44.1 [facility] [address] [address] February, [facility] [address] [address] February, [facility] [address] [address] February, Type 2 diabetes mellitus with diabetic polyneuropathy E11.42 and Chronic obstructive pulmonary disease, unspecified COPD type J44.9 [facility] [address] [address] February, [facility] [id number] [place] [address] Jan, Type 2 diabetes mellitus with diabetic polyneuropathy E11.42 and Chronic GERD K21.9 [facility] [facility] [id number] [place] [address] Jan, Type 2 diabetes mellitus with diabetic polyneuropathy E11.42 ; Mixed hyperlipidemia E78.2 ; Chronic obstructive pulmonary disease, unspecified COPD type J44.9 ; Hematochezia K92.1 and Degenerative disc disease, lumbar M51.36 [address] [place] [id number] Jan, Chronic ischemic heart disease I25.9 [facility] [facility] [id number] [place] [address] Jan, PAD (peripheral artery disease) I73.9 and Type 2 diabetes mellitus with diabetic polyneuropathy E11.42 [facility] [id number] [place] [address] Dec, Type 2 diabetes mellitus with diabetic polyneuropathy E11.42 ; Hematochezia K92.1 ; PAD (peripheral artery disease) I73.9 ; Chronic ischemic heart disease I25.9 and Weakness of left lower extremity R29.898 [facility] [id number] [place] [address]- [address] Dec, Type 2 diabetes mellitus with diabetic polyneuropathy E11.42 [facility] [id number] [place] [address] Nov, Type 2 diabetes mellitus with diabetic polyneuropathy E11.42 and PAD (peripheral artery disease) I73.9 [facility] [facility] [id number] [place] [address]- 67[address] Oct, Type 2 diabetes mellitus with diabetic polyneuropathy E11.42 [address] [id number] Oct, Type 2 diabetes mellitus with diabetic polyneuropathy E11.42 [facility] [id number] [address] Oct, Type 2 diabetes mellitus with diabetic polyneuropathy E11.42 and Chronic GERD K21.9 [facility] [address] [place] [address] Oct, Chronic GERD K21.9 [facility] [address] [address] Sep, [facility] [id number] [place] [address]- [address] Sep, [facility] [address] [place] [address]- 5162 Sep, Type 2 diabetes mellitus with diabetic polyneuropathy E11.42 [facility] [address] [place] [address]- [address]99 Aug, [facility] [id number] [place] [address]- [address] Aug, [facility] [id number] [place] [address] 8[address]- [address]8 Aug, [facility] [id number] [place] [address]- 6[address] Aug, Type 2 diabetes mellitus with diabetic polyneuropathy E11.42 [facility] [address] [address] Jul, Type 2 diabetes mellitus with diabetic polyneuropathy E11.42 ; Chronic GERD K21.9 ; Hypercholesteremia E78.0 and PAD (peripheral artery disease) I73.9 [facility] [address] [address] Jul, Type 2 diabetes mellitus with diabetic polyneuropathy E11.42 [facility] [address] [address] Jul, [address] [id number] Jul, [facility] [address] [address] Jul, Type 2 diabetes mellitus with diabetic polyneuropathy E11.42 [facility] [id number] [place] [address]- [address] Jul, [facility] [id number] [place] [id number] Jul, Mixed hyperlipidemia E78.2 ; Hypertension, unspecified type I10 ; PAD ( peripheral artery disease) I73.9 and Chronic ischemic heart disease I25.9 [facility] [address] [place] [address]- 4427 Jun, Type 2 diabetes mellitus with diabetic polyneuropathy E11.42 [facility] [address] [place] [address] 00275- 9513 Jun, Type 2 diabetes mellitus with diabetic polyneuropathy E11.42 [facility] [id number] [place] [address] [id number] Jun, [facility] [address] [place] [address]47- 5431 Jun, Type 2 diabetes mellitus with diabetic polyneuropathy E11.42 ; PAD (peripheral artery disease) I73.9 ; Hypercholesteremia E78.0 and Hypertension, unspecified type I10 [facility] [id number] [place] [address] [id number] Jun, Type 2 diabetes mellitus with diabetic polyneuropathy E11.42 [facility] [address] [place] [address]- [address]32 May, [facility] [address], [place] [address] May, [facility] [id number] [place] [address] [id number] Apr, Abscess L02.91 [facility] [id number] [place] [address] [id number] Apr, [facility] [id number] [place] [address] [id number] Apr, Dental caries K02.9 and Dental examination Z01.[address] [facility] [address] [id number] [place] [id number] Apr, Type 2 diabetes mellitus with diabetic polyneuropathy E11.[address] [id number] [place] [id number] Mar, Type 2 diabetes mellitus with diabetic polyneuropathy E11.[id number] [address], [place] [id number] Mar, Abscess L02.91 and Type 2 diabetes mellitus with diabetic polyneuropathy E11.[id number], [place] [id number] February, Abscess L02.[id number], [place] [id number] Jan, [facility] [address] [id number] [place] [id number] Jan, Type 2 diabetes mellitus with diabetic polyneuropathy E11.[id number] [address], [place] [id number] Jan, [facility] [address] [id number] [place] [id number] Jan, Abscess L02.[address] [id number] [place] [id number] Dec, Type 2 diabetes mellitus with diabetic polyneuropathy E11.[id number] [address], [place] [id number] Nov, Type 2 diabetes mellitus with diabetic polyneuropathy E11.[address] [id number] [place] [id number] Oct, Type 2 diabetes mellitus with diabetic polyneuropathy E11.[address] [id number] [place] [id number] Oct, Type 2 diabetes mellitus with diabetic polyneuropathy E11.[address] [id number] [place] [id number] Oct, Type 2 diabetes mellitus with diabetic polyneuropathy E11.42 and Hydrocele , unspecified hydrocele type N43.3 [facility] [address] [id number] [id number] Sep, Enlarged testicle N50.89 [facility] [id number] [place] [address] [id number] Sep, Enlarged testicle N50.89 [facility] [id number] [place] [address] [id number] Sep, Type 2 diabetes mellitus with diabetic polyneuropathy E11.42 [facility] [id number] [place] [address] [id number] Sep, [facility] [id number] [place] [address] [id number] Aug, Dyspepsia R10.13 and Type 2 diabetes mellitus with diabetic polyneuropathy E11.42 [facility] [id number] [place] [address] [id number] Jul, [facility] [id number] [place] [address] [id number] Jul, Type 2 diabetes mellitus with diabetic polyneuropathy E11.42 and Dyspepsia R10.13 [facility] [id number] [place] [address] [id number] Jun, [facility] [id number] [place] [address] [id number] Jun, [facility] [id number] [place] [address] [id number] Jun, Type 2 diabetes mellitus with diabetic polyneuropathy E11.42 and Boils L02.92 [facility] [id number] [place] [address] [id number] May, Type 2 diabetes mellitus with diabetic polyneuropathy E11.42 [facility] [id number] [place] [address] [id number] May, Type 2 diabetes mellitus with diabetic polyneuropathy E11.42 and Bloating R14.0 [facility] [address] [id number] [id number] Apr, [address] [id number] Apr, [facility] [address] [id number] [id number] Apr, Type 2 diabetes mellitus with diabetic polyneuropathy E11.[address] [facility] [address] [id number] [id number] Mar, [facility] [address] [id number] [id number] Mar, Type 2 diabetes mellitus with diabetic polyneuropathy E11.[address] [facility] [address] [id number] [id number] February, Type 2 diabetes mellitus with diabetic polyneuropathy E11.[address] [facility] [address] [id number] [id number] February, Type 2 diabetes mellitus with diabetic polyneuropathy E11.42 [facility] [place] [address] [id number] [id number] February, Type 2 diabetes mellitus with diabetic polyneuropathy E11.42 and Hypercholesteremia E78.0 [facility] [place] [address] [id number] [id number] Jan, Type 2 diabetes mellitus with diabetic polyneuropathy E11.42 [facility] [place] [id number] [id number] Jan, Type 2 diabetes mellitus with diabetic polyneuropathy E11.42 IMMUNIZATIONS No Known Immunizations SOCIAL HISTORY Never Assessed REASON FOR VISIT Diabetes WB-MA, Test results f/u PLAN OF CARE Activity Details Follow Up 3 Months Reason:COPD/CAD VITAL SIGNS Height 66.0 in 2018-02-09 Weight 196 lbs 2018-02-09 Temperature 97.9 degrees Fahrenheit 2018-02-09 Heart Rate 80 bpm 2018-02-09 Respiratory Rate 20 2018-02-09 BMI 31.63 kg/m2 2018-02-09 Blood pressure systolic 142 mmHg 2018-02-09 Blood pressure diastolic 86 mmHg 2018-02-09 MEDICATIONS Medication Instructions Dosage Frequency Start Date End Date Duration Status Crestor 40 mg Orally Once a day 1 tablet 24h 13 Jun, 2017 90 days Active MetFORMIN HCl ER 500 mg Orally twice a day 2 tabs 12h Jul, 30 days Active Metoprolol Succinate ER 25 MG Orally Once a day 1 tablet 24h 29 Jun, 2017 90 days Active Lisinopril 10 mg Orally Once a day 1 tablet 24h 90 days Active Accu-Chek Britt glucometer as directed Jan, Active Tradjenta 5 mg Orally Once a day 1 tablet 24h 23 Jan, 2018 90 days Active Pantoprazole Sodium 40 MG Orally Once a day 1 tablet 24h 15 May, 2017 90 days Active Lantus 100 UNIT/ML Subcutaneous 2 times a day 28 units 12h Mar, 90 days Active Lyrica 50 mg Orally Twice a day 1 capsule 12h Oct, 30 days Active Gabapentin 600 MG Orally Three times a day 1 capsule 8h Jan, 30 days Active Accu-Chek Britt test strips as directed 8h Jan, Active Advair Diskus 250-50 MCG/DOSE Inhalation Twice a day 1 puff 12h Jan, 90 days Active Clopidogrel Bisulfate 75 MG Orally Once a day 1 tablet 24h 90 days Active BD Pen Needle Nancy U/F BD PEN NEEDLE NANCY subcutaneous 2 times a day as directed February, Active BD Insulin Syringe 30G X 1/2 subcutaneously with insulin doses Use as directed Jun, Active RESULTS No Results PROCEDURES Procedure Date Ordered Result Body Site GLYCATED HEMOGLOBIN TEST February 09, 2018 MICROALBUMIN, SEMIQUANT February 09, 2018 LIPID PANEL February 09, 2018 COMPREHEN METABOLIC PANEL February 09, 2018 INSTRUCTIONS MEDICATIONS ADMINISTERED No Known [...] stents to the right coronary artery by [facility] 05/31/17 Hospitalization History ER Visit for increased heart rate and elevated blood sugar 08/2015 Hospitalization History Had tooth extracted and became septic, was in hospital for several days. 1999 Hospitalization History [facility] discharge dx PAD,CAD, and SVT. Pt has f/u scheduled with 06/0205/31/2016 Hospitalization History PSVT, Hypotension, CAD-[facility] 03/13/18
--- OUTSIDE RECORDS SUMMARY | 2019-03-03 11:24 | XMS REPORT ---
Author Author ESTRELLITA PANDYA Organization [facility] Address [address] [place] [address] Care Team Providers Care Network Systems Analyst Name Role Phone ESTRELLITA PANDYA Unavailable PROBLEMS Type Condition ICD9-CM Code WBS19-YM Code Onset Dates Condition Status SNOMED Code Problem PAD (peripheral artery disease) I73.9 Active 364025388 Problem Chronic ischemic heart disease I25.9 Active 047508908 Problem Chronic GERD K21.9 Active 632073769 Problem PSVT (paroxysmal supraventricular tachycardia) I47.1 Active 94515220 Problem COPD exacerbation J44.1 Active 165901751 Problem Chronic obstructive pulmonary disease, unspecified COPD type J44.9 Active 92666152 Problem Hematochezia K92.1 Active 183457987627646 Problem Degenerative disc disease, lumbar M51.36 Active 31704643 Problem Mixed hyperlipidemia E78.2 Active 946765640 Problem Hypercholesteremia E78.0 Active 67033723 Problem Hydrocele, unspecified hydrocele type N43.3 Active 66899504 Problem Abscess L02.91 Active 334133119 Problem 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 42931474 Problem Hypertension, unspecified type I10 Active 46096184 ALLERGIES No Information ENCOUNTERS Encounter Location Date Diagnosis [place] [id number] [place] [address]55- 0621 Apr, Type 2 diabetes mellitus with diabetic polyneuropathy E11.42 and Chronic GERD K21.9 [facility] [id number] [place] [address] 19841- 2618 Mar, [place] [id number] [place] [address] 30487- 0467 Mar, [place] [address] [place] [id number] [place] [address] 26023- 2841 Mar, [place] [address] [address] Mar, Hypercholesteremia E78.0 ; Chronic obstructive pulmonary disease, unspecified COPD type J44.9 and PSVT (paroxysmal supraventricular tachycardia) I47.1 [facility] [id number] [address] 3656 Mar, Type 2 diabetes mellitus with diabetic polyneuropathy E11.42 [facility] [id number] [place] [address] 24449- 8028 February, [facility] [id number] [place] [address] 70947- 0558 February, PSVT (paroxysmal supraventricular tachycardia) I47.1 [facility] [id number] [place] [address] 34959- 2739 February, COPD exacerbation J44.1 [facility] [id number] [place] [address] 33212- 6371 February, COPD exacerbation J44.1 [facility] [id number] [place] [address] 93274- 8546 February, [facility] [address] [address] February, [facility] [address] [address] February, Type 2 diabetes mellitus with diabetic polyneuropathy E11.42 and Chronic obstructive pulmonary disease, unspecified COPD type J44.9 [facility] [address] [address] February, [facility] [id number] [place] [address] 56977- 5813 Jan, Type 2 diabetes mellitus with diabetic polyneuropathy E11.42 and Chronic GERD K21.9 [facility] [address] [address] 7[address] Jan, Type 2 diabetes mellitus with diabetic polyneuropathy E11.42 ; Mixed hyperlipidemia E78.2 ; Chronic obstructive pulmonary disease, unspecified COPD type J44.9 ; Hematochezia K92.1 and Degenerative disc disease, lumbar M51.36 [address] [place] [address] [id number] Jan, Chronic ischemic heart disease I25.9 [place] [address] [id number] [place] [address] 17834- 8498 Jan, PAD (peripheral artery disease) I73.9 and Type 2 diabetes mellitus with diabetic polyneuropathy E11.42 [place] [address] [id number] [place] [address] 61013- 2613 Dec, Type 2 diabetes mellitus with diabetic polyneuropathy E11.42 ; Hematochezia K92.1 ; PAD (peripheral artery disease) I73.9 ; Chronic ischemic heart disease I25.9 and Weakness of left lower extremity R29.898 [place] [address] [id number] [place] [address] 31994- 7340 Dec, Type 2 diabetes mellitus with diabetic polyneuropathy E11.42 [place] [address] [place] [id number] [place] [address] 05640- 7443 Nov, Type 2 diabetes mellitus with diabetic polyneuropathy E11.42 and PAD (peripheral artery disease) I73.9 [place] [address] [place] [address] [id number] [place] [address] 82489- 4085 Oct, Type 2 diabetes mellitus with diabetic polyneuropathy E11.42 [address] [id number] Oct, Type 2 diabetes mellitus with diabetic polyneuropathy E11.42 [place] [address] [place] [id number] [place] [address] 29491- 0795 Oct, Type 2 diabetes mellitus with diabetic polyneuropathy E11.42 and Chronic GERD K21.9 [place] [address] [place] [id number] [place] [address] 41509- 1071 Oct, Chronic GERD K21.9 [place] [address] [address] 7446 Sep, [facility] [address] Sep, [facility] [address] [address] 3751 Sep, Type 2 diabetes mellitus with diabetic polyneuropathy E11.42 [facility] [address] [place] [address] 30365- 1716 Aug, [facility] [address] [place] [address] 624448- 3876 Aug, [facility] [address] [place] [address] 89629- 2424 Aug, [facility] [address], [place] [address]- 3011 Aug, Type 2 diabetes mellitus with diabetic polyneuropathy E11.42 [facility] [address] [address] 9911 Jul, Type 2 diabetes mellitus with diabetic polyneuropathy E11.42 ; Chronic GERD K21.9 ; Hypercholesteremia E78.0 and PAD (peripheral artery disease) I73.9 [facility] [address] [address]- 6969 Jul, Type 2 diabetes mellitus with diabetic polyneuropathy E11.42 [facility] [address], [place] [address] 1993 Jul, [address] [id number] Jul, [facility] [address], [place] [address]- 5247 Jul, Type 2 diabetes mellitus with diabetic polyneuropathy E11.42 [facility] [address], [place] [address]- 8226 Jul, [facility] [id number] [id number] Jul, Mixed hyperlipidemia E78.2 ; Hypertension, unspecified type I10 ; PAD ( peripheral artery disease) I73.9 and Chronic ischemic heart disease I25.9 [facility] [address] [place] [address] 25590647- 1460 Jun, Type 2 diabetes mellitus with diabetic polyneuropathy E11.42 [facility] [id number] [place] [address] 73947- 3042 Jun, Type 2 diabetes mellitus with diabetic polyneuropathy E11.42 [facility] [id number] [place] [address] [id number] Jun, [facility] [id number] [place] [address] 92634- 3729 Jun, Type 2 diabetes mellitus with diabetic polyneuropathy E11.42 ; PAD (peripheral artery disease) I73.9 ; Hypercholesteremia E78.0 and Hypertension, unspecified type I10 [facility] [id number] [place] [address] [id number] Jun, Type 2 diabetes mellitus with diabetic polyneuropathy E11.42 [place] [address] [id number] [place] [address] 29149- 0002 May, [facility] [id number] [place] [address] 25231- 9590 May, [facility] [id number] [place] [address] [id number] Apr, Abscess L02.91 [facility] [id number] [id number] Apr, [facility] [id number] [place] [address] [phone] Apr, Dental caries K02.9 and Dental examination Z01.20 [facility] [id number] [place] [address] [phone] Apr, Type 2 diabetes mellitus with diabetic polyneuropathy E11.42 [facility] [address] [id number] [place] [address] [id number] Mar, Type 2 diabetes mellitus with diabetic polyneuropathy E11.[address] [facility] [address] [id number] [place] [id number] Mar, Abscess L02.91 and Type 2 diabetes mellitus with diabetic polyneuropathy E11.[address] [facility] [address] [id number] [place] [phone] February, Abscess L02.[address] [address] [id number] [place] [id number] Jan, [facility] [address] [id number] [place] [id number] Jan, Type 2 diabetes mellitus with diabetic polyneuropathy E11.42 [facility] [address] [id number] [place] [phone] Jan, [facility] [address] [id number] [place] [id number] Jan, Abscess L02.[address] [id number] [place] [id number] Dec, Type 2 diabetes mellitus with diabetic polyneuropathy E11.42 [facility] [address] [id number] [place] [id number] Nov, Type 2 diabetes mellitus with diabetic polyneuropathy E11.[address] [facility] [address] [id number] [place] [id number] Oct, Type 2 diabetes mellitus with diabetic polyneuropathy E11.42 [facility] [address] [id number] [place] [phone] Oct, Type 2 diabetes mellitus with diabetic polyneuropathy E11.42 [facility] [address] [id number] [place]ARA[place] [phone] Oct, Type 2 diabetes mellitus with diabetic polyneuropathy E11.42 and Hydrocele , unspecified hydrocele type N43.3 [facility] [address] [id number] [place] [id number] Sep, Enlarged testicle N50.89 [facility] [address] [id number] [place] [id number] Sep, Enlarged testicle N50.89 [facility] [address] [id number] [place]ARA[place] [id number] Sep, Type 2 diabetes mellitus with diabetic polyneuropathy E11.42 [facility] [address] [id number] [place] [id number] Sep, [facility] [id number] [place] [address] [phone] Aug, Dyspepsia R10.13 and Type 2 diabetes mellitus with diabetic polyneuropathy E11.42 [facility] [address] [id number] [place]ARA[place] [phone] Jul, [facility] [id number] [place] [address] [id number] Jul, Type 2 diabetes mellitus with diabetic polyneuropathy E11.42 and Dyspepsia R10.13 [facility] [id number] [place] [address] [id number] Jun, [facility] [id number] [place] [address] [id number] Jun, [facility] [id number] [place] [address] [phone] Jun, Type 2 diabetes mellitus with diabetic polyneuropathy E11.42 and Boils L02.92 [facility] [id number] [place] [address] [phone] May, Type 2 diabetes mellitus with diabetic polyneuropathy E11.42 [facility] [address] [id number] [place]ARA[place] [id number] May, Type 2 diabetes mellitus with diabetic polyneuropathy E11.42 and Bloating R14.0 [facility] [address] [id number] [place]ARA[place] [id number] Apr, [address] [id number] [phone] Apr, [facility] [address] [id number] [place]ARA[place] [id number] Apr, Type 2 diabetes mellitus with diabetic polyneuropathy E11.42 [facility] [id number] [place] [address] [id number] Mar, [facility] [address] [facility] [id number] [place]ARA[place] [id number] Mar, Type 2 diabetes mellitus with diabetic polyneuropathy E11.42 [facility] [id number] [place] [phone] February, Type 2 diabetes mellitus with diabetic polyneuropathy E11.42 [facility] [id number] [place] [id number] February, Type 2 diabetes mellitus with diabetic polyneuropathy E11.42 [facility] [id number] [place]ARA[place] [id number] February, Type 2 diabetes mellitus with diabetic polyneuropathy E11.42 and Hypercholesteremia E78.0 [facility] [address] [place] [address] [id number] Jan, Type 2 diabetes mellitus with diabetic polyneuropathy E11.42 [facility] [address] [id number] Jan, Type 2 diabetes mellitus with diabetic polyneuropathy E11.42 IMMUNIZATIONS No Known Immunizations SOCIAL HISTORY Never Assessed REASON FOR VISIT PALS Lantus PLAN OF CARE VITAL SIGNS MEDICATIONS Medication Instructions Dosage Frequency Start Date End Date Duration Status Lantus 100 UNIT/ML Subcutaneous 2 times a day 28 units 12h Mar, 90 days Active RESULTS No Results PROCEDURES [...] stents to the right coronary artery by [facility] 05/31/17 Hospitalization History ER Visit for increased heart rate and elevated blood sugar 08/2015 Hospitalization History Had tooth extracted and became septic, was in hospital for several days. 1999 Hospitalization History [facility] discharge dx PAD,CAD, and SVT. Pt has f/u scheduled with 06/0205/31/2016 Hospitalization History PSVT, Hypotension, CAD-[facility] 03/13/18
--- OUTSIDE RECORDS SUMMARY | 2019-03-03 11:24 | XMS REPORT ---
Author Author ESTRELLITA PANDYA Organization [facility], [place] Address [address] 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 Role Phone ESTRELLITA PANDYA Unavailable PROBLEMS Type Condition ICD9-CM Code RAM51-NX Code Onset Dates Condition Status SNOMED Code Problem PAD (peripheral artery disease) I73.9 Active 601733562 Problem Chronic ischemic heart disease I25.9 Active 070050974 Problem Chronic GERD K21.9 Active 693537489 Problem PSVT (paroxysmal supraventricular tachycardia) I47.1 Active 00285438 Problem COPD exacerbation J44.1 Active 793052441 Problem Chronic obstructive pulmonary disease, unspecified COPD type J44.9 Active 95713095 Problem Hematochezia K92.1 Active 314289401674191 Problem Degenerative disc disease, lumbar M51.36 Active 52864898 Problem Mixed hyperlipidemia E78.2 Active 245491461 Problem Hypercholesteremia E78.0 Active 46774886 Problem Hydrocele, unspecified hydrocele type N43.3 Active 99409014 Problem Abscess L02.91 Active 340138224 Problem 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 54631111 Problem Hypertension, unspecified type I10 Active 20311475 ALLERGIES No Information ENCOUNTERS Encounter Location Date Diagnosis [facility], [place] [id number] [place] [address]85- [address] May, [facility], [place] [address] [address] Apr, [facility] [id number] [place] [address] 65231- 8597 Apr, Type 2 diabetes mellitus with diabetic polyneuropathy E11.42 and Chronic GERD K21.9 [facility] [facility] [address] [place] [id number] [address] Mar, [facility] [address] [address] Mar, [facility] [place] [id number] [place] [address] 34558- 8493 Mar, [facility] [place] [id number] [place] [address] Mar, Hypercholesteremia E78.0 ; Chronic obstructive pulmonary disease, unspecified COPD type J44.9 and PSVT (paroxysmal supraventricular tachycardia) I47.1 [facility] [place] [id number] [place] [address] Mar, Type 2 diabetes mellitus with diabetic polyneuropathy E11.42 [facility] [place] [id number] [place] [address] 36370- 3908 February, [facility] [place] [id number] [place] [address] 36269- 0408 February, PSVT (paroxysmal supraventricular tachycardia) I47.1 [facility] [place] [address] [address] February, COPD exacerbation J44.1 [facility] [place] [id number] [place] [address] 96151- 8864 February, COPD exacerbation J44.1 [facility] [place] [address] [place] [address] February, [facility] [place] [address] [place] [address] February, [facility] [place] [address] [place] [address] February, Type 2 diabetes mellitus with diabetic polyneuropathy E11.42 and Chronic obstructive pulmonary disease, unspecified COPD type J44.9 [facility] [place] [address] [address] February, [facility] [place] [id number] [place] [address] Jan, Type 2 diabetes mellitus with diabetic polyneuropathy E11.42 and Chronic GERD K21.9 [facility] [facility] [id number] [place] [address] 32301- 9617 Jan, Type 2 diabetes mellitus with diabetic polyneuropathy E11.42 ; Mixed hyperlipidemia E78.2 ; Chronic obstructive pulmonary disease, unspecified COPD type J44.9 ; Hematochezia K92.1 and Degenerative disc disease, lumbar M51.36 [place] [id number] [place] [address] [id number] Jan, Chronic ischemic heart disease I25.9 [facility] [address] [address] Jan, PAD (peripheral artery disease) I73.9 and Type 2 diabetes mellitus with diabetic polyneuropathy E11.42 [facility] [address] [address]863- 2310 Dec, Type 2 diabetes mellitus with diabetic polyneuropathy E11.42 ; Hematochezia K92.1 ; PAD (peripheral artery disease) I73.9 ; Chronic ischemic heart disease I25.9 and Weakness of left lower extremity R29.898 [facility] [facility] [id number] [place] [address] 79056- 8011 Dec, Type 2 diabetes mellitus with diabetic polyneuropathy E11.42 [facility] [facility] [id number] [place] [address] 95910- 3497 Nov, Type 2 diabetes mellitus with diabetic polyneuropathy E11.42 and PAD (peripheral artery disease) I73.9 [facility] [facility] [id number] [place] [address] 70816- 1633 Oct, Type 2 diabetes mellitus with diabetic polyneuropathy E11.42 [address] [place] [address] [id number] Oct, Type 2 diabetes mellitus with diabetic polyneuropathy E11.42 [facility] [id number] [place] [address] 32979- 8102 Oct, Type 2 diabetes mellitus with diabetic polyneuropathy E11.42 and Chronic GERD K21.9 [facility] [place] [address] [address]- 2216 Oct, Chronic GERD K21.9 [facility], [place] [address] [address] 9080 Sep, [facility] [place] [address] [place] [address] 93971- 8635 Sep, [facility] [place] [address] [place] [address] 60096- 2137 Sep, Type 2 diabetes mellitus with diabetic polyneuropathy E11.42 [facility] [place] [address] [place] [address] 23565- 2946 Aug, [facility] [place] [id number] [place] [address] 81583- 8267 Aug, [facility] [place] [address] [place] [address] 41921- 1468 Aug, [facility] [place] [address] [place] [address] 70378- 7829 Aug, Type 2 diabetes mellitus with diabetic polyneuropathy E11.42 [facility] [place] [address] [address]- 4634 Jul, Type 2 diabetes mellitus with diabetic polyneuropathy E11.42 ; Chronic GERD K21.9 ; Hypercholesteremia E78.0 and PAD (peripheral artery disease) I73.9 [facility] [place] [address] [address]- 1732 Jul, Type 2 diabetes mellitus with diabetic polyneuropathy E11.42 [facility] [place] [address] [address]- 0961 Jul, [address] [id number] Jul, [facility] [place] [address] [place] [address] 82201- 8280 Jul, Type 2 diabetes mellitus with diabetic polyneuropathy E11.42 [facility] [place] [address] [place] [address] 28818- 5135 Jul, [facility] [id number] [place] [address] [id number] Jul, Mixed hyperlipidemia E78.2 ; Hypertension, unspecified type I10 ; PAD ( peripheral artery disease) I73.9 and Chronic ischemic heart disease I25.9 [facility] [place] [id number] [place] [address] 58826- 8779 Jun, Type 2 diabetes mellitus with diabetic polyneuropathy E11.42 [facility] [place] [id number] [place] [address] 23170- 3543 Jun, Type 2 diabetes mellitus with diabetic polyneuropathy E11.42 [facility] [address] [place] [address] [id number] Jun, [facility] [place] [address] [place] [address] 62426- 8931 Jun, Type 2 diabetes mellitus with diabetic polyneuropathy E11.42 ; PAD (peripheral artery disease) I73.9 ; Hypercholesteremia E78.0 and Hypertension, unspecified type I10 [facility] [id number] [place] [address] [id number] Jun, Type 2 diabetes mellitus with diabetic polyneuropathy E11.42 [facility] [place] [address] [place] [address] 61520- 0486 May, [facility] [place] [address] [address]- 5697 May, [facility] [id number] [place] [address] [id number] Apr, Abscess L02.91 [facility] [address] [place] [address] [id number] Apr, [facility] [id number] [place] [address] [id number] 14 Dominic, 2017 Dental caries K02.9 and Dental examination Z01.[address] [facility] [address] [id number] [place] [id number] Apr, Type 2 diabetes mellitus with diabetic polyneuropathy E11.[address] [facility] [id number] RD, [place] [id number] Mar, Type 2 diabetes mellitus with diabetic polyneuropathy E11.[address] [facility] [id number] [place] [id number] Mar, Abscess L02.91 and Type 2 diabetes mellitus with diabetic polyneuropathy E11.[address] [facility] [id number] [address], [place] [id number] February, Abscess L02.[id number] RD, [place] [id number] Jan, [facility] [address] [id number] [place] [id number] Jan, Type 2 diabetes mellitus with diabetic polyneuropathy E11.[address] [facility] [id number] [place] [id number] Jan, [facility] [address] [id number] RD, [place] [id number] Jan, Abscess L02.[address] [id number] [place] [id number] Dec, Type 2 diabetes mellitus with diabetic polyneuropathy E11.[address] [id number] [place] [id number] Nov, Type 2 diabetes mellitus with diabetic polyneuropathy E11.[address] [id number] [place] [id number] Oct, Type 2 diabetes mellitus with diabetic polyneuropathy E11.[address] [id number] [place] [id number] Oct, Type 2 diabetes mellitus with diabetic polyneuropathy E11.[address] [id number] [place] [id number] Oct, Type 2 diabetes mellitus with diabetic polyneuropathy E11.42 and Hydrocele , unspecified hydrocele type N43.[address] [facility] [address] [id number][place] [id number] Sep, Enlarged testicle N50.89 [facility] [id number] [place] [address] [id number] Sep, Enlarged testicle N50.89 [facility] [address] [id number], [place] [id number] Sep, Type 2 diabetes mellitus with diabetic polyneuropathy E11.[address] [facility] [id number] [place] [address] [id number] Sep, [facility] [place] [address] [id number][place] [id number] Aug, Dyspepsia R10.13 and Type 2 diabetes mellitus with diabetic polyneuropathy E11.42 [facility] [place] [address] [id number][place] [id number] Jul, [facility] [place] [id number] [place] [address] [id number] Jul, Type 2 diabetes mellitus with diabetic polyneuropathy E11.42 and Dyspepsia R10.13 [facility] [place] [address] [id number][place] [id number] Jun, [facility] [place] [id number] [place] [address] [id number] Jun, [facility] [place] [address] [id number][place] [id number] Jun, Type 2 diabetes mellitus with diabetic polyneuropathy E11.42 and Boils L02.92 [facility] [address] [id number][place] [id number] May, Type 2 diabetes mellitus with diabetic polyneuropathy E11.42 [facility] [place] [address] [id number][place] [id number] May, Type 2 diabetes mellitus with diabetic polyneuropathy E11.42 and Bloating R14.0 [facility] [place] [address] [id number], [place] [id number] Apr, [address] [id number] [phone] Apr, [facility] [address] [id number][place] [id number] Apr, Type 2 diabetes mellitus with diabetic polyneuropathy E11.42 [address] [place] [address] [id number] Mar, [address] [place] [address] [id number] Mar, Type 2 diabetes mellitus with diabetic polyneuropathy E11.42 [address] [place] [address] [id number] February, Type 2 diabetes mellitus with diabetic polyneuropathy E11.42 [address] [place] [address] [id number] February, Type 2 diabetes mellitus with diabetic polyneuropathy E11.42 [address] [place] [address] [id number] February, Type 2 diabetes mellitus with diabetic polyneuropathy E11.42 and Hypercholesteremia E78.0 [address] [place] [address] [id number] Jan, Type 2 diabetes mellitus with diabetic polyneuropathy E11.42 [address] [place] [address] [id number] Jan, Type 2 diabetes mellitus with diabetic polyneuropathy E11.42 IMMUNIZATIONS No Known Immunizations SOCIAL HISTORY Never Assessed REASON FOR VISIT med refill PLAN OF CARE VITAL SIGNS MEDICATIONS Medication Instructions Dosage Frequency Start Date End Date Duration Status Gabapentin 600 MG Orally Three times a day 1 capsule 8h Jan, 30 days Active MetFORMIN HCl ER 500 mg Orally twice a day 2 tabs 12h Jul, 30 days Active Crestor 40 mg Orally Once a day 1 tablet 24h 13 Jun, 2017 90 days Active Lisinopril 10 mg Orally Once a day 1 tablet 24h 90 days Active Lyrica 50 mg Orally [...] to the right coronary artery by [facility] 05/31/17 Hospitalization History ER Visit for increased heart rate and elevated blood sugar 08/2015 Hospitalization History Had tooth extracted and became septic, was in hospital for several days. [address] [facility] discharge dx PAD,CAD, and SVT. Pt has f/u scheduled with 06/0205/31/2016 Hospitalization History PSVT, Hypotension, CAD-[facility] 03/13/18
--- OUTSIDE RECORDS SUMMARY | 2019-03-03 11:24 | XMS REPORT ---
Author Author ESTRELLITA PANDYA Organization [facility] Address [address] 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 Role Phone ESTRELLITA PANDYA Unavailable PROBLEMS Type Condition ICD9-CM Code YEI96-VM Code Onset Dates Condition Status SNOMED Code Problem PAD (peripheral artery disease) I73.9 Active 327193025 Problem Chronic ischemic heart disease I25.9 Active 668649815 Problem Chronic GERD K21.9 Active 869931793 Problem PSVT (paroxysmal supraventricular tachycardia) I47.1 Active 18997503 Problem COPD exacerbation J44.1 Active 995352163 Problem Chronic obstructive pulmonary disease, unspecified COPD type J44.9 Active 64420193 Problem Hematochezia K92.1 Active 306623460032389 Problem Degenerative disc disease, lumbar M51.36 Active 95055711 Problem Mixed hyperlipidemia E78.2 Active 461682661 Problem Hypercholesteremia E78.0 Active 33981953 Problem Hydrocele, unspecified hydrocele type N43.3 Active 79080375 Problem Abscess L02.91 Active 571392678 Problem 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 03218021 Problem Hypertension, unspecified type I10 Active 05092862 ALLERGIES No Information ENCOUNTERS Encounter Location Date Diagnosis [facility] [id number] [place] [address] May, [facility] [address], [place] [address] Apr, [place] [id number] [place] [id number] [place] [address]661- 2410 Apr, Type 2 diabetes mellitus with diabetic polyneuropathy E11.42 and Chronic GERD K21.9 [place] [address] [place] [id number] [address] Mar, [place] [address] [address] Mar, [facility] [id number] [place] [address] 61835- 8267 Mar, [facility] [id number] [address] Mar, Hypercholesteremia E78.0 ; Chronic obstructive pulmonary disease, unspecified COPD type J44.9 and PSVT (paroxysmal supraventricular tachycardia) I47.1 [facility] [id number] [address] Mar, Type 2 diabetes mellitus with diabetic polyneuropathy E11.42 [facility] [id number] [place] [address]27- 1286 February, [facility] [id number] [place] [address] 98752- 2629 February, PSVT (paroxysmal supraventricular tachycardia) I47.1 [facility] [address] [address] February, COPD exacerbation J44.1 [facility] [id number] [place] [address] 86652- 1207 February, COPD exacerbation J44.1 [facility] [address] [address] February, [facility] [address] [address] February, [facility] [address] [address] February, Type 2 diabetes mellitus with diabetic polyneuropathy E11.42 and Chronic obstructive pulmonary disease, unspecified COPD type J44.9 [facility] [address] [address] February, [facility] [id number] [address] Jan, Type 2 diabetes mellitus with diabetic polyneuropathy E11.42 and Chronic GERD K21.9 [place] [address] [id number] [place] [address] 58944- 8752 Jan, Type 2 diabetes mellitus with diabetic polyneuropathy E11.42 ; Mixed hyperlipidemia E78.2 ; Chronic obstructive pulmonary disease, unspecified COPD type J44.9 ; Hematochezia K92.1 and Degenerative disc disease, lumbar M51.36 [place] [id number] [place] [address] [id number] Jan, Chronic ischemic heart disease I25.9 [place] [address] [address]- [address] Jan, PAD (peripheral artery disease) I73.9 and Type 2 diabetes mellitus with diabetic polyneuropathy E11.42 [place] [address] [address]- [address]35 Dec, Type 2 diabetes mellitus with diabetic polyneuropathy E11.42 ; Hematochezia K92.1 ; PAD (peripheral artery disease) I73.9 ; Chronic ischemic heart disease I25.9 and Weakness of left lower extremity R29.898 [place] [address] [place] [id number] [place] [address] 07062- 0492 Dec, Type 2 diabetes mellitus with diabetic polyneuropathy E11.42 [place] [address] [place] [id number] [place] [address] 63049- 7868 Nov, Type 2 diabetes mellitus with diabetic polyneuropathy E11.42 and PAD (peripheral artery disease) I73.9 [place] [address] [place] [id number] [place] [address] 46663- 1654 Oct, Type 2 diabetes mellitus with diabetic polyneuropathy E11.42 [address] [place] [address] [id number] Oct, Type 2 diabetes mellitus with diabetic polyneuropathy E11.42 [place] [address] [place] [id number] [place] [address] 35925- 5558 Oct, Type 2 diabetes mellitus with diabetic polyneuropathy E11.42 and Chronic GERD K21.9 [facility] [address], [place] [address] 9[address] Oct, Chronic GERD K21.9 [facility] [address], [place] [address] Sep, [facility] [address] [place] [address] 91520- 7813 Sep, [facility] [address] [place] [address] 22902- 5985 Sep, Type 2 diabetes mellitus with diabetic polyneuropathy E11.42 [facility] [address] [place] [address] 58613- 8604 Aug, [facility] [address] [place] [address] [id number] [place] [address] 15502- 7142 Aug, [facility] [id number] [place] [address] 52065- 3727 Aug, [facility] [address] [place] [address] 00147- 1896 Aug, Type 2 diabetes mellitus with diabetic polyneuropathy E11.42 [facility] [address], [place] [address]- 27[address] Jul, Type 2 diabetes mellitus with diabetic polyneuropathy E11.42 ; Chronic GERD K21.9 ; Hypercholesteremia E78.0 and PAD (peripheral artery disease) I73.9 [facility] [address], [place] [address]- [address]85 Jul, Type 2 diabetes mellitus with diabetic polyneuropathy E11.42 [facility] [address], [place] [address] Jul, [address] [id number] Jul, [facility] [address] [place] [address] 44135- 7275 Jul, Type 2 diabetes mellitus with diabetic polyneuropathy E11.42 [facility] [address] [place] [address] 99888- 2179 Jul, [facility] [id number] [place] [address] [id number] Jul, Mixed hyperlipidemia E78.2 ; Hypertension, unspecified type I10 ; PAD ( peripheral artery disease) I73.9 and Chronic ischemic heart disease I25.9 [facility] [address] [id number] [place] [address] 24360- 0470 Jun, Type 2 diabetes mellitus with diabetic polyneuropathy E11.42 [facility] [address] [id number] [place] [address] 36311- 9368 Jun, Type 2 diabetes mellitus with diabetic polyneuropathy E11.42 [facility] [address] [place] [address] [phone] Jun, [facility] [address] [place] [address] 11809- 5246 Jun, Type 2 diabetes mellitus with diabetic polyneuropathy E11.42 ; PAD (peripheral artery disease) I73.9 ; Hypercholesteremia E78.0 and Hypertension, unspecified type I10 [facility] [id number] [place] [address] [id number] Jun, Type 2 diabetes mellitus with diabetic polyneuropathy E11.42 [facility] [address] [place] [address] 08982- 9246 May, [facility] [address], [place] [address]- 1291 May, [facility] [id number] [place] [address] [id number] Apr, Abscess L02.91 [facility] [address] [place] [address] [id number] Apr, [facility] [id number] [place] [address] [phone] 14 Dominic, 2017 Dental caries K02.9 and Dental examination Z01.[address] [facility] [address] [id number] [place] [id number] Apr, Type 2 diabetes mellitus with diabetic polyneuropathy E11.[id number] RD, [place] [id number] Mar, Type 2 diabetes mellitus with diabetic polyneuropathy E11.[address] [id number] [place] [id number] Mar, Abscess L02.91 and Type 2 diabetes mellitus with diabetic polyneuropathy E11.[id number] [address], [place] [id number] February, Abscess L02.[id number] [address], [place] [id number] Jan, [facility] [address] [id number] [place] [id number] Jan, Type 2 diabetes mellitus with diabetic polyneuropathy E11.[address] [id number] [place] [id number] Jan, [facility] [id number] RD, [place] [id number] Jan, Abscess L02.[address] [id number] [place] [id number] Dec, Type 2 diabetes mellitus with diabetic polyneuropathy E11.[address] [id number] [place] [id number] Nov, Type 2 diabetes mellitus with diabetic polyneuropathy E11.[address] [id number] [place] [id number] Oct, Type 2 diabetes mellitus with diabetic polyneuropathy E11.[address] [id number] [place] [id number] Oct, Type 2 diabetes mellitus with diabetic polyneuropathy E11.[address] [id number] [place] [id number] Oct, Type 2 diabetes mellitus with diabetic polyneuropathy E11.42 and Hydrocele , unspecified hydrocele type N43.[address] [facility] [id number] [phone] Sep, Enlarged testicle N50.89 [facility] [place] [id number] [place] [address] [id number] Sep, Enlarged testicle N50.89 [facility] [place] [address] [id number][place] [id number] Sep, Type 2 diabetes mellitus with diabetic polyneuropathy E11.42 [facility] [id number] [place] [address] [id number] Sep, [facility] [place] [address] [id number][place] [id number] Aug, Dyspepsia R10.13 and Type 2 diabetes mellitus with diabetic polyneuropathy E11.42 [facility] [place] [address] [id number][place] [id number] Jul, [facility] [place] [id number] [place] [address] [id number] Jul, Type 2 diabetes mellitus with diabetic polyneuropathy E11.42 and Dyspepsia R10.13 [facility] [place] [address] [id number][place] [phone] Jun, [facility] [place] [id number] [place] [address] [id number] Jun, [facility] [place] [address] [id number][place] [id number] Jun, Type 2 diabetes mellitus with diabetic polyneuropathy E11.42 and Boils L02.92 [facility] [address] [id number][place] [phone] May, Type 2 diabetes mellitus with diabetic polyneuropathy E11.42 [facility] [place] [address] [id number][place] [phone] May, Type 2 diabetes mellitus with diabetic polyneuropathy E11.42 and Bloating R14.0 [facility] [place] [address] [id number][place] [phone] Apr, [address] [id number][place] [id number] Apr, [facility] [address] [place] [address] [id number] [id number] Apr, Type 2 diabetes mellitus with diabetic polyneuropathy E11.42 [facility] [id number] [place] [address] [id number] Mar, [facility] [id number] [place] [address] [id number] Mar, Type 2 diabetes mellitus with diabetic polyneuropathy E11.42 [facility] [id number] [place] [address] [id number] February, Type 2 diabetes mellitus with diabetic polyneuropathy E11.42 [facility] [address] [place] [id number] [place] [address] [phone] February, Type 2 diabetes mellitus with diabetic polyneuropathy E11.42 [facility] [id number] [place] [address] [id number] February, Type 2 diabetes mellitus with diabetic polyneuropathy E11.42 and Hypercholesteremia E78.0 [facility] [address] [place] [address] [id number] Jan, Type 2 diabetes mellitus with diabetic polyneuropathy E11.42 [facility] [address] [place] [address] [id number] Jan, Type 2 diabetes mellitus with diabetic polyneuropathy E11.42 IMMUNIZATIONS No Known Immunizations SOCIAL HISTORY Never Assessed REASON FOR VISIT PFT-[facility] 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 [address] [facility] discharge dx PAD,CAD, and SVT. Pt has f/u scheduled with 06/0205/31/2016 Hospitalization History PSVT, Hypotension, CAD-[facility] 03/13/18
--- OUTSIDE RECORDS SUMMARY | 2019-03-03 11:25 | XMS REPORT ---
Author Author ESTRELLITA PANDYA Organization [facility] Address [address] [place] [address] Care Team Providers Care Transit Proof Machine Operator Name Role Phone ESTRELLITA PANDYA Unavailable PROBLEMS Type Condition ICD9-CM Code SDO76-FQ Code Onset Dates Condition Status SNOMED Code Problem PAD (peripheral artery disease) I73.9 Active 233601702 Problem Chronic ischemic heart disease I25.9 Active 972147840 Problem Chronic GERD K21.9 Active 876720047 Problem PSVT (paroxysmal supraventricular tachycardia) I47.1 Active 96404338 Problem COPD exacerbation J44.1 Active 094150962 Problem Chronic obstructive pulmonary disease, unspecified COPD type J44.9 Active 73518096 Problem Hematochezia K92.1 Active 628458906941247 Problem Degenerative disc disease, lumbar M51.36 Active 63712689 Problem Mixed hyperlipidemia E78.2 Active 687379220 Problem Hypercholesteremia E78.0 Active 52905060 Problem Hydrocele, unspecified hydrocele type N43.3 Active 12265141 Problem Abscess L02.91 Active 618230977 Problem 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 40150249 Problem Hypertension, unspecified type I10 Active 13849598 ALLERGIES No Information ENCOUNTERS Encounter Location Date Diagnosis [facility] [id number] [address] Mar, [facility] [address] [address] Mar, [facility] [id number] [place] [address] February, [facility] [id number] [address] February, PSVT (paroxysmal supraventricular tachycardia) I47.1 [facility] [address] [address] February, COPD exacerbation J44.1 [facility] [id number] [place] [address]157- 1090 February, COPD exacerbation J44.1 [address] [place] [address]20- [address]24 February, [id number] [place] [address]88- 7385 February, [address] [place] [address] 87152- 8632 February, Type 2 diabetes mellitus with diabetic polyneuropathy E11.42 and Chronic obstructive pulmonary disease, unspecified COPD type J44.9 [address] [place] [address]32- 8818 February, [place] [id number] [place] [address]64- 8911 Jan, Type 2 diabetes mellitus with diabetic polyneuropathy E11.42 and Chronic GERD K21.[address] [place] [address] 89268- 0132 Jan, Type 2 diabetes mellitus with diabetic polyneuropathy E11.42 ; Mixed hyperlipidemia E78.2 ; Chronic obstructive pulmonary disease, unspecified COPD type J44.9 ; Hematochezia K92.1 and Degenerative disc disease, lumbar M51.36 [address] [id number] Jan, Chronic ischemic heart disease I25.9 [place] [address] [place] [address] 68593- 2736 Jan, PAD (peripheral artery disease) I73.9 and Type 2 diabetes mellitus with diabetic polyneuropathy E11.42 [address] [place] [address] 78447- 3510 Dec, Type 2 diabetes mellitus with diabetic polyneuropathy E11.42 ; Hematochezia K92.1 ; PAD (peripheral artery disease) I73.9 ; Chronic ischemic heart disease I25.9 and Weakness of left lower extremity R29.898 [facility] [address] [address] Dec, Type 2 diabetes mellitus with diabetic polyneuropathy E11.42 [facility] [address] [address] Nov, Type 2 diabetes mellitus with diabetic polyneuropathy E11.42 and PAD (peripheral artery disease) I73.9 [facility] [address] [address] Oct, Type 2 diabetes mellitus with diabetic polyneuropathy E11.42 [address] [phone] Oct, Type 2 diabetes mellitus with diabetic polyneuropathy E11.42 [facility] [address] [place] [address] 58121- 9568 Oct, Type 2 diabetes mellitus with diabetic polyneuropathy E11.42 and Chronic GERD K21.9 [facility] [address] [address] Oct, Chronic GERD K21.9 [facility] [address] [address] Sep, [facility] [address] [address] Sep, [facility] [address] [address] Sep, Type 2 diabetes mellitus with diabetic polyneuropathy E11.42 [facility] [address] [address] Aug, [facility] [address] [address] Aug, [facility] [address] [place] [address] 65849- 3067 Aug, [facility] [address] [address] Aug, Type 2 diabetes mellitus with diabetic polyneuropathy E11.42 [facility] [address] [place] [address] 82458- 9154 Jul, Type 2 diabetes mellitus with diabetic polyneuropathy E11.42 ; Chronic GERD K21.9 ; Hypercholesteremia E78.0 and PAD (peripheral artery disease) I73.9 [facility] [id number] [place] [address] 69357- 4912 Jul, Type 2 diabetes mellitus with diabetic polyneuropathy E11.42 [facility] [id number] [place] [address] 05324- 2861 Jul, [address] [place] [address] [id number] Jul, [place] [id number] [place] [address] 00692- 5419 Jul, Type 2 diabetes mellitus with diabetic polyneuropathy E11.42 [place] [address] [place] [address] 48731- 3415 Jul, [address] [place] [address] [id number] Jul, Mixed hyperlipidemia E78.2 ; Hypertension, unspecified type I10 ; PAD ( peripheral artery disease) I73.9 and Chronic ischemic heart disease I25.9 [facility] [address], [place] [address] Jun, Type 2 diabetes mellitus with diabetic polyneuropathy E11.42 [facility] [address] [place] [address] 96077- 2606 Jun, Type 2 diabetes mellitus with diabetic polyneuropathy E11.42 [address] [place] [address] [id number] Jun, [facility] [id number] [place] [address] 03486- 3715 Jun, Type 2 diabetes mellitus with diabetic polyneuropathy E11.42 ; PAD (peripheral artery disease) I73.9 ; Hypercholesteremia E78.0 and Hypertension, unspecified type I10 [facility] [id number] [place] [address] [id number] Jun, Type 2 diabetes mellitus with diabetic polyneuropathy E11.42 [facility] [id number] [place] [address] 56131 2546 May, [facility] [id number] [place] [address] 68059- 2546 May, [facility] [id number] [place] [address] [id number] Apr, Abscess L02.91 [facility] [id number] [place] [id number] Apr, [facility] [id number] [place] [address] [id number] Apr, Dental caries K02.9 and Dental examination Z01.20 [facility] [id number] [place] [address] [id number] Apr, Type 2 diabetes mellitus with diabetic polyneuropathy E11.42 [facility] [id number] [place] [address] [id number] Mar, Type 2 diabetes mellitus with diabetic polyneuropathy E11.42 [facility] [id number] [place] [address] [id number] Mar, Abscess L02.91 and Type 2 diabetes mellitus with diabetic polyneuropathy E11.42 [facility] [id number] [place] [address] [id number] February, Abscess L02.91 [facility] [id number] [place] [address] [id number] Jan, [facility] [id number] [place] [address] [id number] Jan, Type 2 diabetes mellitus with diabetic polyneuropathy E11.42 [facility] [id number] [place] [address] [id number] Jan, [facility] [id number] [phone] Jan, Abscess L02.91 [facility] [id number] [place] [address] [id number] Dec, Type 2 diabetes mellitus with diabetic polyneuropathy E11.42 [facility] [id number] [place] [address] [id number] Nov, Type 2 diabetes mellitus with diabetic polyneuropathy E11.42 [facility] [id number] [place] [address] [id number] Oct, Type 2 diabetes mellitus with diabetic polyneuropathy E11.42 [facility] [id number] [place] [address] [id number] Oct, Type 2 diabetes mellitus with diabetic polyneuropathy E11.42 [facility] [id number] [place] [address] [id number] Oct, Type 2 diabetes mellitus with diabetic polyneuropathy E11.42 and Hydrocele , unspecified hydrocele type N43.3 [facility] [id number] [place] [address] [id number] Sep, Enlarged testicle N50.89 [facility] [id number] [place] [address] [id number] Sep, Enlarged testicle N50.89 [facility] [id number] [place] [address] [id number] Sep, Type 2 diabetes mellitus with diabetic polyneuropathy E11.42 [facility] [id number] [place] [address] [id number] Sep, [facility] [id number] [place] [address] [id number] Aug, Dyspepsia R10.13 and Type 2 diabetes mellitus with diabetic polyneuropathy E11.42 [facility] [id number] [place] [address] [id number] Jul, [facility] [id number] [place] [address] [id number] Jul, Type 2 diabetes mellitus with diabetic polyneuropathy E11.42 and Dyspepsia R10.[address] [id number] [phone] Jun, [facility] [address] [id number] [phone] Jun, [facility] [address] [id number] [id number] Jun, Type 2 diabetes mellitus with diabetic polyneuropathy E11.42 and Boils L02.92 [facility] [id number] [place] [address] [id number] May, Type 2 diabetes mellitus with diabetic polyneuropathy E11.42 [facility] [address] [id number][place] [phone] May, Type 2 diabetes mellitus with diabetic polyneuropathy E11.42 and Bloating R14.0 [facility] [address] [id number][place] [phone] Apr, [facility] [address] [id number] [phone] Apr, [facility] [address] [id number][place] [id number] Apr, Type 2 diabetes mellitus with diabetic polyneuropathy E11.42 [facility] [address] [id number][place] [id number] Mar, [facility] [address] [id number][place] [phone] Mar, Type 2 diabetes mellitus with diabetic polyneuropathy E11.42 [facility] [address] [id number][place] [id number] February, Type 2 diabetes mellitus with diabetic polyneuropathy E11.42 [facility] [address] [id number][place] [id number] February, Type 2 diabetes mellitus with diabetic polyneuropathy E11.[address] [facility] [address] [id number][place] [phone] February, Type 2 diabetes mellitus with diabetic polyneuropathy E11.42 and Hypercholesteremia E78.0 [facility] [address] [id number][place] [id number] Jan, Type 2 diabetes mellitus with diabetic polyneuropathy E11.42 [facility] [address] [facility] [id number] [place] [phone] Jan, Type 2 diabetes mellitus with diabetic polyneuropathy E11.42 IMMUNIZATIONS No Known Immunizations SOCIAL HISTORY Never Assessed REASON FOR VISIT PALS IN-Novolog PLAN OF CARE VITAL SIGNS MEDICATIONS Unknown [...] stents to the right coronary artery by [facility] 05/31/17 Hospitalization History ER Visit for increased heart rate and elevated blood sugar 08/2015 Hospitalization History Had tooth extracted and became septic, was in hospital for several days. 1999 Hospitalization History [facility] discharge dx PAD,CAD, and SVT. Pt has f/u scheduled with 06/0205/31/2016 Hospitalization History PSVT, Hypotension, CAD-[facility] 03/13/18
--- OUTSIDE RECORDS SUMMARY | 2019-03-03 11:25 | XMS REPORT ---
Author Author ESTRELLITA PANDYA Organization [facility] Address [address] [place] [address] Care Team Providers Care Set Up Mechanic Name Role Phone ESTRELLITA PANDYA Unavailable PROBLEMS Type Condition ICD9-CM Code DEV54-UZ Code Onset Dates Condition Status SNOMED Code Problem PAD (peripheral artery disease) I73.9 Active 050617744 Problem Chronic ischemic heart disease I25.9 Active 123262820 Problem Chronic GERD K21.9 Active 577313847 Problem PSVT (paroxysmal supraventricular tachycardia) I47.1 Active 34881668 Problem COPD exacerbation J44.1 Active 587490372 Problem Chronic obstructive pulmonary disease, unspecified COPD type J44.9 Active 86009337 Problem Hematochezia K92.1 Active 685201563824840 Problem Degenerative disc disease, lumbar M51.36 Active 98550254 Problem Mixed hyperlipidemia E78.2 Active 825077791 Problem Hypercholesteremia E78.0 Active 39553348 Problem Hydrocele, unspecified hydrocele type N43.3 Active 37492897 Problem Abscess L02.91 Active 211200231 Problem 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 73615286 Problem Hypertension, unspecified type I10 Active 71469756 ALLERGIES No Information ENCOUNTERS Encounter Location Date Diagnosis [place] [id number] [place] [address] [phone]- 0415 Mar, [facility] [address] [place] [address] 73214- 5007 Mar, Hypercholesteremia E78.0 ; Chronic obstructive pulmonary disease, unspecified COPD type J44.9 and PSVT (paroxysmal supraventricular tachycardia) I47.1 [place] [address] [place] [id number], [place] [address] 9598 Mar, Type 2 diabetes mellitus with diabetic polyneuropathy E11.42 [place] [id number] [place] [address] 20836- 5395 February, [facility] [address] [place] [id number] [place] [address] 35940- 3481 February, PSVT (paroxysmal supraventricular tachycardia) I47.1 [facility] [address] [place] [id number] [place] [address] 64001- 0419 February, COPD exacerbation J44.1 [facility] [address] [id number] [place] [address] 01920- 3780 February, COPD exacerbation J44.1 [facility] [address] [place] [id number] [place] [address] 94283- 3963 February, [facility] [address] [place] [id number] [place] [address] 85098- 2114 February, [facility] [address] [place] [id number] [place] [address] 34355- 8052 February, Type 2 diabetes mellitus with diabetic polyneuropathy E11.42 and Chronic obstructive pulmonary disease, unspecified COPD type J44.9 [place] [address] [id number] [place] [address] 76820- 4225 February, [facility] [address] [place] [address] [id number] [place] [address] 85298- 4264 Jan, Type 2 diabetes mellitus with diabetic polyneuropathy E11.42 and Chronic GERD K21.9 [facility] [address] [place] [address] 86051- 9181 Jan, Type 2 diabetes mellitus with diabetic polyneuropathy E11.42 ; Mixed hyperlipidemia E78.2 ; Chronic obstructive pulmonary disease, unspecified COPD type J44.9 ; Hematochezia K92.1 and Degenerative disc disease, lumbar M51.36 [address] [phone] Jan, Chronic ischemic heart disease I25.9 [facility] [address] [place] [id number] [place] [address] 65631- 3198 Jan, PAD (peripheral artery disease) I73.9 and Type 2 diabetes mellitus with diabetic polyneuropathy E11.42 [facility] [address] [address] 2064 Dec, Type 2 diabetes mellitus with diabetic polyneuropathy E11.42 ; Hematochezia K92.1 ; PAD (peripheral artery disease) I73.9 ; Chronic ischemic heart disease I25.9 and Weakness of left lower extremity R29.898 [facility] [address] [place] [address] 46808- 2633 Dec, Type 2 diabetes mellitus with diabetic polyneuropathy E11.42 [facility] [address] [place] [id number] [place] [address] 01432- 4098 Nov, Type 2 diabetes mellitus with diabetic polyneuropathy E11.42 and PAD (peripheral artery disease) I73.9 [place] [address] [place] [address] 82909- 2788 Oct, Type 2 diabetes mellitus with diabetic polyneuropathy E11.42 [address] [id number] Oct, Type 2 diabetes mellitus with diabetic polyneuropathy E11.42 [facility] [address] [place] [address] 87521- 6237 Oct, Type 2 diabetes mellitus with diabetic polyneuropathy E11.42 and Chronic GERD K21.9 [facility] [address], [place] [address] 3072 Oct, Chronic GERD K21.9 [facility] [address], [place] [address] 9073 Sep, [facility] [address] [place] [address] 90929- 0306 Sep, [facility] [address] [place] [address] 83067- 4652 Sep, Type 2 diabetes mellitus with diabetic polyneuropathy E11.42 [facility] [address] [place] [address] [address] 3642 Aug, [facility] [address], [place] [address] 6332 Aug, [facility] [address], [place] [address] 1830 Aug, [facility] [address] [place] [address] 31982- 7165 Aug, Type 2 diabetes mellitus with diabetic polyneuropathy E11.42 [facility] [address] [id number] [place] [address] 48641- 1280 Jul, Type 2 diabetes mellitus with diabetic polyneuropathy E11.42 ; Chronic GERD K21.9 ; Hypercholesteremia E78.0 and PAD (peripheral artery disease) I73.9 [facility] [address], [place] [address]- 2980 Jul, Type 2 diabetes mellitus with diabetic polyneuropathy E11.42 [facility] [address], [place] [address] 8548 Jul, [facility] [address] [place] [address] [phone] Jul, [facility] [address] [place] [address] 36478- 3859 Jul, Type 2 diabetes mellitus with diabetic polyneuropathy E11.42 [facility] [address], [place] [address] Jul, [facility] [address] [place] [address] [phone] Jul, Mixed hyperlipidemia E78.2 ; Hypertension, unspecified type I10 ; PAD ( peripheral artery disease) I73.9 and Chronic ischemic heart disease I25.9 [facility] [address], [place] [address]- 2546 Jun, Type 2 diabetes mellitus with diabetic polyneuropathy E11.42 [facility] [address] [id number] [place] [address] 13836 2546 Jun, Type 2 diabetes mellitus with diabetic polyneuropathy E11.42 [facility] [id number] [place] [address] [id number] Jun, [facility] [address] [id number] [place] [address] 95253- 6236 Jun, Type 2 diabetes mellitus with diabetic polyneuropathy E11.42 ; PAD (peripheral artery disease) I73.9 ; Hypercholesteremia E78.0 and Hypertension, unspecified type I10 [facility] [id number] [place] [address] [phone] Jun, Type 2 diabetes mellitus with diabetic polyneuropathy E11.42 [facility] [id number] [place] [address] 94934- 1866 May, [facility] [id number] [place] [address] 44037- 8076 May, [facility] [address] [id number] [place] [address] [phone] Apr, Abscess L02.91 [facility] [address] [place] [address] [phone] Apr, [facility] [address] [place] [id number] [place] [address] [phone] Apr, Dental caries K02.9 and Dental examination Z01.20 [facility] [id number] [place] [address] [id number] Apr, Type 2 diabetes mellitus with diabetic polyneuropathy E11.42 [facility] [id number] [place] [address] [phone] Mar, Type 2 diabetes mellitus with diabetic polyneuropathy E11.42 [facility] [address] [place] [id number] [place] [address] [id number] Mar, Abscess L02.91 and Type 2 diabetes mellitus with diabetic polyneuropathy E11.42 [facility] [id number] [place] [address] [phone] February, Abscess L02.91 [facility] [address] [id number] [place] [address] [phone] Jan, [facility] [address] [id number] [phone] Jan, Type 2 diabetes mellitus with diabetic polyneuropathy E11.42 [facility] [address] [id number] [phone] Jan, [facility] [id number] [place] [address] [id number] Jan, Abscess L02.91 [facility] [id number] [place] [address] [phone] Dec, Type 2 diabetes mellitus with diabetic polyneuropathy E11.42 [facility] [id number] [place] [address] [phone] Nov, Type 2 diabetes mellitus with diabetic polyneuropathy E11.42 [facility] [id number] [place] [address] [phone] Oct, Type 2 diabetes mellitus with diabetic polyneuropathy E11.42 [facility] [id number] [place] [address] [id number] Oct, Type 2 diabetes mellitus with diabetic polyneuropathy E11.42 [facility] [id number] [place] [address] [id number] Oct, Type 2 diabetes mellitus with diabetic polyneuropathy E11.42 and Hydrocele , unspecified hydrocele type N43.3 [facility] [id number] [place] [address] [id number] Sep, Enlarged testicle N50.89 [facility] [id number] [place] [address] [id number] Sep, Enlarged testicle N50.89 [facility] [id number] [place] [address] [id number] Sep, Type 2 diabetes mellitus with diabetic polyneuropathy E11.42 [facility] [id number] [place] [address] [id number] Sep, [facility] [address] [id number][place] [phone] Aug, Dyspepsia R10.13 and Type 2 diabetes mellitus with diabetic polyneuropathy E11.42 [facility] [address] [id number][place] [phone] Jul, [facility] [address] [id number][place] [phone] Jul, Type 2 diabetes mellitus with diabetic polyneuropathy E11.42 and Dyspepsia R10.13 [facility] [address] [id number][place] [phone] Jun, [facility] [address] [id number][place] [phone] Jun, [facility] [address] [id number][place] [phone] Jun, Type 2 diabetes mellitus with diabetic polyneuropathy E11.42 and Boils L02.92 [facility] [address] [id number][place] [phone] May, Type 2 diabetes mellitus with diabetic polyneuropathy E11.42 [facility] [address] [id number][place] [phone] May, Type 2 diabetes mellitus with diabetic polyneuropathy E11.42 and Bloating R14.0 [facility] [address] [id number][place] [phone] Apr, [facility] [address] [id number][place] [phone] Apr, [facility] [address] [id number][place] [id number] Apr, Type 2 diabetes mellitus with diabetic polyneuropathy E11.42 [facility] [address] [id number][place] [phone] Mar, [facility] [address] [id number], [place] [id number] Mar, Type 2 diabetes mellitus with diabetic polyneuropathy E11.42 [facility] [address] [id number][place] [phone] February, Type 2 diabetes mellitus with diabetic polyneuropathy E11.42 [facility] [address] [id number][place] [phone] February, Type 2 diabetes mellitus with diabetic polyneuropathy E11.42 [facility] [address] [facility] [id number] [place] [phone] February, Type 2 diabetes mellitus with diabetic polyneuropathy E11.42 and Hypercholesteremia E78.0 [facility] [address] [facility] [id number] [place] [phone] Jan, Type 2 diabetes mellitus with diabetic polyneuropathy E11.42 [facility] [address] [facility] [id number] [place] [phone] Jan, Type 2 diabetes mellitus with diabetic polyneuropathy E11.42 IMMUNIZATIONS No Known Immunizations SOCIAL HISTORY Never Assessed REASON FOR VISIT Controlled/Repository Refill Requests PLAN OF CARE VITAL SIGNS MEDICATIONS Medication Instructions Dosage Frequency Start Date End Date Duration Status Pantoprazole Sodium 40 MG Orally Once a day 1 tablet 24h May, 90 days Active RESULTS No Results PROCEDURES [...] stents to the right coronary artery by [facility] 05/31/17 Hospitalization History ER Visit for increased heart rate and elevated blood sugar 08/2015 Hospitalization History Had tooth extracted and became septic, was in hospital for several days. 1999 Hospitalization History [facility] discharge dx PAD,CAD, and SVT. Pt has f/u scheduled with 06/0205/31/2016 Hospitalization History PSVT, Hypotension, CAD-[facility] 03/13/18
--- OUTSIDE RECORDS SUMMARY | 2019-03-03 11:26 | XMS REPORT ---
Author Author ESTRELLITA PANDYA Organization [facility] [place] Address [address] [place] [address] Care Team Providers Care Staff Radiation Therapist Name Role Phone ESTRELLITA PANDYA Unavailable PROBLEMS Type Condition ICD9-CM Code TQB33-ZU Code Onset Dates Condition Status SNOMED Code Problem PAD (peripheral artery disease) I73.9 Active 233812355 Problem Chronic ischemic heart disease I25.9 Active 426133951 Problem Chronic GERD K21.9 Active 123420998 Problem PSVT (paroxysmal supraventricular tachycardia) I47.1 Active 04483243 Problem COPD exacerbation J44.1 Active 546398403 Problem Chronic obstructive pulmonary disease, unspecified COPD type J44.9 Active 25707159 Problem Hematochezia K92.1 Active 486058131608281 Problem Degenerative disc disease, lumbar M51.36 Active 81485869 Problem Mixed hyperlipidemia E78.2 Active 564971438 Problem Hypercholesteremia E78.0 Active 48463054 Problem Hydrocele, unspecified hydrocele type N43.3 Active 30009440 Problem Abscess L02.91 Active 851874647 Problem 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 03698160 Problem Hypertension, unspecified type I10 Active 17383617 ALLERGIES No Information ENCOUNTERS Encounter Location Date Diagnosis [facility] [place] [id number] [address] Mar, [facility] [place] [id number] [address] Mar, Type 2 diabetes mellitus with diabetic polyneuropathy E11.42 [facility] [place] [id number] [address] February, [id number] [address] February, PSVT (paroxysmal supraventricular tachycardia) I47.1 [id number] [place] [address] February, COPD exacerbation J44.1 [place] [id number] [place] [address] 90012- 2482 February, COPD exacerbation J44.1 [place] [id number] [place] [address] 13547- 6920 February, [place] [address] [address] [address] February, [place] [id number] [place] [address] 14507- [address] February, Type 2 diabetes mellitus with diabetic polyneuropathy E11.42 and Chronic obstructive pulmonary disease, unspecified COPD type J44.9 [place] [id number] [place] [address] 95231- 0013 February, [place] [id number] [place] [address] 7[address]51- 8887 Jan, Type 2 diabetes mellitus with diabetic polyneuropathy E11.42 and Chronic GERD K21.9 [place] [id number] [place] [address] 59988- 9268 Jan, Type 2 diabetes mellitus with diabetic polyneuropathy E11.42 ; Mixed hyperlipidemia E78.2 ; Chronic obstructive pulmonary disease, unspecified COPD type J44.9 ; Hematochezia K92.1 and Degenerative disc disease, lumbar M51.36 [facility] [id number] [id number] Jan, Chronic ischemic heart disease I25.9 [place] [id number] [place] [address] 57288- 9715 Jan, PAD (peripheral artery disease) I73.9 and Type 2 diabetes mellitus with diabetic polyneuropathy E11.42 [place] [id number] [place] [address] 36604- 4272 Dec, Type 2 diabetes mellitus with diabetic polyneuropathy E11.42 ; Hematochezia K92.1 ; PAD (peripheral artery disease) I73.9 ; Chronic ischemic heart disease I25.9 and Weakness of left lower extremity R29.898 [facility] [place] [address] [place] [address] 79703- 5116 Dec, Type 2 diabetes mellitus with diabetic polyneuropathy E11.42 [facility] [place] [address] [place] [address] 01470- [address] Nov, Type 2 diabetes mellitus with diabetic polyneuropathy E11.42 and PAD (peripheral artery disease) I73.9 [facility] [place] [address] [place] [address] 17901- 3556 Oct, Type 2 diabetes mellitus with diabetic polyneuropathy E11.42 [address] [id number] Oct, Type 2 diabetes mellitus with diabetic polyneuropathy E11.42 [facility] [place] [address] [place] [address] 03168- 4281 Oct, Type 2 diabetes mellitus with diabetic polyneuropathy E11.42 and Chronic GERD K21.9 [facility] [place] [address] [place] [address] 73220- 2538 Oct, Chronic GERD K21.9 [facility] [place] [address] [address] Sep, [facility] [place] [address] [place] [address] 82199- 0658 Sep, [facility] [place] [address] [place] [address] 42558- 0399 Sep, Type 2 diabetes mellitus with diabetic polyneuropathy E11.42 [facility] [place] [address] [place] [address] 81264- 4852 Aug, [facility] [place] [address] [place] [address] 37929- 4957 Aug, [facility] [place] [address] [id number] [address] Aug, [facility] [place] [id number] [place] [address] 99946- 1310 Aug, Type 2 diabetes mellitus with diabetic polyneuropathy E11.42 [facility] [place] [id number] [place] [address] 78996- 4825 Jul, Type 2 diabetes mellitus with diabetic polyneuropathy E11.42 ; Chronic GERD K21.9 ; Hypercholesteremia E78.0 and PAD (peripheral artery disease) I73.9 [facility] [place] [id number] [place] [address] 26066- 9677 Jul, Type 2 diabetes mellitus with diabetic polyneuropathy E11.42 [facility] [place] [id number] [place] [address] 82167- 5729 Jul, [facility] [id number] [place] [address] [id number] Jul, [facility] [place] [id number] [place] [address] 95567- 7591 Jul, Type 2 diabetes mellitus with diabetic polyneuropathy E11.42 [facility] [place] [id number] [place] [address] 95131- 6193 Jul, [facility] [address] [place] [address] [phone] Jul, Mixed hyperlipidemia E78.2 ; Hypertension, unspecified type I10 ; PAD ( peripheral artery disease) I73.9 and Chronic ischemic heart disease I25.9 [facility] [place] [address] [address] Jun, Type 2 diabetes mellitus with diabetic polyneuropathy E11.42 [facility] [place] [id number] [place] [address] 03686- 6211 Jun, Type 2 diabetes mellitus with diabetic polyneuropathy E11.42 [facility] [address] [phone] Jun, [facility] [place] [address] [id number] [address] 2546 Jun, Type 2 diabetes mellitus with diabetic polyneuropathy E11.42 ; PAD (peripheral artery disease) I73.9 ; Hypercholesteremia E78.0 and Hypertension, unspecified type I10 [facility] [id number] [place] [address] [phone] Jun, Type 2 diabetes mellitus with diabetic polyneuropathy E11.42 [facility] [place] [address] [address] May, [facility] [place] [id number] [place] [address] 94593 2541 May, [facility] [id number] [place] [address] [id number] Apr, Abscess L02.91 [facility] [id number] [place] [address] [phone] Apr, [facility] [id number] [place] [address] [phone] Apr, Dental caries K02.9 and Dental examination Z01.20 [facility] [id number] [place] [address] [phone] Apr, Type 2 diabetes mellitus with diabetic polyneuropathy E11.42 [facility] [id number] [place] [address] [id number] Mar, Type 2 diabetes mellitus with diabetic polyneuropathy E11.42 [facility] [id number] [place] [address] [phone] Mar, Abscess L02.91 and Type 2 diabetes mellitus with diabetic polyneuropathy E11.42 [facility] [id number] [place] [address] [phone] February, Abscess L02.91 [facility] [id number] [place] [address] [phone] Jan, [facility] [id number] [place] [address] [phone] Jan, Type 2 diabetes mellitus with diabetic polyneuropathy E11.42 [facility] [id number] [place] [address] [phone] Jan, [facility] [address] [id number] [phone] Jan, Abscess L02.91 [facility] [id number] [place] [address] [phone] Dec, Type 2 diabetes mellitus with diabetic polyneuropathy E11.42 [facility] [id number] [place] [address] [id number] Nov, Type 2 diabetes mellitus with diabetic polyneuropathy E11.42 [facility] [id number] [place] [address] [id number] Oct, Type 2 diabetes mellitus with diabetic polyneuropathy E11.42 [facility] [id number] [place] [address], [place] [phone] Oct, Type 2 diabetes mellitus with diabetic polyneuropathy E11.42 [facility] [id number] [place] [address] [phone] Oct, Type 2 diabetes mellitus with diabetic polyneuropathy E11.42 and Hydrocele , unspecified hydrocele type N43.3 [facility] [id number] [place] [address] [id number] Sep, Enlarged testicle N50.89 [facility] [id number] [place] [address] [id number] Sep, Enlarged testicle N50.89 [facility] [id number] [place] [address] [id number] Sep, Type 2 diabetes mellitus with diabetic polyneuropathy E11.42 [facility] [id number] [phone] Sep, [facility] [id number] [place] [address] [phone] Aug, Dyspepsia R10.13 and Type 2 diabetes mellitus with diabetic polyneuropathy E11.42 [facility] [id number] [place] [address] [phone] Jul, [facility] [id number] [place] [address] [id number] Jul, Type 2 diabetes mellitus with diabetic polyneuropathy E11.42 and Dyspepsia R10.13 [facility] [address] [id number] [phone] Jun, [facility] [id number] [place] [address] [phone] Jun, [facility] [address] [id number] [place] [address] [id number] Jun, Type 2 diabetes mellitus with diabetic polyneuropathy E11.42 and Boils L02.92 [facility] [id number] [place] [address] [phone] May, Type 2 diabetes mellitus with diabetic polyneuropathy E11.42 [facility] [id number] [place] [address] [phone] May, Type 2 diabetes mellitus with diabetic polyneuropathy E11.42 and Bloating R14.0 [facility] [address] [id number] [id number] Apr, [address] [phone] Apr, [facility] [address] [id number] [phone] Apr, Type 2 diabetes mellitus with diabetic polyneuropathy E11.42 [facility] [id number] [place] [address] [id number] Mar, [facility] [id number] [place] [address] [id number] Mar, Type 2 diabetes mellitus with diabetic polyneuropathy E11.42 [facility] [address] [id number] [phone] February, Type 2 diabetes mellitus with diabetic polyneuropathy E11.42 [facility] [address] [id number] [id number] February, Type 2 diabetes mellitus with diabetic polyneuropathy E11.42 [facility] [id number] [place] [address] [id number] February, Type 2 diabetes mellitus with diabetic polyneuropathy E11.42 and Hypercholesteremia E78.0 [facility] [id number] [place] [address] [phone] Jan, Type 2 diabetes mellitus with diabetic polyneuropathy E11.42 [facility] [address] [id number] [place] [phone] Jan, Type 2 diabetes mellitus with diabetic polyneuropathy E11.42 IMMUNIZATIONS No Known Immunizations SOCIAL HISTORY Never Assessed REASON FOR VISIT Medication refill request PLAN OF CARE VITAL SIGNS MEDICATIONS Medication Instructions Dosage Frequency Start Date End Date Duration Status BD Insulin Syringe 30G X 1/2 subcutaneously with insulin doses Use as directed Jun, Active Accu-Chek Britt test strips as directed 8h Jan, Active RESULTS No Results PROCEDURES [...] stents to the right coronary artery by [facility] 05/31/17 Hospitalization History ER Visit for increased heart rate and elevated blood sugar 08/2015 Hospitalization History Had tooth extracted and became septic, was in hospital for several days. 1999 Hospitalization History [facility] discharge dx PAD,CAD, and SVT. Pt has f/u scheduled with 06/0205/31/2016 Hospitalization History PSVT, Hypotension, CAD-[facility] 03/13/18
--- OUTSIDE RECORDS SUMMARY | 2019-03-03 11:27 | XMS REPORT ---
Author Author ESTRELLITA PANDYA Organization [facility] Address [address] [place] [address] Care Team Providers Care Business Services Vice President Name Role Phone ESTRELLITA PANDYA Unavailable PROBLEMS Type Condition ICD9-CM Code FOI28-KP Code Onset Dates Condition Status SNOMED Code Problem PAD (peripheral artery disease) I73.9 Active 747889217 Problem Chronic ischemic heart disease I25.9 Active 151391325 Problem Chronic GERD K21.9 Active 764537755 Problem PSVT (paroxysmal supraventricular tachycardia) I47.1 Active 97582135 Problem COPD exacerbation J44.1 Active 276808177 Problem Chronic obstructive pulmonary disease, unspecified COPD type J44.9 Active 95745949 Problem Hematochezia K92.1 Active 597287084391915 Problem Degenerative disc disease, lumbar M51.36 Active 98241940 Problem Mixed hyperlipidemia E78.2 Active 254034987 Problem Hypercholesteremia E78.0 Active 57239717 Problem Hydrocele, unspecified hydrocele type N43.3 Active 04066922 Problem Abscess L02.91 Active 886662995 Problem 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 61386481 Problem Hypertension, unspecified type I10 Active 34819030 ALLERGIES No Information ENCOUNTERS Encounter Location Date Diagnosis [facility] [id number] [address] Mar, [facility] [id number] [address] Mar, [facility] [id number] [place] [address] February, [facility] [id number] [address] February, PSVT (paroxysmal supraventricular tachycardia) I47.1 [facility] [address] [address] February, COPD exacerbation J44.1 [facility] [id number] [place] [address] February, COPD exacerbation J44.1 [id number] [place] [address]86- [address] February, [id number] [place] [address]31- 6[address] February, [id number] [place] [address] February, Type 2 diabetes mellitus with diabetic polyneuropathy E11.42 and Chronic obstructive pulmonary disease, unspecified COPD type J44.9 [id number] [place] [address]36- [address] February, [place] [id number] [place] [address] 39160- 4166 Jan, Type 2 diabetes mellitus with diabetic polyneuropathy E11.42 and Chronic GERD K21.9 [address] [place] [address]18- 6946 Jan, Type 2 diabetes mellitus with diabetic polyneuropathy E11.42 ; Mixed hyperlipidemia E78.2 ; Chronic obstructive pulmonary disease, unspecified COPD type J44.9 ; Hematochezia K92.1 and Degenerative disc disease, lumbar M51.36 [address] [id number] Jan, Chronic ischemic heart disease I25.9 [id number] [place] [address]2612- [address] Jan, PAD (peripheral artery disease) I73.9 and Type 2 diabetes mellitus with diabetic polyneuropathy E11.42 [address] [place] [address] 80937- 7[address] Dec, Type 2 diabetes mellitus with diabetic polyneuropathy E11.42 ; Hematochezia K92.1 ; PAD (peripheral artery disease) I73.9 ; Chronic ischemic heart disease I25.9 and Weakness of left lower extremity R29.898 [facility] [address] [address] Dec, Type 2 diabetes mellitus with diabetic polyneuropathy E11.42 [facility] [address] [address] Nov, Type 2 diabetes mellitus with diabetic polyneuropathy E11.42 and PAD (peripheral artery disease) I73.9 [facility] [address] [address] Oct, Type 2 diabetes mellitus with diabetic polyneuropathy E11.42 [address] [phone] Oct, Type 2 diabetes mellitus with diabetic polyneuropathy E11.42 [facility] [address] [place] [address] 63560- 7163 Oct, Type 2 diabetes mellitus with diabetic polyneuropathy E11.42 and Chronic GERD K21.9 [facility] [address] [address] Oct, Chronic GERD K21.9 [facility] [address] [address] Sep, [facility] [address] [address] Sep, [facility] [address] [address] Sep, Type 2 diabetes mellitus with diabetic polyneuropathy E11.42 [facility] [address] Aug, [facility] [address] [address] Aug, [facility] [id number] [place] [address] 45578- 5[address] Aug, [facility] [address] [address] Aug, Type 2 diabetes mellitus with diabetic polyneuropathy E11.42 [facility] [address] [place] [address] 15727- 5007 Jul, Type 2 diabetes mellitus with diabetic polyneuropathy E11.42 ; Chronic GERD K21.9 ; Hypercholesteremia E78.0 and PAD (peripheral artery disease) I73.9 [facility] [id number] [place] [address] 61099- 2769 Jul, Type 2 diabetes mellitus with diabetic polyneuropathy E11.42 [facility] [id number] [place] [address] 68940- [address] Jul, [address] [place] [address] [phone] Jul, [address] [id number] [place] [address] 86640- 8409 Jul, Type 2 diabetes mellitus with diabetic polyneuropathy E11.42 [address] [address] [place] [address] 67077- [address]26 Jul, [address] [place] [address] [phone] Jul, Mixed hyperlipidemia E78.2 ; Hypertension, unspecified type I10 ; PAD ( peripheral artery disease) I73.9 and Chronic ischemic heart disease I25.9 [facility] [address] [address] Jun, Type 2 diabetes mellitus with diabetic polyneuropathy E11.42 [facility] [address] [place] [address] 04057- 1751 Jun, Type 2 diabetes mellitus with diabetic polyneuropathy E11.42 [address] [place] [address] [phone] Jun, [facility] [id number] [place] [address] 26467- 6070 Jun, Type 2 diabetes mellitus with diabetic polyneuropathy E11.42 ; PAD (peripheral artery disease) I73.9 ; Hypercholesteremia E78.0 and Hypertension, unspecified type I10 [facility] [id number] [place] [address] [phone] Jun, Type 2 diabetes mellitus with diabetic polyneuropathy E11.42 [facility] [id number] [place] [address] 24395 2546 May, [facility] [id number] [place] [address] 63754- 2546 May, [facility] [id number] [place] [address] [phone] Apr, Abscess L02.91 [facility] [id number] [place] [address] [id number] Apr, [facility] [id number] [place] [address] [phone] Apr, Dental caries K02.9 and Dental examination Z01.20 [facility] [id number] [place] [address] [id number] Apr, Type 2 diabetes mellitus with diabetic polyneuropathy E11.42 [facility] [id number] [place] [address] [phone] Mar, Type 2 diabetes mellitus with diabetic polyneuropathy E11.42 [facility] [id number] [place] [address] [phone] Mar, Abscess L02.91 and Type 2 diabetes mellitus with diabetic polyneuropathy E11.42 [facility] [id number] [place] [address] [phone] February, Abscess L02.91 [facility] [id number] [place] [address] [id number] Jan, [facility] [id number] [place] [address] [id number] Jan, Type 2 diabetes mellitus with diabetic polyneuropathy E11.42 [facility] [id number] [place] [address] [phone] Jan, [facility] [id number] [phone] Jan, Abscess L02.91 [facility] [id number] [place] [address] [phone] Dec, Type 2 diabetes mellitus with diabetic polyneuropathy E11.42 [facility] [id number] [place] [address] [id number] Nov, Type 2 diabetes mellitus with diabetic polyneuropathy E11.42 [facility] [id number] [place] [address] [id number] Oct, Type 2 diabetes mellitus with diabetic polyneuropathy E11.42 [facility] [id number] [place] [address] [id number] Oct, Type 2 diabetes mellitus with diabetic polyneuropathy E11.42 [facility] [id number] [place] [address] [id number] Oct, Type 2 diabetes mellitus with diabetic polyneuropathy E11.42 and Hydrocele , unspecified hydrocele type N43.3 [facility] [id number] [place] [address] [id number] Sep, Enlarged testicle N50.89 [facility] [id number] [place] [address] [id number] Sep, Enlarged testicle N50.89 [facility] [id number] [place] [address] [id number] Sep, Type 2 diabetes mellitus with diabetic polyneuropathy E11.42 [facility] [id number] [place] [address] [id number] Sep, [facility] [id number] [place] [address] [id number] Aug, Dyspepsia R10.13 and Type 2 diabetes mellitus with diabetic polyneuropathy E11.42 [facility] [id number] [place] [address] [id number] Jul, [facility] [id number] [place] [address] [id number] Jul, Type 2 diabetes mellitus with diabetic polyneuropathy E11.42 and Dyspepsia R10.[address] [facility] [address] [id number] [phone] Jun, [facility] [address] [id number] [phone] Jun, [facility] [address] [id number] [phone] Jun, Type 2 diabetes mellitus with diabetic polyneuropathy E11.42 and Boils L02.92 [facility] [id number] [place] [address] [id number] May, Type 2 diabetes mellitus with diabetic polyneuropathy E11.42 [facility] [address] [id number] [phone] May, Type 2 diabetes mellitus with diabetic polyneuropathy E11.42 and Bloating R14.0 [facility] [address] [id number] [phone] Apr, [facility] [address] [id number] [phone] Apr, [facility] [address] [id number] [phone] Apr, Type 2 diabetes mellitus with diabetic polyneuropathy E11.42 [facility] [address] [id number] [id number] Mar, [facility] [address] [id number] [phone] Mar, Type 2 diabetes mellitus with diabetic polyneuropathy E11.42 [facility] [address] [id number] [phone] February, Type 2 diabetes mellitus with diabetic polyneuropathy E11.42 [facility] [address] [id number] [phone] February, Type 2 diabetes mellitus with diabetic polyneuropathy E11.[address] [facility] [address] [id number] [phone] February, Type 2 diabetes mellitus with diabetic polyneuropathy E11.42 and Hypercholesteremia E78.0 [facility] [address] [id number][place] [phone] Jan, Type 2 diabetes mellitus with diabetic polyneuropathy E11.42 [facility] [address] [facility] [id number] [place] [phone] Jan, Type 2 diabetes mellitus with diabetic polyneuropathy E11.42 IMMUNIZATIONS No Known Immunizations SOCIAL HISTORY Never Assessed REASON FOR VISIT Refill request PLAN OF CARE VITAL SIGNS MEDICATIONS Medication Instructions Dosage Frequency Start Date End Date Duration Status Lyrica 50 mg Orally Three times a day 1 capsule 8h Oct, 30 days Active RESULTS No Results [...] stents to the right coronary artery by [facility] 05/31/17 Hospitalization History ER Visit for increased heart rate and elevated blood sugar 08/2015 Hospitalization History Had tooth extracted and became septic, was in hospital for several days. 1999 Hospitalization History [facility] discharge dx PAD,CAD, and SVT. Pt has f/u scheduled with 06/0205/31/2016 Hospitalization History PSVT, Hypotension, CAD-[facility] 03/13/18
--- OUTSIDE RECORDS SUMMARY | 2019-03-03 11:27 | XMS REPORT ---
Author Author ESTRELLITA PANDYA Organization [facility] Address [address] [place] [address] Care Team Providers Care Crop Duster Helper Name Role Phone ESTRELLITA PANDYA Unavailable PROBLEMS Type Condition ICD9-CM Code [id number] Code Onset Dates Condition Status SNOMED Code Problem PAD (peripheral artery disease) I73.9 Active 730108060 Problem Chronic GERD K21.9 Active 633512039 Problem Hypertension, unspecified type I10 Active 25518905 Problem 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 54512010 Problem Hypercholesteremia E78.0 Active 78950314 Problem Hydrocele, unspecified hydrocele type N43.3 Active 28985880 Problem Abscess L02.91 Active 451171361 Problem COPD exacerbation J44.1 Active 668915720 Problem Degenerative disc disease, lumbar M51.36 Active 56688773 Problem Hematochezia K92.1 Active 426829524486415 Problem Chronic ischemic heart disease I25.9 Active 691714115 Problem Mixed hyperlipidemia E78.2 Active 761376084 Problem Chronic obstructive pulmonary disease, unspecified COPD type J44.9 Active 32527380 ALLERGIES No Information ENCOUNTERS Encounter Location Date Diagnosis [place] [id number], [place] [address] February, COPD exacerbation J44.1 [facility] [id number] [place] [address]373- [address]505 February, [place] [address] [place] [id number] [place] [address] 99506- 6168 February, [place] [address] [place] [id number] [place] [address] 03308- 6734 February, Type 2 diabetes mellitus with diabetic polyneuropathy E11.42 and Chronic obstructive pulmonary disease, unspecified COPD type J44.9 [place] [address] [place] [id number] [address] February, [place] [address] [place] [id number] [place] [address] 89431- 7910 Jan, Type 2 diabetes mellitus with diabetic polyneuropathy E11.42 and Chronic GERD K21.9 [place] [address] [place] [id number] [place] [address] 05611- 3537 Jan, Type 2 diabetes mellitus with diabetic polyneuropathy E11.42 ; Mixed hyperlipidemia E78.2 ; Chronic obstructive pulmonary disease, unspecified COPD type J44.9 ; Hematochezia K92.1 and Degenerative disc disease, lumbar M51.36 [place] [id number] [place] [address] [id number] Jan, Chronic ischemic heart disease I25.9 [place] [address] [place] [id number] [place] [address] 77534- 9564 Jan, PAD (peripheral artery disease) I73.9 and Type 2 diabetes mellitus with diabetic polyneuropathy E11.42 [place] [address] [place] [id number] [place] [address] 15776- 4121 Dec, Type 2 diabetes mellitus with diabetic polyneuropathy E11.42 ; Hematochezia K92.1 ; PAD (peripheral artery disease) I73.9 ; Chronic ischemic heart disease I25.9 and Weakness of left lower extremity R29.898 [place] [address] [place] [id number] [place] [address] 80484- 1548 Dec, Type 2 diabetes mellitus with diabetic polyneuropathy E11.42 [place] [address] [place] [id number] [place] [address] 53639- 7520 Nov, Type 2 diabetes mellitus with diabetic polyneuropathy E11.42 and PAD (peripheral artery disease) I73.9 [place] [address] [place] [id number] [place] [address] 71444- 2540 Oct, Type 2 diabetes mellitus with diabetic polyneuropathy E11.42 [place] [id number] [place] [address] [id number] Oct, Type 2 diabetes mellitus with diabetic polyneuropathy E11.42 [facility] [address] [place] [id number] [place] [address] 02717- 4108 Oct, Type 2 diabetes mellitus with diabetic polyneuropathy E11.42 and Chronic GERD K21.9 [facility] [address] [place] [address] [id number] [place] [address] 01363- 6570 Oct, Chronic GERD K21.9 [facility] [address] [place] [id number] [place] [address] 11176- 0711 Sep, [facility] [address] [place] [address] [id number] [place] [address] 31491- 8331 Sep, [facility] [address] [place] [address] [id number] [place] [address] 02116- 9191 Sep, Type 2 diabetes mellitus with diabetic polyneuropathy E11.42 [facility] [address] [place] [address] [id number] [place] [address] 90300- 2348 Aug, [facility] [address] [place] [address] [id number] [place] [address] 12521- 0755 Aug, [facility] [address] [place] [address] [id number] [place] [address] 96888- 7228 Aug, [facility] [address] [place] [address] [id number] [place] [address] 77087- 3482 Aug, Type 2 diabetes mellitus with diabetic polyneuropathy E11.42 [facility] [address] [place] [address] [id number] [place] [address] 49832- 2333 Jul, Type 2 diabetes mellitus with diabetic polyneuropathy E11.42 ; Chronic GERD K21.9 ; Hypercholesteremia E78.0 and PAD (peripheral artery disease) I73.9 [facility] [address] [place] [address] [id number] [place] [address] 38750- 2759 Jul, Type 2 diabetes mellitus with diabetic polyneuropathy E11.42 [facility] [address] [place] [address] [id number] [place] [address] 73985- 2777 Jul, [facility] [id number] [id number] Jul, [facility] [address] [place] [id number] [place] [address] 52307- 2679 Jul, Type 2 diabetes mellitus with diabetic polyneuropathy E11.42 [facility] [address] [place] [address] [id number] [place] [address] 22042 2546 Jul, [facility] [address] [place] [id number] [place] [address] [id number] Jul, Mixed hyperlipidemia E78.2 ; Hypertension, unspecified type I10 ; PAD ( peripheral artery disease) I73.9 and Chronic ischemic heart disease I25.9 [facility] [address] [place] [id number] [place] [address] 23064- 1706 Jun, Type 2 diabetes mellitus with diabetic polyneuropathy E11.42 [place] [address] [place] [id number] [place] [address] 61395- 3398 Jun, Type 2 diabetes mellitus with diabetic polyneuropathy E11.42 [facility] [address] [place] [address] [phone] Jun, [facility] [address] [place] [id number] [place] [address] 18623- 7990 Jun, Type 2 diabetes mellitus with diabetic polyneuropathy E11.42 ; PAD (peripheral artery disease) I73.9 ; Hypercholesteremia E78.0 and Hypertension, unspecified type I10 [facility] [address] [place] [address] [id number] Jun, Type 2 diabetes mellitus with diabetic polyneuropathy E11.42 [facility] [address] [address] May, [facility] [address] [place] [id number] [place] [address] 66480- 0086 May, [facility] [address] [place] [address] [id number] Apr, Abscess L02.91 [facility] [address] [place] [id number] Apr, [facility] [address] [id number] [id number] Apr, Dental caries K02.9 and Dental examination Z01.[address] [facility] [address] [id number] [place] [phone] Apr, Type 2 diabetes mellitus with diabetic polyneuropathy E11.[address] [facility] [address] [id number] [place] [id number] Mar, Type 2 diabetes mellitus with diabetic polyneuropathy E11.[address] [facility] [address] [id number] [place] [phone] Mar, Abscess L02.91 and Type 2 diabetes mellitus with diabetic polyneuropathy E11.[address] [facility] [address] [id number] [place] [id number] February, Abscess L02.[address] [id number] [place] [id number] Jan, [facility] [address] [id number] [place] [phone] Jan, Type 2 diabetes mellitus with diabetic polyneuropathy E11.[address] [facility] [id number] [place] [phone] Jan, [facility] [address] [id number] [place] [phone] Jan, Abscess L02.[address] [id number] [place] [id number] Dec, Type 2 diabetes mellitus with diabetic polyneuropathy E11.[address] [id number] [place] [phone] Nov, Type 2 diabetes mellitus with diabetic polyneuropathy E11.[address] [id number] [place] [id number] Oct, Type 2 diabetes mellitus with diabetic polyneuropathy E11.[address] [id number] [place] [id number] Oct, Type 2 diabetes mellitus with diabetic polyneuropathy E11.[id number] [place] [address] [id number] Oct, Type 2 diabetes mellitus with diabetic polyneuropathy E11.42 and Hydrocele , unspecified hydrocele type N43.3 [facility] [id number] [place] [address] [id number] Sep, Enlarged testicle N50.89 [facility] [address] [place] [id number] [place] [address] [id number] Sep, Enlarged testicle N50.89 [facility] [address] [place] [address] [id number] [place] [address] [id number] Sep, Type 2 diabetes mellitus with diabetic polyneuropathy E11.42 [facility] [address] [place] [address] [id number] [place] [address] [id number] Sep, [facility] [address] [place] [address] [id number] [place] [address] [id number] Aug, Dyspepsia R10.13 and Type 2 diabetes mellitus with diabetic polyneuropathy E11.42 [facility] [address] [place] [address] [id number] [place] [address] [id number] Jul, [facility] [address] [place] [address] [id number] [place] [address] [id number] Jul, Type 2 diabetes mellitus with diabetic polyneuropathy E11.42 and Dyspepsia R10.13 [facility] [address] [place] [address] [id number] [place] [address] [id number] Jun, [facility] [address] [place] [address] [id number] [place] [address] [id number] Jun, [facility] [address] [place] [address] [id number] [place] [address] [id number] Jun, Type 2 diabetes mellitus with diabetic polyneuropathy E11.42 and Boils L02.92 [facility] [address] [place] [address] [id number] [place] [address] [id number] May, Type 2 diabetes mellitus with diabetic polyneuropathy E11.42 [facility] [address] [place] [address] [id number] [place] [address] [id number] May, Type 2 diabetes mellitus with diabetic polyneuropathy E11.42 and Bloating R14.0 [facility] [address] [place] [address] [id number] [place] [address] [id number] Apr, [facility] [address] [id number] [phone] Apr, [facility] [place] [id number] [phone] Apr, Type 2 diabetes mellitus with diabetic polyneuropathy E11.42 [facility] [place] [id number] [phone] Mar, [facility] [place] [id number] [place] [address] [id number] Mar, Type 2 diabetes mellitus with diabetic polyneuropathy E11.42 [facility] [address] [place] [address] [id number] February, Type 2 diabetes mellitus with diabetic polyneuropathy E11.42 [facility] [address] [id number] February, Type 2 diabetes mellitus with diabetic polyneuropathy E11.42 [facility] [place] [id number] [place] [address] [id number] February, Type 2 diabetes mellitus with diabetic polyneuropathy E11.42 and Hypercholesteremia E78.0 [facility] [address] [place] [address] [id number] Jan, Type 2 diabetes mellitus with diabetic polyneuropathy E11.42 [address] [id number] Jan, Type 2 diabetes mellitus with diabetic polyneuropathy E11.42 IMMUNIZATIONS No Known Immunizations SOCIAL HISTORY Never Assessed REASON FOR VISIT Medication refill request PLAN OF CARE VITAL SIGNS MEDICATIONS Medication Instructions Dosage Frequency Start Date End Date Duration Status Accu-Chek Britt Test Strips as directed 8h Jan, Active MetFORMIN HCl ER 500 mg Orally twice a day 2 tabs 12h 10 Jul, 2016 30 days Active BD Insulin Syringe 30G [...] stents to the right coronary artery by [facility] 05/31/17 Hospitalization History ER Visit for increased heart rate and elevated blood sugar 08/2015 Hospitalization History Had tooth extracted and became septic, was in hospital for several days. 1999 Hospitalization History [facility] discharge dx PAD,CAD, and SVT. Pt has f/u scheduled with 06/0205/31/2016
--- OUTSIDE RECORDS SUMMARY | 2019-03-03 11:28 | XMS REPORT ---
Author Author ESTRELLITA PANDYA Organization [facility] Address [address] [place] [address] Care Team Providers Care General Cleaner Name Role Phone ESTRELLITA PANDYA Unavailable PROBLEMS Type Condition ICD9-CM Code CDP53-SX Code Onset Dates Condition Status SNOMED Code Problem PAD (peripheral artery disease) I73.9 Active 635427280 Problem Chronic ischemic heart disease I25.9 Active 609321480 Problem Chronic GERD K21.9 Active 974595294 Problem PSVT (paroxysmal supraventricular tachycardia) I47.1 Active 15336670 Problem COPD exacerbation J44.1 Active 237004934 Problem Chronic obstructive pulmonary disease, unspecified COPD type J44.9 Active 92211778 Problem Hematochezia K92.1 Active [id number] Problem Degenerative disc disease, lumbar M51.36 Active 65893955 Problem Mixed hyperlipidemia E78.2 Active 986540759 Problem Hypercholesteremia E78.0 Active 57016260 Problem Hydrocele, unspecified hydrocele type N43.3 Active 77753340 Problem Abscess L02.91 Active 976409399 Problem 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 02494620 Problem Hypertension, unspecified type I10 Active 69222431 ALLERGIES No Information ENCOUNTERS Encounter Location Date Diagnosis [facility] [id number] [place] [address]80[address] Mar, [facility] [address] [address] Mar, [facility] [id number] [place] [address]67- 2735 Mar, Hypercholesteremia E78.0 ; Chronic obstructive pulmonary disease, unspecified COPD type J44.9 and PSVT (paroxysmal supraventricular tachycardia) I47.1 [facility] [address] [address] Mar, Type 2 diabetes mellitus with diabetic polyneuropathy E11.42 [facility] [address] [place] [address] 90878- 5669 February, [facility] [id number] [place] [address] 05171- 0467 February, PSVT (paroxysmal supraventricular tachycardia) I47.1 [facility] [id number] [place] [address] 15666- 9904 February, COPD exacerbation J44.1 [facility] [id number] [place] [address] 26448- 1808 February, COPD exacerbation J44.1 [facility] [id number] [place] [address] 78132- 2759 February, [facility] [id number] [place] [address] 95438- 7968 February, [facility] [address] [place] [address] 73468- 1535 February, Type 2 diabetes mellitus with diabetic polyneuropathy E11.42 and Chronic obstructive pulmonary disease, unspecified COPD type J44.9 [facility] [address] [place] [address] 12839- 3727 February, [facility] [address] [place] [address] 66521- 6143 Jan, Type 2 diabetes mellitus with diabetic polyneuropathy E11.42 and Chronic GERD K21.9 [facility] [address], [place] [address] Jan, Type 2 diabetes mellitus with diabetic polyneuropathy E11.42 ; Mixed hyperlipidemia E78.2 ; Chronic obstructive pulmonary disease, unspecified COPD type J44.9 ; Hematochezia K92.1 and Degenerative disc disease, lumbar M51.36 [place] [id number] [id number] Jan, Chronic ischemic heart disease I25.9 [facility] [address], [place] [address] Jan, PAD (peripheral artery disease) I73.9 and Type 2 diabetes mellitus with diabetic polyneuropathy E11.42 [facility] [address] [address] Dec, Type 2 diabetes mellitus with diabetic polyneuropathy E11.42 ; Hematochezia K92.1 ; PAD (peripheral artery disease) I73.9 ; Chronic ischemic heart disease I25.9 and Weakness of left lower extremity R29.898 [facility] [address] [address] Dec, Type 2 diabetes mellitus with diabetic polyneuropathy E11.42 [facility] [facility] [address], [place] [address] Nov, Type 2 diabetes mellitus with diabetic polyneuropathy E11.42 and PAD (peripheral artery disease) I73.9 [facility] [address] [address] Oct, Type 2 diabetes mellitus with diabetic polyneuropathy E11.42 [address] [id number] Oct, Type 2 diabetes mellitus with diabetic polyneuropathy E11.42 [facility] [address], [place] [address] Oct, Type 2 diabetes mellitus with diabetic polyneuropathy E11.42 and Chronic GERD K21.9 [facility] [id number] [address] Oct, Chronic GERD K21.9 [facility] [address], [place] [address] Sep, [facility] [address], [place] [address] 05 Sep, 2017 [facility] [address], [place] [address] Sep, Type 2 diabetes mellitus with diabetic polyneuropathy E11.42 [facility] [address], [place] [address] 387[address] Aug, [facility] [address] [place] [address] 19894- 5183 Aug, [facility] [id number] [place] [address] 32139- 7452 Aug, [facility] [id number] [place] [address] 68898- 3863 Aug, Type 2 diabetes mellitus with diabetic polyneuropathy E11.42 [facility] [id number] [place] [address] 12883- 4407 Jul, Type 2 diabetes mellitus with diabetic polyneuropathy E11.42 ; Chronic GERD K21.9 ; Hypercholesteremia E78.0 and PAD (peripheral artery disease) I73.9 [facility] [address], [place] [address] Jul, Type 2 diabetes mellitus with diabetic polyneuropathy E11.42 [facility] [address] [place] [address] 92699- 0996 Jul, [address] [id number] Jul, [facility] [address] [place] [address] 91731- 0081 Jul, Type 2 diabetes mellitus with diabetic polyneuropathy E11.42 [facility] [address] [place] [address] 19872- 7477 Jul, [place] [id number] [place] [address] [phone] Jul, Mixed hyperlipidemia E78.2 ; Hypertension, unspecified type I10 ; PAD ( peripheral artery disease) I73.9 and Chronic ischemic heart disease I25.9 [facility] [address] [place] [address] 74531- 5037 Jun, Type 2 diabetes mellitus with diabetic polyneuropathy E11.42 [facility] [id number] [place] [address] 97446- 7591 Jun, Type 2 diabetes mellitus with diabetic polyneuropathy E11.42 [facility] [id number] [place] [address] [id number] Jun, [facility] [address] [address] Jun, Type 2 diabetes mellitus with diabetic polyneuropathy E11.42 ; PAD (peripheral artery disease) I73.9 ; Hypercholesteremia E78.0 and Hypertension, unspecified type I10 [facility] [address] [id number] Jun, Type 2 diabetes mellitus with diabetic polyneuropathy E11.42 [facility] [address] [address]- 4078 May, [facility] [id number] [place] [address] 51362- 7477 May, [facility] [id number] [place] [address] [id number] Apr, Abscess L02.91 [facility] [id number] [place] [address] [id number] Apr, [facility] [id number] [place] [address] [phone] Apr, Dental caries K02.9 and Dental examination Z01.20 [facility] [id number] [place] [address] [id number] Apr, Type 2 diabetes mellitus with diabetic polyneuropathy E11.42 [facility] [id number] [place] [address] [id number] Mar, Type 2 diabetes mellitus with diabetic polyneuropathy E11.42 [facility] [address] [id number] Mar, Abscess L02.91 and Type 2 diabetes mellitus with diabetic polyneuropathy E11.42 [facility] [id number] [place] [address] [phone] February, Abscess L02.[address] [facility] [address] [id number] [place] [id number] Jan, [facility] [address] [id number] [place] [phone] Jan, Type 2 diabetes mellitus with diabetic polyneuropathy E11.[address] [facility] [id number] [place] [address] [phone] Jan, [facility] [id number] [place] [address] [phone] Jan, Abscess L02.[address] [facility] [id number] [place] [id number] Dec, Type 2 diabetes mellitus with diabetic polyneuropathy E11.[address] [facility] [id number] [place] [address] [id number] Nov, Type 2 diabetes mellitus with diabetic polyneuropathy E11.[address] [facility] [id number] [place] [address] [id number] Oct, Type 2 diabetes mellitus with diabetic polyneuropathy E11.[address] [facility] [id number] [place] [phone] Oct, Type 2 diabetes mellitus with diabetic polyneuropathy E11.[address] [facility] [id number] [place] [id number] Oct, Type 2 diabetes mellitus with diabetic polyneuropathy E11.42 and Hydrocele , unspecified hydrocele type N43.3 [facility] [id number] [place] [address] [id number] Sep, Enlarged testicle N50.[address] [facility] [address] [id number] [id number] Sep, Enlarged testicle N50.[address] [facility] [id number] [place] [address] [id number] Sep, Type 2 diabetes mellitus with diabetic polyneuropathy E11.42 [facility] [id number] [place] [address] [id number] Sep, [facility] [id number] [place] [address] [id number] Aug, Dyspepsia R10.13 and Type 2 diabetes mellitus with diabetic polyneuropathy E11.[address] [facility] [address] [id number] [id number] Jul, [facility] [id number] [place] [address] [id number] Jul, Type 2 diabetes mellitus with diabetic polyneuropathy E11.42 and Dyspepsia R10.[address] [facility] [address] [id number] [id number] Jun, [facility] [address] [id number] [id number] Jun, [facility] [place] [facility] [id number] [place] [address] [id number] Jun, Type 2 diabetes mellitus with diabetic polyneuropathy E11.42 and Boils L02.92 [facility] [facility] [id number] [place] [address] [id number] May, Type 2 diabetes mellitus with diabetic polyneuropathy E11.42 [facility] [address] [id number] [phone] May, Type 2 diabetes mellitus with diabetic polyneuropathy E11.42 and Bloating R14.0 [facility] [address] [id number] [phone] Apr, [facility] [address] [id number] [id number] Apr, [facility] [place] [address] [id number][place] [phone] Apr, Type 2 diabetes mellitus with diabetic polyneuropathy E11.42 [facility] [address] [id number] [id number] Mar, [facility] [address] [id number][place] [id number] Mar, Type 2 diabetes mellitus with diabetic polyneuropathy E11.42 [facility] [facility] [address] [id number][place] [id number] February, Type 2 diabetes mellitus with diabetic polyneuropathy E11.42 [facility] [address] [id number][place] [phone] February, Type 2 diabetes mellitus with diabetic polyneuropathy E11.42 [facility] [address] [facility] [id number][place] [id number] February, Type 2 diabetes mellitus with diabetic polyneuropathy E11.42 and Hypercholesteremia E78.0 [facility] [address] [facility] [id number][place] [id number] Jan, Type 2 diabetes mellitus with diabetic polyneuropathy E11.42 [facility] [address] [facility] [id number][place] [phone] Jan, Type 2 diabetes mellitus with diabetic [...] twice a day 2 tabs 12h Jul, 45 days Active Pantoprazole Sodium 40 MG Orally [...] stents to the right coronary artery by [facility] 05/31/17 Hospitalization History ER Visit for increased heart rate and elevated blood sugar 08/2015 Hospitalization History Had tooth extracted and became septic, was in hospital for several days. 1999 Hospitalization History [facility] discharge dx PAD,CAD, and SVT. Pt has f/u scheduled with 06/0205/31/2016 Hospitalization History PSVT, Hypotension, CAD-[facility] 03/13/18
--- OUTSIDE RECORDS SUMMARY | 2019-03-03 11:28 | XMS REPORT ---
Author Author ESTRELLITA PANDYA Organization [facility] Address [address] [place] [address] Care Team Providers Care Granite Polisher Name Role Phone ESTRELLITA PANDYA Unavailable PROBLEMS Type Condition ICD9-CM Code ITY58-HN Code Onset Dates Condition Status SNOMED Code Problem PAD (peripheral artery disease) I73.9 Active 661707699 Problem Chronic ischemic heart disease I25.9 Active 279094641 Problem Chronic GERD K21.9 Active 448155216 Problem PSVT (paroxysmal supraventricular tachycardia) I47.1 Active 93669299 Problem COPD exacerbation J44.1 Active 336855317 Problem Chronic obstructive pulmonary disease, unspecified COPD type J44.9 Active 61614071 Problem Hematochezia K92.1 Active [id number] Problem Degenerative disc disease, lumbar M51.36 Active 74141629 Problem Mixed hyperlipidemia E78.2 Active 133648289 Problem Hypercholesteremia E78.0 Active 06334780 Problem Hydrocele, unspecified hydrocele type N43.3 Active 79372915 Problem Abscess L02.91 Active 162770751 Problem 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 82045400 Problem Hypertension, unspecified type I10 Active 17737983 ALLERGIES No Information ENCOUNTERS Encounter Location Date Diagnosis [facility] [id number] [place] [address]398- 8391 Mar, [facility] [address] [address] Mar, [facility] [address] [place] [address] 21511- 4319 Mar, Hypercholesteremia E78.0 ; Chronic obstructive pulmonary disease, unspecified COPD type J44.9 and PSVT (paroxysmal supraventricular tachycardia) I47.1 [facility] [address] [address] Mar, Type 2 diabetes mellitus with diabetic polyneuropathy E11.42 [place] [address] [place] [address] 84832- 2053 February, [facility] [address] [id number] [place] [address] 61088- 4450 February, PSVT (paroxysmal supraventricular tachycardia) I47.1 [facility] [id number] [place] [address] 50981- 2071 February, COPD exacerbation J44.1 [facility] [id number] [place] [address] 96396- 3379 February, COPD exacerbation J44.1 [facility] [id number] [place] [address] 38870- 0235 February, [place] [id number] [place] [address] 05019- 2508 February, [facility] [address] [place] [address] 39058- 8458 February, Type 2 diabetes mellitus with diabetic polyneuropathy E11.42 and Chronic obstructive pulmonary disease, unspecified COPD type J44.9 [facility] [address] [place] [address] 40135- 3277 February, [facility] [address] [place] [address] 53280- 9049 Jan, Type 2 diabetes mellitus with diabetic polyneuropathy E11.42 and Chronic GERD K21.9 [facility] [address] [address] Jan, Type 2 diabetes mellitus with diabetic polyneuropathy E11.42 ; Mixed hyperlipidemia E78.2 ; Chronic obstructive pulmonary disease, unspecified COPD type J44.9 ; Hematochezia K92.1 and Degenerative disc disease, lumbar M51.36 [place] [id number] [id number] Jan, Chronic ischemic heart disease I25.9 [facility] [address] [address] Jan, PAD (peripheral artery disease) I73.9 and Type 2 diabetes mellitus with diabetic polyneuropathy E11.42 [facility] [address] [address]6 Dec, Type 2 diabetes mellitus with diabetic polyneuropathy E11.42 ; Hematochezia K92.1 ; PAD (peripheral artery disease) I73.9 ; Chronic ischemic heart disease I25.9 and Weakness of left lower extremity R29.898 [facility] [address] [address] Dec, Type 2 diabetes mellitus with diabetic polyneuropathy E11.42 [place] [address] [address] Nov, Type 2 diabetes mellitus with diabetic polyneuropathy E11.42 and PAD (peripheral artery disease) I73.9 [facility] [address] [address]142 Oct, Type 2 diabetes mellitus with diabetic polyneuropathy E11.42 [address] [id number] Oct, Type 2 diabetes mellitus with diabetic polyneuropathy E11.42 [facility] [address] [address] 9939 Oct, Type 2 diabetes mellitus with diabetic polyneuropathy E11.42 and Chronic GERD K21.9 [facility] [address] [place] [id number] [address] 5860 Oct, Chronic GERD K21.9 [facility] [address] [address] 7137 Sep, [facility] [address] [address] 5845 05 Sep, 2017 [facility] [address] [address] 2504 Sep, Type 2 diabetes mellitus with diabetic polyneuropathy E11.42 [facility] [address] [address] 9694 Aug, [facility] [address] [place] [address] 55725- 7394 Aug, [facility] [id number] [place] [address] 49847- 6230 Aug, [facility] [id number] [place] [address] 18289- 7746 Aug, Type 2 diabetes mellitus with diabetic polyneuropathy E11.42 [facility] [address] [address] [id number] [place] [address] 86654- 7253 Jul, Type 2 diabetes mellitus with diabetic polyneuropathy E11.42 ; Chronic GERD K21.9 ; Hypercholesteremia E78.0 and PAD (peripheral artery disease) I73.9 [place] [address] [address] 8870 Jul, Type 2 diabetes mellitus with diabetic polyneuropathy E11.42 [place] [address] [place] [address] 18199- 3963 Jul, [address] [id number] Jul, [facility] [address] [place] [address] 22356- 3432 Jul, Type 2 diabetes mellitus with diabetic polyneuropathy E11.42 [facility] [address] [place] [address] 37710- 3315 Jul, [place] [id number] [place] [phone] Jul, Mixed hyperlipidemia E78.2 ; Hypertension, unspecified type I10 ; PAD ( peripheral artery disease) I73.9 and Chronic ischemic heart disease I25.9 [facility] [address] [place] [address] 01620- 2768 Jun, Type 2 diabetes mellitus with diabetic polyneuropathy E11.42 [facility] [id number] [place] [address] 46593- 1401 Jun, Type 2 diabetes mellitus with diabetic polyneuropathy E11.42 [facility] [address] [place] [address] [id number] [place] [address] [phone] Jun, [facility] [address] [address]- 2627 Jun, Type 2 diabetes mellitus with diabetic polyneuropathy E11.42 ; PAD (peripheral artery disease) I73.9 ; Hypercholesteremia E78.0 and Hypertension, unspecified type I10 [facility] [address] [id number] Jun, Type 2 diabetes mellitus with diabetic polyneuropathy E11.42 [facility] [address] 56786- 2069 May, [facility] [id number] [place] [address] 76490- 8876 May, [facility] [id number] [place] [address] [phone] Apr, Abscess L02.91 [facility] [id number] [place] [address] [phone] Apr, [facility] [address] [id number] [place] [address] [phone] Apr, Dental caries K02.9 and Dental examination Z01.20 [facility] [id number] [place] [address] [phone] Apr, Type 2 diabetes mellitus with diabetic polyneuropathy E11.42 [facility] [id number] [place] [address] [phone] Mar, Type 2 diabetes mellitus with diabetic polyneuropathy E11.42 [facility] [address] [id number] Mar, Abscess L02.91 and Type 2 diabetes mellitus with diabetic polyneuropathy E11.42 [facility] [address] [id number] [place] [address] [phone] February, Abscess L02.[address] [facility] [address] [id number] [place] [phone] Jan, [facility] [address] [id number] [place] [phone] Jan, Type 2 diabetes mellitus with diabetic polyneuropathy E11.[address] [facility] [id number] [place] [address] [phone] Jan, [facility] [id number] [place] [address] [phone] Jan, Abscess L02.[address] [facility] [id number] [place] [phone] Dec, Type 2 diabetes mellitus with diabetic polyneuropathy E11.[address] [id number] [place] [address] [phone] Nov, Type 2 diabetes mellitus with diabetic polyneuropathy E11.[address] [facility] [id number] [place] [address] [phone] Oct, Type 2 diabetes mellitus with diabetic polyneuropathy E11.[address] [facility] [id number] [place] [phone] Oct, Type 2 diabetes mellitus with diabetic polyneuropathy E11.[address] [facility] [id number] [place] [phone] Oct, Type 2 diabetes mellitus with diabetic polyneuropathy E11.42 and Hydrocele , unspecified hydrocele type N43.3 [facility] [id number] [place] [address] [phone] Sep, Enlarged testicle N50.[address] [facility] [address] [id number] [phone] Sep, Enlarged testicle N50.[address] [facility] [id number] [place] [address] [phone] Sep, Type 2 diabetes mellitus with diabetic polyneuropathy E11.42 [facility] [id number] [place] [address] [phone] Sep, [facility] [id number] [place] [address] [phone] Aug, Dyspepsia R10.13 and Type 2 diabetes mellitus with diabetic polyneuropathy E11.[address] [facility] [address] [id number][place] [phone] Jul, [facility] [id number] [place] [address] [phone] Jul, Type 2 diabetes mellitus with diabetic polyneuropathy E11.42 and Dyspepsia R10.13 [facility] [address] [id number][place] [phone] Jun, [facility] [address] [id number][place] [phone] Jun, [facility] [id number] [place] [address] [phone] Jun, Type 2 diabetes mellitus with diabetic polyneuropathy E11.42 and Boils L02.92 [facility] [id number] [place] [address] [phone] May, Type 2 diabetes mellitus with diabetic polyneuropathy E11.42 [facility] [address] [id number] [phone] May, Type 2 diabetes mellitus with diabetic polyneuropathy E11.42 and Bloating R14.0 [facility] [address] [id number][place] [id number] Apr, [facility] [address] [id number] [phone] Apr, [facility] [address] [id number][place] [phone] Apr, Type 2 diabetes mellitus with diabetic polyneuropathy E11.42 [facility] [address] [id number][place] [phone] Mar, [facility] [address] [id number][place] [phone] Mar, Type 2 diabetes mellitus with diabetic polyneuropathy E11.42 [facility] [address] [id number][place] [phone] February, Type 2 diabetes mellitus with diabetic polyneuropathy E11.42 [facility] [address] [id number][place] [phone] February, Type 2 diabetes mellitus with diabetic polyneuropathy E11.42 [facility] [address] [facility] [id number][place] [phone] February, Type 2 diabetes mellitus with diabetic polyneuropathy E11.42 and Hypercholesteremia E78.0 [facility] 120 [facility] [id number] [phone] Jan, Type 2 diabetes mellitus with diabetic polyneuropathy E11.42 [facility] 120 [facility] [id number][place] [phone] Jan, Type 2 diabetes mellitus with diabetic polyneuropathy E11.42 IMMUNIZATIONS No Known Immunizations SOCIAL HISTORY Never Assessed REASON FOR VISIT lab Gabriel OSWALD PLAN OF CARE VITAL SIGNS MEDICATIONS Unknown Medications RESULTS Name Result Date Reference Range A1C (IN HOUSE) 2017-11-12 A1C IN HOUSE 7.8 4.3 - 5.6 % Previous A1c 6.9 Lot [id number] Exp date 08/07 PROCEDURES Procedure Date Ordered Result Body Site GLYCATED HEMOGLOBIN TEST Nov 12, 2017 INSTRUCTIONS MEDICATIONS ADMINISTERED No Known Medications [...] stents to the right coronary artery by [facility] 05/31/17 Hospitalization History ER Visit for increased heart rate and elevated blood sugar 08/2015 Hospitalization History Had tooth extracted and became septic, was in hospital for several days. 1999 Hospitalization History [facility] discharge dx PAD,CAD, and SVT. Pt has f/u scheduled with 06/0205/31/2016 Hospitalization History PSVT, Hypotension, CAD-[facility] 03/13/18
--- OUTSIDE RECORDS SUMMARY | 2019-03-03 11:28 | XMS REPORT ---
Author Author ESTRELLITA PANDYA Organization [facility] Address [address] [place] [address] Care Team Providers Care Cork Mixer Name Role Phone ESTRELLITA PANDYA Unavailable PROBLEMS Type Condition ICD9-CM Code IOE63-TG Code Onset Dates Condition Status SNOMED Code Problem PAD (peripheral artery disease) I73.9 Active 229657228 Problem Chronic ischemic heart disease I25.9 Active 763276016 Problem Chronic GERD K21.9 Active 644704869 Problem PSVT (paroxysmal supraventricular tachycardia) I47.1 Active 22634404 Problem COPD exacerbation J44.1 Active 197917734 Problem Chronic obstructive pulmonary disease, unspecified COPD type J44.9 Active 17093107 Problem Hematochezia K92.1 Active [id number] Problem Degenerative disc disease, lumbar M51.36 Active 10116279 Problem Mixed hyperlipidemia E78.2 Active 191477895 Problem Hypercholesteremia E78.0 Active 20945136 Problem Hydrocele, unspecified hydrocele type N43.3 Active 80201277 Problem Abscess L02.91 Active 859807551 Problem 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 67371840 Problem Hypertension, unspecified type I10 Active [id number] ALLERGIES No Information ENCOUNTERS Encounter Location Date Diagnosis [place] [id number] [place] [address]1378- 5636 Mar, [place] [address], [place] [address] Mar, [place] [address] [place] [address] 56141- 6301 Mar, [place] [address] [place] [id number] [place] [address] 72724- 8481 Mar, Hypercholesteremia E78.0 ; Chronic obstructive pulmonary disease, unspecified COPD type J44.9 and PSVT (paroxysmal supraventricular tachycardia) I47.1 [facility] [address] [id number] [place] [address] 81098- 0327 Mar, Type 2 diabetes mellitus with diabetic polyneuropathy E11.42 [facility] [id number] [place] [address] 09460- 4350 February, [place] [address] [id number] [place] [address] 42552- 5436 February, PSVT (paroxysmal supraventricular tachycardia) I47.1 [place] [address] [place] [id number] [place] [address] 48475- 2024 February, COPD exacerbation J44.1 [place] [address] [place] [id number] [place] [address] 05862- 1731 February, COPD exacerbation J44.1 [place] [address] [place] [id number] [place] [address] 99664- 1979 February, [place] [address] [place] [id number] [place] [address] 44820- 6651 February, [place] [address] [place] [id number] [place] [address] 85524- 1901 February, Type 2 diabetes mellitus with diabetic polyneuropathy E11.42 and Chronic obstructive pulmonary disease, unspecified COPD type J44.9 [place] [address] [place] [id number] [place] [address] 29310- 1332 February, [place] [address] [place] [id number] [place] [address] 99807- 7968 Jan, Type 2 diabetes mellitus with diabetic polyneuropathy E11.42 and Chronic GERD K21.9 [place] [address] [place] [id number] [place] [address] 19014- 6093 Jan, Type 2 diabetes mellitus with diabetic polyneuropathy E11.42 ; Mixed hyperlipidemia E78.2 ; Chronic obstructive pulmonary disease, unspecified COPD type J44.9 ; Hematochezia K92.1 and Degenerative disc disease, lumbar M51.[address] [id number] [id number] 10 Jan, 2018 Chronic ischemic heart disease I25.9 [place] [address] [place] [id number] [place] [address] 81755- 6779 Jan, PAD (peripheral artery disease) I73.9 and Type 2 diabetes mellitus with diabetic polyneuropathy E11.42 [place] [address] [place] [id number] [place] [address] 70119- 0851 Dec, Type 2 diabetes mellitus with diabetic polyneuropathy E11.42 ; Hematochezia K92.1 ; PAD (peripheral artery disease) I73.9 ; Chronic ischemic heart disease I25.9 and Weakness of left lower extremity R29.898 [place] [address] [place] [id number] [place] [address] 12742- 6516 Dec, Type 2 diabetes mellitus with diabetic polyneuropathy E11.42 [place] [address] [place] [id number] [place] [address] 68913- 9439 Nov, Type 2 diabetes mellitus with diabetic polyneuropathy E11.42 and PAD (peripheral artery disease) I73.9 [place] [address] [place] [address] 34062- 5198 Oct, Type 2 diabetes mellitus with diabetic polyneuropathy E11.42 [facility] [address] [id number] [id number] Oct, Type 2 diabetes mellitus with diabetic polyneuropathy E11.42 [place] [address] [place] [address] 24462- 6730 Oct, Type 2 diabetes mellitus with diabetic polyneuropathy E11.42 and Chronic GERD K21.9 [place] [address] [place] [id number] [place] [address] 68253- 6275 Oct, Chronic GERD K21.9 [facility] [address] [place] [address] 94257- 1629 Sep, [facility] [address] [place] [address] [id number] [place] [address] 35586- 9744 Sep, [facility] [address] [address] 4399 Sep, Type 2 diabetes mellitus with diabetic polyneuropathy E11.42 [facility] [address] 6536 Aug, [facility] [address] [id number] [place] [address] 38282- 2276 Aug, [facility] [id number] [place] [address] 08354- 2883 Aug, [facility] [address] [place] [address] [id number] [place] [address] 90303- 0745 Aug, Type 2 diabetes mellitus with diabetic polyneuropathy E11.42 [facility] [address] [place] [address] 75962- 6152 Jul, Type 2 diabetes mellitus with diabetic polyneuropathy E11.42 ; Chronic GERD K21.9 ; Hypercholesteremia E78.0 and PAD (peripheral artery disease) I73.9 [facility] [address] [address]- 1427 Jul, Type 2 diabetes mellitus with diabetic polyneuropathy E11.42 [facility] [address] [address]- 5479 Jul, [address] [id number] Jul, [facility] [address], [place] [address]- 1414 Jul, Type 2 diabetes mellitus with diabetic polyneuropathy E11.42 [facility] [address], [place] [address]- 8880 Jul, [address] [place] [address] [phone] Jul, Mixed hyperlipidemia E78.2 ; Hypertension, unspecified type I10 ; PAD ( peripheral artery disease) I73.9 and Chronic ischemic heart disease I25.9 [facility] [address], [place] [address]- 8202 29 Jun, 2017 Type 2 diabetes mellitus with diabetic polyneuropathy E11.42 [facility] [id number] [place] [address] 54179- 4670 Jun, Type 2 diabetes mellitus with diabetic polyneuropathy E11.42 [facility] [id number] [place] [address] [id number] Jun, [facility] [id number] [place] [address] 43125- 7699 Jun, Type 2 diabetes mellitus with diabetic polyneuropathy E11.42 ; PAD (peripheral artery disease) I73.9 ; Hypercholesteremia E78.0 and Hypertension, unspecified type I10 [facility] [id number] [place] [address] [id number] Jun, Type 2 diabetes mellitus with diabetic polyneuropathy E11.42 [facility] [id number] [place] [address] 29521- 9242 May, [facility] [id number] [place] [address] 37853- 2488 May, [facility] [id number] [place] [address] [id number] Apr, Abscess L02.91 [facility] [id number] [place] [address] [id number] Apr, [facility] [id number] [place] [address] [phone] Apr, Dental caries K02.9 and Dental examination Z01.20 [facility] [id number] [place] [address] [id number] Apr, Type 2 diabetes mellitus with diabetic polyneuropathy E11.42 [facility] [id number] [place] [address] [id number] Mar, Type 2 diabetes mellitus with diabetic polyneuropathy E11.42 [facility] [id number] [place] [address] [id number] Mar, Abscess L02.91 and Type 2 diabetes mellitus with diabetic polyneuropathy E11.[address] [facility] [address] [id number] [place] [id number] February, Abscess L02.[address] [id number] [place] [id number] Jan, [facility] [address] [id number] [place] [id number] Jan, Type 2 diabetes mellitus with diabetic polyneuropathy E11.[address] [id number] [place] [phone] Jan, [facility] [address] [id number] [place] [id number] Jan, Abscess L02.[address] [id number] [place] [id number] Dec, Type 2 diabetes mellitus with diabetic polyneuropathy E11.[address] [id number] [place] [id number] Nov, Type 2 diabetes mellitus with diabetic polyneuropathy E11.[address] [id number] [place] [id number] Oct, Type 2 diabetes mellitus with diabetic polyneuropathy E11.[address] [id number] [place] [id number] Oct, Type 2 diabetes mellitus with diabetic polyneuropathy E11.[address] [facility] [address] [id number] [place] [id number] Oct, Type 2 diabetes mellitus with diabetic polyneuropathy E11.42 and Hydrocele , unspecified hydrocele type N43.3 [facility] [address] [id number] [place] [id number] Sep, Enlarged testicle N50.[address] [facility] [address] [id number] [place] [id number] Sep, Enlarged testicle N50.[address] [facility] [address] [id number] [place] [id number] Sep, Type 2 diabetes mellitus with diabetic polyneuropathy E11.[address] [id number] [id number] Sep, [facility] [address] [id number] [place] [id number] Aug, Dyspepsia R10.13 and Type 2 diabetes mellitus with diabetic polyneuropathy E11.[address] [facility] [address] [id number] [place] [id number] Jul, [facility] [address] [id number] [place] [id number] Jul, Type 2 diabetes mellitus with diabetic polyneuropathy E11.42 and Dyspepsia R10.13 [facility] [address] [id number] [place] [id number] Jun, [facility] [address] [id number] [place] [phone] Jun, [facility] [address] [id number] [id number] Jun, Type 2 diabetes mellitus with diabetic polyneuropathy E11.42 and Boils L02.[address] [facility] [address] [id number] [id number] May, Type 2 diabetes mellitus with diabetic polyneuropathy E11.[address] [facility] [address] [id number][place] [id number] May, Type 2 diabetes mellitus with diabetic polyneuropathy E11.42 and Bloating R14.0 [facility] [address] [id number][place] [id number] Apr, [facility] [address] [id number] [id number] Apr, [facility] [address] [id number][place] [id number] Apr, Type 2 diabetes mellitus with diabetic polyneuropathy E11.[address] [facility] [address] [id number][place] [id number] Mar, [facility] [address] [id number][place] [id number] Mar, Type 2 diabetes mellitus with diabetic polyneuropathy E11.[address] [facility] [address] [id number][place] [id number] February, Type 2 diabetes mellitus with diabetic polyneuropathy E11.42 [facility] [address] [place] [address] [id number] [phone] February, Type 2 diabetes mellitus with diabetic polyneuropathy E11.42 [facility] [address] [place] [address] [id number] [phone] February, Type 2 diabetes mellitus with diabetic polyneuropathy E11.42 and Hypercholesteremia E78.0 [facility] [address] [id number] Jan, Type 2 diabetes mellitus with diabetic polyneuropathy E11.42 [address] [id number] Jan, Type 2 diabetes mellitus with diabetic polyneuropathy E11.42 IMMUNIZATIONS No Known Immunizations SOCIAL HISTORY Never Assessed REASON FOR VISIT Lyrica Early Refill Request PLAN OF CARE VITAL SIGNS MEDICATIONS Medication [...] stents to the right coronary artery by [facility] 05/31/17 Hospitalization History ER Visit for increased heart rate and elevated blood sugar 08/2015 Hospitalization History Had tooth extracted and became septic, was in hospital for several days. 1999 Hospitalization History [facility] discharge dx PAD,CAD, and SVT. Pt has f/u scheduled with 06/0205/31/2016 Hospitalization History PSVT, Hypotension, CAD-[facility] 03/13/18
[2019-03-03] MEDS ORDERED: ASPIRIN 81 MG CHEW (CHILDREN'S ASA) PO ONE (11:30)
[2019-03-03] MEDS ORDERED: NITROGLYCERIN 0.4 MG SL TABS BTL 25'S SL PRN (11:30)
--- OUTSIDE RECORDS SUMMARY | 2019-03-03 11:30 | XMS REPORT | Continuity of Care Document ---
Author Organization Unknown Address Unknown Allergies There is no data. Medications There is no data. Problems There is no data. Procedures There is no data. Results Test Result Range LIPID PANEL - 07/22/17 08:22 CHOLESTEROL, TOTAL 120 mg/dL <200 HDL CHOLESTEROL 28 mg/dL >40 TRIGLYCERIDES 345 mg/dL <150 LDL-CHOLESTEROL 56 mg/dL (calc) NRG CHOL/HDLC RATIO 4.3 (calc) <5.0 NON HDL CHOLESTEROL 92 mg/dL (calc) <130 CMP - 02/09/18 12:27 GLUCOSE 81 mg/dL 65-99 [facility]REA NITROGEN (BUN) 11 mg/dL 7-25 CREATININE 0.74 mg/dL 0.70-1.33 eGFR NON-AFR. [facility] 107 mL/min/1.73m2 > OR=60 eGFR 124 mL/min/1.73m2 > OR=60 BUN/CREATININE RATIO NOT APPLICABLE (calc) 6-22 SODIUM 142 mmol/L 135-146 POTASSIUM 4.2 mmol/L 3.5-5.3 CHLORIDE 107 mmol/L 98-110 CARBON DIOXIDE 26 mmol/L 20-31 CALCIUM 9.5 mg/dL 8.6-10.3 PROTEIN, TOTAL 7.2 g/dL 6.1-8.1 ALBUMIN 4.6 g/dL 3.6-5.1 GLOBULIN 2.6 g/dL (calc) 1.9-3.7 ALBUMIN/GLOBULIN RATIO 1.8 (calc) 1.0-2.5 BILIRUBIN, TOTAL 0.4 mg/dL 0.2-1.2 ALKALINE PHOSPHATASE 67 U/L 40-115 AST 16 U/L 10-35 ALT 14 U/L 9-46 LIVER PANEL (LFT) - 06/25/18 08:41 PROTEIN, TOTAL 7.5 g/dL 6.1-8.1 ALBUMIN 4.5 g/dL 3.6-5.1 GLOBULIN 3.0 g/dL (calc) 1.9-3.7 ALBUMIN/GLOBULIN RATIO 1.5 (calc) 1.0-2.5 BILIRUBIN, TOTAL 0.3 mg/dL 0.2-1.2 ALKALINE PHOSPHATASE 95 U/L 40-115 AST 19 U/L 10-35 ALT 21 U/L 9-46 BILIRUBIN, DIRECT 0.1 mg/dL < OR=0.2 BILIRUBIN, INDIRECT 0.2 mg/dL (calc) 0.2-1.2 [facility] - 09/09/18 10:10 GLUCOSE 148 mg/dL 65-99 UREA NITROGEN (BUN) 9 mg/dL 7-25 CREATININE 0.81 mg/dL 0.70-1.33 eGFR NON-AFR. [facility] 102 mL/min/1.73m2 > OR=60 eGFR 118 mL/min/1.73m2 > OR=60 BUN/CREATININE RATIO NOT APPLICABLE (calc) 6-22 SODIUM 138 mmol/L 135-146 POTASSIUM 4.6 mmol/L 3.5-5.3 CHLORIDE 105 mmol/L 98-110 CARBON DIOXIDE 27 mmol/L 20-32 CALCIUM 9.5 mg/dL 8.6-10.3 PROTEIN, TOTAL 7.0 g/dL 6.1-8.1 ALBUMIN 4.4 g/dL 3.6-5.1 GLOBULIN 2.6 g/dL (calc) 1.9-3.7 ALBUMIN/GLOBULIN RATIO 1.7 (calc) 1.0-2.5 BILIRUBIN, TOTAL 0.5 mg/dL 0.2-1.2 ALKALINE PHOSPHATASE 95 U/L 40-115 AST 17 U/L 10-35 ALT 19 U/L 9-46 Encounters ACCT No. Visit Date/Time Discharge Status Pt. Type Provider Facility Loc./Unit Complaint [id number] 02/26/2019 13:40:00 02/26/2019 23:59:59 CLS Outpatient INDIRA VEE, ESTRELLITA Oleary [facility] [id number] 09/09/2018 09:00:00 Document Registration [id number] 06/25/2018 08:00:00 Document Registration [id number] 02/09/2018 10:30:00 Document Registration [id number] 07/22/2017 08:00:00 Document Registration
[2019-03-03 11:32] LABS: BASOPHILS % (AUTO) 0 % (0-10); EOSINOPHILS # (AUTO) 0.1 10^3/uL (0.0-0.3); EOSINOPHILS % (AUTO) 1 % (0-10); HEMATOCRIT 45 % (40-54); HEMOGLOBIN 15.3 G/DL (13.3-17.7); LYMPHOCYTES # (AUTO) 2.7 X 10^3 (1.0-4.0); LYMPHOCYTES % (AUTO) 31 % (12-44); MEAN CORPUSCULAR HEMOGLOBIN 33 PG (25-34); MEAN CORPUSCULAR HGB CONC 34 G/DL (32-36); MEAN CORPUSCULAR VOLUME 97 FL (80-99); MEAN PLATELET VOLUME 9.4 FL (7.4-10.4); MONOCYTES # (AUTO) 0.7 X 10^3 (0.0-1.0); MONOCYTES % (AUTO) 8 % (0-12); NEUTROPHILS # (AUTO) 5.2 X 10^3 (1.8-7.8); NEUTROPHILS % (AUTO) 60 % (42-75); PLATELET COUNT 217 10^3/uL (130-400); RED CELL DISTRIBUTION WIDTH 12.9 % (10.0-14.5); WHITE BLOOD COUNT 8.7 10^3/uL (4.3-11.0)
--- NOTE | 2019-03-03 11:42 | ED Chest Pain ---
General Chief Complaint: Chest Pain Stated Complaint: CHEST PAIN;SOA Source: patient, family () Exam Limitations: no limitations History of Present Illness Date Seen by Provider: March 03, 2019 Time Seen by Provider: 11:10 Initial Comments 53-year-old male who presents to the emergency room with complaints of increasing chest pain and shortness of breath for the past 4 days. He reports that he has had intermittent substernal chest pain that has caused shortness of breath for the past 4 days. 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 He sees Dr. Zendejas for cardiology. He denies nausea, lightheadedness, vomiting. Rates pain 7 out of 10. Timing/Duration: 3-4 days Severity/Quality: moderate Location: substernal, central Radiation: no radiation Prior CP/Workup: cardiac cath, heart attack ASA po DENITRATOR: No NTG SL DENITRATOR: No Associated Symptoms: shortness of breath Allergies and Home Medications Allergies Coded Allergies: Penicillins (Verified Allergy, Unknown, 01/19/18) Home Medications Acetaminophen 500 Mg Tablet, 1,500-2,000 MG PO Q4H, (Reported) Aspirin 81 Mg Tablet.dr, 81 MG PO DAILY, (Reported) Clopidogrel Bisulfate 75 Mg Tablet, 75 MG PO DAILY, (Reported) Diltiazem HCl 240 Mg Cap.er.24h, 240 MG PO DAILY Prescribed by: PRAKASH GOULD on 03/14/18 1412 Gabapentin 600 Mg Tablet, 600 MG PO TID, (Reported) Linagliptin 5 Mg Tablet, 5 MG PO DAILY, (Reported) Lisinopril 10 Mg Tablet, 10 MG PO DAILY, (Reported) Metformin HCl 1,000 Mg Tab.er.24, 1,000 MG PO BID, (Reported) Metoprolol Succinate 25 Mg Tab.er.24h, 25 MG PO HS, (Reported) Pantoprazole Sodium 40 Mg Tablet.dr, 40 MG PO DAILY, (Reported) Pregabalin 50 Mg Capsule, 50 MG PO BID, (Reported) Rosuvastatin Calcium 40 Mg Tablet, 40 MG PO DAILY, (Reported) Patient Home Medication List Home Medication List Reviewed: Yes Review of Systems Review of Systems Constitutional: see HPI; No chills, No diaphoresis, No fever Respiratory: See HPI, Shortness of Air Cardiovascular: See HPI, Chest Pain All Other Systems Reviewed Negative Unless Noted: Yes Past Poqjdow-Uenrrz-Hptjni Hx Past Med/Social Hx: Reviewed Nursing Past Med/Soc Hx Patient Social History Type Used: Cigarettes 2nd Hand Smoke Exposure: Yes Recent Hopitalizations: No Seasonal Allergies Seasonal Allergies: Yes Past Medical History Surgeries: Yes Appendectomy, Coronary Stent, Vascular Surgery Respiratory: Yes Chronic Bronchitis, Sleep Apnea Currently Using CPAP: No Currently Using BIPAP: No Cardiac: Yes (STENTS X3 HEART, STENTS X2 LEG) Angina, Coronary Artery Disease, High Cholesterol, Hypertension, Peripheral Vascular Neurological: Yes Neuropathy Reproductive Disorders: No Sexually Transmitted Disease: No HIV/AIDS: No Genitourinary: No Gastrointestinal: Yes Abdominal Hernia, Gastroesophageal Reflux, Hemorrhoids, Chronic Diarrhea Musculoskeletal: Yes Back Injury, Chronic Back Pain Endocrine: Yes Diabetes, Insulin dep HEENT: No (missing teeth) Loss of Vision: Bilateral Hearing Impairment: Denies Cancer: No Psychosocial: No Depression Integumentary: No Blood Disorders: No Adverse Reaction/Blood Tranf: No (N/A) Family Medical History Reviewed Nursing Family Hx Alzheimer's disease 19 MOTHER Diabetes mellitus 19 MOTHER FH: [place] (myocardial infarction) 19 FATHER ( at 48 ) FH: pancreatic cancer grandfather Hypercholesterolemia 19 MOTHER Hypertension 19 MOTHER No Pertinent Family Hx, Heart Disease, CAD Over 55 Years Old, Diabetes, Hypertension, Lung Disease, Vascular Disease Physical Exam Vital Signs Vital Signs - First Documented 03/03/19 11:20 Temp 97.0 Pulse 91 Resp 18 B/P (MAP) 163/89 (113) Pulse Ox 97 O2 Delivery Room Air Capillary Refill : Height, Weight, BMI Height: 5'6.00" Weight: 180lbs. 6.0oz. 81.426722rb; 31.6 BMI Method:Stated General Appearance: No Apparent Distress, WD/WN Respiratory: Chest Non Tender, Lungs Clear, Normal Breath Sounds, No Accessory Muscle Use, No Respiratory Distress Cardiovascular: Regular Rate, Rhythm, No Edema, No Gallop, No JVD, No Murmur, Normal Peripheral Pulses Extremity: Normal Capillary Refill Neurologic/Psychiatric: Alert, Oriented x3, Normal Mood/Affect Skin: Normal Color, Warm/Dry Progress/Results/Core Measures Results/Orders Lab Results Laboratory Tests Test 03/03/19 11:25 Range/Units White Blood Count 8.7 4.3-11.0 10^3/uL Red Blood Count 4.68 4.35-5.85 10^6/uL Hemoglobin 15.3 13.3-17.7 G/DL Hematocrit 45 40-54 % Mean Corpuscular Volume 97 80-99 FL Mean Corpuscular Hemoglobin 33 25-34 PG Mean Corpuscular Hemoglobin Concent 34 32-36 G/DL Red Cell Distribution Width 12.9 10.0-14.5 % Platelet Count 217 130-400 10^3/uL Mean Platelet Volume 9.4 7.4-10.4 FL Neutrophils (%) (Auto) 60 42-75 % Lymphocytes (%) (Auto) 31 12-44 % Monocytes (%) (Auto) 8 0-12 % Eosinophils (%) (Auto) 1 0-10 % Basophils (%) (Auto) 0 0-10 % Neutrophils # (Auto) 5.2 1.8-7.8 X 10^3 Lymphocytes # (Auto) 2.7 1.0-4.0 X 10^3 Monocytes # (Auto) 0.7 0.0-1.0 X 10^3 Eosinophils # (Auto) 0.1 0.0-0.3 10^3/uL Basophils # (Auto) 0.0 0.0-0.1 10^3/uL Prothrombin Time 13.2 12.2-14.7 SEC INR Comment 1.0 0.8-1.4 Activated Partial Thromboplast Time 37 H 24-35 SEC Sodium Level 138 135-145 MMOL/L Potassium Level 4.3 3.6-5.0 MMOL/L Chloride Level 108 H 98-107 MMOL/L Carbon Dioxide Level 17 L 21-32 MMOL/L Anion Gap 13 5-14 MMOL/L Blood Urea Nitrogen 11 7-18 MG/DL Creatinine 0.90 0.60-1.30 MG/DL Estimat Glomerular Filtration Rate > 60 BUN/Creatinine Ratio 12 Glucose Level 254 H 70-105 MG/DL Calcium Level 9.5 8.5-10.1 MG/DL Corrected Calcium 9.3 8.5-10.1 MG/DL Magnesium Level 2.2 1.8-2.4 MG/DL Total Bilirubin 0.3 0.1-1.0 MG/DL Aspartate Amino Transf (AST/SGOT) 20 5-34 U/L Alanine Aminotransferase (ALT/SGPT) 15 0-55 U/L Alkaline Phosphatase 77 40-136 U/L Myoglobin 113.5 H 10.0-92.0 NG/ML Troponin I < 0.028 <0.028 NG/ML B-Type Natriuretic Peptide 22.4 <100.0 PG/ML Total Protein 7.3 6.4-8.2 GM/DL Albumin 4.2 3.2-4.5 GM/DL My Orders Orders - RACHEL BURCIAGA Cbc With Automated Diff (03/03/19 11:19) Magnesium (03/03/19:) Chest 1 View, Ap/Pa Only (03/03/19:) Cardiac Profile 1 (03/03/19 11:) Comprehensive Metabolic Panel (03/03/19:) Myoglobin Serum (03/03/19:) Protime With Inr (03/03/19:) Partial Thromboplastin Time (03/03/19:) O2 (03/03/19:) Monitor-Rhythm Ecg Trace Only (03/03/19:) Lipid Panel (03/04/19 06:00) Ed Iv/Invasive Line Start (03/03/19:) BNP (03/03/19 11:) Aspirin Chewable Tablet (Baby Aspirin Ch (03/03/19 11:30) Nitroglycerin 0.4 Mg Btl 25's (Nitrostat (03/03/19 11:30) Medications Given in ED Current Medications Medications Dose Ordered Sig/Marin Route Start Time Stop Time Status Last Admin Dose Admin Aspirin 324 mg ONCE ONCE PO 03/03/19 11:30 03/03/19 11:31 DC 03/03/19 11:45 324 MG Nitroglycerin 1 TAB Q 5 MIN X 3 NEEDED PRN SL 03/03/19 11:30 03/03/19 11:45 0.4 MG Vital Signs/I&O 03/03/19 11:20 Temp 97.0 Pulse 91 Resp 18 B/P (MAP) 163/89 (113) Pulse Ox 97 O2 Delivery Room Air Progress Progress Note : Time: 12:00 Progress Note I have reexamined the patient at this time. I've informed him of his laboratory and imaging studies. He is pain-free and his shortness of air has resolved after 1 nitroglycerin sublingual. 1225: I have discussed the case with Dr. Rosario at this time. She agrees with plans of admission with cardiology consult. 1230: I have discussed the case with Dr. Zendejas at this time and he agrees with admission and consult thing. The patient agrees with plan of care, plans for admission. Initial ECG Impression Date: March 03, 2019 Initial ECG Impression Time: 11:14 Initial ECG Rate: 86 Initial ECG Rhythm: Normal Sinus Initial ECG Intervals: Normal Initial ECG Impression: Normal Initial ECG Comparisson: Unchanged Diagnostic Imaging Diagonstic Imaging: Xray Plain Films/CT/US/NM/MRI: chest Comments [facility] [place] [place] NAME: MOR WOODS [facility] REC#: [id number] PT STATUS: REG ER : 1965 PHYSICIAN: RACHEL BURCIAGA ADMIT DATE: 03/03/19/ER Draft Date of Exam:03/03/19 CHEST 1 VIEW, AP/PA ONLY INDICATION: Chest pain COMPARISON: 03/13/2018 FINDINGS: Single frontal view of the chest demonstrates normal heart size and pulmonary vascularity. The lungs are well aerated and clear. No large pleural effusion or pneumothorax is seen. The visualized osseous structures show no acute abnormalities. IMPRESSION: 1. No acute cardiopulmonary process. Dictated on workstation # [id number] Dict: 03/03/19 1154 Trans: 03/03/19 1157 [facility] [id number] Interpreted by: GOKUL REDMOND MD Electronically signed by: Reviewed: Reviewed by Me Departure Communication (Admissions) Time/Spoke to Admitting Phy: 12:25 Dr. Rosario Time/Spoke to Consulting Phy: 12:30 Dr. Zendejas Impression Primary Impression: Chest pain Disposition: ADMITTED INPATIENT Condition: Stable/Unchanged Admissions Decision to Admit Reason: Admit from ER (General) Decision to Admit/Date: March 03, 2019 Time/Decision to Admit Time: 12:33 Departure-Patient Inst. Referrals: ESTRELLITA PANDYA MD (PCP/Family) Primary Care Physician RACHEL BURCIAGA March 03, 2019 11:42
[2019-03-03 11:50] LABS: PROTHROMBIN TIME PATIENT 13.2 SEC (12.2-14.7)
[2019-03-03 11:58] LABS: ALANINE AMINOTRANSFERASE 15 U/L (0-55); ALBUMIN 4.2 GM/DL (3.2-4.5); ALKALINE PHOSPHATASE 77 U/L (40-136); BILIRUBIN,TOTAL 0.3 MG/DL (0.1-1.0); BUN/CREATININE RATIO 12; CALCIUM 9.5 MG/DL (8.5-10.1); CARBON DIOXIDE 17 MMOL/L (21-32); CHLORIDE 108 MMOL/L (98-107); GFR ESTIMATED > 60; GLUCOSE 254 MG/DL (70-105); MAGNESIUM 2.2 MG/DL (1.8-2.4); POTASSIUM 4.3 MMOL/L (3.6-5.0); SODIUM 138 MMOL/L (135-145); TOTAL PROTEIN 7.3 GM/DL (6.4-8.2)
--- NOTE | 2019-03-03 11:58 | Diagnostic Imaging Report ---
INDICATION: Chest pain COMPARISON: 03/13/2018 FINDINGS: Single frontal view of the chest demonstrates normal heart size and pulmonary vascularity. The lungs are well aerated and clear. No large pleural effusion or pneumothorax is seen. The visualized osseous structures show no acute abnormalities. IMPRESSION: 1. No acute cardiopulmonary process. Dictated by: Dictated on workstation # [id number]
--- NOTE | 2019-03-03 12:05 | NUR ---
PATIENT REPORTS PAIN AND PRESSURE IN CHEST GONE.
--- NOTE | 2019-03-03 12:55 | NUR ---
CALLED FOR A ROOM
[2019-03-03] MEDS ORDERED: fentaNYL INJECTION 100 MCG/2 ML AMP ONE (13:08)
[2019-03-03] MEDS ORDERED: LIDOCAINE 1% INJ 20 ML 20 ML VIAL ONE (13:08)
[2019-03-03] MEDS ORDERED: HEParin (CATH LAB) 2,000 ML IV ONE (13:08)
[2019-03-03] MEDS ORDERED: MIDAZOLAM 5 MG/5 ML (VERSED) VIAL ONE (13:08)
[2019-03-03] MEDS ORDERED: NS IV 1000 ML 1,000 ML ONE (13:08)
--- NOTE | 2019-03-03 13:20 | NUR ---
TO COMMUNITY AIDE
--- NOTE | 2019-03-03 13:24 | Cardiology History & Physical ---
HPI-Cardiology Cardiology Consultation Date of Consultation 03/03/19 Date of Admission Time Seen by Provider: 13:19 Indication: chest pain HPI 53 years old gentleman with history of coronary artery disease, was in his usual state of health until this morning, has been having occasional episode of retrosternal chest pain, reported that he started having chest pain this morning described it as diffuse achiness and heaviness all over his chest associated with shortness of breath, persisted until he took 3 sublingual nitroglycerin which relieved his chest pain. He was having some nausea but no vomiting. He has been having mild diarrhea on and off. He is concerned that it might be secondary to the new medication that he was started recently ( Trulicity), no palpitation, syncope or near syncopal episodes PMH-Cardiology Seasonal Allergies Seasonal Allergies: Yes Surgeries Yes Respiratory Yes COPD Cardiovascular Yes (STENTS X3 HEART, STENTS X2 LEG) Palpitations, High Cholesterol, Hypertension, Coronary Artery Disease Neurological Yes Neuropathy Reproductive System Hx Reproductive Disorders: No Sexually Transmitted Disease: No HIV/AIDS: No Genitourinary No Gastrointestinal Yes Abdominal Hernia, Gastroesophageal Reflux, Hemorrhoids, Chronic Diarrhea Musculoskeletal Yes Back Injury, Chronic Back Pain Endocrine Yes Diabetes, Insulin dep HEENT No (missing teeth) Loss of Vision: Bilateral Hearing Impairment: Denies Cancer No Psychosocial No Depression Integumentary No Blood Transfusions No Adverse Rxn to Transfusion: No (N/A) Other PMHx Discussed below Social History Patient Social History Marrital Status: Employed/Student: employed Alcohol Use: Denies Use Recreational Drug Use: No Recent Foreign Travel: No Contact w/other who traveled: No Recent Infectious Disease Expo: No Family Hx Significant Family History: No Pertinent Family Hx, Heart Disease, CAD Over 55 Years Old, Diabetes, Hypertension, Lung Disease, Vascular Disease Family History: Alzheimer's disease 19 MOTHER Diabetes mellitus 19 MOTHER FH: [place] (myocardial infarction) 19 FATHER ( at 48 ) FH: pancreatic cancer grandfather Hypercholesterolemia 19 MOTHER Hypertension 19 MOTHER ROS-Cardiology Review of Systems General: No Chills, No Night Sweats, No Fatigue, No Malaise, No Appetite HEENT: No Head Aches, No Visual Changes, No Eye Pain, No Ear Pain, No Dysphasia , No Sinus Congestion, No Post Nasal Drip, No Sore Throat Pulmonary: Dyspnea; No Cough, No Pleuritic Chest Pain Cardiovascular: Chest Pain; No: Palpitations, Orthopnea, Paroxysmal Noc. Dyspnea, Edema, Lt Headedness Gastrointestinal: Nausea, Abdominal Pain, Diarrhea; No: Vomiting, Constipation , Melena, Hematochezia Genitourinary: No Dysuria, No Frequency, No Incontinence, No Hematuria, No Retention Musculoskeletal: No: neck pain, shoulder pain, arm pain, back pain, hand pain, leg pain, foot pain Neurological: No: Weakness, Numbness, Incoordination, Change in speech, Confusion, Seizures Home Medications & Allergies Allergies: Coded Allergies: Penicillins (Verified Allergy, Unknown, 01/19/18) Exam-Cardiology Vital Signs Vital Signs Date Time Temp Pulse Resp B/P (MAP) Pulse Ox O2 Delivery O2 Flow Rate FiO2 03/03/19 11:20 97.0 91 18 163/89 (113) 97 Room Air Exam General Appearance: Alert, Oriented X3, Cooperative, No Acute Distress HEENT: Atraumatic, PERRLA Respiratory: Clear to Auscultation, Normal Air Movement Cardiovascular: Regular Rate, Normal S1, Normal S2, No Murmurs Abdominal: Normal Bowel Sounds, Soft, No Tenderness, No Hepatosplenomegaly, No Masses Extremities: No Clubbing, No Cyanosis, No Edema, Normal Pulses, No Tenderness/ Swelling Skin: No Rashes, No Breakdown, No Significant Lesion Neuro: Normal Gait, Normal Speech, Strength at 5/5 X4 Ext, Normal Tone, Sensation Intact Psych/Mental Status: Mental Status NL, Mood NL Results Labs Labs Laboratory Tests 03/03/19 11:25: White Blood Count 8.7, Red Blood Count 4.68, Hemoglobin 15.3, Hematocrit 45, Mean Corpuscular Volume 97, Mean Corpuscular Hemoglobin 33, Mean Corpuscular Hemoglobin Concent 34, Red Cell Distribution Width 12.9, Platelet Count 217, Mean Platelet Volume 9.4, Neutrophils (%) (Auto) 60, Lymphocytes (%) (Auto) 31, Monocytes (%) (Auto) 8, Eosinophils (%) (Auto) 1, Basophils (%) (Auto) 0, Neutrophils # (Auto) 5.2, Lymphocytes # (Auto) 2.7, Monocytes # (Auto) 0.7, Eosinophils # (Auto) 0.1, Basophils # (Auto) 0.0, Prothrombin Time 13.2, INR Comment 1.0, Activated Partial Thromboplast Time 37H, Sodium Level 138, Potassium Level 4.3, Chloride Level 108H, Carbon Dioxide Level 17L, Anion Gap 13 , Blood Urea Nitrogen 11, Creatinine 0.90, Estimat Glomerular Filtration Rate > 60, BUN/Creatinine Ratio 12, Glucose Level 254H, Calcium Level 9.5, Corrected Calcium 9.3, Magnesium Level 2.2, Total Bilirubin 0.3, Aspartate Amino Transf ( AST/SGOT) 20, Alanine Aminotransferase (ALT/SGPT) 15, Alkaline Phosphatase 77, Myoglobin 113.5H, Troponin I < 0.028, B-Type Natriuretic Peptide 22.4, Total Protein 7.3, Albumin 4.2 A/P-Cardiology Admission Diagnosis Unstable angina Coronary artery disease Hypertension Hyperlipidemia Admission Status: Observation Assessment/Plan Unstable angina, chest pain responsive to nitroglycerin, no acute EKG changes, troponin is normal, myoglobin is mildly elevated, patient had extensive history with multiple stents, planning to proceed with cardiac catheterization possible PTCA Coronary artery disease and severe peripheral arterial disease, cardiac catheterization was done on May 31, 2017 showing total occlusion of the right coronary artery large dominant artery successful complex intervention with multiple balloons and stents with excellent results, deployed 3 overlapping stents Xience Alpine 2.5 38 followed by 2.533 then 2.512 mm down to the bifurcation, the stents were expanded proximally to 3.0 mm and distally to 2.6 mm, significant dilatation at the overlapping area. Mild to moderate disease in the rest of the coronary system. Most recent cardiac catheterization done August 06, 2017 revealed patent 3 stents in the right coronary artery with mild disease in the distal right, nonobstructive disease, planning to proceed with cardiac catheterization Peripheral vascular disease- history of stent to the left SFA in the past. Most recent peripheral angiogram done August 06, 2017 revealed patent stent in the left SFA with good flow down to the foot. Mild to moderate disease in the right SFA with good flow down to the foot. Most recent DOMENICA June 2018 within normal limits, having more frequent episodes of leg cramps and pain. I will reevaluate DOMENICA Peripheral neuropathy, still having numbness, followed by primary care physician. Supraventricular tachycardia, maintained on Cardizem and beta ursula. Hypertension, restart home medication monitor blood pressure Hyperlipidemia, monitor lipids Diabetes mellitus, followed and managed by primary care physician Tobaccoism, educated on smoking cessation, still active smoker. We discussed again the importance of smoking cessation to prevent progression of his coronary artery disease and peripheral arterial disease Strong family history of heart disease with father in his 40s with myocardial infarction Obesity, BMI 29, educated on weight loss Clinical Quality Measures AMI/AHF: ASA po Prior to arrival: HAMMAD Bianchi MD March 03, 2019 13:24
--- NOTE | 2019-03-03 13:25 | Cardiac Procedure Note-CS/ASA ---
Pre-Procedure Note Pre-Op Procedure Note H&P Reviewed The H&P was reviewed, patient examined and no changes noted. Date H&P Reviewed: March 03, 2019 Time H&P Reviewed: 13:24 Conscious Sedation Pre-Proced Time 13:24 ASA Score 3 For ASA 3 and 4: Consider anesthesia and medical clearance. Also, for patients with a history of failed moderate sedation consider anesthesia. Airway Lungs Heart ASA score ASA 1: a normal healthy patient ASA 2: a patient with a mild systemic disease (mid diabetes, controlled hypertension, obesity x ASA 3: a patient with a severe systemic disease that limits activity (angina , COPD, prior Myocardial infarction) ASA 4: a patient with an incapacitating disease that is a constant threat to life (CHF, renal failure) ASA 5: a moribund patient not expected to survive 24 hrs. (ruptured aneurysm) ASA 6: a declared brain- patient whose organs are being harvested. For emergent operations, add the letter E after the classification Mallampati Classification Grade 3 Sedation Plan Analgesia, Amnesia, Plan communicated to team members, Discussed options with patient/fam, Discussed risks with patient/fam The patient is an appropriate candidate to undergo the planned procedure, sedation, and anesthesia. The patient immediately re-assessed prior to indication. HAMMAD PYLE MD March 03, 2019 13:25
[2019-03-03] MEDS ORDERED: NS IV 1000 ML 1,000 ML IV SCH (13:54)
[2019-03-03] MEDS ORDERED: METF-479 PO (13:59)
[2019-03-03] MEDS ORDERED: PATIENT MAY USE OWN MEDS, ALL PO SCH (14:00)
--- NOTE | 2019-03-03 14:00 | Discharge Inst-Post CATH ---
Discharge Inst-CATH/EP Post Cardiac Cath/EP D/C Inst Follow Up/Plan Hold metformin for [address] Zendejas's office in 2-4 weeks <b>CARDIAC CATH/EP PROCEDURE DISCHARGE INSTRUCTIONS</b> Cardiac Rehab Please be expecting a follow up call from Cardiac Rehab within in one week. ACTIVITY * Go Home directly and rest. * Limit activity of the leg (or wrist if it was used) for 7 days including aerobics, swimming, jogging, bicycling, etc. * Restrict stair-climbing for 7 days if possible, if not, climb up with your non -cath leg, then bring together on the same step. * Avoid lifting, pushing, pulling or excessive movement of the affected extremity for 7 days. * Customary sexual activity may be resumed after 2 days-use caution not to use a position that strains or causes pain to the affected extremity. * No driving for 24 hours. * NO SMOKING. * Avoid straining for bowel movements for 7 days. * Gentle walking on level ground is allowed. * Returning to work will depend on the type of procedure and the results. Your doctor will discuss this with you. CALL YOUR DOCTOR FOR ANY OF THE FOLLOWING: *If bleeding from the puncture site occurs- Apply gentle pressure to site with clean cloth and call your doctor or EMS. * If a knot or lump forms under the skin, increases in size, or causes pain. * If bruising appears to be worsening or moving further down your leg instead of disappearing. * Temperature above 101 F. CARE OF YOUR GROIN INCISION; * Bruising or purple discoloration of the skin near the puncture site is common. * You may shower only, no bathtub bathing for 5 days. Be careful to avoid slipping as your leg may feel stiff. * If a closure device was used on your femoral artery, please see the attached guide regarding care of the device and your leg. * Leave dressing on FOR 24 hours. CARE OF YOUR WRIST INCISION; * Bruising or purple discoloration of the skin near the puncture site is common. * You may shower. * DO NOT submerge wrist. * Leave dressing on FOR 24 hours. HAMMAD ZENDEJAS MD March 03, 2019 14:00
--- NOTE | 2019-03-03 14:04 | Cardiac Cath Report ---
Cardiac Cath Report Physician (s)/Interior Surface Insulation Worker (s) Physician HAMMAD PYLE MD Pre-Procedure Diagnosis Pre-Procedure Diagnosis: coronary artery disease Post-Procedure Note Procedure Start Date: March 03, 2019 Name of Procedure: left heart catheterization Findings/Procedure Note PROCEDURE NOTE: 53-year-old gentleman with history of coronary artery disease, 3 sequential stents to the right coronary artery done in 2017, history of hypertension, hyperlipidemia and diabetes mellitus, admitted with unstable angina, acute onset chest pain responsive to nitroglycerin more significant than his baseline chest discomfort. Discussed the Plan decided to proceed with cardiac catheterization. After explaining the procedure to the patient, all pros and cons were explained , all questions were answered. The patient signed the consent and then he was placed on the cardiac catheterization laboratory. Groin was prepped SL fashion local anesthesia was used. Sheath placed in the right femoral artery. JL catheter was used for the coronary system, I was unable to get good intubation with JL4, use 3.5 with excellent results. Angiogram was done. JR Diagnostic catheter was used to access the right carotid system, multiple views were obtained, it was prolapsed left ventricular cavity and pressure was measured, pullback LV to aorta was done. At the end of the procedure the sheath was removed. Closure device was used FINDINGS: Hemodynamics LV 126/9 end-diastolic pressure of 9 Aorta 130/69 mean of 92 ANATOMY: Left Main has no obstructive disease Left Anterior Descending has mild disease nonobstructive disease Left Circumflex has mild disease nonobstructive disease Right Coronory Artery is dominant artery with known to have multiple stents in the proximal mid and distal portion overlapping stent that were patent, small vessel disease distally LV Gram was not done pressure was measured CONCLUSION: 1. Patent stents in the proximal, mid and distal right coronary artery was small vessel disease at the distal right PDA 2. Mild disease in the LAD and circumflex system 3. Normal left ventricular end-diastolic pressure, normal left ventricular gram was done DISCUSSION AND RECOMMENDATION: medical therapy is returned to normal intervention is needed Anesthesia Type: Conscious Sedation Estimated blood loss (mL): 15 ml Contrast Amount: 42 ml Total Radiation Dose: 482 mGy Post-Procedure Diagnosis Post-operative diagnosis: Unstable angina Coronary artery disease Hypertension Hyperlipidemia Diabetes mellitus HAMMAD PYLE MD March 03, 2019 14:04
--- NOTE | 2019-03-03 16:22 | NUR ---
Pt is Tenri[facility]. Declines sacraments expecting discharge.
--- OUTSIDE RECORDS SUMMARY | 2019-03-03 16:26 | XMS REPORT | Continuity of Care Document ---
[...] 7-25 CREATININE 0.74 mg/dL 0.70-1.33 eGFR NON-AFR. NAURUAN 107 mL/min/1.73m2 > OR=60 eGFR 124 mL/min/1.73m2 [...] OR=0.2 BILIRUBIN, INDIRECT 0.2 mg/dL (calc) 0.2-1.2 [facility] - 09/09/18 10:10 GLUCOSE 148 mg/dL 65-99 UREA NITROGEN (BUN) 9 mg/dL 7-25 CREATININE 0.81 mg/dL 0.70-1.33 eGFR NON-AFR. NAURUAN 102 mL/min/1.73m2 > OR=60 eGFR 118 mL/min/1.73m2 [...] Status Pt. Type Provider Facility Loc./Unit Complaint [id number] 02/26/2019 13:40:00 02/26/2019 23:59:59 CLS Outpatient INDIRA VEE, ESTRELLITA Oleary [facility] [id number] 09/09/2018 09:00:00 Document Registration [id number] 06/25/2018 08:00:00 Document Registration [id number] 02/09/2018 10:30:00 Document Registration [id number] 07/22/2017 08:00:00 Document Registration
--- OUTSIDE RECORDS SUMMARY | 2019-03-03 16:41 | XMS REPORT | Continuity of Care Document ---
[...] 7-25 CREATININE 0.74 mg/dL 0.70-1.33 eGFR NON-AFR. PAK[place]ANI 107 mL/min/1.73m2 > OR=60 eGFR 124 mL/min/1.73m2 [...] OR=0.2 BILIRUBIN, INDIRECT 0.2 mg/dL (calc) 0.2-1.2 [facility] - 09/09/18 10:10 GLUCOSE 148 mg/dL 65-99 UREA NITROGEN (BUN) 9 mg/dL 7-25 CREATININE 0.81 mg/dL 0.70-1.33 eGFR NON-AFR. [place] 102 mL/min/1.73m2 > OR=60 eGFR 118 mL/min/1.73m2 [...] Status Pt. Type Provider Facility Loc./Unit Complaint [id number] 02/26/2019 13:40:00 02/26/2019 23:59:59 CLS Outpatient INDIRA VEE, ESTRELLITA Oleary [facility] [id number] 09/09/2018 09:00:00 Document Registration [id number] 06/25/2018 08:00:00 Document Registration [id number] 02/09/2018 10:30:00 Document Registration [id number] 07/22/2017 08:00:00 Document Registration
--- NOTE | 2019-03-03 18:30 | NUR ---
Pt ambulated in [place] without difficulty
== END 2019-03-03 18:41 | disposition home or self-care (01) ==
LOC: EDUNIT# 11:09 → ER 11:10 → UNDOADMOB 13:10 → 4TH 13:10 → CATH 13:41 → ICU 14:15 → CATH 18:41
PROVIDERS: ATTEND Internal Medicine Cardiovascular Disease
DX: I25.119 Atherosclerotic heart disease of native coronary artery with unspecified angina pectoris (principal); I10 Essential (primary) hypertension; E78.5 Hyperlipidemia, unspecified; E11.40 Type 2 diabetes mellitus with diabetic neuropathy, unspecified; J44.9 Chronic obstructive pulmonary disease, unspecified; E78.00 Pure hypercholesterolemia, unspecified; R00.2 Palpitations; Z95.5 Presence of coronary angioplasty implant and graft; K21.9 Gastro-esophageal reflux disease without esophagitis; K52.9 Noninfective gastroenteritis and colitis, unspecified; Z79.4 Long term (current) use of insulin; F32.9 Major depressive disorder, single episode, unspecified; Z88.0 Allergy status to penicillin; I47.1 Supraventricular tachycardia; F17.210 Nicotine dependence, cigarettes, uncomplicated; E66.9 Obesity, unspecified; Z82.49 Family history of ischemic heart disease and other diseases of the circulatory system; Z68.29 Body mass index [BMI] 29.0-29.9, adult; I25.2 Old myocardial infarction; Z79.82 Long term (current) use of aspirin; Z79.899 Other long term (current) drug therapy
CPT/HCPCS: 36415; 71045; 80053; 83735; 83874; 83880; 84484; 85025; 85610; 85730; 93005; 93041; 93458

== ENCOUNTER 2019-10-14 16:43 | Emergency (ER) | payer MEDICAID, OTHER ==
[~2019-10-14] VITALS: Ht 167 cm; Wt 82.7 kg
[~2019-10-14 16:43] MED LIST changes: -OMEP20CA12 PO; +OMEP20CA13 PO
[2019-10-14] MEDS ORDERED: NS IV 1000 ML 1,000 ML IV ONE (17:38)
[2019-10-14 17:39] LABS: BASOPHILS % (AUTO) 0 % (0-10); EOSINOPHILS # (AUTO) 0.1 10^3/uL (0.0-0.3); EOSINOPHILS % (AUTO) 1 % (0-10); HEMATOCRIT 52 % (40-54); HEMOGLOBIN 17.2 G/DL (13.3-17.7); LYMPHOCYTES # (AUTO) 2.6 X 10^3 (1.0-4.0); LYMPHOCYTES % (AUTO) 28 % (12-44); MEAN CORPUSCULAR HEMOGLOBIN 32 PG (25-34); MEAN CORPUSCULAR HGB CONC 33 G/DL (32-36); MEAN CORPUSCULAR VOLUME 97 FL (80-99); MEAN PLATELET VOLUME 9.1 FL (7.4-10.4); MONOCYTES % (AUTO) 11 % (0-12); NEUTROPHILS # (AUTO) 5.4 X 10^3 (1.8-7.8); NEUTROPHILS % (AUTO) 59 % (42-75); PLATELET COUNT 249 10^3/uL (130-400); RED CELL DISTRIBUTION WIDTH 13.5 % (10.0-14.5); WHITE BLOOD COUNT 9.2 10^3/uL (4.3-11.0)
--- NOTE | 2019-10-14 17:51 | Diagnostic Imaging Report ---
INDICATION: Cough and dyspnea. EXAMINATION: PA and lateral views of the chest were obtained. COMPARISON: Study of 03/03/2019. FINDINGS: Heart size and pulmonary vascularity are within normal limits, and the lungs are clear, bilaterally. There is a right coronary artery stent. IMPRESSION: Unremarkable chest. Dictated by: Dictated on workstation # [id number]
[2019-10-14 17:58] LABS: PROTHROMBIN TIME PATIENT 13.5 SEC (12.2-14.7)
[2019-10-14 18:09] LABS: CARBON DIOXIDE 22 MMOL/L (21-32); CHLORIDE 102 MMOL/L (98-107); POTASSIUM 3.9 MMOL/L (3.6-5.0); SODIUM 137 MMOL/L (135-145)
[2019-10-14 18:10] LABS: ALANINE AMINOTRANSFERASE 16 U/L (0-55); ALBUMIN 4.4 GM/DL (3.2-4.5); ALKALINE PHOSPHATASE 59 U/L (40-136); BILIRUBIN,TOTAL 0.4 MG/DL (0.1-1.0); BUN/CREATININE RATIO 20; CALCIUM 9.3 MG/DL (8.5-10.1); CREATININE SERUM 1.41 MG/DL (0.60-1.30); GFR ESTIMATED 53; GLUCOSE 136 MG/DL (70-105); MAGNESIUM 1.8 MG/DL (1.6-2.4); TOTAL PROTEIN 7.7 GM/DL (6.4-8.2)
[2019-10-14] MEDS ORDERED: LACTATED RINGERS 1,000 ML IV ONE (18:31)
[2019-10-14] MEDS ORDERED: ONDA4TAB11 SL (18:43)
--- NOTE | 2019-10-14 18:44 | ED General ---
General Chief Complaint: Cardiac/General Problems Stated Complaint: HEART RACING Nursing Triage Note: STATES STARTING YESTERDAY HE HAS NOT FELT WELL. STATES HE HAS FELT HIS HEART RACING ALONG WITH N/V. Nursing Sepsis Screen: No Definite Risk Source of Information: Patient Exam Limitations: No Limitations History of Present Illness Date Seen by Provider: Oct 14, 2019 Time Seen by Provider: 17:28 Initial Comments This 54-year-old gentleman presents to the emergency room with complaints of rapid heart rate up to 845 and low systolic blood pressure down to 92 at home. He has not been feeling well for several days. He has not had anything solid to eat since October 12. He reports mild diarrhea and vomiting 3. He has felt short of breath and fatigue. He has pain in his mid back. Blood sugars have been running high. He has a chronic unchanged cough. Allergies and Home Medications Allergies Coded Allergies: Penicillins (Verified Allergy, Unknown, 01/19/18) Home Medications Acetaminophen 500 Mg Tablet, 1,500-2,000 MG PO Q4H, (Reported) Aspirin 81 Mg Tablet.dr, 81 MG PO DAILY, (Reported) Clopidogrel Bisulfate 75 Mg Tablet, 75 MG PO DAILY, (Reported) Diltiazem HCl 240 Mg Cap.er.24h, 240 MG PO DAILY Prescribed by: PRAKASH GOULD on 03/14/18 1412 Gabapentin 600 Mg Tablet, 600 MG PO TID, (Reported) Linagliptin 5 Mg Tablet, 5 MG PO DAILY, (Reported) Lisinopril 10 Mg Tablet, 10 MG PO DAILY, (Reported) Metformin HCl 1,000 Mg Tab.er.24, 1,000 MG PO BID hold metformin for 48 Hours Prescribed by: HAMMAD PYLE on 03/03/19 1359 Metoprolol Succinate 25 Mg Tab.er.24h, 25 MG PO HS, (Reported) Ondansetron 4 Mg Tab.rapdis, 4 MG SL Q4H PRN for NAUSEA/VOMITING Prescribed by: CHETAN BLACKMON on 10/14/19 1843 Pantoprazole Sodium 40 Mg Tablet.dr, 40 MG PO DAILY, (Reported) Pregabalin 50 Mg Capsule, 50 MG PO BID, (Reported) Rosuvastatin Calcium 40 Mg Tablet, 40 MG PO DAILY, (Reported) Patient Home Medication List Home Medication List Reviewed: Yes Review of Systems Review of Systems Constitutional: see HPI EENTM: no symptoms reported Respiratory: see HPI Cardiovascular: see HPI Gastrointestinal: see HPI Genitourinary: no symptoms reported Musculoskeletal: no symptoms reported Skin: no symptoms reported Psychiatric/Neurological: No Symptoms Reported Hematologic/Lymphatic: No Symptoms Reported Immunological/Allergic: no symptoms reported Past Bjvtzip-Yhkoni-Jsnnpq Hx Past Med/Social Hx: Reviewed and Corrections made Patient Social History Alcohol Use: Denies Use Recreational Drug Use: No Smoking Status: Current Everyday Smoker Type Used: Cigarettes 2nd Hand Smoke Exposure: Yes Recent Foreign Travel: No Contact w/Someone Who Travel: No Recent Infectious Disease Expo: No Recent Hopitalizations: No Seasonal Allergies Seasonal Allergies: Yes Past Medical History Surgeries: Yes Appendectomy, Coronary Stent, Vascular Surgery Respiratory: Yes Chronic Bronchitis, Sleep Apnea, COPD Currently Using CPAP: No Currently Using BIPAP: No Cardiac: Yes (STENTS X3 HEART, STENTS X2 LEG, SVT) Angina, Coronary Artery Disease, High Cholesterol, Hypertension, Peripheral Vascular Neurological: Yes Neuropathy Reproductive Disorders: No Sexually Transmitted Disease: No HIV/AIDS: No Genitourinary: No Gastrointestinal: Yes Abdominal Hernia, Gastroesophageal Reflux, Hemorrhoids, Chronic Diarrhea Musculoskeletal: Yes Back Injury, Chronic Back Pain Endocrine: Yes Diabetes, Insulin dep HEENT: No (missing teeth) Loss of Vision: Bilateral Hearing Impairment: Denies Cancer: No Psychosocial: No Depression Integumentary: No Blood Disorders: No Adverse Reaction/Blood Tranf: No (N/A) Family Medical History Alzheimer's disease 19 MOTHER Diabetes mellitus 19 MOTHER FH: [place] (myocardial infarction) 19 FATHER ( at 48 ) FH: pancreatic cancer grandfather Hypercholesterolemia 19 MOTHER Hypertension 19 MOTHER No Pertinent Family Hx, Heart Disease, CAD Over 55 Years Old, Diabetes, Hypertension, Lung Disease, Vascular Disease Physical Exam Vital Signs Vital Signs - First Documented 10/14/19 10/14/19 17:18 19:10 Temp 36.6 Pulse 111 Resp 17 B/P (MAP) 99/67 (78) Pulse Ox 98 O2 Delivery Room Air Capillary Refill : Less Than 3 Seconds Height, Weight, BMI Height: 5'6.00" Weight: 180lbs. 6.0oz. 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 Norm as Tested Skin: Normal Color, Warm/Dry Progress/Results/Core Measures Suspected Sepsis Recent Fever Within 48 Hours: No Infection Criteria Present: None New/Unexplained Altered Menta: No Sepsis Screen: No Definite Risk SIRS Temperature: Pulse: 111 Respiratory Rate: Laboratory Tests 10/14/19 17:29: White Blood Count 9.2 Blood Pressure 99 /67 Mean: 78 Laboratory Tests 10/14/19 17:29: Creatinine 1.41H, INR Comment 1.0, Platelet Count 249, Total Bilirubin 0.4 Results/Orders Lab Results Laboratory Tests Test 10/14/19 17:29 Range/Units White Blood Count 9.2 4.3-11.0 10^3/uL Red Blood Count 5.41 4.35-5.85 10^6/uL Hemoglobin 17.2 13.3-17.7 G/DL Hematocrit 52 40-54 % Mean Corpuscular Volume 97 80-99 FL Mean Corpuscular Hemoglobin 32 25-34 PG Mean Corpuscular Hemoglobin Concent 33 32-36 G/DL Red Cell Distribution Width 13.5 10.0-14.5 % Platelet Count 249 130-400 10^3/uL Mean Platelet Volume 9.1 7.4-10.4 FL Neutrophils (%) (Auto) 59 42-75 % Lymphocytes (%) (Auto) 28 12-44 % Monocytes (%) (Auto) 11 0-12 % Eosinophils (%) (Auto) 1 0-10 % Basophils (%) (Auto) 0 0-10 % Neutrophils # (Auto) 5.4 1.8-7.8 X 10^3 Lymphocytes # (Auto) 2.6 1.0-4.0 X 10^3 Monocytes # (Auto) 1.0 0.0-1.0 X 10^3 Eosinophils # (Auto) 0.1 0.0-0.3 10^3/uL Basophils # (Auto) 0.0 0.0-0.1 10^3/uL Prothrombin Time 13.5 12.2-14.7 SEC INR Comment 1.0 0.8-1.4 Activated Partial Thromboplast Time 34 24-35 SEC Sodium Level 137 135-145 MMOL/L Potassium Level 3.9 3.6-5.0 MMOL/L Chloride Level 102 98-107 MMOL/L Carbon Dioxide Level 22 21-32 MMOL/L Anion Gap 13 5-14 MMOL/L Blood Urea Nitrogen 28 H 7-18 MG/DL Creatinine 1.41 H 0.60-1.30 MG/DL Estimat Glomerular Filtration Rate 53 BUN/Creatinine Ratio 20 Glucose Level 136 H 70-105 MG/DL Calcium Level 9.3 8.5-10.1 MG/DL Corrected Calcium 9.0 8.5-10.1 MG/DL Magnesium Level 1.8 1.6-2.4 MG/DL Total Bilirubin 0.4 0.1-1.0 MG/DL Aspartate Amino Transf (AST/SGOT) 14 5-34 U/L Alanine Aminotransferase (ALT/SGPT) 16 0-55 U/L Alkaline Phosphatase 59 40-136 U/L Myoglobin 250.6 H 10.0-92.0 NG/ML Troponin I < 0.028 <0.028 NG/ML C-Reactive Protein High Sensitivity 2.44 H 0.00-0.50 MG/DL B-Type Natriuretic Peptide 13.9 <100.0 PG/ML Total Protein 7.7 6.4-8.2 GM/DL Albumin 4.4 3.2-4.5 GM/DL Micro Results Microbiology 10/14/19 Influenza Types A,B Antigen (ASH) - Final, Complete My Orders Orders - CHETAN MORALES MD Cbc With Automated Diff (10/14/19 17:29) Magnesium (10/14/19 17:29) Ekg Tracing (10/14/19 17:29) Comprehensive Metabolic Panel (10/14/19 17:29) Myoglobin Serum (10/14/19 17:29) Protime With Inr (10/14/19 17:29) Partial Thromboplastin Time (10/14/19 17:29) O2 (10/14/19 17:29) Monitor-Rhythm Ecg Trace Only (10/14/19 17:29) Ed Iv/Invasive Line Start (10/14/19 17:29) Chest Pa/Lat (2 View) (10/14/19 17:38) BNP (10/14/19 17:38) Influenza A And B Antigens (10/14/19 17:38) Ns Iv 1000 Ml (Sodium Chloride 0.9%) (10/14/19 17:38) Hs C Reactive Protein (10/14/19 17:29) Troponin I (10/14/19 17:29) Lactated Ringers (Lr 1000 Ml Iv Solution (10/14/19 18:31) Medications Given in ED Current Medications Medications Dose Ordered Sig/Marin Route Start Time Stop Time Status Last Admin Dose Admin Lactated Ringer's 1,000 ml @ 0 mls/hr Q0M ONCE IV 10/14/19 18:31 10/14/19 18:32 DC 10/14/19 18:37 1,000 MLS/HR Sodium Chloride 1,000 ml @ 0 mls/hr Q0M ONCE IV 10/14/19 17:38 10/14/19 17:40 DC 10/14/19 17:50 1,000 MLS/HR Vital Signs/I&O 10/14/19 19:10 Temp 36.6 Pulse 90 Resp 17 B/P (MAP) 127/76 (78) Pulse Ox 98 O2 Delivery Room Air Capillary Refill : Less Than 3 Seconds Blood Pressure Mean: 78 Progress Note : Progress Note Patient received 2 L of IV fluid with much improvement in his symptoms. Labs were relatively unremarkable except for slight elevation in BUN and creatinine. Patient was ultimately dismissed home feeling much better. ECG Initial ECG Impression Date: Oct 14, 2019 Initial ECG Impression Time: 17:25 Initial ECG Rate: 104 Initial ECG Rhythm: S.Tach Comment Sinus tachycardia. No ST elevation or depression. No axis deviation. Diagnostic Imaging Diagonstic Imaging: Xray Plain Films/CT/US/NM/MRI: chest Comments Chest x-ray viewed by me. Report reviewed. See report below: NAME: MOR WOODS [facility] REC#: [id number] PT STATUS: REG ER : 1965 PHYSICIAN: CHETAN MORALES MD ADMIT DATE: 10/14/19/ER Signed Date of Exam:10/14/19 CHEST PA/LAT (2 VIEW) INDICATION: Cough and dyspnea. EXAMINATION: PA and lateral views of the chest were obtained. COMPARISON: Study of 03/03/2019. FINDINGS: Heart size and pulmonary vascularity are within normal limits, and the lungs are clear, bilaterally. There is a right coronary artery stent. IMPRESSION: Unremarkable chest. Dictated by: Dictated on workstation # [id number] Dict: 10/14/19 1748 Trans: 10/14/191899 [facility] [id number] Interpreted by: VINCENT BEE MD Electronically signed by: VINCENT BEE MD 10/14/191899 Departure Impression Primary Impression: Hypovolemia Additional Impressions: Viral syndrome Nausea and vomiting Qualified Codes: R11.2 - Nausea with vomiting, unspecified Dyspnea Qualified Codes: R06.00 - Dyspnea, unspecified Disposition: 01 HOME, SELF-CARE Condition: Improved Departure-Patient Inst. Decision time for Depature: 18:42 Referrals: ESTRELLITA PANDYA MD (PCP/Family) Primary Care Physician Patient Instructions: VIRAL SYNDROME Add. Discharge Instructions: Drink plenty of clear liquids and gradually advance your diet with small quantities of bland food as tolerated. For discomfort you may take Tylenol (acetaminophen) up to 1000 mg every 6 hours as needed. Continue your usual medications as previously prescribed. Return to the emergency room if you have worsening symptoms. Fill the Zofran (ondansetron) and use as prescribed if you have recurrent nausea and vomiting. All discharge instructions reviewed with patient and/or family. Voiced understanding. Scripts Ondansetron (Ondansetron Odt) 4 Mg Tab.rapdis 4 MG SL Q4H PRN for NAUSEA/VOMITING, #10 TAB Prov: CHETAN MORALES MD 10/14/19 CHETAN MORALES MD Oct 14, 2019 18:44
[2019-10-14 19:10] VITALS: BP 127/76
== END 2019-10-14 19:09 | disposition home or self-care (01) ==
LOC: EDUNIT# 16:43 → ER 16:44
DX: E86.1 Hypovolemia (principal); B34.9 Viral infection, unspecified; J44.9 Chronic obstructive pulmonary disease, unspecified; I25.10 Atherosclerotic heart disease of native coronary artery without angina pectoris; E78.00 Pure hypercholesterolemia, unspecified; I10 Essential (primary) hypertension; E11.40 Type 2 diabetes mellitus with diabetic neuropathy, unspecified; K21.9 Gastro-esophageal reflux disease without esophagitis; F32.9 Major depressive disorder, single episode, unspecified; F17.210 Nicotine dependence, cigarettes, uncomplicated; Z90.49 Acquired absence of other specified parts of digestive tract; Z95.5 Presence of coronary angioplasty implant and graft; Z88.0 Allergy status to penicillin; Z79.02 Long term (current) use of antithrombotics/antiplatelets; Z79.82 Long term (current) use of aspirin; Z79.84 Long term (current) use of oral hypoglycemic drugs; Z82.49 Family history of ischemic heart disease and other diseases of the circulatory system; Z80.0 Family history of malignant neoplasm of digestive organs
CPT/HCPCS: 36415; 71046; 80053; 83735; 83874; 83880; 84484; 85025; 85610; 85730; 86141; 87804; 93005; 93041; 96360

== ENCOUNTER 2019-10-16 00:43 | Emergency (ER) | payer MEDICAID ==
[~2019-10-16] VITALS: Ht 167.7 cm; Wt 82.7 kg
[~2019-10-16 00:43] MED LIST changes: +ONDA4TAB11 SL
[2019-10-16] MEDS ORDERED: NS IV 1000 ML 1,000 ML IV ONE (01:01)
[2019-10-16 01:13] LABS: BASOPHILS % (AUTO) 0 % (0-10); EOSINOPHILS # (AUTO) 0.2 10^3/uL (0.0-0.3); EOSINOPHILS % (AUTO) 2 % (0-10); HEMATOCRIT 49 % (40-54); HEMOGLOBIN 16.2 G/DL (13.3-17.7); LYMPHOCYTES # (AUTO) 3.9 X 10^3 (1.0-4.0); LYMPHOCYTES % (AUTO) 37 % (12-44); MEAN CORPUSCULAR HEMOGLOBIN 32 PG (25-34); MEAN CORPUSCULAR HGB CONC 33 G/DL (32-36); MEAN CORPUSCULAR VOLUME 96 FL (80-99); MEAN PLATELET VOLUME 9.4 FL (7.4-10.4); MONOCYTES # (AUTO) 1.3 X 10^3 (0.0-1.0); MONOCYTES % (AUTO) 12 % (0-12); NEUTROPHILS # (AUTO) 5.3 X 10^3 (1.8-7.8); NEUTROPHILS % (AUTO) 49 % (42-75); PLATELET COUNT 228 10^3/uL (130-400); RED CELL DISTRIBUTION WIDTH 13.4 % (10.0-14.5); WHITE BLOOD COUNT 10.7 10^3/uL (4.3-11.0)
[2019-10-16] MEDS ORDERED: DILTIAZEM IV FOR DRIP 125 MG in NS (IVPB) 100 ML IV SCH (01:15)
[2019-10-16 01:23] LABS: INR 0.9 (0.8-1.4); PROTHROMBIN TIME PATIENT 12.9 SEC (12.2-14.7)
[2019-10-16 01:32] LABS: ALANINE AMINOTRANSFERASE 20 U/L (0-55); ALBUMIN 4.3 GM/DL (3.2-4.5); ALKALINE PHOSPHATASE 81 U/L (40-136); BILIRUBIN,TOTAL 0.2 MG/DL (0.1-1.0); BUN/CREATININE RATIO 13; CALCIUM 9.3 MG/DL (8.5-10.1); CARBON DIOXIDE 16 MMOL/L (21-32); CHLORIDE 109 MMOL/L (98-107); CREATININE SERUM 0.93 MG/DL (0.60-1.30); GFR ESTIMATED > 60; GLUCOSE 121 MG/DL (70-105); MAGNESIUM 1.6 MG/DL (1.6-2.4); POTASSIUM 3.7 MMOL/L (3.6-5.0); SODIUM 139 MMOL/L (135-145); TOTAL PROTEIN 7.2 GM/DL (6.4-8.2)
--- NOTE | 2019-10-16 03:29 | ED Cardiac General ---
History of Present Illness General Chief Complaint: Chest Pain Stated Complaint: HEART PALPITATIONS Nursing Triage Note: PATIENT STATES HE COULD FEEL HIS HEART BEATING REALLY FAST AND HE CHECKED HIS RATE AT HOME AND FOUND IT TO BE 137. DENIES PAIN AT THIS TIME. Source: patient Exam Limitations: no limitations History of Present Illness Date Seen by Provider: Oct 16, 2019 Time Seen by Provider: 00:50 Initial Comments This 54-year-old gentleman with history of atrial fibrillation presents to the emergency room with complaints of chest tightness and palpitations since 21:30. He takes metoprolol and Cardizem cd which she has been compliant with. He took his metoprolol little early today. Usually this will stop an episode but it did not tonight. He presently does not take any anticoagulants for stroke prevention. He takes aspirin and Plavix. 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 ASA po OUTSIDE SALES ADVERTISING EXECUTIVE: No Allergies and Home Medications Allergies Coded Allergies: Penicillins (Verified Allergy, Unknown, 01/19/18) Home Medications Acetaminophen 500 Mg Tablet, 1,500-2,000 MG PO Q4H, (Reported) Apixaban 5 Mg Tablet, 5 MG PO BID Prescribed by: CHETAN BLACKMON on 10/16/19 0342 Aspirin 81 Mg Tablet.dr, 81 MG PO DAILY, (Reported) Clopidogrel Bisulfate 75 Mg Tablet, 75 MG PO DAILY, (Reported) Diltiazem HCl 240 Mg Cap.er.24h, 240 MG PO DAILY Prescribed by: PRAKASH GOULD on 03/14/18 1412 Gabapentin 600 Mg Tablet, 600 MG PO TID, (Reported) Linagliptin 5 Mg Tablet, 5 MG PO DAILY, (Reported) Lisinopril 10 Mg Tablet, 10 MG PO DAILY, (Reported) Metformin HCl 1,000 Mg Tab.er.24, 1,000 MG PO BID hold metformin for 48 Hours Prescribed by: HAMMAD ZENDEJAS on 03/03/19 1359 Metoprolol Succinate 25 Mg Tab.er.24h, 25 MG PO HS, (Reported) Ondansetron 4 Mg Tab.rapdis, 4 MG SL Q4H PRN for NAUSEA/VOMITING Prescribed by: CHETAN BLACKMON on 10/14/19 1843 Pantoprazole Sodium 40 Mg Tablet.dr, 40 MG PO DAILY, (Reported) Pregabalin 50 Mg Capsule, 50 MG PO BID, (Reported) Rosuvastatin Calcium 40 Mg Tablet, 40 MG PO DAILY, (Reported) Patient Home Medication List Home Medication List Reviewed: Yes Review of Systems Review of Systems Constitutional: no symptoms reported EENTM: No Symptoms Reported Respiratory: No Symptoms Reported Cardiovascular: See HPI Gastrointestinal: No Symptoms Reported Genitourinary: No Symptoms Reported Musculoskeletal: no symptoms reported Skin: no symptoms reported Psychiatric/Neurological: No Symptoms Reported Endocrine: No Symptoms Reported Hematologic/Lymphatic: No Symptoms Reported Past Civmmbp-Tfmuzj-Blcwqv Hx Patient Social History Alcohol Use: Denies Use Recreational Drug Use: No Type Used: Cigarettes 2nd Hand Smoke Exposure: Yes Recent Foreign Travel: No Contact w/Someone Who Travel: No Recent Infectious Disease Expo: No Recent Hopitalizations: No Physical Abuse: No Sexual Abuse: No Mistreated: No Fear: No Seasonal Allergies Seasonal Allergies: Yes Past Medical History Surgeries: Yes Appendectomy, Coronary Stent, Vascular Surgery Respiratory: Yes Chronic Bronchitis, Sleep Apnea, COPD Currently Using CPAP: No Currently Using BIPAP: No Cardiac: Yes (STENTS X3 HEART, STENTS X2 LEG, SVT) Angina, Atrial Fibrillation (atrial tachycardia), Coronary Artery Disease, High Cholesterol, Hypertension, Peripheral Vascular Neurological: Yes Neuropathy Reproductive Disorders: No Sexually Transmitted Disease: No HIV/AIDS: No Genitourinary: No Gastrointestinal: Yes Abdominal Hernia, Gastroesophageal Reflux, Hemorrhoids, Chronic Diarrhea Musculoskeletal: Yes Back Injury, Chronic Back Pain Endocrine: Yes (PATIENT REPORTS HE IS NOT INSULIN DEPENDENT) Diabetes, Insulin dep, Diabetes, Non-Insulin dep HEENT: No (missing teeth) Loss of Vision: Bilateral Hearing Impairment: Denies Cancer: No Psychosocial: No Depression Integumentary: No Blood Disorders: No Adverse Reaction/Blood Tranf: No (N/A) Family Medical History Alzheimer's disease 19 MOTHER Diabetes mellitus 19 MOTHER FH: [place] (myocardial infarction) 19 FATHER ( at 48 ) FH: pancreatic cancer grandfather Hypercholesterolemia 19 MOTHER Hypertension 19 MOTHER No Pertinent Family Hx, Heart Disease, CAD Over 55 Years Old, Diabetes, Hypertension, Lung Disease, Vascular Disease Physical Exam Vital Signs Vital Signs - First Documented 10/16/19 00:51 Temp 36.6 Pulse 133 Resp 18 B/P (MAP) 103/79 (87) Pulse Ox 96 O2 Delivery Room Air Capillary Refill : Less Than 3 Seconds Height, Weight, BMI Height: 5'6.00" Weight: 180lbs. 6.0oz. 81.120619ni; 29.00 BMI Method:Stated General Appearance: No Apparent Distress, WD/WN HEENT: PERRL/EOMI, Normal ENT Inspection Neck: Normal Inspection Respiratory: Lungs Clear, Normal Breath Sounds, No Accessory Muscle Use, No Respiratory Distress Cardiovascular: No Edema, No Murmur, Tachycardia Gastrointestinal: Normal Bowel Sounds, Non Tender, Soft Extremity: Normal Inspection, Swelling (mild lower extremity edema) Neurologic/Psychiatric: Alert, Oriented x3, No Motor/Sensory Deficits, Normal Mood/Affect Skin: Normal Color, Warm/Dry Progress/Results/Core Measures Results/Orders Lab Results Laboratory Tests Test 10/16/19 00:57 Range/Units White Blood Count 10.7 4.3-11.0 10^3/uL Red Blood Count 5.06 4.35-5.85 10^6/uL Hemoglobin 16.2 13.3-17.7 G/DL Hematocrit 49 40-54 % Mean Corpuscular Volume 96 80-99 FL Mean Corpuscular Hemoglobin 32 25-34 PG Mean Corpuscular Hemoglobin Concent 33 32-36 G/DL Red Cell Distribution Width 13.4 10.0-14.5 % Platelet Count 228 130-400 10^3/uL Mean Platelet Volume 9.4 7.4-10.4 FL Neutrophils (%) (Auto) 49 42-75 % Lymphocytes (%) (Auto) 37 12-44 % Monocytes (%) (Auto) 12 0-12 % Eosinophils (%) (Auto) 2 0-10 % Basophils (%) (Auto) 0 0-10 % Neutrophils # (Auto) 5.3 1.8-7.8 X 10^3 Lymphocytes # (Auto) 3.9 1.0-4.0 X 10^3 Monocytes # (Auto) 1.3 H 0.0-1.0 X 10^3 Eosinophils # (Auto) 0.2 0.0-0.3 10^3/uL Basophils # (Auto) 0.0 0.0-0.1 10^3/uL Prothrombin Time 12.9 12.2-14.7 SEC INR Comment 0.9 0.8-1.4 Activated Partial Thromboplast Time 34 24-35 SEC Sodium Level 139 135-145 MMOL/L Potassium Level 3.7 3.6-5.0 MMOL/L Chloride Level 109 H 98-107 MMOL/L Carbon Dioxide Level 16 L 21-32 MMOL/L Anion Gap 14 5-14 MMOL/L Blood Urea Nitrogen 12 7-18 MG/DL Creatinine 0.93 0.60-1.30 MG/DL Estimat Glomerular Filtration Rate > 60 BUN/Creatinine Ratio 13 Glucose Level 121 H 70-105 MG/DL Calcium Level 9.3 8.5-10.1 MG/DL Corrected Calcium 9.1 8.5-10.1 MG/DL Magnesium Level 1.6 1.6-2.4 MG/DL Total Bilirubin 0.2 0.1-1.0 MG/DL Aspartate Amino Transf (AST/SGOT) 23 5-34 U/L Alanine Aminotransferase (ALT/SGPT) 20 0-55 U/L Alkaline Phosphatase 81 40-136 U/L Myoglobin 83.7 10.0-92.0 NG/ML Troponin I < 0.028 <0.028 NG/ML Total Protein 7.2 6.4-8.2 GM/DL Albumin 4.3 3.2-4.5 GM/DL TSH [place] Testing 1.74 0.35-4.94 UIU/ML My Orders Orders - CHETAN MORALES MD Ed Iv/Invasive Line Start (10/16/19 00:50) Ekg Tracing (10/16/19 00:50) Monitor-Rhythm Ecg Trace Only (10/16/19 00:50) Cbc With Automated Diff (10/16/19 00:50) Comprehensive Metabolic Panel (10/16/19 00:50) Magnesium (10/16/19 00:50) Chest 1 View, Ap/Pa Only (10/16/19 01:01) Protime With Inr (10/16/19 01:01) Partial Thromboplastin Time (10/16/19 01:01) O2 (10/16/19 01:01) Troponin I (10/16/19 01:01) Ns Iv 1000 Ml (Sodium Chloride 0.9%) (10/16/19 01:01) Ns (Ivpb) (Sodium C... W/Diltiazem Iv Fo (10/16/19 01:15) Myoglobin Serum (10/16/19 00:57) Ekg Tracing (10/16/19 02:30) Thyroid Analyzer (10/16/19 02:32) Apixaban Tablet (Eliquis Tablet) (10/16/19 03:30) Medications Given in ED Vital Signs/I&O 10/16/19 10/16/19 10/16/19 10/16/19 00:51 00:51 01:12 04:00 Temp 36.6 Pulse 133 137 86 Resp 18 24 13 B/P (MAP) 103/79 (87) 108/88 133/84 (95) Pulse Ox 96 94 96 O2 Delivery Room Air Room Air Room Air Blood Pressure Mean: 95 Progress Progress Note : Progress Note Patient was started on a Cardizem drip which resulted in conversion to normal sinus rhythm. Workup was otherwise unremarkable. Case was discussed with Dr. Durbin. He recommended stopping Plavix and is starting Eliquis. First dose of Eliquis was given in the ER. No changes to medication regimen were recommended. He is to follow-up with his operating room specialist on Friday. EKG #1: EKG Time: 00:51 Rate: 137 Comment Atrial tachycardia with no acute ST elevation or depression. EKG #2: EKG Time: 02:07 Rate: 94 Rhythm: Normal Sinus Intervals: Normal ECG Impression: Normal Comment Normal sinus rhythm with no ST elevation or depression. No abnormal intervals or axis deviation. Diagnostic Imaging Diagonstic Imaging: Xray Plain Films/CT/US/NM/MRI: chest Comments Chest x-ray viewed by me. Report not yet available. No acute abnormalities appreciated. Departure Impression Primary Impression: Atrial tachycardia Additional Impression: Chest tightness Disposition: 01 HOME, SELF-CARE Condition: Improved Departure-Patient Inst. Decision time for Depature: 03:36 Referrals: ESTRELLITA PANDYA MD (PCP/Family) Primary Care Physician Patient Instructions: Atrial Flutter Add. Discharge Instructions: Your rapid heart rate appears to be from an atrial tachycardia, possibly atrial flutter. Continue your Cardizem CD and metoprolol XL at your current doses to control heart rate. Continue taking aspirin as previously prescribed. Stop Plavix (clopidogrel) when you are able to take Eliquis. Instead take Eliquis as prescribed. If you are not able to obtain Eliquis promptly, continue with Plavix until you can get the Eliquis. Follow-up with Dr. Zendejas as soon as possible. Please call his office on Friday morning. Please return to care if you have persistent high heart rates as you did this evening. Return to care also few have other concerning symptoms such as chest pain, shortness of breath, etc. All discharge instructions reviewed with patient and/or family. Voiced understanding. Scripts Apixaban (Eliquis) 5 Mg Tablet 5 MG PO BID, #60 TAB Prov: CHETAN MORALES MD 10/16/19 Copy Copies To 1: HAMMAD ZENDEJAS MD Copies To 2: ESTRELLITA PANDYA MD, JOSHUA T MD Oct 16, 2019 03:29
[2019-10-16] MEDS ORDERED: APIXABAN 5 MG (ELIQUIS) TABLET PO ONE (03:30)
[2019-10-16] MEDS ORDERED: APIX5TAB PO (03:42)
[2019-10-16 04:00] VITALS: BP 133/84
--- NOTE | 2019-10-16 06:55 | Diagnostic Imaging Report ---
EXAM: CHEST 1 VIEW, AP/PA ONLY. INDICATION: Chest pain. COMPARISON: 10/14/2019. FINDINGS: Normal heart size and pulmonary vascularity. No dense consolidation, pleural effusion or pneumothorax. No acute osseous findings. No significant change. IMPRESSION: No acute cardiopulmonary findings. Dictated by: Dictated on workstation # [id number]
== END 2019-10-16 04:01 | disposition home or self-care (01) ==
LOC: EDUNIT# 00:43 → ER 00:45
DX: I47.1 Supraventricular tachycardia (principal); J44.9 Chronic obstructive pulmonary disease, unspecified; I10 Essential (primary) hypertension; E78.00 Pure hypercholesterolemia, unspecified; I25.10 Atherosclerotic heart disease of native coronary artery without angina pectoris; I48.91 Unspecified atrial fibrillation; E11.40 Type 2 diabetes mellitus with diabetic neuropathy, unspecified; K21.9 Gastro-esophageal reflux disease without esophagitis; F32.9 Major depressive disorder, single episode, unspecified; Z90.89 Acquired absence of other organs; Z88.0 Allergy status to penicillin; Z79.01 Long term (current) use of anticoagulants; Z79.82 Long term (current) use of aspirin; Z79.02 Long term (current) use of antithrombotics/antiplatelets; Z79.84 Long term (current) use of oral hypoglycemic drugs; Z77.22 Contact with and (suspected) exposure to environmental tobacco smoke (acute) (chronic); Z82.49 Family history of ischemic heart disease and other diseases of the circulatory system
CPT/HCPCS: 36415; 71045; 80053; 83735; 83874; 84443; 84484; 85025; 85610; 85730; 93005; 93041; 96365; 96366

== ENCOUNTER 2019-11-15 09:30 | Outpatient (RCR) | payer MEDICAID, OTHER ==
[~2019-11-15 09:30] MED LIST changes: +APIX5TAB PO; +DILT240C92 PO; -DILT240C97 PO; -DOXY100T19 PO; +DOXY100T31 PO; -METO-387 PO; +MTP25TSR PO; -OMEP20CA13 PO; +OMEP20CA18 PO; +SIMV20TA26 PO; -SIMV20TA3 PO
== END 2020-01-20 | disposition home or self-care (01) ==
LOC: CARD 09:30
PROVIDERS: ATTEND Physician Assistant
DX: I25.10 Atherosclerotic heart disease of native coronary artery without angina pectoris (principal); J44.9 Chronic obstructive pulmonary disease, unspecified; E11.9 Type 2 diabetes mellitus without complications; E78.2 Mixed hyperlipidemia
CPT/HCPCS: 93270

== ENCOUNTER → 2020-04-26 | Day surgery (SDC) | payer MEDICAID ==
[~2020-04-26] VITALS: Ht 167 cm; Wt 84.0 kg
[~2020-04-26] MED LIST changes: +LIDOCAINE 1% INJ 20 ML 20 ML VIAL INJ ONE; +LIDOCAINE 1% INJ 20 ML 20 ML VIAL ONE
[2020-04-26 11:09] VITALS: BP 134/84
[2020-04-26 11:13] LABS: BILIRUBIN,URINE NEGATIVE (NEGATIVE); CLARITY,URINE CLEAR; COLOR,URINE YELLOW; GLUCOSE, URINE (UA) 3+ (NEGATIVE); KETONES,URINE NEGATIVE (NEGATIVE); LEUKOCYTE ESTERASE ,URINE NEGATIVE (NEGATIVE); NITRITE,URINE NEGATIVE (NEGATIVE); PH,URINE 5.5 (5-9); PROTEIN,URINE TRACE (NEGATIVE)
[2020-04-26 11:24] LABS: BACTERIA,URINE NEGATIVE /HPF; SQUAMOUS EPITHELIAL CELL,UR RARE /HPF
--- NOTE | 2020-04-26 11:52 | Implantation of Loop Monitor ---
Implant of Loop Monitior IMPLANTATION OF LOOP MONITOR REPORT DATE OF PROCEDURE: 04/26/20 PREOP DIAGNOSIS: Early erosion of implanted loop recorder POSTOP DIAGNOSIS: Repositioned loop recorder PROCEDURE DETAILS: The patient is a 54 male with history of paroxysmal atrial fibrillation requiring long-term surveillance. Loop monitor [employer] with serial number [id number] was implanted on March 29, 2020, reported to the office and felt that the Loop starting to erode, the skin was still intact. I scheduled him to reposition the Loop recorder. Local anesthesia was applied using sterile technique I made a small skin incision and I was able to push the Loop deeper and more lateral from the initial incision. Area was clear. No complication was noted ANESTHESIA: Local anesthesia with lidocaine. COMPLICATIONS: None CONTRAST/FLUOROSCOPY: None CONCLUSION: Successful repositioning of Loop recorder with no complication FINAL DIAGNOSIS: Paroxysmal atrial fibrillation Palpitation Coronary artery disease HAMMAD PYLE MD Apr 26, 2020 11:51
--- OUTSIDE RECORDS SUMMARY | 2020-04-26 12:12 | XMS REPORT | Continuity of Care Document ---
Author Organization Unknown Address Unknown Phone Unavailable Allergies Active Description Code Type Severity Reaction Onset Reported/Identified Relationship to Patient Clinical Status Yes Penicillins [id number] Drug Aller gy Unknown N/A 01/19/2018 Medications There is no data. Problems Date Dx Coded Attending Type Code Diagnosis Diagnosed By 10/09/2016 FELECIA HOLLOWAY CFNP Ot N43.3 HYDROCELE, UNSPECIFIED 10/28/2016 FELECIA HOLLOWAY CFNP Ot N43.3 HYDROCELE, UNSPECIFIED 10/28/2016 FELECIA HOLLOWAY CFNP Ot N43.3 HYDROCELE, UNSPECIFIED 10/29/2016 FELECIA HOLLOWAY CFNP Ot N43.3 HYDROCELE, UNSPECIFIED 01/18/2017 ROSALINO COLEP Ot E11.9 TYPE 2 DIABETES MELLITUS WITHOUT COMPLIC 01/18/2017 ROSALINO COLE CHAIN SPLITTER Ot F17.210 NICOTINE DEPENDENCE, CIGARETTES, UNCOMPL 01/18/2017 KELSEY ROSALINO CHAIN SPLITTER Ot I10 ESSENTIAL (PRIMARY) HYPERTENSION 01/18/2017 ROSALINO COLE CHAIN SPLITTER Ot L02.413 CUTANEOUS ABSCESS OF RIGHT UPPER LIMB 01/18/2017 ROSALINO COLE CHAIN SPLITTER Ot Z23 ENCOUNTER FOR IMMUNIZATION 01/18/2017 ROSALINO COLEP Ot Z79.4 CONSTRUCTION ECONOMIST (CURRENT) USE OF INSULIN 01/18/2017 ROSALINO COLE CHAIN SPLITTER Ot Z79.84 CONSTRUCTION ECONOMIST (CURRENT) USE OF ORAL HYPOGLYC 01/18/2017 ROSALINO COLE CHAIN SPLITTER Ot Z79.899 OTHER ASSISTED (CURRENT) DRUG THERAPY 01/20/2017 ROSALINO COLEP Ot E11.9 TYPE 2 DIABETES MELLITUS WITHOUT COMPLIC 01/20/2017 ROSALINO COLE CHAIN SPLITTER Ot F17.210 NICOTINE DEPENDENCE, CIGARETTES, UNCOMPL 01/20/2017 KELSEY ROSALINO CHAIN SPLITTER Ot I10 ESSENTIAL (PRIMARY) HYPERTENSION 01/20/2017 ROSALINO COLE CHAIN SPLITTER Ot L02.413 CUTANEOUS ABSCESS OF RIGHT UPPER LIMB 01/20/2017 ROSALINO COLE CHAIN SPLITTER Ot Z23 ENCOUNTER FOR IMMUNIZATION 01/20/2017 ROSALINO COLEP Ot Z79.4 CONSTRUCTION ECONOMIST (CURRENT) USE OF INSULIN 01/20/2017 ROSALINO COLE LACHELLE Ot Z79.84 CONSTRUCTION ECONOMIST (CURRENT) USE OF ORAL HYPOGLYC 01/20/2017 KELSEY ROSALINO LAROSE Ot Z79.899 OTHER ASSISTED (CURRENT) DRUG THERAPY 02/07/2017 FELECIA HOLLOWAY Ot N43.3 HYDROCELE, UNSPECIFIED 06/01/2017 ESTRELLITA JACOBSON MD Ot E11.43 TYPE 2 DIABETES W DIABETIC AUTONOMIC (PO 06/01/2017 ESTRELLITA JACOBSON MD, Ot E11.51 TYPE 2 DIABETES W DIABETIC PERIPHERAL AN 06/01/2017 ESTRELLITA JACOBSON MD, Ot E66 .9 OBESITY, UNSPECIFIED 06/01/2017 ESTRELLITA JACOBSON MD, Ot E78 .5 HYPERLIPIDEMIA, UNSPECIFIED 06/01/2017 ESTRELLITA JACOBSON MD Ot F17.210 NICOTINE DEPENDENCE, CIGARETTES, UNCOMPL 06/01/2017 ESTRELLITA JACOBSON MD Ot I10 ESSENTIAL (PRIMARY) HYPERTENSION 06/01/2017 ESTRELLITA JACOBSON MD, Ot I25.110 ATHSCL HEART DISEASE OF [place] COR ART W 06/01/2017 ESTRELLITA JACOBSON MD Ot I47 .1 SUPRAVENTRICULAR TACHYCARDIA 06/01/2017 ESTRELLITA JACOBSON MD, Ot I70 .0 ATHEROSCLEROSIS OF [place] 06/01/2017 ESTRELLITA JACOBSON MD Ot I70.213 ATHSCL [place] ARTERIES OF EXTRM W INTRMT 06/01/2017 ESTRELLITA JACOBSON MD, Ot K21 .9 GASTRO-ESOPHAGEAL REFLUX DISEASE WITHOUT 06/01/2017 ESTRELLITA JACOBSON MD, Ot Z68.33 BODY MASS INDEX (BMI) 33.0-33.9, ADULT 06/01/2017 ESTRELLITA JACOBSON MD, Ot Z79 .4 CONSTRUCTION ECONOMIST (CURRENT) USE OF INSULIN 06/01/2017 ESTRELLITA JACOBSON MD, Ot Z82.49 FAMILY HX OF I[place]HE[place] HEART DIS AND OTH DI 06/02/2017 FELECIA HOLLOWAY Ot N43.3 HYDROCELE, UNSPECIFIED 06/05/2017 HAMMAD PYLE MD Ot E66. 9 OBESITY, UNSPECIFIED 06/05/2017 HAMMAD PYLE MD Ot E78. 2 MIXED HYPERLIPIDEMIA 06/05/2017 HAMMAD PYLE MD Ot I10 ESSENTIAL (PRIMARY) HYPERTENSION 06/05/2017 HAMMAD PYLE MD Ot I25. 10 ATHSCL HEART DISEASE OF [place] CORONARY 06/05/2017 HAMMAD PYLE MD Ot I47. 1 SUPRAVENTRICULAR TACHYCARDIA 06/05/2017 HAMMAD PYLE MD Ot I70. 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 31 BODY MASS INDEX (BMI) 31.0-31.9, ADULT 06/05/2017 HAMMAD PYLE MD Ot Z72. 0 TOBACCO USE 06/05/2017 HAMMAD PYLE MD Ot Z79. 4 CONSTRUCTION ECONOMIST (CURRENT) USE OF INSULIN 06/05/2017 HAMMAD PYLE MD Ot Z79.899 OTHER CONSTRUCTION ECONOMIST (CURRENT) DRUG THERAPY 06/05/2017 HAMMAD PYLE MD Ot Z82. 49 FAMILY HX OF [place] HEART DIS AND OTH DI 06/05/2017 HAMMAD PYLE MD Ot Z95. 5 PRESENCE OF CORONARY ANGIOPLASTY IMPLANT 06/09/2017 HAMMAD PYLE MD Ot E66. 9 OBESITY, UNSPECIFIED 06/09/2017 HAMMAD PYLE MD Ot E78. 2 MIXED HYPERLIPIDEMIA 06/09/2017 HAMMAD PYLE MD Ot I10 ESSENTIAL (PRIMARY) HYPERTENSION 06/09/2017 HAMMAD PYLE MD Ot I25. 10 ATHSCL HEART DISEASE OF [place] CORONARY 06/09/2017 HAMMAD PYLE MD Ot I47. 1 SUPRAVENTRICULAR TACHYCARDIA 06/09/2017 HAMMAD PYLE MD Ot I70. 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 31 BODY MASS INDEX (BMI) 31.0-31.9, ADULT 06/09/2017 HAMMAD PYLE MD Ot Z72. 0 TOBACCO USE 06/09/2017 HAMMAD PYLE MD Ot Z79. 4 CONSTRUCTION ECONOMIST (CURRENT) USE OF INSULIN 06/09/2017 HAMMAD PYLE MD Ot Z79.899 OTHER CONSTRUCTION ECONOMIST (CURRENT) DRUG THERAPY 06/09/2017 HAMMAD PYLE MD Ot Z82. 49 FAMILY HX OF [place] HEART DIS AND OTH DI 06/09/2017 HAMMAD PYLE MD Ot Z95. 5 PRESENCE OF CORONARY ANGIOPLASTY IMPLANT 08/06/2017 FELECIA HOLLOWAY Ot N43.3 HYDROCELE, UNSPECIFIED 08/06/2017 HAMMAD PYLE MD Ot E11. 9 TYPE 2 DIABETES MELLITUS WITHOUT COMPLIC 08/06/2017 HAMMAD PYLE MD Ot E66. 9 OBESITY, UNSPECIFIED 08/06/2017 HAMMAD PYLE MD Ot E78. 5 HYPERLIPIDEMIA, UNSPECIFIED 08/06/2017 HAMMAD PYLE MD Ot I10 ESSENTIAL (PRIMARY) HYPERTENSION 08/06/2017 HAMMAD PYLE MD Ot I25. 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 89 OTHER CHEST PAIN 08/06/2017 HAMAMD PYLE MD Ot Z68. 31 BODY MASS INDEX (BMI) 31.0-31.9, ADULT 08/06/2017 HAMMAD PYLE MD Ot Z70. 0 COUNSELING RELATED TO SEXUAL ATTITUDE 08/06/2017 HAMMAD PYLE MD Ot Z72. 0 TOBACCO USE 08/06/2017 HAMMAD PYLE MD Ot Z82. 49 FAMILY HX OF [place] HEART DIS AND OTH DI 08/06/2017 HAMMAD PYLE MD Ot Z95. 5 PRESENCE OF CORONARY ANGIOPLASTY IMPLANT 08/12/2017 HAMMAD PYLE MD Ot E78. 2 MIXED HYPERLIPIDEMIA 08/12/2017 HAMMAD PYLE MD Ot I10 ESSENTIAL (PRIMARY) HYPERTENSION 08/12/2017 HAMMAD PYLE MD Ot I25. 10 ATHSCL HEART DISEASE OF [place] CORONARY 08/12/2017 HAMMAD PYLE MD Ot I73. 9 PERIPHERAL VASCULAR DISEASE, UNSPECIFIED 08/13/2017 HAMMAD PYLE MD Ot E11. 9 TYPE 2 DIABETES MELLITUS WITHOUT COMPLIC 08/13/2017 HAMMAD PYLE MD Ot E66. 9 OBESITY, UNSPECIFIED 08/13/2017 HAMMAD PYLE MD Ot E78. 5 HYPERLIPIDEMIA, UNSPECIFIED 08/13/2017 HAMMAD PYLE MD Ot I10 ESSENTIAL (PRIMARY) HYPERTENSION 08/13/2017 HAMMAD PYLE MD Ot I25. 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 89 OTHER CHEST PAIN 08/13/2017 HAMMAD PYLE MD Ot Z68. 31 BODY MASS INDEX (BMI) 31.0-31.9, ADULT 08/13/2017 HAMMAD PYLE MD Ot Z70. 0 COUNSELING RELATED TO SEXUAL ATTITUDE 08/13/2017 HAMMAD PYLE MD Ot Z72. 0 TOBACCO USE 08/13/2017 HAMMAD PYLE MD Ot Z82. 49 FAMILY HX OF [place] HEART DIS AND OTH DI 08/13/2017 HAMMAD PYLE MD Ot Z95. 5 PRESENCE OF CORONARY ANGIOPLASTY IMPLANT 10/03/2017 HAMMAD PYLE MD Ot E66. 9 OBESITY, UNSPECIFIED 10/03/2017 HAMMAD PYLE MD Ot E78. 2 MIXED HYPERLIPIDEMIA 10/03/2017 HAMMAD PYLE MD Ot I10 ESSENTIAL (PRIMARY) HYPERTENSION 10/03/2017 HAMMAD PYLE MD Ot I25. 10 ATHSCL HEART DISEASE OF [place] CORONARY 10/03/2017 HAMMAD PYLE MD Ot I47. 1 SUPRAVENTRICULAR TACHYCARDIA 10/03/2017 HAMMAD PYLE MD Ot I70. 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 31 BODY MASS INDEX (BMI) 31.0-31.9, ADULT 10/03/2017 HAMMAD PYLE MD Ot Z72. 0 TOBACCO USE 10/03/2017 HAMMAD PYLE MD Ot Z79. 4 CONSTRUCTION ECONOMIST (CURRENT) USE OF INSULIN 10/03/2017 HAMMAD PYLE MD Ot Z79.899 OTHER ASSISTED (CURRENT) DRUG THERAPY 10/03/2017 HAMMAD PYLE MD Ot Z82. 49 FAMILY HX OF [place] HEART DIS AND OTH DI 10/03/2017 HAMMAD PYLE MD Ot Z95. 5 PRESENCE OF CORONARY ANGIOPLASTY IMPLANT 01/14/2018 FELECIA HOLLOWAY Ot N43.3 HYDROCELE, UNSPECIFIED 01/14/2018 HAMMAD PYLE MD Ot E78. 2 MIXED HYPERLIPIDEMIA 01/14/2018 HAMMAD PYLE MD Ot I10 ESSENTIAL (PRIMARY) HYPERTENSION 01/14/2018 HAMMAD PYLE MD Ot I25. 10 ATHSCL HEART DISEASE OF [place] CORONARY 01/14/2018 HAMMAD PYLE MD Ot I73. 9 PERIPHERAL VASCULAR DISEASE, UNSPECIFIED 01/15/2018 ESTRELLITA JACOBSON MD Ot M48.04 SPINAL STENOSIS, THORACIC REGION 01/15/2018 ESTRELLITA JACOBSON MD Ot M48.07 SPINAL STENOSIS, LUMBOSACRAL REGION 01/15/2018 ESTRELLITA JACOBSON MD Ot M51.34 OTHER INTERVERTEBRAL DISC DEGENERATION, 01/15/2018 ESTRELLITA JACOBSON MD Ot M51.36 OTHER INTERVERTEBRAL DISC DEGENERATION, 01/19/2018 ESTRELLITA JACOBSON MD Ot M48.04 SPINAL STENOSIS, THORACIC REGION 01/19/2018 ESTRELLITA JACOBSON MD Ot M48.07 SPINAL STENOSIS, LUMBOSACRAL REGION 01/19/2018 INDIRA VEE, ESTRELLITA Oleary Ot M51.34 OTHER INTERVERTEBRAL DISC DEGENERATION, 01/19/2018 INDIRA VEE, ESTRELLITA Oleary Ot M51.36 OTHER INTERVERTEBRAL DISC DEGENERATION, 01/19/2018 PAMELA LOPEZ DO Ot K62.5 HEMORRHAGE OF ANUS AND RECTUM 01/19/2018 PAMELA LOPEZ DO B Ot Z01.8 18 ENCOUNTER FOR OTHER PREPROCEDURAL EXAMIN 01/19/2018 PAMELA LOPEZ DO B Ot Z86.0 10 PERSONAL HISTORY OF COLONIC POLYPS 01/20/2018 PAMELA LOPEZ DO B Ot K62.5 HEMORRHAGE OF ANUS AND RECTUM 01/20/2018 PAMELA LOPEZ DO B Ot Z01.8 18 ENCOUNTER FOR OTHER PREPROCEDURAL EXAMIN 01/20/2018 PAMELA LOPEZ DO Ot Z86.0 10 PERSONAL HISTORY OF COLONIC POLYPS 01/21/2018 PAMELA LOPEZ DO Ot D12.2 BENIGN NEOPLASM OF ASCENDING COLON 01/21/2018 PAMELA LOPEZ DO Ot E11.9 TYPE 2 DIABETES MELLITUS WITHOUT COMPLIC 01/21/2018 PAMELA LOPEZ DO B Ot E66.9 OBESITY, UNSPECIFIED 01/21/2018 PAMELA LOPEZ DO B Ot G47.3 3 OBSTRUCTIVE SLEEP APNEA (ADULT) (PEDIATR 01/21/2018 PAMELA LOPEZ DO Ot I25.1 0 ATHSCL HEART DISEASE OF [place] CORONARY 01/21/2018 PAMELA LOPEZ DO B Ot K21.9 GASTRO-ESOPHAGEAL REFLUX DISEASE WITHOUT 01/21/2018 PAMELA LOPEZ DO Ot K40.9 0 UNIL INGUINAL HERNIA, W/O OBST OR GANGR, 01/21/2018 PAMELA LOPEZ DO B Ot K64.8 OTHER HEMORRHOIDS 01/21/2018 PAMELA LOPEZ DO B Ot R79.1 ABNORMAL COAGULATION PROFILE 01/21/2018 PAMELA LOPEZ DO Ot Z68.3 1 BODY MASS INDEX (BMI) 31.0-31.9, ADULT 01/21/2018 PAMELA LOPEZ DO B Ot Z79.0 1 CONSTRUCTION ECONOMIST (CURRENT) USE OF ANTICOAGULANT 01/21/2018 PAMELA LOPEZ DO Ot Z79.8 2 ASSISTED (CURRENT) USE OF ASPIRIN 01/21/2018 DELMAN DO, PAMELA B Ot Z79.8 99 OTHER CONSTRUCTION ECONOMIST (CURRENT) DRUG THERAPY 01/23/2018 MARIA D LOPEZ DOIC B Ot D12.2 BENIGN NEOPLASM OF ASCENDING COLON 01/23/2018 JESSICA BARRETO, PAMELA B Ot E11.9 TYPE 2 DIABETES MELLITUS WITHOUT COMPLIC 01/23/2018 JESSICA BARRETO, PAMELA B Ot E66.9 OBESITY, UNSPECIFIED 01/23/2018 JESSICA BARRETO, PAMELA B Ot G47.3 3 OBSTRUCTIVE SLEEP APNEA (ADULT) (PEDIATR 01/23/2018 JESSICA DO, PAMELA B Ot I25.1 0 ATHSCL HEART DISEASE OF [place] CORONARY 01/23/2018 JESSICA DO, PAMELA B Ot K21.9 GASTRO-ESOPHAGEAL REFLUX DISEASE WITHOUT 01/23/2018 JESSICA DO, PAMELA B Ot K40.9 0 UNIL INGUINAL HERNIA, W/O OBST OR GANGR, 01/23/2018 MARIA D LOPEZ DOIC B Ot K64.8 OTHER HEMORRHOIDS 01/23/2018 JESSICA BARRETO PAMELA B Ot R79.1 ABNORMAL COAGULATION PROFILE 01/23/2018 MARIA D LOPEZ DOIC B Ot Z68.3 1 BODY MASS INDEX (BMI) 31.0-31.9, ADULT 01/23/2018 MARIA D LOPEZ DOIC B Ot Z79.0 1 CONSTRUCTION ECONOMIST (CURRENT) USE OF ANTICOAGULANT 01/23/2018 MARIA D LOPEZ DOIC B Ot Z79.8 2 CONSTRUCTION ECONOMIST (CURRENT) USE OF ASPIRIN 01/23/2018 MARIA D LOPEZ DOIC B Ot Z79.8 99 OTHER ASSISTED (CURRENT) DRUG THERAPY 01/23/2018 MARIA D LOPEZ DOIC B Ot D12.2 BENIGN NEOPLASM OF ASCENDING COLON 01/23/2018 JESSICA BARRETO, PAMELA B Ot E11.9 TYPE 2 DIABETES MELLITUS WITHOUT COMPLIC 01/23/2018 JESSICA BARRETO, PAMELA B Ot E66.9 OBESITY, UNSPECIFIED 01/23/2018 JESSICA BARRETO, PAMELA B Ot G47.3 3 OBSTRUCTIVE SLEEP APNEA (ADULT) (PEDIATR 01/23/2018 JESSICA DO, PAMELA B Ot I25.1 0 ATHSCL HEART DISEASE OF [place] CORONARY 01/23/2018 JESSICA DO, PAMELA B Ot K21.9 GASTRO-ESOPHAGEAL REFLUX DISEASE WITHOUT 01/23/2018 SARAHMAN DO, PAMELA B Ot K40.9 0 UNIL INGUINAL HERNIA, W/O OBST OR GANGR, 01/23/2018 PAMELA LOPEZ DO Ot K64.8 OTHER HEMORRHOIDS 01/23/2018 PAMELA LOPEZ DO Ot R79.1 ABNORMAL COAGULATION PROFILE 01/23/2018 PAMELA LOPEZ DO Ot Z68.3 1 BODY MASS INDEX (BMI) 31.0-31.9, ADULT 01/23/2018 PAMELA LOPEZ DO Ot Z79.0 1 ASSISTED (CURRENT) USE OF ANTICOAGULANT 01/23/2018 PAMELA LOPEZ DO Ot Z79.8 2 CONSTRUCTION ECONOMIST (CURRENT) USE OF ASPIRIN 01/23/2018 PAMELA LOPEZ DO Ot Z79.8 99 OTHER CONSTRUCTION ECONOMIST (CURRENT) DRUG THERAPY 01/25/2018 PAMELA LOPEZ DO Ot K62.5 HEMORRHAGE OF ANUS AND RECTUM 01/25/2018 PAMELA LOPEZ DO Ot Z01.8 18 ENCOUNTER FOR OTHER PREPROCEDURAL EXAMIN 01/25/2018 PAMELA LOPEZ DO Ot Z86.0 10 PERSONAL HISTORY OF COLONIC POLYPS 01/29/2018 PAMELA LOPEZ DO Ot D12.2 BENIGN NEOPLASM OF ASCENDING COLON 01/29/2018 PAMELA LOPEZ DO Ot E11.9 TYPE 2 DIABETES MELLITUS WITHOUT COMPLIC 01/29/2018 PAMELA LOPEZ DO Ot E66.9 OBESITY, UNSPECIFIED 01/29/2018 PAMELA LOPEZ DO B Ot G47.3 3 OBSTRUCTIVE SLEEP APNEA (ADULT) (PEDIATR 01/29/2018 PAMELA LOPEZ DO Ot I25.1 0 ATHSCL HEART DISEASE OF [place] CORONARY 01/29/2018 PAMELA LOPEZ DO Ot K21.9 GASTRO-ESOPHAGEAL REFLUX DISEASE WITHOUT 01/29/2018 PAMELA OLPEZ DO B Ot K40.9 0 UNIL INGUINAL HERNIA, W/O OBST OR GANGR, 01/29/2018 PAMELA LOPEZ DO Ot K64.8 OTHER HEMORRHOIDS 01/29/2018 PAMELA LOPEZ DO Ot R79.1 ABNORMAL COAGULATION PROFILE 01/29/2018 PAMELA LOPEZ DO Ot Z68.3 1 BODY MASS INDEX (BMI) 31.0-31.9, ADULT 01/29/2018 PAMELA LOPEZ DO Ot Z79.0 1 ASSISTED (CURRENT) USE OF ANTICOAGULANT 01/29/2018 PAMELA LOPEZ DO Ot Z79.8 2 CONSTRUCTION ECONOMIST (CURRENT) USE OF ASPIRIN 01/29/2018 PAMELA LOPEZ DO Ot Z79.8 99 OTHER ASSISTED (CURRENT) DRUG THERAPY 03/14/2018 NEGRO FALLON MD, Ot E11.42 TYPE 2 DIABETES MELLITUS WITH DIABETIC P 03/14/2018 NEGRO FALLON MD, Ot E78 .5 HYPERLIPIDEMIA, UNSPECIFIED 03/14/2018 NEGRO FALLON MD Ot F17.210 NICOTINE DEPENDENCE, CIGARETTES, UNCOMPL 03/14/2018 NEGRO FALLON MD, Ot F32 .9 MAJOR DEPRESSIVE DISORDER, SINGLE EPISOD 03/14/2018 NEGRO FALLON MD, Ot I10 ESSENTIAL (PRIMARY) HYPERTENSION 03/14/2018 NEGRO FALLON MD, Ot I25.119 ATHSCL HEART DISEASE OF [place] COR ART W 03/14/2018 NEGRO FALLON MD, Ot I47 .1 SUPRAVENTRICULAR TACHYCARDIA 03/14/2018 NEGRO FALLON MD Ot I73 .9 PERIPHERAL VASCULAR DISEASE, UNSPECIFIED 03/14/2018 NEGRO FALLON MD, Ot I95 .9 HYPOTENSION, UNSPECIFIED 03/14/2018 NEGRO FALLON MD, Ot K21 .9 GASTRO-ESOPHAGEAL REFLUX DISEASE WITHOUT 03/14/2018 NEGRO FALLON MD, Ot Z68.29 BODY MASS INDEX (BMI) 29.0-29.9, ADULT 03/14/2018 NEGRO FALLON MD, Ot Z79 .4 ASSISTED (CURRENT) USE OF INSULIN 03/14/2018 NEGRO FALLON MD, Ot Z82.49 FAMILY HX OF [place]HE[place] HEART DIS AND OTH DI 03/14/2018 NEGRO FALLON MD, Ot Z95 .5 PRESENCE OF CORONARY ANGIOPLASTY IMPLANT 03/14/2018 NEGRO FALLON MD, Ot E11.42 TYPE 2 DIABETES MELLITUS WITH DIABETIC P 03/14/2018 NEGRO FALLON MD, Ot E78 .5 HYPERLIPIDEMIA, UNSPECIFIED 03/14/2018 NEGRO FALLON MD Ot F17.210 NICOTINE DEPENDENCE, CIGARETTES, UNCOMPL 03/14/2018 NEGRO FALLON MD Ot F32 .9 MAJOR DEPRESSIVE DISORDER, SINGLE EPISOD 03/14/2018 NEGRO FALLON MD Ot I10 ESSENTIAL (PRIMARY) HYPERTENSION 03/14/2018 NEGRO FALLON MD Ot I25.119 ATHSCL HEART DISEASE OF [place] COR ART W 03/14/2018 NEGRO FALLON MD Ot I47 .1 SUPRAVENTRICULAR TACHYCARDIA 03/14/2018 NEGRO FALLON MD Ot I73 .9 PERIPHERAL VASCULAR DISEASE, UNSPECIFIED 03/14/2018 NEGRO FALLON MD Ot I95 .9 HYPOTENSION, UNSPECIFIED 03/14/2018 NEGRO FALLON MD Ot K21 .9 GASTRO-ESOPHAGEAL REFLUX DISEASE WITHOUT 03/14/2018 NEGRO FALLON MD Ot Z68.29 BODY MASS INDEX (BMI) 29.0-29.9, ADULT 03/14/2018 NEGRO FALLON MD, Ot Z79 .4 ASSISTED (CURRENT) USE OF INSULIN 03/14/2018 NEGRO FALLON MD Ot Z82.49 FAMILY HX OF [place]HE[place] HEART DIS AND OTH DI 03/14/2018 NEGRO FALLON MD Ot Z95 .5 PRESENCE OF CORONARY ANGIOPLASTY IMPLANT 03/19/2018 NEGRO FALLON MD Ot E11.42 TYPE 2 DIABETES MELLITUS WITH DIABETIC P 03/19/2018 NEGRO FALLON MD Ot E78 .5 HYPERLIPIDEMIA, UNSPECIFIED 03/19/2018 NEGRO FALLON MD Ot F17.210 NICOTINE DEPENDENCE, CIGARETTES, UNCOMPL 03/19/2018 NEGRO FALLON MD Ot F32 .9 MAJOR DEPRESSIVE DISORDER, SINGLE EPISOD 03/19/2018 NEGRO FALLON MD Ot I10 ESSENTIAL (PRIMARY) HYPERTENSION 03/19/2018 NEGRO FALLON MD Ot I25.119 ATHSCL HEART DISEASE OF [place] COR ART W 03/19/2018 NEGRO FALLON MD Ot I47 .1 SUPRAVENTRICULAR TACHYCARDIA 03/19/2018 NEGRO FALLON MD Ot I73 .9 PERIPHERAL VASCULAR DISEASE, UNSPECIFIED 03/19/2018 NEGRO FALLON MD Ot I95 .9 HYPOTENSION, UNSPECIFIED 03/19/2018 NEGRO FALLON MD Ot K21 .9 GASTRO-ESOPHAGEAL REFLUX DISEASE WITHOUT 03/19/2018 NEGRO FALLON MD Ot Z68.29 BODY MASS INDEX (BMI) 29.0-29.9, ADULT 03/19/2018 NEGRO FALLON MD Ot Z79 .4 CONSTRUCTION ECONOMIST (CURRENT) USE OF INSULIN 03/19/2018 NEGRO FALLON MD Ot Z82.49 FAMILY HX OF [place]HE[place] HEART DIS AND OTH DI 03/19/2018 NEGRO FALLON MD Ot Z95 .5 PRESENCE OF CORONARY ANGIOPLASTY IMPLANT 03/31/2018 ESTRELLITA JACOBSON MD Ot M48.04 SPINAL STENOSIS, THORACIC REGION 03/31/2018 ESTRELLITA JACOBSON MD Ot M48.07 SPINAL STENOSIS, LUMBOSACRAL REGION 03/31/2018 ESTRELLITA JACOBSON MD Ot M51.34 OTHER INTERVERTEBRAL DISC DEGENERATION, 03/31/2018 ESTRELLITA JACOBSON MD, Ot M51.36 OTHER INTERVERTEBRAL DISC DEGENERATION, 04/16/2018 ESTRELLITA JACOBSON MD, Ot M48.04 SPINAL STENOSIS, THORACIC REGION 04/16/2018 ESTRELLITA JACOBSON MD Ot M48.07 SPINAL STENOSIS, LUMBOSACRAL REGION 04/16/2018 ESTRELLITA JACOBSON MD Ot M51.34 OTHER INTERVERTEBRAL DISC DEGENERATION, 04/16/2018 ESTRELLITA JACOBSON MD Ot M51.36 OTHER INTERVERTEBRAL DISC DEGENERATION, 04/17/2018 PAMELA LOPEZ DO Ot D12.2 BENIGN NEOPLASM OF ASCENDING COLON 04/17/2018 PAMELA LOPEZ DO Ot E11.9 TYPE 2 DIABETES MELLITUS WITHOUT COMPLIC 04/17/2018 PAMELA LOPEZ DO Ot E66.9 OBESITY, UNSPECIFIED 04/17/2018 PAMELA LOPEZ DO Ot G47.3 3 OBSTRUCTIVE SLEEP APNEA (ADULT) (PEDIATR 04/17/2018 PAMELA LOPEZ DO Ot I25.1 0 ATHSCL HEART DISEASE OF [place] CORONARY 04/17/2018 PAMELA LOPEZ DO Ot K21.9 GASTRO-ESOPHAGEAL REFLUX DISEASE WITHOUT 04/17/2018 PAMELA LOPEZ DO Ot K40.9 0 UNIL INGUINAL HERNIA, W/O OBST OR GANGR, 04/17/2018 PAMELA LOPEZ DO Ot K64.8 OTHER HEMORRHOIDS 04/17/2018 PAMELA LOPEZ DO Ot R79.1 ABNORMAL COAGULATION PROFILE 04/17/2018 PAMELA LOPEZ DO Ot Z68.3 1 BODY MASS INDEX (BMI) 31.0-31.9, ADULT 04/17/2018 MARIA D LOPEZ DOIC Jay Ot Z79.0 1 CONSTRUCTION ECONOMIST (CURRENT) USE OF ANTICOAGULANT 04/17/2018 JESSICA BARRETO PAMELA B Ot Z79.8 2 ASSISTED (CURRENT) USE OF ASPIRIN 04/17/2018 JESSICA BARRETO PAMELA Thompson Ot Z79.8 99 OTHER ASSISTED (CURRENT) DRUG THERAPY 02/26/2019 ESTRELLITA JACOBSON MD, Ot M48.04 SPINAL STENOSIS, THORACIC REGION 02/26/2019 ESTRELLITA JACOBSON MD, Ot M48.07 SPINAL STENOSIS, LUMBOSACRAL REGION 02/26/2019 ESTRELLITA JACOBSON MD Ot M51.34 OTHER INTERVERTEBRAL DISC DEGENERATION, 02/26/2019 ESTRELLITA JACOBSON MD, Ot M51.36 OTHER INTERVERTEBRAL DISC DEGENERATION, 03/02/2019 HAMMAD PYLE MD Ot E11. 9 TYPE 2 DIABETES MELLITUS WITHOUT COMPLIC 03/02/2019 HAMMAD PYLE MD Ot I10 ESSENTIAL (PRIMARY) HYPERTENSION 03/02/2019 HAMMAD PYLE MD Ot I25. 10 ATHSCL HEART DISEASE OF [place] CORONARY 03/02/2019 HAMMAD PYLE MD Ot I73. 9 PERIPHERAL VASCULAR DISEASE, UNSPECIFIED 03/02/2019 HAMMAD PYLE MD Ot J44. 9 CHRONIC OBSTRUCTIVE PULMONARY DISEASE, U 03/03/2019 FELECIA HOLLOWAY Ot N43.3 HYDROCELE, UNSPECIFIED 03/03/2019 HAMMAD PYLE MD Ot E78. 2 MIXED HYPERLIPIDEMIA 03/03/2019 HAMMAD PYLE MD Ot I10 ESSENTIAL (PRIMARY) HYPERTENSION 03/03/2019 HAMMAD PYLE MD Ot I25. 10 ATHSCL HEART DISEASE OF [place] CORONARY 03/03/2019 HAMMAD PYLE MD Ot I73. 9 PERIPHERAL VASCULAR DISEASE, UNSPECIFIED 03/03/2019 ESTRELLITA JACOBSON MD Ot M48.04 SPINAL STENOSIS, THORACIC REGION 03/03/2019 ESTRELLITA JACOBSON MD Ot M48.07 SPINAL STENOSIS, LUMBOSACRAL REGION 03/03/2019 ESTRELLITA JACOBSON MD Ot M51.34 OTHER INTERVERTEBRAL DISC DEGENERATION, 03/03/2019 ESTRELLITA JACOBSON MD Ot M51.36 OTHER INTERVERTEBRAL DISC DEGENERATION, 03/03/2019 HAMMAD PYLE MD Ot E11. 40 TYPE 2 DIABETES MELLITUS WITH DIABETIC N 03/03/2019 HAMMAD PYLE MD Ot E66. 9 OBESITY, UNSPECIFIED 03/03/2019 HAMMAD PYLE MD Ot E78. 00 PURE HYPERCHOLESTEROLEMIA, UNSPECIFIED 03/03/2019 HAMMAD PYLE MD Ot E78. 5 HYPERLIPIDEMIA, UNSPECIFIED 03/03/2019 HAMMAD PYLE MD Ot F17.210 NICOTINE DEPENDENCE, CIGARETTES, UNCOMPL 03/03/2019 HAMMAD PYLE MD Ot F32. 9 MAJOR DEPRESSIVE DISORDER, SINGLE EPISOD 03/03/2019 HAMMAD PYLE MD Ot I10 ESSENTIAL (PRIMARY) HYPERTENSION 03/03/2019 HAMMAD PYLE MD Ot I25.119 ATHSCL HEART DISEASE OF [place] COR ART W 03/03/2019 HAMMAD PYLE MD Ot I25. 2 OLD MYOCARDIAL INFARCTION 03/03/2019 HAMMAD PYLE MD Ot I47. 1 SUPRAVENTRICULAR TACHYCARDIA 03/03/2019 HAMMAD PYLE MD, Ot J44. 9 CHRONIC OBSTRUCTIVE PULMONARY DISEASE, U 03/03/2019 HAMMAD PYLE MD Ot K21. 9 GASTRO-ESOPHAGEAL REFLUX DISEASE WITHOUT 03/03/2019 HAMMAD PYLE MD, Ot K52. 9 NONINFECTIVE GASTROENTERITIS AND COLITIS 03/03/2019 HAMMAD PYLE MD Ot R00. 2 PALPITATIONS 03/03/2019 HAMMAD PYLE MD Ot Z68. 29 BODY MASS INDEX (BMI) 29.0-29.9, ADULT 03/03/2019 HAMMAD PYLE MD Ot Z79. 4 CONSTRUCTION ECONOMIST (CURRENT) USE OF INSULIN 03/03/2019 HAMMAD PYLE MD Ot Z79. 82 CONSTRUCTION ECONOMIST (CURRENT) USE OF ASPIRIN 03/03/2019 HAMMAD PYLE MD, Ot Z79.899 OTHER CONSTRUCTION ECONOMIST (CURRENT) DRUG THERAPY 03/03/2019 HAMMAD PYLE MD, Ot Z82. 49 FAMILY HX OF [place] HEART DIS AND OTH DI 03/03/2019 HAMMAD PYLE MD Ot Z88. 0 ALLERGY STATUS TO PENICILLIN 03/03/2019 HAMMAD PYLE MD Ot Z95. 5 PRESENCE OF CORONARY ANGIOPLASTY IMPLANT 03/10/2019 HAMMAD PYLE MD Ot E11. 40 TYPE 2 DIABETES MELLITUS WITH DIABETIC N 03/10/2019 HAMMAD PYLE MD Ot E66. 9 OBESITY, UNSPECIFIED 03/10/2019 HAMMAD PYLE MD, Ot E78. 00 PURE HYPERCHOLESTEROLEMIA, UNSPECIFIED 03/10/2019 HAMMAD PYLE MD, Ot E78. 5 HYPERLIPIDEMIA, UNSPECIFIED 03/10/2019 HAMMAD PYLE MD Ot F17.210 NICOTINE DEPENDENCE, CIGARETTES, UNCOMPL 03/10/2019 HAMMAD PYLE MD Ot F32. 9 MAJOR DEPRESSIVE DISORDER, SINGLE EPISOD 03/10/2019 HAMMAD PYLE MD Ot I10 ESSENTIAL (PRIMARY) HYPERTENSION 03/10/2019 HAMMAD PYLE MD, Ot I25.119 ATHSCL HEART DISEASE OF [place] COR ART W 03/10/2019 HAMMAD PYLE MD Ot I25. 2 OLD MYOCARDIAL INFARCTION 03/10/2019 HAMMAD PYLE MD Ot I47. 1 SUPRAVENTRICULAR TACHYCARDIA 03/10/2019 HAMMAD PYLE MD, Ot J44. 9 CHRONIC OBSTRUCTIVE PULMONARY DISEASE, U 03/10/2019 HAMMAD PYLE MD, Ot K21. 9 GASTRO-ESOPHAGEAL REFLUX DISEASE WITHOUT 03/10/2019 HAMMAD PYLE MD, Ot K52. 9 NONINFECTIVE GASTROENTERITIS AND COLITIS 03/10/2019 HAMMAD PYLE MD, Ot R00. 2 PALPITATIONS 03/10/2019 HAMMAD PYLE MD, Ot Z68. 29 BODY MASS INDEX (BMI) 29.0-29.9, ADULT 03/10/2019 HAMMAD PYLE MD, Ot Z79. 4 CONSTRUCTION ECONOMIST (CURRENT) USE OF INSULIN 03/10/2019 HAMMAD PYLE MD Ot Z79. 82 CONSTRUCTION ECONOMIST (CURRENT) USE OF ASPIRIN 03/10/2019 HAMMAD PYLE MD, Ot Z79.899 OTHER CONSTRUCTION ECONOMIST (CURRENT) DRUG THERAPY 03/10/2019 HAMMAD PYLE MD, Ot Z82. 49 FAMILY HX OF [place] HEART DIS AND OTH DI 03/10/2019 HAMMAD PYLE MD, Ot Z88. 0 ALLERGY STATUS TO PENICILLIN 03/10/2019 HAMMAD PYLE MD, Ot Z95. 5 PRESENCE OF CORONARY ANGIOPLASTY IMPLANT 04/16/2019 HOLLOWAY, FELECIA R CFNP Ot N43.3 HYDROCELE, UNSPECIFIED 04/16/2019 HAMMAD PYLE MD Ot E78. 2 MIXED HYPERLIPIDEMIA 04/16/2019 HAMMAD PYLE MD Ot I10 ESSENTIAL (PRIMARY) HYPERTENSION 04/16/2019 HAMMAD PYLE MD Ot I25. 10 ATHSCL HEART DISEASE OF [place] CORONARY 04/16/2019 HAMMAD PYLE MD Ot I73. 9 PERIPHERAL VASCULAR DISEASE, UNSPECIFIED 04/16/2019 ESTRELLITA JACOBSON MD Ot M48.04 SPINAL STENOSIS, THORACIC REGION 04/16/2019 ESTRELLITA JACOBSON MD Ot M48.07 SPINAL STENOSIS, LUMBOSACRAL REGION 04/16/2019 ESTRELLITA JACOBSON MD Ot M51.34 OTHER INTERVERTEBRAL DISC DEGENERATION, 04/16/2019 ESTRELLITA JACOBSON MD Ot M51.36 OTHER INTERVERTEBRAL DISC DEGENERATION, 04/16/2019 HAMMAD PYLE MD Ot E11. 9 TYPE 2 DIABETES MELLITUS WITHOUT COMPLIC 04/16/2019 HAMMAD PYLE MD Ot I10 ESSENTIAL (PRIMARY) HYPERTENSION 04/16/2019 HAMMAD PYLE MD Ot I25. 10 ATHSCL HEART DISEASE OF [place] CORONARY 04/16/2019 HAMMAD PYLE MD Ot I73. 9 PERIPHERAL VASCULAR DISEASE, UNSPECIFIED 04/16/2019 HAMMAD PYLE MD Ot J44. 9 CHRONIC OBSTRUCTIVE PULMONARY DISEASE, U 04/16/2019 HAMMAD PYLE MD Ot E11. 9 TYPE 2 DIABETES MELLITUS WITHOUT COMPLIC 04/16/2019 HAMMAD PYLE MD Ot I10 ESSENTIAL (PRIMARY) HYPERTENSION 04/16/2019 HAMMAD PYLE MD Ot I25. 10 ATHSCL HEART DISEASE OF [place] CORONARY 04/16/2019 HAMMAD PYLE MD Ot I73. 9 PERIPHERAL VASCULAR DISEASE, UNSPECIFIED 04/16/2019 HAMMAD PYLE MD Ot J44. 9 CHRONIC OBSTRUCTIVE PULMONARY DISEASE, U 04/17/2019 HAMMAD PYLE MD Ot E11. 40 TYPE 2 DIABETES MELLITUS WITH DIABETIC N 04/17/2019 HMAMAD PYLE MD Ot E66. 9 OBESITY, UNSPECIFIED 04/17/2019 HAMMAD PYLE MD Ot E78. 00 PURE HYPERCHOLESTEROLEMIA, UNSPECIFIED 04/17/2019 HAMMAD PYLE MD Ot E78. 5 HYPERLIPIDEMIA, UNSPECIFIED 04/17/2019 HAMMAD PYLE MD Ot F17.210 NICOTINE DEPENDENCE, CIGARETTES, UNCOMPL 04/17/2019 HAMMAD PYLE MD Ot F32. 9 MAJOR DEPRESSIVE DISORDER, SINGLE EPISOD 04/17/2019 HAMMAD PYLE MD Ot I10 ESSENTIAL (PRIMARY) HYPERTENSION 04/17/2019 HAMMAD PYLE MD Ot I25.119 ATHSCL HEART DISEASE OF [place] COR ART W 04/17/2019 HAMMAD PYLE MD Ot I25. 2 OLD MYOCARDIAL INFARCTION 04/17/2019 HAMMAD PYLE MD Ot I47. 1 SUPRAVENTRICULAR TACHYCARDIA 04/17/2019 HAMMAD PYLE MD, Ot J44. 9 CHRONIC OBSTRUCTIVE PULMONARY DISEASE, U 04/17/2019 HAMMAD PYLE MD, Ot K21. 9 GASTRO-ESOPHAGEAL REFLUX DISEASE WITHOUT 04/17/2019 HAMMAD PYLE MD, Ot K52. 9 NONINFECTIVE GASTROENTERITIS AND COLITIS 04/17/2019 HAMMAD PYLE MD Ot R00. 2 PALPITATIONS 04/17/2019 HAMMAD PYLE MD Ot Z68. 29 BODY MASS INDEX (BMI) 29.0-29.9, ADULT 04/17/2019 HAMMAD PYLE MD Ot Z79. 4 ASSISTED (CURRENT) USE OF INSULIN 04/17/2019 HAMMAD PYLE MD Ot Z79. 82 CONSTRUCTION ECONOMIST (CURRENT) USE OF ASPIRIN 04/17/2019 HAMMAD PYLE MD, Ot Z79.899 OTHER CONSTRUCTION ECONOMIST (CURRENT) DRUG THERAPY 04/17/2019 HAMMAD PYLE MD Ot Z82. 49 FAMILY HX OF [place] HEART DIS AND OTH DI 04/17/2019 HAMMAD PYLE MD Ot Z88. 0 ALLERGY STATUS TO PENICILLIN 04/17/2019 HAMMAD PYLE MD Ot Z95. 5 PRESENCE OF CORONARY ANGIOPLASTY IMPLANT 04/20/2019 HAMMAD PYLE MD Ot E11. 40 TYPE 2 DIABETES MELLITUS WITH DIABETIC N 04/20/2019 HAMMAD PYLE MD Ot E66. 9 OBESITY, UNSPECIFIED 04/20/2019 HAMMAD PYLE MD Ot E78. 00 PURE HYPERCHOLESTEROLEMIA, UNSPECIFIED 04/20/2019 HAMMAD PYLE MD Ot E78. 5 HYPERLIPIDEMIA, UNSPECIFIED 04/20/2019 HAMMAD PYLE MD Ot F17.210 NICOTINE DEPENDENCE, CIGARETTES, UNCOMPL 04/20/2019 HAMMAD PYLE MD Ot F32. 9 MAJOR DEPRESSIVE DISORDER, SINGLE EPISOD 04/20/2019 HAMMAD PYLE MD Ot I10 ESSENTIAL (PRIMARY) HYPERTENSION 04/20/2019 HAMMAD PYLE MD Ot I25.119 ATHSCL HEART DISEASE OF [place] COR ART W 04/20/2019 HAMMAD PYLE MD, Ot I25. 2 OLD MYOCARDIAL INFARCTION 04/20/2019 HAMMAD PYLE MD Ot I47. 1 SUPRAVENTRICULAR TACHYCARDIA 04/20/2019 HAMMAD PYLE MD, Ot J44. 9 CHRONIC OBSTRUCTIVE PULMONARY DISEASE, U 04/20/2019 HAMMAD PYLE MD, Ot K21. 9 GASTRO-ESOPHAGEAL REFLUX DISEASE WITHOUT 04/20/2019 HAMMAD PYLE MD, Ot K52. 9 NONINFECTIVE GASTROENTERITIS AND COLITIS 04/20/2019 HAMMAD PYLE MD Ot R00. 2 PALPITATIONS 04/20/2019 HAMMAD PYLE MD, Ot Z68. 29 BODY MASS INDEX (BMI) 29.0-29.9, ADULT 04/20/2019 HAMMAD PYLE MD Ot Z79. 4 CONSTRUCTION ECONOMIST (CURRENT) USE OF INSULIN 04/20/2019 HAMMAD PYLE MD Ot Z79. 82 ASSISTED (CURRENT) USE OF ASPIRIN 04/20/2019 HAMMAD PYLE MD, Ot Z79.899 OTHER CONSTRUCTION ECONOMIST (CURRENT) DRUG THERAPY 04/20/2019 HAMMAD PYLE MD, Ot Z82. 49 FAMILY HX OF [place] HEART DIS AND OTH DI 04/20/2019 HAMMAD PYLE MD Ot Z88. 0 ALLERGY STATUS TO PENICILLIN 04/20/2019 HAMMAD PYLE MD Ot Z95. 5 PRESENCE OF CORONARY ANGIOPLASTY IMPLANT 04/21/2019 HAMMAD PYLE MD Ot E11. 40 TYPE 2 DIABETES MELLITUS WITH DIABETIC N 04/21/2019 HAMMAD PYLE MD Ot E66. 9 OBESITY, UNSPECIFIED 04/21/2019 HAMMAD PYLE MD Ot E78. 00 PURE HYPERCHOLESTEROLEMIA, UNSPECIFIED 04/21/2019 HAMMAD PYLE MD Ot E78. 5 HYPERLIPIDEMIA, UNSPECIFIED 04/21/2019 HAMMAD PYLE MD Ot F17.210 NICOTINE DEPENDENCE, CIGARETTES, UNCOMPL 04/21/2019 HAMMAD PYLE MD Ot F32. 9 MAJOR DEPRESSIVE DISORDER, SINGLE EPISOD 04/21/2019 HAMMAD PYLE MD Ot I10 ESSENTIAL (PRIMARY) HYPERTENSION 04/21/2019 HAMMAD YPLE MD Ot I25.119 ATHSCL HEART DISEASE OF [place] COR ART W 04/21/2019 HAMMAD PYLE MD Ot I25. 2 OLD MYOCARDIAL INFARCTION 04/21/2019 HAMMAD PYLE MD, Ot I47. 1 SUPRAVENTRICULAR TACHYCARDIA 04/21/2019 HAMMAD PYLE MD, Ot J44. 9 CHRONIC OBSTRUCTIVE PULMONARY DISEASE, U 04/21/2019 HAMMAD PYLE MD, Ot K21. 9 GASTRO-ESOPHAGEAL REFLUX DISEASE WITHOUT 04/21/2019 HAMMAD PYLE MD, Ot K52. 9 NONINFECTIVE GASTROENTERITIS AND COLITIS 04/21/2019 HAMMAD PYLE MD, Ot R00. 2 PALPITATIONS 04/21/2019 HAMMAD PYLE MD, Ot Z68. 29 BODY MASS INDEX (BMI) 29.0-29.9, ADULT 04/21/2019 HAMMAD PYLE MD, Ot Z79. 4 ASSISTED (CURRENT) USE OF INSULIN 04/21/2019 HAMMAD PYLE MD, Ot Z79. 82 CONSTRUCTION ECONOMIST (CURRENT) USE OF ASPIRIN 04/21/2019 HAMMAD PYLE MD, Ot Z79.899 OTHER ASSISTED (CURRENT) DRUG THERAPY 04/21/2019 HAMMAD PYLE MD, Ot Z82. 49 FAMILY HX OF [place] HEART DIS AND OTH DI 04/21/2019 HAMMAD PYLE MD, Ot Z88. 0 ALLERGY STATUS TO PENICILLIN 04/21/2019 HAMMAD PYLE MD Ot Z95. 5 PRESENCE OF CORONARY ANGIOPLASTY IMPLANT 10/14/2019 FELECIA HOLLOWAY Ot N43.3 HYDROCELE, UNSPECIFIED 10/14/2019 HAMMAD PYLE MD Ot E78. 2 MIXED HYPERLIPIDEMIA 10/14/2019 HAMMAD PYLE MD, Ot I10 ESSENTIAL (PRIMARY) HYPERTENSION 10/14/2019 HAMMAD PYLE MD Ot I25. 10 ATHSCL HEART DISEASE OF [place] CORONARY 10/14/2019 HAMMAD PYLE MD Ot I73. 9 PERIPHERAL VASCULAR DISEASE, UNSPECIFIED 10/14/2019 ESTRELLITA JACOBSON MD Ot M48.04 SPINAL STENOSIS, THORACIC REGION 10/14/2019 ESTRELLITA JACOBSON MD Ot M48.07 SPINAL STENOSIS, LUMBOSACRAL REGION 10/14/2019 ESTRELLITA JACOBSON MD Ot M51.34 OTHER INTERVERTEBRAL DISC DEGENERATION, 10/14/2019 ESTRELLITA JACOBSON MD Ot M51.36 OTHER INTERVERTEBRAL DISC DEGENERATION, 10/14/2019 HAMMAD PYLE MD Ot E11. 9 TYPE 2 DIABETES MELLITUS WITHOUT COMPLIC 10/14/2019 HAMMAD PYLE MD Ot I10 ESSENTIAL (PRIMARY) HYPERTENSION 10/14/2019 HAMMAD PYLE MD Ot I25. 10 ATHSCL HEART DISEASE OF [place] CORONARY 10/14/2019 HAMMAD PYLE MD Ot I73. 9 PERIPHERAL VASCULAR DISEASE, UNSPECIFIED 10/14/2019 HAMMAD PYLE MD, Ot J44. 9 CHRONIC OBSTRUCTIVE PULMONARY DISEASE, U 10/14/2019 CHETAN MORALES MD Ot B34.9 VIRAL INFECTION, UNSPECIFIED 10/14/2019 CHETAN MORALES MD Ot E11.40 TYPE 2 DIABETES MELLITUS WITH DIABETIC N 10/14/2019 CHETAN MORALES MD Ot E78.00 PURE HYPERCHOLESTEROLEMIA, UNSPECIFIED 10/14/2019 CHETAN MORALES MD, Ot E86.1 HYPOVOLEMIA 10/14/2019 CHETAN MORALES MD Ot F17.210 NICOTINE DEPENDENCE, CIGARETTES, UNCOMPL 10/14/2019 CHETAN MORALES MD Ot F32.9 MAJOR DEPRESSIVE DISORDER, SINGLE EPISOD 10/14/2019 CHETAN MORALES MD Ot I10 ESSENTIAL (PRIMARY) HYPERTENSION 10/14/2019 CHETAN MORALES MD, Ot I25.10 ATHSCL HEART DISEASE OF [place] CORONARY 10/14/2019 CHETAN MORALES MD, Ot J44.9 CHRONIC OBSTRUCTIVE PULMONARY DISEASE, U 10/14/2019 CHETAN MORALES MD, Ot K21.9 GASTRO-ESOPHAGEAL REFLUX DISEASE WITHOUT 10/14/2019 CHETAN MORALES MD Ot R11.2 NAUSEA WITH VOMITING, UNSPECIFIED 10/14/2019 CHETAN MORALES MD, Ot Z79.02 CONSTRUCTION ECONOMIST (CURRENT) USE OF ANTITHROMBOTI 10/14/2019 CHETAN MORALES MD, Ot Z79.82 CONSTRUCTION ECONOMIST (CURRENT) USE OF ASPIRIN 10/14/2019 CHETAN MORALES MD, Ot Z79.84 ASSISTED (CURRENT) USE OF ORAL HYPOGLYC 10/14/2019 CHETAN MORALES MD, Ot Z80.0 FAMILY HISTORY OF MALIGNANT NEOPLASM OF 10/14/2019 CHETAN MORALES MD, Ot Z82.49 FAMILY HX OF [place] HEART DIS AND OTH DI 10/14/2019 CHETAN MROALES MD, Ot Z88.0 ALLERGY STATUS TO PENICILLIN 10/14/2019 CHETAN MORALES MD, Ot Z90.49 ACQUIRED ABSENCE OF OTHER SPECIFIED PART 10/14/2019 CHETAN MORALES MD, Ot Z95.5 PRESENCE OF CORONARY ANGIOPLASTY IMPLANT 10/16/2019 CHETAN MORALES MD Ot E11.40 TYPE 2 DIABETES MELLITUS WITH DIABETIC N 10/16/2019 CHETAN MORALES MD, Ot E78.00 PURE HYPERCHOLESTEROLEMIA, UNSPECIFIED 10/16/2019 CHETAN MORALES MD, Ot F32.9 MAJOR DEPRESSIVE DISORDER, SINGLE EPISOD 10/16/2019 CHETAN MORALES MD, Ot I10 ESSENTIAL (PRIMARY) HYPERTENSION 10/16/2019 CHETAN MORALES MD, Ot I25.10 ATHSCL HEART DISEASE OF [place] CORONARY 10/16/2019 CHETAN MORALES MD, Ot I47.1 SUPRAVENTRICULAR TACHYCARDIA 10/16/2019 CHETAN MORALES MD, Ot I48.91 UNSPECIFIED ATRIAL FIBRILLATION 10/16/2019 CHETAN MORALES MD, Ot J44.9 CHRONIC OBSTRUCTIVE PULMONARY DISEASE, U 10/16/2019 CHETAN MORALES MD, Ot K21.9 GASTRO-ESOPHAGEAL REFLUX DISEASE WITHOUT 10/16/2019 CHETAN MORALES MD, Ot R07.89 OTHER CHEST PAIN 10/16/2019 CHETAN MORALES MD, Ot Z77.22 CNTCT W AND EXPSR TO ENVIRON TOBACCO SMO 10/16/2019 CHETAN MORALES MD, Ot Z79.01 CONSTRUCTION ECONOMIST (CURRENT) USE OF ANTICOAGULANT 10/16/2019 CHETAN MORALES MD, Ot Z79.02 ASSISTED (CURRENT) USE OF ANTITHROMBOTI 10/16/2019 CHETAN MORALES MD, Ot Z79.82 ASSISTED (CURRENT) USE OF ASPIRIN 10/16/2019 CHETAN MORALES MD, Ot Z79.84 ASSISTED (CURRENT) USE OF ORAL HYPOGLYC 10/16/2019 CHETAN MORALES MD, Ot Z82.49 FAMILY HX OF [place] HEART DIS AND OTH DI 10/16/2019 CHETAN MORALES MD, Ot Z88.0 ALLERGY STATUS TO PENICILLIN 10/16/2019 CHETAN MORALES MD, Ot Z90.89 ACQUIRED ABSENCE OF OTHER ORGANS 10/20/2019 CHETAN MORALES MD, Ot B34.9 VIRAL INFECTION, UNSPECIFIED 10/20/2019 CHETAN MORALES MD, Ot E11.40 TYPE 2 DIABETES MELLITUS WITH DIABETIC N 10/20/2019 CHETAN MORALES MD, Ot E78.00 PURE HYPERCHOLESTEROLEMIA, UNSPECIFIED 10/20/2019 CHETAN MORALES MD, Ot E86.1 HYPOVOLEMIA 10/20/2019 CHETAN MORALES MD, Ot F17.210 NICOTINE DEPENDENCE, CIGARETTES, UNCOMPL 10/20/2019 CHETAN MORALES MD, Ot F32.9 MAJOR DEPRESSIVE DISORDER, SINGLE EPISOD 10/20/2019 CHETAN MORALES MD, Ot I10 ESSENTIAL (PRIMARY) HYPERTENSION 10/20/2019 CHETAN MORALES MD, Ot I25.10 ATHSCL HEART DISEASE OF [place] CORONARY 10/20/2019 CHETAN MORALES MD, Ot J44.9 CHRONIC OBSTRUCTIVE PULMONARY DISEASE, U 10/20/2019 CHETAN MORALES MD, Ot K21.9 GASTRO-ESOPHAGEAL REFLUX DISEASE WITHOUT 10/20/2019 CHETAN MORALES MD, Ot R11.2 NAUSEA WITH VOMITING, UNSPECIFIED 10/20/2019 CHETAN MORALES MD, Ot Z79.02 ASSISTED (CURRENT) USE OF ANTITHROMBOTI 10/20/2019 CHETAN MORALES MD, Ot Z79.82 CONSTRUCTION ECONOMIST (CURRENT) USE OF ASPIRIN 10/20/2019 CHETAN MORALES MD, Ot Z79.84 ASSISTED (CURRENT) USE OF ORAL HYPOGLYC 10/20/2019 CHTEAN MORALES MD, Ot Z80.0 FAMILY HISTORY OF MALIGNANT NEOPLASM OF 10/20/2019 CHETAN MORALES MD, Ot Z82.49 FAMILY HX OF [place] HEART DIS AND OTH DI 10/20/2019 CHETAN MORALES MD, Ot Z88.0 ALLERGY STATUS TO PENICILLIN 10/20/2019 CHETAN MORALES MD, Ot Z90.49 ACQUIRED ABSENCE OF OTHER SPECIFIED PART 10/20/2019 CHETAN MORALES MD, Ot Z95.5 PRESENCE OF CORONARY ANGIOPLASTY IMPLANT 01/20/2020 [place] Ot E11.9 TYPE 2 DIABETES MELLITUS WITHOUT COMPLIC 01/20/2020 [place] Ot E78.2 MIXED HYPERLIPIDEMIA 01/20/2020 [place] Ot I25.10 ATHSCL HEART DISEASE OF [place] CORONARY 01/20/2020 [place] Ot J44.9 CHRONIC OBSTRUCTIVE PULMONARY DISEASE, U 03/29/2020 HAMMAD PYLE MD, Ot D68. 9 COAGULATION DEFECT, UNSPECIFIED 03/29/2020 HAMMAD PYLE MD, Ot E11. 42 TYPE 2 DIABETES MELLITUS WITH DIABETIC P 03/29/2020 HAMMAD PYLE MD Ot E11. 51 TYPE 2 DIABETES W DIABETIC PERIPHERAL AN 03/29/2020 HAMMAD PYLE MD Ot E66. 9 OBESITY, UNSPECIFIED 03/29/2020 HAMMAD PYLE MD, Ot E78. 2 MIXED HYPERLIPIDEMIA 03/29/2020 HAMMAD PYLE MD Ot F17.210 NICOTINE DEPENDENCE, CIGARETTES, UNCOMPL 03/29/2020 HAMMAD PYLE MD Ot I11. 9 HYPERTENSIVE HEART DISEASE WITHOUT HEART 03/29/2020 HAMMAD PYLE MD Ot I25. 10 ATHSCL HEART DISEASE OF [place] CORONARY 03/29/2020 HAMMAD PYLE MD Ot I25. 2 OLD MYOCARDIAL INFARCTION 03/29/2020 HAMMAD PYLE MD Ot I47. 1 SUPRAVENTRICULAR TACHYCARDIA 03/29/2020 HAMMAD PYLE MD Ot I48. 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 9 CHRONIC OBSTRUCTIVE PULMONARY DISEASE, U 03/29/2020 HAMMAD PYLE MD Ot Z68. 31 BODY MASS INDEX (BMI) 31.0-31.9, ADULT 03/29/2020 HAMMAD PYLE MD Ot Z79. 01 CONSTRUCTION ECONOMIST (CURRENT) USE OF ANTICOAGULANT 03/29/2020 HAMMAD PYLE MD Ot Z79. 84 ASSISTED (CURRENT) USE OF ORAL HYPOGLYC 03/29/2020 HAMMAD PYLE MD Ot Z79.899 OTHER CONSTRUCTION ECONOMIST (CURRENT) DRUG THERAPY 03/29/2020 HAMMAD PYLE MD Ot Z80. 9 FAMILY HISTORY OF MALIGNANT NEOPLASM, UN 03/29/2020 HAMMAD PYLE MD Ot Z85.038 PERSONAL HISTORY OF MALIGNANT NEOPLASM O 03/29/2020 HAMMAD PYLE MD Ot Z86.010 PERSONAL HISTORY OF COLONIC POLYPS 03/29/2020 HAMMAD PYLE MD Ot Z88. 0 ALLERGY STATUS TO PENICILLIN 04/03/2020 HAMMAD PYLE MD Ot D68. 9 COAGULATION DEFECT, UNSPECIFIED 04/03/2020 HAMMAD PYLE MD Ot E11. 42 TYPE 2 DIABETES MELLITUS WITH DIABETIC P 04/03/2020 HAMMAD PYLE MD Ot E11. 51 TYPE 2 DIABETES W DIABETIC PERIPHERAL AN 04/03/2020 HAMMAD PYLE MD Ot E66. 9 OBESITY, UNSPECIFIED 04/03/2020 HAMMAD PYLE MD Ot E78. 2 MIXED HYPERLIPIDEMIA 04/03/2020 HAMMAD PYLE MD Ot F17.210 NICOTINE DEPENDENCE, CIGARETTES, UNCOMPL 04/03/2020 HAMMAD PYLE MD Ot I11. 9 HYPERTENSIVE HEART DISEASE WITHOUT HEART 04/03/2020 HAMMAD PYLE MD Ot I25. 10 ATHSCL HEART DISEASE OF [place] CORONARY 04/03/2020 HAMMAD PYLE MD Ot I25. 2 OLD MYOCARDIAL INFARCTION 04/03/2020 HAMMAD PYLE MD Ot I47. 1 SUPRAVENTRICULAR TACHYCARDIA 04/03/2020 HAMMAD PYLE MD Ot I48. 0 PAROXYSMAL ATRIAL FIBRILLATION 04/03/2020 HAMMAD PYLE MD, Ot I65. 23 OCCLUSION AND STENOSIS OF BILATERAL PADRON 04/03/2020 HAMMAD PYLE MD, Ot J44. 9 CHRONIC OBSTRUCTIVE PULMONARY DISEASE, U 04/03/2020 HAMMAD PYLE MD, Ot Z68. 31 BODY MASS INDEX (BMI) 31.0-31.9, ADULT 04/03/2020 HAMMAD PYLE MD, Ot Z79. 01 CONSTRUCTION ECONOMIST (CURRENT) USE OF ANTICOAGULANT 04/03/2020 HAMMAD PYLE MD, Ot Z79. 84 ASSISTED (CURRENT) USE OF ORAL HYPOGLYC 04/03/2020 HAMMAD PYLE MD, Ot Z79.899 OTHER CONSTRUCTION ECONOMIST (CURRENT) DRUG THERAPY 04/03/2020 HAMMAD PYLE MD, Ot Z80. 9 FAMILY HISTORY OF MALIGNANT NEOPLASM, UN 04/03/2020 HAMMAD PYLE MD, Ot Z85.038 PERSONAL HISTORY OF MALIGNANT NEOPLASM O 04/03/2020 HAMMAD PYLE MD, Ot Z86.010 PERSONAL HISTORY OF COLONIC POLYPS 04/03/2020 HAMMAD PYLE MD, Ot Z88. 0 ALLERGY STATUS TO PENICILLIN Procedures Code Description Performed By [place] formed On 405705C DI LATION OF 1 COR ART WITH 3 DRUG-ELUT, 05/31/2017 [id number] ME ASURE OF CARDIAC SAMPL PRESSURE, L H 05/31/2017 [id number] FL UOROSCOPY OF MULT COR ART USING L OSM 05/31/2017 [id number] FL UOROSCOPY OF LEFT HEART USING LOW OSMO 05/31/2017 [id number] FL UOROSCOPY OF THORACO- ABDOMINAL AORTA U 05/31/2017 Results Test Result Range Gram stain microscopy - 01/18/17 22:00 GRAM STAIN RESULT FEW GRAM POSITIVE COCCI NRG Gram stain microscopy - 01/18/17 22:00 GRAM STAIN RESULT RARE GRAM POSITIVE COCCI NRG Bacteria identification in wound by cult ure - 01/18/17 22:00 Bacteria identification in wound by culture [id number] NRG FREE TEXT EXTERNAL SENSITIVITY REPORTED AT NRG QUANTITY OF GROWTH Abundant Growth NRG MRSA AGAR MRSA isolated (Screening test for MRSA is positive) NRG CALL POSITIVES (F1 HELP) CALLED TO [facility]/ED AT 01-20-17/ NRG Bacteria identification in wound by cult ure - 01/18/17 22:00 Bacteria identification in wound by culture [id number] NRG FREE TEXT EXTERNAL REFER TO CULTURE [id number], SAME OR GANISM NRG QUANTITY OF GROWTH Moderate Growth NRG MRSA AGAR MRSA isolated (Screening test for MRSA is positive) NRG CALL POSITIVES (F1 HELP) CALLED TO [facility]/ED AT 0715, 01-20-17 NRG Bacterial susceptibility panel - 7 22:00 Oxacillin susceptibility test by minimum inhibitory co ncentration >= NRG Gentamicin susceptibility test by minimum inhibitory c oncentration <= NRG Clindamycin susceptibility test by minimum inhibitory concentration <= NRG Erythromycin susceptibility test by minimum inhibitory concentration >= NRG Trimethoprim/sulfamethoxazole susceptibi lity test by minimum inhibitoryconcentration <= NRG Vancomycin susceptibility test by minimum inhibitory c oncentration 1 NRG Levofloxacin susceptibility test by minimum inhibitory concentration 4 NRG Rifampin susceptibility test by minimum inhibitory con centration <= NRG Tetracycline susceptibility test by minimum inhibitory concentration <= NRG Ciprofloxacin susceptibility test by minimum inhibitor y concentration R NRG Complete blood count (CBC) with automate d white blood cell (WBC) differential - 01/18/17 22:20 Blood leukocytes automated count (number/volume) 11.1 10*3/uL 4.3-11.0 Blood erythrocytes automated count (number/volume) 4.58 10*6/uL 4.35-5.85 Venous blood hemoglobin measurement (mass/volume) 14.4 g/dL 13.3-17.7 Blood hematocrit (volume fraction) 42 % 40-54 Automated erythrocyte mean corpuscular volume 92 [ foz_us] 80-99 Automated erythrocyte mean corpuscular h emoglobin (mass per erythrocyte) 31 pg 25-34 Automated erythrocyte mean corpuscular h emoglobin concentration measurement (mass/volume) 34 g/dL 32-36 Automated erythrocyte distribution width ratio 13. 0 % 10.0- 14.5 Automated blood platelet count (count/volume) 235 10*3/uL 130-400 Automated blood platelet mean volume measurement 9.7 [foz_us] 7.4-10.4 Automated blood neutrophils/100 leukocytes 57 % 42-75 Automated blood lymphocytes/100 leukocytes 32 % 12-44 Blood monocytes/100 leukocytes 8 % 0-12 Automated blood eosinophils/100 leukocytes 2 % 0-10 Automated blood basophils/100 leukocytes 0 % 0-10 Blood neutrophils automated count (number/volume) 6.4 10*3 1.8-7.8 Blood lymphocytes automated count (number/volume) 3.6 10*3 1.0-4.0 Blood monocytes automated count (number/volume) 0. 9 10*3 0.0-1.0 Automated eosinophil count 0.2 10*3/uL 0 .0-0.3 Automated blood basophil count (count/volume) 0.0 10*3/uL 0.0-0.1 Comprehensive metabolic panel - 01/18/17 22:20 Serum or plasma sodium measurement (moles/volume) 139 mmol/L 135-145 Serum or plasma potassium measurement (moles/volume) 3.8 mmol/L 3.6-5.0 Serum or plasma chloride measurement (moles/volume) 107 mmol/L 98-107 Carbon dioxide 22 mmol/L 21-32 Serum or plasma anion gap determination (moles/volume) 10 mmol/L 5-14 Serum or plasma urea nitrogen measurement (mass/volume ) 11 mg/dL 7-18 Serum or plasma creatinine measurement (mass/volume) 0.89 mg/dL 0.60-1.30 Serum or plasma urea nitrogen/creatinine mass ratio 12 NRG Serum or plasma creatinine measurement w ith calculation of estimated glomerular filtration rate > NRG Serum or plasma glucose measurement (mass/volume) 205 mg/dL 70-105 Serum or plasma calcium measurement (mass/volume) 8.9 mg/dL 8.5-10.1 Serum or plasma total bilirubin measurement (mass/volu me) 0.2 mg/dL 0.1-1.0 Serum or plasma alkaline phosphatase eml surement (enzymatic activity/volume) 79 U/L 40-136 Serum or plasma aspartate aminotransfera se measurement (enzymatic activity/volume) 16 U/L 5-34 Serum or plasma alanine aminotransferase measurement (enzymatic activity/volume) 17 U/L 0-55 Serum or plasma protein measurement (mass/volume) 6.7 g/dL 6.4-8.2 Serum or plasma albumin measurement (mass/volume) 3.8 g/dL 3.2-4.5 Serum or plasma C reactive protein measu rement (mass/volume) - 01/18/17 22:20 Serum or plasma C reactive protein measurement (mass/v olume) 0.32 mg/dL 0.00-0.50 Erythrocyte sedimentation rate by kali gren method - 01/18/17 22:20 Erythrocyte sedimentation rate by westergren method 7 mm 0- 30 Complete urinalysis with reflex to cultu re - 01/18/17 22:47 Urine color determination YELLOW NRG Urine clarity determination CLEAR NR G Urine pH measurement by test strip 6 5-9 Specific gravity of urine by test strip 1.010 1.016-1.022 Urine protein assay by test strip, semi-quantitative 2+ NEGATIVE Urine glucose detection by automated test strip 4+ NEGATIVE Erythrocytes detection in urine sediment by light micr oscopy NEGATIVE NEGATIVE Urine ketones detection by automated test strip NE GATIVE NEGATIVE Urine nitrite detection by test strip NEGATIVE NEGATIVE Urine total bilirubin detection by test strip NEGA TIVE NEGATIVE Urine urobilinogen measurement by automated test strip (mass/volume) NORMAL NORMAL Urine leukocyte esterase detection by dipstick NEG ATIVE NEGATIVE Automated urine sediment erythrocyte cou nt by microscopy (number/high power field) NONE NRG Automated urine sediment leukocyte count by microscopy (number/high power field) NONE NRG Bacteria detection in urine sediment by light microsco py NEGATIVE NRG Squamous epithelial cells detection in u rine sediment by light microscopy RARE NRG Crystals detection in urine sediment by light microsco py NONE NRG Casts detection in urine sediment by light microscopy NONE NRG Mucus detection in urine sediment by light microscopy NEGATIVE NRG Complete urinalysis with reflex to culture NO NRG Complete blood count (CBC) with automate d white blood cell (WBC) differential - 05/31/17 05:58 Blood leukocytes automated count (number/volume) 12.6 10*3/uL 4.3-11.0 Blood erythrocytes automated count (number/volume) 4.99 10*6/uL 4.35-5.85 Venous blood hemoglobin measurement (mass/volume) 15.7 g/dL 13.3-17.7 Blood hematocrit (volume fraction) 47 % 40-54 Automated erythrocyte mean corpuscular volume 93 [ foz_us] 80-99 Automated erythrocyte mean corpuscular h emoglobin (mass per erythrocyte) 32 pg 25-34 Automated erythrocyte mean corpuscular h emoglobin concentration measurement (mass/volume) 34 g/dL 32-36 Automated erythrocyte distribution width ratio 13. 7 % 10.0- 14.5 Automated blood platelet count (count/volume) 219 10*3/uL 130-400 Automated blood platelet mean volume measurement 9.8 [foz_us] 7.4-10.4 Automated blood neutrophils/100 leukocytes 53 % 42-75 Automated blood lymphocytes/100 leukocytes 38 % 12-44 Blood monocytes/100 leukocytes 8 % 0-12 Automated blood eosinophils/100 leukocytes 1 % 0-10 Automated blood basophils/100 leukocytes 0 % 0-10 Blood neutrophils automated count (number/volume) 6.7 10*3 1.8-7.8 Blood lymphocytes automated count (number/volume) 4.8 10*3 1.0-4.0 Blood monocytes automated count (number/volume) 1. 0 10*3 0.0-1.0 Automated eosinophil count 0.2 10*3/uL 0 .0-0.3 Automated blood basophil count (count/volume) 0.0 10*3/uL 0.0-0.1 PT panel in platelet poor plasma by coag ulation assay - 05/31/17 05:58 Prothrombin time (PT) in platelet poor plasma by coagu lation assay 12.1 s 12.2-14.7 INR in platelet poor plasma or blood by coagulation as say 0.9 0.8-1.4 Activated partial thromboplastin time (a PTT) in platelet poor plasma bycoagulation assay - 05/31/17 05:58 Activated partial thromboplastin time (a PTT) in platelet poor plasma bycoagulation assay 35 s 24-35 Comprehensive metabolic panel - 05/31/17 05:58 Serum or plasma sodium measurement (moles/volume) 139 mmol/L 135-145 Serum or plasma potassium measurement (moles/volume) 4.1 mmol/L 3.6-5.0 Serum or plasma chloride measurement (moles/volume) 111 mmol/L 98-107 Carbon dioxide 17 mmol/L 21-32 Serum or plasma anion gap determination (moles/volume) 11 mmol/L 5-14 Serum or plasma urea nitrogen measurement (mass/volume ) 12 mg/dL 7-18 Serum or plasma creatinine measurement (mass/volume) 0.92 mg/dL 0.60-1.30 Serum or plasma urea nitrogen/creatinine mass ratio 13 NRG Serum or plasma creatinine measurement w ith calculation of estimated glomerular filtration rate > NRG Serum or plasma glucose measurement (mass/volume) 220 mg/dL 70-105 Serum or plasma calcium measurement (mass/volume) 9.1 mg/dL 8.5-10.1 Serum or plasma total bilirubin measurement (mass/volu me) 0.3 mg/dL 0.1-1.0 Serum or plasma alkaline phosphatase mel surement (enzymatic activity/volume) 73 U/L 40-136 Serum or plasma aspartate aminotransfera se measurement (enzymatic activity/volume) 16 U/L 5-34 Serum or plasma alanine aminotransferase measurement (enzymatic activity/volume) 24 U/L 0-55 Serum or plasma protein measurement (mass/volume) 6.9 g/dL 6.4-8.2 Serum or plasma albumin measurement (mass/volume) 3.9 g/dL 3.2-4.5 Magnesium - 05/31/17 05:58 Magnesium 2.0 mg/dL 1.8-2.4 Serum or plasma troponin i.cardiac measu rement (mass/volume) - 05/31/17 05:58 Serum or plasma troponin i.cardiac measurement (mass/v olume) < ng/mL <0.30 Myoglobin, serum - 05/31/17 05:58 Myoglobin, serum 35.5 ng/mL 10.0-92.0 THYROID STIMULATING HORMONE - 05/31/17 0 5:58 THYROID STIMULATING HORMONE 1.06 u[iU]/mL 0.35-4.94 Fibrin D-dimer FEU measurement in platel et poor plasma (mass/volume) - 05/31/17 06:20 Fibrin D-dimer FEU measurement in platelet poor plasma (mass/volume) 0.28 ug/mL 0.00-0.49 Methicillin resistant Staphylococcus aur eus (MRSA) screening culture - 05/31/17 08:25 Methicillin resistant Staphylococcus aureus (MRSA) scr eening culture NEG NRG Capillary blood glucose measurement by g lucometer (mass/volume) - 05/31/17 10:23 Capillary blood glucose measurement by glucometer (mas s/volume) 127 mg/dL 70-110 Serum or plasma troponin i.cardiac measu rement (mass/volume) - 05/31/17 13:50 Serum or plasma troponin i.cardiac measurement (mass/v olume) < ng/mL <0.30 Capillary blood glucose measurement by g lucometer (mass/volume) - 05/31/17 14:13 Capillary blood glucose measurement by glucometer (mas s/volume) 63 mg/dL 70-110 Capillary blood glucose measurement by g lucometer (mass/volume) - 05/31/17 15:09 Capillary blood glucose measurement by glucometer (mas s/volume) 91 mg/dL 70-110 Capillary blood glucose measurement by g lucometer (mass/volume) - 05/31/17 20:59 Capillary blood glucose measurement by glucometer (mas s/volume) 158 mg/dL 70-110 Complete blood count (CBC) with automate d white blood cell (WBC) differential - 06/01/17 05:30 Blood leukocytes automated count (number/volume) 10.9 10*3/uL 4.3-11.0 Blood erythrocytes automated count (number/volume) 4.70 10*6/uL 4.35-5.85 Venous blood hemoglobin measurement (mass/volume) 14.5 g/dL 13.3-17.7 Blood hematocrit (volume fraction) 44 % 40-54 Automated erythrocyte mean corpuscular volume 94 [ foz_us] 80-99 Automated erythrocyte mean corpuscular h emoglobin (mass per erythrocyte) 31 pg 25-34 Automated erythrocyte mean corpuscular h emoglobin concentration measurement (mass/volume) 33 g/dL 32-36 Automated erythrocyte distribution width ratio 13. 9 % 10.0- 14.5 Automated blood platelet count (count/volume) 216 10*3/uL 130-400 Automated blood platelet mean volume measurement 9.7 [foz_us] 7.4-10.4 Automated blood neutrophils/100 leukocytes 61 % 42-75 Automated blood lymphocytes/100 leukocytes 31 % 12-44 Blood monocytes/100 leukocytes 7 % 0-12 Automated blood eosinophils/100 leukocytes 1 % 0-10 Automated blood basophils/100 leukocytes 0 % 0-10 Blood neutrophils automated count (number/volume) 6.6 10*3 1.8-7.8 Blood lymphocytes automated count (number/volume) 3.4 10*3 1.0-4.0 Blood monocytes automated count (number/volume) 0. 8 10*3 0.0-1.0 Automated eosinophil count 0.1 10*3/uL 0 .0-0.3 Automated blood basophil count (count/volume) 0.0 10*3/uL 0.0-0.1 Comprehensive metabolic panel - 06/01/17 05:30 Serum or plasma sodium measurement (moles/volume) 141 mmol/L 135-145 Serum or plasma potassium measurement (moles/volume) 3.8 mmol/L 3.6-5.0 Serum or plasma chloride measurement (moles/volume) 112 mmol/L 98-107 Carbon dioxide 18 mmol/L 21-32 Serum or plasma anion gap determination (moles/volume) 11 mmol/L 5-14 Serum or plasma urea nitrogen measurement (mass/volume ) 9 mg/dL 7-18 Serum or plasma creatinine measurement (mass/volume) 0.77 mg/dL 0.60-1.30 Serum or plasma urea nitrogen/creatinine mass ratio 12 NRG Serum or plasma creatinine measurement w ith calculation of estimated glomerular filtration rate > NRG Serum or plasma glucose measurement (mass/volume) 104 mg/dL 70-105 Serum or plasma calcium measurement (mass/volume) 8.6 mg/dL 8.5-10.1 Serum or plasma total bilirubin measurement (mass/volu me) 0.3 mg/dL 0.1-1.0 Serum or plasma alkaline phosphatase mel surement (enzymatic activity/volume) 64 U/L 40-136 Serum or plasma aspartate aminotransfera se measurement (enzymatic activity/volume) 17 U/L 5-34 Serum or plasma alanine aminotransferase measurement (enzymatic activity/volume) 21 U/L 0-55 Serum or plasma protein measurement (mass/volume) 6.4 g/dL 6.4-8.2 Serum or plasma albumin measurement (mass/volume) 3.6 g/dL 3.2-4.5 Serum or plasma phosphate measurement (m ass/volume) - 06/01/17 05:30 Serum or plasma phosphate measurement (mass/volume) 2.8 mg/dL 2.3-4.7 Magnesium - 06/01/17 05:30 Magnesium 2.1 mg/dL 1.8-2.4 Myoglobin, serum - 06/01/17 05:30 Myoglobin, serum 35.9 ng/mL 10.0-92.0 Lipid 1996 panel - 06/01/17 05:30 Serum or plasma triglyceride measurement (mass/volume) 675 mg/dL <150 Serum or plasma cholesterol measurement (mass/volume) 168 mg/dL < 200 Serum or plasma cholesterol in HDL measurement (mass/v olume) 22 mg/dL 40-60 Cholesterol in LDL [mass/volume] in serum or plasma by direct assay 64 mg/dL 1-129 Serum or plasma cholesterol in VLDL measurement (mass/ volume) 135 mg/dL 5-40 Complete urinalysis with reflex to cultu re - 06/04/17 07:14 Urine color determination YELLOW NRG Urine clarity determination CLEAR NR G Urine pH measurement by test strip 5 5-9 Specific gravity of urine by test strip 1.015 1.016-1.022 Urine protein assay by test strip, semi-quantitative 2+ NEGATIVE Urine glucose detection by automated test strip 3+ NEGATIVE Erythrocytes detection in urine sediment by light micr oscopy 1+ NEGATIVE Urine ketones detection by automated test strip NE GATIVE NEGATIVE Urine nitrite detection by test strip NEGATIVE NEGATIVE Urine total bilirubin detection by test strip NEGA TIVE NEGATIVE Urine urobilinogen measurement by automated test strip (mass/volume) NORMAL NORMAL Urine leukocyte esterase detection by dipstick 1+ NEGATIVE Automated urine sediment erythrocyte cou nt by microscopy (number/high power field) [HPF] NRG Automated urine sediment leukocyte count by microscopy (number/high power field) [HPF] NRG Bacteria detection in urine sediment by light microsco py TRACE NRG Squamous epithelial cells detection in u rine sediment by light microscopy 0-2 NRG Crystals detection in urine sediment by light microsco py NONE NRG Casts detection in urine sediment by light microscopy NONE NRG Mucus detection in urine sediment by light microscopy SMALL NRG Complete urinalysis with reflex to culture YES NRG Bacterial urine culture - 06/04/17 07:14 URINE CULTURE RESULTS <10,000/ML NRG Automated blood complete blood count (he mogram) panel - 06/04/17 07:45 Blood leukocytes automated count (number/volume) 11.7 10*3/uL 4.3-11.0 Blood erythrocytes automated count (number/volume) 5.17 10*6/uL 4.35-5.85 Venous blood hemoglobin measurement (mass/volume) 16.2 g/dL 13.3-17.7 Blood hematocrit (volume fraction) 48 % 40-54 Automated erythrocyte mean corpuscular volume 93 [ foz_us] 80-99 Automated erythrocyte mean corpuscular h emoglobin (mass per erythrocyte) 31 pg 25-34 Automated erythrocyte mean corpuscular h emoglobin concentration measurement (mass/volume) 34 g/dL 32-36 Automated erythrocyte distribution width ratio 14. 0 % 10.0- 14.5 Automated blood platelet count (count/volume) 242 10*3/uL 130-400 Automated blood platelet mean volume measurement 9.9 [foz_us] 7.4-10.4 PT panel in platelet poor plasma by coag ulation assay - 06/04/17 07:45 Prothrombin time (PT) in platelet poor plasma by coagu lation assay 12.7 s 12.2-14.7 INR in platelet poor plasma or blood by coagulation as say 0.9 0.8-1.4 Activated partial thromboplastin time (a PTT) in platelet poor plasma bycoagulation assay - 06/04/17 07:45 Activated partial thromboplastin time (a PTT) in platelet poor plasma bycoagulation assay 35 s 24-35 Comprehensive metabolic panel - 06/04/17 07:45 Serum or plasma sodium measurement (moles/volume) 138 mmol/L 135-145 Serum or plasma potassium measurement (moles/volume) 3.8 mmol/L 3.6-5.0 Serum or plasma chloride measurement (moles/volume) 107 mmol/L 98-107 Carbon dioxide 21 mmol/L 21-32 Serum or plasma anion gap determination (moles/volume) 10 mmol/L 5-14 Serum or plasma urea nitrogen measurement (mass/volume ) 16 mg/dL 7-18 Serum or plasma creatinine measurement (mass/volume) 0.91 mg/dL 0.60-1.30 Serum or plasma urea nitrogen/creatinine mass ratio 18 NRG Serum or plasma creatinine measurement w ith calculation of estimated glomerular filtration rate > NRG Serum or plasma glucose measurement (mass/volume) 171 mg/dL 70-105 Serum or plasma calcium measurement (mass/volume) 9.6 mg/dL 8.5-10.1 Serum or plasma total bilirubin measurement (mass/volu me) 0.6 mg/dL 0.1-1.0 Serum or plasma alkaline phosphatase mel surement (enzymatic activity/volume) 72 U/L 40-136 Serum or plasma aspartate aminotransfera se measurement (enzymatic activity/volume) 18 U/L 5-34 Serum or plasma alanine aminotransferase measurement (enzymatic activity/volume) 22 U/L 0-55 Serum or plasma protein measurement (mass/volume) 7.2 g/dL 6.4-8.2 Serum or plasma albumin measurement (mass/volume) 4.2 g/dL 3.2-4.5 Methicillin resistant Staphylococcus aur eus (MRSA) screening culture - 06/04/17 07:45 Methicillin resistant Staphylococcus aureus (MRSA) scr eening culture NEG NRG Capillary blood glucose measurement by g lucometer (mass/volume) - 06/04/17 21:24 Capillary blood glucose measurement by glucometer (mas s/volume) 223 mg/dL 70-110 Automated blood complete blood count (he mogram) panel - 06/05/17 03:41 Blood leukocytes automated count (number/volume) 12.4 10*3/uL 4.3-11.0 Blood erythrocytes automated count (number/volume) 4.96 10*6/uL 4.35-5.85 Venous blood hemoglobin measurement (mass/volume) 15.4 g/dL 13.3-17.7 Blood hematocrit (volume fraction) 47 % 40-54 Automated erythrocyte mean corpuscular volume 94 [ foz_us] 80-99 Automated erythrocyte mean corpuscular h emoglobin (mass per erythrocyte) 31 pg 25-34 Automated erythrocyte mean corpuscular h emoglobin concentration measurement (mass/volume) 33 g/dL 32-36 Automated erythrocyte distribution width ratio 13. 9 % 10.0- 14.5 Automated blood platelet count (count/volume) 255 10*3/uL 130-400 Automated blood platelet mean volume measurement 10.2 [foz_us] 7.4-10.4 Whole blood basic metabolic panel - 05/20 05/05 03:41 Serum or plasma sodium measurement (moles/volume) 136 mmol/L 135-145 Serum or plasma potassium measurement (moles/volume) 4.1 mmol/L 3.6-5.0 Serum or plasma chloride measurement (moles/volume) 106 mmol/L 98-107 Carbon dioxide 18 mmol/L 21-32 Serum or plasma anion gap determination (moles/volume) 12 mmol/L 5-14 Serum or plasma urea nitrogen measurement (mass/volume ) 15 mg/dL 7-18 Serum or plasma creatinine measurement (mass/volume) 0.93 mg/dL 0.60-1.30 Serum or plasma urea nitrogen/creatinine mass ratio 16 NRG Serum or plasma creatinine measurement w ith calculation of estimated glomerular filtration rate > NRG Serum or plasma glucose measurement (mass/volume) 183 mg/dL 70-105 Serum or plasma calcium measurement (mass/volume) 9.3 mg/dL 8.5-10.1 LIPID PANEL - 07/22/17 08:22 CHOLESTEROL, TOTAL 120 mg/dL <200 HDL CHOLESTEROL 28 mg/dL >40 TRIGLYCERIDES 345 mg/dL <150 LDL-CHOLESTEROL 56 mg/dL (calc) NRG CHOL/HDLC RATIO 4.3 (calc) <5.0 NON HDL CHOLESTEROL 92 mg/dL (calc) <130 Automated blood complete blood count (he mogram) panel - 08/06/17 11:15 Blood leukocytes automated count (number/volume) 11.1 10*3/uL 4.3-11.0 Blood erythrocytes automated count (number/volume) 5.01 10*6/uL 4.35-5.85 Venous blood hemoglobin measurement (mass/volume) 15.5 g/dL 13.3-17.7 Blood hematocrit (volume fraction) 47 % 40-54 Automated erythrocyte mean corpuscular volume 93 [ foz_us] 80-99 Automated erythrocyte mean corpuscular h emoglobin (mass per erythrocyte) 31 pg 25-34 Automated erythrocyte mean corpuscular h emoglobin concentration measurement (mass/volume) 33 g/dL 32-36 Automated erythrocyte distribution width ratio 13. 6 % 10.0- 14.5 Automated blood platelet count (count/volume) 232 10*3/uL 130-400 Automated blood platelet mean volume measurement 9.6 [foz_us] 7.4-10.4 PT panel in platelet poor plasma by coag ulation assay - 08/06/17 11:15 Prothrombin time (PT) in platelet poor plasma by coagu lation assay 12.9 s 12.2-14.7 INR in platelet poor plasma or blood by coagulation as say 1.0 0.8-1.4 Activated partial thromboplastin time (a PTT) in platelet poor plasma bycoagulation assay - 08/06/17 11:15 Activated partial thromboplastin time (a PTT) in platelet poor plasma bycoagulation assay 36 s 24-35 Comprehensive metabolic panel - 08/06/17 11:15 Serum or plasma sodium measurement (moles/volume) 137 mmol/L 135-145 Serum or plasma potassium measurement (moles/volume) 4.2 mmol/L 3.6-5.0 Serum or plasma chloride measurement (moles/volume) 107 mmol/L 98-107 Carbon dioxide 20 mmol/L 21-32 Serum or plasma anion gap determination (moles/volume) 10 mmol/L 5-14 Serum or plasma urea nitrogen measurement (mass/volume ) 12 mg/dL 7-18 Serum or plasma creatinine measurement (mass/volume) 0.78 mg/dL 0.60-1.30 Serum or plasma urea nitrogen/creatinine mass ratio 15 NRG Serum or plasma creatinine measurement w ith calculation of estimated glomerular filtration rate > NRG Serum or plasma glucose measurement (mass/volume) 94 mg/dL 70-105 Serum or plasma calcium measurement (mass/volume) 9.5 mg/dL 8.5-10.1 Serum or plasma total bilirubin measurement (mass/volu me) 0.5 mg/dL 0.1-1.0 Serum or plasma alkaline phosphatase mel surement (enzymatic activity/volume) 64 U/L 40-136 Serum or plasma aspartate aminotransfera se measurement (enzymatic activity/volume) 20 U/L 5-34 Serum or plasma alanine aminotransferase measurement (enzymatic activity/volume) 17 U/L 0-55 Serum or plasma protein measurement (mass/volume) 7.4 g/dL 6.4-8.2 Serum or plasma albumin measurement (mass/volume) 4.3 g/dL 3.2-4.5 Methicillin resistant Staphylococcus aur eus (MRSA) screening culture - 08/06/17 11:15 Methicillin resistant Staphylococcus aureus (MRSA) scr eening culture NEG NRG Capillary blood glucose measurement by g lucometer (mass/volume) - 01/21/18 12:09 Capillary blood glucose measurement by glucometer (mas s/volume) 101 mg/dL 70-110 CMP - 02/09/18 12:27 GLUCOSE 81 mg/dL 65-99 UREA NITROGEN (BUN) 11 mg/dL 7-25 CREATININE 0.74 mg/dL 0.70-1.33 eGFR NON-AFR. MONEGASQUE 107 mL/min/1.73m2 > OR = 60 eGFR 124 mL/min/1.73m2 > OR = 60 BUN/CREATININE RATIO NOT APPLICABLE (calc) 6-22 SODIUM 142 mmol/L 135-146 POTASSIUM 4.2 mmol/L 3.5-5.3 CHLORIDE 107 mmol/L 98-110 CARBON DIOXIDE 26 mmol/L 20-31 CALCIUM 9.5 mg/dL 8.6-10.3 PROTEIN, TOTAL 7.2 g/dL 6.1-8.1 ALBUMIN 4.6 g/dL 3.6-5.1 GLOBULIN 2.6 g/dL (calc) 1.9-3.7 ALBUMIN/GLOBULIN RATIO 1.8 (calc) 1.0-2. 5 BILIRUBIN, TOTAL 0.4 mg/dL 0.2-1.2 ALKALINE PHOSPHATASE 67 U/L 40-115 AST 16 U/L 10-35 ALT 14 U/L 9-46 Complete blood count (CBC) with automate d white blood cell (WBC) differential - 03/13/18 17:50 Blood leukocytes automated count (number/volume) 15.6 10*3/uL 4.3-11.0 Blood erythrocytes automated count (number/volume) 5.13 10*6/uL 4.35-5.85 Venous blood hemoglobin measurement (mass/volume) 16.4 g/dL 13.3-17.7 Blood hematocrit (volume fraction) 48 % 40-54 Automated erythrocyte mean corpuscular volume 94 [ foz_us] 80-99 Automated erythrocyte mean corpuscular h emoglobin (mass per erythrocyte) 32 pg 25-34 Automated erythrocyte mean corpuscular h emoglobin concentration measurement (mass/volume) 34 g/dL 32-36 Automated erythrocyte distribution width ratio 14. 6 % 10.0- 14.5 Automated blood platelet count (count/volume) 335 10*3/uL 130-400 Automated blood platelet mean volume measurement 10.0 [foz_us] 7.4-10.4 Automated blood neutrophils/100 leukocytes 62 % 42-75 Automated blood lymphocytes/100 leukocytes 28 % 12-44 Blood monocytes/100 leukocytes 9 % 0-12 Automated blood eosinophils/100 leukocytes 0 % 0-10 Automated blood basophils/100 leukocytes 0 % 0-10 Blood neutrophils automated count (number/volume) 9.7 10*3 1.8-7.8 Blood lymphocytes automated count (number/volume) 4.4 10*3 1.0-4.0 Blood monocytes automated count (number/volume) 1. 5 10*3 0.0-1.0 Automated eosinophil count 0.1 10*3/uL 0 .0-0.3 Automated blood basophil count (count/volume) 0.0 10*3/uL 0.0-0.1 Comprehensive metabolic panel - 03/13/18 17:50 Serum or plasma sodium measurement (moles/volume) 140 mmol/L 135-145 Serum or plasma potassium measurement (moles/volume) 4.3 mmol/L 3.6-5.0 Serum or plasma chloride measurement (moles/volume) 109 mmol/L 98-107 Carbon dioxide 20 mmol/L 21-32 Serum or plasma anion gap determination (moles/volume) 11 mmol/L 5-14 Serum or plasma urea nitrogen measurement (mass/volume ) 22 mg/dL 7-18 Serum or plasma creatinine measurement (mass/volume) 1.46 mg/dL 0.60-1.30 Serum or plasma urea nitrogen/creatinine mass ratio 15 NRG Serum or plasma creatinine measurement w ith calculation of estimated glomerular filtration rate 51 NRG Serum or plasma glucose measurement (mass/volume) 223 mg/dL 70-105 Serum or plasma calcium measurement (mass/volume) 9.6 mg/dL 8.5-10.1 Serum or plasma total bilirubin measurement (mass/volu me) 0.6 mg/dL 0.1-1.0 Serum or plasma alkaline phosphatase mel surement (enzymatic activity/volume) 72 U/L 40-136 Serum or plasma aspartate aminotransfera se measurement (enzymatic activity/volume) 19 U/L 5-34 Serum or plasma alanine aminotransferase measurement (enzymatic activity/volume) 27 U/L 0-55 Serum or plasma protein measurement (mass/volume) 7.0 g/dL 6.4-8.2 Serum or plasma albumin measurement (mass/volume) 4.1 g/dL 3.2-4.5 Magnesium - 03/13/18 17:50 Magnesium 1.6 mg/dL 1.8-2.4 Serum or plasma troponin i.cardiac measu rement (mass/volume) - 03/13/18 17:50 Serum or plasma troponin i.cardiac measurement (mass/v olume) < ng/mL <0.30 Blood manual differential performed dete ction - 03/13/18 17:50 Blood monocytes/100 leukocytes 9 % NRG Manual blood segmented neutrophils/100 leukocytes 70 % NRG Manual blood lymphocytes/100 leukocytes 21 % NRG Blood erythrocyte morphology finding identification NORMAL NRG Serum or plasma lithium measurement (mol es/volume) - 03/13/18 17:50 BNP level 671.9 pg/mL <100.0 Myoglobin, serum - 03/13/18 17:50 Myoglobin, serum 98.7 ng/mL 10.0-92.0 PT panel in platelet poor plasma by coag ulation assay - 03/13/18 19:15 Prothrombin time (PT) in platelet poor plasma by coagu lation assay 14.2 s 12.2-14.7 INR in platelet poor plasma or blood by coagulation as say 1.1 0.8-1.4 Activated partial thromboplastin time (a PTT) in platelet poor plasma bycoagulation assay - 03/13/18 19:15 Activated partial thromboplastin time (a PTT) in platelet poor plasma bycoagulation assay 33 s 24-35 Fibrin D-dimer FEU measurement in platel et poor plasma (mass/volume) - 03/13/18 19:15 Fibrin D-dimer FEU measurement in platelet poor plasma (mass/volume) 0.34 ug/mL 0.00-0.49 Capillary blood glucose measurement by g lucometer (mass/volume) - 03/13/18 22:24 Capillary blood glucose measurement by glucometer (mas s/volume) 145 mg/dL 70-110 Complete blood count (CBC) with automate d white blood cell (WBC) differential - 03/14/18 03:16 Blood leukocytes automated count (number/volume) 9.9 10*3/uL 4.3-11.0 Blood erythrocytes automated count (number/volume) 4.23 10*6/uL 4.35-5.85 Venous blood hemoglobin measurement (mass/volume) 13.4 g/dL 13.3-17.7 Blood hematocrit (volume fraction) 41 % 40-54 Automated erythrocyte mean corpuscular volume 96 [ foz_us] 80-99 Automated erythrocyte mean corpuscular h emoglobin (mass per erythrocyte) 32 pg 25-34 Automated erythrocyte mean corpuscular h emoglobin concentration measurement (mass/volume) 33 g/dL 32-36 Automated erythrocyte distribution width ratio 14. 3 % 10.0- 14.5 Automated blood platelet count (count/volume) 231 10*3/uL 130-400 Automated blood platelet mean volume measurement 9.5 [foz_us] 7.4-10.4 Automated blood neutrophils/100 leukocytes 57 % 42-75 Automated blood lymphocytes/100 leukocytes 34 % 12-44 Blood monocytes/100 leukocytes 8 % 0-12 Automated blood eosinophils/100 leukocytes 1 % 0-10 Automated blood basophils/100 leukocytes 0 % 0-10 Blood neutrophils automated count (number/volume) 5.6 10*3 1.8-7.8 Blood lymphocytes automated count (number/volume) 3.4 10*3 1.0-4.0 Blood monocytes automated count (number/volume) 0. 8 10*3 0.0-1.0 Automated eosinophil count 0.1 10*3/uL 0 .0-0.3 Automated blood basophil count (count/volume) 0.0 10*3/uL 0.0-0.1 Lipid 1996 panel - 03/14/18 03:16 Serum or plasma triglyceride measurement (mass/volume) 382 mg/dL <150 Serum or plasma cholesterol measurement (mass/volume) 80 mg/dL < 200 Serum or plasma cholesterol in HDL measurement (mass/v olume) 19 mg/dL 40-60 Cholesterol in LDL [mass/volume] in serum or plasma by direct assay 20 mg/dL 1-129 Serum or plasma cholesterol in VLDL measurement (mass/ volume) 76 mg/dL 5-40 Whole blood basic metabolic panel - 02/18 04/06 03:16 Serum or plasma sodium measurement (moles/volume) 140 mmol/L 135-145 Serum or plasma potassium measurement (moles/volume) 4.1 mmol/L 3.6-5.0 Serum or plasma chloride measurement (moles/volume) 111 mmol/L 98-107 Carbon dioxide 19 mmol/L 21-32 Serum or plasma anion gap determination (moles/volume) 10 mmol/L 5-14 Serum or plasma urea nitrogen measurement (mass/volume ) 19 mg/dL 7-18 Serum or plasma creatinine measurement (mass/volume) 0.91 mg/dL 0.60-1.30 Serum or plasma urea nitrogen/creatinine mass ratio 21 NRG Serum or plasma creatinine measurement w ith calculation of estimated glomerular filtration rate > NRG Serum or plasma glucose measurement (mass/volume) 240 mg/dL 70-105 Serum or plasma calcium measurement (mass/volume) 8.1 mg/dL 8.5-10.1 Capillary blood glucose measurement by g lucometer (mass/volume) - 03/14/18 05:04 Capillary blood glucose measurement by glucometer (mas s/volume) 228 mg/dL 70-110 Capillary blood glucose measurement by g lucometer (mass/volume) - 03/14/18 12:59 Capillary blood glucose measurement by glucometer (mas s/volume) 268 mg/dL 70-110 LIVER PANEL (LFT) - 06/25/18 08:41 PROTEIN, TOTAL 7.5 g/dL 6.1-8.1 ALBUMIN 4.5 g/dL 3.6-5.1 GLOBULIN 3.0 g/dL (calc) 1.9-3.7 ALBUMIN/GLOBULIN RATIO 1.5 (calc) 1.0-2. 5 BILIRUBIN, TOTAL 0.3 mg/dL 0.2-1.2 ALKALINE PHOSPHATASE 95 U/L 40-115 AST 19 U/L 10-35 ALT 21 U/L 9-46 BILIRUBIN, DIRECT 0.1 mg/dL < OR = 0.2 BILIRUBIN, INDIRECT 0.2 mg/dL (calc) 0.2 -1.2 CMP - 09/09/18 10:10 GLUCOSE 148 mg/dL 65-99 UREA NITROGEN (BUN) 9 mg/dL 7-25 CREATININE 0.81 mg/dL 0.70-1.33 eGFR NON-AFR. MONEGASQUE 102 mL/min/1.73m2 > OR = 60 eGFR 118 mL/min/1.73m2 > OR = 60 BUN/CREATININE RATIO NOT APPLICABLE (calc) 6-22 SODIUM 138 mmol/L 135-146 POTASSIUM 4.6 mmol/L 3.5-5.3 CHLORIDE 105 mmol/L 98-110 CARBON DIOXIDE 27 mmol/L 20-32 CALCIUM 9.5 mg/dL 8.6-10.3 PROTEIN, TOTAL 7.0 g/dL 6.1-8.1 ALBUMIN 4.4 g/dL 3.6-5.1 GLOBULIN 2.6 g/dL (calc) 1.9-3.7 ALBUMIN/GLOBULIN RATIO 1.7 (calc) 1.0-2. 5 BILIRUBIN, TOTAL 0.5 mg/dL 0.2-1.2 ALKALINE PHOSPHATASE 95 U/L 40-115 AST 17 U/L 10-35 ALT 19 U/L 9-46 MICROALBUMIN/CREATININE RATIO, URINE - 0 12/16/18 12:59 CREATININE, RANDOM URINE 94 mg/dL 20-32 0 MICROALBUMIN 39.7 mg/dL See Note: MICROALBUMIN/CREATININE RATIO, RANDOM URINE 422 mcg/mg creat <30 LIPID PANEL - 02/26/19 14:14 CHOLESTEROL, TOTAL 106 mg/dL <200 HDL CHOLESTEROL 28 mg/dL >40 TRIGLYCERIDES 308 mg/dL <150 LDL-CHOLESTEROL 46 mg/dL (calc) NRG CHOL/HDLC RATIO 3.8 (calc) <5.0 NON HDL CHOLESTEROL 78 mg/dL (calc) <130 CMP - 02/26/19 14:14 GLUCOSE 198 mg/dL 65-139 UREA NITROGEN (BUN) 8 mg/dL 7-25 CREATININE 0.76 mg/dL 0.70-1.33 eGFR NON-AFR. MONEGASQUE 105 mL/min/1.73m2 > OR = 60 eGFR 122 mL/min/1.73m2 > OR = 60 BUN/CREATININE RATIO NOT APPLICABLE (calc) 6-22 SODIUM 141 mmol/L 135-146 POTASSIUM 4.3 mmol/L 3.5-5.3 CHLORIDE 108 mmol/L 98-110 CARBON DIOXIDE 25 mmol/L 20-32 CALCIUM 9.2 mg/dL 8.6-10.3 PROTEIN, TOTAL 6.7 g/dL 6.1-8.1 ALBUMIN 4.2 g/dL 3.6-5.1 GLOBULIN 2.5 g/dL (calc) 1.9-3.7 ALBUMIN/GLOBULIN RATIO 1.7 (calc) 1.0-2. 5 BILIRUBIN, TOTAL 0.4 mg/dL 0.2-1.2 ALKALINE PHOSPHATASE 64 U/L 40-115 AST 14 U/L 10-35 ALT 13 U/L 9-46 Complete blood count (CBC) with automate d white blood cell (WBC) differential - 03/03/19 11:25 Blood leukocytes automated count (number/volume) 8.7 10*3/uL 4.3-11.0 Blood erythrocytes automated count (number/volume) 4.68 10*6/uL 4.35-5.85 Venous blood hemoglobin measurement (mass/volume) 15.3 g/dL 13.3-17.7 Blood hematocrit (volume fraction) 45 % 40-54 Automated erythrocyte mean corpuscular volume 97 [ foz_us] 80-99 Automated erythrocyte mean corpuscular h emoglobin (mass per erythrocyte) 33 pg 25-34 Automated erythrocyte mean corpuscular h emoglobin concentration measurement (mass/volume) 34 g/dL 32-36 Automated erythrocyte distribution width ratio 12. 9 % 10.0- 14.5 Automated blood platelet count (count/volume) 217 10*3/uL 130-400 Automated blood platelet mean volume measurement 9.4 [foz_us] 7.4-10.4 Automated blood neutrophils/100 leukocytes 60 % 42-75 Automated blood lymphocytes/100 leukocytes 31 % 12-44 Blood monocytes/100 leukocytes 8 % 0-12 Automated blood eosinophils/100 leukocytes 1 % 0-10 Automated blood basophils/100 leukocytes 0 % 0-10 Blood neutrophils automated count (number/volume) 5.2 10*3 1.8-7.8 Blood lymphocytes automated count (number/volume) 2.7 10*3 1.0-4.0 Blood monocytes automated count (number/volume) 0. 7 10*3 0.0-1.0 Automated eosinophil count 0.1 10*3/uL 0 .0-0.3 Automated blood basophil count (count/volume) 0.0 10*3/uL 0.0-0.1 PT panel in platelet poor plasma by coag ulation assay - 03/03/19 11:25 Prothrombin time (PT) in platelet poor plasma by coagu lation assay 13.2 s 12.2-14.7 INR in platelet poor plasma or blood by coagulation as say 1.0 0.8-1.4 Activated partial thromboplastin time (a PTT) in platelet poor plasma bycoagulation assay - 03/03/19 11:25 Activated partial thromboplastin time (a PTT) in platelet poor plasma bycoagulation assay 37 s 24-35 Comprehensive metabolic panel - 03/03/19 11:25 Serum or plasma sodium measurement (moles/volume) 138 mmol/L 135-145 Serum or plasma potassium measurement (moles/volume) 4.3 mmol/L 3.6-5.0 Serum or plasma chloride measurement (moles/volume) 108 mmol/L 98-107 Carbon dioxide 17 mmol/L 21-32 Serum or plasma anion gap determination (moles/volume) 13 mmol/L 5-14 Serum or plasma urea nitrogen measurement (mass/volume ) 11 mg/dL 7-18 Serum or plasma creatinine measurement (mass/volume) 0.90 mg/dL 0.60-1.30 Serum or plasma urea nitrogen/creatinine mass ratio 12 NRG Serum or plasma creatinine measurement w ith calculation of estimated glomerular filtration rate > NRG Serum or plasma glucose measurement (mass/volume) 254 mg/dL 70-105 Serum or plasma calcium measurement (mass/volume) 9.5 mg/dL 8.5-10.1 Serum or plasma total bilirubin measurement (mass/volu me) 0.3 mg/dL 0.1-1.0 Serum or plasma alkaline phosphatase mel surement (enzymatic activity/volume) 77 U/L 40-136 Serum or plasma aspartate aminotransfera se measurement (enzymatic activity/volume) 20 U/L 5-34 Serum or plasma alanine aminotransferase measurement (enzymatic activity/volume) 15 U/L 0-55 Serum or plasma protein measurement (mass/volume) 7.3 g/dL 6.4-8.2 Serum or plasma albumin measurement (mass/volume) 4.2 g/dL 3.2-4.5 CALCIUM CORRECTED 9.3 mg/dL 8.5-10.1 Magnesium - 03/03/19 11:25 Magnesium 2.2 mg/dL 1.8-2.4 Serum or plasma troponin i.cardiac measu rement (mass/volume) - 03/03/19 11:25 Serum or plasma troponin i.cardiac measurement (mass/v olume) < ng/mL <0.028 Myoglobin, serum - 03/03/19 11:25 Myoglobin, serum 113.5 ng/mL 10.0-92.0 Serum or plasma lithium measurement (mol es/volume) - 03/03/19 11:25 BNP level 22.4 pg/mL <100.0 PROTEIN, TOTAL W/CREAT, RANDOM URINE - 0 07/05/19 11:21 CREATININE, RANDOM URINE 22 mg/dL 20-32 0 PROTEIN/CREATININE RATIO 818 mg/g creat 22-128 PROTEIN, TOTAL, RANDOM UR 18 mg/dL 5-25 Complete blood count (CBC) with automate d white blood cell (WBC) differential - 10/14/19 17:29 Blood leukocytes automated count (number/volume) 9.2 10*3/uL 4.3-11.0 Blood erythrocytes automated count (number/volume) 5.41 10*6/uL 4.35-5.85 Venous blood hemoglobin measurement (mass/volume) 17.2 g/dL 13.3-17.7 Blood hematocrit (volume fraction) 52 % 40-54 Automated erythrocyte mean corpuscular volume 97 [ foz_us] 80-99 Automated erythrocyte mean corpuscular h emoglobin (mass per erythrocyte) 32 pg 25-34 Automated erythrocyte mean corpuscular h emoglobin concentration measurement (mass/volume) 33 g/dL 32-36 Automated erythrocyte distribution width ratio 13. 5 % 10.0- 14.5 Automated blood platelet count (count/volume) 249 10*3/uL 130-400 Automated blood platelet mean volume measurement 9.1 [foz_us] 7.4-10.4 Automated blood neutrophils/100 leukocytes 59 % 42-75 Automated blood lymphocytes/100 leukocytes 28 % 12-44 Blood monocytes/100 leukocytes 11 % 0-12 Automated blood eosinophils/100 leukocytes 1 % 0-10 Automated blood basophils/100 leukocytes 0 % 0-10 Blood neutrophils automated count (number/volume) 5.4 10*3 1.8-7.8 Blood lymphocytes automated count (number/volume) 2.6 10*3 1.0-4.0 Blood monocytes automated count (number/volume) 1. 0 10*3 0.0-1.0 Automated eosinophil count 0.1 10*3/uL 0 .0-0.3 Automated blood basophil count (count/volume) 0.0 10*3/uL 0.0-0.1 Comprehensive metabolic panel - 10/14/19 17:29 Serum or plasma sodium measurement (moles/volume) 137 mmol/L 135-145 Serum or plasma potassium measurement (moles/volume) 3.9 mmol/L 3.6-5.0 Serum or plasma chloride measurement (moles/volume) 102 mmol/L 98-107 Carbon dioxide 22 mmol/L 21-32 Serum or plasma anion gap determination (moles/volume) 13 mmol/L 5-14 Serum or plasma urea nitrogen measurement (mass/volume ) 28 mg/dL 7-18 Serum or plasma creatinine measurement (mass/volume) 1.41 mg/dL 0.60-1.30 Serum or plasma urea nitrogen/creatinine mass ratio 20 NRG Serum or plasma creatinine measurement w ith calculation of estimated glomerular filtration rate 53 NRG Serum or plasma glucose measurement (mass/volume) 136 mg/dL 70-105 Serum or plasma calcium measurement (mass/volume) 9.3 mg/dL 8.5-10.1 Serum or plasma total bilirubin measurement (mass/volu me) 0.4 mg/dL 0.1-1.0 Serum or plasma alkaline phosphatase mel surement (enzymatic activity/volume) 59 U/L 40-136 Serum or plasma aspartate aminotransfera se measurement (enzymatic activity/volume) 14 U/L 5-34 Serum or plasma alanine aminotransferase measurement (enzymatic activity/volume) 16 U/L 0-55 Serum or plasma protein measurement (mass/volume) 7.7 g/dL 6.4-8.2 Serum or plasma albumin measurement (mass/volume) 4.4 g/dL 3.2-4.5 CALCIUM CORRECTED 9.0 mg/dL 8.5-10.1 Magnesium - 10/14/19 17:29 Magnesium 1.8 mg/dL 1.6-2.4 Serum or plasma troponin i.cardiac measu rement (mass/volume) - 10/14/19 17:29 Serum or plasma troponin i.cardiac measurement (mass/v olume) < ng/mL <0.028 PT panel in platelet poor plasma by coag ulation assay - 10/14/19 17:29 Prothrombin time (PT) in platelet poor plasma by coagu lation assay 13.5 s 12.2-14.7 INR in platelet poor plasma or blood by coagulation as say 1.0 0.8-1.4 Activated partial thromboplastin time (a PTT) in platelet poor plasma bycoagulation assay - 10/14/19 17:29 Activated partial thromboplastin time (a PTT) in platelet poor plasma bycoagulation assay 34 s 24-35 Serum or plasma lithium measurement (mol es/volume) - 10/14/19 17:29 BNP PT 13.9 pg/mL <100.0 Myoglobin, serum - 10/14/19 17:29 Myoglobin, serum 250.6 ng/mL 10.0-92.0 Serum or plasma C reactive protein measu rement (mass/volume) - 10/14/19 17:29 Serum or plasma C reactive protein measurement (mass/v olume) 2.44 mg/dL 0.00-0.50 Influenza virus A and B antigen detectio n - 10/14/19 17:40 FLU RESULT NEGATIVE FOR INFLUENZA A AND B ANTIGENS BY [facility] Complete blood count (CBC) with automate d white blood cell (WBC) differential - 10/16/19 00:57 Blood leukocytes automated count (number/volume) 10.7 10*3/uL 4.3-11.0 Blood erythrocytes automated count (number/volume) 5.06 10*6/uL 4.35-5.85 Venous blood hemoglobin measurement (mass/volume) 16.2 g/dL 13.3-17.7 Blood hematocrit (volume fraction) 49 % 40-54 Automated erythrocyte mean corpuscular volume 96 [ foz_us] 80-99 Automated erythrocyte mean corpuscular h emoglobin (mass per erythrocyte) 32 pg 25-34 Automated erythrocyte mean corpuscular h emoglobin concentration measurement (mass/volume) 33 g/dL 32-36 Automated erythrocyte distribution width ratio 13. 4 % 10.0- 14.5 Automated blood platelet count (count/volume) 228 10*3/uL 130-400 Automated blood platelet mean volume measurement 9.4 [foz_us] 7.4-10.4 Automated blood neutrophils/100 leukocytes 49 % 42-75 Automated blood lymphocytes/100 leukocytes 37 % 12-44 Blood monocytes/100 leukocytes 12 % 0-12 Automated blood eosinophils/100 leukocytes 2 % 0-10 Automated blood basophils/100 leukocytes 0 % 0-10 Blood neutrophils automated count (number/volume) 5.3 10*3 1.8-7.8 Blood lymphocytes automated count (number/volume) 3.9 10*3 1.0-4.0 Blood monocytes automated count (number/volume) 1. 3 10*3 0.0-1.0 Automated eosinophil count 0.2 10*3/uL 0 .0-0.3 Automated blood basophil count (count/volume) 0.0 10*3/uL 0.0-0.1 Comprehensive metabolic panel - 10/16/19 00:57 Serum or plasma sodium measurement (moles/volume) 139 mmol/L 135-145 Serum or plasma potassium measurement (moles/volume) 3.7 mmol/L 3.6-5.0 Serum or plasma chloride measurement (moles/volume) 109 mmol/L 98-107 Carbon dioxide 16 mmol/L 21-32 Serum or plasma anion gap determination (moles/volume) 14 mmol/L 5-14 Serum or plasma urea nitrogen measurement (mass/volume ) 12 mg/dL 7-18 Serum or plasma creatinine measurement (mass/volume) 0.93 mg/dL 0.60-1.30 Serum or plasma urea nitrogen/creatinine mass ratio 13 NRG Serum or plasma creatinine measurement w ith calculation of estimated glomerular filtration rate > NRG Serum or plasma glucose measurement (mass/volume) 121 mg/dL 70-105 Serum or plasma calcium measurement (mass/volume) 9.3 mg/dL 8.5-10.1 Serum or plasma total bilirubin measurement (mass/volu me) 0.2 mg/dL 0.1-1.0 Serum or plasma alkaline phosphatase mel surement (enzymatic activity/volume) 81 U/L 40-136 Serum or plasma aspartate aminotransfera se measurement (enzymatic activity/volume) 23 U/L 5-34 Serum or plasma alanine aminotransferase measurement (enzymatic activity/volume) 20 U/L 0-55 Serum or plasma protein measurement (mass/volume) 7.2 g/dL 6.4-8.2 Serum or plasma albumin measurement (mass/volume) 4.3 g/dL 3.2-4.5 CALCIUM CORRECTED 9.1 mg/dL 8.5-10.1 Magnesium - 10/16/19 00:57 Magnesium 1.6 mg/dL 1.6-2.4 Serum or plasma troponin i.cardiac measu rement (mass/volume) - 10/16/19 00:57 Serum or plasma troponin i.cardiac measurement (mass/v olume) < ng/mL <0.028 Myoglobin, serum - 10/16/19 00:57 Myoglobin, serum 83.7 ng/mL 10.0-92.0 PT panel in platelet poor plasma by coag ulation assay - 10/16/19 00:57 Prothrombin time (PT) in platelet poor plasma by coagu lation assay 12.9 s 12.2-14.7 INR in platelet poor plasma or blood by coagulation as say 0.9 0.8-1.4 Activated partial thromboplastin time (a PTT) in platelet poor plasma bycoagulation assay - 10/16/19 00:57 Activated partial thromboplastin time (a PTT) in platelet poor plasma bycoagulation assay 34 s 24-35 Serum or plasma thyrotropin measurement by detection limit <=0.05 miu/l (units/volume) - 10/16/19 00:57 Serum or plasma thyrotropin measurement by detection limit <=0.05 miu/l (units/volume) 1.74 u[iU]/mL 0.35-4.94 MICROALBUMIN/CREATININE RATIO, URINE - 0 11/03/19 09:36 CREATININE, RANDOM URINE 47 mg/dL 20-32 0 MICROALBUMIN 15.5 mg/dL See Note: MICROALBUMIN/CREATININE RATIO, RANDOM URINE 330 mcg/mg creat <30 Complete urinalysis with reflex to cultu re - 04/26/20 11:05 Urine color determination YELLOW NRG Urine clarity determination CLEAR NR G Urine pH measurement by test strip 5.5 5-9 Specific gravity of urine by test strip <= 1.016-1.022 Urine protein assay by test strip, semi-quantitative TRACE NEGATIVE Urine glucose detection by automated test strip 3+ NEGATIVE Erythrocytes detection in urine sediment by light micr oscopy NEGATIVE NEGATIVE Urine ketones detection by automated test strip NE GATIVE NEGATIVE Urine nitrite detection by test strip NEGATIVE NEGATIVE Urine total bilirubin detection by test strip NEGA TIVE NEGATIVE Urine urobilinogen measurement by automated test strip (mass/volume) 0.2 mg/dL < = 1.0 Urine leukocyte esterase detection by dipstick NEG ATIVE NEGATIVE Automated urine sediment erythrocyte cou nt by microscopy (number/high power field) NONE NRG Automated urine sediment leukocyte count by microscopy (number/high power field) NONE NRG Bacteria detection in urine sediment by light microsco py NEGATIVE NRG Squamous epithelial cells detection in u rine sediment by light microscopy RARE NRG Crystals detection in urine sediment by light microsco py NONE NRG Casts detection in urine sediment by light microscopy NONE NRG Mucus detection in urine sediment by light microscopy NEGATIVE NRG Complete urinalysis with reflex to culture NO NRG Encounters ACCT No. Visit Date/Time Discharge Status Pt. Type Provider Facility Loc./Unit Complaint [id number] 01/03/2020 14:00:00 01/03/2020 23:59: 59 CLS Outpatient INDIRA VEE, ESTRELLITA Ole[facility] [address] [place] [id number] 11/03/2019 08:20:00 Document Registration [id number] 07/05/2019 08:40:00 Document Registration [id number] 02/26/2019 13:40:00 Document Registration [id number] 12/16/2018 08:40:00 Document Registration [id number] 09/09/2018 09:00:00 Document Registration [id number] 06/25/2018 08:00:00 Document Registration [id number] 02/09/2018 10:30:00 Document Registration [id number] 07/22/2017 08:00:00 Document Registration [id number] 03/29/2020 08:00:00 08:43:00 DIS Outpatient HAMMAD PYLE MD [facility] CATH A. FLUTTER,PALPITATIONS ,CAD [id number] 11/15/2019 09:30:00 00:01:00 DIS Outpatient CHANDLER NATION [facility] CARD CAD,COPD,DI ABETES MELLITUS,HYPERLIPIDEMIA [id number] 12/29/2019 09:30:00 23:59:59 CLS Preadmit HAMMAD PYLE MD [facility] CATH A FLUTTER,PALPITATIONS, CAD [id number] 10/16/2019 00:45:00 04:01:00 DIS Emergency CHETAN MORALES MD [facility] ER HEART PALPITATI ONS [id number] 10/14/2019 16:44:00 19:09:00 DIS Emergency CHETAN MORALES MD [facility] ER HEART RACING [id number] 03/10/2019 07:45:00 23:59:59 CLS Preadmit HAMMAD PYLE MD [facility] CARD CLAUDICATION, CAD, DM [id number] 03/03/2019 13:41:00 18:41:00 DIS Outpatient HAMMAD PYLE MD [facility] CATH CHEST PAIN [id number] 02/26/2019 12:49:00 23:59:59 CLS Outpatient HAMMAD PYLE MD [facility] CARD CLAUDICATION, CAD, DM [id number] 03/13/2018 21:43:00 14:10:00 DIS Inpatient NEGRO FALLON MD [facility] ICU ARF,SVT,CAD [id number] 01/21/2018 11:13:00 018 15:35:00 DIS Outpatient PAMELA LOPEZ DO [facility] ENDO RECTAL BLEEDING [id number] 01/19/2018 05:55:00 018 12:12:00 DIS Outpatient PAMELA LOPEZ DO [facility] PREOP COLONOSCOPY [id number] 01/14/2018 08:00:00 018 23:59:59 CLS Outpatient ESTRELLITA JACOBSON MD [facility] RAD R29.898 WEAKNESS OF LEF T LOWER EXTREMITY [id number] 08/06/2017 10:38:00 017 17:30:00 DIS Outpatient HAMMAD PYLE MD [facility] CATH ABN STRESS TEST,CP,TOBACCOISM,HLPCAD,PVD [id number] 07/30/2017 12:01:00 017 23:59:59 CLS Outpatient HAMMAD PYLE MD [facility] CARD I25.10 [id number] 06/04/2017 06:50:00 017 10:30:00 DIS Outpatient HAMMAD PYLE MD [facility] CATH PAD,CAD,HTN [id number] 05/31/2017 07:28:00 017 14:15:00 DIS Inpatient ESTRELLITA JACOBSON MD [facility] ICU ATRIAL TACHYCARDIA W/RV R,CHEST PAIN [id number] 01/18/2017 21:30:00 017 23:21:00 DIS Emergency KELSEYROSALINO CHAIN SPLITTER [facility] ER SORES ON R ARM/HAND SPI CASSANDRA BITE [id number] 10/07/2016 14:15:00 016 23:59:59 CLS Outpatient FELECIA HOLLOWAY CFNANDO [facility] RAD ENLARGED TESTIC LE [id number] 04/26/2020 11:25:00 Document Registration
== END | disposition home or self-care (01) ==
LOC: CATH 10:56
PROVIDERS: ATTEND Internal Medicine Cardiovascular Disease
DX: I48.0 Paroxysmal atrial fibrillation (principal); I25.10 Atherosclerotic heart disease of native coronary artery without angina pectoris; R00.2 Palpitations; I73.9 Peripheral vascular disease, unspecified; E78.2 Mixed hyperlipidemia; I10 Essential (primary) hypertension; I47.1 Supraventricular tachycardia; E11.9 Type 2 diabetes mellitus without complications; Z79.84 Long term (current) use of oral hypoglycemic drugs; J44.9 Chronic obstructive pulmonary disease, unspecified; I25.2 Old myocardial infarction; F17.210 Nicotine dependence, cigarettes, uncomplicated; Z82.49 Family history of ischemic heart disease and other diseases of the circulatory system
CPT/HCPCS: 81000

== ENCOUNTER → 2020-08-28 | Outpatient (CLI) | payer MEDICAID ==
[~2020-08-28] MED LIST changes: +ASPI-1238 PO; -ASPI-983 PO; -LIDOCAINE 1% INJ 20 ML 20 ML VIAL INJ ONE; -LIDOCAINE 1% INJ 20 ML 20 ML VIAL ONE
[2020-08-28 16:17] LABS: BUN/CREATININE RATIO 15; CALCIUM 9.4 MG/DL (8.5-10.1); CARBON DIOXIDE 20 MMOL/L (21-32); CHLORIDE 109 MMOL/L (98-107); CREATININE SERUM 0.89 MG/DL (0.60-1.30); GFR ESTIMATED > 60; GLUCOSE 124 MG/DL (70-105); POTASSIUM 4.1 MMOL/L (3.6-5.0); SODIUM 141 MMOL/L (135-145)
[2020-08-28 16:21] LABS: BILIRUBIN,URINE NEGATIVE (NEGATIVE); CLARITY,URINE CLEAR; COLOR,URINE YELLOW; GLUCOSE, URINE (UA) 3+ (NEGATIVE); KETONES,URINE NEGATIVE (NEGATIVE); LEUKOCYTE ESTERASE ,URINE NEGATIVE (NEGATIVE); NITRITE,URINE NEGATIVE (NEGATIVE); PH,URINE 5.5 (5-9); PROTEIN,URINE 1+ (NEGATIVE)
[2020-08-28 16:40] LABS: BACTERIA,URINE NEGATIVE /HPF; RBC,URINE 0-2 /HPF
[2020-08-28 16:41] LABS: AMORPHOUS SEDIMENT,UR RARE AMOR URATES /LPF
== END ==
LOC: LAB 15:39
PROVIDERS: ATTEND Urology
DX: N40.1 Benign prostatic hyperplasia with lower urinary tract symptoms (principal); E29.1 Testicular hypofunction
CPT/HCPCS: 36415; 80048; 81000; 84153; 84403

== ENCOUNTER → 2020-09-01 | Outpatient (CLI) | payer MEDICAID ==
--- NOTE | 2020-09-01 10:04 | Diagnostic Imaging Report ---
PROCEDURE: US Scrotum. TECHNIQUE: Multiple real-time grayscale images were obtained over the scrotum in various projections bilaterally. INDICATION: Swelling of left scrotum. FINDINGS: Right testicle measures 4.4 x 2.2 x 3.2 cm. Left testicle measures 4 x 2.2 x 3 cm. Both testicles are homogeneous with normal blood flow. There is noted large hydrocele on the left. No hydrocele on the right. The epididymides appear normal. There is no varicoceles with color Doppler sampling. IMPRESSION: 1. Large hydrocele noted on the left. 2. Testes appear normal. Dictated by: Dictated on workstation # [id number]
== END ==
LOC: RAD 09:00
PROVIDERS: ATTEND Urology
DX: N43.3 Hydrocele, unspecified (principal)
CPT/HCPCS: 76870

== ENCOUNTER 2020-09-22 05:34 | Outpatient (RCR) | payer MEDICAID ==
[~2020-09-22] VITALS: Ht 167 cm; Wt 86.3 kg
[~2020-09-22 05:34] MED LIST changes: +ASPI-999 PO; +CANA100T PO; -CLIN300C11 PO; +CLIN300C12 PO; +LEG CRAMPS PO; +MELO15TA39 PO; +METF-865 PO; +ROSU20TA32 PO; +TMSL.4C PO
== END 2020-09-22 10:06 | disposition home or self-care (01) ==
LOC: PREOP 05:34
PROVIDERS: ATTEND Urology
DX: Z01.812 Encounter for preprocedural laboratory examination (principal); N43.3 Hydrocele, unspecified; Z20.828 Contact with and (suspected) exposure to other viral communicable diseases
CPT/HCPCS: 87635

== ENCOUNTER 2020-09-26 06:22 | Day surgery (SDC) | payer MEDICAID ==
[2020-09-26] VITALS (10 sets, daily range): BP systolic 119–161; BP diastolic 72–91
[~2020-09-26] VITALS: Ht 167 cm; Wt 86.3 kg
[2020-09-26] MEDS ORDERED: LACTATED RINGERS 1,000 ML IV PRN (06:45)
[2020-09-26] MEDS ORDERED: ceFAZolin INJECTION 1,000 MG in WATER (STERILE) FOR INJECTION 10 ML IV ONE (06:45)
--- NOTE | 2020-09-26 07:05 | Progress Note-Pre Operative ---
Pre-Operative Progress Note H&P Reviewed The H&P was reviewed, patient examined and no changes noted. Date Seen by Provider: Sep 26, 2020 Time Seen by Provider: 07:05 Date H&P Reviewed: Sep 26, 2020 Time H&P Reviewed: 07:05 Pre-Operative Diagnosis: LT HYDROCELE BRYON SMILEY MD Sep 26, 2020 07:05
--- NOTE | 2020-09-26 07:12 | Progress Note-Post Operative ---
Post-Operative Progess Note Surgeon (s)/Can Dryer (s) Surgeon BRYON SMILEY MD Can Dryer: NONE Pre-Operative Diagnosis LT HYDROCELE Post-Operative Diagnosis SAME Procedure & Operative Findings Date of Procedure 09/26/20 Procedure Performed/Findings LT HYDROCELECTOMY Anesthesia Type GENERAL Estimated Blood Loss Estimated blood loss (mL): NEGLIGIBLE Specimens/Packing Specimens Removed NONE Packing: AVE DRAIN BRYON SMILEY MD Sep 26, 2020 07:12
[2020-09-26] MEDS ORDERED: ONDANSETRON 4 MG/2 ML (SDV) Z0FRAN ONE (07:13)
[2020-09-26] MEDS ORDERED: LIDOCAINE PF 2% 5 ML (XYLOCAINE) VIAL ONE (07:13)
[2020-09-26] MEDS ORDERED: proPOfol 200 MG/20 ML (DIPRIVAN) VIAL IV ONE (07:13)
[2020-09-26] MEDS ORDERED: SEVOFLURANE (ULTANE) 15 ML INHAL SOLN ONE ×3 (07:14→08:29)
[2020-09-26] MEDS ORDERED: MIDAZOLAM 2 MG/2 ML (VERSED) VIAL ONE (07:14)
[2020-09-26] MEDS ORDERED: fentaNYL INJECTION 100 MCG/2 ML AMP ONE (07:14)
--- NOTE | 2020-09-26 07:14 | Discharge Inst-Urology ---
Discharge Inst-Urology Reconcile Patient Problems Problems Reviewed?: Yes Final Diagnosis LT HYDROCELE Patient Instructions/Follow Up Plan/Assessment/Instructions Please make appointment to been seen in office in 2 weeks. Rest till then and no ASA Ice to scrotum in RR and at home for 6 hours and then PRN Scrotal support for 2 weeks Come to office tomorrow 9 am to DC drain, may shower after that no baths Keep bowels soft and moving Increase oral fluids for 48 hours and then as needed. Diet as tolerated. If questions or concerns contact your physician Or seek help at emergency department. BRYON SMILEY MD Sep 26, 2020 07:14
[2020-09-26] MEDS ORDERED: ONDANSETRON 4 MG/2 ML (SDV) Z0FRAN IVP PRN (08:15)
[2020-09-26] MEDS ORDERED: morphine INJ 10 MG/ML 1ML (SYR OR VIAL) IVP ONE (08:15)
[2020-09-26] MEDS ORDERED: fentaNYL INJECTION 100 MCG/2 ML AMP IVP ONE (08:15)
[2020-09-26] MEDS ORDERED: MEPERIDINE (DEMEROL) INJ 50 MG/ML IVP ONE (08:15)
--- NOTE | 2020-09-26 09:31 | Anesthesia-General Post-Op ---
General Patient Condition Mental Status/LOC: Same as Preop Cardiovascular: Satisfactory Nausea/Vomiting: Absent Respiratory: Satisfactory Pain: Controlled Complications: Absent Post Op Complications Complications None Follow Up Care/Instructions Patient Instructions None needed. Anesthesia/Patient Condition Patient Condition Patient is doing well, no complaints, stable vital signs, no apparent adverse anesthesia problems. No complications reported per nursing. SHUBHAM LOUIS CRNA Sep 26, 2020 09:31
--- NOTE | 2020-09-26 12:17 | OPERATIVE REPORT ---
DATE OF SERVICE: 09/26/2020 PREOPERATIVE DIAGNOSIS: Large left hydrocele. POSTOPERATIVE DIAGNOSIS: Large left hydrocele. OPERATION PERFORMED: Left hydrocelectomy. SURGEON: Miguel Angel Smiley MD ANESTHESIA: General. COMPLICATIONS: None. DESCRIPTION OF PROCEDURE: Under satisfactory general anesthesia, the patient in supine position, genitalia, abdomen and thigh were prepped and draped in the usual sterile fashion. Incision was made in the medial raphae, carried through the left scrotal compartment. Large amount of hydrocele fluid was suctioned. The testicle was delivered in the wound. There was noted to be pretty small in size. The epididymis also was kind of atrophic and kind of detached from the testicle being stuck to the hydrocele sac. I went ahead and everted the sac behind the spermatic cord and sutured with three interrupted 3-0 chromic catgut. Then, I attached the epididymis to the tunica albuginea of the testicle with two interrupted 3-0 chromic catgut. Hemostasis was complete. The testicle was replaced in the scrotal compartment and was drained with a [place] drain brought through a separate stab wound at the bottom of the scrotum and sutured in position with a 3-0 chromic catgut. Closure was performed in layer, the dartos with a running 3-0 chromic catgut suture and the skin was interrupted 4-0 Vicryl. Telfa, fluffs and scrotal support was applied. Estimated blood loss was negligible. Needle, sponge, instrument count correct x2. The patient tolerated the procedure and anesthesia well and was sent to recovery room in stable condition. Job ID: [id number] DocumentID: [id number] Dictated Date: 09/26/2020 08:43:36 Door Assembler Date: 09/26/2020 12:16:56 Dictated By: MIGUEL ANGEL SMILEY MD
== END 2020-09-26 10:40 | disposition home or self-care (01) ==
LOC: SDC 06:22
PROVIDERS: ATTEND Urology
DX: N43.3 Hydrocele, unspecified (principal); I10 Essential (primary) hypertension; I25.119 Atherosclerotic heart disease of native coronary artery with unspecified angina pectoris; E11.51 Type 2 diabetes mellitus with diabetic peripheral angiopathy without gangrene; E11.40 Type 2 diabetes mellitus with diabetic neuropathy, unspecified; G47.33 Obstructive sleep apnea (adult) (pediatric); J44.9 Chronic obstructive pulmonary disease, unspecified; K21.9 Gastro-esophageal reflux disease without esophagitis; Z79.84 Long term (current) use of oral hypoglycemic drugs; Z79.899 Other long term (current) drug therapy; Z88.0 Allergy status to penicillin; Z88.8 Allergy status to other drugs, medicaments and biological substances
CPT/HCPCS: 82962; 87081

== ENCOUNTER → 2021-01-03 | Outpatient (CLI) | payer MEDICAID ==
[~2021-01-03] VITALS: Ht 167 cm; Wt 85.0 kg
[~2021-01-03] MED LIST changes: +CATHETER FLUSH 10 ML SYR IV PRN; -LISI10TA2 PO; +LISI10TA25 PO; +REGADENOSON 0.4 MG/5 ML SYR (LEXISCAN) IV ONE
[2021-01-03 10:48] LABS: ALANINE AMINOTRANSFERASE 27 U/L (0-55); ALBUMIN 4.3 GM/DL (3.2-4.5); ALKALINE PHOSPHATASE 81 U/L (40-136); BILIRUBIN,TOTAL 0.3 MG/DL (0.1-1.0); BUN/CREATININE RATIO 20; CALCIUM 9.4 MG/DL (8.5-10.1); CARBON DIOXIDE 18 MMOL/L (21-32); CHLORIDE 112 MMOL/L (98-107); CHOLESTEROL 151 MG/DL (< 200); CREATININE SERUM 0.92 MG/DL (0.60-1.30); GFR ESTIMATED > 60; GLUCOSE 159 MG/DL (70-105); HDL CHOLESTEROL 29 MG/DL (40-60); POTASSIUM 4.6 MMOL/L (3.6-5.0); SODIUM 140 MMOL/L (135-145); TOTAL PROTEIN 7.6 GM/DL (6.4-8.2); TRIGLYCERIDES 424 MG/DL (<150); VLDL CHOLESTEROL 85 MG/DL (5-40)
[2021-01-03 12:52] VITALS: BP 151/89
--- NOTE | 2021-01-03 15:09 | Cardiology Stress Test Report ---
Stress Test Report Date of Procedure/Referring: Date of Procedure: Jan 03, 2021 Elle West Admitting Physician Janay Lancaster MD Indications: CAD Baseline Heart Rate: 83 Baseline Blood Pressure: Blood Pressure Systolic: 151 Blood Pressure Diastolic: 89 Baseline Vitals Vital Signs Date Time Temp Pulse Resp B/P (MAP) Pulse Ox O2 Delivery O2 Flow Rate FiO2 01/03/21 12:52 83 16 151/89 (109) 96 Room Air Baseline EKG: Baseline EKG: NSR Summary After explaining the procedure to the patient, he signed a consent and then brought to the stress nuclear laboratory. Patient received 0.4 mg Lexiscan for stress test, ECG, heart rate and blood pressure were monitored continuously. Resting and stress dose of radio tracer were injected, imaging was acquired and reviewed in short axis, horizontal long axis and vertical long axis views. TID: 1.05 SSS: 4 SDS: 3 EF: 38 1. Patient tolerated lexiscan well 2. Diaphragmatic attenuation with reversible ischemia involving the wall and inferolateral wall 3. Prominent left ventricle with hypokinesia of the inferior wall, ejection fraction 38 percent HAMMAD PYLE MD Jan 03, 2021 15:09
== END ==
LOC: CARD 10:14
PROVIDERS: ATTEND Physician Assistant
DX: I25.10 Atherosclerotic heart disease of native coronary artery without angina pectoris (principal); E78.2 Mixed hyperlipidemia
CPT/HCPCS: 78452; 80053; 80061; 93017; 93306; A9502; 36415

== ENCOUNTER 2021-01-17 10:00 | Day surgery (SDC) | payer MEDICAID ==
[~2021-01-17] VITALS: Ht 167 cm; Wt 90.0 kg
[2021-01-17] VITALS (10 sets, daily range): BP systolic 132–164; BP diastolic 77–89
[2021-01-17 08:20] LABS: HEMOGLOBIN 16.7 g/dL (13.3-17.7); MEAN PLATELET VOLUME 9.4 fL (9.0-12.2); WHITE BLOOD COUNT 10.7 10^3/uL (4.3-11.0)
[2021-01-17 08:21] LABS: BILIRUBIN,URINE NEGATIVE (NEGATIVE); CLARITY,URINE CLEAR; COLOR,URINE YELLOW; GLUCOSE, URINE (UA) 3+ (NEGATIVE); KETONES,URINE NEGATIVE (NEGATIVE); LEUKOCYTE ESTERASE ,URINE NEGATIVE (NEGATIVE); NITRITE,URINE NEGATIVE (NEGATIVE); PROTEIN,URINE 2+ (NEGATIVE)
[2021-01-17 08:31] LABS: BACTERIA,URINE NEGATIVE /HPF; SQUAMOUS EPITHELIAL CELL,UR RARE /HPF
[2021-01-17 08:38] LABS: INR 0.9 (0.8-1.4); PROTHROMBIN TIME PATIENT 12.8 SEC (12.2-14.7)
[2021-01-17 08:44] LABS: ALANINE AMINOTRANSFERASE 26 U/L (0-55); ALBUMIN 4.6 GM/DL (3.2-4.5); ALKALINE PHOSPHATASE 89 U/L (40-136); BILIRUBIN,TOTAL 0.3 MG/DL (0.1-1.0); BUN/CREATININE RATIO 15; CALCIUM 9.3 MG/DL (8.5-10.1); CARBON DIOXIDE 22 MMOL/L (21-32); CHLORIDE 110 MMOL/L (98-107); CHOLESTEROL 160 MG/DL (< 200); CREATININE SERUM 0.86 MG/DL (0.60-1.30); GFR ESTIMATED > 60; GLUCOSE 148 MG/DL (70-105); HDL CHOLESTEROL 33 MG/DL (40-60); POTASSIUM 4.2 MMOL/L (3.6-5.0); SODIUM 141 MMOL/L (135-145); TOTAL PROTEIN 8.1 GM/DL (6.4-8.2); TRIGLYCERIDES 326 MG/DL (<150); VLDL CHOLESTEROL 65 MG/DL (5-40)
--- NOTE | 2021-01-17 09:18 | Diagnostic Imaging Report ---
INDICATION: Shortness of breath COMPARISON: 10/16/2019 FINDINGS: Single view chest demonstrates stable cardiac enlargement. There is a loop recorder overlying the left heart border. There is no pneumothorax or effusion. No infiltrate seen. IMPRESSION: Stable cardiac enlargement without pulmonary edema or acute infiltrate. Dictated by: Dictated on workstation # [id number]
--- NOTE | 2021-01-17 09:37 | Cardiac Procedure Note-CS/ASA ---
Pre-Procedure Note Pre-Op Procedure Note H&P Reviewed The H&P was reviewed, patient examined and no changes noted. Date H&P Reviewed: Jan 17, 2021 Time H&P Reviewed: 09:36 Conscious Sedation Pre-Proced Time 09:37 ASA Score 3 For ASA 3 and 4: Consider anesthesia and medical clearance. Also, for patients with a history of failed moderate sedation consider anesthesia. Airway Lungs Heart ASA score ASA 1: a normal healthy patient ASA 2: a patient with a mild systemic disease (mid diabetes, controlled hypertension, obesity x ASA 3: a patient with a severe systemic disease that limits activity (angina, COPD, prior Myocardial infarction) ASA 4: a patient with an incapacitating disease that is a constant threat to life (CHF, renal failure) ASA 5: a moribund patient not expected to survive 24 hrs. (ruptured aneurysm) ASA 6: a declared brain- patient whose organs are being harvested. For emergent operations, add the letter E after the classification Mallampati Classification Grade 3 Sedation Plan Analgesia, Amnesia, Plan communicated to team members, Discussed options with patient/fam, Discussed risks with patient/fam The patient is an appropriate candidate to undergo the planned procedure, sedation, and anesthesia. The patient immediately re-assessed prior to indication. HAMMAD PYLE MD Jan 17, 2021 9:37 am
--- NOTE | 2021-01-17 09:40 | Discharge Inst-Post CATH ---
Discharge Inst-CATH/EP Problems Reviewed?: Yes Post Cardiac Cath/EP D/C Inst Follow Up/Plan Hold Metformin for [address] Zendejas's office in 2 to 4 weeks <b>CARDIAC CATH/EP PROCEDURE DISCHARGE INSTRUCTIONS</b> ACTIVITY * Go Home directly and rest. * Limit activity of the leg (or wrist if it was used) for 7 days including aerobics, swimming, jogging, bicycling, etc. * Restrict stair-climbing for 7 days if possible, if not, climb up with your non-cath leg, then bring together on the same step. * Avoid lifting, pushing, pulling or excessive movement of the affected extremity for 7 days. * Customary sexual activity may be resumed after 2 days-use caution not to use a position that strains or causes pain to the affected extremity. * No driving for 24 hours. * NO SMOKING. * Avoid straining for bowel movements for 7 days. * Gentle walking on level ground is allowed. * Returning to work will depend on the type of procedure and the results. Your doctor will discuss this with you. CALL YOUR DOCTOR FOR ANY OF THE FOLLOWING: *If bleeding from the puncture site occurs- Apply gentle pressure to site with clean cloth and call your doctor or EMS. * If a knot or lump forms under the skin, increases in size, or causes pain. * If bruising appears to be worsening or moving further down your leg instead of disappearing. * Temperature above 101 F. CARE OF YOUR GROIN INCISION; * Bruising or purple discoloration of the skin near the puncture site is common. * You may shower only, no bathtub bathing for 5 days. Be careful to avoid slipping as your leg may feel stiff. * If a closure device was used on your femoral artery, please see the attached guide regarding care of the device and your leg. * Leave dressing on FOR 24 hours. CARE OF YOUR WRIST INCISION; * Bruising or purple discoloration of the skin near the puncture site is common. * You may shower. * DO NOT submerge wrist. * Leave dressing on FOR 24 hours. HAMMAD ZENDEJAS MD Jan 17, 2021 9:39 am
--- NOTE | 2021-01-17 09:43 | Cardiac Cath Report ---
Cardiac Cath Report Physician (s)/Bobbin Trucker (s) Physician HAMMAD PYLE MD Pre-Procedure Diagnosis Pre-Procedure Diagnosis: Coronary artery disease Post-Procedure Note Procedure Start Date: Jan 17, 2021 Name of Procedure: Left heart catheterization Findings/Procedure Note PROCEDURE NOTE: 55 years old gentleman with history of coronary artery disease 3 stents to the right coronary artery, had an abnormal stress test, scheduled for cardiac catheterization possible PTCA. After explaining the procedure to the patient, all pros and cons were explained, all questions were answered. The patient signed the consent and then he was placed on the cardiac catheterization laboratory. Groin was prepped SL fashion local anesthesia was used. Sheath placed in the right radial artery, [place] catheter was advanced to the left ventricular cavity, pressure was measured, no left ventriculogram was done, pullback LV to aorta was done, intubated the left coronary system and angiogram was done then turned to the right coronary system and angiogram was done. At the end of the procedure the sheath was removed. Vascular band was used FINDINGS: Hemodynamics LV 109/12, end-diastolic pressure of 12 Aorta 115/71 mean of 71 ANATOMY: Left Main is free of obstructive disease Left Anterior Descending is slightly tortuous with mild disease no obstructive disease Left Circumflex has mild disease nonobstructive disease Right Coronory Artery has patent stent, large dominant artery with no obstructive disease LV Gram was not done, pressure was measured CONCLUSION: 1. Patent stents in the right coronary artery with no significant obstructive disease 2. Normal left ventricular end-diastolic pressure DISCUSSION AND RECOMMENDATION: Medical therapy is recommended no intervention is needed Anesthesia Type: Conscious Sedation Estimated blood loss (mL): 10 ml Contrast Amount: 32 ml Total Radiation Dose: 318 mGy Post-Procedure Diagnosis Post-operative diagnosis: Chest pain Coronary artery disease Hypertension Hyperlipidemia HAMMAD PYLE MD Jan 17, 2021 9:42 am
[~2021-01-17 10:00] MED LIST changes: +BUDE10.2 IH; -CATHETER FLUSH 10 ML SYR IV PRN; +CETI10TA17 PO; +DILT240C91 PO; +DIPH25TA31 PO; +FLUT9.9S NSEACH; +HEParin (CATH LAB) 2,000 ML IV ONE; +HEParin 1000 UNIT/ML (10ML VIAL) FOR BOLUS ONE; +IBUP-2473 PO; +INSU100I10 SQ; +LIDOCAINE 1% INJ 20 ML 20 ML VIAL ONE; +MIDAZOLAM 5 MG/5 ML (VERSED) VIAL ONE; +NITRO DRIP 25000 MCG/D5W 250 ML IV ONE; +NS IV 1000 ML 1,000 ML IV SCH; +NS IV 1000 ML 1,000 ML ONE; -REGADENOSON 0.4 MG/5 ML SYR (LEXISCAN) IV ONE; +TERB250T16 PO; +VERAPAMIL 5 MG/2 ML (CALAN) VIAL IV ONE; +fentaNYL INJ 100 MCG/2 ML AMP ONE
== END 2021-01-17 12:15 ==
LOC: SDC 10:00 → CATH 10:00
PROVIDERS: ATTEND Internal Medicine Cardiovascular Disease
DX: I25.10 Atherosclerotic heart disease of native coronary artery without angina pectoris (principal); I10 Essential (primary) hypertension; E78.2 Mixed hyperlipidemia; J44.9 Chronic obstructive pulmonary disease, unspecified; Z86.010 Personal history of colon polyps; I65.23 Occlusion and stenosis of bilateral carotid arteries; E11.40 Type 2 diabetes mellitus with diabetic neuropathy, unspecified; E11.51 Type 2 diabetes mellitus with diabetic peripheral angiopathy without gangrene; F17.210 Nicotine dependence, cigarettes, uncomplicated; E66.9 Obesity, unspecified; Z68.32 Body mass index [BMI] 32.0-32.9, adult; Z79.899 Other long term (current) drug therapy; Z79.82 Long term (current) use of aspirin; Z79.51 Long term (current) use of inhaled steroids; Z79.84 Long term (current) use of oral hypoglycemic drugs; Z88.8 Allergy status to other drugs, medicaments and biological substances; Z88.0 Allergy status to penicillin; Z85.038 Personal history of other malignant neoplasm of large intestine
CPT/HCPCS: 71045; 80053; 80061; 81000; 85027; 85610; 85730; 87081; 93458; C1894; 36415

== ENCOUNTER 2022-09-25 09:00 | Day surgery (SDC) | payer MEDICAID ==
[~2022-09-25] VITALS: Ht 167.6 cm; Wt 91.6 kg
[2022-09-25] VITALS (9 sets, daily range): BP systolic 129–155; BP diastolic 72–91
--- NOTE | 2022-09-25 07:41 | Diagnostic Imaging Report ---
Clinical indications: Patient with precatheterization exam. Patient with chest pain, coronary artery disease and dyspnea. EXAM: Portable chest x-ray upright view. COMPARISON: Chest x-ray dated 01/17/2021 FINDINGS: Lungs/pleura: Lungs are clear. There is no pneumothorax. There is no pleural effusion. Mediastinum: Unremarkable. Pulmonary vasculature: Unremarkable. Heart: There is mild cardiomegaly. Loop recorder is again seen overlying the left chest. Bones/extrathoracic soft tissue: There are hypertrophic spurs involving the thoracic spine. IMPRESSION: 1: There is no interval radiographic evidence of acute cardiopulmonary process. 2: Stable mild cardiomegaly with no significant pulmonary vascular congestion. Dictated by: Dictated on workstation # [id number]
[2022-09-25 07:44] LABS: HEMATOCRIT 51 % (40-54); HEMOGLOBIN 16.2 g/dL (13.3-17.7); MEAN CORPUSCULAR HEMOGLOBIN 33 pg (25-34); MEAN CORPUSCULAR HGB CONC 32 g/dL (32-36); MEAN CORPUSCULAR VOLUME 101 fL (80-99); MEAN PLATELET VOLUME 9.6 fL (9.0-12.2); PLATELET COUNT 231 10^3/uL (130-400); WHITE BLOOD COUNT 10.5 10^3/uL (4.3-11.0)
[2022-09-25 07:45] LABS: BILIRUBIN,URINE NEGATIVE (NEGATIVE); CLARITY,URINE CLEAR; COLOR,URINE YELLOW; GLUCOSE, URINE (UA) 3+ (NEGATIVE); KETONES,URINE NEGATIVE (NEGATIVE); LEUKOCYTE ESTERASE ,URINE NEGATIVE (NEGATIVE); NITRITE,URINE NEGATIVE (NEGATIVE); PH,URINE 5.5 (5-9); PROTEIN,URINE 2+ (NEGATIVE)
[2022-09-25 08:05] LABS: ALANINE AMINOTRANSFERASE 60 U/L (0-55); ALBUMIN 4.4 GM/DL (3.2-4.5); ALKALINE PHOSPHATASE 83 U/L (40-136); BILIRUBIN,TOTAL 0.3 MG/DL (0.1-1.0); BUN/CREATININE RATIO 16; CALCIUM 9.3 MG/DL (8.5-10.1); CARBON DIOXIDE 19 MMOL/L (21-32); CHLORIDE 111 MMOL/L (98-107); CHOLESTEROL 140 MG/DL (< 200); CREATININE SERUM 0.87 MG/DL (0.60-1.30); GFR ESTIMATED 101; GLUCOSE 119 MG/DL (70-105); HDL CHOLESTEROL 25 MG/DL (40-60); INR 0.9 (0.8-1.4); POTASSIUM 4.2 MMOL/L (3.6-5.0); PROTHROMBIN TIME PATIENT 12.9 SEC (12.2-14.7); SODIUM 142 MMOL/L (135-145); TOTAL PROTEIN 7.6 GM/DL (6.4-8.2); TRIGLYCERIDES 562 MG/DL (<150)
[2022-09-25 08:18] LABS: BACTERIA,URINE NEGATIVE /HPF; SQUAMOUS EPITHELIAL CELL,UR RARE /HPF
[~2022-09-25 09:00] MED LIST changes: +CANA300T PO; +CLIN-144 PO; -CLIN300C12 PO; +CLOP-31 PO; -CLOP75TA69 PO; -HEParin 1000 UNIT/ML (10ML VIAL) FOR BOLUS ONE; -LIDOCAINE 1% INJ 20 ML 20 ML VIAL ONE; +LIDOCAINE 1% INJ 30 ML (XYLOCAINE) VIAL ONE; +LISI20TA26 PO; -MIDAZOLAM 5 MG/5 ML (VERSED) VIAL ONE; +MONT-40 PO; +MTP100TCR PO; -NITRO DRIP 25000 MCG/D5W 250 ML IV ONE; +RT-ALBUINH INH; -TERB250T16 PO; +TERB250T88 PO; -VERAPAMIL 5 MG/2 ML (CALAN) VIAL IV ONE; -fentaNYL INJ 100 MCG/2 ML AMP ONE
[2022-09-25] MEDS ORDERED: VERAPAMIL 5 MG/2 ML (CALAN) VIAL IV ONE (09:09)
[2022-09-25] MEDS ORDERED: HEParin 1000 UNIT/ML (10ML VIAL) FOR BOLUS ONE (09:09)
[2022-09-25] MEDS ORDERED: MIDAZOLAM 5 MG/5 ML (VERSED) VIAL ONE (09:09)
[2022-09-25] MEDS ORDERED: fentaNYL INJ 100 MCG/2 ML AMP ONE (09:09)
[2022-09-25] MEDS ORDERED: NITRO DRIP 25000 MCG/D5W 250 ML IV ONE (09:10)
--- NOTE | 2022-09-25 09:13 | Cardiac Procedure Note-CS/ASA ---
Pre-Procedure Note Pre-Op Procedure Note Date of Available H&P: Sep 10, 2022 Date H&P Reviewed: Sep 25, 2022 Time H&P Reviewed: 09:13 History & Physical: H&P Reviewed, Patient Examed, No changes noted Pre-Operative Diagnosis: Coronary artery disease Conscious Sedation Pre-Proced Time 09:13 ASA Score 3 For ASA 3 and 4: Consider anesthesia and medical clearance. Also, for patients with a history of failed moderate sedation consider anesthesia. Airway Lungs Heart ASA score ASA 1: a normal healthy patient ASA 2: a patient with a mild systemic disease (mid diabetes, controlled hypertension, obesity ASA 3: a patient with a severe systemic disease that limits activity (angina, COPD, prior Myocardial infarction) ASA 4: a patient with an incapacitating disease that is a constant threat to life (CHF, renal failure) ASA 5: a moribund patient not expected to survive 24 hrs. (ruptured aneurysm) ASA 6: a declared brain- patient whose organs are being harvested. For emergent operations, add the letter E after the classification Mallampati Classification Grade 3 Sedation Plan Analgesia, Amnesia, Plan communicated to team members, Discussed options with patient/fam, Discussed risks with patient/fam The patient is an appropriate candidate to undergo the planned procedure, sedation, and anesthesia. The patient immediately re-assessed prior to indication. HAMMAD PYLE MD Sep 25, 2022 09:13
[2022-09-25] MEDS ORDERED: METF-478 PO (10:07)
--- NOTE | 2022-09-25 10:08 | Discharge Inst-Post CATH ---
Discharge Inst-CATH/EP Problems Reviewed?: Yes Post Cardiac Cath/EP D/C Inst Follow Up/Plan Hold metformin for [address] Zendejas's office in 2 to 4 weeks <b>CARDIAC CATH/EP PROCEDURE DISCHARGE INSTRUCTIONS</b> ACTIVITY * Go Home directly and rest. * Limit activity of the leg (or wrist if it was used) for 7 days including aerobics, swimming, jogging, bicycling, etc. * Restrict stair-climbing for 7 days if possible, if not, climb up with your non-cath leg, then bring together on the same step. * Avoid lifting, pushing, pulling or excessive movement of the affected extremity for 7 days. * Customary sexual activity may be resumed after 2 days-use caution not to use a position that strains or causes pain to the affected extremity. * No driving for 24 hours. * NO SMOKING. * Avoid straining for bowel movements for 7 days. * Gentle walking on level ground is allowed. * Returning to work will depend on the type of procedure and the results. Your doctor will discuss this with you. CALL YOUR DOCTOR FOR ANY OF THE FOLLOWING: *If bleeding from the puncture site occurs- Apply gentle pressure to site with clean cloth and call your doctor or EMS. * If a knot or lump forms under the skin, increases in size, or causes pain. * If bruising appears to be worsening or moving further down your leg instead of disappearing. * Temperature above 101 F. CARE OF YOUR GROIN INCISION; * Bruising or purple discoloration of the skin near the puncture site is common. * You may shower only, no bathtub bathing for 5 days. Be careful to avoid slipping as your leg may feel stiff. * If a closure device was used on your femoral artery, please see the attached guide regarding care of the device and your leg. * Leave dressing on FOR 24 hours. CARE OF YOUR WRIST INCISION; * Bruising or purple discoloration of the skin near the puncture site is common. * You may shower. * DO NOT submerge wrist. * Leave dressing on FOR 24 hours. HAMMAD ZENDEJAS MD Sep 25, 2022 10:08
--- NOTE | 2022-09-25 10:11 | Cardiac Cath Report ---
Cardiac Cath Report Physician (s)/Assistant Branch Operations Manager (s) Physician HAMMAD PYLE MD Pre-Procedure Diagnosis Pre-Procedure Diagnosis: Coronary artery disease Post-Procedure Note Procedure Start Date: Sep 25, 2022 Name of Procedure: Left heart catheterization Findings/Procedure Note PROCEDURE NOTE: 57-year-old gentleman with history of coronary artery disease, 3 stents to the right coronary artery, has baseline abnormal stress test, has been having recurrent chest pain, scheduled for cardiac catheterization possible PTCA. After explaining the procedure to the patient, all pros and cons were explained, all questions were answered. The patient signed the consent and then he was placed in the cardiac catheterization laboratory. Groin was prepped in SL fashion local anesthesia was used. Sheath placed in the right radial artery, [place] catheter was advanced to the left ventricular cavity, pressure was measured, pullback LV to aorta was done, engage the right coronary system. I was unable to engage the left coronary system, used multiple catheters, I was successful with EBU 3.5 guide in engaging the left system, angiogram was done. At the end of the procedure the sheath was removed. Vascular band was used FINDINGS: Hemodynamics LV 106/10, end-diastolic pressure of 10 Aorta 106/59 mean of 79 ANATOMY: Left Main is free of obstructive disease Left Anterior Descending has 20% stenosis in the midportion nonobstructive disease Left Circumflex is moderate in size with no obstructive disease Right Coronary Artery is dominant artery with multiple stents in the proximal and mid right coronary artery, patent stents, mild in-stent restenosis up to 20% nonobstructive disease LV Gram was not done, pressure was measured CONCLUSION: 1. Patent stent in the proximal and mid right coronary artery with 20% in-stent restenosis, dominant right coronary system. 2. Otherwise mild coronary artery disease nonobstructive disease 3. Normal left ventricular end-diastolic pressure DISCUSSION AND RECOMMENDATION: Continue with medical therapy, no intervention is warranted Anesthesia Type: Conscious Sedation Estimated blood loss (mL): 25 ml Contrast Amount: 80 ml Total Radiation Dose: 551 mGy Post-Procedure Diagnosis Post-operative diagnosis: Chest pain Coronary artery disease Hypertension Hyperlipidemia Diabetes mellitus HAMMAD PYLE MD Sep 25, 2022 10:11
[2022-09-25] MEDS ORDERED: NS IV 1000 ML 1,000 ML IV SCH (10:15)
== END 2022-09-25 12:45 | disposition home or self-care (01) ==
LOC: CATH 09:00 → SDC 10:23 → CATH 12:45
PROVIDERS: ATTEND Internal Medicine Cardiovascular Disease
DX: I25.10 Atherosclerotic heart disease of native coronary artery without angina pectoris (principal); I10 Essential (primary) hypertension; E11.9 Type 2 diabetes mellitus without complications; E66.9 Obesity, unspecified; E78.2 Mixed hyperlipidemia; I65.23 Occlusion and stenosis of bilateral carotid arteries; I73.9 Peripheral vascular disease, unspecified; F17.210 Nicotine dependence, cigarettes, uncomplicated; Z68.32 Body mass index [BMI] 32.0-32.9, adult; Z79.82 Long term (current) use of aspirin; Z79.4 Long term (current) use of insulin
CPT/HCPCS: 71045; 80053; 80061; 81000; 85027; 85610; 85730; 87081; 93005; 93458; C1887; C1894; 36415

== ENCOUNTER → 2022-10-16 | Outpatient (CLI) | payer MEDICAID ==
[~2022-10-16] MED LIST changes: -HEParin (CATH LAB) 2,000 ML IV ONE; +HOLD METFORMIN - RECEIVED CONTRAST 20 ML VIAL IV SCH; +IOHEXOL 350 MG/ML 100 ML (OMNIPAQUE 350) VIAL IV ONE; -LIDOCAINE 1% INJ 30 ML (XYLOCAINE) VIAL ONE; +NS 100 ML (IVPB) BAG IV ONE; -NS IV 1000 ML 1,000 ML IV SCH; -NS IV 1000 ML 1,000 ML ONE
--- NOTE | 2022-10-16 11:31 | Diagnostic Imaging Report ---
PROCEDURE: CT neck soft tissue with contrast. TECHNIQUE: Multiple contiguous axial images were obtained through the neck after the administration of contrast. Auto Exposure Controls were utilized during the CT exam to meet ALARA standards for radiation dose reduction. INDICATION: Hoarseness. Concern for mass on the vocal cord. COMPARISON: None. Findings: The posterior nasopharynx and oropharynx demonstrate appropriate symmetry. There is no displacement of the parapharyngeal fat planes. There is no abnormal process evident within the prevertebral or retropharyngeal space. There is no evidence of abnormal thickening of the epiglottis or aryepiglottic folds. There is slight thickening of the vocal cords. No discrete mass is seen in the vocal cords. No findings to suggest vocal cord paralysis. The parotid, submandibular and thyroid gland are unremarkable. No pathologically enlarged cervical lymph nodes are evident. No focal inflammatory changes are demonstrated. No soft tissue mass or fluid collection demonstrated. The vascular structures the neck demonstrate no evidence of high-grade stenosis on this nondedicated exam. Centrilobular emphysema is seen in the lung apices. The visualized intracranial contents demonstrate no evidence of pathologic intracranial enhancement or intracranial mass effect. Visualized orbital contents are unremarkable. Small amount of mucosal thickening is seen in the left maxillary sinus. The mastoids and middle ears are clear. No acute osseous abnormality in the cervical spine. Impression: 1. Slight thickening of the vocal cords without discrete mass or evidence of paralysis. Findings may represent an inflammatory/infectious process. Recommend continued follow-up and if symptoms persist consider direct visualization to further evaluate. 2. No pathologically enlarged lymphadenopathy in the neck. 3. Centrilobular emphysema in the lung apices. Dictated by: Dictated on workstation # [id number]
== END ==
LOC: RAD 10:16
PROVIDERS: ATTEND Otolaryngology Otolaryngology/Facial Plastic Surgery
DX: J38.7 Other diseases of larynx (principal); J43.2 Centrilobular emphysema
CPT/HCPCS: 70491